=== PATIENT | female | born 1960 | race Caucasian/White ===

== ENCOUNTER 2017-08-07 11:26 | Inpatient (IN) | payer OTHER ==
[~2017-08-07] VITALS: Ht 165.1 cm; Wt 77.1 kg
[2017-08-07 11:27] VITALS: BP 133/75; PULSE 94; RESP 20; TEMP 98.7; O2SAT 96
[2017-08-07] MEDS ORDERED: MIDAZOLAM HCL 2 MG/2 ML VIAL IV ONE (11:53)
[2017-08-07] MEDS ORDERED: PROPOFOL 200 MG/20 ML AMP IV ONE (11:53)
[2017-08-07] MEDS ORDERED: PHENYLEPH/NS 1000 MCG/10 ML SYR IV ONE (11:53)
[2017-08-07] MEDS ORDERED: ONDANSETRON HCL 4 MG/2 ML VIAL IV PUSH ONE (11:53)
[2017-08-07] MEDS ORDERED: DEXAMETHASONE SOD PHOS 4 MG/ML VIAL IV ONE (11:53)
[2017-08-07] MEDS ORDERED: LIDOCAINE HCL 1% PF 5 ML AMPULE OTHER ONE (11:53)
[2017-08-07] MEDS ORDERED: SODIUM CHLOR 0.9% 1000 ML INJ 1,000 ML IV SCH (12:03)
[2017-08-07] MEDS ORDERED: MORPHINE SULFATE 4 MG/ML INJ IV PUSH ONE ×2 (12:15→13:30)
[2017-08-07] MEDS ORDERED: ONDANSETRON HCL 4 MG/2 ML VIAL IVP ONE (12:15)
[2017-08-07] MEDS ORDERED: SODIUM CHLORIDE 0.9% FLUSH 10 ML FLUSH IV FLUSH PRN ×2 (12:15→16:45)
[2017-08-07] MEDS ORDERED: LIDOCAINE 2%/EPINEPHrine 1:100,000 20ML MDV NERV BLOCK ONE (12:15)
--- NOTE | 2017-08-07 12:15 | PD ---
HPI Chief Complaint: Skin Problem Time Seen by Provider: 11:55 Travel History International Travel<30 days: No Contact w/Intl Traveler<30days: No Traveled to known affect area: No History of Present Illness HPI Patient comes in complaining of left elbow pain improves worsen past 2 days. Patient states on the ninth of this month she was in [place] she tripped and fell injuring her left elbow. Patient states she went to the ER there and had x-rays done in 3 sutures placed. Patient states approximately 9 days ago she began noticing some infection went to a different ER was started on Keflex had sutures removed. Patient states over the past 3 days began having swelling and sharp stabbing pain in her left elbow. Pain is worse with certain movement of her left elbow and radiates proximally and distally. Denies any fevers, nausea, vomiting, chest pain, shortness breath, new injury, or numbness tingling anywhere. Patient's been taking naproxen for the pain that was held initially however got progressively worse over the past 2 days. PFSH Past Medical History Arthritis: Yes Anxiety: Yes COPD: Yes Diverticulitis: Yes Fibromyalgia: Yes ?: Not Tubal Ligation: Yes Past Surgical History Appendectomy: Yes Cholecystectomy: Yes Other Surgery: Yes (left knee, colon resection ) Social History Alcohol Use: Yes (couple times a week ) Tobacco Use: Yes (light smoker) Substance Use: No Allergies-Medications (Allergen,Severity, Reaction): Coded Allergies: No Known Allergies (Unverified , 08/07/17) Reported Meds & Prescriptions Reported Meds & Active Scripts Active Reported Zofran (Ondansetron HCl) 4 Mg Tab 4 Mg PO Q12HR PRN Doxepin (Doxepin HCl) 50 Mg Cap 50 Mg PO BID Zinc Gluconate 50 Mg Tab 50 Mg PO DAILY Humira 2-Pack Inj (Adalimumab 2-Pack Inj) 40 Mg/0.8 Ml Syr 40 Mg SQ Q14D Prednisone 20 Mg Tab 20 Mg PO DIRECTED 40 MG twice a day x 3 days, then 20 MG daily x 3 days, then 10 MG daily x 3 days Proair Hfa 8.5 GM Inh (Albuterol Sulfate) 90 Mcg/Act Aer 1 Puff INH Q4H PRN 108 mcg/actuation Dulera 120 Act Inh (Mometasone-Formoterol 120 Act Inh) 200-5 Mcg/Act Inh 2 Puff INH BID Folic Acid 0.8 Mg Tab 1,000 Mcg PO DAILY Levothyroxine (Levothyroxine Sodium) 50 Mcg Tab 50 Mcg PO DAILY Vitamin D-1000 (Cholecalciferol) 1,000 Unit Tab 1,000 Units PO DAILY Methotrexate 2.5 Mg Tab 2.5 Mg PO Q7D Wellbutrin Xl 24 HR (Bupropion HCl) 150 Mg Tab 150 Mg PO DAILY Wellbutrin Xl 24 HR (Bupropion HCl) 300 Mg Tab 300 Mg PO DAILY Naproxen Sodium 220 Mg Tab 300 Mg PO BID PRN Propranolol (Propranolol HCl) 60 Mg Tab 60 Mg PO Q6HR PRN Prozac (Fluoxetine HCl) 40 Mg Cap 120 Mg PO DAILY Prevacid (Lansoprazole) 30 Mg Capdr 30 Mg PO DAILY Gabapentin 600 Mg Tab 600 Mg PO HS Gabapentin 300 Mg Cap 300 Mg PO DAILY Review of Systems Except as stated in HPI: all other systems reviewed are Neg Physical Exam Narrative GENERAL: Well-developed, overly nourished, in no acute distress, and non-ill appearing. SKIN: Focused skin assessment warm and dry. Soft tissue swelling over left elbow joint. There is no definitive fluid collection. There is no crepitus. No fluctuation or drainage. There is a well-healing scar from recent injury noted over the lateral posterior elbow. HEAD: Atraumatic. Normocephalic. EYES: Pupils equal and round. EOMI. No scleral icterus. No injection or drainage. ENT: No nasal bleeding or discharge. Mucous membranes pink and moist. NECK: Trachea midline. Supple. No nuclear rigidity. CARDIOVASCULAR: Radial pulses 2+, nontender, and equal bilaterally. Capillary refill less than 2 seconds. RESPIRATORY: No accessory muscle use. No respiratory distress. MUSCULOSKELETAL: No obvious deformities. No clubbing. No cyanosis. No edema. Decreased range of motion left elbow secondary pain. Patient is unable to extend left elbow secondary to pain. Patient reports pain with passive and active pronation left hand. Pulses equal BL distal to injury. Capillary refill less than 2 seconds distal to injury and equal BL. FROM distal to injury and equal BL. Strength distal to injury equal BL. NV intact distal to injury and equal BL. Flexion and extension of thumb equal BL. Equal strength and movement with abduction/adductions of BL fingers. Electronic Test Technician strength equal BL. NEUROLOGICAL: Awake and alert. No obvious cranial nerve deficits. Motor grossly within normal limits. Normal speech. PSYCHIATRIC: Appropriate mood and affect; insight and judgment normal. Data Data Last Documented VS Vital Signs Date Time Temp Pulse Resp B/P (MAP) Pulse Ox O2 Delivery O2 Flow Rate FiO2 08/07/17 15:59 97.7 92 16 132/80 (97) 93 Room Air Orders Orders Basic Metabolic Panel (Bmp) (08/07/17 12:03) Complete Blood Count With Diff (08/07/17 12:03) Prothrombin Time / Inr (Pt) (08/07/17 12:03) Act Partial Throm Time (Ptt) (08/07/17 12:03) Iv Access Insert/Monitor (08/07/17 12:03) Ecg Monitoring (08/07/17 12:03) Oximetry (08/07/17 12:03) Morphine Inj (Morphine Inj) (08/07/17 12:15) Ondansetron Inj (Zofran Inj) (08/07/17 12:15) Sodium Chlor 0.9% 1000 Ml Inj (Ns 1000 M (08/07/17 12:03) Sodium Chloride 0.9% Flush (Ns Flush) (08/07/17 12:15) Lidocai-Epi 2%-1:100,000 Inj (Xylocaine- (08/07/17 12:15) Lactic Acid Sepsis Protocol (08/07/17 12:03) Blood Culture (08/07/17 12:03) Elbow, Complete (4 Vws) (08/07/17 ) Us Arm Venous Doppler (08/07/17 12:13) Uric Acid (08/07/17 12:15) Morphine Inj (Morphine Inj) (08/07/17 13:30) Mri Joint Elbow W&W/O Contrast (08/07/17 ) Lorazepam Inj (Ativan Inj) (08/07/17 14:00) Gadodiamide Pf Inj (Omniscan Pf Inj) (08/07/17 14:57) C-Reactive Protein (Crp) (08/07/17 15:09) Westergren Sedimentation Rate (08/07/17 15:09) Consult Orthopedic (08/07/17 ) Electrocardiogram (08/07/17 ) Comprehensive Metabolic Panel (08/08/17 06:00) Free Thyroxine (T4) (08/08/17 06:00) Hemoglobin (Hgb) A1c (08/08/17 06:00) Magnesium (Mg) (08/08/17 06:00) Phosphorus (Po4) (08/08/17 06:00) Thyroid Stimulating Hormone (08/08/17 06:00) Complete Blood Count With Diff (08/08/17 06:00) Clonidine (Catapres) (08/07/17 16:45) Admit Order (Ed Use Only) (08/07/17 16:34) Labs Laboratory Tests Test 08/07/17 12:25 08/07/17 12:34 White Blood Count 11.5 TH/MM3 Red Blood Count 3.54 MIL/MM3 Hemoglobin 12.1 GM/DL Hematocrit 36.5 % Mean Corpuscular Volume 103.0 FL Mean Corpuscular Hemoglobin 34.1 PG Mean Corpuscular Hemoglobin Concent 33.1 % Red Cell Distribution Width 14.3 % Platelet Count 378 TH/MM3 Mean Platelet Volume 7.5 FL Neutrophils (%) (Auto) 71.3 % Lymphocytes (%) (Auto) 14.8 % Monocytes (%) (Auto) 9.0 % Eosinophils (%) (Auto) 4.6 % Basophils (%) (Auto) 0.3 % Neutrophils # (Auto) 8.2 TH/MM3 Lymphocytes # (Auto) 1.7 TH/MM3 Monocytes # (Auto) 1.0 TH/MM3 Eosinophils # (Auto) 0.5 TH/MM3 Basophils # (Auto) 0.0 TH/MM3 CBC Comment DIFF FINAL Differential Comment Erythrocyte Sedimentation Rate 57 mm/hr Prothrombin Time 11.4 SEC Prothromb Time International Ratio 1.0 RATIO Activated Partial Thromboplast Time 28.0 SEC Blood Urea Nitrogen 15 MG/DL Creatinine 0.61 MG/DL Random Glucose 74 MG/DL Calcium Level 9.0 MG/DL Sodium Level 140 MEQ/L Potassium Level 3.4 MEQ/L Chloride Level 106 MEQ/L Carbon Dioxide Level 27.7 MEQ/L Anion Gap 6 MEQ/L Estimat Glomerular Filtration Rate 101 ML/MIN Lactic Acid Level 0.7 mmol/L C-Reactive Protein 22.00 MG/DL Uric Acid 2.8 MG/DL MDM Medical Decision Making Medical Screen Exam Complete: Yes Emergency Medical Condition: Yes Interpretation(s) Ultrasound read by the radiologist shows: Negative for deep venous thrombosis. Left elbow x-ray read by the radiologist shows: Joint effusion, no fracture MRI of the left elbow read by the radiologist shows: Presumed inflammatory process mainly involving the brachialis. The joint is suspected to be infected as well. There is no osteomyelitis as yet. Differential Diagnosis Bursitis, septic arthritis, septic bursitis, DVT, retained foreign body, gout, pseudogout, other Narrative Course Patient was seen and exam. Initial laboratory and radiological studies were ordered. Patient was given morphine for pain. Zofran for nausea. Discussed patient with Dr. Galvez, who saw and evaluated the patient and recommends discussing patient with orthopedics over concerns possible septic arthritis. Discussed all findings and plan care of patient is agreeable for admission. All questions were answered. Patient remained stable throughout her ED course. Physician Communication Physician Communication [id number] Ferro, who recommends MRI for further evaluation to rule out possible septic joint and hold antibiotics for now. 1620 Dr. Ferro, active reviewing MRI with patient admitted to medicine for surgical intervention. [address] Haley, who is agreeable to admit the patient. [address] Sage, radiologist reading MRI, states pierced to be an abscess in the joint. Diagnosis Primary Impression: Joint infection Admitting Information Admitting Physician Requests: Admit Condition: Stable Rashaad Reina Aug 07, 2017 12:15
[2017-08-07 12:40] LABS: AUTOMATED NEUTROPHIL # 8.2 TH/MM3 (1.8-7.7); BASOPHIL % 0.3 % (0.0-2.0); EOSINOPHIL # 0.5 TH/MM3 (0-0.4); EOSINOPHIL % 4.6 % (0.0-4.0); HEMATOCRIT 36.5 % (35.0-46.0); HEMO FLAGS DIFF FINAL; LYMPH % 14.8 % (9.0-44.0); LYMPHOCYTE # 1.7 TH/MM3 (1.0-4.8); MEAN CORPUSCULAR HEMOGLOBIN 34.1 PG (27.0-34.0); MEAN CORPUSCULAR HGB CONC 33.1 % (32.0-36.0); NEUT % 71.3 % (16.0-70.0); PLATELET COUNT 378 TH/MM3 (150-450); RED BLOOD COUNT 3.54 MIL/MM3 (4.00-5.30); RED CELL DISTRIBUTION WIDTH 14.3 % (11.6-17.2); WHITE BLOOD COUNT 11.5 TH/MM3 (4.0-11.0)
[2017-08-07 12:51] LABS: PROTHROMBIN TIME - PATIENT 11.4 SEC (9.8-11.6)
--- NOTE | 2017-08-07 13:02 | RADRPT ---
EXAM DATE/TIME: 08/07/2017 12:30 [facility] COMPARISON: No previous studies available for comparison. INDICATIONS : Left arm swelling and pain. MEDICAL HISTORY : Chronic obstructive pulmonary disease. Diverticulitis. Arthritis. Fibromyalgia. Anixety. SURGICAL HISTORY : Appendectomy. Cholecystectomy. Tubal ligation. Left knee surgery. Colon resec tion. ENCOUNTER: Initial ACUITY: 2 day PAIN SCORE: 8/10 LOCATION: Left arm. FINDINGS: There is spontaneous flow documented in the brachial, basilic, cephalic, axillary, and subclavian vei ns. The vessels are compressible and augmentation response is documented. No filling defects are se en. The flow is phasic with respiration. Direction of flow in the jugular vein is caudal. CONCLUSION: Negative for deep venous thrombosis. Naveed Sage MD FACR on August 07, 2017 at 13:00 Board Certified Radiologist. This report was verified electronically.
[2017-08-07 13:04] LABS: BICARBONATE 27.7 MEQ/L (21.0-32.0); POTASSIUM 3.4 MEQ/L (3.5-5.1)
--- NOTE | 2017-08-07 13:59 | RADRPT ---
EXAM DATE/TIME: 08/07/2017 13:12 [facility] COMPARISON: No previous studies available for comparison. INDICATIONS : Fell 07-20-17 laceration to left elbow, sutured/sutures removed, now swollen, red, hot to touch, with d ifficult motion. MEDICAL HISTORY : None. SURGICAL HISTORY : None. ENCOUNTER: Initial ACUITY: 2 weeks PAIN SCORE: 10/10 LOCATION: Left elbow. FINDINGS: Moderate joint effusion is evident. Alignment is anatomic. No fracture CONCLUSION: Joint effusion, no fracture Naveed Sage MD FACR on August 07, 2017 at 13:56 Board Certified Radiologist. This report was verified electronically.
[2017-08-07] MEDS ORDERED: LORazepam 2 MG/ML VIAL IV PUSH ONE (14:00)
[2017-08-07] MEDS ORDERED: GADODIAMIDE PF 287 MG/ML 5 ML VIAL (for RAD MRI) IVCONTRAST ONE (14:57)
[2017-08-07 15:59] VITALS: BP 132/80; PULSE 92; RESP 16; TEMP 97.7; O2SAT 93
[2017-08-07] MEDS ORDERED: GABA300C5 PO (16:11)
[2017-08-07] MEDS ORDERED: GABA600T PO (16:11)
[2017-08-07] MEDS ORDERED: PREV30CA11 PO (16:15)
[2017-08-07] MEDS ORDERED: PROZ40CA PO (16:15)
[2017-08-07] MEDS ORDERED: VITA1000 PO (16:22)
[2017-08-07] MEDS ORDERED: ALBUAER3 INH (16:22)
[2017-08-07] MEDS ORDERED: MEDI220T PO (16:22)
[2017-08-07] MEDS ORDERED: PRED20 PO (16:22)
[2017-08-07] MEDS ORDERED: METH2.5T PO (16:22)
[2017-08-07] MEDS ORDERED: WELLTAB39 PO (16:22)
[2017-08-07] MEDS ORDERED: LEVO50TA4 PO (16:22)
[2017-08-07] MEDS ORDERED: PROP60TA PO (16:22)
[2017-08-07] MEDS ORDERED: HUMI40KI SQ (16:22)
[2017-08-07] MEDS ORDERED: FOLI800T PO (16:22)
[2017-08-07] MEDS ORDERED: DULE200A INH (16:22)
[2017-08-07] MEDS ORDERED: BUPR150XL PO (16:22)
[2017-08-07] MEDS ORDERED: ZOFR4TAB PO (16:23)
[2017-08-07] MEDS ORDERED: DOXE50CA3 PO (16:23)
[2017-08-07] MEDS ORDERED: CYAN1TAB24 (16:23)
[2017-08-07] MEDS ORDERED: ZINC50TA2 PO (16:23)
--- NOTE | 2017-08-07 16:40 | RADRPT ---
EXAM DATE/TIME: 08/07/2017 14:11 [facility] COMPARISON: No previous studies available for comparison. INDICATIONS : Left elbow pain and swelling after falling two weeks ago, which caused a cut wit h stitches. CONTRAST: 15 cc Omniscan (gadodiamide) IV MEDICAL HISTORY : None. SURGICAL HISTORY : Appendectomy. Cholecystectomy. Colon resection. Lt knee, tonsils ENCOUNTER: Subsequent ACUITY: 1 week PAIN SCORE: 5/10 LOCATION: Left elbow TECHNIQUE: Multiplanar, multisequence MRI examination was performed without contrast and after th e intravenous administration of gadolinium. FINDINGS: There is a large fluid collection in the brachialis muscle adjacent to the bone showing intense contrast enhancement around the fluid collection and in the muscle. This enhancement extend s anteriorly into the antecubital fossa in intimate association with the effusion present that shows intense enhancement as well. There is the most part spared the biceps. The bulk of this lies latera l to and displaces the neurovascular bundle. There is an early bifurcation of the brachial artery ju st above the elbow. artery above the elbow Extensive subcutaneous edema is present without defined fluid collections. I do not see any marrow edema to suggest osteomyelitis. CONCLUSION: Presumed inflammatory process mainly involving the brachialis. The joint is suspecte d to be infected as well. There is no osteomyelitis as yet. Neurovascular bundle is displaced media lly there are brachial bifurcation findings have been discussed with Latosha FRANCOIS on today's date. Naveed Sage MD FACR on August 07, 2017 at 16:29 Board Certified Radiologist. This report was verified electronically.
[2017-08-07] MEDS ORDERED: oxyCODONE/ACETAMINOPHEN 5 MG/325 MG TAB PO PRN (16:45)
[2017-08-07] MEDS ORDERED: MAGNESIUM HYDROXIDE SUSP 30 ML CUP PO PRN (16:45)
[2017-08-07] MEDS ORDERED: ALBUTEROL SULFATE 90 MCG/ACT HFA 8 GM INHALER INH PRN (16:45)
[2017-08-07] MEDS ORDERED: PROPRANOLOL HCL 20 MG TAB PO PRN (16:45)
[2017-08-07] MEDS ORDERED: NALOXONE HCL 0.4 MG/ML AMP IV PUSH PRN (16:45)
[2017-08-07] MEDS ORDERED: LACTULOSE SYRUP 20 GM/30 ML CUP PO PRN (16:45)
[2017-08-07] MEDS ORDERED: SENNOSIDES 8.6 MG TAB PO PRN (16:45)
[2017-08-07] MEDS ORDERED: ONDANSETRON ODT 4 MG TAB PO PRN (16:45)
[2017-08-07] MEDS ORDERED: ONDANSETRON HCL 4 MG/2 ML VIAL IVP PRN (16:45)
[2017-08-07] MEDS ORDERED: cloNIDine HCL 0.1 MG TAB PO PRN (16:45)
[2017-08-07] MEDS ORDERED: PROCHLORPERAZINE 25 MG SUPP RECTAL PRN (16:45)
[2017-08-07] MEDS ORDERED: MORPHINE SULFATE 4 MG/ML INJ IV PUSH PRN ×2 (16:45)
[2017-08-07] MEDS ORDERED: BISACODYL 10 MG SUPP RECTAL PRN (16:45)
[2017-08-07 16:55] VITALS: O2SAT 96
--- NOTE | 2017-08-07 17:17 | RADRPT ---
EXAM DATE/TIME: 08/07/2017 16:38 [facility] COMPARISON: No previous studies available for comparison. INDICATIONS : Cough. MEDICAL HISTORY : Appendectomy. Cholecystectomy. Colon resection. SURGICAL HISTORY : None. ENCOUNTER: Initial ACUITY: 1 day PAIN SCORE: Non-responsive. LOCATION: Bilateral chest FINDINGS: A single view of the chest demonstrates the lungs to be symmetrically aerated without evidence of mas s, infiltrate or effusion. The cardiomediastinal contours are unremarkable. Osseous structures are intact. CONCLUSION: No acute disease. Naveed Sage MD FACR on August 07, 2017 at 17:15 Board Certified Radiologist. This report was verified electronically.
--- NOTE | 2017-08-07 17:47 | PD.CONS ---
HPI Service Orthopedic Surgeons Consult Requested By Reason for Consult Concern for septic arthritis left elbow Primary Care Physician No Primary Care Physician Admission Diagnosis Left elbow septic arthritis and abscess Diagnoses: Chief Complaint: Left elbow pain and swelling History of Present Illness 57yo F with history of fall ~20 days ago with superficial left elbow laceration which was sutured in the ED in [place]. About 10 days ago, sutures were removed and there was concern for infection and patient was started on keflex. Patient reports the last 3 days increasing left elbow pain, swelling, redness and increasing pain on the anterior aspect of her distal arm. She denies any numbness or tingling. Denies fevers or chills. Denies any drainage from wound. Review of Systems Constitutional: DENIES: Fever, Night Sweats Endocrine: DENIES: Polyuria Eyes: DENIES: Blurred vision Ears, nose, mouth, throat: DENIES: Running Nose Respiratory: DENIES: Cough, Shortness of breath Cardiovascular: DENIES: Chest pain Gastrointestinal: DENIES: Abdominal pain Genitourinary: DENIES: Hematuria Musculoskeletal: COMPLAINS OF: Joint pain, Muscle aches, Stiffness, Joint Swelling Integumentary: DENIES: Rash Hematologic/lymphatic: DENIES: Lymphadenopathy Immunologic/allergic: DENIES: Eczema Neurologic: DENIES: Headache Psychiatric: DENIES: Anxiety Past Family Social History Past Medical History Rheumatoid arthritis on methrotrexate and biweekly humira injections Allergies: Coded Allergies: No Known Allergies (Unverified , 08/07/17) Active Ordered Medications Current Medications Medications (Trade) Dose Ordered Sig/Leon Route Start Time Stop Time Status Last Admin (NS Flush) 2 ml UNSCH PRN IV FLUSH 08/07/17 12:15 (Catapres) 0.1 mg Q4H PRN PO 08/07/17 16:45 Sodium Chloride 1,000 ml @ 100 mls/hr Q10H IV 08/07/17 16:34 (NS Flush) 2 ml UNSCH PRN IV FLUSH 08/07/17 16:45 (NS Flush) 2 ml BID IV FLUSH 08/07/17 21:00 (Tylenol) 650 mg Q4H PRN PO 08/07/17 16:45 (Zofran Inj) 4 mg Q6H PRN IVP 08/07/17 16:45 (Compazine Supp) 25 mg Q12H PRN RECTAL 08/07/17 16:45 (Ambien) 5 mg HS PRN PO 08/07/17 16:45 (Tylenol) 650 mg Q6H PRN PO 08/07/17 16:45 (Percocet 5-325 Mg) 1 tab Q6H PRN PO 08/07/17 16:45 (Percocet 10-325 Mg) 1 tab Q6H PRN PO 08/07/17 16:45 (Morphine Inj) 2 mg Q3H PRN IV PUSH 08/07/17 16:45 (Morphine Inj) 4 mg Q3H PRN IV PUSH 08/07/17 16:45 (Narcan Inj) 0.4 mg UNSCH PRN IV PUSH 08/07/17 16:45 (Ronit-Colace) 1 tab BID PO 08/07/17 21:00 (Milk Of Magnesia Liq) 30 ml Q12H PRN PO 08/07/17 16:45 (Senokot) 17.2 mg Q12H PRN PO 08/07/17 16:45 (Dulcolax Supp) 10 mg DAILY PRN RECTAL 08/07/17 16:45 (Lactulose Liq) 30 ml DAILY PRN PO 08/07/17 16:45 (Proair Hfa Inh) 1 puff Q4H PRN INH 08/07/17 16:45 (Wellbutrin Xl 24 Hr) 150 mg DAILY PO 08/08/17 09:00 UNV (Wellbutrin Xl 24 Hr) 300 mg DAILY PO 08/08/17 09:00 UNV (Vitamin D3) 1,000 units DAILY PO 08/08/17 09:00 (SINEquan) 50 mg BID PO 08/07/17 21:00 (Folate) 1 mg DAILY PO 08/08/17 09:00 (Neurontin) 300 mg DAILY PO 08/08/17 09:00 (Neurontin) 600 mg HS PO 08/07/17 21:00 (Synthroid) 50 mcg DAILY PO 08/08/17 09:00 (Rheumatrex) 2.5 mg Q7D PO 08/07/17 16:45 UNV Non-Formulary Medication 120 mg DAILY PO 08/08/17 09:00 UNV (Protonix) 40 mg DAILY PO 08/08/17 09:00 Non-Formulary Medication 2 puff BID INH 08/07/17 21:00 Non-Formulary Medication 4 mg Q12HR PRN PO 08/07/17 16:45 UNV (Inderal) 60 mg Q6HR PRN PO 08/07/17 16:45 Reported Meds & Active Scripts Active Reported Zofran (Ondansetron HCl) 4 Mg Tab 4 Mg PO Q12HR PRN Doxepin (Doxepin HCl) 50 Mg Cap 50 Mg PO BID Zinc Gluconate 50 Mg Tab 50 Mg PO DAILY Humira 2-Pack Inj (Adalimumab 2-Pack Inj) 40 Mg/0.8 Ml Syr 40 Mg SQ Q14D Prednisone 20 Mg Tab 20 Mg PO DIRECTED 40 MG twice a day x 3 days, then 20 MG daily x 3 days, then 10 MG daily x 3 days Proair Hfa 8.5 GM Inh (Albuterol Sulfate) 90 Mcg/Act Aer 1 Puff INH Q4H PRN 108 mcg/actuation Dulera 120 Act Inh (Mometasone-Formoterol 120 Act Inh) 200-5 Mcg/Act Inh 2 Puff INH BID Folic Acid 0.8 Mg Tab 1,000 Mcg PO DAILY Levothyroxine (Levothyroxine Sodium) 50 Mcg Tab 50 Mcg PO DAILY Vitamin D-1000 (Cholecalciferol) 1,000 Unit Tab 1,000 Units PO DAILY Methotrexate 2.5 Mg Tab 2.5 Mg PO Q7D Wellbutrin Xl 24 HR (Bupropion HCl) 150 Mg Tab 150 Mg PO DAILY Wellbutrin Xl 24 HR (Bupropion HCl) 300 Mg Tab 300 Mg PO DAILY Naproxen Sodium 220 Mg Tab 300 Mg PO BID PRN Propranolol (Propranolol HCl) 60 Mg Tab 60 Mg PO Q6HR PRN Prozac (Fluoxetine HCl) 40 Mg Cap 120 Mg PO DAILY Prevacid (Lansoprazole) 30 Mg Capdr 30 Mg PO DAILY Gabapentin 600 Mg Tab 600 Mg PO HS Gabapentin 300 Mg Cap 300 Mg PO DAILY Family History No history of septic arthritis Social History Denies smoking. Occasional alcohol. Just moved from [place] Physical Exam Vital Signs Vital Signs Date Time Temp Pulse Resp B/P (MAP) Pulse Ox O2 Delivery O2 Flow Rate FiO2 08/07/17 16:55 96 21 08/07/17 15:59 97.7 92 16 132/80 (97) 93 Room Air 08/07/17 15:35 16 08/07/17 15:35 16 08/07/17 11:45 95 18 08/07/17 11:27 98.7 94 20 133/75 (94) 96 Room Air Physical Exam Awake, alert. NAD Normocephalic Non-labored respirations Regular rate No abdominal pain or distension No appreciable axillary lymphadenopathy BUE LUE: significant edema, mild erythema and TTP about the distal arm and elbow. Allows ROM from approx 50-100 deg. Will not fully extend or flex. Palpable radial pulse. 5/5 strength with wrist flexion/extension, finger flexion and extension. RUE & BLE: without edema, erythema or TTP. Normal strength and sensation Laboratory Laboratory Tests Test 08/07/17 12:25 08/07/17 12:34 White Blood Count 11.5 Red Blood Count 3.54 Hemoglobin 12.1 Hematocrit 36.5 Mean Corpuscular Volume 103.0 Mean Corpuscular Hemoglobin 34.1 Mean Corpuscular Hemoglobin Concent 33.1 Red Cell Distribution Width 14.3 Platelet Count 378 Mean Platelet Volume 7.5 Neutrophils (%) (Auto) 71.3 Lymphocytes (%) (Auto) 14.8 Monocytes (%) (Auto) 9.0 Eosinophils (%) (Auto) 4.6 Basophils (%) (Auto) 0.3 Neutrophils # (Auto) 8.2 Lymphocytes # (Auto) 1.7 Monocytes # (Auto) 1.0 Eosinophils # (Auto) 0.5 Basophils # (Auto) 0.0 CBC Comment DIFF FINAL Differential Comment Erythrocyte Sedimentation Rate 57 Prothrombin Time 11.4 Prothromb Time International Ratio 1.0 Activated Partial Thromboplast Time 28.0 Blood Urea Nitrogen 15 Creatinine 0.61 Random Glucose 74 Calcium Level 9.0 Sodium Level 140 Potassium Level 3.4 Chloride Level 106 Carbon Dioxide Level 27.7 Anion Gap 6 Estimat Glomerular Filtration Rate 101 Lactic Acid Level 0.7 C-Reactive Protein 22.00 Uric Acid 2.8 Date/Time Source Procedure Growth Status 08/07/17 12:25 Blood Peripheral Aerobic Blood Culture Pending Received 08/07/17 12:25 Blood Peripheral Anaerobic Blood Culture Pending Received Result Diagram: 08/07/17 1225 08/07/17 1225 Imaging L elbow XR without evidence of fracture L elbow MRI with significant joint effusion and tracking abscess deep to brachialis and stranding within brachialis concerning for infection Assessment & Plan Problem List: (1) Joint infection ICD Codes: M00.9 - Pyogenic arthritis, unspecified Status: Acute Plan: Discussed with the patient the concern for left elbow septic arthritis with deep abscess. Risks, benefits and alternatives of surgical management discussed with the patient. Plan is for left elbow irrigation and debridement. I explained the risks of surgery, including but not limited to recurrent infection, need for further surgery, long-term damage to the joint, possible damage to neurovascular structures, and other unforeseen complications. Patient voiced understanding and wishes to proceed with surgery. NPO for OR today Plan for intraop cultures. Please hold antibiotics unless patient becomes unstable. Ethel Ferro MD Aug 07, 2017 17:47
--- NOTE | 2017-08-07 17:58 | HHI.HP ---
HPI Service [facility] Primary Care Physician No Primary Care Physician Admission Diagnosis left elbow joint abscess Diagnoses: (1) Joint infection Diagnosis: Principal Chief Complaint: Left elbow pain and swelling Travel History International Travel<30 Days: No Contact w/Intl Traveler <30 Da: No Traveled to Known Affected Are: No History of Present Illness Ms. Hollingsworth is a 57-year-old female patient with a known medical history of COPD , rheumatoid arthritis and fibromyalgia who presented to the ED with complaints of worsening left elbow swelling and pain. Patient states that she was in [place] earlier this month with friends and tripped, falling on her elbow. At the time patient went to the hospital for sutures and 9 days later started to develop swelling and erythema to the site, was placed on Keflex and sutures removed. Patient noticed three days ago the elbow began to swell again and develop erythema with worsening pain so she presented here. Pain is throbbing in nature, focused in the olecranon area, no radiation, 7/10 on pain scale, with activity worsening pain and pain medication relieving pain for a short time. Patient denies any recent illness including associated fevers, chills, cough, headache, lightheadedness, dizziness, shortness of breath, abdominal pain , nausea, vomiting, diarrhea or dysuria. Denies any numbness or tingling to left hand or arm. Review of Systems Constitutional: DENIES: Fever, Chills Endocrine: DENIES: Polydipsia, Polyuria, Polyphagia Eyes: DENIES: Diplopia, Vision loss Respiratory: DENIES: Cough, Sputum production, Shortness of breath Cardiovascular: DENIES: Chest pain, Palpitations Gastrointestinal: DENIES: Abdominal pain, Bloody stools, Constipation, Diarrhea , Nausea, Vomiting Musculoskeletal: COMPLAINS OF: Joint pain, Joint Swelling (left elbow) Integumentary: DENIES: Abnormal pigmentation, Pruritus Hematologic/lymphatic: DENIES: Bruising, Lymphadenopathy Immunologic/allergic: DENIES: Eczema, Urticaria Neurologic: DENIES: Abnormal gait, Headache, Localized weakness, Paresthesias Psychiatric: DENIES: Anxiety, Confusion, Mood changes, Depression Except as stated in HPI: all other systems reviewed are Neg Past Family Social History Past Medical History Rheumatoid arthritis Anxiety COPD Diverticulitis Fibromyalgia Depression Past Surgical History Left knee surgery x 2 Colon resection 8 years ago Tubal ligation Reported Medications Active Reported Zofran (Ondansetron HCl) 4 Mg Tab 4 Mg PO Q12HR PRN Doxepin (Doxepin HCl) 50 Mg Cap 50 Mg PO BID Zinc Gluconate 50 Mg Tab 50 Mg PO DAILY Humira 2-Pack Inj (Adalimumab 2-Pack Inj) 40 Mg/0.8 Ml Syr 40 Mg SQ Q14D Prednisone 20 Mg Tab 20 Mg PO DIRECTED 40 MG twice a day x 3 days, then 20 MG daily x 3 days, then 10 MG daily x 3 days Proair Hfa 8.5 GM Inh (Albuterol Sulfate) 90 Mcg/Act Aer 1 Puff INH Q4H PRN 108 mcg/actuation Dulera 120 Act Inh (Mometasone-Formoterol 120 Act Inh) 200-5 Mcg/Act Inh 2 Puff INH BID Folic Acid 0.8 Mg Tab 1,000 Mcg PO DAILY Levothyroxine (Levothyroxine Sodium) 50 Mcg Tab 50 Mcg PO DAILY Vitamin D-1000 (Cholecalciferol) 1,000 Unit Tab 1,000 Units PO DAILY Methotrexate 2.5 Mg Tab 2.5 Mg PO Q7D Wellbutrin Xl 24 HR (Bupropion HCl) 150 Mg Tab 150 Mg PO DAILY Wellbutrin Xl 24 HR (Bupropion HCl) 300 Mg Tab 300 Mg PO DAILY Naproxen Sodium 220 Mg Tab 300 Mg PO BID PRN Propranolol (Propranolol HCl) 60 Mg Tab 60 Mg PO Q6HR PRN Prozac (Fluoxetine HCl) 40 Mg Cap 120 Mg PO DAILY Prevacid (Lansoprazole) 30 Mg Capdr 30 Mg PO DAILY Gabapentin 600 Mg Tab 600 Mg PO HS Gabapentin 300 Mg Cap 300 Mg PO DAILY Allergies: Coded Allergies: No Known Allergies (Unverified , 08/07/17) Active Ordered Medications Current Medications Medications (Trade) Dose Ordered Sig/Leon Route Start Time Stop Time Status Last Admin (NS Flush) 2 ml UNSCH PRN IV FLUSH 08/07/17 12:15 (Catapres) 0.1 mg Q4H PRN PO 08/07/17 16:45 Sodium Chloride 1,000 ml @ 100 mls/hr Q10H IV 08/07/17 16:34 (NS Flush) 2 ml UNSCH PRN IV FLUSH 08/07/17 16:45 (NS Flush) 2 ml BID IV FLUSH 08/07/17 21:00 (Tylenol) 650 mg Q4H PRN PO 08/07/17 16:45 (Zofran Inj) 4 mg Q6H PRN IVP 08/07/17 16:45 (Compazine Supp) 25 mg Q12H PRN RECTAL 08/07/17 16:45 (Ambien) 5 mg HS PRN PO 08/07/17 16:45 (Tylenol) 650 mg Q6H PRN PO 08/07/17 16:45 (Percocet 5-325 Mg) 1 tab Q6H PRN PO 08/07/17 16:45 (Percocet 10-325 Mg) 1 tab Q6H PRN PO 08/07/17 16:45 (Morphine Inj) 2 mg Q3H PRN IV PUSH 08/07/17 16:45 (Morphine Inj) 4 mg Q3H PRN IV PUSH 08/07/17 16:45 (Narcan Inj) 0.4 mg UNSCH PRN IV PUSH 08/07/17 16:45 (Ronit-Colace) 1 tab BID PO 08/07/17 21:00 (Milk Of Magnesia Liq) 30 ml Q12H PRN PO 08/07/17 16:45 (Senokot) 17.2 mg Q12H PRN PO 08/07/17 16:45 (Dulcolax Supp) 10 mg DAILY PRN RECTAL 08/07/17 16:45 (Lactulose Liq) 30 ml DAILY PRN PO 08/07/17 16:45 (Proair Hfa Inh) 1 puff Q4H PRN INH 08/07/17 16:45 (Wellbutrin Xl 24 Hr) 150 mg DAILY PO 08/08/17 09:00 UNV (Wellbutrin Xl 24 Hr) 300 mg DAILY PO 08/08/17 09:00 UNV (Vitamin D3) 1,000 units DAILY PO 08/08/17 09:00 (SINEquan) 50 mg BID PO 08/07/17 21:00 (Folate) 1 mg DAILY PO 08/08/17 09:00 (Neurontin) 300 mg DAILY PO 08/08/17 09:00 (Neurontin) 600 mg HS PO 08/07/17 21:00 (Synthroid) 50 mcg DAILY PO 08/08/17 09:00 (Rheumatrex) 2.5 mg Q7D PO 08/07/17 16:45 UNV Non-Formulary Medication 120 mg DAILY PO 08/08/17 09:00 UNV (Protonix) 40 mg DAILY PO 08/08/17 09:00 Non-Formulary Medication 2 puff BID INH 08/07/17 21:00 Non-Formulary Medication 4 mg Q12HR PRN PO 08/07/17 16:45 UNV (Inderal) 60 mg Q6HR PRN PO 08/07/17 16:45 Family History Denies any significant family medical history. Social History Patient admits to smoking cigarettes socially. Admits to drinking alcohol socially. Denies any illicit drug use. Physical Exam Vital Signs Vital Signs Date Time Temp Pulse Resp B/P (MAP) Pulse Ox O2 Delivery O2 Flow Rate FiO2 08/07/17 16:55 96 21 08/07/17 15:59 97.7 92 16 132/80 (97) 93 Room Air 08/07/17 15:35 16 08/07/17 15:35 16 08/07/17 11:45 95 18 08/07/17 11:27 98.7 94 20 133/75 (94) 96 Room Air Physical Exam GENERAL: This is a well-nourished, well-developed female patient, sitting up in bed in no apparent distress. SKIN: No rashes, ecchymoses or lesions. Warm and dry. HEENT: Atraumatic. Normocephalic. Pupils equal round and reactive. Extraocular motions intact. No scleral icterus. No injection or drainage. Nose without bleeding. Airway patent. NECK: Trachea midline. No JVD. Supple. CARDIOVASCULAR: Regular rate and rhythm without murmurs, gallops, or rubs. S1 and S2 present. No S3 or S4. RESPIRATORY: Clear to auscultation. Breath sounds equal bilaterally. No wheezes , rales, or rhonchi. GASTROINTESTINAL: Abdomen soft, non-tender, nondistended. No guarding. MUSCULOSKELETAL: Extremities without clubbing, cyanosis. Left elbow edema and tenderness, erythremic NEUROLOGICAL: Awake and alert. Cranial nerves II through XII intact. Motor and sensory grossly within normal limits. Five out of 5 muscle strength in all muscle groups. Normal speech. Site and judgment is good mood and behavior is appropriate Laboratory Laboratory Tests Test 08/07/17 12:25 08/07/17 12:34 White Blood Count 11.5 Red Blood Count 3.54 Hemoglobin 12.1 Hematocrit 36.5 Mean Corpuscular Volume 103.0 Mean Corpuscular Hemoglobin 34.1 Mean Corpuscular Hemoglobin Concent 33.1 Red Cell Distribution Width 14.3 Platelet Count 378 Mean Platelet Volume 7.5 Neutrophils (%) (Auto) 71.3 Lymphocytes (%) (Auto) 14.8 Monocytes (%) (Auto) 9.0 Eosinophils (%) (Auto) 4.6 Basophils (%) (Auto) 0.3 Neutrophils # (Auto) 8.2 Lymphocytes # (Auto) 1.7 Monocytes # (Auto) 1.0 Eosinophils # (Auto) 0.5 Basophils # (Auto) 0.0 CBC Comment DIFF FINAL Differential Comment Erythrocyte Sedimentation Rate 57 Prothrombin Time 11.4 Prothromb Time International Ratio 1.0 Activated Partial Thromboplast Time 28.0 Blood Urea Nitrogen 15 Creatinine 0.61 Random Glucose 74 Calcium Level 9.0 Sodium Level 140 Potassium Level 3.4 Chloride Level 106 Carbon Dioxide Level 27.7 Anion Gap 6 Estimat Glomerular Filtration Rate 101 Lactic Acid Level 0.7 C-Reactive Protein 22.00 Uric Acid 2.8 Date/Time Source Procedure Growth Status 08/07/17 12:25 Blood Peripheral Aerobic Blood Culture Pending Received 08/07/17 12:25 Blood Peripheral Anaerobic Blood Culture Pending Received Result Diagram: 08/07/17 1225 08/07/17 1225 Imaging Last Impressions Upper Extremity Ultrasound 08/07/17 1213 Signed Impressions: Service Date/Time: Monday, August 07, 2017 12:30 - CONCLUSION: Negative for deep venous thrombosis. Naveed Sage MD FACR Elbow X-Ray 08/07/17 0000 Signed Impressions: Service Date/Time: Monday, August 07, 2017 13:12 - CONCLUSION: Joint effusion, no fracture Naveed Sage MD FACR Caprini VTE Risk Assessment Caprini VTE Risk Assessment: No/Low Risk (score <= 1) Caprini Risk Assessment Model Point Value = 1 Point Value = 2 Point Value = 3 Point Value = 5 Age 41-60 Minor surgery BMI > 25 kg/m2 Swollen legs Varicose veins or History of unexplained or recurrent spontaneous Oral contraceptives or hormone replacement Sepsis (< 1 month) Serious lung disease, including pneumonia (< 1 month) Abnormal pulmonary function Acute myocardial infarction Congestive heart failure (< 1 month) History of inflammatory bowel disease Medical patient at bed rest Age 61-74 Arthroscopic surgery Major open surgery (> 45 min) Laparoscopic surgery (> 45 min) Malignancy Confined to bed (> 72 hours) Immobilizing plaster cast Central venous access Age >= 75 History of VTE Family history of VTE Factor V Leiden Prothrombin [id number] Lupus anticoagulant Anticardiolipin antibodies Elevated serum homocysteine Heparin-induced thrombocytopenia Other congenital or acquired thrombophilia Stroke (< 1 month) Elective arthroplasty Hip, pelvis, or leg fracture Acute spinal cord injury (< 1 month) Prophylaxis Regimen Total Risk Factor Score Risk Level Prophylaxis Regimen 0-1 Low Early ambulation 2 Moderate Order ONE of the following: *Sequential Compression Device (SCD) *Heparin 5000 units SQ BID 3-4 Higher Order ONE of the following medications: *Heparin 5000 units SQ TID *Enoxaparin/Lovenox 40 mg SQ daily (WT < 150 kg, CrCl > 30 mL/min) *Enoxaparin/Lovenox 30 mg SQ daily (WT < 150 kg, CrCl > 10-29 mL/min) *Enoxaparin/Lovenox 30 mg SQ BID (WT < 150 kg, CrCl > 30 mL/min) AND/OR *Sequential Compression Device (SCD) 5 or more Highest Order ONE of the following medications: *Heparin 5000 units SQ TID (Preferred with Epidurals) *Enoxaparin/Lovenox 40 mg SQ daily (WT < 150 kg, CrCl > 30 mL/min) *Enoxaparin/Lovenox 30 mg SQ daily (WT < 150 kg, CrCl > 10-29 mL/min) *Enoxaparin/Lovenox 30 mg SQ BID (WT < 150 kg, CrCl > 30 mL/min) AND *Sequential Compression Device (SCD) Assessment and Plan Assessment and Plan Ms. Hollingsworth is a 57-year-old female patient with a known medical history of COPD , rheumatoid arthritis and fibromyalgia who presented to the ED with complaints of worsening left elbow swelling and pain. Left elbow joint effusion with joint abscess - Left elbow x-ray reviewed showing joint effusion with no evidence of fracture. Left elbow MRI reviewed showing inflammatory process, no osteomyelitis seen, some joint infection which appears to be an abscess in the joint. - ESR elevated 57. CRP 22. - Upper left extremity ultrasound reviewed negative for DVT. - Blood cultures pending, follow. UA ordered, pending. - Afebrile. Slight leukocytosis, possible joint infection, continue to monitor. - Ensure hydration, NS at 100 ml/hr. - Control pain, Oxycodone PO available PRN per pain scale; Morphine IV available PRN per pain scale. - Control nausea, Zofran PRN. - Consult placed to orthopedic surgeon, appreciate recommendations. Plan for OR tonight. Keep NPO. Plan for intraoperative cultures. Recommendations to hold antibiotics unless patient unstable. Continue to follow clinically. Chronic obstructive pulmonary disease: Continue home Albuterol inhaler PRN. Supplemental O2 PRN to keep sats >92%. CXR reviewed showing no acute disease. Rheumatoid arthritis: Continue home Methotrexate. Hypothyroidism: Continue home Synthroid. Fibromyalgia: Continue home gabapentin. Depression: Continue home Doxepin and Bupropion. Hypokalemia: K 3.4. Replace. Monitor BMP in am. Follow. GI Prophylaxis: Protonix. DVT Prophylaxis: SCDs. Hold chemical prophylaxis secondary to plan for surgery. The exam, history, and the medical decision-making described in the above note were completed with the assistance of the mid-level provider. I reviewed and agree with the findings presented. I attest that I had a [id number] encounter with the patient on the same day, and personally performed and documented my assessment and findings in the medical record. Code Status Full Code Discussed Condition With Discussed with ER and nurse practitioner and patient and her family at bedside Physician Certification 2 Midnight Certification Type: Admission for Inpatient Services Order for Inpatient Services The services are ordered in accordance with Medicare regulations or non- Medicare payer requirements, as applicable. In the case of services not specified as inpatient-only, they are appropriately provided as inpatient services in accordance with the 2-midnight benchmark. Estimated LOS (days): 4 4 days is the estimated time the patient will need to remain in the hospital, assuming treatment plan goals are met and no additional complications. Post-Hospital Plan: Home Juliette Fernandes Aug 07, 2017 17:58 Naveed Haley DO Aug 07, 2017 18:49
[2017-08-07 18:19] LABS: BLOOD, URINE NEG (NEG); COMMENT (UR) CULT NOT INDICATED; CULTURE IF INDICATED CULT NOT INDICATED; GLUCOSE,URINE NEG (NEG); KETONE, URINE 40 mg/dL (NEG); NITRITE,URINE NEG (NEG); SQUAMOUS EPITHELIAL CELL URINE 1 /hpf (0-5); URINE COLOR YELLOW (YELLW/STRAW)
[2017-08-07] MEDS ORDERED: GENTAMICIN SULFATE 80 MG/2 ML VIAL ONE (18:51)
[2017-08-07] MEDS ORDERED: RESP: ALBUTEROL 2.5 MG/IPRATROPIUM 0.5 MG NEB (PRN) NEB (19:00)
[2017-08-07] MEDS ORDERED: VANCOMYCIN HCL 1000 MG VIAL ONE (19:26)
[2017-08-07] MEDS ORDERED: PIPERACIL-TAZO 3.375 GM PREMIX 50 ML IV SCH (20:00)
[2017-08-07] MEDS ORDERED: PIPERACIL-TAZO 3.375 GM PREMIX 50 ML IV ONE (20:15)
[2017-08-07] MEDS ORDERED: DO NOT ADM ANY ANTICOAGULANT DRUGS PRN (20:36)
--- NOTE | 2017-08-07 20:37 | HHI.PR ---
cc: Ethel Ferro MD Immediate Post Op Note Procedure Date: Aug 07, 2017 Pre Op Diagnosis: Left elbow septic arthritis Post Op Diagnosis: same Surgeon: Ethel Ferro Bookkeeping Teacher(s): none Procedure: Left elbow irrigation and debridement Findings: Purulence in left elbow joint and in deep to brachialis muscle Complications: none Specimen(s) removed: Cultures taken Estimated blood loss: ~75mL Ethel Ferro MD Aug 07, 2017 20:37
[2017-08-07] MEDS ORDERED: *morphine SULFATE 8 MG/ML PERIprocedure ONLY ONE ×3 (20:38→21:01)
[2017-08-07] MEDS ORDERED: Vancomycin Consult Pharmacy 1 EA OTHER SCH (20:45)
[2017-08-07] MEDS: DOCUSATE SODIUM 50 MG/SENNA 8.6 MG TAB PO SCH (21:00)
[2017-08-07] MEDS: SODIUM CHLORIDE 0.9% FLUSH 10 ML FLUSH IV FLUSH SCH (21:00)
[2017-08-07] MEDS: NON-FORMULARY DRUG (Mometasone-Formoterol 120 Act Inh (Dulera 120 Act Inh) 2 PUFF) INH SCH (21:00)
[2017-08-07] MEDS: SODIUM CHLOR 0.9% 1000 ML INJ 1,000 ML IV SCH (21:20)
[2017-08-07 21:30] VITALS: BP 122/75; PULSE 94; RESP 16; TEMP 96.9; O2SAT 91
[2017-08-07] MEDS ORDERED: MISCELLANEOUS NURSING INFORMATION SCH (21:40)
[2017-08-07] MEDS ORDERED: VANCOMYCIN HCL 1000 MG ON-CALL/NS 250 ML IV ONE ×2 (21:45)
[2017-08-07] MEDS: guaiFENesin E.R. 600 MG TAB PO SCH (21:50)
[2017-08-07] MEDS: GABAPENTIN 300 MG CAP PO SCH (21:50)
[2017-08-07] MEDS: DOXEPIN HCL 50 MG CAP PO SCH (21:51)
[2017-08-07] MEDS: oxyCODONE/ACETAMINOPHEN 10 MG/325 MG TAB PO PRN (21:51)
[2017-08-08] VITALS (7 sets, daily range): BP systolic 107–135; BP diastolic 72–83; PULSE 80–105; RESP 16–18; TEMP 96.2–98.1; O2SAT 90–96
[2017-08-08] MEDS: SODIUM CHLOR 0.9% 1000 ML INJ 1,000 ML IV SCH (05:13)
[2017-08-08] MEDS: PIPERACIL-TAZO 2.25 GM PREMIX 50 ML IV SCH ×3 (05:14→20:05)
[2017-08-08] MEDS: oxyCODONE/ACETAMINOPHEN 10 MG/325 MG TAB PO PRN ×3 (05:33→20:04)
--- NOTE | 2017-08-08 06:22 | PD.ORT.PN ---
Subjective Post Op Day #: 1 Subjective Remarks Patient reports pain relatively well controlled today. She does feel like her motion is slightly improved in her left elbow. Denies CP, SOB or abdominal pain. Denies fevers or chills Objective Vitals Vital Signs Date Time Temp Pulse Resp B/P (MAP) Pulse Ox O2 Delivery O2 Flow Rate FiO2 08/08/17 04:00 96.5 89 16 115/78 (90) 94 08/08/17 00:42 96.2 89 16 122/83 (96) 91 08/07/17 21:30 96.9 94 16 122/75 (91) 91 08/07/17 21:00 97 20 109/67 (81) 92 Nasal Cannula 4 08/07/17 20:45 99 18 107/64 (78) 92 Nasal Cannula 4 08/07/17 20:38 101 18 110/62 (78) 92 Nasal Cannula 4 08/07/17 20:36 98.2 101 16 106/62 (77) 92 Nasal Cannula 4 08/07/17 19:12 08/07/17 16:55 96 21 08/07/17 15:59 97.7 92 16 132/80 (97) 93 Room Air 08/07/17 15:35 16 08/07/17 15:35 16 08/07/17 11:45 95 18 08/07/17 11:27 98.7 94 20 133/75 (94) 96 Room Air I/O 08/07/17 08/07/17 08/07/17 08/08/17 08/08/17 08/08/17 07:00 15:00 23:00 07:00 15:00 23:00 Intake Total 1000 ml 900 ml 1730 ml Output Total 10 ml 600 ml Balance 1000 ml 890 ml 1130 ml Intake Oral 480 ml IV Total 1000 ml 100 ml 1250 ml Other 800 ml Output Urine Total 600 ml Estimated Blood Loss 10 ml Result Diagram: 08/07/17 1225 08/07/17 1225 Other Results Laboratory Tests Test 08/07/17 12:25 Prothromb Time International Ratio 1.0 RATIO Prothrombin Time 11.4 SEC (9.8-11.6) Imaging Last 24 hours Impressions Chest X-Ray 08/07/17 1634 Signed Impressions: Service Date/Time: Monday, August 07, 2017 16:38 - CONCLUSION: No acute disease. Naveed Sage MD FACR Upper Extremity Ultrasound 08/07/17 1213 Signed Impressions: Service Date/Time: Monday, August 07, 2017 12:30 - CONCLUSION: Negative for deep venous thrombosis. Naveed Sage MD FACR Objective Remarks Awake, alert, NAD LUE - DONALD and drain in place. ROM ~20-95 degrees without significant discomfort. NVI distally. Assessment & Plan Ortho Post Op Day #: 1 Problem List: (1) Joint infection ICD Codes: M00.9 - Pyogenic arthritis, unspecified Status: Acute Assessment and Plan Left elbow septic arthritis with deep abscess, POD#1 -WBAT LUE -Will ask OT to work on gentle elbow ROM as tolerated to avoid stiffness -Await cultures and gram stain from intraop -Continue IV abx. ID consulted for further management as patient will likely require several weeks of outpatient abx -Continue REBEKA. Plan will likely be to remove drain and dressing tomorrow (POD#2) -Would ask primary team to hold methotrexate and humira while treating active infection. Naproxen can be given (per patient controls RA, when unable to take other meds). Ethel Ferro MD Aug 08, 2017 06:22
--- NOTE | 2017-08-08 07:49 | EKG ---
Date Performed: 08/07/2017 Time Performed: 18:02:47 PTAGE: 57 years EKG: Sinus rhythm POSSIBLE LEFT ATRIAL ENLARGEMENT MODERATE ST DEPRESSION ABNORMAL ECG NO PREVIOUS TRACING DOCTOR: Dione Michelle Interpretating Date/Time 08/08/2017 07:47:07
[2017-08-08 08:52] LABS: AUTOMATED NEUTROPHIL # 7.1 TH/MM3 (1.8-7.7); BASOPHIL % 0.2 % (0.0-2.0); HEMATOCRIT 32.5 % (35.0-46.0); HEMO FLAGS DIFF FINAL; LYMPH % 7.9 % (9.0-44.0); LYMPHOCYTE # 0.6 TH/MM3 (1.0-4.8); MEAN CELL VOLUME 105.4 FL (80.0-100.0); MEAN CORPUSCULAR HEMOGLOBIN 34.6 PG (27.0-34.0); MEAN CORPUSCULAR HGB CONC 32.9 % (32.0-36.0); MONO % 2.3 % (0.0-8.0); NEUT % 89.6 % (16.0-70.0); PLATELET COUNT 326 TH/MM3 (150-450); RED BLOOD COUNT 3.09 MIL/MM3 (4.00-5.30); RED CELL DISTRIBUTION WIDTH 14.5 % (11.6-17.2); WHITE BLOOD COUNT 7.9 TH/MM3 (4.0-11.0)
[2017-08-08] MEDS: DOCUSATE SODIUM 50 MG/SENNA 8.6 MG TAB PO SCH ×2 (09:00→20:04)
[2017-08-08] MEDS: DOXEPIN HCL 50 MG CAP PO SCH ×2 (09:00→20:04)
[2017-08-08] MEDS ORDERED: NON-FORMULARY DRUG (Zinc Gluconate 50 MG) PO SCH (09:00)
[2017-08-08] MEDS ORDERED: buPROPion HCL 150 MG EXTENDED RELEASE TAB PO SCH ×2 (09:00)
[2017-08-08] MEDS ORDERED: FLUoxetine HCL 20 MG CAP PO SCH (09:00)
[2017-08-08 09:17] LABS: ANION GAP 9 MEQ/L (5-15); BICARBONATE 24.7 MEQ/L (21.0-32.0); BLOOD UREA NITROGEN 14 MG/DL (7-18); CHLORIDE 107 MEQ/L (98-107); GLOMERULAR FILTRATION RATE 107 ML/MIN (>89); MAGNESIUM 1.5 MG/DL (1.5-2.5); POTASSIUM 3.3 MEQ/L (3.5-5.1); SODIUM (NA) 141 MEQ/L (136-145)
[2017-08-08 09:18] LABS: ALT (GPT) 37 U/L (10-53); AST (GOT) 32 U/L (15-37)
[2017-08-08 09:27] LABS: ALKALINE PHOSPHATASE 68 U/L (45-117); FREE T4 1.28 NG/DL (0.76-1.46); TOTAL BILIRUBIN ADULT 0.5 MG/DL (0.2-1.0)
[2017-08-08] MEDS: SODIUM CHLORIDE 0.9% FLUSH 10 ML FLUSH IV FLUSH SCH ×2 (09:34→20:05)
[2017-08-08] MEDS: NON-FORMULARY DRUG (Mometasone-Formoterol 120 Act Inh (Dulera 120 Act Inh) 2 PUFF) INH SCH ×2 (09:34→20:05)
[2017-08-08] MEDS: FOLIC ACID 1 MG TAB PO SCH (09:35)
[2017-08-08] MEDS: PANTOPRAZOLE SOD 40 MG DELAYED RELEASE TAB PO SCH (09:36)
[2017-08-08] MEDS: GABAPENTIN 300 MG CAP PO SCH ×2 (09:36→20:04)
[2017-08-08] MEDS: guaiFENesin E.R. 600 MG TAB PO SCH ×2 (09:37→20:04)
[2017-08-08] MEDS: LEVOTHYROXINE SODIUM 50 MCG TAB PO SCH (09:37)
[2017-08-08] MEDS: CHOLECALCIFEROL (VIT D3) 1000 UNIT TAB PO SCH (09:38)
[2017-08-08] MEDS: buPROPion HCL 100 MG SUSTAINED RELEASE TAB PO SCH ×2 (09:48→20:04)
[2017-08-08] MEDS: VANCOMYCIN INJ 1,300 MG in SODIUM CHLORID 0.9% 500 ML INJ 500 ML IV SCH ×2 (11:31→21:19)
[2017-08-08] MEDS: MORPHINE SULFATE 4 MG/ML INJ IV PUSH PRN ×3 (13:53→21:19)
--- NOTE | 2017-08-08 15:55 | PD.ID.CON ---
History of Present Illness Service ID Consult Requested By Dr Cardozo Reason for Consult septic arthritis Primary Care Physician No Primary Care Physician Diagnoses: History of Present Illness 57 yo female with h/o rheumatoid arthritis , on Humira weekly and methotrexate presented with swollen painful L elbow x 2-3 weeks. She apparently hit her elbow 4 weeks ago and had some stitiches placed in ER, in 10 days she noted that the elbow was betteing more and more painful and swollen. SHe sought med attention and was prescribed Keflex that initially helped her but later stopped helping SHe presented to the ER with the above complaint was diagnosed with septic L elbow arthritis and MRI with significant joint effusion and tracking abscess deep to brachialis muscle and stranding within brachialis, and a large fluid collection in brachialis muscle Pt underwent I+D of L elbow last night She denies fever, chills and nightsweats She is on Zosyn, vancomycin Pt was seem by orthopedist and taken to OR for I&D Review of Systems Respiratory: COMPLAINS OF: Shortness of breath Cardiovascular: COMPLAINS OF: Dyspnea on Exertion Except as stated in HPI: all other systems reviewed are Neg Past Family Social History Allergies: Coded Allergies: No Known Allergies (Unverified , 08/07/17) Past Medical History Rheumatoid arthritis Anxiety COPD Diverticulitis Fibromyalgia Depression Past Surgical History Left knee surgery x 2 Colon resection 8 years ago Tubal ligation Reported Medications I attest that I reviewed the medication list with the patient on the day of the clinical encounter (08/09/2017) Home medications reported by patient: Zofran (Ondansetron HCl) 4 Mg Tab 4 Mg PO Q12HR PRN Doxepin (Doxepin HCl) 50 Mg Cap 50 Mg PO BID Zinc Gluconate 50 Mg Tab 50 Mg PO DAILY Humira 2-Pack Inj (Adalimumab 2-Pack Inj) 40 Mg/0.8 Ml Syr 40 Mg SQ Q14D Prednisone 20 Mg Tab 20 Mg PO DIRECTED 40 MG twice a day x 3 days, then 20 MG daily x 3 days, then 10 MG daily x 3 days Proair Hfa 8.5 GM Inh (Albuterol Sulfate) 90 Mcg/Act Aer 1 Puff INH Q4H PRN 108 mcg/actuation Dulera 120 Act Inh (Mometasone-Formoterol 120 Act Inh) 200-5 Mcg/Act Inh 2 Puff INH BID Folic Acid 0.8 Mg Tab 1,000 Mcg PO DAILY Levothyroxine (Levothyroxine Sodium) 50 Mcg Tab 50 Mcg PO DAILY Vitamin D-1000 (Cholecalciferol) 1,000 Unit Tab 1,000 Units PO DAILY Methotrexate 2.5 Mg Tab 2.5 Mg PO Q7D Wellbutrin Xl 24 HR (Bupropion HCl) 150 Mg Tab 150 Mg PO DAILY Wellbutrin Xl 24 HR (Bupropion HCl) 300 Mg Tab 300 Mg PO DAILY Naproxen Sodium 220 Mg Tab 300 Mg PO BID PRN Propranolol (Propranolol HCl) 60 Mg Tab 60 Mg PO Q6HR PRN Prozac (Fluoxetine HCl) 40 Mg Cap 120 Mg PO DAILY Prevacid (Lansoprazole) 30 Mg Capdr 30 Mg PO DAILY Gabapentin 600 Mg Tab 600 Mg PO HS Gabapentin 300 Mg Cap 300 Mg PO DAILY Active Ordered Medications Active Medications Bupropion HCl (Wellbutrin Sr 12 Hr) 200 mg BID PO Last administered on 09:48; Start 08/08/17 at 09:00 Bupropion HCl (Wellbutrin Xl 24 Hr) 150 mg DAILY PO; Start 08/08/17 at 09:00; Stop 08/08/17 at 09:00; Status DC Bupropion HCl (Wellbutrin Xl 24 Hr) 300 mg DAILY PO; Start 08/08/17 at 09:00; Stop 08/08/17 at 09:00; Status DC Cholecalciferol (Vitamin D3) 1,000 units DAILY PO Last administered on 09:38; Start 08/08/17 at 09:00 Doxepin HCl (SINEquan) 50 mg BID PO Last administered on 08/07/17 21:51; Start 08/07/17 at 21:00 Fluoxetine HCl (PROzac) 120 mg DAILY PO; Start 08/08/17 at 09:00; Stop 08/08/17 at 17:07; Status DC Fluoxetine HCl (PROzac) 120 mg DAILY PO Last administered on 08/08/17 18:13; Start 08/08/17 at 17:15 Folic Acid (Folate) 1 mg DAILY PO Last administered on 08/08/17 09:35; Start at 09:00 Gabapentin (Neurontin) 300 mg DAILY PO Last administered on 08/08/17 09:36; Start 08/08/17 at 09:00 Gabapentin (Neurontin) 600 mg HS PO Last administered on 08/07/17 21:50; Start 08/07/17 at 21:00 Guaifenesin (Mucinex Er) 600 mg BID PO Last administered on 08/08/17 09:37; Start 08/07/17 at 21:00 Levothyroxine Sodium (Synthroid) 50 mcg DAILY PO Last administered on 08/08/17 09:37; Start 08/08/17 at 09:00 Methotrexate (Rheumatrex) 2.5 mg Q7D PO; Start 08/13/17 at 09:00; Status Future Hold Miscellaneous Information "DRAW VANCOMYCIN TRO... ONCE .XX; Start 08/07/17 at 21 :40; Stop 08/09/17 at 12:00 Miscellaneous Information ALL NURSING DEPARTME... UNSCH PRN .XX; Start at 20:36; Stop 08/08/17 at 20:35 Miscellaneous Information SPECIFIC LAB TO BE ANGELY... ONCE ONCE .XX; Start at 09:45; Stop 08/09/17 at 09:46 Morphine Sulfate (*morphine INJ PERIprocedure ONLY) 8 mg STK-MED ONCE .ROUTE Last administered on 08/07/17 20:38; Start 08/07/17 at 20:38; Stop 08/07/17 at 20:39; Status DC Morphine Sulfate (*morphine INJ PERIprocedure ONLY) 8 mg STK-MED ONCE .ROUTE Last administered on 08/07/17 20:50; Start 08/07/17 at 20:50; Stop 08/07/17 at 20:51; Status DC Morphine Sulfate (*morphine INJ PERIprocedure ONLY) 8 mg STK-MED ONCE .ROUTE Last administered on 08/07/17 21:01; Start 08/07/17 at 21:01; Stop 08/07/17 at 21:02; Status DC Morphine Sulfate (Morphine Inj) 4 mg Q3H PRN IV PUSH Last administered on 16:31; Start 08/08/17 at 13:15 Non-Formulary Medication 2 puff BID INH Last administered on 08/08/17 09:34; Start 08/07/17 at 21:00 Non-Formulary Medication 50 mg DAILY PO; Start 08/08/17 at 09:00; Stop 08/08/17 at 09:00; Status DC Pantoprazole Sodium (Protonix) 40 mg DAILY PO Last administered on 08/08/17 09: 36; Start 08/08/17 at 09:00 Pharmacy Profile Note 0 ml @ 0 mls/hr UNSCH OTHER; Start 08/07/17 at 20:45 Piperacillin Sod/ Tazobactam Sod 50 ml @ 100 mls/hr NOW ONCE IV; Start at 20:15; Stop 08/07/17 at 20:44; Status DC Piperacillin Sod/ Tazobactam Sod 50 ml @ 100 mls/hr Q6H IV Last administered on 08/07/17 19:51; Start 08/07/17 at 20:00; Stop 08/07/17 at 21:24; Status DC Piperacillin Sod/ Tazobactam Sod 50 ml @ 100 mls/hr Q8H IV Last administered on 08/08/17 12:59; Start 08/08/17 at 04:00 Potassium Chloride (KCl) 40 meq ONCE ONCE PO Last administered on 08/08/17 16: 35; Start 08/08/17 at 16:30; Stop 08/08/17 at 16:31; Status DC Senna/Docusate Sodium (Ronit-Colace) 1 tab BID PO; Start 08/07/17 at 21:00 Sodium Chloride (NS Flush) 2 ml BID IV FLUSH Last administered on 08/08/17 09: 34; Start 08/07/17 at 21:00 Vancomycin HCl 1000 mg/Sodium Chloride 250 ml @ 250 mls/hr NOW ONCE IV Last administered on 08/07/17 21:55; Start 08/07/17 at 21:45; Stop 08/07/17 at 22:44 ; Status DC Vancomycin HCl 1300 mg/Sodium Chloride 513 ml @ 250 mls/hr Q12H IV Last administered on 08/08/17 11:31; Start 08/08/17 at 10:00 Family History reviewed Denies any significant family medical history. Social History Patient admits to smoking cigarettes socially few sigarets. Admits to drinking alcohol socially occasionally. Denies any illicit drug use. Physical Exam Vital Signs Vital Signs Date Time Temp Pulse Resp B/P (MAP) Pulse Ox O2 Delivery O2 Flow Rate FiO2 08/08/17 09:12 96 08/08/17 08:00 98.1 80 18 107/73 (84) 95 08/08/17 04:00 96.5 89 16 115/78 (90) 94 08/08/17 00:42 96.2 89 16 122/83 (96) 91 08/07/17 21:30 96.9 94 16 122/75 (91) 91 08/07/17 21:00 97 20 109/67 (81) 92 Nasal Cannula 4 08/07/17 20:45 99 18 107/64 (78) 92 Nasal Cannula 4 08/07/17 20:38 101 18 110/62 (78) 92 Nasal Cannula 4 08/07/17 20:36 98.2 101 16 106/62 (77) 92 Nasal Cannula 4 08/07/17 19:12 08/07/17 16:55 96 21 08/07/17 15:59 97.7 92 16 132/80 (97) 93 Room Air Physical Exam CONSTITUTIONAL/GENERAL: This is an adequately nourished patient, in no apparent distress. TUBES/LINES/DRAINS: SKIN: No jaundice, rashes, or lesions. Skin temperature appropriate. Not diaphoretic. HEAD: Atraumatic. Normocephalic. EYES: Pupils equal and round and reactive. Extraocular motions intact. No scleral icterus. No injection or drainage. Fundi not examined. ENT: Hearing grossly normal. Nose without bleeding or purulent drainage. Oral mucosae without visible erythema, exudates, masses, or lesions. Dentition is poor NECK: Trachea midline. Supple, nontender. No palpable thyroid enlargement or nodularity. CARDIOVASCULAR: Regular rate and rhythm without murmurs, gallops, or rubs. No JVD. Peripheral pulses symmetric. RESPIRATORY/CHEST: Symmetric, unlabored respirations. Clear to auscultation. Breath sounds equal bilaterally. No wheezes, rales, or rhonchi. GASTROINTESTINAL: Abdomen soft, non-tender, nondistended. No hepato-splenomegaly , or palpable masses. No guarding. Bowel sounds present. GENITOURINARY: Without palpable bladder distension. MUSCULOSKELETAL: Extremities without clubbing, cyanosis, or edema. No joint tenderness or effusion noted. No calf tenderness. No mottling or clubbing. POst op dressing in place over LUE REBEKA drain in with serosang drainage fingers free of neurovascular deficits No ascending cellulitis, lymphangitis or ipsilateral lymphadenopathy LYMPHATICS: No palpable cervical axillar or supraclavicular adenopathy. NEUROLOGICAL: Awake and alert. Motor and sensory grossly within normal limits. Follows commands. Cognitively sharp. Moves all extremities. PSYCHIATRIC: No obvious anxiety/depression. no apparent hallucinations or other psychotic thought process. Laboratory Laboratory Tests Test 08/07/17 17:40 08/08/17 07:06 Urine Color YELLOW Urine Turbidity CLEAR Urine pH 6.0 Urine Specific [place] 1.028 Urine Protein 30 Urine Glucose (UA) NEG Urine Ketones 40 Urine Occult Blood NEG Urine Nitrite NEG Urine Bilirubin NEG Urine Urobilinogen LESS THAN 2.0 Urine Leukocyte Esterase NEG Urine RBC 1 Urine WBC 1 Urine Squamous Epithelial Cells 1 Microscopic Urinalysis Comment CULT NOT INDICATED White Blood Count 7.9 Red Blood Count 3.09 Hemoglobin 10.7 Hematocrit 32.5 Mean Corpuscular Volume 105.4 Mean Corpuscular Hemoglobin 34.6 Mean Corpuscular Hemoglobin Concent 32.9 Red Cell Distribution Width 14.5 Platelet Count 326 Mean Platelet Volume 8.2 Neutrophils (%) (Auto) 89.6 Lymphocytes (%) (Auto) 7.9 Monocytes (%) (Auto) 2.3 Eosinophils (%) (Auto) 0.0 Basophils (%) (Auto) 0.2 Neutrophils # (Auto) 7.1 Lymphocytes # (Auto) 0.6 Monocytes # (Auto) 0.2 Eosinophils # (Auto) 0.0 Basophils # (Auto) 0.0 CBC Comment DIFF FINAL Differential Comment Blood Urea Nitrogen 14 Creatinine 0.58 Random Glucose 127 Total Protein 6.2 Albumin 2.5 Calcium Level 8.1 Phosphorus Level 2.9 Magnesium Level 1.5 Alkaline Phosphatase 68 Aspartate Amino Transf (AST/SGOT) 32 Alanine Aminotransferase (ALT/SGPT) 37 Total Bilirubin 0.5 Sodium Level 141 Potassium Level 3.3 Chloride Level 107 Carbon Dioxide Level 24.7 Anion Gap 9 Estimat Glomerular Filtration Rate 107 Free Thyroxine 1.28 Thyroid Stimulating Hormone 3rd Gen 0.493 Date/Time Source Procedure Growth Status 08/07/17 12:25 Blood Peripheral Aerobic Blood Culture - Preliminary NO GROWTH IN 1 DAY Resulted 08/07/17 12:25 Blood Peripheral Anaerobic Blood Culture - Preliminary NO GROWTH IN 1 DAY Resulted 08/07/17 19:48 Wound Elbow Fungal Smear - Final NO FUNGAL ELEMENTS SEEN. Resulted 08/07/17 19:48 Wound Elbow Fungal Culture Pending Resulted Result Diagram: 08/08/17 0706 08/08/17 0706 Imaging Last Impressions Chest X-Ray 08/07/17 1634 Signed Impressions: Service Date/Time: Monday, August 07, 2017 16:38 - CONCLUSION: No acute disease. Naveed Sage MD FACR Upper Extremity Ultrasound 08/07/17 1213 Signed Impressions: Service Date/Time: Monday, August 07, 2017 12:30 - CONCLUSION: Negative for deep venous thrombosis. Naveed Sage MD FACR Elbow X-Ray 08/07/17 0000 Signed Impressions: Service Date/Time: Monday, August 07, 2017 13:12 - CONCLUSION: Joint effusion, no fracture Naveed Sage MD FACR Elbow MRI 08/07/17 0000 Signed Impressions: Service Date/Time: Monday, August 07, 2017 14:11 - CONCLUSION: Presumed inflammatory process mainly involving the brachialis. The joint is suspected to be infected as well. There is no osteomyelitis as yet. Neurovascular bundle is displaced medially there are brachial bifurcation findings have been discussed with Latosha FRANCOIS on today's date. Naveed Sage MD FACR Assessment and Plan Assessment and Plan Septic arthitis L elbow with deep abscess L brachialis muscle - growing gram positive tamiko sp I+D Rec's: cont current abx fu clx will adjust abx per clx anticipate IV abx x approximately 4 weeks Marilyn Fabian MD Aug 08, 2017 15:55
[2017-08-08 16:11] LABS: HEMOGLOBIN A1a 2.1 %; HEMOGLOBIN A1b 1.6 %; HEMOGLOBIN LA1C 2.3 %; HEMOGLOBIN P3 3.7 %
--- NOTE | 2017-08-08 16:12 | HHI.PR ---
Addendum to Inpatient Note Additional Information Pt seen today around 1600 full note to follow Marilyn Fabian MD Aug 08, 2017 16:12
--- NOTE | 2017-08-08 16:23 | HHI.PR ---
Subjective Remarks Follow-up septic arthritis. Complaining of left elbow pain discussed with PT and RN Objective Vitals Vital Signs Date Time Temp Pulse Resp B/P (MAP) Pulse Ox O2 Delivery O2 Flow Rate FiO2 08/08/17 09:12 96 08/08/17 08:00 98.1 80 18 107/73 (84) 95 08/08/17 04:00 96.5 89 16 115/78 (90) 94 08/08/17 00:42 96.2 89 16 122/83 (96) 91 08/07/17 21:30 96.9 94 16 122/75 (91) 91 08/07/17 21:00 97 20 109/67 (81) 92 Nasal Cannula 4 08/07/17 20:45 99 18 107/64 (78) 92 Nasal Cannula 4 08/07/17 20:38 101 18 110/62 (78) 92 Nasal Cannula 4 08/07/17 20:36 98.2 101 16 106/62 (77) 92 Nasal Cannula 4 08/07/17 19:12 08/07/17 16:55 96 21 I/O 08/07/17 08/07/17 08/07/17 08/08/17 08/08/17 08/08/17 07:00 15:00 23:00 07:00 15:00 23:00 Intake Total 1000 ml 900 ml 1730 ml 563 ml Output Total 10 ml 630 ml Balance 1000 ml 890 ml 1100 ml 563 ml Intake Oral 480 ml IV Total 1000 ml 100 ml 1250 ml 563 ml Other 800 ml Output Urine Total 600 ml Drainage Total 30 ml Estimated Blood Loss 10 ml Result Diagram: 08/08/17 0706 08/08/17 0706 Imaging Last Impressions Chest X-Ray 08/07/17 1634 Signed Impressions: Service Date/Time: Monday, August 07, 2017 16:38 - CONCLUSION: No acute disease. Naveed Saeg MD FACR Upper Extremity Ultrasound 08/07/17 1213 Signed Impressions: Service Date/Time: Monday, August 07, 2017 12:30 - CONCLUSION: Negative for deep venous thrombosis. Naveed Sage MD FACR Elbow X-Ray 08/07/17 0000 Signed Impressions: Service Date/Time: Monday, August 07, 2017 13:12 - CONCLUSION: Joint effusion, no fracture Naveed Sage MD FACR Elbow MRI 08/07/17 0000 Signed Impressions: Service Date/Time: Monday, August 07, 2017 14:11 - CONCLUSION: Presumed inflammatory process mainly involving the brachialis. The joint is suspected to be infected as well. There is no osteomyelitis as yet. Neurovascular bundle is displaced medially there are brachial bifurcation findings have been discussed with Latosha FRANCOIS on today's date. Naveed Sage MD FACR Objective Remarks GENERAL: Well-developed, well-nourished in no distress NECK: Trachea midline. No JVD. CARDIOVASCULAR: Regular rate and rhythm. RESPIRATORY: No accessory muscle use. Clear to auscultation. Breath sounds equal bilaterally. GASTROINTESTINAL: Abdomen soft, non-tender, nondistended. MUSCULOSKELETAL: Extremities without clubbing, cyanosis, or edema. No obvious deformities. Left upper extremity with dry dressing NEUROLOGICAL: Awake and alert. No obvious cranial nerve deficits. Motor grossly within normal limits. Five out of 5 muscle strength in the arms and legs. Normal speech. Procedures Irrigation and debridement of left elbow A/P Problem List: (1) Joint infection ICD Code: M00.9 - Pyogenic arthritis, unspecified Status: Acute Assessment and Plan Ms. Hollingsworth is a 57-year-old female patient with a known medical history of COPD , rheumatoid arthritis and fibromyalgia who presented to the ED with complaints of worsening left elbow swelling and pain. Septic arthritis left elbow status post irrigation and debridement. Continue IV vancomycin and Zosyn, pain management with oxycodone and IV morphine and wound care. Follow-up infectious disease consultation. Chronic obstructive pulmonary disease: Continue home Albuterol inhaler PRN. Supplemental O2 PRN to keep sats >92%. CXR reviewed showing no acute disease. Rheumatoid arthritis: Continue home Methotrexate. Hypothyroidism: Continue home Synthroid. Fibromyalgia: Continue home gabapentin. Depression: Continue home Doxepin and Bupropion. Hypokalemia: Persistent will replace with 40 mEq by mouth 1 Macrocytic anemia. Obtain B-12 and folate GI Prophylaxis: Protonix. DVT Prophylaxis: SCDs. Early ambulation Discharge Planning Not ready for discharge Armin Syed MD Aug 08, 2017 16:23
[2017-08-08] MEDS ORDERED: POTASSIUM CHLORIDE 20 MEQ CONTROLLED RELEASE TAB PO ONE (16:30)
[2017-08-08] MEDS: FLUoxetine HCL 20 MG CAP PO SCH (18:13)
[2017-08-09] VITALS: BP 114/70; PULSE 76; RESP 17; TEMP 97.4; O2SAT 92
[2017-08-09] MEDS: MORPHINE SULFATE 4 MG/ML INJ IV PUSH PRN ×4 (00:18→20:22)
[2017-08-09 04:00] VITALS: BP 102/55; PULSE 103; RESP 17; TEMP 96.8; O2SAT 92
[2017-08-09] MEDS: PIPERACIL-TAZO 2.25 GM PREMIX 50 ML IV SCH (04:21)
[2017-08-09] MEDS: oxyCODONE/ACETAMINOPHEN 10 MG/325 MG TAB PO PRN ×4 (04:22→23:43)
--- NOTE | 2017-08-09 07:58 | PD.ORT.PN ---
Subjective Post Op Day #: 2 Subjective Remarks Patient reports pain relatively well controlled today. She does feel like her motion is continuing to slowly improve. Denies CP, SOB or abdominal pain. Denies fevers or chills Objective Vitals Vital Signs Date Time Temp Pulse Resp B/P (MAP) Pulse Ox O2 Delivery O2 Flow Rate FiO2 08/09/17 04:00 96.8 103 17 102/55 (71) 92 08/09/17 00:00 97.4 76 17 114/70 (85) 92 08/08/17 21:30 18 08/08/17 21:00 18 08/08/17 20:00 97.0 105 17 117/72 (87) 90 08/08/17 16:00 97.2 91 16 130/80 (97) 93 08/08/17 12:00 97.9 94 16 135/81 (99) 92 08/08/17 09:12 96 08/08/17 08:00 98.1 80 18 107/73 (84) 95 I/O 08/08/17 08/08/17 08/08/17 08/09/17 08/09/17 08/09/17 07:00 15:00 23:00 07:00 15:00 23:00 Intake Total 1730 ml 563 ml 620 ml 290 ml Output Total 630 ml 820 ml 15 ml Balance 1100 ml -257 ml 620 ml 275 ml Intake Oral 480 ml 620 ml 240 ml IV Total 1250 ml 563 ml 50 ml Output Urine Total 600 ml 800 ml Drainage Total 30 ml 20 ml 15 ml # Voids 3 2 # Bowel Movements 1 0 Result Diagram: 08/08/17 0706 08/08/17 0706 Imaging Last 24 hours Impressions Chest X-Ray 08/07/17 1634 Signed Impressions: Service Date/Time: Monday, August 07, 2017 16:38 - CONCLUSION: No acute disease. Naveed Sage MD FACR Upper Extremity Ultrasound 08/07/17 1213 Signed Impressions: Service Date/Time: Monday, August 07, 2017 12:30 - CONCLUSION: Negative for deep venous thrombosis. Naveed Sage MD FACR Objective Remarks Awake, alert, NAD LUE - removed dressing and pulled REBEKA drain. ROM ~10-95 degrees without significant discomfort. NVI distally. Incision without any significant erythema. Edema appears to be improving, although slowly Assessment & Plan Problem List: (1) Joint infection ICD Codes: M00.9 - Pyogenic arthritis, unspecified Status: Acute Assessment and Plan Left elbow septic arthritis with deep abscess, POD#2 -WBAT LUE -Continue OT to work on gentle elbow ROM as tolerated to avoid stiffness -Await cultures and gram stain from intraop. Currently growing gram + tamiko -Continue IV abx. ID consult and recommendations appreciated. -Would ask primary team to hold methotrexate and humira while treating active infection. Naproxen can be given (per patient controls RA, when unable to take other meds) -Ok for leave dressing in place until follow-up. -Ok for discharge from orthopedic standpoint once home antibiotics are determined and arranged. Should follow-up 10 days after discharge. Ethel Ferro MD Aug 09, 2017 07:58
[2017-08-09 08:00] VITALS: BP 116/67; PULSE 103; RESP 16; TEMP 97.4; O2SAT 92
[2017-08-09] MEDS: FLUoxetine HCL 20 MG CAP PO SCH (08:48)
[2017-08-09] MEDS: GABAPENTIN 300 MG CAP PO SCH ×2 (08:48→20:20)
[2017-08-09] MEDS: NON-FORMULARY DRUG (Mometasone-Formoterol 120 Act Inh (Dulera 120 Act Inh) 2 PUFF) INH SCH ×2 (08:48→20:21)
[2017-08-09] MEDS: FOLIC ACID 1 MG TAB PO SCH (08:49)
[2017-08-09] MEDS: PANTOPRAZOLE SOD 40 MG DELAYED RELEASE TAB PO SCH (08:49)
[2017-08-09] MEDS: buPROPion HCL 100 MG SUSTAINED RELEASE TAB PO SCH ×2 (08:49→20:20)
[2017-08-09] MEDS: guaiFENesin E.R. 600 MG TAB PO SCH ×2 (08:50→20:21)
[2017-08-09] MEDS: LEVOTHYROXINE SODIUM 50 MCG TAB PO SCH (08:50)
[2017-08-09] MEDS: CHOLECALCIFEROL (VIT D3) 1000 UNIT TAB PO SCH (08:50)
[2017-08-09] MEDS: DOXEPIN HCL 50 MG CAP PO SCH ×2 (08:50→20:20)
[2017-08-09] MEDS: DOCUSATE SODIUM 50 MG/SENNA 8.6 MG TAB PO SCH ×2 (08:50→20:21)
[2017-08-09] MEDS: SODIUM CHLORIDE 0.9% FLUSH 10 ML FLUSH IV FLUSH SCH ×2 (08:51→20:19)
[2017-08-09] MEDS ORDERED: PHARMACY ORDERED LAB ONE (09:45)
--- NOTE | 2017-08-09 10:12 | HHI.FF ---
Face to Face Verification Diagnosis: (1) Joint infection Occupational Therapy Order: Evaluate and Treat, Improve ADL, Gross motor coordination, Fine motor coordination Home Health Nursing Order: Medical education Signs/symptoms of disease process Medication education-adverse effect Wound care and dressing changes Nursing assessment with vital signs IV medication administration I have seen patient Divya Hollingsworth on 08/09/17. My clinical findings support the need for the requested home health care services because: Ltd mobility - disease progression Deconditioned w/ increased weakness I certify that my clinical findings support that this patient is homebound because: Post-op weakness Armin Syed MD Aug 09, 2017 10:12
--- NOTE | 2017-08-09 10:12 | HHI.DCPOC ---
Discharge Care Plan Diagnosis: (1) Joint infection Your Health Problems Are: Difficulty with ADL Exercise Tolerance Goals to Promote Your Health * To prevent worsening of your condition and complications * To maintain your health at the optimal level Directions to Meet Your Goals Take your medications as prescribed Follow your dietary instruction Follow activity as directed Keep your appointments as scheduled Take your immunizations and boosters as scheduled If your symptoms worsen call your PCP, if no PCP go to Urgent Care Center or Emergency Room Smoking is Dangerous to Your Health. Avoid second hand smoke Call the 24-hour hour crisis hotline for domestic abuse at Armin Syed MD Aug 09, 2017 10:12
[2017-08-09] MEDS ORDERED: OXYC1TAB36 PO ×2 (10:18→18:13)
[2017-08-09] MEDS: VANCOMYCIN INJ 1,300 MG in SODIUM CHLORID 0.9% 500 ML INJ 500 ML IV SCH (10:42)
--- NOTE | 2017-08-09 11:59 | HHI.PR ---
Subjective Remarks Follow-up left elbow septic arthritis. Improving pain and range of motion. Discussed with RN and case management Objective Vitals Vital Signs Date Time Temp Pulse Resp B/P (MAP) Pulse Ox O2 Delivery O2 Flow Rate FiO2 08/09/17 08:00 97.4 103 16 116/67 (83) 92 08/09/17 04:00 96.8 103 17 102/55 (71) 92 08/09/17 00:00 97.4 76 17 114/70 (85) 92 08/08/17 21:30 18 08/08/17 21:00 18 08/08/17 20:00 97.0 105 17 117/72 (87) 90 08/08/17 16:00 97.2 91 16 130/80 (97) 93 08/08/17 12:00 97.9 94 16 135/81 (99) 92 I/O 08/08/17 08/08/17 08/08/17 08/09/17 08/09/17 08/09/17 07:00 15:00 23:00 07:00 15:00 23:00 Intake Total 1730 ml 563 ml 620 ml 290 ml Output Total 630 ml 820 ml 15 ml Balance 1100 ml -257 ml 620 ml 275 ml Intake Oral 480 ml 620 ml 240 ml IV Total 1250 ml 563 ml 50 ml Output Urine Total 600 ml 800 ml Drainage Total 30 ml 20 ml 15 ml # Voids 3 2 # Bowel Movements 1 0 Result Diagram: 08/08/1770508/08/17 07 Objective Remarks GENERAL: Well-developed, well-nourished in no distress NECK: Trachea midline. No JVD. CARDIOVASCULAR: Regular rate and rhythm. RESPIRATORY: No accessory muscle use. Clear to auscultation. Breath sounds equal bilaterally. GASTROINTESTINAL: Abdomen soft, non-tender, nondistended. MUSCULOSKELETAL: Extremities without clubbing, cyanosis, or edema. No obvious deformities. Left upper extremity with dry dressing NEUROLOGICAL: Awake and alert. No obvious cranial nerve deficits. Motor grossly within normal limits. Five out of 5 muscle strength in the arms and legs. Normal speech. Procedures Irrigation and debridement of left elbow A/P Problem List: (1) Joint infection ICD Code: M00.9 - Pyogenic arthritis, unspecified Status: Acute Assessment and Plan Ms. Hollingsworth is a 57-year-old female patient with a known medical history of COPD , rheumatoid arthritis and fibromyalgia who presented to the ED with complaints of worsening left elbow swelling and pain. Septic arthritis left elbow status post irrigation and debridement. Continue IV vancomycin and Zosyn, pain management with oxycodone and IV morphine and wound care. Patient has been cleared for discharge by orthopedic surgery. Awaiting recommendations from ID if patient can be discharged with Op IV antibiotics via PICC awaiting final culture results. Will consult case management for home health care versus outpatient IV antibiotic infusion Chronic obstructive pulmonary disease: Continue home Albuterol inhaler PRN. Supplemental O2 PRN to keep sats >92%. CXR reviewed showing no acute disease. Rheumatoid arthritis: Hold Methotrexate, prednisone and Humira while having active infection. Hypothyroidism: Continue home Synthroid. Fibromyalgia: Continue home gabapentin. Depression: Continue home Doxepin and Bupropion. Hypokalemia: Status post replacement Macrocytic anemia. B-12 and folate not low GI Prophylaxis: Protonix. DVT Prophylaxis: SCDs. Early ambulation Discharge Planning Discharge when cleared by ID Armin Syed MD Aug 09, 2017 11:59
[2017-08-09 12:00] VITALS: BP 125/79; PULSE 108; RESP 16; TEMP 97.4; O2SAT 93
--- NOTE | 2017-08-09 13:08 | HHI.IDPN ---
Subjective Subjective Remarks doing OK culture fromL elbow + for MRSA pt co LUE pain afebrile REBEKA drain was removed On NC O2 Current meds: Current Medications Medications (Trade) Dose Ordered Sig/Leon Route Start Time Stop Time Status Last Admin (NS Flush) 2 ml UNSCH PRN IV FLUSH 08/07/17 12:15 (Catapres) 0.1 mg Q4H PRN PO 08/07/17 16:45 (NS Flush) 2 ml UNSCH PRN IV FLUSH 08/07/17 16:45 (NS Flush) 2 ml BID IV FLUSH 08/07/17 21:00 08/09/17 08:51 (Tylenol) 650 mg Q4H PRN PO 08/07/17 16:45 (Zofran Inj) 4 mg Q6H PRN IVP 08/07/17 16:45 (Compazine Supp) 25 mg Q12H PRN RECTAL 08/07/17 16:45 (Ambien) 5 mg HS PRN PO 08/07/17 16:45 (Tylenol) 650 mg Q6H PRN PO 08/07/17 16:45 (Percocet 5-325 Mg) 1 tab Q6H PRN PO 08/07/17 16:45 (Percocet 10-325 Mg) 1 tab Q6H PRN PO 08/07/17 16:45 08/09/17 10:42 (Morphine Inj) 2 mg Q3H PRN IV PUSH 08/07/17 16:45 (Morphine Inj) 4 mg Q3H PRN IV PUSH 08/07/17 16:45 (Narcan Inj) 0.4 mg UNSCH PRN IV PUSH 08/07/17 16:45 (Ronit-Colace) 1 tab BID PO 08/07/17 21:00 08/09/17 08:50 (Milk Of Magnesia Liq) 30 ml Q12H PRN PO 08/07/17 16:45 (Senokot) 17.2 mg Q12H PRN PO 08/07/17 16:45 (Dulcolax Supp) 10 mg DAILY PRN RECTAL 08/07/17 16:45 (Lactulose Liq) 30 ml DAILY PRN PO 08/07/17 16:45 (Proair Hfa Inh) 1 puff Q4H PRN INH 08/07/17 16:45 (Vitamin D3) 1,000 units DAILY PO 08/08/17 09:00 08/09/17 08:50 (SINEquan) 50 mg BID PO 08/07/17 21:00 08/08/17 20:04 (Folate) 1 mg DAILY PO 08/08/17 09:00 08/09/17 08:49 (Neurontin) 300 mg DAILY PO 08/08/17 09:00 08/09/17 08:48 (Neurontin) 600 mg HS PO 08/07/17 21:00 08/08/17 20:04 (Synthroid) 50 mcg DAILY PO 08/08/17 09:00 08/09/17 08:50 (Rheumatrex) 2.5 mg Q7D PO 08/13/17 09:00 Future Hold (Protonix) 40 mg DAILY PO 08/08/17 09:00 08/09/17 08:49 Non-Formulary Medication 2 puff BID INH 08/07/17 21:00 08/09/17 08:48 (Zofran Odt) 4 mg Q12HR PRN PO 08/07/17 16:45 (Inderal) 60 mg Q6HR PRN PO 08/07/17 16:45 (Mucinex Er) 600 mg BID PO 08/07/17 21:00 08/09/17 08:50 (Duoneb Neb) 1 ampule Q4HR NEB PRN NEB 08/07/17 19:00 Pharmacy Profile Note 0 ml @ 0 mls/hr UNSCH OTHER 08/07/17 20:45 Piperacillin Sod/ Tazobactam Sod 50 ml @ 100 mls/hr Q8H IV 08/08/17 04:00 08/09/17 04:21 (Wellbutrin Sr 12 Hr) 200 mg BID PO 08/08/17 09:00 08/09/17 08:49 (Morphine Inj) 4 mg Q3H PRN IV PUSH 08/08/17 13:15 08/09/17 06:44 (PROzac) 120 mg DAILY PO 08/08/17 17:15 08/09/17 08:48 Vancomycin HCl 1500 mg/Sodium Chloride 515 ml @ 257.5 mls/ hr Q12H IV 08/09/17 21:00 Miscellaneous Information SPECIFIC LAB TO BE ANGELY... ONCE ONCE .XX 08/10/17 20:45 08/10/17 20:46 Antibiotics zosyn vancomycin Allergies: Coded Allergies: No Known Allergies (Unverified , 08/07/17) Objective . Vital Signs Date Time Temp Pulse Resp B/P (MAP) Pulse Ox O2 Delivery O2 Flow Rate FiO2 08/09/17 12:22 93 Nasal Cannula 3.00 08/09/17 08:00 97.4 103 16 116/67 (83) 92 08/09/17 04:00 96.8 103 17 102/55 (71) 92 08/09/17 00:00 97.4 76 17 114/70 (85) 92 08/08/17 21:30 18 08/08/17 21:00 18 08/08/17 20:00 97.0 105 17 117/72 (87) 90 08/08/17 16:00 97.2 91 16 130/80 (97) 93 . Laboratory Tests Test 08/08/17 07:06 White Blood Count 7.9 TH/MM3 Red Blood Count 3.09 MIL/MM3 Hemoglobin 10.7 GM/DL Hematocrit 32.5 % Mean Corpuscular Volume 105.4 FL Mean Corpuscular Hemoglobin 34.6 PG Mean Corpuscular Hemoglobin Concent 32.9 % Red Cell Distribution Width 14.5 % Platelet Count 326 TH/MM3 Mean Platelet Volume 8.2 FL Neutrophils (%) (Auto) 89.6 % Lymphocytes (%) (Auto) 7.9 % Monocytes (%) (Auto) 2.3 % Eosinophils (%) (Auto) 0.0 % Basophils (%) (Auto) 0.2 % Neutrophils # (Auto) 7.1 TH/MM3 Lymphocytes # (Auto) 0.6 TH/MM3 Monocytes # (Auto) 0.2 TH/MM3 Eosinophils # (Auto) 0.0 TH/MM3 Basophils # (Auto) 0.0 TH/MM3 CBC Comment DIFF FINAL Differential Comment Laboratory Tests Test 08/08/17 07:06 Blood Urea Nitrogen 14 MG/DL Creatinine 0.58 MG/DL Random Glucose 127 MG/DL Total Protein 6.2 GM/DL Albumin 2.5 GM/DL Calcium Level 8.1 MG/DL Phosphorus Level 2.9 MG/DL Magnesium Level 1.5 MG/DL Alkaline Phosphatase 68 U/L Aspartate Amino Transf (AST/SGOT) 32 U/L Alanine Aminotransferase (ALT/SGPT) 37 U/L Total Bilirubin 0.5 MG/DL Sodium Level 141 MEQ/L Potassium Level 3.3 MEQ/L Chloride Level 107 MEQ/L Carbon Dioxide Level 24.7 MEQ/L Anion Gap 9 MEQ/L Estimat Glomerular Filtration Rate 107 ML/MIN Hemoglobin A1c 5.0 % Vitamin B12 Level 1218 PG/ML Folate 5.8 NG/ML Free Thyroxine 1.28 NG/DL Thyroid Stimulating Hormone 3rd Gen 0.493 uIU/ML Microbiology Date/Time Source Procedure Growth Status 08/07/17 12:25 Blood Peripheral Aerobic Blood Culture - Preliminary NO GROWTH IN 2 DAYS Resulted 08/07/17 12:25 Blood Peripheral Anaerobic Blood Culture - Preliminary NO GROWTH IN 2 DAYS Resulted 08/07/17 12:20 Blood Peripheral Aerobic Blood Culture - Preliminary NO GROWTH IN 2 DAYS Resulted 08/07/17 12:20 Blood Peripheral Anaerobic Blood Culture - Preliminary NO GROWTH IN 2 DAYS Resulted 08/07/17 19:48 Wound Elbow Fungal Smear - Final NO FUNGAL ELEMENTS SEEN. Resulted 08/07/17 19:48 Wound Elbow Fungal Culture Pending Resulted 08/07/17 19:48 Wound Elbow Acid Fast Stain - Final NO ACID FAST BACILLI SEEN Resulted 08/07/17 19:48 Wound Elbow Mycobacterial Culture Pending Resulted 08/07/17 19:48 Wound Elbow Gram Stain - Final Resulted 08/07/17 19:48 Wound Culture - Preliminary S. Aureus Mrsa Resulted 08/07/17 19:48 Wound Elbow Fungal Smear - Final NO FUNGAL ELEMENTS SEEN. Resulted 08/07/17 19:48 Wound Elbow Fungal Culture Pending Resulted 08/07/17 19:48 Wound Elbow Acid Fast Stain - Final NO ACID FAST BACILLI SEEN Resulted 08/07/17 19:48 Wound Elbow Mycobacterial Culture Pending Resulted 08/07/17 19:48 Wound Elbow Gram Stain - Final Resulted 08/07/17 19:48 Wound Culture - Preliminary S. Aureus Mrsa Resulted Imaging Last Impressions Chest X-Ray 08/07/17 1634 Signed Impressions: Service Date/Time: Monday, August 07, 2017 16:38 - CONCLUSION: No acute disease. Naveed Sage MD FACR Upper Extremity Ultrasound 08/07/17 1213 Signed Impressions: Service Date/Time: Monday, August 07, 2017 12:30 - CONCLUSION: Negative for deep venous thrombosis. Naveed Sage MD FACR Elbow X-Ray 08/07/17 0000 Signed Impressions: Service Date/Time: Monday, August 07, 2017 13:12 - CONCLUSION: Joint effusion, no fracture Naveed Sage MD FACR Elbow MRI 08/07/17 0000 Signed Impressions: Service Date/Time: Monday, August 07, 2017 14:11 - CONCLUSION: Presumed inflammatory process mainly involving the brachialis. The joint is suspected to be infected as well. There is no osteomyelitis as yet. Neurovascular bundle is displaced medially there are brachial bifurcation findings have been discussed with Latosha FRANCOIS on today's date. Naveed Sage MD FACR Physical Exam CONSTITUTIONAL/GENERAL: This is an adequately nourished patient, in no apparent distress. TUBES/LINES/DRAINS: SKIN: No jaundice, rashes, or lesions. CARDIOVASCULAR: Regular rate and rhythm without murmurs, gallops, or rubs. RESPIRATORY/CHEST: Symmetric, unlabored respirations. Clear to auscultation. GASTROINTESTINAL: Abdomen soft, non-tender, nondistended. MUSCULOSKELETAL: Extremities without clubbing, cyanosis, or edema. No joint tenderness or effusion noted. No calf tenderness. No mottling or clubbing. POst op dressing in place fingers free of neurovascular deficits No ascending cellulitis, lymphangitis or ipsilateral lymphadenopathy NEUROLOGICAL: Awake and alert.Non focal PSYCHIATRIC: calm and cooperative Assessment & Plan Remarks Assessment and Plan Septic arthitis L elbow with deep abscess L brachialis muscle - growing MRSA sp I+D POD #1 Rec's: dc zosyn cont vancomycin x 4 weeks fu clx untill final OPAT forms filled out PICC dw Marilyn Sainz MD Aug 09, 2017 13:08
--- NOTE | 2017-08-09 13:13 | HHI.FF ---
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 [] May leave port accessed during therapy. [] May leave peripheral site accessed for duration of therapy. [x] If patient has SOB or respiratory distress, check oxygen saturation. If less than 90% or clinical signs of respiratory distress, administer oxygen at 2 L/min. via nasal cannula and notify physician. [x] Anaphylaxis/Reaction orders: * Stop infusion. * Keep IV line open with saline flush. * Notify physician. * Monitor vital signs every 15 minutes until symptoms resolve. * Check Oxygen saturation; Oxygen at 2 L/min. via nasal cannula if less than 90% or clinical signs of respiratory distress. * Administer diphenhydramine (Benadryl) 25 mg IV STAT, (unless patient has received as pre-med). May repeat once, if necessary. * Solu-Cortef 250 mg IVP over 30-60 seconds, use 100 mg vials for each dissolution. * Epinephrine (1mg/1 ml) 0.3 mg subcutaneously or IVP now with any signs of respiratory distress. * Check with physician for new additional pre-med orders if patient is re- challenged or re-treated. [x] May remove PICC line when treatment complete, after confirming with Physician. [x] If the patient is admitted to the hospital, the ED, or transferred via [facility] , complete transfer form including medication reconciliation order sheet. Laboratory Tests Weekly Labs: CBC w/diff, Creatinine, CRP, SED Rate, Vancomycin Trough Marilyn Fabian MD Aug 09, 2017 13:13
[2017-08-09] MEDS ORDERED: SOLU250I IV PUSH (13:14)
[2017-08-09] MEDS ORDERED: VANC10IN IV (13:14)
[2017-08-09] MEDS ORDERED: EPIN1INJ21 SQ (13:14)
[2017-08-09] MEDS ORDERED: EPIN1INJ21 IV PUSH (13:14)
[2017-08-09 16:00] VITALS: BP 134/81; PULSE 115; RESP 18; TEMP 98.8; O2SAT 92
[2017-08-09 20:00] VITALS: BP 143/69; PULSE 110; PULSE 113; RESP 17; TEMP 99.4; O2SAT 92
[2017-08-09] MEDS ORDERED: SODIUM CHLORIDE 0.9% FLUSH 10 ML FLUSH IV FLUSH PRN (20:00)
[2017-08-09] MEDS: VANCOMYCIN INJ 1,500 MG in SODIUM CHLORID 0.9% 500 ML INJ 500 ML IV SCH (20:19)
--- NOTE | 2017-08-09 20:58 | RADRPT ---
EXAM DATE/TIME: 08/09/2017 19:51 [facility] COMPARISON: CHEST SINGLE AP, August 07, 2017, 16:38. INDICATIONS : PICC line placement MEDICAL HISTORY : None. SURGICAL HISTORY : Cholecystectomy. Appendectomy. PICC line ENCOUNTER: Subsequent ACUITY: 3 days PAIN SCORE: 10/10 LOCATION: Bilateral chest FINDINGS: There is increasing consolidation of the right lung, fairly diffuse currently but especially laterall y in the right midlung. Left lung remains reasonably clear. No pleural effusion seen. No pneumothorax . New right arm PICC line seen. Tip is at the atriocaval junction. CONCLUSION: Worsening right pneumonia. Right arm PICC has its tip at the atriocaval junction. No evidence of an a cute complication. Cleve Dior MD on August 09, 2017 at 20:55 Board Certified Radiologist. This report was verified electronically.
[2017-08-10] VITALS (9 sets, daily range): BP systolic 133–181; BP diastolic 64–81; PULSE 112–117; RESP 18–26; TEMP 97.6–98.9; O2SAT 88–92
[2017-08-10] MEDS: oxyCODONE/ACETAMINOPHEN 10 MG/325 MG TAB PO PRN (06:35)
[2017-08-10] MEDS: DOXEPIN HCL 50 MG CAP PO SCH ×2 (09:00→21:04)
[2017-08-10] MEDS: NON-FORMULARY DRUG (Mometasone-Formoterol 120 Act Inh (Dulera 120 Act Inh) 2 PUFF) INH SCH ×2 (09:00→21:00)
[2017-08-10] MEDS: VANCOMYCIN INJ 1,500 MG in SODIUM CHLORID 0.9% 500 ML INJ 500 ML IV SCH ×2 (09:36→21:02)
[2017-08-10] MEDS: guaiFENesin E.R. 600 MG TAB PO SCH ×2 (09:37→21:05)
[2017-08-10] MEDS: GABAPENTIN 300 MG CAP PO SCH ×2 (09:37→21:04)
[2017-08-10] MEDS: FLUoxetine HCL 20 MG CAP PO SCH (09:37)
[2017-08-10] MEDS: buPROPion HCL 100 MG SUSTAINED RELEASE TAB PO SCH ×2 (09:38→21:04)
[2017-08-10] MEDS: FOLIC ACID 1 MG TAB PO SCH (09:38)
[2017-08-10] MEDS: CHOLECALCIFEROL (VIT D3) 1000 UNIT TAB PO SCH (09:38)
[2017-08-10] MEDS: PANTOPRAZOLE SOD 40 MG DELAYED RELEASE TAB PO SCH (09:38)
[2017-08-10] MEDS: DOCUSATE SODIUM 50 MG/SENNA 8.6 MG TAB PO SCH ×2 (09:38→21:04)
[2017-08-10] MEDS: LEVOTHYROXINE SODIUM 50 MCG TAB PO SCH (09:39)
[2017-08-10] MEDS: SODIUM CHLORIDE 0.9% FLUSH 10 ML FLUSH IV FLUSH SCH ×4 (09:40→21:00)
--- NOTE | 2017-08-10 09:59 | HHI.FF ---
Face to Face Verification Diagnosis: (1) Joint infection Home Health Nursing Order: Medical education Wound care and dressing changes IV medication administration (Please educate and train pt to administer IV antibiotic) I have seen patient Divya Hollingsworth on 08/10/17. My clinical findings support the need for the requested home health care services because: Deconditioned w/ increased weakness Limited ability to care for self I certify that my clinical findings support that this patient is homebound because: Need for psychosocial assistance Armin Syed MD Aug 10, 2017 09:59
--- NOTE | 2017-08-10 11:09 | HHI.PR ---
Subjective Remarks Follow-up septic arthritis. Improving elbow pain. Noted to be tachycardic. Complains of dyspnea on exertion. She is also hypoxic history of COPD on home oxygen as needed. Repeat chest x-ray showed right sided pneumonia. Discussed with ID, obtain CT considering patient has been on antibiotics Objective Vitals Vital Signs Date Time Temp Pulse Resp B/P (MAP) Pulse Ox O2 Delivery O2 Flow Rate FiO2 08/10/17 08:05 114 08/10/17 08:00 97.6 115 24 135/66 (89) 91 08/10/17 04:00 98.0 114 18 133/64 (87) 91 08/10/17 00:00 98.0 113 20 174/74 (107) 91 08/09/17 20:00 99.4 113 17 143/69 (93) 92 08/09/17 20:00 110 08/09/17 19:45 Nasal Cannula 3.00 08/09/17 16:00 98.8 115 18 134/81 (98) 92 08/09/17 12:22 93 Nasal Cannula 3.00 08/09/17 12:00 97.4 108 16 125/79 (94) 93 I/O 08/09/17 08/09/17 08/09/17 08/10/17 08/10/17 08/10/17 07:00 15:00 23:00 07:00 15:00 23:00 Intake Total 290 ml 500 ml 1195 ml Output Total 15 ml 1450 ml Balance 275 ml 500 ml 1195 ml -1450 ml Intake Oral 240 ml 620 ml IV Total 50 ml 500 ml 575 ml Output Urine Total 1450 ml Drainage Total 15 ml # Voids 2 3 # Bowel Movements 0 Result Diagram: 08/08/17 0706 08/10/17 0635 Objective Remarks GENERAL: Well-developed, well-nourished in no distress on nasal cannula NECK: Trachea midline. No JVD. CARDIOVASCULAR: Regular rate and rhythm. RESPIRATORY: No accessory muscle use. Expiratory wheezes noted. Breath sounds equal bilaterally. GASTROINTESTINAL: Abdomen soft, non-tender, nondistended. MUSCULOSKELETAL: Extremities without clubbing, cyanosis, or edema. No obvious deformities. Left upper extremity with dry dressing NEUROLOGICAL: Awake and alert. No obvious cranial nerve deficits. Motor grossly within normal limits. Five out of 5 muscle strength in the arms and legs. Normal speech. Procedures Irrigation and debridement of left elbow A/P Problem List: (1) Joint infection ICD Code: M00.9 - Pyogenic arthritis, unspecified Status: Acute Assessment and Plan Ms. Hollingsworth is a 57-year-old female patient with a known medical history of COPD , rheumatoid arthritis and fibromyalgia who presented to the ED with complaints of worsening left elbow swelling and pain. Septic arthritis left elbow status post irrigation and debridement. Culture with MRSA Continue IV vancomycin and discontinue Zosyn, pain management with oxycodone and IV morphine and wound care. Patient has been cleared for discharge by orthopedic surgery and infectious disease. Case management to assist with Op IV antibiotics via PICC Chronic obstructive pulmonary disease exacerbation with hospital-acquired pneumonia: She meets criteria for sepsis. Stat lactic acid, IV Cipro and continue IV vancomycin. Supplemental O2 PRN to keep sats >92%. Obtain chest CT Hypoxia secondary to COPD exacerbation and pneumonia. Oxygen to keep saturation at least 92%. Start nebulization and IV steroids Rheumatoid arthritis: Hold Methotrexate, prednisone and Humira while having active infection. Hypothyroidism: Continue home Synthroid. Fibromyalgia: Continue home gabapentin. Depression: Continue home Doxepin and Bupropion. Hypokalemia: Status post replacement Macrocytic anemia. B-12 and folate not low GI Prophylaxis: Protonix. DVT Prophylaxis: SCDs. Early ambulation Discharge Planning Patient not stable for discharge with worsening respiratory function Armin Syed MD Aug 10, 2017 11:09
[2017-08-10] MEDS: ACETAMINOPHEN 325 MG TAB PO PRN (11:14)
[2017-08-10] MEDS ORDERED: PIPERACIL-TAZO 4.5 GM PREMIX 100 ML IV SCH (11:15)
[2017-08-10] MEDS ORDERED: SODIUM CHLORIDE 0.9% FLUSH 10 ML FLUSH IV FLUSH PRN (11:15)
[2017-08-10] MEDS ORDERED: CIPROFLOXACIN 400 MG PREMIX 200 ML IV STA (11:28)
[2017-08-10] MEDS: RESP: ALBUTEROL 0.63 MG/3 ML NEB (SCH) NEB ×2 (12:46→15:56)
[2017-08-10] MEDS: RESP: IPRATROPIUM 0.5 MG/2.5 ML NEB NEB SCH ×2 (12:46→15:56)
[2017-08-10] MEDS: methylPREDNISolone SOD SUCC 40 MG/1 ML VIAL IV PUSH SCH ×2 (13:12→21:05)
[2017-08-10] MEDS: MORPHINE SULFATE 4 MG/ML INJ IV PUSH PRN (13:12)
--- NOTE | 2017-08-10 18:02 | RADRPT ---
EXAM DATE/TIME: 08/10/2017 17:36 [facility] COMPARISON: No previous studies available for comparison. INDICATIONS : Shortness of breath. Evaluate pneumonia. RADIATION DOSE: 5.34 CTDIvol (mGy) MEDICAL HISTORY : Chronic obstructive pulmonary disease. SURGICAL HISTORY : Tubal ligation. ENCOUNTER: Initial ACUITY: 3 days PAIN SCALE: 0/10 LOCATION: Bilateral chest TECHNIQUE: Volumetric scanning of the chest was performed. Using automated exposure control and adjustment of t he mA and/or kV according to patient size, radiation dose was kept as low as reasonably achievable to obtain optimal diagnostic quality images. DICOM format image data is available electronically for r eview and comparison. Follow-up recommendations for detected pulmonary nodules are based at a minimum on nodule size and pa tient risk factors according to Fleischner Society Guidelines. FINDINGS: LUNGS: Mild upper lobe or dominant centrilobular emphysema. Upper lobe predominant interstitial and diffuse bilateral groundglass opacities. While focal air space consolidation in the anterior left and posteri or right lung bases. PLEURAE: Trace right pleural effusion. MEDIASTINUM: The heart and great vessels demonstrate no acute abnormality. There is no mediastinal or hilar lymph adenopathy. There is a right subclavian central line in place. AXILLAE: Within normal limits. No lymphadenopathy. MUSCULOSKELETAL: Within normal limits for patient age. MISCELLANEOUS: The visualized upper abdominal organs demonstrate no acute abnormality. CONCLUSION: 1. Upper lobe predominant central emphysema with upper lobe predominant diffuse interstitial and grou ndglass opacities. Differential considerations include developing ARDS, atypical infection, pulmonary edema, sarcoidosis, and drug induced lung disease amongst other etiologies. 2. Trace right pleural effusion. Jovi Loaiza MD on August 10, 2017 at 17:53 Board Certified Radiologist. This report was verified electronically.
[2017-08-10 18:49] LABS: BLOOD GAS BASE EXCESS 4.8 mmol/L (-2-2); BLOOD GAS CARBOXYHEMOGLOBIN 1.8 % (0-4); BLOOD GAS HCO3 28 mmol/L (22-26); BLOOD GAS METHEMOGLOBIN 1.8 % (0-2); BLOOD GAS O2 HGB SATURATION 87 % (90-100); BLOOD GAS OXYGEN CONTENT 14.1 Vol % (12.0-20.0); BLOOD GAS PCO2 36 mmHg (38-42); BLOOD GAS PO2 55 mmHg (61-120); BLOOD GAS TOTAL HGB 11.6 G/DL (12.0-16.0); TEMP CORR TO 98.6
[2017-08-10 18:51] LABS: CRITICAL VALUE YES; DRAW SITE RT RADIAL; LITER FLOW 6 L/M; NUMBER OF ARTERIAL PUNCTURES 1; OXYGEN DEVICE NASAL CANNULA; STAT NO; ULNAR PULSE PRESENT
[2017-08-10] MEDS: RESP: ALBUTEROL 2.5 MG/IPRATROPIUM 0.5 MG NEB (SCH) NEB (19:59)
[2017-08-10] MEDS ORDERED: PHARMACY ORDERED LAB ONE (20:45)
[2017-08-10] MEDS ORDERED: CIPROFLOXACIN 400 MG PREMIX 200 ML IV SCH (21:00)
[2017-08-10] MEDS: BUDESONIDE-FORMOTEROL 160/4.5 MCG INHALER INH SCH (21:02)
[2017-08-11] VITALS (16 sets, daily range): BP systolic 132–153; BP diastolic 61–84; PULSE 107–121; RESP 17–32; TEMP 97.3–98.7; O2SAT 80–98
[2017-08-11] MEDS: methylPREDNISolone SOD SUCC 40 MG/1 ML VIAL IV PUSH SCH ×3 (05:11→19:56)
[2017-08-11] MEDS: RESP: ALBUTEROL 2.5 MG/IPRATROPIUM 0.5 MG NEB (SCH) NEB ×4 (08:14→20:00)
[2017-08-11] MEDS: LEVOFLOXACIN 750 MG PREMIX INJ 150 ML IV SCH (08:49)
[2017-08-11] MEDS: DOXEPIN HCL 50 MG CAP PO SCH ×2 (08:50→19:56)
[2017-08-11] MEDS: FLUoxetine HCL 20 MG CAP PO SCH (08:50)
[2017-08-11] MEDS: GABAPENTIN 300 MG CAP PO SCH ×2 (08:50→19:56)
[2017-08-11] MEDS: LEVOTHYROXINE SODIUM 50 MCG TAB PO SCH (08:50)
[2017-08-11] MEDS: CHOLECALCIFEROL (VIT D3) 1000 UNIT TAB PO SCH (08:51)
[2017-08-11] MEDS: FOLIC ACID 1 MG TAB PO SCH (08:51)
[2017-08-11] MEDS: PANTOPRAZOLE SOD 40 MG DELAYED RELEASE TAB PO SCH (08:51)
[2017-08-11] MEDS: DOCUSATE SODIUM 50 MG/SENNA 8.6 MG TAB PO SCH ×2 (08:51→19:57)
[2017-08-11] MEDS: buPROPion HCL 100 MG SUSTAINED RELEASE TAB PO SCH ×2 (08:52→19:56)
[2017-08-11] MEDS: BUDESONIDE-FORMOTEROL 160/4.5 MCG INHALER INH SCH ×2 (08:52→19:56)
[2017-08-11] MEDS: guaiFENesin E.R. 600 MG TAB PO SCH ×2 (09:00→19:56)
[2017-08-11] MEDS ORDERED: VANCOMYCIN INJ 1,750 MG in SODIUM CHLORID 0.9% 500 ML INJ 500 ML IV SCH (09:00)
[2017-08-11 09:07] LABS: BLOOD GAS BASE EXCESS 5.1 mmol/L (-2-2); BLOOD GAS CARBOXYHEMOGLOBIN 1.6 % (0-4); BLOOD GAS HCO3 28 mmol/L (22-26); BLOOD GAS METHEMOGLOBIN 1.5 % (0-2); BLOOD GAS O2 HGB SATURATION 92 % (90-100); BLOOD GAS OXYGEN CONTENT 13.3 Vol % (12.0-20.0); BLOOD GAS PCO2 35 mmHg (38-42); BLOOD GAS PO2 70 mmHG (61-120); BLOOD GAS TOTAL HGB 10.3 G/DL (12.0-16.0); TEMP CORR TO 98.6
[2017-08-11 09:08] LABS: CRITICAL VALUE YES; DRAW SITE RT RADIAL; LITER FLOW 13 L/M; NUMBER OF ARTERIAL PUNCTURES 1; OXYGEN DEVICE NRB; STAT YES; ULNAR PULSE PRESENT
--- NOTE | 2017-08-11 09:13 | MB ---
cc: Perla VERA M.D. DATE OF CONSULTATION: 08/10/2017. REASON FOR CONSULTATION COPD. HISTORY OF PRESENT ILLNESS This is a 57-year-old white female. She has a longstanding history of COPD and history of rheumatoid arthritis and fibromyalgia, was admitted with pain and swelling of the left elbow. The patient apparently was out of town and tripped and fell on her elbow injuring the elbow and requiring sutures for a laceration. Subsequently she developed swelling and redness and cellulitis and the patient was then brought to the ER where she was noted to have cellulitis with an abscessed area and now was seen by orthopedics and subsequently also placed on antibiotic coverage for soft tissue infection with a joint abscess. She has a brace on her arm. She also was hypoxic upon admission and has been placed on oxygen via nasal cannula at 3 liters and she does have a cough but her chest x-ray that was done showed no acute pulmonary infiltrates. Presently the patient states she has some wheezing and shortness of breath but denies any significant sputum production or chest pain. PAST MEDICAL HISTORY Past history has included: 1. History of rheumatoid arthritis. 2. Interstitial lung disease. 3. History of chronic obstructive pulmonary disease. 4. History of fibromyalgia. 5. She has depression and anxiety. PAST SURGICAL HISTORY 1. Colon resection several years ago. 2. Tubal ligation. 3. Surgery on her left knee. HABITS The patient smoked in the past for over 30 years, half to one-pack per day. Drinks alcohol occasionally. FAMILY HISTORY Noncontributory. MEDICATION Med list included: 1. Synthroid 50 mcg daily. 2. Methotrexate 2.5 mg five tablets weekly. 3. Wellbutrin 150 mg and 300 mg daily. 4. Naprosyn 220 mg p.r.n. 5. Pro-Air 2 puffs p.r.n. 6. Prednisone 20 mg as directed. 7. Doxepin 50 mg b.i.d. 8. Humira injection monthly. 9. Prevacid 30 mg a day. 10. Prozac 40 mg three caps daily. 11. Gabapentin 600 mg at bedtime. ALLERGIES None listed. REVIEW OF SYSTEMS The patient denies any chest pain. She has cough, wheezing, orthopnea and shortness of breath. She has mild leg swelling. She has elbow pain on the left. She has depression, anxiety and reflux symptoms. The other system review is negative except for arthritis. PHYSICAL EXAMINATION GENERAL: This is a averagely built middle-aged white female who is anxious and mildly dyspneic at rest. VITAL SIGNS: Blood pressure 138/80, pulse is 92, respirations 20, temperature 97.5. HEENT: Head normocephalic. Pupils reactive and equal. Tongue is moist. Nasal mucosa edematous. Throat is injected. Ears have no inflammation. NECK: No bruits or thyroid enlargement or lymphadenopathy. CHEST: Decreased excursions. Expiratory wheezes scattered throughout both lung cabrera. Prolonged expirations. HEART: The heart sounds are irregular, S1-S2. No definite murmur. No S3. ABDOMEN: The abdomen is protuberant and soft without masses or organomegaly or tenderness. EXTREMITIES: Mild joint deformities. The left arm is in a brace and dressing. There is no peripheral edema. Peripheral pulses are well felt. Reflexes are 1+ with no gross motor deficits. Cranial nerves are grossly intact. SKIN: No lesions observed. IMPRESSION 1. COPD with emphysema and chronic bronchitis. 2. Cellulitis and left elbow joint infection. 3. Nicotine dependency. 4. History of rheumatoid arthritis and interstitial lung disease. 5. Fibromyalgia. PLAN The patient will be maintained on O2 at 2-1/2 liters nasal cannula, nebulized DuoNeb solution added q.i.d. and p.r.n. Symbicort 160/4.5 two puffs twice a day. We will get a pulmonary function study with bronchodilators and copy of her previous records will be requested. If she is bringing up any sputum, this will be sent for culture and Gram stain. Blood gas studies to be obtained. The patient may qualify for home oxygen if she desaturates below 88%. Thank you Dr. Santillan for this consultation. MD RJ Manzanares/MARK /8:19 AM 8:49 AM
--- NOTE | 2017-08-11 11:23 | HHI.PR ---
Subjective Remarks Follow-up pneumonia. I was called earlier by RN because of hypoxia requiring partial rebreather, ordered stat ABG and transfer to ICU. Discussed with pulmonary, MEDICAL CONSULTANT and RT. Complains of dyspnea on exertion. Improving cough. She wants to be a full code but does not want to be kept alive on a ventilator Objective Vitals Vital Signs Date Time Temp Pulse Resp B/P (MAP) Pulse Ox O2 Delivery O2 Flow Rate FiO2 08/11/17 08:54 89 Partial Non-Rebreather 13.00 08/11/17 08:14 95 Partial Rebreather 13.00 08/11/17 08:00 97.8 113 17 153/68 (96) 80 08/11/17 07:45 89 Partial Non-Rebreather 13.00 08/11/17 06:10 90 Nasal Cannula 4.50 08/11/17 05:17 91 5.50 08/11/17 04:00 97.7 110 22 132/62 (85) 92 08/11/17 01:05 119 08/11/17 00:24 92 Nasal Cannula 6.00 08/11/17 00:00 97.3 113 24 135/61 (85) 93 08/10/17 22:00 91 Nasal Cannula 6.00 08/10/17 20:01 88 Venturi Mask 6.00 50 08/10/17 20:00 98.9 116 24 168/77 (107) 92 08/10/17 16:00 91 6.00 08/10/17 16:00 97.6 112 20 167/70 (102) 91 08/10/17 12:51 90 Nasal Cannula 5.00 08/10/17 12:00 91 Nasal Cannula 5.00 08/10/17 12:00 97.7 117 26 181/81 (114) 91 I/O 08/10/17 08/10/17 08/10/17 08/11/17 08/11/17 08/11/17 07:00 15:00 23:00 07:00 15:00 23:00 Intake Total 660 ml 1600 ml 480 ml Output Total 1450 ml 900 ml Balance -1450 ml 660 ml 1600 ml -420 ml Intake Oral 1600 ml 480 ml IV Total 660 ml Output Urine Total 1450 ml 900 ml # Voids 5 # Bowel Movements 1 0 Result Diagram: 08/08/17 0706 08/10/17 0635 Imaging Last Impressions Chest CT 08/10/17 0000 Signed Impressions: Service Date/Time: Thursday, August 10, 2017 17:36 - CONCLUSION: 1. Upper lobe predominant central emphysema with upper lobe predominant diffuse interstitial and groundglass opacities. Differential considerations include developing ARDS, atypical infection, pulmonary edema, sarcoidosis, and drug induced lung disease amongst other etiologies. 2. Trace right pleural effusion. Jovi Loaiza MD Chest X-Ray 08/09/17 0000 Signed Impressions: Service Date/Time: Wednesday, August 09, 2017 19:51 - CONCLUSION: Worsening right pneumonia. Right arm PICC has its tip at the atriocaval junction. No evidence of an acute complication. Cleve Dior MD Upper Extremity Ultrasound 08/07/17 1213 Signed Impressions: Service Date/Time: Monday, August 07, 2017 12:30 - CONCLUSION: Negative for deep venous thrombosis. Naveed Sage MD FACR Elbow X-Ray 08/07/17 0000 Signed Impressions: Service Date/Time: Monday, August 07, 2017 13:12 - CONCLUSION: Joint effusion, no fracture Naveed Sage MD FACR Elbow MRI 08/07/17 0000 Signed Impressions: Service Date/Time: Monday, August 07, 2017 14:11 - CONCLUSION: Presumed inflammatory process mainly involving the brachialis. The joint is suspected to be infected as well. There is no osteomyelitis as yet. Neurovascular bundle is displaced medially there are brachial bifurcation findings have been discussed with Latosha FRANCOIS on today's date. Naveed Sage MD FACR Objective Remarks GENERAL: Well-developed, well-nourished patient who is critically ill in mild respiratory distress with tachypnea on partial rebreather NECK: Trachea midline. No JVD. CARDIOVASCULAR: Tachycardic but with regular rhythm. RESPIRATORY: No accessory muscle use. Expiratory wheezes noted. Breath sounds equal bilaterally with rhonchi. GASTROINTESTINAL: Abdomen soft, non-tender, nondistended. MUSCULOSKELETAL: Extremities without clubbing, cyanosis, or edema. No obvious deformities. Left upper extremity with dry dressing NEUROLOGICAL: Awake and alert. No obvious cranial nerve deficits. Motor grossly within normal limits. Five out of 5 muscle strength in the arms and legs. Normal speech. Procedures Irrigation and debridement of left elbow A/P Problem List: (1) Joint infection ICD Code: M00.9 - Pyogenic arthritis, unspecified Status: Acute Assessment and Plan Ms. Hollingsworth is a 57-year-old female patient with a known medical history of COPD , rheumatoid arthritis and fibromyalgia who presented to the ED with complaints of worsening left elbow swelling and pain. Acute respiratory failure secondary to COPD exacerbation with hospital-acquired pneumonia. CT shows possible ARDS versus pulmonary edema. I have transferred patient to ICU because of high likelihood of intubation and mechanical ventilation. I will add cefepime and continue IV vancomycin and Levaquin. Follow-up cultures. She will also be on nebulizations, IV steroids (for 2 more doses) and oxygen to keep saturation at least 92%. BiPAP as needed. Septic arthritis left elbow status post irrigation and debridement. Culture with MRSA Continue IV vancomycin and discontinue Zosyn, pain management with oxycodone and IV morphine and wound care. Patient has been cleared for discharge by orthopedic surgery and infectious disease. Case management to assist with Op IV antibiotics via PICC Sepsis secondary to above. Rheumatoid arthritis: Hold Methotrexate, prednisone and Humira while having active infection. Hypothyroidism: Continue home Synthroid. Fibromyalgia: Continue home gabapentin. Depression: Continue home Doxepin and Bupropion. Hypokalemia: Status post replacement Macrocytic anemia. B-12 and folate not low GI Prophylaxis: Protonix. DVT Prophylaxis: SCDs. Early ambulation. We'll start subcutaneous heparin Discharge Planning Patient is critically ill and will be managed in the ICU setting. High likelihood of decompensation requiring intubation and mechanical ventilation. She is a full code. Critical care time spent 35 minutes. Armin Syed MD Aug 11, 2017 11:23
[2017-08-11] MEDS ORDERED: CEFEPIME INJ 2,000 MG in SODIUM CHLORIDE 0.9% INJ 100 ML IV ONE (12:00)
[2017-08-11] MEDS: HEPARIN SODIUM - SQ 10,000 UNITS/ML VIAL SQ SCH ×2 (12:31→21:13)
[2017-08-11] MEDS: VANCOMYCIN INJ 1,750 MG in SODIUM CHLORID 0.9% 500 ML INJ 500 ML IV SCH (14:50)
[2017-08-11] MEDS: RESP: ALBUTEROL 0.63 MG/3 ML NEB (SCH) NEB ×2 (16:00→21:58)
[2017-08-11] MEDS: RESP: IPRATROPIUM 0.5 MG/2.5 ML NEB NEB SCH ×2 (16:00→21:58)
--- NOTE | 2017-08-11 17:16 | HHI.IDPN ---
Subjective Subjective Remarks transferred to ICU / probressive resp distress On NRB Pt refuses intubation in case she needs it, only non invasive + cough, not much expectoratin afebrile On NC O2 Current meds: Current Medications Morphine Sulfate (Morphine Inj) 2 mg ONCE ONCE IV PUSH Last administered on 12:45; Start 08/07/17 at 12:15; Stop 08/07/17 at 12:16; Status DC Ondansetron HCl (Zofran Inj) 4 mg ONCE ONCE IVP Last administered on 12:46; Start 08/07/17 at 12:15; Stop 08/07/17 at 12:16; Status DC Sodium Chloride 1,000 ml @ 1,000 mls/hr Q1H IV Last administered on 08/07/17 12:44; Start 08/07/17 at 12:03; Stop 08/07/17 at 13:02; Status DC Sodium Chloride (NS Flush) 2 ml UNSCH PRN IV FLUSH FLUSH AFTER USING IV ACCESS ; Start 08/07/17 at 12:15; Stop 08/09/17 at 19:46; Status DC Lidocaine/ Epinephrine (Xylocaine-Epi 2%-1:100,000 Inj) 20 ml ONCE ONCE NERV BLOCK Last administered on 08/07/17 12:15; Start 08/07/17 at 12:15; Stop 08/07 at 12:16; Status DC Morphine Sulfate (Morphine Inj) 4 mg ONCE ONCE IV PUSH Last administered on 13:47; Start 08/07/17 at 13:30; Stop 08/07/17 at 13:31; Status DC Lorazepam (Ativan Inj) 1 mg ONCE ONCE IV PUSH Last administered on 08/07/17 14:04; Start 08/07/17 at 14:00; Stop 08/07/17 at 14:01; Status DC Gadodiamide (Omniscan Pf Inj) 15 ml STK-MED ONCE IVCONTRAST Last administered on 08/07/17 14:57; Start 08/07/17 at 14:57; Stop 08/07/17 at 14:58; Status DC Clonidine (Catapres) 0.1 mg Q4H PRN PO SBP>160, DBP>90; Start 08/07/17 at 16:45 Sodium Chloride 1,000 ml @ 100 mls/hr Q10H IV Last administered on 08/08/17 05:13; Start 08/07/17 at 16:34; Stop 08/08/17 at 09:00; Status DC Sodium Chloride (NS Flush) 2 ml UNSCH PRN IV FLUSH FLUSH AFTER USING IV ACCESS ; Start 08/07/17 at 16:45 Sodium Chloride (NS Flush) 2 ml BID IV FLUSH Last administered on 08/10/17 21: 00; Start 08/07/17 at 21:00 Acetaminophen (Tylenol) 650 mg Q4H PRN PO TEMP > 100.4; Start 08/07/17 at 16:45 Ondansetron HCl (Zofran Inj) 4 mg Q6H PRN IVP NAUSEA OR VOMITING; Start at 16:45 Prochlorperazine (Compazine Supp) 25 mg Q12H PRN RECTAL NAUSEA OR VOMITING; Start 08/07/17 at 16:45 Zolpidem Tartrate (Ambien) 5 mg HS PRN PO INSOMNIA; Start 08/07/17 at 16:45 Acetaminophen (Tylenol) 650 mg Q6H PRN PO PAIN SCALE 1 TO 2 Last administered on 08/10/17 11:14; Start 08/07/17 at 16:45 Oxycodone/ Acetaminophen (Percocet 5-325 Mg) 1 tab Q6H PRN PO PAIN SCALE 3 TO 5 Last administered on 08/10/17 18:32; Start 08/07/17 at 16:45 Oxycodone/ Acetaminophen (Percocet 10-325 Mg) 1 tab Q6H PRN PO PAIN SCALE 6 TO 10 Last administered on 08/10/17 06:35; Start 08/07/17 at 16:45 Morphine Sulfate (Morphine Inj) 2 mg Q3H PRN IV PUSH Pain 3-5; if unable to take PO; Start 08/07/17 at 16:45 Morphine Sulfate (Morphine Inj) 4 mg Q3H PRN IV PUSH Pain 6-10;if unable to take PO; Start 08/07/17 at 16:45 Naloxone HCl (Narcan Inj) 0.4 mg UNSCH PRN IV PUSH SEE LABEL COMMENTS; Start at 16:45 Senna/Docusate Sodium (Ronit-Colace) 1 tab BID PO Last administered on 08:51; Start 08/07/17 at 21:00 Magnesium Hydroxide (Milk Of Magnesia Liq) 30 ml Q12H PRN PO MILD - MODERATE CONSTIPATION; Start 08/07/17 at 16:45 Sennosides (Senokot) 17.2 mg Q12H PRN PO MODERATE - SEVERE CONSTIPATION; Start 08/07/17 at 16:45 Bisacodyl (Dulcolax Supp) 10 mg DAILY PRN RECTAL SEVERE CONSITIPATION; Start at 16:45 Lactulose (Lactulose Liq) 30 ml DAILY PRN PO SEVERE CONSITIPATION; Start at 16:45 Albuterol Sulfate (Proair Hfa Inh) 1 puff Q4H PRN INH SHORTNESS OF BREATH; Start 08/07/17 at 16:45 Bupropion HCl (Wellbutrin Xl 24 Hr) 150 mg DAILY PO ; Start 08/08/17 at 09:00; Stop 08/08/17 at 09:00; Status DC Bupropion HCl (Wellbutrin Xl 24 Hr) 300 mg DAILY PO ; Start 08/08/17 at 09:00; Stop 08/08/17 at 09:00; Status DC Cholecalciferol (Vitamin D3) 1,000 units DAILY PO Last administered on 08:51; Start 08/08/17 at 09:00 Doxepin HCl (SINEquan) 50 mg BID PO Last administered on 08/11/17 08:50; Start 08/07/17 at 21:00 Folic Acid (Folate) 1 mg DAILY PO Last administered on 08/11/17 08:51; Start 08/08/17 at 09:00 Gabapentin (Neurontin) 300 mg DAILY PO Last administered on 08/11/17 08:50; Start 08/08/17 at 09:00 Gabapentin (Neurontin) 600 mg HS PO Last administered on 08/10/17 21:04; Start 08/07/17 at 21:00 Levothyroxine Sodium (Synthroid) 50 mcg DAILY PO Last administered on 08:50; Start 08/08/17 at 09:00 Methotrexate (Rheumatrex) 2.5 mg Q7D PO ; Start 08/13/17 at 09:00; Status Future Hold Fluoxetine HCl (PROzac) 120 mg DAILY PO ; Start 08/08/17 at 09:00; Stop at 17:07; Status DC Pantoprazole Sodium (Protonix) 40 mg DAILY PO Last administered on 08/11/17 08 :51; Start 08/08/17 at 09:00 Non-Formulary Medication 2 puff BID INH Last administered on 08/10/17 21:00; Start 08/07/17 at 21:00 Ondansetron HCl (Zofran Odt) 4 mg Q12HR PRN PO NAUSEA OR VOMITING; Start 08/07 at 16:45 Propranolol HCl (Inderal) 60 mg Q6HR PRN PO SBP>160, DBP>90; Start 08/07/17 at 16:45 Non-Formulary Medication 50 mg DAILY PO ; Start 08/08/17 at 09:00; Stop at 09:00; Status DC Guaifenesin (Mucinex Er) 600 mg BID PO Last administered on 08/11/17 09:00; Start 08/07/17 at 21:00 Albuterol/ Ipratropium (Duoneb Neb) 1 ampule Q4HR NEB PRN NEB SHORTNESS OF BREATH; Start 08/07/17 at 19:00; Stop 08/10/17 at 11:13; Status DC Gentamicin Sulfate (Gentamicin Inj) 240 mg STK-MED ONCE .ROUTE Last administered on 08/07/17 19:28; Start 08/07/17 at 18:51; Stop 08/07/17 at 18:52 ; Status DC Vancomycin HCl (Vancomycin Inj) 1,000 mg STK-MED ONCE .ROUTE Last administered on 08/07/17 19:49; Start 08/07/17 at 19:26; Stop 08/07/17 at 19:27; Status DC Piperacillin Sod/ Tazobactam Sod 50 ml @ 100 mls/hr Q6H IV Last administered on 08/07/17 19:51; Start 08/07/17 at 20:00; Stop 08/07/17 at 21:24; Status DC Piperacillin Sod/ Tazobactam Sod 50 ml @ 100 mls/hr NOW ONCE IV ; Start at 20:15; Stop 08/07/17 at 20:44; Status DC Morphine Sulfate (*morphine INJ PERIprocedure ONLY) 8 mg STK-MED ONCE .ROUTE Last administered on 08/07/17 20:38; Start 08/07/17 at 20:38; Stop 08/07/17 at 20:39; Status DC Pharmacy Profile Note 0 ml @ 0 mls/hr UNSCH OTHER ; Start 08/07/17 at 20:45 Piperacillin Sod/ Tazobactam Sod 50 ml @ 100 mls/hr Q8H IV Last administered on 08/09/17 04:21; Start 08/08/17 at 04:00; Stop 08/09/17 at 13:11; Status DC Morphine Sulfate (*morphine INJ PERIprocedure ONLY) 8 mg STK-MED ONCE .ROUTE Last administered on 08/07/17 20:50; Start 08/07/17 at 20:50; Stop 08/07/17 at 20:51; Status DC Morphine Sulfate (*morphine INJ PERIprocedure ONLY) 8 mg STK-MED ONCE .ROUTE Last administered on 08/07/17 21:01; Start 08/07/17 at 21:01; Stop 08/07/17 at 21:02; Status DC Miscellaneous Information ALL NURSING DEPARTME... UNSCH PRN .XX SEE LABEL COMMENTS; Start 08/07/17 at 20:36; Stop 08/08/17 at 20:35; Status DC Vancomycin HCl 1000 mg/Sodium Chloride 250 ml @ 250 mls/hr NOW ONCE IV Last administered on 08/07/17 21:55; Start 08/07/17 at 21:45; Stop 08/07/17 at 22:44 ; Status DC Vancomycin HCl 1300 mg/Sodium Chloride 513 ml @ 250 mls/hr Q12H IV Last administered on 08/09/17 10:42; Start 08/08/17 at 10:00; Stop 08/09/17 at 11:00 ; Status DC Miscellaneous Information "DRAW VANCOMYCIN TRO... ONCE .XX ; Start 08/07/17 at 21:40; Stop 08/09/17 at 12:00; Status DC Bupropion HCl (Wellbutrin Sr 12 Hr) 200 mg BID PO Last administered on 08:52; Start 08/08/17 at 09:00 Miscellaneous Information SPECIFIC LAB TO BE ANGELY... ONCE ONCE .XX Last administered on 08/09/17 09:45; Start 08/09/17 at 09:45; Stop 08/09/17 at 09:46 ; Status DC Morphine Sulfate (Morphine Inj) 4 mg Q3H PRN IV PUSH BREAKTHROUGH PAIN Last administered on 08/10/17 13:12; Start 08/08/17 at 13:15 Potassium Chloride (KCl) 40 meq ONCE ONCE PO Last administered on 08/08/17 16 :35; Start 08/08/17 at 16:30; Stop 08/08/17 at 16:31; Status DC Fluoxetine HCl (PROzac) 120 mg DAILY PO Last administered on 08/11/17 08:50; Start 08/08/17 at 17:15 Vancomycin HCl 1500 mg/Sodium Chloride 515 ml @ 257.5 mls/ hr Q12H IV Last administered on 08/10/17 21:02; Start 08/09/17 at 21:00; Stop 08/10/17 at 22:28 ; Status DC Miscellaneous Information SPECIFIC LAB TO BE ANGELY... ONCE ONCE .XX Last administered on 08/10/17 20:45; Start 08/10/17 at 20:45; Stop 08/10/17 at 20:46 ; Status DC Sodium Chloride (NS Flush) See Protocol DAILY IV FLUSH Last administered on 09:40; Start 08/10/17 at 09:00 Sodium Chloride (NS Flush) See Protocol UNSCH PRN IV FLUSH SEE PROTOCOL TABLE; Start 08/09/17 at 20:00 Heparin Sodium (Porcine) (Heparin Central Flush) See Protocol DAILY IV FLUSH Last administered on 08/11/17 08:50; Start 08/10/17 at 09:00 Heparin Sodium (Porcine) (Heparin Central Flush) See Protocol UNSCH PRN IV FLUSH SEE PROTOCOL TABLE; Start 08/09/17 at 20:00 Sodium Chloride (NS Flush) UNSCH PRN IV FLUSH SEE PROTOCOL TABLE; Start at 20:00 Albuterol Sulfate (Albuterol Neb) 0.63 mg Q6HR NEB NEB Last administered on 15:56; Start 08/10/17 at 11:15 Ipratropium [place] (Atrovent Neb) 0.5 mg Q6HR NEB NEB Last administered on 15:56; Start 08/10/17 at 11:15 Methylprednisolone Sodium Succinate (SoluMEDROL INJ) 40 mg Q8HR IV PUSH Last administered on 08/11/17 12:30; Start 08/10/17 at 14:00; Stop 08/11/17 at 14:01 ; Status DC Albuterol Sulfate (Albuterol Neb) 0.63 mg Q4HR NEB PRN NEB sob; Start 08/10/17 at 11:15 Piperacillin Sod/ Tazobactam Sod 100 ml @ 200 mls/hr Q6H IV ; Start 08/10/17 at 11:15; Stop 08/10/17 at 11:18; Status DC Ciprofloxacin/ Dextrose 200 ml @ 200 mls/hr ONCE STAT IV Last administered on 08/10/17 11:35; Start 08/10/17 at 11:28; Stop 08/10/17 at 12:27; Status DC Ciprofloxacin/ Dextrose 200 ml @ 200 mls/hr Q12H IV ; Start 08/10/17 at 21:00; Stop 08/10/17 at 21:00; Status DC Sodium Chloride (NS Flush) 2 ml UNSCH PRN IV FLUSH FLUSH AFTER USING IV ACCESS ; Start 08/10/17 at 11:15 Sodium Chloride (NS Flush) 2 ml BID IV FLUSH Last administered on 08/10/17 21: 00; Start 08/10/17 at 21:00 Levofloxacin/ Dextrose 150 ml @ 100 mls/hr Q24H IV Last administered on 08:49; Start 08/11/17 at 08:00 Budesonide/ Formoterol Fumarate (Symbicort 160-4.5 Inh) 2 puff Q12HR INH Last administered on 08/11/17 08:52; Start 08/10/17 at 21:00 Albuterol/ Ipratropium (Duoneb Neb) 1 ampule QID NEB NEB Last administered on 08/11/17 16:31; Start 08/10/17 at 20:00 Vancomycin HCl 1750 mg/Sodium Chloride 517.5 ml @ 250 mls/hr Q12H IV ; Start 08/11/17 at 09:00; Stop 08/11/17 at 14:26; Status DC Miscellaneous Information SPECIFIC LAB TO BE DRAWN:VANCO TROUGH DATE TO BE DRStephanie.. ONCE ONCE .XX ; Start 08/13/17 at 02:45; Stop 08/13/17 at 02:46 Cefepime HCl 2000 mg/Sodium Chloride 100 ml @ 200 mls/hr Q8H IV ; Start at 18:00 Cefepime HCl 2000 mg/Sodium Chloride 100 ml @ 200 mls/hr ONCE ONCE IV Last administered on 08/11/17 12:30; Start 08/11/17 at 12:00; Stop 08/11/17 at 12:29 ; Status DC Heparin Sodium (Porcine) (Heparin Inj) 5,000 units Q8HR SQ Last administered on 08/11/17 12:31; Start 08/11/17 at 14:00 Vancomycin HCl 1750 mg/Sodium Chloride 517.5 ml @ 250 mls/hr Q12H IV Last administered on 08/11/17 14:50; Start 08/11/17 at 15:00 Antibiotics cefepime l;evaquine vancomycin Allergies: Coded Allergies: No Known Allergies (Unverified , 08/07/17) Objective . Vital Signs Date Time Temp Pulse Resp B/P (MAP) Pulse Ox O2 Delivery O2 Flow Rate FiO2 08/11/17 16:00 98.4 112 32 136/63 (87) 98 08/11/17 11:00 107 08/11/17 11:00 98.4 107 24 140/64 (89) 97 08/11/17 08:54 89 Partial Non-Rebreather 13.00 08/11/17 08:14 95 Partial Rebreather 13.00 08/11/17 08:00 97.8 113 17 153/68 (96) 80 08/11/17 07:45 89 Partial Non-Rebreather 13.00 08/11/17 06:10 90 Nasal Cannula 4.50 08/11/17 05:17 91 5.50 08/11/17 04:00 97.7 110 22 132/62 (85) 92 08/11/17 01:05 119 08/11/17 00:24 92 Nasal Cannula 6.00 08/11/17 00:00 97.3 113 24 135/61 (85) 93 08/10/17 22:00 91 Nasal Cannula 6.00 08/10/17 20:01 88 Venturi Mask 6.00 50 08/10/17 20:00 98.9 116 24 168/77 (107) 92 08/11/17 08/11/17 08/12/17 15:00 23:00 07:00 Intake Total 100 ml Balance 100 ml IV Total 100 ml # Voids 1 . Laboratory Tests Test 08/10/17 06:35 08/10/17 21:42 Creatinine 0.55 MG/DL Estimat Glomerular Filtration Rate 114 ML/MIN Lactic Acid Level 1.3 mmol/L Microbiology Date/Time Source Procedure Growth Status 08/11/17 14:05 Sputum Expectorated Sputum Gram Stain Pending Received 08/11/17 14:05 Sputum Expectorated Sputum Sputum Culture Pending Received Imaging Last Impressions Chest CT 08/10/17 0000 Signed Impressions: Service Date/Time: Thursday, August 10, 2017 17:36 - CONCLUSION: 1. Upper lobe predominant central emphysema with upper lobe predominant diffuse interstitial and groundglass opacities. Differential considerations include developing ARDS, atypical infection, pulmonary edema, sarcoidosis, and drug induced lung disease amongst other etiologies. 2. Trace right pleural effusion. Jovi Loaiza MD Chest X-Ray 08/09/17 0000 Signed Impressions: Service Date/Time: Wednesday, August 09, 2017 19:51 - CONCLUSION: Worsening right pneumonia. Right arm PICC has its tip at the atriocaval junction. No evidence of an acute complication. Cleve Dior MD Upper Extremity Ultrasound 08/07/17 1213 Signed Impressions: Service Date/Time: Monday, August 07, 2017 12:30 - CONCLUSION: Negative for deep venous thrombosis. Naveed Sage MD FACR Elbow X-Ray 08/07/17 0000 Signed Impressions: Service Date/Time: Monday, August 07, 2017 13:12 - CONCLUSION: Joint effusion, no fracture Naveed Sage MD FACR Elbow MRI 08/07/17 0000 Signed Impressions: Service Date/Time: Monday, August 07, 2017 14:11 - CONCLUSION: Presumed inflammatory process mainly involving the brachialis. The joint is suspected to be infected as well. There is no osteomyelitis as yet. Neurovascular bundle is displaced medially there are brachial bifurcation findings have been discussed with Latosha FRANCOIS on today's date. Naveed Sage MD FACR Physical Exam CONSTITUTIONAL/GENERAL: This is an adequately nourished patient, in no apparent distress. TUBES/LINES/DRAINS: SKIN: No jaundice, rashes, or lesions. CARDIOVASCULAR: Regular rate and rhythm without murmurs, gallops, or rubs. RESPIRATORY/CHEST: Symmetric, unlabored respirations. Fine crackles to auscultation. GASTROINTESTINAL: Abdomen soft, non-tender, nondistended. MUSCULOSKELETAL: Extremities without clubbing, cyanosis, or edema. No joint tenderness or effusion noted. No calf tenderness. No mottling or clubbing. Clean dry incision with stitche s in place; minimal serosang d/c on dressing no edema, no erythema fingers free of neurovascular deficits No ascending cellulitis, lymphangitis or ipsilateral lymphadenopathy NEUROLOGICAL: Awake and alert.Non focal PSYCHIATRIC: calm and cooperative Assessment & Plan Remarks Assessment and Plan Septic arthitis L elbow with deep abscess L brachialis muscle - growing MRSA sp I+D POD #1 New issue : resp infussificency CT with Upper lobe predominant central emphysema with upper lobe predominant diffuse interstitial and groundglass opacities ? atypical PNA Rec's: cont cefepime, levaquine sputum clx cont vancomycin x 4 weeks fu clx untill final OPAT forms filled out PICC dw Marilyn Arenas MD Aug 11, 2017 17:16
[2017-08-11] MEDS: CEFEPIME INJ 2,000 MG in SODIUM CHLORIDE 0.9% INJ 100 ML IV SCH (17:21)
--- NOTE | 2017-08-11 19:19 | HHI.PR ---
Subjective Remarks Cough and wheezing. She was transferred to ICU for Dyspnea and low sats. Objective Vital Signs Date Time Temp Pulse Resp B/P (MAP) Pulse Ox O2 Delivery O2 Flow Rate FiO2 08/11/17 16:00 98.4 112 32 136/63 (87) 98 08/11/17 11:00 107 08/11/17 11:00 98.4 107 24 140/64 (89) 97 08/11/17 08:54 89 Partial Non-Rebreather 13.00 08/11/17 08:14 95 Partial Rebreather 13.00 08/11/17 08:00 97.8 113 17 153/68 (96) 80 08/11/17 07:45 89 Partial Non-Rebreather 13.00 08/11/17 06:10 90 Nasal Cannula 4.50 08/11/17 05:17 91 5.50 08/11/17 04:00 97.7 110 22 132/62 (85) 92 08/11/17 01:05 119 08/11/17 00:24 92 Nasal Cannula 6.00 08/11/17 00:00 97.3 113 24 135/61 (85) 93 08/10/17 22:00 91 Nasal Cannula 6.00 08/10/17 20:01 88 Venturi Mask 6.00 50 08/10/17 20:00 98.9 116 24 168/77 (107) 92 I/O 08/10/17 08/10/17 08/10/17 08/11/17 08/11/17 08/11/17 07:00 15:00 23:00 07:00 15:00 23:00 Intake Total 660 ml 1600 ml 480 ml 100 ml 1257.5 ml Output Total 1450 ml 900 ml Balance -1450 ml 660 ml 1600 ml -420 ml 100 ml 1257.5 ml Intake Oral 1600 ml 480 ml 640 ml IV Total 660 ml 100 ml 617.5 ml Output Urine Total 1450 ml 900 ml # Voids 5 1 1 # Bowel Movements 1 0 1 Result Diagram: 08/08/17 0706 08/10/17 0635 Objective Remarks GENERAL: This is a averagely built middle-aged white female who is anxious and mildly dyspneic at rest. HEENT: Head normocephalic. Pupils reactive and equal. Tongue is moist. Nasal mucosa edematous. Throat is clear. NECK: No bruits or thyroid enlargement or lymphadenopathy. CHEST: Decreased excursions. Expiratory wheezes scattered throughout both lung cabrera. Prolonged expirations.Bi basal crackles. HEART: The heart sounds are irregular, S1-S2. No definite murmur. No S3. ABDOMEN: The abdomen is protuberant and soft without masses or organomegaly or tenderness. EXTREMITIES: Mild joint deformities. The left arm is in a brace and dressing. There is no peripheral edema. Peripheral pulses are well felt. Reflexes are 1+ with no gross motor deficits. Cranial nerves are grossly intact. SKIN: No lesions observed. Assessment and Plan Assessment and Plan IMPRESSION 1. COPD with emphysema and chronic bronchitis. 2. Cellulitis and left elbow joint infection. 3. Nicotine dependency. 4. History of rheumatoid arthritis and interstitial lung disease. 5. Fibromyalgia. Plan : 1. Cont Nebs qid , duoneb. 2. Will use BiPAP at HS 12/5 CM, 50 % FIO2 3. Cont Antibiotics. 4. CXR, CBC in am. 5. Add Symbicort 160/4.5 mcg , 2puffs bid Perla Gonzalez MD Aug 11, 2017 19:19
[2017-08-11] MEDS: SODIUM CHLORIDE 0.9% FLUSH 10 ML FLUSH IV FLUSH SCH ×3 (19:57→22:17)
[2017-08-11] MEDS: NON-FORMULARY DRUG (Mometasone-Formoterol 120 Act Inh (Dulera 120 Act Inh) 2 PUFF) INH SCH (19:57)
[2017-08-11] MEDS: ACETAMINOPHEN 325 MG TAB PO PRN (21:13)
[2017-08-11] MEDS: ZOLPIDEM TARTRATE 5 MG TAB PO PRN (22:17)
[2017-08-12] VITALS (34 sets, daily range): BP systolic 130–165; BP diastolic 81–91; PULSE 94–128; RESP 20–39; TEMP 98–98.5; O2SAT 86–95
[2017-08-12] MEDS: CEFEPIME INJ 2,000 MG in SODIUM CHLORIDE 0.9% INJ 100 ML IV SCH ×3 (02:10→17:34)
[2017-08-12] MEDS: VANCOMYCIN INJ 1,750 MG in SODIUM CHLORID 0.9% 500 ML INJ 500 ML IV SCH ×2 (03:11→14:53)
[2017-08-12] MEDS: HEPARIN SODIUM - SQ 10,000 UNITS/ML VIAL SQ SCH ×3 (05:23→21:53)
--- NOTE | 2017-08-12 05:56 | RADRPT ---
EXAM DATE/TIME: 08/12/2017 05:34 [facility] COMPARISON: CT THORAX W/O CONTRAST, August 10, 2017, 17:36. CHEST SINGLE AP, August 09, 2017, 19:51. INDICATIONS : Shortness of breath, possible pulmonary disease. MEDICAL HISTORY : Chronic obstructive pulmonary disease. SURGICAL HISTORY : Tubal ligation. ENCOUNTER: Subsequent ACUITY: 4 - 6 days PAIN SCORE: Non-responsive. LOCATION: Bilateral chest FINDINGS: Diffuse severe alveolar infiltrates of both lungs are worsening. No large effusion seen. No pneumotho rax. Heart size stable, within normal limits. CONCLUSION: Worsening diffuse bilateral airspace disease. Cleve Dior MD on August 12, 2017 at 5:53 Board Certified Radiologist. This report was verified electronically.
[2017-08-12] MEDS: RESP: ALBUTEROL 2.5 MG/IPRATROPIUM 0.5 MG NEB (SCH) NEB ×4 (07:18→19:38)
--- NOTE | 2017-08-12 07:51 | HHI.PR ---
Subjective Remarks In bed, still with sob, less wheezing, dessating, requiring partial rebreather mask No n/v/d/c. Feels anxious. Objective Vitals Vital Signs Date Time Temp Pulse Resp B/P (MAP) Pulse Ox O2 Delivery O2 Flow Rate FiO2 08/12/17 07:30 98.0 109 20 144/82 (102) 91 08/12/17 07:18 94 Partial Rebreather 15.00 08/12/17 06:00 102 08/12/17 05:03 93 Non-Rebreather 12.00 08/12/17 05:00 106 08/12/17 04:30 97 24 143/82 (102) 93 08/12/17 04:00 94 08/12/17 03:01 95 50 08/12/17 03:00 107 08/12/17 02:00 112 08/12/17 01:00 110 08/12/17 00:00 112 08/11/17 23:45 116 28 146/75 (98) 95 08/11/17 23:30 95 50 08/11/17 23:00 121 08/11/17 22:00 114 08/11/17 21:12 116 08/11/17 21:00 98.6 119 24 142/84 (103) 93 08/11/17 20:11 98 Partial Rebreather 11.00 08/11/17 20:00 Partial Non-Rebreather 11.00 08/11/17 20:00 98.7 115 28 145/67 (93) 93 08/11/17 16:00 98.4 112 32 136/63 (87) 98 08/11/17 11:00 107 08/11/17 11:00 98.4 107 24 140/64 (89) 97 08/11/17 08:54 89 Partial Non-Rebreather 13.00 08/11/17 08:14 95 Partial Rebreather 13.00 08/11/17 08:00 97.8 113 17 153/68 (96) 80 I/O 08/11/17 08/11/17 08/11/17 08/12/17 08/12/17 08/12/17 07:00 15:00 23:00 07:00 15:00 23:00 Intake Total 480 ml 100 ml 1257.5 ml 740 ml Output Total 900 ml Balance -420 ml 100 ml 1257.5 ml 740 ml Intake Oral 480 ml 640 ml 240 ml IV Total 100 ml 617.5 ml 500 ml Output Urine Total 900 ml # Voids 1 2 1 # Bowel Movements 0 1 0 Result Diagram: 08/08/17 0706 08/10/17 0635 Imaging Last Impressions Chest CT 08/10/17 0000 Signed Impressions: Service Date/Time: Thursday, August 10, 2017 17:36 - CONCLUSION: 1. Upper lobe predominant central emphysema with upper lobe predominant diffuse interstitial and groundglass opacities. Differential considerations include developing ARDS, atypical infection, pulmonary edema, sarcoidosis, and drug induced lung disease amongst other etiologies. 2. Trace right pleural effusion. Jovi Loaiza MD Chest X-Ray 08/09/17 0000 Signed Impressions: Service Date/Time: Wednesday, August 09, 2017 19:51 - CONCLUSION: Worsening right pneumonia. Right arm PICC has its tip at the atriocaval junction. No evidence of an acute complication. Cleve Dior MD Upper Extremity Ultrasound 08/07/17 1213 Signed Impressions: Service Date/Time: Monday, August 07, 2017 12:30 - CONCLUSION: Negative for deep venous thrombosis. Naveed Sage MD FACR Elbow X-Ray 08/07/17 0000 Signed Impressions: Service Date/Time: Monday, August 07, 2017 13:12 - CONCLUSION: Joint effusion, no fracture Naveed Sage MD FACR Elbow MRI 08/07/17 0000 Signed Impressions: Service Date/Time: Monday, August 07, 2017 14:11 - CONCLUSION: Presumed inflammatory process mainly involving the brachialis. The joint is suspected to be infected as well. There is no osteomyelitis as yet. Neurovascular bundle is displaced medially there are brachial bifurcation findings have been discussed with Latosha FRANCOIS on today's date. Naveed Sage MD FACR Objective Remarks GENERAL: Well-developed, well-nourished patient who is critically ill in mild respiratory distress with tachypnea on partial rebreather CARDIOVASCULAR: Tachycardic but with regular rhythm. RESPIRATORY: No accessory muscle use. Expiratory wheezes noted. Breath sounds equal bilaterally with rhonchi. GASTROINTESTINAL: Abdomen soft, non-tender, nondistended. MUSCULOSKELETAL: Extremities without clubbing, cyanosis, or edema. No obvious deformities. Left upper extremity with dry dressing NEUROLOGICAL: Awake and alert. No obvious cranial nerve deficits. Motor grossly within normal limits. Five out of 5 muscle strength in the arms and legs. Normal speech. Procedures Irrigation and debridement of left elbow A/P Problem List: (1) Joint infection ICD Code: M00.9 - Pyogenic arthritis, unspecified Status: Acute Assessment and Plan (1) Joint infection ICD Code: M00.9 - Pyogenic arthritis, unspecified Status: Acute Assessment and Plan Ms. Hollingsworth is a 57-year-old female patient with a known medical history of COPD , rheumatoid arthritis and fibromyalgia who presented to the ED with complaints of worsening left elbow swelling and pain. Acute respiratory failure secondary to COPD exacerbation with hospital-acquired pneumonia. CT shows possible ARDS versus pulmonary edema. I have transferred patient to ICU because of high likelihood of intubation and mechanical ventilation. I will add cefepime and continue IV vancomycin and Levaquin. Follow-up cultures. She will also be on nebulizations, IV steroids (for 2 more doses) and oxygen to keep saturation at least 92%. BiPAP as needed. Septic arthritis left elbow status post irrigation and debridement. Culture with MRSA Continue IV vancomycin and discontinue Zosyn, pain management with oxycodone and IV morphine and wound care. Patient has been cleared for discharge by orthopedic surgery and infectious disease. Case management to assist with OP IV antibiotics via PICC Sepsis secondary to above. Rheumatoid arthritis: Hold Methotrexate, prednisone and Humira while having active infection. Hypothyroidism: Continue home Synthroid. Fibromyalgia: Continue home gabapentin. Depression: Continue home Doxepin and Bupropion. Anxiety add small dos eof xanax Hypokalemia: Status post replacement, monitor and replace as need Macrocytic anemia. B-12 and folate not low GI Prophylaxis: Protonix. DVT Prophylaxis: SCDs. Early ambulation. On subcutaneous heparin Discharge Planning Pending improvement with reparatory distress. DC when cleared by ID, f/u to the end blood cultures. Needs PICC line at DC when cleared by ID to have PICC placed. CM ff for DC plan. Tasneem Smith MD Aug 12, 2017 07:51
[2017-08-12] MEDS: SODIUM CHLORIDE 0.9% FLUSH 10 ML FLUSH IV FLUSH SCH ×5 (09:00→21:51)
[2017-08-12] MEDS: BUDESONIDE-FORMOTEROL 160/4.5 MCG INHALER INH SCH ×2 (09:00→21:54)
[2017-08-12] MEDS: NON-FORMULARY DRUG (Mometasone-Formoterol 120 Act Inh (Dulera 120 Act Inh) 2 PUFF) INH SCH ×2 (09:00→21:00)
[2017-08-12] MEDS: LEVOFLOXACIN 750 MG PREMIX INJ 150 ML IV SCH (10:02)
[2017-08-12] MEDS: methylPREDNISolone SOD SUCC 40 MG/1 ML VIAL IV PUSH SCH ×2 (10:05→21:53)
[2017-08-12] MEDS: PANTOPRAZOLE SOD 40 MG DELAYED RELEASE TAB PO SCH (10:05)
[2017-08-12] MEDS: CHOLECALCIFEROL (VIT D3) 1000 UNIT TAB PO SCH (10:05)
[2017-08-12] MEDS: GABAPENTIN 300 MG CAP PO SCH ×2 (10:05→21:52)
[2017-08-12] MEDS: LEVOTHYROXINE SODIUM 50 MCG TAB PO SCH (10:06)
[2017-08-12] MEDS: FLUoxetine HCL 20 MG CAP PO SCH (10:06)
[2017-08-12] MEDS: DOCUSATE SODIUM 50 MG/SENNA 8.6 MG TAB PO SCH ×2 (10:06→21:51)
[2017-08-12] MEDS: FOLIC ACID 1 MG TAB PO SCH (10:06)
[2017-08-12] MEDS: guaiFENesin E.R. 600 MG TAB PO SCH ×2 (10:06→21:52)
[2017-08-12] MEDS: DOXEPIN HCL 50 MG CAP PO SCH ×2 (11:35→21:58)
[2017-08-12] MEDS: buPROPion HCL 100 MG SUSTAINED RELEASE TAB PO SCH ×2 (11:36→21:53)
[2017-08-12] MEDS: ALPRAZolam 0.25 MG TAB PO PRN (17:33)
--- NOTE | 2017-08-12 20:01 | HHI.PR ---
Subjective Remarks Cough and wheezing. On BIPAP today and Sat was 95 Coughing still Objective Vital Signs Date Time Temp Pulse Resp B/P (MAP) Pulse Ox O2 Delivery O2 Flow Rate FiO2 08/12/17 19:40 93 Partial Rebreather 15.00 08/12/17 18:00 113 08/12/17 17:00 128 08/12/17 16:00 114 08/12/17 15:40 98.5 118 23 135/81 (99) 94 08/12/17 15:00 112 08/12/17 14:00 114 08/12/17 13:00 118 08/12/17 12:00 120 08/12/17 11:47 90 60 08/12/17 11:39 98.1 113 39 165/91 (115) 86 08/12/17 11:00 117 08/12/17 10:00 114 08/12/17 09:00 110 08/12/17 08:00 114 08/12/17 08:00 Non-Rebreather 15.00 08/12/17 07:30 98.0 109 20 144/82 (102) 91 08/12/17 07:18 94 Partial Rebreather 15.00 08/12/17 07:00 104 08/12/17 06:00 102 08/12/17 05:03 93 Non-Rebreather 12.00 08/12/17 05:00 106 08/12/17 04:30 97 24 143/82 (102) 93 08/12/17 04:00 94 08/12/17 03:01 95 50 08/12/17 03:00 107 08/12/17 02:00 112 08/12/17 01:00 110 08/12/17 00:00 112 08/11/17 23:45 116 28 146/75 (98) 95 08/11/17 23:30 95 50 08/11/17 23:00 121 08/11/17 22:00 114 08/11/17 21:12 116 08/11/17 21:00 98.6 119 24 142/84 (103) 93 08/11/17 20:11 98 Partial Rebreather 11.00 08/11/17 20:00 Partial Non-Rebreather 11.00 08/11/17 20:00 98.7 115 28 145/67 (93) 93 I/O 08/11/17 08/11/17 08/11/17 08/12/17 08/12/17 08/12/17 07:00 15:00 23:00 07:00 15:00 23:00 Intake Total 480 ml 100 ml 1257.5 ml 740 ml 100 ml 1200 ml Output Total 900 ml 1500 ml Balance -420 ml 100 ml 1257.5 ml 740 ml 100 ml -300 ml Intake Oral 480 ml 640 ml 240 ml 700 ml IV Total 100 ml 617.5 ml 500 ml 100 ml 500 ml Output Urine Total 900 ml 1500 ml # Voids 1 2 1 # Bowel Movements 0 1 0 Result Diagram: 08/08/17 0706 08/12/17 0605 Objective Remarks GENERAL: This is a averagely built middle-aged white female who is anxious and mildly dyspneic at rest. HEENT: Head normocephalic. Pupils reactive and equal. Tongue is moist. Nasal mucosa edematous.clear.No thyroid enlargement or lymphadenopathy. CHEST: Decreased excursions. Expiratory wheezes scattered throughout both lung cabrera. Prolonged expirations.Bi basal crackles. HEART: The heart sounds are irregular, S1-S2. No definite murmur. No S3. ABDOMEN: The abdomen is protuberant and soft without masses or organomegaly or tenderness. EXTREMITIES: Mild joint deformities. The left arm is in a dressing. There is no peripheral edema. Peripheral pulses are well felt. Reflexes are 1+ with no gross motor deficits. Cranial nerves are grossly intact. SKIN: No lesions observed. Assessment and Plan Assessment and Plan IMPRESSION 1. COPD with emphysema and chronic bronchitis. 2. Cellulitis and left elbow joint infection. 3. Nicotine dependency. 4. History of rheumatoid arthritis and interstitial lung disease. 5. Fibromyalgia. Plan : 1. Cont Nebs qid , duoneb. 2. Will use BiPAP at HS 12/5 CM, 40 % FIO2 3. Cont Antibiotics. 4. BMPCBC in am. 5. Cont Symbicort 160/4.5 mcg , 2puffs bid 6. Wean To ventimask in am Perla Gonzalez MD Aug 12, 2017 20:01
[2017-08-12] MEDS: ZOLPIDEM TARTRATE 5 MG TAB PO PRN (21:58)
[2017-08-13] VITALS (31 sets, daily range): BP systolic 133–149; BP diastolic 79–88; PULSE 103–118; RESP 24–36; TEMP 97.5–98.9; O2SAT 87–96
[2017-08-13] MEDS: CEFEPIME INJ 2,000 MG in SODIUM CHLORIDE 0.9% INJ 100 ML IV SCH ×3 (02:09→18:49)
[2017-08-13] MEDS ORDERED: PHARMACY ORDERED LAB ONE (02:45)
[2017-08-13] MEDS: VANCOMYCIN INJ 1,750 MG in SODIUM CHLORID 0.9% 500 ML INJ 500 ML IV SCH (03:07)
[2017-08-13] MEDS: methylPREDNISolone SOD SUCC 40 MG/1 ML VIAL IV PUSH SCH ×3 (06:09→21:49)
[2017-08-13] MEDS: HEPARIN SODIUM - SQ 10,000 UNITS/ML VIAL SQ SCH ×3 (06:09→21:49)
--- NOTE | 2017-08-13 07:53 | HHI.PR ---
Subjective Remarks On BiPAP overnight, now on partial rebreather mask, she is dessating after talking. Says however that she feels imprpving today. Fels anxious and xanax helped. + productive cough of whitish/yellow/brownish sputum. No fever or chills.No n/v/d/c. Eating fairly well. Objective Vitals Vital Signs Date Time Temp Pulse Resp B/P (MAP) Pulse Ox O2 Delivery O2 Flow Rate FiO2 08/13/17 07:00 108 08/13/17 06:00 110 08/13/17 05:00 106 08/13/17 04:00 110 08/13/17 03:00 110 08/13/17 03:00 98.9 108 36 135/79 (97) 94 08/13/17 02:05 90 60 08/13/17 02:00 108 08/13/17 01:00 115 08/13/17 00:00 114 08/12/17 23:00 90 Bi-Pap 60 08/12/17 23:00 98.5 116 34 132/88 (103) 90 08/12/17 23:00 114 08/12/17 22:53 92 60 08/12/17 22:00 118 08/12/17 21:00 112 08/12/17 20:00 118 08/12/17 20:00 98.5 120 32 130/90 (103) 90 08/12/17 20:00 90 Partial Non-Rebreather 15.00 08/12/17 19:40 93 Partial Rebreather 15.00 08/12/17 19:00 112 08/12/17 18:00 113 08/12/17 17:00 128 08/12/17 16:00 114 08/12/17 15:40 98.5 118 23 135/81 (99) 94 08/12/17 15:00 112 08/12/17 14:00 114 08/12/17 13:00 118 08/12/17 12:00 120 08/12/17 11:47 90 60 08/12/17 11:39 98.1 113 39 165/91 (115) 86 08/12/17 11:00 117 08/12/17 10:00 114 08/12/17 09:00 110 08/12/17 08:00 114 08/12/17 08:00 Non-Rebreather 15.00 I/O 08/12/17 08/12/17 08/12/17 08/13/17 08/13/17 08/13/17 07:00 15:00 23:00 07:00 15:00 23:00 Intake Total 740 ml 100 ml 1200 ml 1180 ml Output Total 1500 ml 1350 ml Balance 740 ml 100 ml -300 ml -170 ml Intake Oral 240 ml 700 ml 480 ml IV Total 500 ml 100 ml 500 ml 700 ml Output Urine Total 1500 ml 1350 ml # Voids 1 # Bowel Movements 0 0 Result Diagram: 08/12/17 0605 Imaging Last Impressions Chest X-Ray 08/12/17 0600 Signed Impressions: Service Date/Time: Saturday, August 12, 2017 05:34 - CONCLUSION: Worsening diffuse bilateral airspace disease. Cleve Dior MD Chest CT 08/10/17 0000 Signed Impressions: Service Date/Time: Thursday, August 10, 2017 17:36 - CONCLUSION: 1. Upper lobe predominant central emphysema with upper lobe predominant diffuse interstitial and groundglass opacities. Differential considerations include developing ARDS, atypical infection, pulmonary edema, sarcoidosis, and drug induced lung disease amongst other etiologies. 2. Trace right pleural effusion. Jovi Loaiza MD Upper Extremity Ultrasound 08/07/17 1213 Signed Impressions: Service Date/Time: Monday, August 07, 2017 12:30 - CONCLUSION: Negative for deep venous thrombosis. Naveed Sage MD FACR Elbow X-Ray 08/07/17 0000 Signed Impressions: Service Date/Time: Monday, August 07, 2017 13:12 - CONCLUSION: Joint effusion, no fracture Naveed Sage MD FACR Elbow MRI 08/07/17 0000 Signed Impressions: Service Date/Time: Monday, August 07, 2017 14:11 - CONCLUSION: Presumed inflammatory process mainly involving the brachialis. The joint is suspected to be infected as well. There is no osteomyelitis as yet. Neurovascular bundle is displaced medially there are brachial bifurcation findings have been discussed with Latosha FRANCOIS on today's date. Naveed Sage MD FACR Objective Remarks GENERAL: Well-developed, well-nourished patient who is critically ill in mild respiratory distress with tachypnea on partial rebreather CARDIOVASCULAR: Tachycardic but with regular rhythm. RESPIRATORY: No accessory muscle use. Expiratory wheezes noted. Breath sounds equal bilaterally with rhonchi. GASTROINTESTINAL: Abdomen soft, non-tender, nondistended. MUSCULOSKELETAL: Extremities without clubbing, cyanosis, or edema. No obvious deformities. Left upper extremity with dry dressing NEUROLOGICAL: Awake and alert. No obvious cranial nerve deficits. Motor grossly within normal limits. Five out of 5 muscle strength in the arms and legs. Normal speech. Procedures Irrigation and debridement of left elbow A/P Problem List: (1) Joint infection ICD Code: M00.9 - Pyogenic arthritis, unspecified Status: Acute Assessment and Plan (1) Joint infection ICD Code: M00.9 - Pyogenic arthritis, unspecified Status: Acute Assessment and Plan Ms. Hollingsworth is a 57-year-old female patient with a known medical history of COPD , rheumatoid arthritis and fibromyalgia who presented to the ED with complaints of worsening left elbow swelling and pain. Acute respiratory failure secondary to COPD exacerbation with hospital-acquired pneumonia. CT shows possible ARDS versus pulmonary edema. I have transferred patient to ICU because of high likelihood of intubation and mechanical ventilation. I will add cefepime and continue IV vancomycin and Levaquin. Follow-up cultures. She will also be on nebulizations, IV steroids (for 2 more doses) and oxygen to keep saturation at least 92%. BiPAP as needed. Add acapella and EZPAP Septic arthritis left elbow status post irrigation and debridement. Culture with MRSA Continue IV vancomycin and discontinue Zosyn, pain management with oxycodone and IV morphine and wound care. Patient has been cleared for discharge by orthopedic surgery and infectious disease. Case management to assist with OP IV antibiotics via PICC Sepsis secondary to above. Rheumatoid arthritis: Hold Methotrexate, prednisone and Humira while having active infection. Hypothyroidism: Continue home Synthroid. Fibromyalgia: Continue home gabapentin. Depression: Continue home Doxepin and Bupropion. Anxiety add small dos eof xanax Hypokalemia: Status post replacement, monitor and replace as need Macrocytic anemia. B-12 and folate not low GI Prophylaxis: Protonix. DVT Prophylaxis: SCDs. Early ambulation. On subcutaneous heparin Discharge Planning Pending improvement with reparatory distress. DC when cleared by ID, f/u to the end blood cultures. Needs PICC line at DC when cleared by ID to have PICC placed. CM ff for DC plan. Cosma,Tasneem MD Aug 13, 2017 07:52
[2017-08-13] MEDS: RESP: ALBUTEROL 2.5 MG/IPRATROPIUM 0.5 MG NEB (SCH) NEB ×4 (08:16→19:37)
[2017-08-13] MEDS: SODIUM CHLORIDE 0.9% FLUSH 10 ML FLUSH IV FLUSH SCH ×5 (09:00→21:47)
[2017-08-13] MEDS: NON-FORMULARY DRUG (Mometasone-Formoterol 120 Act Inh (Dulera 120 Act Inh) 2 PUFF) INH SCH ×2 (09:00→21:00)
[2017-08-13] MEDS ORDERED: METHOTREXATE 2.5 MG TAB PO SCH (09:00)
[2017-08-13] MEDS: BUDESONIDE-FORMOTEROL 160/4.5 MCG INHALER INH SCH ×2 (09:00→21:49)
[2017-08-13] MEDS: LEVOFLOXACIN 750 MG PREMIX INJ 150 ML IV SCH (09:33)
[2017-08-13] MEDS: PANTOPRAZOLE SOD 40 MG DELAYED RELEASE TAB PO SCH (09:40)
[2017-08-13] MEDS: guaiFENesin E.R. 600 MG TAB PO SCH ×2 (09:40→21:48)
[2017-08-13] MEDS: buPROPion HCL 100 MG SUSTAINED RELEASE TAB PO SCH ×2 (09:40→21:48)
[2017-08-13] MEDS: GABAPENTIN 300 MG CAP PO SCH ×2 (09:40→21:48)
[2017-08-13] MEDS: FLUoxetine HCL 20 MG CAP PO SCH (09:40)
[2017-08-13] MEDS: FOLIC ACID 1 MG TAB PO SCH (09:41)
[2017-08-13] MEDS: DOCUSATE SODIUM 50 MG/SENNA 8.6 MG TAB PO SCH ×2 (09:41→21:47)
[2017-08-13] MEDS: DOXEPIN HCL 50 MG CAP PO SCH ×2 (09:41→21:48)
[2017-08-13] MEDS: CHOLECALCIFEROL (VIT D3) 1000 UNIT TAB PO SCH (09:41)
[2017-08-13] MEDS: LEVOTHYROXINE SODIUM 50 MCG TAB PO SCH (09:42)
[2017-08-13 10:46] LABS: BLOOD GAS BASE EXCESS 4.6 mmol/L (-2-2); BLOOD GAS CARBOXYHEMOGLOBIN 1.4 % (0-4); BLOOD GAS HCO3 28 mmol/L (22-26); BLOOD GAS O2 HGB SATURATION 90 % (90-100); BLOOD GAS OXYGEN CONTENT 17.4 Vol % (12.0-20.0); BLOOD GAS PCO2 38 mmHg (38-42); BLOOD GAS PO2 69 mmHg (61-120); BLOOD GAS TOTAL HGB 13.8 G/DL (12.0-16.0); TEMP CORR TO 98.6
[2017-08-13 10:47] LABS: CRITICAL VALUE NO; DRAW SITE RT RADIAL; LITER FLOW 15 L/M; NUMBER OF ARTERIAL PUNCTURES 2; OXYGEN DEVICE PARTIAL REBREATHER; STAT NO; ULNAR PULSE PRESENT
[2017-08-13] MEDS: ALPRAZolam 0.25 MG TAB PO PRN ×2 (12:45→21:50)
[2017-08-13] MEDS: VANCOMYCIN INJ 2,000 MG in SODIUM CHLORID 0.9% 500 ML INJ 500 ML IV SCH (16:30)
--- NOTE | 2017-08-13 19:49 | HHI.PR ---
Subjective Remarks Less Cough and wheezing. On a NRB mask today and Sat was 96 Coughing and wheezing. Objective Vital Signs Date Time Temp Pulse Resp B/P (MAP) Pulse Ox O2 Delivery O2 Flow Rate FiO2 08/13/17 19:40 93 Non-Rebreather 15.00 08/13/17 18:00 106 08/13/17 17:00 106 08/13/17 16:44 90 Partial Rebreather 15.00 08/13/17 16:00 103 08/13/17 15:00 98.6 111 30 148/87 (107) 88 08/13/17 15:00 111 08/13/17 14:00 118 08/13/17 13:00 116 08/13/17 12:00 115 08/13/17 11:47 98.1 108 24 141/79 (99) 87 08/13/17 11:00 108 08/13/17 10:00 109 08/13/17 09:00 108 08/13/17 08:17 95 Partial Rebreather 15.00 08/13/17 08:09 97.9 107 30 133/88 (103) 96 08/13/17 08:00 104 08/13/17 07:54 98 Partial Non-Rebreather 15.00 08/13/17 07:00 108 08/13/17 06:00 110 08/13/17 05:00 106 08/13/17 04:00 110 08/13/17 03:00 110 08/13/17 03:00 98.9 108 36 135/79 (97) 94 08/13/17 02:05 90 60 08/13/17 02:00 108 08/13/17 01:00 115 08/13/17 00:00 114 08/12/17 23:00 90 Bi-Pap 60 08/12/17 23:00 98.5 116 34 132/88 (103) 90 08/12/17 23:00 114 08/12/17 22:53 92 60 08/12/17 22:00 118 08/12/17 21:00 112 08/12/17 20:00 118 08/12/17 20:00 98.5 120 32 130/90 (103) 90 08/12/17 20:00 90 Partial Non-Rebreather 15.00 I/O 10/2/17 1008/12/17 08/13/17 08/13/17 08/13/17 07:00 15:00 23:00 07:00 15:00 23:00 Intake Total 740 ml 100 ml 1200 ml 1180 ml 250 ml Output Total 1500 ml 1350 ml 2000 ml Balance 740 ml 100 ml -300 ml -170 ml -1750 ml Intake Oral 240 ml 700 ml 480 ml IV Total 500 ml 100 ml 500 ml 700 ml 250 ml Output Urine Total 1500 ml 1350 ml 2000 ml # Voids 1 # Bowel Movements 0 0 Result Diagram: 08/12/17 0605 Objective Remarks GENERAL: This is a averagely built middle-aged white female who is mildly dyspneic at rest. HEENT: Head normocephalic. Pupils reactive and equal. Tongue is moist. Nasal mucosa edematous.clear.No thyroid enlargement or lymphadenopathy. CHEST: Decreased excursions. Expiratory wheezes scattered throughout both lung cabrera. Prolonged expirations.Bi basal crackles. HEART: The heart sounds are irregular, S1-S2. No definite murmur. No S3. ABDOMEN: The abdomen is protuberant and soft without masses or organomegaly or tenderness. EXTREMITIES: Mild joint deformities. The left arm is in a dressing. There is mild peripheral edema. Peripheral pulses are well felt. Reflexes are 1+ with no gross motor deficits. Cranial nerves are grossly intact. SKIN: No lesions observed. Assessment and Plan Assessment and Plan IMPRESSION 1. COPD with emphysema and chronic bronchitis. 2. Cellulitis and left elbow joint infection. 3. Nicotine dependency. 4. History of rheumatoid arthritis and interstitial lung disease. 5. Fibromyalgia. Plan : 1. Cont Nebs qid , duoneb. 2. Will use BiPAP at HS 12/5 CM, 40 % FIO2 3. Cont Antibiotics. 4. BMP ,CXR CBC in am. 5. Cont Symbicort 160/4.5 mcg , 2puffs bid 6. Wean To ventimask in am. 7. Solumedrol 40 mg IV q8h Perla Gonzalez MD Aug 13, 2017 19:49
[2017-08-14] VITALS (31 sets, daily range): BP systolic 124–169; BP diastolic 71–88; PULSE 91–114; RESP 22–31; TEMP 97.4–98.6; O2SAT 83–100
[2017-08-14] MEDS: CEFEPIME INJ 2,000 MG in SODIUM CHLORIDE 0.9% INJ 100 ML IV SCH ×3 (02:00→18:00)
[2017-08-14] MEDS: VANCOMYCIN INJ 2,000 MG in SODIUM CHLORID 0.9% 500 ML INJ 500 ML IV SCH ×2 (03:02→16:14)
[2017-08-14] MEDS: methylPREDNISolone SOD SUCC 40 MG/1 ML VIAL IV PUSH SCH ×3 (05:49→21:22)
[2017-08-14] MEDS: HEPARIN SODIUM - SQ 10,000 UNITS/ML VIAL SQ SCH ×3 (05:49→21:22)
--- NOTE | 2017-08-14 05:56 | RADRPT ---
EXAM DATE/TIME: 08/14/2017 05:28 [facility] COMPARISON: CHEST SINGLE AP, August 12, 2017, 5:34. INDICATIONS : Short of breath. MEDICAL HISTORY : Chronic obstructive pulmonary disease. SURGICAL HISTORY : Tubal ligation. ENCOUNTER: Subsequent ACUITY: 1 week PAIN SCORE: 0/10 LOCATION: Bilateral chest FINDINGS: Diffuse severe alveolar infiltrates of both lungs are about the same. No large effusion seen. No pneu mothorax. Heart size stable, within normal limits. CONCLUSION: No significant change bilateral diffuse airspace disease. Cleve Dior MD on August 14, 2017 at 5:54 Board Certified Radiologist. This report was verified electronically.
[2017-08-14 06:55] LABS: BLOOD GAS BASE EXCESS 4.2 mmol/L (-2-2); BLOOD GAS CARBOXYHEMOGLOBIN 1.7 % (0-4); BLOOD GAS HCO3 28 mmol/L (22-26); BLOOD GAS O2 HGB SATURATION 92 % (90-100); BLOOD GAS OXYGEN CONTENT 11.9 Vol % (12.0-20.0); BLOOD GAS PCO2 38 mmHg (38-42); BLOOD GAS PO2 77 mmHg (61-120); BLOOD GAS TOTAL HGB 9.2 G/DL (12.0-16.0); CRITICAL VALUE NO; TEMP CORR TO 98.6
[2017-08-14 06:56] LABS: DRAW SITE RT RADIAL; LITER FLOW 15 L/M; NUMBER OF ARTERIAL PUNCTURES 1; OXYGEN DEVICE NRB; STAT NO; ULNAR PULSE Y
[2017-08-14] MEDS: RESP: ALBUTEROL 2.5 MG/IPRATROPIUM 0.5 MG NEB (SCH) NEB ×4 (07:30→20:05)
[2017-08-14] MEDS ORDERED: hydrALAZINE HCL 10 MG TAB PO PRN (08:30)
[2017-08-14] MEDS ORDERED: ENALAPRILAT 2.5 MG/2 ML VIAL IV PUSH PRN (08:30)
--- NOTE | 2017-08-14 08:30 | HHI.PR ---
Subjective Remarks On BiPAP overnight. Still with sob and desatting when taling, Currently on partial rebreather mask. Feels chest is congested but not much coming out. Will renew nebs and add mucomyst. No fever chills. No n/v/d/c. Denies chest pain, sob n/v/d/c. Objective Vitals Vital Signs Date Time Temp Pulse Resp B/P (MAP) Pulse Ox O2 Delivery O2 Flow Rate FiO2 08/14/17 07:53 97.8 93 26 169/87 (114) 94 08/14/17 07:33 88 neb u mask 15.00 08/14/17 06:00 92 08/14/17 05:00 94 08/14/17 04:00 91 08/14/17 03:00 97.6 95 30 124/78 (93) 91 08/14/17 03:00 95 08/14/17 02:00 95 08/14/17 01:40 98 BiPAP 08/14/17 01:33 98 60 08/14/17 01:00 96 08/14/17 00:00 103 08/14/17 00:00 97.4 103 30 156/88 (110) 92 08/13/17 23:00 108 08/13/17 22:55 90 60 08/13/17 22:00 104 08/13/17 21:00 104 08/13/17 20:00 110 08/13/17 20:00 97.5 107 32 149/86 (107) 94 08/13/17 20:00 96 Partial Non-Rebreather 15.00 08/13/17 19:40 93 Non-Rebreather 15.00 08/13/17 19:00 112 08/13/17 18:00 106 08/13/17 17:00 106 08/13/17 16:44 90 Partial Rebreather 15.00 08/13/17 16:00 103 08/13/17 15:00 98.6 111 30 148/87 (107) 88 08/13/17 15:00 111 08/13/17 14:00 118 08/13/17 13:00 116 08/13/17 12:00 115 08/13/17 11:47 98.1 108 24 141/79 (99) 87 08/13/17 11:00 108 08/13/17 10:00 109 08/13/17 09:00 108 I/O 08/13/17 08/13/17 08/13/17 08/14/17 08/14/17 08/14/17 07:00 15:00 23:00 07:00 15:00 23:00 Intake Total 1180 ml 250 ml 840 ml Output Total 1350 ml 2000 ml Balance -170 ml -1750 ml 840 ml Intake Oral 480 ml 240 ml IV Total 700 ml 250 ml 600 ml Output Urine Total 1350 ml 2000 ml # Voids 2 # Bowel Movements 0 0 Result Diagram: 08/12/17 0605 Imaging Last Impressions Chest X-Ray 08/14/17 0600 Signed Impressions: Service Date/Time: Monday, August 14, 2017 05:28 - CONCLUSION: No significant change bilateral diffuse airspace disease. Cleve Dior MD Chest CT 08/10/17 0000 Signed Impressions: Service Date/Time: Thursday, August 10, 2017 17:36 - CONCLUSION: 1. Upper lobe predominant central emphysema with upper lobe predominant diffuse interstitial and groundglass opacities. Differential considerations include developing ARDS, atypical infection, pulmonary edema, sarcoidosis, and drug induced lung disease amongst other etiologies. 2. Trace right pleural effusion. Jovi Loaiza MD Upper Extremity Ultrasound 08/07/17 1213 Signed Impressions: Service Date/Time: Monday, August 07, 2017 12:30 - CONCLUSION: Negative for deep venous thrombosis. Naveed Sage MD FACR Elbow X-Ray 08/07/17 0000 Signed Impressions: Service Date/Time: Monday, August 07, 2017 13:12 - CONCLUSION: Joint effusion, no fracture Naveed Sage MD FACR Elbow MRI 08/07/17 0000 Signed Impressions: Service Date/Time: Monday, August 07, 2017 14:11 - CONCLUSION: Presumed inflammatory process mainly involving the brachialis. The joint is suspected to be infected as well. There is no osteomyelitis as yet. Neurovascular bundle is displaced medially there are brachial bifurcation findings have been discussed with Latosha FRANCOIS on today's date. Naveed Sage MD FACR Objective Remarks GENERAL: Well-developed, well-nourished patient who is critically ill in mild respiratory distress with tachypnea on partial rebreather CARDIOVASCULAR: Tachycardic but with regular rhythm. RESPIRATORY: No accessory muscle use. Expiratory wheezes noted. Breath sounds equal bilaterally with rhonchi. GASTROINTESTINAL: Abdomen soft, non-tender, nondistended. MUSCULOSKELETAL: Extremities without clubbing, cyanosis, or edema. No obvious deformities. Left upper extremity with dry dressing NEUROLOGICAL: Awake and alert. No obvious cranial nerve deficits. Motor grossly within normal limits. Five out of 5 muscle strength in the arms and legs. Normal speech. Procedures Irrigation and debridement of left elbow A/P Problem List: (1) Joint infection ICD Code: M00.9 - Pyogenic arthritis, unspecified Status: Acute Assessment and Plan Ms. Hollingsworth is a 57-year-old female patient with a known medical history of COPD , rheumatoid arthritis and fibromyalgia who presented to the ED with complaints of worsening left elbow swelling and pain. Acute respiratory failure secondary to COPD exacerbation with hospital-acquired pneumonia. CT shows possible ARDS versus pulmonary edema. I have transferred patient to ICU because of high likelihood of intubation and mechanical ventilation. I will add cefepime and continue IV vancomycin and Levaquin. Follow-up cultures. She will also be on nebulizations, IV steroids (for 2 more doses) and oxygen to keep saturation at least 92%. BiPAP as needed. Added acapella and EZPAP Renew nebs and add mucomyst. Septic arthritis left elbow status post irrigation and debridement. Culture with MRSA Continue IV vancomycin and discontinue Zosyn, pain management with oxycodone and IV morphine and wound care. Patient has been cleared for discharge by orthopedic surgery and infectious disease. Case management to assist with OP IV antibiotics via PICC Sepsis secondary to above. Rheumatoid arthritis: Hold Methotrexate, prednisone and Humira while having active infection. Hypothyroidism: Continue home Synthroid. Fibromyalgia: Continue home gabapentin. Depression: Continue home Doxepin and Bupropion. Anxiety add small dos eof xanax Hypokalemia: Status post replacement, monitor and replace as need Macrocytic anemia. B-12 and folate not low GI Prophylaxis: Protonix. DVT Prophylaxis: SCDs. Early ambulation. On subcutaneous heparin Discharge Planning Pending improvement with reparatory distress. DC when cleared by ID, f/u to the end blood cultures. Needs PICC line at DC when cleared by ID to have PICC placed. CM ff for DC plan. Tasneem Smith MD Aug 14, 2017 08:30
[2017-08-14] MEDS: NON-FORMULARY DRUG (Mometasone-Formoterol 120 Act Inh (Dulera 120 Act Inh) 2 PUFF) INH SCH ×2 (09:00→21:00)
[2017-08-14] MEDS: SODIUM CHLORIDE 0.9% FLUSH 10 ML FLUSH IV FLUSH SCH ×4 (09:00→21:00)
[2017-08-14] MEDS ORDERED: guaiFENesin E.R. 600 MG TAB PO SCH (09:00)
[2017-08-14] MEDS: LEVOFLOXACIN 750 MG PREMIX INJ 150 ML IV SCH (09:39)
[2017-08-14] MEDS: BUDESONIDE-FORMOTEROL 160/4.5 MCG INHALER INH SCH ×2 (09:51→21:00)
[2017-08-14] MEDS: FLUoxetine HCL 20 MG CAP PO SCH (09:54)
[2017-08-14] MEDS: PANTOPRAZOLE SOD 40 MG DELAYED RELEASE TAB PO SCH (09:56)
[2017-08-14] MEDS: DOXEPIN HCL 50 MG CAP PO SCH ×2 (09:56→21:00)
[2017-08-14] MEDS: CHOLECALCIFEROL (VIT D3) 1000 UNIT TAB PO SCH (09:56)
[2017-08-14] MEDS: FOLIC ACID 1 MG TAB PO SCH (09:56)
[2017-08-14] MEDS: GABAPENTIN 300 MG CAP PO SCH ×2 (09:56→21:21)
[2017-08-14] MEDS: guaiFENesin E.R. 600 MG TAB PO SCH ×2 (09:57→21:00)
[2017-08-14] MEDS: DOCUSATE SODIUM 50 MG/SENNA 8.6 MG TAB PO SCH ×2 (09:58→21:21)
[2017-08-14] MEDS: buPROPion HCL 100 MG SUSTAINED RELEASE TAB PO SCH ×2 (09:58→21:00)
[2017-08-14] MEDS: LEVOTHYROXINE SODIUM 50 MCG TAB PO SCH (09:58)
[2017-08-14 10:25] LABS: AUTOMATED NEUTROPHIL # 16.1 TH/MM3 (1.8-7.7); BASOPHIL % 0.1 % (0.0-2.0); EOSINOPHIL % 0.1 % (0.0-4.0); HEMATOCRIT 29.4 % (35.0-46.0); HEMO FLAGS DIFF FINAL; LYMPH % 2.6 % (9.0-44.0); LYMPHOCYTE # 0.5 TH/MM3 (1.0-4.8); MEAN CELL VOLUME 103.2 FL (80.0-100.0); MEAN CORPUSCULAR HEMOGLOBIN 34.2 PG (27.0-34.0); MEAN CORPUSCULAR HGB CONC 33.1 % (32.0-36.0); MONO % 5.4 % (0.0-8.0); NEUT % 91.8 % (16.0-70.0); PLATELET COUNT 409 TH/MM3 (150-450); RED BLOOD COUNT 2.85 MIL/MM3 (4.00-5.30); RED CELL DISTRIBUTION WIDTH 14.3 % (11.6-17.2); WHITE BLOOD COUNT 17.6 TH/MM3 (4.0-11.0)
[2017-08-14 10:59] LABS: BICARBONATE 30.4 MEQ/L (21.0-32.0); POTASSIUM 3.3 MEQ/L (3.5-5.1)
[2017-08-14] MEDS: RESP: ACETYLCYSTEINE 20% 30 ML NEB NEB SCH ×4 (11:59→23:28)
[2017-08-14] MEDS: ALPRAZolam 0.25 MG TAB PO PRN (12:02)
[2017-08-14] MEDS ORDERED: methylPREDNISolone SOD SUCC 40 MG/1 ML VIAL IV PUSH ONE (16:45)
[2017-08-14 17:07] LABS: BLOOD GAS BASE EXCESS 4.6 mmol/L (-2-2); BLOOD GAS CARBOXYHEMOGLOBIN 1.6 % (0-4); BLOOD GAS HCO3 28 mmol/L (22-26); BLOOD GAS METHEMOGLOBIN 2.1 % (0-2); BLOOD GAS O2 HGB SATURATION 82 % (90-100); BLOOD GAS OXYGEN CONTENT 11.3 Vol % (12.0-20.0); BLOOD GAS PCO2 38 mmHg (38-42); BLOOD GAS PO2 52 mmHg (61-120); BLOOD GAS TOTAL HGB 9.9 G/DL (12.0-16.0); TEMP CORR TO 98.6
[2017-08-14 17:08] LABS: CRITICAL VALUE YES; DRAW SITE RT RADIAL; LITER FLOW 15 L/M; NUMBER OF ARTERIAL PUNCTURES 1; OXYGEN DEVICE NRM; STAT YES; ULNAR PULSE PRESENT
[2017-08-14] MEDS ORDERED: ETOMIDATE 20 MG/10 ML VIAL ONE (18:17)
[2017-08-14] MEDS ORDERED: SUCCINYLCHOLINE CHLORIDE 200 MG/10 ML VIAL ONE (18:17)
[2017-08-14] MEDS ORDERED: PROPOFOL 1000 MG/100 ML INJ 100 ML ONE (18:34)
[2017-08-14] MEDS ORDERED: MIDAZOLAM HCL 5 MG/ML VIAL (1 ML) ONE (18:42)
--- NOTE | 2017-08-14 19:04 | HHI.PR ---
Subjective Remarks Was in distress and on 100 % FIO2 and was on BiPAP as well as a NRB mask today . and Sat was 85 Coughing and wheezing.Transferred to [facility]. Intubated and on vent support. Objective Vital Signs Date Time Temp Pulse Resp B/P (MAP) Pulse Ox O2 Delivery O2 Flow Rate FiO2 08/14/17 18:44 83 100 08/14/17 18:00 96 08/14/17 17:47 95 100 08/14/17 17:00 100 08/14/17 16:30 91 Partial Non-Rebreather 08/14/17 16:15 98.1 105 28 143/79 (100) 94 08/14/17 16:15 94 Bi-Pap 08/14/17 16:02 104 08/14/17 15:46 92 65 08/14/17 15:00 99 08/14/17 14:31 95 65 08/14/17 14:00 104 08/14/17 13:00 95 Bi-Pap 65 08/14/17 13:00 108 08/14/17 11:29 98.2 104 28 149/80 (103) 87 08/14/17 11:00 109 08/14/17 10:00 110 08/14/17 09:00 94 08/14/17 08:00 114 08/14/17 07:53 97.8 93 26 169/87 (114) 94 08/14/17 07:33 88 neb u mask 15.00 08/14/17 07:00 91 08/14/17 06:00 92 08/14/17 05:00 94 08/14/17 04:00 91 08/14/17 03:00 97.6 95 30 124/78 (93) 91 08/14/17 03:00 95 08/14/17 02:00 95 08/14/17 01:40 98 BiPAP 08/14/17 01:33 98 60 08/14/17 01:00 96 08/14/17 00:00 103 08/14/17 00:00 97.4 103 30 156/88 (110) 92 08/13/17 23:00 108 08/13/17 22:55 90 60 08/13/17 22:00 104 08/13/17 21:00 104 08/13/17 20:00 110 08/13/17 20:00 97.5 107 32 149/86 (107) 94 08/13/17 20:00 96 Partial Non-Rebreather 15.00 08/13/17 19:40 93 Non-Rebreather 15.00 I/O 08/13/17 08/13/17 08/13/17 08/14/17 08/14/17 08/14/17 07:00 15:00 23:00 07:00 15:00 23:00 Intake Total 1180 ml 250 ml 840 ml 150 ml 300 ml Output Total 1350 ml 2000 ml 800 ml Balance -170 ml -1750 ml 840 ml 150 ml -500 ml Intake Oral 480 ml 240 ml 300 ml IV Total 700 ml 250 ml 600 ml 150 ml Output Urine Total 1350 ml 2000 ml 800 ml Stool Total 0 ml # Voids 2 # Bowel Movements 0 0 Result Diagram: 08/14/17 1000 08/14/17 1000 Objective Remarks GENERAL: This is a averagely built middle-aged white female who is in distress Cyanosis noted HEENT: Head normocephalic. Pupils reactive and equal. Nasal mucosa edematous.clear.No thyroid enlargement or lymphadenopathy. CHEST: Decreased excursions. Expiratory wheezes scattered throughout both lung cabrera. Prolonged expirations.Bi basal crackles. HEART: The heart sounds are irregular, S1-S2. No definite murmur. No S3. ABDOMEN: The abdomen is protuberant and soft without masses or organomegaly or tenderness. EXTREMITIES: Mild joint deformities. There is mild peripheral edema. Peripheral pulses are well felt. Reflexes are 1+ and she is sedated. SKIN: No lesions observed. Assessment and Plan Assessment and Plan IMPRESSION 1. COPD with emphysema and chronic bronchitis. 2. Cellulitis and left elbow joint infection. 3. Nicotine dependency. 4. History of rheumatoid arthritis and interstitial lung disease. 5. Fibromyalgia. Plan : 1. Cont Nebs qid , duoneb. 2. Vent support and keep sedated. 3. Cont Antibiotics. 4. BMP ,CXR CBC in am. 5. Cont Symbicort 160/4.5 mcg , 2puffs bid 6. NG with feeds at 50 CC, jevity 7. Solumedrol 40 mg IV q8h Perla Gonzaelz MD Aug 14, 2017 19:04
--- NOTE | 2017-08-14 19:12 | HHI.PR ---
Addendum to Inpatient Note Additional Information pt seen around 1900 full note to follow X ferred to ICU intubated for progressive hypoxia afebrile + foamy ETT secretions On exam coarse BS LUE with very clean healing incision will repeat sputum clx dw Marilyn Sainz MD Aug 14, 2017 19:12
[2017-08-14] MEDS: MIDAZOLAM 100 MG/NS 100 ML DRIP Premix IV PRN (20:17)
--- NOTE | 2017-08-14 20:17 | RADRPT ---
EXAM DATE/TIME: 08/14/2017 18:59 [place] COMPARISON: CHEST SINGLE AP, August 09, 2017, 19:51. CHEST SINGLE AP, August 12, 2017, 5:34. CT THORAX W/O CONTRAST, August 10, 2017, 17:36. CHEST SINGLE AP, August 14, 2017, 5:28. INDICATIONS : Central line and ET tube placement. MEDICAL HISTORY : Chronic obstructive pulmonary disease. SURGICAL HISTORY : None. ENCOUNTER: Subsequent ACUITY: 1 day PAIN SCORE: Non-responsive. LOCATION: Bilateral chest FINDINGS: ET tube, NG tube, and right internal jugular central line are well placed. The heart size is normal. There is diffuse prominent interstitial consolidation. A significant effusion is not clearly seen. CONCLUSION: Diffuse consolidation likely representing diffuse processes such as edema or diffuse infection, or un derlying interstitial disease. Cleve Ingram MD on August 14, 2017 at 20:13 Board Certified Radiologist. This report was verified electronically.
[2017-08-14 21:15] LABS: BLOOD GAS BASE EXCESS 5.3 mmol/L (-2-2); BLOOD GAS CARBOXYHEMOGLOBIN 1.2 % (0-4); BLOOD GAS HCO3 30 mmol/L (22-26); BLOOD GAS METHEMOGLOBIN 1.9 % (0-2); BLOOD GAS O2 HGB SATURATION 93 % (90-100); BLOOD GAS OXYGEN CONTENT 12.2 Vol % (12.0-20.0); BLOOD GAS PCO2 45 mmHg (38-42); BLOOD GAS PO2 90 mmHg (61-120); BLOOD GAS TOTAL HGB 9.2 G/DL (12.0-16.0); CRITICAL VALUE NO; TEMP CORR TO 98.6
[2017-08-14 21:16] LABS: DRAW SITE RT RADIAL; FIO2 100 %; NUMBER OF ARTERIAL PUNCTURES 1; OXYGEN DEVICE VENTILATOR; STAT NO; ULNAR PULSE PRESENT
[2017-08-14] MEDS: PROPOFOL 1000 MG/100 ML IV PRN (21:25)
--- NOTE | 2017-08-14 23:06 | PD.PROCEDR ---
Procedure Note Procedure Endotracheal Intubation A time-out was completed verifying correct patient, procedure, site, positioning , and special equipment if applicable. The patient was placed in a flat position. Sedation was obtained using Etomidate 20mg. The patient was easily ventilated using an ambu bag. The [employer]/ MAC 4 BLADE was used and inserted into the oropharynx at which time there was a Grade 1 view of the vocal cords. A 8-setswana endotracheal tube was inserted and visualized going through the vocal cords. The stylette was removed. Colorimetric change was visualized on the CO2 meter. Breath sounds were heard in both lung cabrera equally. The endotracheal tube was placed at 23 cm, measured at the teeth. A chest x-ray was ordered to assess for pneumothorax and verify endotrachealtube placement. Estimated Blood Loss: 0 The patient tolerated the procedure well and there were no complications. Jerson Oro MD Aug 14, 2017 23:06
--- NOTE | 2017-08-14 23:06 | PD.CONS ---
HPI Service Critical Care Medicine Consult Requested By Primary Care Physician No Primary Care Physician History of Present Illness 57-year-old white female with a history of a longstanding COPD and rheumatoid arthritis and fibromyalgia, was admitted with pain and swelling of the left elbow. The patient apparently was out of town and tripped and fell on her elbow injuring the elbow and requiring sutures for a laceration. Subsequently she developed swelling and redness and cellulitis and the patient was then brought to the ER where she was noted to have cellulitis with an abscessed area and now was seen by orthopedics and placed on antibiotic coverage for soft tissue infection with a joint abscess. She also was hypoxic upon admission and has been placed on oxygen via nasal cannula at 3 liters and she does have a cough and her chest x-ray that was done showed acute pulmonary infiltrates. Today she was in severe respiratory distress on the [facility] floor and the rapid response was called. She was transferred immediately to ICU and was intubated shortly after arrival due to severe respiratory distress and hypoxemia. Review of Systems ROS Unobtainable patient is intubated Past Family Social History Allergies: Coded Allergies: No Known Allergies (Unverified , 08/07/17) Past Medical History 1. History of rheumatoid arthritis. 2. Interstitial lung disease. 3. History of chronic obstructive pulmonary disease. 4. History of fibromyalgia. 5. She has depression and anxiety. Past Surgical History 1. Colon resection several years ago. 2. Tubal ligation. 3. Surgery on her left knee. Reported Medications Reported Meds & Active Scripts Active Oxycodone-Acetaminophen 10-325 mg Tab 1 Tab PO Q6H PRN Epinephrine Inj 1 Mg/Ml (1 Ml) Inj 0.3 Mg SQ ONCE PRN Give with any signs of respiratory distress. Epinephrine Inj 1 Mg/Ml (1 Ml) Inj 0.3 Mg IV PUSH ONCE PRN Solu-Cortef Inj (Hydrocortisone Sodium Succinate) 250 Mg/2 Ml Inj 250 Mg IV PUSH ONCE PRN Give over 30-60 seconds. Vancomycin Inj (Vancomycin HCl) 10 Gram Inj 1,300 Mg IV Q12HR 28 Days Reported Zofran (Ondansetron HCl) 4 Mg Tab 4 Mg PO Q12HR PRN Doxepin (Doxepin HCl) 50 Mg Cap 50 Mg PO BID Zinc Gluconate 50 Mg Tab 50 Mg PO DAILY Proair Hfa 8.5 GM Inh (Albuterol Sulfate) 90 Mcg/Act Aer 1 Puff INH Q4H PRN 108 mcg/actuation Dulera 120 Act Inh (Mometasone-Formoterol 120 Act Inh) 200-5 Mcg/Act Inh 2 Puff INH BID Folic Acid 0.8 Mg Tab 1,000 Mcg PO DAILY Levothyroxine (Levothyroxine Sodium) 50 Mcg Tab 50 Mcg PO DAILY Vitamin D-1000 (Cholecalciferol) 1,000 Unit Tab 1,000 Units PO DAILY Wellbutrin Xl 24 HR (Bupropion HCl) 150 Mg Tab 150 Mg PO DAILY Wellbutrin Xl 24 HR (Bupropion HCl) 300 Mg Tab 300 Mg PO DAILY Naproxen Sodium 220 Mg Tab 300 Mg PO BID PRN Propranolol (Propranolol HCl) 60 Mg Tab 60 Mg PO Q6HR PRN Prozac (Fluoxetine HCl) 40 Mg Cap 120 Mg PO DAILY Prevacid (Lansoprazole) 30 Mg Capdr 30 Mg PO DAILY Gabapentin 600 Mg Tab 600 Mg PO HS Gabapentin 300 Mg Cap 300 Mg PO DAILY Active Ordered Medications Current Medications Medications (Trade) Dose Ordered Sig/Leon Route PRN Reason Start Time Stop Time Status Last Admin Dose Admin Clonidine (Catapres) 0.1 mg Q4H PRN PO SBP>160, DBP>90 08/07/17 16:45 Acetaminophen (Tylenol) 650 mg Q4H PRN PO TEMP > 100.4 08/07/17 16:45 Ondansetron HCl (Zofran Inj) 4 mg Q6H PRN IVP NAUSEA OR VOMITING 08/07/17 16:45 Prochlorperazine (Compazine Supp) 25 mg Q12H PRN RECTAL NAUSEA OR VOMITING 08/07/17 16:45 Zolpidem Tartrate (Ambien) 5 mg HS PRN PO INSOMNIA 08/07/17 16:45 08/12/17 21:58 Acetaminophen (Tylenol) 650 mg Q6H PRN PO PAIN SCALE 1 TO 2 08/07/17 16:45 08/11/17 21:13 Oxycodone/ Acetaminophen (Percocet 5-325 Mg) 1 tab Q6H PRN PO PAIN SCALE 3 TO 5 08/07/17 16:45 08/10/17 18:32 Oxycodone/ Acetaminophen (Percocet 10-325 Mg) 1 tab Q6H PRN PO PAIN SCALE 6 TO 10 08/07/17 16:45 08/10/17 06:35 Morphine Sulfate (Morphine Inj) 2 mg Q3H PRN IV PUSH Pain 3-5; if unable to take PO 08/07/17 16:45 Morphine Sulfate (Morphine Inj) 4 mg Q3H PRN IV PUSH Pain 6-10;if unable to take PO 08/07/17 16:45 Naloxone HCl (Narcan Inj) 0.4 mg UNSCH PRN IV PUSH SEE LABEL COMMENTS 08/07/17 16:45 Senna/Docusate Sodium (Ronit-Colace) 1 tab BID PO 08/07/17 21:00 08/14/17 21:21 Magnesium Hydroxide (Milk Of Magnesia Liq) 30 ml Q12H PRN PO MILD - MODERATE CONSTIPATION 08/07/17 16:45 Sennosides (Senokot) 17.2 mg Q12H PRN PO MODERATE - SEVERE CONSTIPATION 08/07/17 16:45 Bisacodyl (Dulcolax Supp) 10 mg DAILY PRN RECTAL SEVERE CONSITIPATION 08/07/17 16:45 Lactulose (Lactulose Liq) 30 ml DAILY PRN PO SEVERE CONSITIPATION 08/07/17 16:45 Albuterol Sulfate (Proair Hfa Inh) 1 puff Q4H PRN INH SHORTNESS OF BREATH 08/07/17 16:45 Cholecalciferol (Vitamin D3) 1,000 units DAILY PO 08/08/17 09:00 08/14/17 09:56 Doxepin HCl (SINEquan) 50 mg BID PO 08/07/17 21:00 08/14/17 09:56 Folic Acid (Folate) 1 mg DAILY PO 08/08/17 09:00 08/14/17 09:56 Gabapentin (Neurontin) 300 mg DAILY PO 08/08/17 09:00 08/14/17 09:56 Gabapentin (Neurontin) 600 mg HS PO 08/07/17 21:00 08/14/17 21:21 Levothyroxine Sodium (Synthroid) 50 mcg DAILY PO 08/08/17 09:00 08/14/17 09:58 Methotrexate (Rheumatrex) 2.5 mg Q7D PO 08/13/17 09:00 Future Hold Pantoprazole Sodium (Protonix) 40 mg DAILY PO 08/08/17 09:00 08/14/17 09:56 Non-Formulary Medication 2 puff BID INH 08/07/17 21:00 08/14/17 09:00 Ondansetron HCl (Zofran Odt) 4 mg Q12HR PRN PO NAUSEA OR VOMITING 08/07/17 16:45 Propranolol HCl (Inderal) 60 mg Q6HR PRN PO SBP>160, DBP>90 08/07/17 16:45 Guaifenesin (Mucinex Er) 600 mg BID PO 08/07/17 21:00 08/14/17 09:57 Pharmacy Profile Note 0 ml @ 0 mls/hr UNSCH OTHER 08/07/17 20:45 Bupropion HCl (Wellbutrin Sr 12 Hr) 200 mg BID PO 08/08/17 09:00 08/14/17 09:58 Morphine Sulfate (Morphine Inj) 4 mg Q3H PRN IV PUSH BREAKTHROUGH PAIN 08/08/17 13:15 08/10/17 13:12 Fluoxetine HCl (PROzac) 120 mg DAILY PO 08/08/17 17:15 08/14/17 09:54 Sodium Chloride (NS Flush) See Protocol DAILY IV FLUSH 08/10/17 09:00 08/10/17 09:40 Sodium Chloride (NS Flush) See Protocol UNSCH PRN IV FLUSH SEE PROTOCOL TABLE 08/09/17 20:00 Heparin Sodium (Porcine) (Heparin Central Flush) See Protocol DAILY IV FLUSH 08/10/17 09:00 08/11/17 08:50 Heparin Sodium (Porcine) (Heparin Central Flush) See Protocol UNSCH PRN IV FLUSH SEE PROTOCOL TABLE 08/09/17 20:00 Sodium Chloride (NS Flush) UNSCH PRN IV FLUSH SEE PROTOCOL TABLE 08/09/17 20:00 Albuterol Sulfate (Albuterol Neb) 0.63 mg Q4HR NEB PRN NEB sob 08/10/17 11:15 08/15/17 03:04 Sodium Chloride (NS Flush) 2 ml UNSCH PRN IV FLUSH FLUSH AFTER USING IV ACCESS 08/10/17 11:15 Sodium Chloride (NS Flush) 2 ml BID IV FLUSH 08/10/17 21:00 08/14/17 21:00 Levofloxacin/ Dextrose 150 ml @ 100 mls/hr Q24H IV 08/11/17 08:00 08/14/17 09:39 Budesonide/ Formoterol Fumarate (Symbicort 160-4.5 Inh) 2 puff Q12HR INH 08/10/17 21:00 08/14/17 09:51 Cefepime HCl 2000 mg/Sodium Chloride 100 ml @ 200 mls/hr Q8H IV 08/11/17 18:00 08/15/17 02:38 Heparin Sodium (Porcine) (Heparin Inj) 5,000 units Q8HR SQ 08/11/17 14:00 08/14/17 21:22 Alprazolam (Xanax) 0.125 mg Q8HR PRN PO severe anxiety 08/12/17 16:30 08/14/17 12:02 Methylprednisolone Sodium Succinate (SoluMEDROL INJ) 40 mg Q8HR IV PUSH 08/12/17 22:00 08/14/17 21:22 Vancomycin HCl 2000 mg/Sodium Chloride 520 ml @ 250 mls/hr Q12H IV 08/13/17 15:00 08/15/17 02:39 Enalaprilat (Vasotec Inj) 2.5 mg Q6H PRN IV PUSH SBP>160, DBP>90 08/14/17 08:30 08/14/17 22:18 Hydralazine HCl (Apresoline) 10 mg Q6HR PRN PO SBP>160, DBP>90 08/14/17 08:30 Albuterol/ Ipratropium (Duoneb Neb) 1 ampule Q4HR WHILE AWAKE NEB NEB 08/14/17 12:00 08/14/17 20:05 Acetylcysteine (Mucomyst 20% Neb) 2 ml Q4HR NEB NEB 08/14/17 12:00 08/15/17 03:03 Midazolam HCl 100 ml @ 2 mls/hr TITRATE PRN IV SEDATION 08/14/17 20:15 08/14/17 20:17 Propofol 100 ml @ 2.505 mls/ hr TITRATE PRN IV SEDATION 08/14/17 20:15 08/15/17 00:56 Family History No family history significant of cancer or coronary artery disease Social History The patient smoked in the past for over 30 years, half to one-pack per day. Drinks alcohol occasionally. Physical Exam Vital Signs Vital Signs Date Time Temp Pulse Resp B/P (MAP) Pulse Ox O2 Delivery O2 Flow Rate FiO2 08/14/17 22:00 92 08/14/17 20:10 99 100 08/14/17 20:00 98.6 98 31 156/71 (99) 100 08/14/17 20:00 98 08/14/17 19:25 100 08/14/17 19:00 100 Mechanical Ventilator 100 08/14/17 18:44 83 100 08/14/17 18:00 96 08/14/17 17:47 95 100 08/14/17 17:00 100 08/14/17 16:30 91 Partial Non-Rebreather 08/14/17 16:15 98.1 105 28 143/79 (100) 94 08/14/17 16:15 94 Bi-Pap 08/14/17 16:02 104 08/14/17 15:46 92 65 08/14/17 15:00 99 08/14/17 14:31 95 65 08/14/17 14:00 104 08/14/17 13:00 95 Bi-Pap 65 08/14/17 13:00 108 08/14/17 11:29 98.2 104 28 149/80 (103) 87 08/14/17 11:00 109 08/14/17 10:00 110 08/14/17 09:00 94 08/14/17 08:00 114 08/14/17 07:53 97.8 93 26 169/87 (114) 94 08/14/17 07:33 88 neb u mask 15.00 08/14/17 07:00 91 08/14/17 06:00 92 08/14/17 05:00 94 08/14/17 04:00 91 08/14/17 03:00 97.6 95 30 124/78 (93) 91 08/14/17 03:00 95 08/14/17 02:00 95 08/14/17 01:40 98 BiPAP 08/14/17 01:33 98 60 08/14/17 01:00 96 08/14/17 00:00 103 08/14/17 00:00 97.4 103 30 156/88 (110) 92 Physical Exam GENERAL: Well-nourished, well-developed patient. Sedated and intubated SKIN: Warm and dry. HEAD: Normocephalic. EYES: No scleral icterus. No injection or drainage. NECK: Supple, trachea midline. No JVD or lymphadenopathy. CARDIOVASCULAR: Regular rate and rhythm without murmurs, gallops, or rubs. RESPIRATORY: Breath sounds equal bilaterally. No accessory muscle use. GASTROINTESTINAL: Abdomen soft, non-tender, nondistended. MUSCULOSKELETAL: No cyanosis, or edema. Status post excision and drainage of left elbow. BACK: Nontender without obvious deformity. NEURO EXAM: GCS: M 6Vt E3 Mental Status: The patient is sedated and intubated Cranial Nerves: Pupils are round, reactive to light. Laboratory Laboratory Tests Test 08/14/17 06:36 08/14/17 10:00 08/14/17 17:00 08/14/17 20:50 Blood Gas Puncture Site RT RADIAL RT RADIAL RT RADIAL Blood Gas Patient Temperature 98.6 98.6 98.6 Blood Gas HCO3 28 28 30 Blood Gas Base Excess 4.2 4.6 5.3 Blood Gas Oxygen Saturation 92 82 93 Arterial Blood pH 7.47 7.48 7.43 Arterial Blood Partial Pressure CO2 38 38 45 Arterial Blood Partial Pressure O2 77 52 90 Arterial Blood Oxygen Content 11.9 11.3 12.2 Arterial Blood Carboxyhemoglobin 1.7 1.6 1.2 Arterial Blood Methemoglobin 2.0 2.1 1.9 Blood Gas Hemoglobin 9.2 9.9 9.2 Oxygen Delivery Device NRB NRM VENTILATOR Blood Gas Liter Flow 15 15 White Blood Count 17.6 Red Blood Count 2.85 Hemoglobin 9.7 Hematocrit 29.4 Mean Corpuscular Volume 103.2 Mean Corpuscular Hemoglobin 34.2 Mean Corpuscular Hemoglobin Concent 33.1 Red Cell Distribution Width 14.3 Platelet Count 409 Mean Platelet Volume 8.1 Neutrophils (%) (Auto) 91.8 Lymphocytes (%) (Auto) 2.6 Monocytes (%) (Auto) 5.4 Eosinophils (%) (Auto) 0.1 Basophils (%) (Auto) 0.1 Neutrophils # (Auto) 16.1 Lymphocytes # (Auto) 0.5 Monocytes # (Auto) 1.0 Eosinophils # (Auto) 0.0 Basophils # (Auto) 0.0 CBC Comment DIFF FINAL Differential Comment Blood Urea Nitrogen 17 Creatinine 0.62 Random Glucose 144 Calcium Level 9.1 Sodium Level 140 Potassium Level 3.3 Chloride Level 102 Carbon Dioxide Level 30.4 Anion Gap 8 Estimat Glomerular Filtration Rate 99 Magnesium Level 2.2 Blood Gas Ventilator Setting COMMENT Blood Gas Inspired Oxygen 100 Date/Time Source Procedure Growth Status 08/07/17 12:25 Blood Peripheral Aerobic Blood Culture - Final NO GROWTH IN 5 DAYS Complete 08/07/17 12:25 Blood Peripheral Anaerobic Blood Culture - Final NO GROWTH IN 5 DAYS Complete 08/13/17 10:20 Nasal Washing Influenza Types A,B Antigen (LISA) - Final NEGATIVE FOR FLU A AND B ANTIGEN.... Complete 08/07/17 19:48 Wound Elbow Fungal Smear - Final NO FUNGAL ELEMENTS SEEN. Resulted 08/07/17 19:48 Wound Elbow Fungal Culture - Preliminary NO GROWTH IN 1 WEEK Resulted Result Diagram: 08/14/17 1000 08/14/17 1000 Imaging Last 24 hours Impressions Chest X-Ray 08/14/17 0600 Signed Impressions: Service Date/Time: Monday, August 14, 2017 05:28 - CONCLUSION: No significant change bilateral diffuse airspace disease. Cleve Dior MD Assessment and Plan Assessment and Plan Respiratory failure - COPD exacerbation - Underlying emphysema - Empiric antibiotic - Follow-up cultures - IV steroid - Pulmonary following and appreciated - DuoNeb scheduled and when necessary Cellulitis and left elbow joint infection - Status post I&D - Continue antibiotics - Follow-up cultures from drainage Nicotine dependency. - Nicotine patch when necessary History of rheumatoid arthritis - And interstitial lung disease - IV steroids - Supportive care Fibromyalgia - Resume home meds when extubated - Currently on fentanyl drip DVT GI prophylaxis - Teds SCDs - Subcutaneous heparin - Tube feeds Critical Care: The total critical care time was 35 minutes. Time to perform other separately billable procedures was not included in the critical care time. Jerson Oro MD Aug 14, 2017 23:06
--- NOTE | 2017-08-14 23:08 | PD.PROCEDR ---
Procedure Note Procedure Centerline placement A time-out was completed verifying correct patient, procedure, site, positioning , and special equipment if applicable. The patient was placed in a dependent position appropriate for central line placement based on the vein to be cannulated. The patients right neck was prepped and draped in sterile fashion. 1% Lidocaine was used to anesthetize the surrounding skin area. A triple lumen 9 -Grenadian Cordis catheter was introduced into the the internal jugular vein using the Seldinger technique and under ultrasound guidance. The catheter was threaded smoothly over the guide wire and appropriate blood return was obtained. Each lumen of the catheter was evacuated of air and flushed with sterile saline. The catheter was then sutured in place to the skin and a sterile dressing applied. Perfusion to the extremity distal to the point of catheter insertion was checked and found to be adequate. Estimated Blood Loss: 1ml The patient tolerated the procedure well and there were no complications. Jerson Oro MD Aug 14, 2017 23:08
--- NOTE | 2017-08-14 23:26 | HHI.IDPN ---
Subjective Subjective Remarks delayed entry pt seen around 1900 Pt is again X ferred to ICU Pt just got intubated for progressive hypoxia she is afebrile CUrent medx; Current Medications Morphine Sulfate (Morphine Inj) 2 mg ONCE ONCE IV PUSH Last administered on 12:45; Start 08/07/17 at 12:15; Stop 08/07/17 at 12:16; Status DC Ondansetron HCl (Zofran Inj) 4 mg ONCE ONCE IVP Last administered on 12:46; Start 08/07/17 at 12:15; Stop 08/07/17 at 12:16; Status DC Sodium Chloride 1,000 ml @ 1,000 mls/hr Q1H IV Last administered on 08/07/17 12:44; Start 08/07/17 at 12:03; Stop 08/07/17 at 13:02; Status DC Sodium Chloride (NS Flush) 2 ml UNSCH PRN IV FLUSH FLUSH AFTER USING IV ACCESS ; Start 08/07/17 at 12:15; Stop 08/09/17 at 19:46; Status DC Lidocaine/ Epinephrine (Xylocaine-Epi 2%-1:100,000 Inj) 20 ml ONCE ONCE NERV BLOCK Last administered on 08/07/17 12:15; Start 08/07/17 at 12:15; Stop 08/07 at 12:16; Status DC Morphine Sulfate (Morphine Inj) 4 mg ONCE ONCE IV PUSH Last administered on 13:47; Start 08/07/17 at 13:30; Stop 08/07/17 at 13:31; Status DC Lorazepam (Ativan Inj) 1 mg ONCE ONCE IV PUSH Last administered on 08/07/17 14:04; Start 08/07/17 at 14:00; Stop 08/07/17 at 14:01; Status DC Gadodiamide (Omniscan Pf Inj) 15 ml STK-MED ONCE IVCONTRAST Last administered on 08/07/17 14:57; Start 08/07/17 at 14:57; Stop 08/07/17 at 14:58; Status DC Clonidine (Catapres) 0.1 mg Q4H PRN PO SBP>160, DBP>90; Start 08/07/17 at 16:45 Sodium Chloride 1,000 ml @ 100 mls/hr Q10H IV Last administered on 08/08/17 05:13; Start 08/07/17 at 16:34; Stop 08/08/17 at 09:00; Status DC Sodium Chloride (NS Flush) 2 ml UNSCH PRN IV FLUSH FLUSH AFTER USING IV ACCESS ; Start 08/07/17 at 16:45; Stop 08/14/17 at 16:36; Status DC Sodium Chloride (NS Flush) 2 ml BID IV FLUSH Last administered on 08/14/17 09: 39; Start 08/07/17 at 21:00; Stop 08/14/17 at 16:36; Status DC Acetaminophen (Tylenol) 650 mg Q4H PRN PO TEMP > 100.4; Start 08/07/17 at 16:45 Ondansetron HCl (Zofran Inj) 4 mg Q6H PRN IVP NAUSEA OR VOMITING; Start at 16:45 Prochlorperazine (Compazine Supp) 25 mg Q12H PRN RECTAL NAUSEA OR VOMITING; Start 08/07/17 at 16:45 Zolpidem Tartrate (Ambien) 5 mg HS PRN PO INSOMNIA Last administered on 21:58; Start 08/07/17 at 16:45 Acetaminophen (Tylenol) 650 mg Q6H PRN PO PAIN SCALE 1 TO 2 Last administered on 08/11/17 21:13; Start 08/07/17 at 16:45 Oxycodone/ Acetaminophen (Percocet 5-325 Mg) 1 tab Q6H PRN PO PAIN SCALE 3 TO 5 Last administered on 08/10/17 18:32; Start 08/07/17 at 16:45 Oxycodone/ Acetaminophen (Percocet 10-325 Mg) 1 tab Q6H PRN PO PAIN SCALE 6 TO 10 Last administered on 08/10/17 06:35; Start 08/07/17 at 16:45 Morphine Sulfate (Morphine Inj) 2 mg Q3H PRN IV PUSH Pain 3-5; if unable to take PO; Start 08/07/17 at 16:45 Morphine Sulfate (Morphine Inj) 4 mg Q3H PRN IV PUSH Pain 6-10;if unable to take PO; Start 08/07/17 at 16:45 Naloxone HCl (Narcan Inj) 0.4 mg UNSCH PRN IV PUSH SEE LABEL COMMENTS; Start at 16:45 Senna/Docusate Sodium (Ronit-Colace) 1 tab BID PO Last administered on 21:21; Start 08/07/17 at 21:00 Magnesium Hydroxide (Milk Of Magnesia Liq) 30 ml Q12H PRN PO MILD - MODERATE CONSTIPATION; Start 08/07/17 at 16:45 Sennosides (Senokot) 17.2 mg Q12H PRN PO MODERATE - SEVERE CONSTIPATION; Start 08/07/17 at 16:45 Bisacodyl (Dulcolax Supp) 10 mg DAILY PRN RECTAL SEVERE CONSITIPATION; Start at 16:45 Lactulose (Lactulose Liq) 30 ml DAILY PRN PO SEVERE CONSITIPATION; Start at 16:45 Albuterol Sulfate (Proair Hfa Inh) 1 puff Q4H PRN INH SHORTNESS OF BREATH; Start 08/07/17 at 16:45 Bupropion HCl (Wellbutrin Xl 24 Hr) 150 mg DAILY PO ; Start 08/08/17 at 09:00; Stop 08/08/17 at 09:00; Status DC Bupropion HCl (Wellbutrin Xl 24 Hr) 300 mg DAILY PO ; Start 08/08/17 at 09:00; Stop 08/08/17 at 09:00; Status DC Cholecalciferol (Vitamin D3) 1,000 units DAILY PO Last administered on 09:56; Start 08/08/17 at 09:00 Doxepin HCl (SINEquan) 50 mg BID PO Last administered on 08/14/17 09:56; Start 08/07/17 at 21:00 Folic Acid (Folate) 1 mg DAILY PO Last administered on 08/14/17 09:56; Start 08/08/17 at 09:00 Gabapentin (Neurontin) 300 mg DAILY PO Last administered on 08/14/17 09:56; Start 08/08/17 at 09:00 Gabapentin (Neurontin) 600 mg HS PO Last administered on 08/14/17 21:21; Start 08/07/17 at 21:00 Levothyroxine Sodium (Synthroid) 50 mcg DAILY PO Last administered on 09:58; Start 08/08/17 at 09:00 Methotrexate (Rheumatrex) 2.5 mg Q7D PO ; Start 08/13/17 at 09:00; Status Future Hold Fluoxetine HCl (PROzac) 120 mg DAILY PO ; Start 08/08/17 at 09:00; Stop at 17:07; Status DC Pantoprazole Sodium (Protonix) 40 mg DAILY PO Last administered on 08/14/17 09 :56; Start 08/08/17 at 09:00 Non-Formulary Medication 2 puff BID INH Last administered on 08/14/17 09:00; Start 08/07/17 at 21:00 Ondansetron HCl (Zofran Odt) 4 mg Q12HR PRN PO NAUSEA OR VOMITING; Start 08/07 at 16:45 Propranolol HCl (Inderal) 60 mg Q6HR PRN PO SBP>160, DBP>90; Start 08/07/17 at 16:45 Non-Formulary Medication 50 mg DAILY PO ; Start 08/08/17 at 09:00; Stop at 09:00; Status DC Guaifenesin (Mucinex Er) 600 mg BID PO Last administered on 08/14/17 09:57; Start 08/07/17 at 21:00 Albuterol/ Ipratropium (Duoneb Neb) 1 ampule Q4HR NEB PRN NEB SHORTNESS OF BREATH; Start 08/07/17 at 19:00; Stop 08/10/17 at 11:13; Status DC Gentamicin Sulfate (Gentamicin Inj) 240 mg STK-MED ONCE .ROUTE Last administered on 08/07/17 19:28; Start 08/07/17 at 18:51; Stop 08/07/17 at 18:52 ; Status DC Vancomycin HCl (Vancomycin Inj) 1,000 mg STK-MED ONCE .ROUTE Last administered on 08/07/17 19:49; Start 08/07/17 at 19:26; Stop 08/07/17 at 19:27; Status DC Piperacillin Sod/ Tazobactam Sod 50 ml @ 100 mls/hr Q6H IV Last administered on 08/07/17 19:51; Start 08/07/17 at 20:00; Stop 08/07/17 at 21:24; Status DC Piperacillin Sod/ Tazobactam Sod 50 ml @ 100 mls/hr NOW ONCE IV ; Start at 20:15; Stop 08/07/17 at 20:44; Status DC Morphine Sulfate (*morphine INJ PERIprocedure ONLY) 8 mg STK-MED ONCE .ROUTE Last administered on 08/07/17 20:38; Start 08/07/17 at 20:38; Stop 08/07/17 at 20:39; Status DC Pharmacy Profile Note 0 ml @ 0 mls/hr UNSCH OTHER ; Start 08/07/17 at 20:45 Piperacillin Sod/ Tazobactam Sod 50 ml @ 100 mls/hr Q8H IV Last administered on 08/09/17 04:21; Start 08/08/17 at 04:00; Stop 08/09/17 at 13:11; Status DC Morphine Sulfate (*morphine INJ PERIprocedure ONLY) 8 mg STK-MED ONCE .ROUTE Last administered on 08/07/17 20:50; Start 08/07/17 at 20:50; Stop 08/07/17 at 20:51; Status DC Morphine Sulfate (*morphine INJ PERIprocedure ONLY) 8 mg STK-MED ONCE .ROUTE Last administered on 08/07/17 21:01; Start 08/07/17 at 21:01; Stop 08/07/17 at 21:02; Status DC Miscellaneous Information ALL NURSING DEPARTME... UNSCH PRN .XX SEE LABEL COMMENTS; Start 08/07/17 at 20:36; Stop 08/08/17 at 20:35; Status DC Vancomycin HCl 1000 mg/Sodium Chloride 250 ml @ 250 mls/hr NOW ONCE IV Last administered on 08/07/17 21:55; Start 08/07/17 at 21:45; Stop 08/07/17 at 22:44 ; Status DC Vancomycin HCl 1300 mg/Sodium Chloride 513 ml @ 250 mls/hr Q12H IV Last administered on 08/09/17 10:42; Start 08/08/17 at 10:00; Stop 08/09/17 at 11:00 ; Status DC Miscellaneous Information "DRAW VANCOMYCIN TRO... ONCE .XX ; Start 08/07/17 at 21:40; Stop 08/09/17 at 12:00; Status DC Bupropion HCl (Wellbutrin Sr 12 Hr) 200 mg BID PO Last administered on 09:58; Start 08/08/17 at 09:00 Miscellaneous Information SPECIFIC LAB TO BE ANGELY... ONCE ONCE .XX Last administered on 08/09/17 09:45; Start 08/09/17 at 09:45; Stop 08/09/17 at 09:46 ; Status DC Morphine Sulfate (Morphine Inj) 4 mg Q3H PRN IV PUSH BREAKTHROUGH PAIN Last administered on 08/10/17 13:12; Start 08/08/17 at 13:15 Potassium Chloride (KCl) 40 meq ONCE ONCE PO Last administered on 08/08/17 16 :35; Start 08/08/17 at 16:30; Stop 08/08/17 at 16:31; Status DC Fluoxetine HCl (PROzac) 120 mg DAILY PO Last administered on 08/14/17 09:54; Start 08/08/17 at 17:15 Vancomycin HCl 1500 mg/Sodium Chloride 515 ml @ 257.5 mls/ hr Q12H IV Last administered on 08/10/17 21:02; Start 08/09/17 at 21:00; Stop 08/10/17 at 22:28 ; Status DC Miscellaneous Information SPECIFIC LAB TO BE ANGELY... ONCE ONCE .XX Last administered on 08/10/17 20:45; Start 08/10/17 at 20:45; Stop 08/10/17 at 20:46 ; Status DC Sodium Chloride (NS Flush) See Protocol DAILY IV FLUSH Last administered on 09:40; Start 08/10/17 at 09:00 Sodium Chloride (NS Flush) See Protocol UNSCH PRN IV FLUSH SEE PROTOCOL TABLE; Start 08/09/17 at 20:00 Heparin Sodium (Porcine) (Heparin Central Flush) See Protocol DAILY IV FLUSH Last administered on 08/11/17 08:50; Start 08/10/17 at 09:00 Heparin Sodium (Porcine) (Heparin Central Flush) See Protocol UNSCH PRN IV FLUSH SEE PROTOCOL TABLE; Start 08/09/17 at 20:00 Sodium Chloride (NS Flush) UNSCH PRN IV FLUSH SEE PROTOCOL TABLE; Start at 20:00 Albuterol Sulfate (Albuterol Neb) 0.63 mg Q6HR NEB NEB Last administered on 15:56; Start 08/10/17 at 11:15; Stop 08/11/17 at 22:31; Status DC Ipratropium Mershon (Atrovent Neb) 0.5 mg Q6HR NEB NEB Last administered on 15:56; Start 08/10/17 at 11:15; Stop 08/11/17 at 22:31; Status DC Methylprednisolone Sodium Succinate (SoluMEDROL INJ) 40 mg Q8HR IV PUSH Last administered on 08/11/17 12:30; Start 08/10/17 at 14:00; Stop 08/11/17 at 14:01 ; Status DC Albuterol Sulfate (Albuterol Neb) 0.63 mg Q4HR NEB PRN NEB sob; Start 08/10/17 at 11:15 Piperacillin Sod/ Tazobactam Sod 100 ml @ 200 mls/hr Q6H IV ; Start 08/10/17 at 11:15; Stop 08/10/17 at 11:18; Status DC Ciprofloxacin/ Dextrose 200 ml @ 200 mls/hr ONCE STAT IV Last administered on 08/10/17 11:35; Start 08/10/17 at 11:28; Stop 08/10/17 at 12:27; Status DC Ciprofloxacin/ Dextrose 200 ml @ 200 mls/hr Q12H IV ; Start 08/10/17 at 21:00; Stop 08/10/17 at 21:00; Status DC Sodium Chloride (NS Flush) 2 ml UNSCH PRN IV FLUSH FLUSH AFTER USING IV ACCESS ; Start 08/10/17 at 11:15 Sodium Chloride (NS Flush) 2 ml BID IV FLUSH Last administered on 08/14/17 21: 00; Start 08/10/17 at 21:00 Levofloxacin/ Dextrose 150 ml @ 100 mls/hr Q24H IV Last administered on 09:39; Start 08/11/17 at 08:00 Budesonide/ Formoterol Fumarate (Symbicort 160-4.5 Inh) 2 puff Q12HR INH Last administered on 08/14/17 09:51; Start 08/10/17 at 21:00 Albuterol/ Ipratropium (Duoneb Neb) 1 ampule QID NEB NEB Last administered on 08/14/17 07:30; Start 08/10/17 at 20:00; Stop 08/14/17 at 08:27; Status DC Vancomycin HCl 1750 mg/Sodium Chloride 517.5 ml @ 250 mls/hr Q12H IV ; Start 08/11/17 at 09:00; Stop 08/11/17 at 14:26; Status DC Miscellaneous Information SPECIFIC LAB TO BE DRAWN:VANCO TROUGH DATE TO BE DR... ONCE ONCE .XX Last administered on 08/13/17 02:45; Start 08/13/17 at 02 :45; Stop 08/13/17 at 02:46; Status DC Cefepime HCl 2000 mg/Sodium Chloride 100 ml @ 200 mls/hr Q8H IV Last administered on 08/14/17 11:17; Start 08/11/17 at 18:00 Cefepime HCl 2000 mg/Sodium Chloride 100 ml @ 200 mls/hr ONCE ONCE IV Last administered on 08/11/17 12:30; Start 08/11/17 at 12:00; Stop 08/11/17 at 12:29 ; Status DC Heparin Sodium (Porcine) (Heparin Inj) 5,000 units Q8HR SQ Last administered on 08/14/17 21:22; Start 08/11/17 at 14:00 Vancomycin HCl 1750 mg/Sodium Chloride 517.5 ml @ 250 mls/hr Q12H IV Last administered on 08/13/17 03:07; Start 08/11/17 at 15:00; Stop 08/13/17 at 09:00 ; Status DC Methylprednisolone Sodium Succinate (SoluMEDROL INJ) 40 mg Q12HR IV PUSH Last administered on 08/12/17 10:05; Start 08/11/17 at 21:00; Stop 08/12/17 at 19:58 ; Status DC Alprazolam (Xanax) 0.125 mg Q8HR PRN PO severe anxiety Last administered on 12:02; Start 08/12/17 at 16:30 Methylprednisolone Sodium Succinate (SoluMEDROL INJ) 40 mg Q8HR IV PUSH Last administered on 08/14/17 21:22; Start 08/12/17 at 22:00 Vancomycin HCl 2000 mg/Sodium Chloride 520 ml @ 250 mls/hr Q12H IV Last administered on 08/14/17 16:14; Start 08/13/17 at 15:00 Miscellaneous Information SPECIFIC LAB TO BE DRAWN:VANCOMYCIN TROUGH DATE TO... ONCE ONCE .XX ; Start 08/15/17 at 02:45; Stop 08/15/17 at 02:46 Enalaprilat (Vasotec Inj) 2.5 mg Q6H PRN IV PUSH SBP>160, DBP>90 Last administered on 08/14/17 22:18; Start 08/14/17 at 08:30 Hydralazine HCl (Apresoline) 10 mg Q6HR PRN PO SBP>160, DBP>90; Start 08/14/17 at 08:30 Albuterol/ Ipratropium (Duoneb Neb) 1 ampule Q4HR WHILE AWAKE NEB NEB Last administered on 08/14/17 20:05; Start 08/14/17 at 12:00 Acetylcysteine (Mucomyst 20% Neb) 2 ml Q4HR NEB NEB Last administered on 20:05; Start 08/14/17 at 12:00 Guaifenesin (Mucinex Er) 600 mg BID PO ; Start 08/14/17 at 09:00; Status Cancel Methylprednisolone Sodium Succinate (SoluMEDROL INJ) 40 mg ONCE ONCE IV PUSH Last administered on 08/14/17 17:24; Start 08/14/17 at 16:45; Stop 08/14/17 at 16:46; Status DC Etomidate (Amidate Inj) 20 mg STK-MED ONCE .ROUTE Last administered on 18:17; Start 08/14/17 at 18:17; Stop 08/14/17 at 18:18; Status DC Succinylcholine Chloride (Quelicin Inj) 200 mg STK-MED ONCE .ROUTE Last administered on 08/14/17 18:17; Start 08/14/17 at 18:17; Stop 08/14/17 at 18:18 ; Status DC Propofol 100 ml @ As Directed STK-MED ONCE .ROUTE Last administered on 18:34; Start 08/14/17 at 18:34; Stop 08/14/17 at 18:35; Status DC Fentanyl Citrate (fentaNYL INJ) 100 mcg STK-MED ONCE .ROUTE Last administered on 08/14/17 18:42; Start 08/14/17 at 18:42; Stop 08/14/17 at 18:43; Status DC Midazolam HCl (Versed Inj) 5 mg STK-MED ONCE .ROUTE Last administered on 18:42; Start 08/14/17 at 18:42; Stop 08/14/17 at 18:43; Status DC Midazolam HCl 100 ml @ 2 mls/hr TITRATE PRN IV SEDATION Last administered on 20:17; Start 08/14/17 at 20:15 Propofol 100 ml @ 2.505 mls/ hr TITRATE PRN IV SEDATION Last administered on 08/14/17 21:25; Start 08/14/17 at 20:15 Antibiotics cefepime l;evaquine vancomycin Allergies: Coded Allergies: No Known Allergies (Unverified , 08/07/17) Objective . Vital Signs Date Time Temp Pulse Resp B/P (MAP) Pulse Ox O2 Delivery O2 Flow Rate FiO2 08/14/17 22:00 92 08/14/17 20:10 99 100 08/14/17 20:00 98.6 98 31 156/71 (99) 100 08/14/17 20:00 100 08/14/17 20:00 98 08/14/17 19:25 100 08/14/17 19:00 100 Mechanical Ventilator 100 08/14/17 18:44 83 100 08/14/17 18:00 96 08/14/17 17:47 95 100 08/14/17 17:00 100 08/14/17 16:30 91 Partial Non-Rebreather 08/14/17 16:15 98.1 105 28 143/79 (100) 94 08/14/17 16:15 94 Bi-Pap 08/14/17 16:02 104 08/14/17 15:46 92 65 08/14/17 15:00 99 08/14/17 14:31 95 65 08/14/17 14:00 104 08/14/17 13:00 95 Bi-Pap 65 08/14/17 13:00 108 08/14/17 11:29 98.2 104 28 149/80 (103) 87 08/14/17 11:00 109 08/14/17 10:00 110 08/14/17 09:00 94 08/14/17 08:00 114 08/14/17 07:53 97.8 93 26 169/87 (114) 94 08/14/17 07:33 88 neb u mask 15.00 08/14/17 07:00 91 08/14/17 06:00 92 08/14/17 05:00 94 08/14/17 04:00 91 08/14/17 03:00 97.6 95 30 124/78 (93) 91 08/14/17 03:00 95 08/14/17 02:00 95 08/14/17 01:40 98 BiPAP 08/14/17 01:33 98 60 08/14/17 01:00 96 08/14/17 00:00 103 08/14/17 00:00 97.4 103 30 156/88 (110) 92 08/14/17 08/14/17 08/15/17 15:00 23:00 07:00 Intake Total 150 ml 300 ml Output Total 800 ml Balance 150 ml -500 ml Intake Oral 300 ml IV Total 150 ml Output Urine Total 800 ml Stool Total 0 ml . Laboratory Tests Test 08/14/17 10:00 White Blood Count 17.6 TH/MM3 Red Blood Count 2.85 MIL/MM3 Hemoglobin 9.7 GM/DL Hematocrit 29.4 % Mean Corpuscular Volume 103.2 FL Mean Corpuscular Hemoglobin 34.2 PG Mean Corpuscular Hemoglobin Concent 33.1 % Red Cell Distribution Width 14.3 % Platelet Count 409 TH/MM3 Mean Platelet Volume 8.1 FL Neutrophils (%) (Auto) 91.8 % Lymphocytes (%) (Auto) 2.6 % Monocytes (%) (Auto) 5.4 % Eosinophils (%) (Auto) 0.1 % Basophils (%) (Auto) 0.1 % Neutrophils # (Auto) 16.1 TH/MM3 Lymphocytes # (Auto) 0.5 TH/MM3 Monocytes # (Auto) 1.0 TH/MM3 Eosinophils # (Auto) 0.0 TH/MM3 Basophils # (Auto) 0.0 TH/MM3 CBC Comment DIFF FINAL Differential Comment Laboratory Tests Test 08/14/17 10:00 Blood Urea Nitrogen 17 MG/DL Creatinine 0.62 MG/DL Random Glucose 144 MG/DL Calcium Level 9.1 MG/DL Sodium Level 140 MEQ/L Potassium Level 3.3 MEQ/L Chloride Level 102 MEQ/L Carbon Dioxide Level 30.4 MEQ/L Anion Gap 8 MEQ/L Estimat Glomerular Filtration Rate 99 ML/MIN Magnesium Level 2.2 MG/DL Microbiology Date/Time Source Procedure Growth Status 08/13/17 10:20 Nasal Washing Influenza Types A,B Antigen (LISA) - Final NEGATIVE FOR FLU A AND B ANTIGEN.... Complete Imaging Last Impressions Chest X-Ray 08/14/17 0600 Signed Impressions: Service Date/Time: Monday, August 14, 2017 05:28 - CONCLUSION: No significant change bilateral diffuse airspace disease. Cleve Dior MD Chest CT 08/10/17 0000 Signed Impressions: Service Date/Time: Thursday, August 10, 2017 17:36 - CONCLUSION: 1. Upper lobe predominant central emphysema with upper lobe predominant diffuse interstitial and groundglass opacities. Differential considerations include developing ARDS, atypical infection, pulmonary edema, sarcoidosis, and drug induced lung disease amongst other etiologies. 2. Trace right pleural effusion. Jovi Loaiza MD Upper Extremity Ultrasound 08/07/17 1213 Signed Impressions: Service Date/Time: Monday, August 07, 2017 12:30 - CONCLUSION: Negative for deep venous thrombosis. Naveed Sage MD FACR Elbow X-Ray 08/07/17 0000 Signed Impressions: Service Date/Time: Monday, August 07, 2017 13:12 - CONCLUSION: Joint effusion, no fracture Naveed Sage MD FACR Elbow MRI 08/07/17 0000 Signed Impressions: Service Date/Time: Monday, August 07, 2017 14:11 - CONCLUSION: Presumed inflammatory process mainly involving the brachialis. The joint is suspected to be infected as well. There is no osteomyelitis as yet. Neurovascular bundle is displaced medially there are brachial bifurcation findings have been discussed with Latosha FRANCOIS on today's date. Naveed Sage MD FACR Physical Exam CONSTITUTIONAL/GENERAL: This is an adequately nourished patient, in no apparent distress. TUBES/LINES/DRAINS: SKIN: No jaundice, rashes, or lesions. CARDIOVASCULAR: Regular rate and rhythm without murmurs, gallops, or rubs. RESPIRATORY/CHEST: Symmetric, unlabored respirations. Fine crackles to auscultation. On exam coarse BS + foamy ETT secretions GASTROINTESTINAL: Abdomen soft, non-tender, nondistended. MUSCULOSKELETAL: Extremities without clubbing, cyanosis, or edema. No joint tenderness or effusion noted. No calf tenderness. No mottling or clubbing. LUE with very clean healing incision w/o erythema or edema no edema, no erythema fingers free of neurovascular deficits No ascending cellulitis, lymphangitis or ipsilateral lymphadenopathy NEUROLOGICAL: sedated, unresponsive PSYCHIATRIC: unable to assess Assessment & Plan Remarks Assessment and Plan Septic arthitis L elbow with deep abscess L brachialis muscle - growing MRSA sp I+D POD #1 New issue : resp infussificency CT with Upper lobe predominant central emphysema with upper lobe predominant diffuse interstitial and groundglass opacities ? atypical PNA Severe leukocytosis Rec's: cont cefepime, levaquine obtain ETT sputum clx cont vancomycin x 4 weeks Marilyn Day RN, MD Aug 14, 2017 23:26
[2017-08-14] MEDS: RESP: ALBUTEROL 0.63 MG/3 ML NEB (PRN) NEB (23:28)
[2017-08-15] VITALS (17 sets, daily range): BP systolic 124–141; BP diastolic 57–71; PULSE 84–101; RESP 24–32; TEMP 98.5–99.7; O2SAT 93–100
[2017-08-15] MEDS: PROPOFOL 1000 MG/100 ML IV PRN ×6 (00:56→23:56)
[2017-08-15] MEDS: CEFEPIME INJ 2,000 MG in SODIUM CHLORIDE 0.9% INJ 100 ML IV SCH ×3 (02:38→18:00)
[2017-08-15] MEDS: VANCOMYCIN INJ 2,000 MG in SODIUM CHLORID 0.9% 500 ML INJ 500 ML IV SCH ×2 (02:39→16:05)
[2017-08-15] MEDS ORDERED: PHARMACY ORDERED LAB ONE (02:45)
[2017-08-15] MEDS: RESP: ACETYLCYSTEINE 20% 30 ML NEB NEB SCH ×5 (03:03→19:43)
[2017-08-15] MEDS: RESP: ALBUTEROL 0.63 MG/3 ML NEB (PRN) NEB (03:04)
[2017-08-15 05:05] LABS: AUTOMATED NEUTROPHIL # 16.3 TH/MM3 (1.8-7.7); BASOPHIL % 0.2 % (0.0-2.0); HEMATOCRIT 27.9 % (35.0-46.0); LYMPH % 2.4 % (9.0-44.0); LYMPHOCYTE # 0.4 TH/MM3 (1.0-4.8); MEAN CELL VOLUME 103.5 FL (80.0-100.0); MEAN CORPUSCULAR HEMOGLOBIN 33.4 PG (27.0-34.0); MEAN CORPUSCULAR HGB CONC 32.2 % (32.0-36.0); MONO % 5.9 % (0.0-8.0); NEUT % 91.5 % (16.0-70.0); PLATELET COUNT 259 TH/MM3 (150-450); RED CELL DISTRIBUTION WIDTH 14.8 % (11.6-17.2); WHITE BLOOD COUNT 17.8 TH/MM3 (4.0-11.0)
[2017-08-15] MEDS: methylPREDNISolone SOD SUCC 40 MG/1 ML VIAL IV PUSH SCH ×3 (05:28→22:05)
[2017-08-15] MEDS: HEPARIN SODIUM - SQ 10,000 UNITS/ML VIAL SQ SCH ×3 (05:28→22:05)
[2017-08-15 05:30] LABS: HEMO FLAGS AUTO DIFF
[2017-08-15 05:33] LABS: BICARBONATE 31.8 MEQ/L (21.0-32.0); MAGNESIUM 2.1 MG/DL (1.5-2.5); POTASSIUM 3.4 MEQ/L (3.5-5.1)
--- NOTE | 2017-08-15 08:02 | HHI.CCPN ---
Subjective Remarks/Hospital Course 57-year-old white female with a history of a longstanding COPD and rheumatoid arthritis and fibromyalgia, was admitted with pain and swelling of the left elbow. The patient apparently was out of town and tripped and fell on her elbow injuring the elbow and requiring sutures for a laceration. Subsequently she developed swelling and redness and cellulitis and the patient was then brought to the ER where she was noted to have cellulitis with an abscessed area and now was seen by orthopedics and placed on antibiotic coverage for soft tissue infection with a joint abscess. She also was hypoxic upon admission and has been placed on oxygen via nasal cannula at 3 liters and she does have a cough and her chest x-ray that was done showed acute pulmonary infiltrates. Today she was in severe respiratory distress on the [facility] floor and the rapid response was called. She was transferred immediately to ICU and was intubated shortly after arrival due to severe respiratory distress and hypoxemia. 10: Gas exchange impaired, diffuse infiltrates persist. Objective Vital Signs Date Time Temp Pulse Resp B/P (MAP) Pulse Ox O2 Delivery O2 Flow Rate FiO2 08/15/17 07:29 93 80 08/15/17 06:00 84 08/15/17 04:00 98.5 24 138/71 (93) 08/14/17 19:00 Mechanical Ventilator 08/14/17 07:33 15.00 Intake and Output 08/15/17 08/15/17 08/16/17 08:00 16:00 00:00 Intake Total 1045 ml Output Total 625 ml Balance 420 ml Result Diagram: 08/15/17 0450 08/15/17 0450 Other Results Microbiology Date/Time Source Procedure Growth Status 08/13/17 10:20 Nasal Washing Influenza Types A,B Antigen (LISA) - Final NEGATIVE FOR FLU A AND B ANTIGEN.... Complete Laboratory Tests Test 08/14/17 17:00 08/14/17 20:50 Blood Gas Puncture Site RT RADIAL RT RADIAL Blood Gas Patient Temperature 98.6 98.6 Blood Gas HCO3 28 mmol/L (22-26) 30 mmol/L (22-26) Blood Gas Base Excess 4.6 mmol/L (-2-2) 5.3 mmol/L (-2-2) Blood Gas Oxygen Saturation 82 % (90-100) 93 % (90-100) Arterial Blood pH 7.48 (7.380-7.420) 7.43 (7.380-7.420) Arterial Blood Partial Pressure CO2 38 mmHg (38-42) 45 mmHg (38-42) Arterial Blood Partial Pressure O2 52 mmHg (61-120) 90 mmHg (61-120) Arterial Blood Oxygen Content 11.3 Vol % (12.0-20.0) 12.2 Vol % (12.0-20.0) Arterial Blood Carboxyhemoglobin 1.6 % (0-4) 1.2 % (0-4) Arterial Blood Methemoglobin 2.1 % (0-2) 1.9 % (0-2) Blood Gas Hemoglobin 9.9 G/DL (12.0-16.0) 9.2 G/DL (12.0-16.0) Oxygen Delivery Device NRM VENTILATOR Blood Gas Liter Flow 15 L/M Blood Gas Ventilator Setting COMMENT Blood Gas Inspired Oxygen 100 % Imaging Last 24 hours Impressions Chest X-Ray 08/14/17 0600 Signed Impressions: Service Date/Time: Monday, August 14, 2017 05:28 - CONCLUSION: No significant change bilateral diffuse airspace disease. Cleve Dior MD Objective Remarks GENERAL: Ill-appearing woman. Sedated and intubated SKIN: Warm and dry. HEAD: Normocephalic. EYES: No scleral icterus. No injection or drainage. NECK: Supple, trachea midline. Orally intubated. CARDIOVASCULAR: Regular rate and rhythm without murmurs, gallops, or rubs. No JVD. RESPIRATORY: Breath sounds equal bilaterally. No accessory muscle use. Diffuse crackles. GASTROINTESTINAL: Abdomen soft, non-tender, nondistended. BS active. MUSCULOSKELETAL: No cyanosis, or edema. Status post excision and drainage of left elbow. Incision clean, dry. NEURO EXAM: Moves 4 limbs. WENDY. Procedures Irrigation and debridement of left elbow A/P Assessment and Plan Respiratory failure - COPD exacerbation - Underlying emphysema - Empiric antibiotic - Follow-up cultures - IV steroid - Pulmonary following and appreciated - DuoNeb scheduled and when necessary Cellulitis and left elbow joint infection - Status post I&D -> MRSA - Continue antibiotics - Follow-up cultures from drainage Nicotine dependency. - Nicotine patch when necessary History of rheumatoid arthritis - And interstitial lung disease - IV steroids - Supportive care Fibromyalgia - Resume home meds when extubated - Currently on fentanyl drip DVT GI prophylaxis - Teds SCDs - Subcutaneous heparin - Tube feeds Overall impression: Critically ill with hypoxemic respiratory failure and severe O2 gradient. Diffuse interstitial lung process with superimposed infiltrates. Unable to wean from ventilator. Critical care 38 mins Jai Ludwig MD Aug 15, 2017 08:02
[2017-08-15 08:12] LABS: BANDS 8 % (0-6); METAMYELOCYTES 1 % (0-1); NEUTROPHIL # MANUAL DIFF 16.2 TH/MM3 (1.8-7.7); PLATELET ESTIMATE SMEAR NORMAL (NORMAL); POLYS (SEG NEUTROPHILS) 82 % (16-70); WBC DIFF SAMPLE 100
[2017-08-15 08:13] LABS: PLATELET MORPHOLOGY NORMAL (NORMAL); SCAN/DIFF FINAL DIFF MANUAL
[2017-08-15] MEDS: RESP: ALBUTEROL 2.5 MG/IPRATROPIUM 0.5 MG NEB (SCH) NEB ×4 (08:21→19:42)
[2017-08-15] MEDS: PANTOPRAZOLE SOD 40 MG DELAYED RELEASE TAB PO SCH (09:00)
[2017-08-15] MEDS: NON-FORMULARY DRUG (Mometasone-Formoterol 120 Act Inh (Dulera 120 Act Inh) 2 PUFF) INH SCH ×2 (09:00→20:12)
[2017-08-15] MEDS: BUDESONIDE-FORMOTEROL 160/4.5 MCG INHALER INH SCH ×2 (09:00→20:12)
[2017-08-15] MEDS: SODIUM CHLORIDE 0.9% FLUSH 10 ML FLUSH IV FLUSH SCH ×3 (09:00→20:12)
[2017-08-15] MEDS: FOLIC ACID 1 MG TAB PO SCH (09:30)
[2017-08-15] MEDS: guaiFENesin E.R. 600 MG TAB PO SCH ×2 (09:30→20:12)
[2017-08-15] MEDS: GABAPENTIN 300 MG CAP PO SCH ×2 (09:30→20:12)
[2017-08-15] MEDS: CHOLECALCIFEROL (VIT D3) 1000 UNIT TAB PO SCH (09:30)
[2017-08-15] MEDS: LEVOTHYROXINE SODIUM 50 MCG TAB PO SCH (09:30)
[2017-08-15] MEDS: FLUoxetine HCL 20 MG CAP PO SCH (09:30)
[2017-08-15] MEDS: DOCUSATE SODIUM 50 MG/SENNA 8.6 MG TAB PO SCH ×2 (09:30→20:12)
[2017-08-15] MEDS: LEVOFLOXACIN 750 MG PREMIX INJ 150 ML IV SCH (09:33)
[2017-08-15] MEDS: buPROPion HCL 100 MG SUSTAINED RELEASE TAB PO SCH ×2 (10:19→20:12)
[2017-08-15] MEDS: DOXEPIN HCL 50 MG CAP PO SCH ×2 (10:19→20:12)
[2017-08-15] MEDS: MIDAZOLAM 100 MG/NS 100 ML DRIP Premix IV PRN (10:19)
--- NOTE | 2017-08-15 11:26 | PD.OP ---
cc: Ethel Ferro MD Operative Report left septic elbow and deep abscess Postoperative Diagnosis: same Procedure: 1. irrigation and debridement left septic elbow 2. drainage of deep abscess left arm Anesthesia: General Surgeon: Ethel Ferro Teleservices Representative(s): none Operation and Findings: Anesthesia: General EBL: Minimal Complications: None Specimens: Cultures 2 Indications: Patient is a 57-year-old female who sustained a fall approximately 3 weeks prior to presentation. At that time patient did seek medical treatment in [place] at an ED, and had sutures placed over an abrasion at her left elbow. Patient states that about 10 days after injury, she noticed increased swelling and pain and redness and again it went to an ER to be evaluated. Patient was placed on Keflex at that time but over the last couple of days has noticed increased swelling and significant amount of discomfort in her left elbow and arm. An MRI was performed while the patient was in [place] ED, which showed significant joint effusion and deep fluid collections in her left arm deep to brachialis. Risks benefits and alternatives of nonoperative versus operative intervention were discussed with the patient. Given her exam findings there is significant concern for septic arthritis any deep abscess. Therefore patient was consented for irrigation and debridement of left elbow and drainage of deep abscess. Operation: Patient was taken back to the operating room and placed supine on operating room table. General anesthesia then ensued. Patient was prepped and draped in standard sterile fashion. Preoperative antibiotics were held to obtain intraoperative cultures. A timeout was performed to identify the correct patient, procedure, side and site. a posterior lateral incision was made about the left elbow, with sharp dissection through subcutaneous tissue. The extensor muscles were split to allow approach to the lateral aspect of the elbow and the LUCL. a longitudinal incision was made just anterior to the LUCL in the joint capsule. Immediately purulence was encountered. Cultures were then taken. At this time antibiotics in the form of vancomycin and Zosyn were administered to the patient by anesthesia. The elbow was ranged and irrigation with gentamicin was used to thoroughly wash the joint. after several liters of saline was used to irrigate the elbow joint, I then turned my attention proximally to the elbow to the brachialis muscle. Deep to this muscle just anterior to the humerus a pocket of fluid was encountered which again appeared to be purulent. This was thoroughly irrigated and a REBEKA drain was placed.at this point they do not appear to be any other fluid collections and the elbow was closed with antibiotic coated Vicryl and nylon sutures. Sterile dressings were placed. Patient was awoken from general anesthesia without complication. Findings: significant fluid from the left joint and a deep fluid collection anterior to distal humerus, which appears to be purulent Plan: Patient will likely require several weeks of IV antibiotics pending cultures. Patient will need to work with occupational therapy on aggressive range of motion to avoid stiffness. Ethel Ferro MD Aug 15, 2017 10:29
--- NOTE | 2017-08-15 13:21 | HHI.IDPN ---
Subjective Subjective Remarks pt remains on vent was on 100%, now down to 70% No ETT secretions afebrile, occ low grade Antibiotics cefepime l;evaquine vancomycin Allergies: Coded Allergies: No Known Allergies (Unverified , 08/07/17) Objective . Vital Signs Date Time Temp Pulse Resp B/P (MAP) Pulse Ox O2 Delivery O2 Flow Rate FiO2 08/15/17 12:12 98 70 08/15/17 12:10 97 Mechanical Ventilator 70 08/15/17 12:00 99.7 93 28 124/58 (80) 99 08/15/17 12:00 93 08/15/17 12:00 70 08/15/17 10:00 101 08/15/17 08:00 95 08/15/17 08:00 99.0 95 24 139/70 (93) 95 08/15/17 08:00 80 08/15/17 07:30 94 Mechanical Ventilator 80 08/15/17 07:29 93 80 08/15/17 07:00 100 Mechanical Ventilator 100 08/15/17 06:00 84 08/15/17 04:00 88 08/15/17 04:00 100 100 08/15/17 04:00 100 08/15/17 04:00 98.5 88 24 138/71 (93) 100 08/15/17 02:00 90 08/15/17 00:00 92 08/15/17 00:00 100 08/15/17 00:00 100 100 08/15/17 00:00 98.5 92 24 141/57 (85) 100 08/14/17 22:00 92 08/14/17 20:10 99 100 08/14/17 20:00 98.6 98 31 156/71 (99) 100 08/14/17 20:00 100 08/14/17 20:00 98 08/14/17 19:25 100 08/14/17 19:00 100 Mechanical Ventilator 100 08/14/17 18:44 83 100 08/14/17 18:00 96 08/14/17 17:47 95 100 08/14/17 17:00 100 08/14/17 16:30 91 Partial Non-Rebreather 08/14/17 16:15 98.1 105 28 143/79 (100) 94 08/14/17 16:15 94 Bi-Pap 08/14/17 16:02 104 08/14/17 15:46 92 65 08/14/17 15:00 99 08/14/17 14:31 95 65 08/14/17 14:00 104 . Laboratory Tests Test 08/14/17 10:00 08/15/17 04:50 White Blood Count 17.6 TH/MM3 17.8 TH/MM3 Red Blood Count 2.85 MIL/MM3 2.70 MIL/MM3 Hemoglobin 9.7 GM/DL 9.0 GM/DL Hematocrit 29.4 % 27.9 % Mean Corpuscular Volume 103.2 FL 103.5 FL Mean Corpuscular Hemoglobin 34.2 PG 33.4 PG Mean Corpuscular Hemoglobin Concent 33.1 % 32.2 % Red Cell Distribution Width 14.3 % 14.8 % Platelet Count 409 TH/MM3 259 TH/MM3 Mean Platelet Volume 8.1 FL 7.8 FL Neutrophils (%) (Auto) 91.8 % 91.5 % Lymphocytes (%) (Auto) 2.6 % 2.4 % Monocytes (%) (Auto) 5.4 % 5.9 % Eosinophils (%) (Auto) 0.1 % 0.0 % Basophils (%) (Auto) 0.1 % 0.2 % Neutrophils # (Auto) 16.1 TH/MM3 16.3 TH/MM3 Lymphocytes # (Auto) 0.5 TH/MM3 0.4 TH/MM3 Monocytes # (Auto) 1.0 TH/MM3 1.1 TH/MM3 Eosinophils # (Auto) 0.0 TH/MM3 0.0 TH/MM3 Basophils # (Auto) 0.0 TH/MM3 0.0 TH/MM3 CBC Comment DIFF FINAL AUTO DIFF Differential Comment FINAL DIFF MANUAL Differential Total Cells Counted 100 Neutrophils % (Manual) 82 % Band Neutrophils % 8 % Lymphocytes % 4 % Monocytes % 5 % Neutrophils # (Manual) 16.2 TH/MM3 Metamyelocytes 1 % Atypical Lymphocytes % Platelet Estimate NORMAL Platelet Morphology Comment NORMAL Laboratory Tests Test 08/14/17 10:00 08/15/17 04:50 Blood Urea Nitrogen 17 MG/DL 17 MG/DL Creatinine 0.62 MG/DL 0.57 MG/DL Random Glucose 144 MG/DL 146 MG/DL Calcium Level 9.1 MG/DL 8.5 MG/DL Sodium Level 140 MEQ/L 141 MEQ/L Potassium Level 3.3 MEQ/L 3.4 MEQ/L Chloride Level 102 MEQ/L 103 MEQ/L Carbon Dioxide Level 30.4 MEQ/L 31.8 MEQ/L Anion Gap 8 MEQ/L 6 MEQ/L Estimat Glomerular Filtration Rate 99 ML/MIN 109 ML/MIN Magnesium Level 2.2 MG/DL 2.1 MG/DL B-Type Natriuretic Peptide 90 PG/ML Microbiology Date/Time Source Procedure Growth Status 08/13/17 10:20 Nasal Washing Influenza Types A,B Antigen (LISA) - Final NEGATIVE FOR FLU A AND B ANTIGEN.... Complete Imaging Last Impressions Chest X-Ray 08/14/17 0600 Signed Impressions: Service Date/Time: Monday, August 14, 2017 05:28 - CONCLUSION: No significant change bilateral diffuse airspace disease. Cleve Dior MD Chest CT 08/10/17 0000 Signed Impressions: Service Date/Time: Thursday, August 10, 2017 17:36 - CONCLUSION: 1. Upper lobe predominant central emphysema with upper lobe predominant diffuse interstitial and groundglass opacities. Differential considerations include developing ARDS, atypical infection, pulmonary edema, sarcoidosis, and drug induced lung disease amongst other etiologies. 2. Trace right pleural effusion. Jovi Loaiza MD Upper Extremity Ultrasound 08/07/17 1213 Signed Impressions: Service Date/Time: Monday, August 07, 2017 12:30 - CONCLUSION: Negative for deep venous thrombosis. Naveed Sage MD FACR Elbow X-Ray 08/07/17 0000 Signed Impressions: Service Date/Time: Monday, August 07, 2017 13:12 - CONCLUSION: Joint effusion, no fracture Naveed Sage MD FACR Elbow MRI 08/07/17 0000 Signed Impressions: Service Date/Time: Monday, August 07, 2017 14:11 - CONCLUSION: Presumed inflammatory process mainly involving the brachialis. The joint is suspected to be infected as well. There is no osteomyelitis as yet. Neurovascular bundle is displaced medially there are brachial bifurcation findings have been discussed with Latosha FRANCOIS on today's date. Naveed Sage MD FACR Physical Exam CONSTITUTIONAL/GENERAL: This is an adequately nourished patient, + increased resp effort TUBES/LINES/DRAINS: SKIN: No jaundice, rashes, or lesions. CARDIOVASCULAR: Regular rate and rhythm without murmurs, gallops, or rubs. RESPIRATORY/CHEST: Symmetric, labored respirations. Fine crackles to auscultation. On exam coarse BS no ETT secretions GASTROINTESTINAL: Abdomen soft, non-tender, nondistended. MUSCULOSKELETAL: Extremities without clubbing, cyanosis, or edema. No joint tenderness or effusion noted. No calf tenderness. No mottling or clubbing. LUE with very clean healing incision w/o erythema or edema no edema, no erythema fingers free of neurovascular deficits No ascending cellulitis, lymphangitis or ipsilateral lymphadenopathy NEUROLOGICAL: sedated, PSYCHIATRIC: unable to assess Assessment & Plan Remarks Assessment and Plan Septic arthitis L elbow with deep abscess L brachialis muscle - growing MRSA sp I+D - healed, no e/o ongoing infx Acute VDR - PNA vs non ifectious pneumonitis -CT with Upper lobe predominant central emphysema with upper lobe predominant diffuse interstitial and groundglass opacities ? atypical PNA Severe leukocytosis RA, on Humira Rec's: cont cefepime, levaquine cont vancomycin x 4 weeks donna RN donna Navarrete, Marilyn Ho MD Aug 15, 2017 13:21
--- NOTE | 2017-08-15 19:32 | HHI.PR ---
Subjective Remarks Intubated last PM and on Vent support , FIO2 at 60 %. .Transferred to [facility]. Intubated and on vent support.Sedated. CXR shows basal Infiltrate Objective Vital Signs Date Time Temp Pulse Resp B/P (MAP) Pulse Ox O2 Delivery O2 Flow Rate FiO2 08/15/17 18:00 94 08/15/17 16:03 93 70 08/15/17 16:00 70 08/15/17 16:00 99.0 98 32 136/64 (88) 93 08/15/17 16:00 98 08/15/17 14:00 96 08/15/17 12:12 98 70 08/15/17 12:10 97 Mechanical Ventilator 70 08/15/17 12:00 99.7 93 28 124/58 (80) 99 08/15/17 12:00 93 08/15/17 12:00 70 08/15/17 10:00 101 08/15/17 08:00 95 08/15/17 08:00 99.0 95 24 139/70 (93) 95 08/15/17 08:00 80 08/15/17 07:30 94 Mechanical Ventilator 80 08/15/17 07:29 93 80 08/15/17 07:00 100 Mechanical Ventilator 100 08/15/17 06:00 84 08/15/17 04:00 88 08/15/17 04:00 100 100 08/15/17 04:00 100 08/15/17 04:00 98.5 88 24 138/71 (93) 100 08/15/17 02:00 90 08/15/17 00:00 92 08/15/17 00:00 100 08/15/17 00:00 100 100 08/15/17 00:00 98.5 92 24 141/57 (85) 100 08/14/17 22:00 92 08/14/17 20:10 99 100 08/14/17 20:00 98.6 98 31 156/71 (99) 100 08/14/17 20:00 100 08/14/17 20:00 98 I/O 08/14/17 08/14/17 08/14/17 08/15/17 08/15/17 08/15/17 07:00 15:00 23:00 07:00 15:00 23:00 Intake Total 840 ml 150 ml 300 ml 1045 ml 379 ml 700 ml Output Total 800 ml 625 ml 720 ml Balance 840 ml 150 ml -500 ml 420 ml 379 ml -20 ml Intake Oral 240 ml 300 ml IV Total 600 ml 150 ml 1045 ml 379 ml 600 ml Other 100 ml Output Urine Total 800 ml 425 ml 600 ml Stool Total 0 ml Gastric Drainage Total 200 ml 120 ml # Voids 2 # Bowel Movements 0 0 0 Result Diagram: 08/15/1744908/15/17449 Objective Remarks GENERAL: This is a averagely built middle-aged white female who is intubated Cyanosis noted HEENT: Head normocephalic. Pupils reactive and equal. Nasal mucosa edematous.clear.No thyroid enlargement or lymphadenopathy. CHEST: Decreased excursions. Expiratory wheezes scattered throughout both lung cabrera. Prolonged expirations.Bi basal crackles. HEART: The heart sounds are irregular, S1-S2. No definite murmur. No S3. ABDOMEN: The abdomen is protuberant and soft without masses or organomegaly or tenderness. EXTREMITIES: Mild joint deformities. There is no peripheral edema. Peripheral pulses are well felt. Reflexes are 1+ and she is sedated. SKIN: No lesions observed. Assessment and Plan Assessment and Plan IMPRESSION 1. COPD with emphysema and chronic bronchitis. 2. Cellulitis and left elbow joint infection. 3. Nicotine dependency. 4. History of rheumatoid arthritis and interstitial lung disease. 5. Fibromyalgia. Plan : 1. Cont Nebs qid , duoneb. 2. Vent support and keep sedated. 3. Cont Antibiotics. 4. BMP ,CXR CBC in am. 5. Cont Symbicort 160/4.5 mcg , 2puffs bid 6. NG with feeds at 50 CC, jevity 7. Cont Solumedrol 40 mg IV q8h Perla Gonzalez MD Aug 15, 2017 19:32
[2017-08-16] VITALS (19 sets, daily range): BP systolic 116–144; BP diastolic 58–70; PULSE 84–104; RESP 18–28; TEMP 98.3–99.4; O2SAT 92–100
[2017-08-16] MEDS: RESP: ACETYLCYSTEINE 20% 30 ML NEB NEB SCH ×7 (00:17→23:58)
[2017-08-16] MEDS: RESP: ALBUTEROL 0.63 MG/3 ML NEB (PRN) NEB ×2 (00:18→23:58)
[2017-08-16] MEDS: CEFEPIME INJ 2,000 MG in SODIUM CHLORIDE 0.9% INJ 100 ML IV SCH ×3 (02:55→17:38)
[2017-08-16] MEDS: VANCOMYCIN INJ 2,000 MG in SODIUM CHLORID 0.9% 500 ML INJ 500 ML IV SCH ×2 (02:55→13:10)
[2017-08-16] MEDS: PROPOFOL 1000 MG/100 ML IV PRN ×5 (03:16→18:40)
[2017-08-16 05:24] LABS: BICARBONATE 32.6 MEQ/L (21.0-32.0); POTASSIUM 3.7 MEQ/L (3.5-5.1)
[2017-08-16] MEDS: HEPARIN SODIUM - SQ 10,000 UNITS/ML VIAL SQ SCH ×3 (05:59→20:40)
[2017-08-16] MEDS: methylPREDNISolone SOD SUCC 40 MG/1 ML VIAL IV PUSH SCH ×3 (05:59→20:39)
--- NOTE | 2017-08-16 06:14 | RADRPT ---
EXAM DATE/TIME: 08/16/2017 04:45 [facility] COMPARISON: CHEST SINGLE AP, August 14, 2017, 18:59. INDICATIONS : Infiltrate. MEDICAL HISTORY : Chronic obstructive pulmonary disease. SURGICAL HISTORY : None. ENCOUNTER: Subsequent ACUITY: 1 week PAIN SCORE: Non-responsive. LOCATION: Bilateral chest FINDINGS: Single portable frontal view of the chest shows no interval change. Diffuse pulmonary infiltrates rem ain. No effusions. Heart normal size. Tip of the endotracheal tube 3 cm from the gregory. Right-sided central line. Nasogastric tube tip courses off the inferior margin of the film. CONCLUSION: Unchanged diffuse bilateral pulmonary infiltrates. Michelet Moore Jr., MD on August 16, 2017 at 6:12 Board Certified Radiologist. This report was verified electronically.
[2017-08-16] MEDS: LEVOFLOXACIN 750 MG PREMIX INJ 150 ML IV SCH (08:12)
[2017-08-16] MEDS: SODIUM CHLORIDE 0.9% FLUSH 10 ML FLUSH IV FLUSH SCH ×3 (08:12→21:00)
[2017-08-16] MEDS: PANTOPRAZOLE SODIUM 40 MG VIAL IV PUSH SCH (08:13)
[2017-08-16] MEDS: BUDESONIDE-FORMOTEROL 160/4.5 MCG INHALER INH SCH ×2 (08:13→21:00)
[2017-08-16] MEDS: DOCUSATE SODIUM 50 MG/SENNA 8.6 MG TAB PO SCH ×2 (08:14→20:38)
[2017-08-16] MEDS: GABAPENTIN 300 MG CAP PO SCH ×2 (08:14→20:38)
[2017-08-16] MEDS: FOLIC ACID 1 MG TAB PO SCH (08:14)
[2017-08-16] MEDS: buPROPion HCL 100 MG SUSTAINED RELEASE TAB PO SCH ×2 (08:14→20:39)
[2017-08-16] MEDS: DOXEPIN HCL 50 MG CAP PO SCH ×2 (08:14→20:37)
[2017-08-16] MEDS: guaiFENesin E.R. 600 MG TAB PO SCH ×2 (08:14→20:37)
[2017-08-16] MEDS: CHOLECALCIFEROL (VIT D3) 1000 UNIT TAB PO SCH (08:14)
[2017-08-16] MEDS: LEVOTHYROXINE SODIUM 50 MCG TAB PO SCH (08:14)
[2017-08-16] MEDS: FLUoxetine HCL 20 MG CAP PO SCH (08:14)
[2017-08-16] MEDS: NON-FORMULARY DRUG (Mometasone-Formoterol 120 Act Inh (Dulera 120 Act Inh) 2 PUFF) INH SCH ×2 (08:15→21:00)
--- NOTE | 2017-08-16 08:27 | HHI.CCPN ---
Subjective Remarks/Hospital Course 57-year-old white female with a history of a longstanding COPD and rheumatoid arthritis and fibromyalgia, was admitted with pain and swelling of the left elbow. The patient apparently was out of town and tripped and fell on her elbow injuring the elbow and requiring sutures for a laceration. Subsequently she developed swelling and redness and cellulitis and the patient was then brought to the ER where she was noted to have cellulitis with an abscessed area and now was seen by orthopedics and placed on antibiotic coverage for soft tissue infection with a joint abscess. She also was hypoxic upon admission and has been placed on oxygen via nasal cannula at 3 liters and she does have a cough and her chest x-ray that was done showed acute pulmonary infiltrates. Today she was in severe respiratory distress on the [facility] floor and the rapid response was called. She was transferred immediately to ICU and was intubated shortly after arrival due to severe respiratory distress and hypoxemia. 08/15: Gas exchange impaired, diffuse infiltrates persist. 08/16: Gas exchange remains markedly impaired. We are in for a long haul on the ventilator. 08/17: Gas exchange remains markedly impaired, PEEP 10 elevated FiO2. Diffuse interstitial infiltrates persist (On home oxygen). Extensive right arm and shoulder region DVT. Objective Vital Signs Date Time Temp Pulse Resp B/P (MAP) Pulse Ox O2 Delivery O2 Flow Rate FiO2 08/16/17 06:00 90 08/16/17 04:00 98.9 25 126/60 (82) 92 08/16/17 04:00 65 08/15/17 19:00 Mechanical Ventilator 08/14/17 07:33 15.00 Intake and Output 08/16/17 08/16/17 08/17/17 08:00 16:00 00:00 Intake Total 970 ml Output Total 1000 ml Balance -30 ml Result Diagram: 08/15/17 0450 08/16/17 0450 Other Results Microbiology Date/Time Source Procedure Growth Status 08/13/17 10:20 Nasal Washing Influenza Types A,B Antigen (LISA) - Final NEGATIVE FOR FLU A AND B ANTIGEN.... Complete Imaging Last 24 hours Impressions Chest X-Ray 08/14/17 0600 Signed Impressions: Service Date/Time: Monday, August 14, 2017 05:28 - CONCLUSION: No significant change bilateral diffuse airspace disease. Cleve Dior MD Objective Remarks GENERAL: Ill-appearing woman. Sedated and intubated SKIN: Warm and dry. HEAD: Normocephalic. EYES: No scleral icterus. No injection or drainage. NECK: Supple, trachea midline. Orally intubated. CARDIOVASCULAR: Regular rate and rhythm without murmurs, gallops, or rubs. No JVD. RESPIRATORY: Breath sounds equal bilaterally. Diffuse crackles. Good elissa air movement. GASTROINTESTINAL: Abdomen soft, non-tender, nondistended. BS active. MUSCULOSKELETAL: No cyanosis, or edema. Status post excision and drainage of left elbow. Incision clean, dry. Right arm swelling 2+. NEURO EXAM: Moves 4 limbs. WENDY. Opens eyes. Procedures Irrigation and debridement of left elbow A/P Assessment and Plan Respiratory failure - COPD exacerbation - Underlying emphysema - Empiric antibiotic - Follow-up cultures - IV steroid - Pulmonary following and appreciated - DuoNeb scheduled and when necessary Cellulitis and left elbow joint infection - Status post I&D -> MRSA - Continue antibiotics - Follow-up cultures from drainage Nicotine dependency. - Nicotine patch when necessary History of rheumatoid arthritis - And interstitial lung disease - IV steroids - Supportive care Fibromyalgia - Resume home meds when extubated - Currently on fentanyl drip Right arm, subclavian/axillary DVT. - Lovenox started bid, 80 mg DVT GI prophylaxis - Teds SCDs - Subcutaneous heparin - Tube feeds Overall impression: Critically ill with hypoxemic respiratory failure and large O2 gradient. Diffuse interstitial lung process with superimposed infiltrates. Unable to wean from ventilator. Appreciate input of Pulmonary Service. Prognosis poor. Critical care 34 mins Jai Ludwig MD Aug 16, 2017 08:27
[2017-08-16] MEDS: RESP: ALBUTEROL 2.5 MG/IPRATROPIUM 0.5 MG NEB (SCH) NEB ×4 (08:39→19:57)
[2017-08-16] MEDS: MIDAZOLAM 100 MG/NS 100 ML DRIP Premix IV PRN (13:09)
--- NOTE | 2017-08-16 15:09 | RADRPT ---
EXAM DATE/TIME: 08/16/2017 13:39 [facility] COMPARISON: No previous studies available for comparison. INDICATIONS : Right arm swelling. MEDICAL HISTORY : Chronic obstructive pulmonary disease. Gastroesophageal reflux disease. Diverticulitis. Thyroid disea se. Migraines. Fibromyalgia. Arthritis. PTSD. Depression. Anxiety. IBS. MRSA. SURGICAL HISTORY : Tubal ligation. Appendectomy. Cholecystectomy. Left knee surgery. Colon resection. Left elbow incisi on and drainage. ENCOUNTER: Initial ACUITY: 1 day PAIN SCORE: Non-responsive LOCATION: Right arm. FINDINGS: There is extensive right arm DVT with nonocclusive thrombus present in the subclavian axillary and br achial veins. Occlusive thrombus is present in the cephalic vein and basilic vein. CONCLUSION: Extensive right upper extremity DVT Cleve Barnett MD on August 16, 2017 at 15:06 Board Certified Radiologist. This report was verified electronically.
--- NOTE | 2017-08-16 19:50 | HHI.PR ---
Subjective Remarks Intubated and on Vent support , FIO2 at 70 %. Remains .Sedated. ABG poor Objective Vital Signs Date Time Temp Pulse Resp B/P (MAP) Pulse Ox O2 Delivery O2 Flow Rate FiO2 08/16/17 18:00 104 08/16/17 16:55 92 50 08/16/17 16:00 50 08/16/17 16:00 99.4 98 26 122/64 (83) 92 08/16/17 16:00 98 08/16/17 14:00 94 08/16/17 13:30 50 08/16/17 13:30 95 Mechanical Ventilator 50 08/16/17 13:18 92 50 08/16/17 12:00 60 08/16/17 12:00 98.3 95 18 130/60 (83) 96 08/16/17 12:00 95 08/16/17 10:00 97 08/16/17 08:42 100 60 08/16/17 08:00 84 08/16/17 08:00 60 08/16/17 08:00 99.3 84 24 144/70 (94) 92 08/16/17 07:00 95 Mechanical Ventilator 60 08/16/17 06:00 90 08/16/17 04:00 94 08/16/17 04:00 98.9 94 25 126/60 (82) 92 08/16/17 04:00 65 08/16/17 03:33 94 60 08/16/17 02:00 90 08/16/17 00:50 95 65 08/16/17 00:00 70 08/16/17 00:00 96 08/16/17 00:00 99.4 96 28 135/65 (88) 94 08/15/17 22:00 91 08/15/17 21:30 94 70 08/15/17 20:00 98 08/15/17 20:00 98.7 98 32 132/60 (84) 95 08/15/17 20:00 70 I/O 08/15/17 08/15/17 08/15/17 08/16/17 08/16/17 08/16/17 07:00 15:00 23:00 07:00 15:00 23:00 Intake Total 1045 ml 379 ml 723 ml 1042 ml 435 ml 1029 ml Output Total 625 ml 720 ml 1000 ml 0 ml 1300 ml Balance 420 ml 379 ml 3 ml 42 ml 435 ml -271 ml IV Total 1045 ml 379 ml 623 ml 982 ml 435 ml 750 ml Tube Feeding 159 ml Tube Irrigant 60 ml Other 100 ml 120 ml Output Urine Total 425 ml 600 ml 550 ml 1300 ml Gastric Drainage Total 200 ml 120 ml 450 ml Tube Feeding Residual Discard 0 ml # Bowel Movements 0 0 0 0 Result Diagram: 08/15/1744908/16/17449 Objective Remarks GENERAL: This is a averagely built middle-aged white female who is intubated HEENT: Head normocephalic. Pupils reactive and equal. Nasal mucosa edematous.clear.No thyroid enlargement or lymphadenopathy. CHEST: Decreased excursions. Expiratory wheezes scattered throughout both lung cabrera. Prolonged expirations.Bi basal crackles. HEART: The heart sounds are irregular, S1-S2. No definite murmur. No S3. ABDOMEN: The abdomen is protuberant and soft without masses or organomegaly or tenderness. EXTREMITIES: Mild joint deformities. There is mild peripheral edema. Peripheral pulses are felt. Reflexes are 1+ and she is sedated. SKIN: No lesions observed. Assessment and Plan Assessment and Plan IMPRESSION 1. COPD with emphysema and chronic bronchitis. 2. Cellulitis and left elbow joint infection. 3. Nicotine dependency. 4. History of rheumatoid arthritis and interstitial lung disease. 5. Fibromyalgia. Plan : 1. Cont Nebs qid , duoneb. 2. Vent support and keep sedated. 3. Cont Antibiotics. 4. BMP ,CXR CBC in am. 5. Cont Heparin S/Q 6. NG with feeds at 50 CC, jevity 7. Solumedrol 40 mg IV q8h Perla Gonzalez MD Aug 16, 2017 19:50
[2017-08-17] VITALS (17 sets, daily range): BP systolic 97–134; BP diastolic 54–60; PULSE 90–115; RESP 21–26; TEMP 98.7–100; O2SAT 92–100
[2017-08-17] MEDS: PROPOFOL 1000 MG/100 ML IV PRN ×7 (00:26→21:51)
[2017-08-17] MEDS: VANCOMYCIN INJ 2,000 MG in SODIUM CHLORID 0.9% 500 ML INJ 500 ML IV SCH ×2 (02:51→14:26)
[2017-08-17] MEDS: CEFEPIME INJ 2,000 MG in SODIUM CHLORIDE 0.9% INJ 100 ML IV SCH ×3 (02:51→16:42)
[2017-08-17] MEDS: RESP: ACETYLCYSTEINE 20% 30 ML NEB NEB SCH ×5 (04:00→20:00)
[2017-08-17] MEDS: RESP: ALBUTEROL 0.63 MG/3 ML NEB (PRN) NEB (04:10)
[2017-08-17] MEDS: HEPARIN SODIUM - SQ 10,000 UNITS/ML VIAL SQ SCH (05:39)
[2017-08-17] MEDS: MIDAZOLAM 100 MG/NS 100 ML DRIP Premix IV PRN (05:39)
[2017-08-17] MEDS: methylPREDNISolone SOD SUCC 40 MG/1 ML VIAL IV PUSH SCH ×3 (05:39→20:22)
[2017-08-17 05:48] LABS: AUTOMATED NEUTROPHIL # 21.8 TH/MM3 (1.8-7.7); BASOPHIL # 0.1 TH/MM3 (0-0.2); BASOPHIL % 0.2 % (0.0-2.0); EOSINOPHIL # 0.1 TH/MM3 (0-0.4); EOSINOPHIL % 0.5 % (0.0-4.0); HEMATOCRIT 29.2 % (35.0-46.0); LYMPH % 3.4 % (9.0-44.0); LYMPHOCYTE # 0.8 TH/MM3 (1.0-4.8); MEAN CELL VOLUME 103.9 FL (80.0-100.0); MEAN CORPUSCULAR HEMOGLOBIN 33.5 PG (27.0-34.0); MEAN CORPUSCULAR HGB CONC 32.2 % (32.0-36.0); MONO % 5.1 % (0.0-8.0); NEUT % 90.8 % (16.0-70.0); PLATELET COUNT 222 TH/MM3 (150-450); RED BLOOD COUNT 2.81 MIL/MM3 (4.00-5.30); RED CELL DISTRIBUTION WIDTH 14.6 % (11.6-17.2)
[2017-08-17 05:58] LABS: BICARBONATE 29.7 MEQ/L (21.0-32.0); POTASSIUM 3.8 MEQ/L (3.5-5.1)
[2017-08-17 06:38] LABS: HEMO FLAGS AUTO DIFF
[2017-08-17] MEDS: RESP: ALBUTEROL 2.5 MG/IPRATROPIUM 0.5 MG NEB (SCH) NEB ×4 (07:45→20:05)
[2017-08-17 07:51] LABS: BANDS 12 % (0-6); METAMYELOCYTES 1 % (0-1); POLYS (SEG NEUTROPHILS) 83 % (16-70); WBC DIFF SAMPLE 100
[2017-08-17 07:52] LABS: PLATELET ESTIMATE SMEAR NORMAL (NORMAL); PLATELET MORPHOLOGY NORMAL (NORMAL); SCAN/DIFF FINAL DIFF MANUAL; TOXIC VACUOLATION PRESENT (NONE SEEN)
[2017-08-17] MEDS: NON-FORMULARY DRUG (Mometasone-Formoterol 120 Act Inh (Dulera 120 Act Inh) 2 PUFF) INH SCH ×2 (08:09→21:00)
[2017-08-17] MEDS: BUDESONIDE-FORMOTEROL 160/4.5 MCG INHALER INH SCH ×2 (08:09→20:25)
[2017-08-17] MEDS: LEVOFLOXACIN 750 MG PREMIX INJ 150 ML IV SCH (08:09)
[2017-08-17] MEDS: DOXEPIN HCL 50 MG CAP PO SCH ×2 (08:10→20:21)
[2017-08-17] MEDS: FOLIC ACID 1 MG TAB PO SCH (08:10)
[2017-08-17] MEDS: GABAPENTIN 300 MG CAP PO SCH ×2 (08:10→20:21)
[2017-08-17] MEDS: SODIUM CHLORIDE 0.9% FLUSH 10 ML FLUSH IV FLUSH SCH ×3 (08:10→20:23)
[2017-08-17] MEDS: CHOLECALCIFEROL (VIT D3) 1000 UNIT TAB PO SCH (08:10)
[2017-08-17] MEDS: guaiFENesin E.R. 600 MG TAB PO SCH ×2 (08:10→20:20)
[2017-08-17] MEDS: PANTOPRAZOLE SODIUM 40 MG VIAL IV PUSH SCH (08:10)
[2017-08-17] MEDS: buPROPion HCL 100 MG SUSTAINED RELEASE TAB PO SCH ×2 (08:10→20:21)
[2017-08-17] MEDS: LEVOTHYROXINE SODIUM 50 MCG TAB PO SCH (08:10)
[2017-08-17] MEDS: ENOXAPARIN SODIUM 80 MG/0.8 ML SYRINGE SQ SCH ×2 (08:11→20:21)
[2017-08-17] MEDS: DOCUSATE SODIUM 50 MG/SENNA 8.6 MG TAB PO SCH ×2 (08:11→20:22)
[2017-08-17] MEDS: FLUoxetine HCL 20 MG CAP PO SCH (08:11)
--- NOTE | 2017-08-17 09:14 | HHI.IDPN ---
Subjective Subjective Remarks pt remains on vent now down to 50% No ETT secretions afebrile Antibiotics cefepime l;evaquine vancomycin Allergies: Coded Allergies: No Known Allergies (Unverified , 08/07/17) Objective . Vital Signs Date Time Temp Pulse Resp B/P (MAP) Pulse Ox O2 Delivery O2 Flow Rate FiO2 08/17/17 08:00 98.7 97 25 111/56 (74) 97 08/17/17 08:00 50 08/17/17 07:46 95 50 08/17/17 07:00 94 Mechanical Ventilator 50 08/17/17 06:00 90 08/17/17 04:11 94 50 08/17/17 04:00 95 08/17/17 04:00 50 08/17/17 04:00 98.8 95 21 134/60 (84) 94 08/17/17 02:00 110 08/17/17 00:00 98.7 104 25 113/55 (74) 92 08/17/17 00:00 50 08/17/17 00:00 95 08/16/17 23:58 93 50 08/16/17 22:00 96 08/16/17 20:00 99.0 100 21 116/58 (77) 94 08/16/17 20:00 95 Mechanical Ventilator 50 08/16/17 20:00 50 08/16/17 20:00 100 08/16/17 19:57 93 50 08/16/17 18:00 104 08/16/17 16:55 92 50 08/16/17 16:00 50 08/16/17 16:00 99.4 98 26 122/64 (83) 92 08/16/17 16:00 98 08/16/17 14:00 94 08/16/17 13:30 50 08/16/17 13:30 95 Mechanical Ventilator 50 08/16/17 13:18 92 50 08/16/17 12:00 60 08/16/17 12:00 98.3 95 18 130/60 (83) 96 08/16/17 12:00 95 08/16/17 10:00 97 . Laboratory Tests Test 08/17/17 05:30 White Blood Count 24.0 TH/MM3 Red Blood Count 2.81 MIL/MM3 Hemoglobin 9.4 GM/DL Hematocrit 29.2 % Mean Corpuscular Volume 103.9 FL Mean Corpuscular Hemoglobin 33.5 PG Mean Corpuscular Hemoglobin Concent 32.2 % Red Cell Distribution Width 14.6 % Platelet Count 222 TH/MM3 Mean Platelet Volume 8.7 FL Neutrophils (%) (Auto) 90.8 % Lymphocytes (%) (Auto) 3.4 % Monocytes (%) (Auto) 5.1 % Eosinophils (%) (Auto) 0.5 % Basophils (%) (Auto) 0.2 % Neutrophils # (Auto) 21.8 TH/MM3 Lymphocytes # (Auto) 0.8 TH/MM3 Monocytes # (Auto) 1.2 TH/MM3 Eosinophils # (Auto) 0.1 TH/MM3 Basophils # (Auto) 0.1 TH/MM3 CBC Comment AUTO DIFF Differential Total Cells Counted 100 Neutrophils % (Manual) 83 % Band Neutrophils % 12 % Lymphocytes % 3 % Monocytes % 1 % Neutrophils # (Manual) 23.0 TH/MM3 Metamyelocytes 1 % Differential Comment FINAL DIFF MANUAL Toxic Vacuolation PRESENT Platelet Estimate NORMAL Platelet Morphology Comment NORMAL Laboratory Tests Test 08/16/17 04:50 08/17/17 05:30 Blood Urea Nitrogen 23 MG/DL 20 MG/DL Creatinine 0.54 MG/DL 0.49 MG/DL Random Glucose 98 MG/DL 99 MG/DL Calcium Level 8.3 MG/DL 8.1 MG/DL Sodium Level 144 MEQ/L 141 MEQ/L Potassium Level 3.7 MEQ/L 3.8 MEQ/L Chloride Level 105 MEQ/L 106 MEQ/L Carbon Dioxide Level 32.6 MEQ/L 29.7 MEQ/L Anion Gap 6 MEQ/L 5 MEQ/L Estimat Glomerular Filtration Rate 116 ML/MIN 130 ML/MIN Imaging Last Impressions Chest X-Ray 08/16/17 0600 Signed Impressions: Service Date/Time: Wednesday, August 16, 2017 04:45 - CONCLUSION: Unchanged diffuse bilateral pulmonary infiltrates. Michelet Moore Jr., MD Upper Extremity Ultrasound 08/16/17 0000 Signed Impressions: Service Date/Time: Wednesday, August 16, 2017 13:39 - CONCLUSION: Extensive right upper extremity DVT Cleve Barnett MD Chest CT 08/10/17 0000 Signed Impressions: Service Date/Time: Thursday, August 10, 2017 17:36 - CONCLUSION: 1. Upper lobe predominant central emphysema with upper lobe predominant diffuse interstitial and groundglass opacities. Differential considerations include developing ARDS, atypical infection, pulmonary edema, sarcoidosis, and drug induced lung disease amongst other etiologies. 2. Trace right pleural effusion. Jovi Loaiza MD Elbow X-Ray 08/07/17 0000 Signed Impressions: Service Date/Time: Monday, August 07, 2017 13:12 - CONCLUSION: Joint effusion, no fracture Naveed Sage MD FACR Elbow MRI 08/07/17 0000 Signed Impressions: Service Date/Time: Monday, August 07, 2017 14:11 - CONCLUSION: Presumed inflammatory process mainly involving the brachialis. The joint is suspected to be infected as well. There is no osteomyelitis as yet. Neurovascular bundle is displaced medially there are brachial bifurcation findings have been discussed with Latosha FRANCOIS on today's date. Naveed Sage MD FACR Physical Exam CONSTITUTIONAL/GENERAL: This is an adequately nourished patient, + increased resp effort TUBES/LINES/DRAINS: SKIN: No jaundice, rashes, or lesions. CARDIOVASCULAR: Regular rate and rhythm without murmurs, gallops, or rubs. RESPIRATORY/CHEST: Symmetric, labored respirations. On exam coarse BS no ETT secretions GASTROINTESTINAL: Abdomen soft, non-tender, mildly distended. MUSCULOSKELETAL: Extremities without clubbing, cyanosis, Trace generalysed edema. LUE with very clean healing incision w/o erythema or edema no edema, no erythema fingers free of neurovascular deficits No ascending cellulitis, lymphangitis or ipsilateral lymphadenopathy NEUROLOGICAL: sedated, PSYCHIATRIC: unable to assess Assessment & Plan Remarks Assessment and Plan Septic arthitis L elbow with deep abscess L brachialis muscle - growing MRSA sp I+D - healed, no e/o ongoing infx Acute VDR - PNA vs non ifectious pneumonitis -CT with Upper lobe predominant central emphysema with upper lobe predominant diffuse interstitial and groundglass opacities ? atypical PNA Severe leukocytosis RA, on Humira Rec's: dc cefepime, - cont levaquine for now - sputum clx cont vancomycin x 4 weeks dw Marilyn Arenas MD Aug 17, 2017 09:14
[2017-08-17] MEDS: ACETAMINOPHEN 325 MG TAB PO PRN (13:01)
[2017-08-17] MEDS: ALPRAZolam 0.25 MG TAB PO PRN (15:23)
--- NOTE | 2017-08-17 18:51 | HHI.PR ---
Subjective Remarks on the ventilator sedated Objective Vital Signs Date Time Temp Pulse Resp B/P (MAP) Pulse Ox O2 Delivery O2 Flow Rate FiO2 08/17/17 18:00 115 08/17/17 16:00 50 08/17/17 16:00 106 08/17/17 16:00 100.0 106 22 112/60 (77) 100 08/17/17 15:31 98 50 08/17/17 14:00 114 08/17/17 12:00 50 08/17/17 12:00 99.9 108 26 97/54 (68) 100 08/17/17 12:00 108 08/17/17 11:12 98 50 08/17/17 10:00 106 08/17/17 08:00 101 08/17/17 08:00 98.7 97 25 111/56 (74) 97 08/17/17 08:00 50 08/17/17 07:46 95 50 08/17/17 07:00 94 Mechanical Ventilator 50 08/17/17 06:00 90 08/17/17 04:11 94 50 08/17/17 04:00 95 08/17/17 04:00 50 08/17/17 04:00 98.8 95 21 134/60 (84) 94 08/17/17 02:00 110 08/17/17 00:00 98.7 104 25 113/55 (74) 92 08/17/17 00:00 50 08/17/17 00:00 95 08/16/17 23:58 93 50 08/16/17 22:00 96 08/16/17 20:00 99.0 100 21 116/58 (77) 94 08/16/17 20:00 95 Mechanical Ventilator 50 08/16/17 20:00 50 08/16/17 20:00 100 08/16/17 19:57 93 50 I/O 08/16/17 08/16/17 08/16/17 08/17/17 08/17/17 08/17/17 07:00 15:00 23:00 07:00 15:00 23:00 Intake Total 1042 ml 435 ml 1029 ml 976 ml 650 ml 1320 ml Output Total 1000 ml 0 ml 1300 ml 1000 ml 1125 ml Balance 42 ml 435 ml -271 ml -24 ml 650 ml 195 ml IV Total 982 ml 435 ml 750 ml 300 ml 650 ml 620 ml Tube Feeding 159 ml 556 ml 100 ml Tube Irrigant 60 ml Other 120 ml 120 ml 600 ml Output Urine Total 550 ml 1300 ml 1000 ml 1125 ml Gastric Drainage Total 450 ml Tube Feeding Residual Discard 0 ml # Bowel Movements 0 0 2 1 Result Diagram: 08/17/1752908/17/17529 Objective Remarks GENERAL: SKIN: Warm and dry. HEAD: Atraumatic. Normocephalic. EYES: Pupils equal and round. No scleral icterus. No injection or drainage. ENT: No nasal bleeding or discharge. Mucous membranes pink and moist. NECK: Trachea midline. No JVD. CARDIOVASCULAR: Regular rate and rhythm. RESPIRATORY: No accessory muscle use. Clear to auscultation. Breath sounds equal bilaterally. GASTROINTESTINAL: Abdomen soft, non-tender, nondistended. Hepatic and splenic margins not palpable. MUSCULOSKELETAL: Extremities without clubbing, cyanosis, or edema. No obvious deformities. NEUROLOGICAL: Awake and alert. No obvious cranial nerve deficits. Motor grossly within normal limits. Five out of 5 muscle strength in the arms and legs. Normal speech. PSYCHIATRIC: Appropriate mood and affect; insight and judgment normal. Medications and IVs Laboratory Tests Test 08/14/17 20:50 08/15/17 02:50 08/15/17 04:50 08/16/17 04:50 Blood Gas HCO3 30 mmol/L (22-26) Blood Gas Base Excess 5.3 mmol/L (-2-2) Arterial Blood pH 7.43 (7.380-7.420) Arterial Blood Partial Pressure CO2 45 mmHg (38-42) Blood Gas Hemoglobin 9.2 G/DL (12.0-16.0) Vancomycin Level Trough 17.1 MCG/ML (5.0-10.0) White Blood Count 17.8 TH/MM3 (4.0-11.0) Red Blood Count 2.70 MIL/MM3 (4.00-5.30) Hemoglobin 9.0 GM/DL (11.6-15.3) Hematocrit 27.9 % (35.0-46.0) Mean Corpuscular Volume 103.5 FL (80.0-100.0) Neutrophils (%) (Auto) 91.5 % (16.0-70.0) Lymphocytes (%) (Auto) 2.4 % (9.0-44.0) Neutrophils # (Auto) 16.3 TH/MM3 (1.8-7.7) Lymphocytes # (Auto) 0.4 TH/MM3 (1.0-4.8) Monocytes # (Auto) 1.1 TH/MM3 (0-0.9) Neutrophils % (Manual) 82 % (16-70) Band Neutrophils % 8 % (0-6) Lymphocytes % 4 % (9-44) Neutrophils # (Manual) 16.2 TH/MM3 (1.8-7.7) Random Glucose 146 MG/DL (74-106) Potassium Level 3.4 MEQ/L (3.5-5.1) Blood Urea Nitrogen 23 MG/DL (7-18) Calcium Level 8.3 MG/DL (8.5-10.1) Carbon Dioxide Level 32.6 MEQ/L (21.0-32.0) Test 08/17/17 05:30 08/17/17 10:35 White Blood Count 24.0 TH/MM3 (4.0-11.0) Red Blood Count 2.81 MIL/MM3 (4.00-5.30) Hemoglobin 9.4 GM/DL (11.6-15.3) Hematocrit 29.2 % (35.0-46.0) Mean Corpuscular Volume 103.9 FL (80.0-100.0) Neutrophils (%) (Auto) 90.8 % (16.0-70.0) Lymphocytes (%) (Auto) 3.4 % (9.0-44.0) Neutrophils # (Auto) 21.8 TH/MM3 (1.8-7.7) Lymphocytes # (Auto) 0.8 TH/MM3 (1.0-4.8) Monocytes # (Auto) 1.2 TH/MM3 (0-0.9) Neutrophils % (Manual) 83 % (16-70) Band Neutrophils % 12 % (0-6) Lymphocytes % 3 % (9-44) Neutrophils # (Manual) 23.0 TH/MM3 (1.8-7.7) Toxic Vacuolation PRESENT (NONE SEEN) Blood Urea Nitrogen 20 MG/DL (7-18) Creatinine 0.49 MG/DL (0.50-1.00) Calcium Level 8.1 MG/DL (8.5-10.1) Assessment and Plan Assessment and Plan respiratory failure sepsis vent. dependent plan vent. support antibiotics per ID WEAN TOLERATED Stacey Ibarra MD Aug 17, 2017 18:51
[2017-08-18] VITALS (18 sets, daily range): BP systolic 98–122; BP diastolic 52–61; PULSE 100–116; RESP 13–26; TEMP 99.1–100.6; O2SAT 91–99
[2017-08-18] MEDS: RESP: ACETYLCYSTEINE 20% 30 ML NEB NEB SCH ×4 (00:21→11:03)
[2017-08-18] MEDS: RESP: ALBUTEROL 0.63 MG/3 ML NEB (PRN) NEB ×2 (00:21→03:48)
[2017-08-18] MEDS: VANCOMYCIN INJ 2,000 MG in SODIUM CHLORID 0.9% 500 ML INJ 500 ML IV SCH ×2 (03:34→14:22)
[2017-08-18] MEDS: CEFEPIME INJ 2,000 MG in SODIUM CHLORIDE 0.9% INJ 100 ML IV SCH ×3 (03:34→16:38)
[2017-08-18] MEDS: PROPOFOL 1000 MG/100 ML IV PRN ×5 (03:35→20:22)
[2017-08-18] MEDS: oxyCODONE/ACETAMINOPHEN 10 MG/325 MG TAB PO PRN (03:43)
[2017-08-18] MEDS: MIDAZOLAM 100 MG/NS 100 ML DRIP Premix IV PRN (03:55)
[2017-08-18] MEDS: methylPREDNISolone SOD SUCC 40 MG/1 ML VIAL IV PUSH SCH ×3 (04:57→20:23)
[2017-08-18 05:34] LABS: AUTOMATED NEUTROPHIL # 23.2 TH/MM3 (1.8-7.7); BASOPHIL # 0.1 TH/MM3 (0-0.2); BASOPHIL % 0.2 % (0.0-2.0); EOSINOPHIL # 0.9 TH/MM3 (0-0.4); EOSINOPHIL % 3.4 % (0.0-4.0); HEMATOCRIT 27.9 % (35.0-46.0); LYMPHOCYTE # 1.3 TH/MM3 (1.0-4.8); MEAN CELL VOLUME 103.3 FL (80.0-100.0); MEAN CORPUSCULAR HEMOGLOBIN 33.8 PG (27.0-34.0); MEAN CORPUSCULAR HGB CONC 32.7 % (32.0-36.0); MONO % 3.6 % (0.0-8.0); NEUT % 87.8 % (16.0-70.0); PLATELET COUNT 233 TH/MM3 (150-450); RED CELL DISTRIBUTION WIDTH 14.4 % (11.6-17.2); WHITE BLOOD COUNT 26.4 TH/MM3 (4.0-11.0)
[2017-08-18 06:08] LABS: HEMO FLAGS AUTO DIFF
[2017-08-18 07:23] LABS: BANDS 5 % (0-6); EOSINOPHILS 3 % (0-4); METAMYELOCYTES 1 % (0-1); MYELOCYTES 1 % (0-0); NEUTROPHIL # MANUAL DIFF 24.3 TH/MM3 (1.8-7.7); POLYS (SEG NEUTROPHILS) 85 % (16-70); WBC DIFF SAMPLE 100
[2017-08-18 07:24] LABS: SCAN/DIFF FINAL DIFF MANUAL
[2017-08-18] MEDS: LEVOFLOXACIN 750 MG PREMIX INJ 150 ML IV SCH (07:32)
[2017-08-18] MEDS: NON-FORMULARY DRUG (Mometasone-Formoterol 120 Act Inh (Dulera 120 Act Inh) 2 PUFF) INH SCH ×2 (07:32→21:00)
[2017-08-18] MEDS: BUDESONIDE-FORMOTEROL 160/4.5 MCG INHALER INH SCH ×2 (07:33→21:00)
[2017-08-18] MEDS: FLUoxetine HCL 20 MG CAP PO SCH (07:33)
[2017-08-18] MEDS: buPROPion HCL 100 MG SUSTAINED RELEASE TAB PO SCH ×2 (07:33→20:22)
[2017-08-18] MEDS: guaiFENesin E.R. 600 MG TAB PO SCH ×2 (07:34→20:22)
[2017-08-18] MEDS: ENOXAPARIN SODIUM 80 MG/0.8 ML SYRINGE SQ SCH ×2 (07:34→20:23)
[2017-08-18] MEDS: PANTOPRAZOLE SODIUM 40 MG VIAL IV PUSH SCH (07:35)
[2017-08-18] MEDS: SODIUM CHLORIDE 0.9% FLUSH 10 ML FLUSH IV FLUSH SCH ×3 (07:35→21:00)
[2017-08-18] MEDS: GABAPENTIN 300 MG CAP PO SCH ×2 (07:36→20:22)
[2017-08-18] MEDS: DOXEPIN HCL 50 MG CAP PO SCH ×2 (07:36→20:23)
[2017-08-18] MEDS: CHOLECALCIFEROL (VIT D3) 1000 UNIT TAB PO SCH (07:37)
[2017-08-18] MEDS: DOCUSATE SODIUM 50 MG/SENNA 8.6 MG TAB PO SCH ×2 (07:37→20:23)
[2017-08-18] MEDS: LEVOTHYROXINE SODIUM 50 MCG TAB PO SCH (07:37)
[2017-08-18] MEDS: FOLIC ACID 1 MG TAB PO SCH (07:37)
[2017-08-18] MEDS: RESP: ALBUTEROL 2.5 MG/IPRATROPIUM 0.5 MG NEB (SCH) NEB ×2 (07:48→11:03)
[2017-08-18] MEDS: ACETAMINOPHEN 325 MG TAB PO PRN ×3 (07:49→20:21)
--- NOTE | 2017-08-18 09:16 | HHI.CCPN ---
Subjective Remarks/Hospital Course 57-year-old white female with a history of a longstanding COPD and rheumatoid arthritis and fibromyalgia, was admitted with pain and swelling of the left elbow. The patient apparently was out of town and tripped and fell on her elbow injuring the elbow and requiring sutures for a laceration. Subsequently she developed swelling and redness and cellulitis and the patient was then brought to the ER where she was noted to have cellulitis with an abscessed area and now was seen by orthopedics and placed on antibiotic coverage for soft tissue infection with a joint abscess. She also was hypoxic upon admission and has been placed on oxygen via nasal cannula at 3 liters and she does have a cough and her chest x-ray that was done showed acute pulmonary infiltrates. Today she was in severe respiratory distress on the [facility] floor and the rapid response was called. She was transferred immediately to ICU and was intubated shortly after arrival due to severe respiratory distress and hypoxemia. 08/15: Gas exchange impaired, diffuse infiltrates persist. 08/16: Gas exchange remains markedly impaired. We are in for a long haul on the ventilator. 08/17: Gas exchange remains markedly impaired, PEEP 10 elevated FiO2. Diffuse interstitial infiltrates persist (On home oxygen). Extensive right arm and shoulder region DVT. 08/18: Converted to APRV for persistent hypoxemia. Leukocytosis persists. Objective Vital Signs Date Time Temp Pulse Resp B/P (MAP) Pulse Ox O2 Delivery O2 Flow Rate FiO2 08/18/17 08:00 100.4 106 22 114/61 (78) 94 08/18/17 08:00 50 08/18/17 07:00 Mechanical Ventilator 08/14/17 07:33 15.00 Intake and Output 08/18/17 08/18/17 08/19/17 08:00 16:00 00:00 Intake Total 1170 ml 150 ml Output Total 900 ml Balance 270 ml 150 ml Result Diagram: 08/18/17 0504 08/18/17 0504 Imaging Last 24 hours Impressions Chest X-Ray 08/14/17 06 Signed Impressions: Service Date/Time: Monday, August 14, 2017 05:28 - CONCLUSION: No significant change bilateral diffuse airspace disease. Cleve Dior MD Objective Remarks GENERAL: Ill-appearing woman. Sedated and intubated SKIN: Warm and dry. HEAD: Normocephalic. EYES: No scleral icterus. No injection or drainage. NECK: Supple, trachea midline. Orally intubated. CARDIOVASCULAR: Regular rate and rhythm without murmurs, gallops, or rubs. No JVD. RESPIRATORY: Breath sounds equal bilaterally. Diffuse rhonchi. Good elissa air movement. GASTROINTESTINAL: Abdomen soft, non-tender, nondistended. BS active. MUSCULOSKELETAL: No cyanosis, or edema. Status post excision and drainage of left elbow. Incision clean, dry. Right arm swelling 2+. NEURO EXAM: Moves 4 limbs. WENDY. Opens eyes. Procedures Irrigation and debridement of left elbow A/P Assessment and Plan Respiratory failure - COPD exacerbation - Underlying emphysema - Empiric antibiotic - Follow-up cultures - IV steroid - Pulmonary following and appreciated - DuoNeb scheduled and when necessary Cellulitis and left elbow joint infection - Status post I&D -> MRSA - Continue antibiotics - Follow-up cultures from drainage Nicotine dependency. - Nicotine patch when necessary History of rheumatoid arthritis - And interstitial lung disease - IV steroids - Supportive care Fibromyalgia - Resume home meds when extubated - Currently on fentanyl drip Right arm, subclavian/axillary DVT. - Lovenox started bid, 80 mg DVT GI prophylaxis - Teds SCDs - Subcutaneous heparin - Tube feeds Overall impression: Critically ill with hypoxemic respiratory failure and persistent large O2 gradient. Diffuse interstitial lung process with superimposed infiltrates. Unable to wean from ventilator. Converted to APRV. Appreciate input of Pulmonary Service. Prognosis poor. Critical care 36 mins Jai Ludwig MD Aug 18, 2017 09:16
[2017-08-18 09:40] LABS: BACTERIA, URINE FEW /hpf; BLOOD, URINE MOD (NEG); GLUCOSE,URINE NEG (NEG); KETONE, URINE NEG (NEG); NITRITE,URINE NEG (NEG); URINE COLOR YELLOW (YELLW/STRAW)
[2017-08-18 09:50] LABS: COMMENT (UR) CATH-CULTURE IND; CULTURE IF INDICATED CATH CULTURE IND
--- NOTE | 2017-08-18 10:12 | RADRPT ---
EXAM DATE/TIME: 08/18/2017 09:27 [place] COMPARISON: CT THORAX W/O CONTRAST, August 10, 2017, 17:36. CHEST SINGLE AP, August 16, 2017, 4:45. INDICATIONS : Shortness of breath. MEDICAL HISTORY : Chronic obstructive pulmonary disease. Gastroesophageal reflux disease. SURGICAL HISTORY : None. ENCOUNTER: Initial ACUITY: 1 day PAIN SCORE: Non-responsive. LOCATION: Bilateral chest FINDINGS: The endotracheal tube and NG tube are in satisfactory position. There is diffuse interstitial infiltr ate. There are fibrotic changes within the pulmonary parenchyma. There minimal bilateral effusions. The visualized bony structures are grossly intact. CONCLUSION: 1. The endotracheal tube NG tube and central lateral in satisfactory position. 2. There is diffuse interstitial prominence suggesting pulmonary fibrosis versus diffuse interstitial infiltrate. This is similar compared to previous dated 08/16/17. Rafael Sage MD on August 18, 2017 at 10:07 Board Certified Radiologist. This report was verified electronically.
--- NOTE | 2017-08-18 16:13 | HHI.PR ---
Subjective Remarks on the ventilator sedated Objective Vital Signs Date Time Temp Pulse Resp B/P (MAP) Pulse Ox O2 Delivery O2 Flow Rate FiO2 08/18/17 16:00 100 08/18/17 16:00 100.6 100 26 102/52 (69) 99 08/18/17 16:00 50 08/18/17 14:00 113 08/18/17 12:00 108 08/18/17 12:00 100.4 108 20 98/53 (68) 99 08/18/17 12:00 50 08/18/17 11:03 98 50 08/18/17 10:00 103 08/18/17 08:00 100.4 106 22 114/61 (78) 94 08/18/17 08:00 106 08/18/17 08:00 50 08/18/17 07:48 91 50 08/18/17 07:00 95 Mechanical Ventilator 50 08/18/17 06:00 106 08/18/17 04:00 106 08/18/17 04:00 50 08/18/17 04:00 99.1 106 22 122/57 (78) 96 08/18/17 03:48 94 50 08/18/17 02:00 111 08/18/17 00:21 97 50 08/18/17 00:00 50 08/18/17 00:00 100.0 106 22 122/57 (78) 96 08/18/17 00:00 104 08/17/17 22:00 106 08/17/17 20:06 97 50 08/17/17 20:00 102 08/17/17 20:00 99.3 102 26 116/58 (77) 97 08/17/17 20:00 50 08/17/17 19:00 95 Mechanical Ventilator 50 08/17/17 18:00 115 I/O 08/17/17 08/17/17 08/17/17 08/18/17 08/18/17 08/18/17 07:00 15:00 23:00 07:00 15:00 23:00 Intake Total 976 ml 650 ml 1320 ml 1070 ml 450 ml Output Total 1000 ml 1125 ml 900 ml Balance -24 ml 650 ml 195 ml 170 ml 450 ml IV Total 300 ml 650 ml 620 ml 830 ml 450 ml Tube Feeding 556 ml 100 ml 180 ml Other 120 ml 600 ml 60 ml Output Urine Total 1000 ml 1125 ml 900 ml # Bowel Movements 2 1 1 Result Diagram: 08/18/17 0504 08/18/17 0504 Objective Remarks GENERAL: SKIN: Warm and dry. HEAD: Atraumatic. Normocephalic. EYES: Pupils equal and round. No scleral icterus. No injection or drainage. ENT: No nasal bleeding or discharge. Mucous membranes pink and moist. NECK: Trachea midline. No JVD. CARDIOVASCULAR: Regular rate and rhythm. RESPIRATORY: No accessory muscle use. Clear to auscultation. Breath sounds equal bilaterally. GASTROINTESTINAL: Abdomen soft, non-tender, nondistended. Hepatic and splenic margins not palpable. MUSCULOSKELETAL: Extremities without clubbing, cyanosis, or edema. No obvious deformities. NEUROLOGICAL: Awake and alert. No obvious cranial nerve deficits. Motor grossly within normal limits. Five out of 5 muscle strength in the arms and legs. Normal speech. PSYCHIATRIC: Appropriate mood and affect; insight and judgment normal. Medications and IVs Laboratory Tests Test 08/16/17 04:50 08/17/17 05:30 08/17/17 10:35 08/18/17 05:04 Blood Urea Nitrogen 23 MG/DL (7-18) 20 MG/DL (7-18) Calcium Level 8.3 MG/DL (8.5-10.1) 8.1 MG/DL (8.5-10.1) Carbon Dioxide Level 32.6 MEQ/L (21.0-32.0) White Blood Count 24.0 TH/MM3 (4.0-11.0) 26.4 TH/MM3 (4.0-11.0) Red Blood Count 2.81 MIL/MM3 (4.00-5.30) 2.70 MIL/MM3 (4.00-5.30) Hemoglobin 9.4 GM/DL (11.6-15.3) 9.1 GM/DL (11.6-15.3) Hematocrit 29.2 % (35.0-46.0) 27.9 % (35.0-46.0) Mean Corpuscular Volume 103.9 FL (80.0-100.0) 103.3 FL (80.0-100.0) Neutrophils (%) (Auto) 90.8 % (16.0-70.0) 87.8 % (16.0-70.0) Lymphocytes (%) (Auto) 3.4 % (9.0-44.0) 5.0 % (9.0-44.0) Neutrophils # (Auto) 21.8 TH/MM3 (1.8-7.7) 23.2 TH/MM3 (1.8-7.7) Lymphocytes # (Auto) 0.8 TH/MM3 (1.0-4.8) Monocytes # (Auto) 1.2 TH/MM3 (0-0.9) Neutrophils % (Manual) 83 % (16-70) 85 % (16-70) Band Neutrophils % 12 % (0-6) Lymphocytes % 3 % (9-44) 3 % (9-44) Neutrophils # (Manual) 23.0 TH/MM3 (1.8-7.7) 24.3 TH/MM3 (1.8-7.7) Toxic Vacuolation PRESENT (NONE SEEN) Creatinine 0.49 MG/DL (0.50-1.00) Eosinophils # (Auto) 0.9 TH/MM3 (0-0.4) Myelocytes 1 % (0-0) Test 08/18/17 08:10 Urine Turbidity CLOUDY (CLEAR) Urine Protein 30 mg/dL (NEG-TRACE) Urine Occult Blood MOD (NEG) Urine RBC 106 /hpf (0-3) Urine WBC 10 /hpf (0-5) Urine WBC Clumps MOD (NONE) Urine Bacteria FEW /hpf (NONE) Assessment and Plan Assessment and Plan respiratory failure sepsis vent. dependent plan vent. support antibiotics per ID WEAN TOLERATED Stacey Ibarra MD Aug 18, 2017 16:13
[2017-08-19] VITALS (19 sets, daily range): BP systolic 92–131; BP diastolic 54–61; PULSE 70–130; RESP 14–22; TEMP 98.6–100.2; O2SAT 88–100
[2017-08-19] MEDS: MIDAZOLAM 100 MG/NS 100 ML DRIP Premix IV PRN (00:34)
[2017-08-19] MEDS: PROPOFOL 1000 MG/100 ML IV PRN ×3 (00:34→18:18)
[2017-08-19] MEDS: VANCOMYCIN INJ 2,000 MG in SODIUM CHLORID 0.9% 500 ML INJ 500 ML IV SCH (02:25)
[2017-08-19] MEDS: CEFEPIME INJ 2,000 MG in SODIUM CHLORIDE 0.9% INJ 100 ML IV SCH ×3 (02:25→18:17)
[2017-08-19] MEDS: methylPREDNISolone SOD SUCC 40 MG/1 ML VIAL IV PUSH SCH ×3 (05:49→20:37)
[2017-08-19 06:50] LABS: AUTOMATED NEUTROPHIL # 20.7 TH/MM3 (1.8-7.7); BASOPHIL % 0.1 % (0.0-2.0); EOSINOPHIL # 0.4 TH/MM3 (0-0.4); EOSINOPHIL % 1.9 % (0.0-4.0); HEMATOCRIT 31.4 % (35.0-46.0); LYMPH % 4.4 % (9.0-44.0); MEAN CELL VOLUME 104.7 FL (80.0-100.0); MEAN CORPUSCULAR HEMOGLOBIN 32.9 PG (27.0-34.0); MEAN CORPUSCULAR HGB CONC 31.4 % (32.0-36.0); MONO % 4.1 % (0.0-8.0); NEUT % 89.5 % (16.0-70.0); PLATELET COUNT 280 TH/MM3 (150-450); RED BLOOD COUNT 2.99 MIL/MM3 (4.00-5.30); WHITE BLOOD COUNT 23.1 TH/MM3 (4.0-11.0)
[2017-08-19 07:03] LABS: HEMO FLAGS AUTO DIFF
[2017-08-19 07:47] LABS: POTASSIUM 4.9 MEQ/L (3.5-5.1)
[2017-08-19 08:14] LABS: BANDS 3 % (0-6); EOSINOPHILS 3 % (0-4); METAMYELOCYTES 2 % (0-1); MYELOCYTES 1 % (0-0); NEUTROPHIL # MANUAL DIFF 19.6 TH/MM3 (1.8-7.7); PLATELET ESTIMATE SMEAR NORMAL (NORMAL); PLATELET MORPHOLOGY NORMAL (NORMAL); POLYS (SEG NEUTROPHILS) 79 % (16-70); SCAN/DIFF FINAL DIFF MANUAL; WBC DIFF SAMPLE 100
[2017-08-19] MEDS: LEVOFLOXACIN 750 MG PREMIX INJ 150 ML IV SCH (08:53)
[2017-08-19] MEDS: PANTOPRAZOLE SODIUM 40 MG VIAL IV PUSH SCH (08:53)
[2017-08-19] MEDS: LEVOTHYROXINE SODIUM 50 MCG TAB PO SCH (08:54)
[2017-08-19] MEDS: ENOXAPARIN SODIUM 80 MG/0.8 ML SYRINGE SQ SCH (08:54)
[2017-08-19] MEDS: GABAPENTIN 300 MG CAP PO SCH ×2 (08:54→20:37)
[2017-08-19] MEDS: DOCUSATE SODIUM 50 MG/SENNA 8.6 MG TAB PO SCH (08:54)
[2017-08-19] MEDS: FOLIC ACID 1 MG TAB PO SCH (08:54)
[2017-08-19] MEDS: buPROPion HCL 100 MG SUSTAINED RELEASE TAB PO SCH ×2 (08:54→20:37)
[2017-08-19] MEDS: CHOLECALCIFEROL (VIT D3) 1000 UNIT TAB PO SCH (08:54)
[2017-08-19] MEDS: SODIUM CHLORIDE 0.9% FLUSH 10 ML FLUSH IV FLUSH SCH ×3 (08:55→20:38)
[2017-08-19] MEDS: DOXEPIN HCL 50 MG CAP PO SCH ×2 (08:55→20:37)
[2017-08-19] MEDS: BUDESONIDE-FORMOTEROL 160/4.5 MCG INHALER INH SCH (08:55)
[2017-08-19] MEDS: NON-FORMULARY DRUG (Mometasone-Formoterol 120 Act Inh (Dulera 120 Act Inh) 2 PUFF) INH SCH (09:00)
[2017-08-19] MEDS: FLUoxetine HCL 20 MG CAP PO SCH (09:03)
[2017-08-19] MEDS: guaiFENesin E.R. 600 MG TAB PO SCH ×2 (09:03→20:37)
[2017-08-19] MEDS ORDERED: CLINDAMYCIN 150 MG CAP PO SCH (10:00)
[2017-08-19] MEDS: ACETAMINOPHEN 325 MG TAB PO PRN (10:43)
--- NOTE | 2017-08-19 11:23 | HHI.IDPN ---
Subjective Subjective Remarks pt is on Bilevel vent mode FiO2 45 % +low grade fever up to 100.6 UOP adequate, but creatinine went up to 1.69 Antibiotics cefepime l;evaquine vancomycin Allergies: Coded Allergies: No Known Allergies (Unverified , 08/07/17) Objective . Vital Signs Date Time Temp Pulse Resp B/P (MAP) Pulse Ox O2 Delivery O2 Flow Rate FiO2 08/19/17 10:15 26 08/19/17 07:00 98 Mechanical Ventilator 50 08/19/17 06:00 116 08/19/17 04:48 99 45 08/19/17 04:00 114 08/19/17 04:00 50 08/19/17 04:00 99.3 105 19 92/54 (67) 99 08/19/17 02:00 107 08/19/17 00:28 98 45 08/19/17 00:00 116 08/19/17 00:00 99.7 109 18 94/59 (71) 100 08/19/17 00:00 50 08/18/17 22:00 110 08/18/17 20:39 98 50 08/18/17 20:00 100.0 116 13 105/60 (75) 97 08/18/17 20:00 116 08/18/17 20:00 50 08/18/17 19:00 99 Mechanical Ventilator 50 08/18/17 18:00 112 08/18/17 16:00 100 08/18/17 16:00 100.6 100 26 102/52 (69) 99 08/18/17 16:00 50 08/18/17 15:13 99 50 08/18/17 14:00 113 08/18/17 12:00 108 08/18/17 12:00 100.4 108 20 98/53 (68) 99 08/18/17 12:00 50 08/19/17 08/19/17 08/20/17 15:00 23:00 07:00 Intake Total 250 ml Balance 250 ml IV Total 250 ml . Laboratory Tests Test 08/18/17 05:04 08/19/17 06:10 White Blood Count 26.4 TH/MM3 23.1 TH/MM3 Red Blood Count 2.70 MIL/MM3 2.99 MIL/MM3 Hemoglobin 9.1 GM/DL 9.8 GM/DL Hematocrit 27.9 % 31.4 % Mean Corpuscular Volume 103.3 FL 104.7 FL Mean Corpuscular Hemoglobin 33.8 PG 32.9 PG Mean Corpuscular Hemoglobin Concent 32.7 % 31.4 % Red Cell Distribution Width 14.4 % 15.0 % Platelet Count 233 TH/MM3 280 TH/MM3 Mean Platelet Volume 8.9 FL 8.9 FL Neutrophils (%) (Auto) 87.8 % 89.5 % Lymphocytes (%) (Auto) 5.0 % 4.4 % Monocytes (%) (Auto) 3.6 % 4.1 % Eosinophils (%) (Auto) 3.4 % 1.9 % Basophils (%) (Auto) 0.2 % 0.1 % Neutrophils # (Auto) 23.2 TH/MM3 20.7 TH/MM3 Lymphocytes # (Auto) 1.3 TH/MM3 1.0 TH/MM3 Monocytes # (Auto) 0.9 TH/MM3 0.9 TH/MM3 Eosinophils # (Auto) 0.9 TH/MM3 0.4 TH/MM3 Basophils # (Auto) 0.1 TH/MM3 0.0 TH/MM3 CBC Comment AUTO DIFF AUTO DIFF Differential Total Cells Counted 100 100 Neutrophils % (Manual) 85 % 79 % Band Neutrophils % 5 % 3 % Lymphocytes % 3 % 6 % Monocytes % 2 % 6 % Eosinophils % 3 % 3 % Neutrophils # (Manual) 24.3 TH/MM3 19.6 TH/MM3 Metamyelocytes 1 % 2 % Myelocytes 1 % 1 % Differential Comment FINAL DIFF MANUAL FINAL DIFF MANUAL Platelet Estimate NORMAL Platelet Morphology Comment NORMAL Laboratory Tests Test 08/18/17 05:04 08/19/17 06:10 Creatinine 0.51 MG/DL 1.69 MG/DL Estimat Glomerular Filtration Rate 124 ML/MIN 31 ML/MIN Blood Urea Nitrogen 41 MG/DL Random Glucose 63 MG/DL Calcium Level 8.2 MG/DL Sodium Level 139 MEQ/L Potassium Level 4.9 MEQ/L Chloride Level 104 MEQ/L Carbon Dioxide Level 27.0 MEQ/L Anion Gap 8 MEQ/L Microbiology Date/Time Source Procedure Growth Status 08/18/17 10:23 Blood Peripheral Aerobic Blood Culture - Preliminary NO GROWTH IN 1 DAY Resulted 08/18/17 10:23 Blood Peripheral Anaerobic Blood Culture - Preliminary NO GROWTH IN 1 DAY Resulted 08/18/17 10:15 Blood Peripheral Aerobic Blood Culture - Preliminary NO GROWTH IN 1 DAY Resulted 08/18/17 10:15 Blood Peripheral Anaerobic Blood Culture - Preliminary NO GROWTH IN 1 DAY Resulted 08/17/17 10:50 Sputum Endotracheal Gram Stain - Final Complete 08/17/17 10:50 Sputum Endotracheal Sputum Culture - Final HEAVY GROWTH NORMAL RESPIRATORY OLMAN Complete 08/18/17 08:10 Urine Catheterized Urine Urine Culture Pending Received Imaging Last Impressions Chest X-Ray 08/18/17 1400 Signed Impressions: Service Date/Time: Friday, August 18, 2017 09:27 - CONCLUSION: 1. The endotracheal tube NG tube and central lateral in satisfactory position. 2. There is diffuse interstitial prominence suggesting pulmonary fibrosis versus diffuse interstitial infiltrate. This is similar compared to previous dated 08/16/17. Rafael Sage MD Upper Extremity Ultrasound 08/16/17 0000 Signed Impressions: Service Date/Time: Wednesday, August 16, 2017 13:39 - CONCLUSION: Extensive right upper extremity DVT Cleve Barnett MD Chest CT 08/10/17 0000 Signed Impressions: Service Date/Time: Thursday, August 10, 2017 17:36 - CONCLUSION: 1. Upper lobe predominant central emphysema with upper lobe predominant diffuse interstitial and groundglass opacities. Differential considerations include developing ARDS, atypical infection, pulmonary edema, sarcoidosis, and drug induced lung disease amongst other etiologies. 2. Trace right pleural effusion. Jovi Loaiza MD Elbow X-Ray 08/07/17 0000 Signed Impressions: Service Date/Time: Monday, August 07, 2017 13:12 - CONCLUSION: Joint effusion, no fracture Naveed Sage MD FACR Elbow MRI 08/07/17 0000 Signed Impressions: Service Date/Time: Monday, August 07, 2017 14:11 - CONCLUSION: Presumed inflammatory process mainly involving the brachialis. The joint is suspected to be infected as well. There is no osteomyelitis as yet. Neurovascular bundle is displaced medially there are brachial bifurcation findings have been discussed with Latosha FRANCOIS on today's date. Naveed Sage MD FACR Physical Exam CONSTITUTIONAL/GENERAL: This is an adequately nourished patient, + increased resp effort TUBES/LINES/DRAINS: SKIN: No jaundice, rashes, or lesions. CARDIOVASCULAR: Regular rate and rhythm without murmurs, gallops, or rubs. RESPIRATORY/CHEST: Symmetric, tachypneic Very decreased BS on the R diminished on the L GASTROINTESTINAL: Abdomen soft, non-tender, mildly distended. MUSCULOSKELETAL: Extremities without clubbing, cyanosis, RUE + non pitting edema. LUE with very clean healing incision w/o erythema or edema no edema, no erythema fingers free of neurovascular deficits No ascending cellulitis, lymphangitis or ipsilateral lymphadenopathy : [place] with somewhat cloudy urine NEUROLOGICAL: sedated, PSYCHIATRIC: unable to assess Assessment & Plan Remarks Assessment and Plan Septic arthitis L elbow with deep abscess L brachialis muscle, MRSA sp I+D - healed, no e/o ongoing infx Acute VDRF - PNA vs non ifectious pneumonitis -not favoring PNA, more likely chronic intersitial lung disaes with advanced chronic resp failure interstitial and groundglass opacities ? atypical PNA Severe leukocytosis RA, on Humira RUE DVT Low grade fever ? from DVT New issue:AFR ? vancomycin contributing ? UTI - UA abn, clx P Pt is criically ill Rec's: cont cefepime, - cont levaquine for now - sputum clx dc vancomycin will start clindamycin to completed the planned 4 weeks STAT CXR was done 2/2 decreased BS, no acute findings chkl urine eos dw family at b/s Dw Marilyn Prince RN, MD Aug 19, 2017 11:23
--- NOTE | 2017-08-19 11:49 | RADRPT ---
EXAM DATE/TIME: 08/19/2017 10:54 [facility] COMPARISON: CHEST SINGLE AP, August 18, 2017, 9:27. INDICATIONS : Atelectasis. MEDICAL HISTORY : None. SURGICAL HISTORY : None. ENCOUNTER: Initial ACUITY: 2 weeks PAIN SCORE: Non-responsive. LOCATION: chest FINDINGS: Support apparatus is in good position. There is improvement with less peripheral changes left lung. There is no pneumothorax. CONCLUSION: Interval improvement particularly on the left. Naveed Sage MD FACR on August 19, 2017 at 11:47 Board Certified Radiologist. This report was verified electronically.
--- NOTE | 2017-08-19 12:08 | HHI.CCPN ---
Subjective Remarks/Hospital Course 57-year-old white female with a history of a longstanding COPD and rheumatoid arthritis and fibromyalgia, was admitted with pain and swelling of the left elbow. The patient apparently was out of town and tripped and fell on her elbow injuring the elbow and requiring sutures for a laceration. Subsequently she developed swelling and redness and cellulitis and the patient was then brought to the ER where she was noted to have cellulitis with an abscessed area and now was seen by orthopedics and placed on antibiotic coverage for soft tissue infection with a joint abscess. She also was hypoxic upon admission and has been placed on oxygen via nasal cannula at 3 liters and she does have a cough and her chest x-ray that was done showed acute pulmonary infiltrates. Today she was in severe respiratory distress on the [facility] floor and the rapid response was called. She was transferred immediately to ICU and was intubated shortly after arrival due to severe respiratory distress and hypoxemia. 08/15: Gas exchange impaired, diffuse infiltrates persist. 08/16: Gas exchange remains markedly impaired. We are in for a long haul on the ventilator. 08/17: Gas exchange remains markedly impaired, PEEP 10 elevated FiO2. Diffuse interstitial infiltrates persist (On home oxygen). Extensive right arm and shoulder region DVT. 08/18: Converted to APRV for persistent hypoxemia. Leukocytosis persists. 08/19: A-aO2 gradient gradually improving. Family has reasonable concerns about the length of time she will require mechanical ventilation. They are at odds with each other about the terms defined in her advanced directive. I have asked them to bring the document to us. At this point the patient is gradually improving and will undergo spontaneous breathing trials within a day or two. Objective Vital Signs Date Time Temp Pulse Resp B/P (MAP) Pulse Ox O2 Delivery O2 Flow Rate FiO2 08/19/17 10:15 26 08/19/17 10:00 130 08/19/17 08:00 50 08/19/17 08:00 100.2 114/61 (78) 97 08/19/17 07:00 Mechanical Ventilator Intake and Output 08/19/17 08/19/17 08/20/17 08:00 16:00 00:00 Intake Total 1090 ml 250 ml Output Total 400 ml Balance 690 ml 250 ml Result Diagram: 08/19/17 0610 08/19/1710 Other Results Microbiology Date/Time Source Procedure Growth Status 08/17/17 10:50 Sputum Endotracheal Gram Stain - Final Complete 08/17/17 10:50 Sputum Endotracheal Sputum Culture - Final HEAVY GROWTH NORMAL RESPIRATORY OLMAN Complete Imaging Last 24 hours Impressions Chest X-Ray 08/14/17 0600 Signed Impressions: Service Date/Time: Monday, August 14, 2017 05:28 - CONCLUSION: No significant change bilateral diffuse airspace disease. Cleve Dior MD Objective Remarks GENERAL: Ill-appearing woman. Sedated and intubated SKIN: Warm and dry. HEAD: Normocephalic. EYES: No scleral icterus. No injection or drainage. NECK: Supple, trachea midline. Orally intubated. CARDIOVASCULAR: Regular rate and rhythm without murmurs, gallops, or rubs. No JVD. RESPIRATORY: Breath sounds equal bilaterally. Diffuse rhonchi. Good elissa air movement. GASTROINTESTINAL: Abdomen soft, non-tender, nondistended. BS active. MUSCULOSKELETAL: No cyanosis, or edema. Status post excision and drainage of left elbow. Incision clean, dry. Right arm swelling 2+. NEURO EXAM: Moves 4 limbs. WENDY. Opens eyes. Procedures Irrigation and debridement of left elbow A/P Assessment and Plan Respiratory failure - COPD exacerbation - Underlying emphysema - Empiric antibiotic - Follow-up cultures - IV steroid - Pulmonary following and appreciated - DuoNeb scheduled and when necessary Cellulitis and left elbow joint infection - Status post I&D -> MRSA - Continue antibiotics - Follow-up cultures from drainage Nicotine dependency. - Nicotine patch when necessary History of rheumatoid arthritis - And interstitial lung disease - IV steroids - Supportive care Fibromyalgia - Resume home meds when extubated - Currently on fentanyl drip Right arm, subclavian/axillary DVT. - Lovenox started bid, 80 mg DVT GI prophylaxis - Teds SCDs - Subcutaneous heparin - Tube feeds Overall impression: Critically ill with hypoxemic respiratory failure and persistent large O2 gradient. Diffuse interstitial lung process with superimposed infiltrates. Unable to wean from ventilator. Converted to APRV. Appreciate input of Pulmonary Service. Prognosis poor. Critical care 36 mins Jai Ludwig MD Aug 19, 2017 12:08
[2017-08-19] MEDS ORDERED: RESP: ALBUTEROL 2.5 MG/3 ML NEB (PRN) NEB (12:15)
[2017-08-19] MEDS ORDERED: SODIUM CHLORID 0.9% 500 ML INJ 500 ML IV ONE ×2 (12:30→19:45)
[2017-08-19] MEDS ORDERED: DEXTROSE 50% IN WATER 50 ML VIAL(D50) IV PUSH PRN (12:30)
[2017-08-19] MEDS ORDERED: fentaNYL DRIP 250 ML IV PRN (12:30)
[2017-08-19] MEDS ORDERED: GLUCAGON 1 MG/ML VIAL OTHER PRN (12:30)
--- NOTE | 2017-08-19 12:44 | HHI.CCPN ---
Subjective Remarks/Hospital Course 57-year-old white female with a history of a longstanding COPD and rheumatoid arthritis and fibromyalgia, was admitted with pain and swelling of the left elbow. The patient apparently was out of town and tripped and fell on her elbow injuring the elbow and requiring sutures for a laceration. Subsequently she developed swelling and redness and cellulitis and the patient was then brought to the ER where she was noted to have cellulitis with an abscessed area and now was seen by orthopedics and placed on antibiotic coverage for soft tissue infection with a joint abscess. She also was hypoxic upon admission and has been placed on oxygen via nasal cannula at 3 liters and she does have a cough and her chest x-ray that was done showed acute pulmonary infiltrates. Today she was in severe respiratory distress on the [facility] floor and the rapid response was called. She was transferred immediately to ICU and was intubated shortly after arrival due to severe respiratory distress and hypoxemia. 08/15: Gas exchange impaired, diffuse infiltrates persist. 08/16: Gas exchange remains markedly impaired. We are in for a long haul on the ventilator. 08/17: Gas exchange remains markedly impaired, PEEP 10 elevated FiO2. Diffuse interstitial infiltrates persist (On home oxygen). Extensive right arm and shoulder region DVT. 08/18: Converted to APRV for persistent hypoxemia. Leukocytosis persists. 08/19: A-aO2 gradient gradually improving. Family has reasonable concerns about the length of time she will require mechanical ventilation. They are at odds with each other about the terms defined in her advanced directive. I have asked them to bring the document to us. At this point the patient is gradually improving and will undergo spontaneous breathing trials within a day or two. Subjective 08/20: Tmax 100.2. Switched over to PRVC ventilation today. Will check ABG this afternoon. Not tolerating tube feeds currently at 20 cc an hour. 2 BMs yesterday documented. Arousable and follows commands on sedation vacation. Objective Vital Signs Date Time Temp Pulse Resp B/P (MAP) Pulse Ox O2 Delivery O2 Flow Rate FiO2 08/19/17 10:15 26 08/19/17 10:00 130 08/19/17 08:00 50 08/19/17 08:00 100.2 114/61 (78) 97 08/19/17 07:00 Mechanical Ventilator Intake and Output 08/19/17 08/19/17 08/19/17 07:59 15:59 23:59 Intake Total 1090 ml 250 ml Output Total 400 ml Balance 690 ml 250 ml Result Diagram: 08/19/17 0610 08/19/17 0610 Other Results Microbiology Date/Time Source Procedure Growth Status 08/18/17 10:23 Blood Peripheral Aerobic Blood Culture - Preliminary NO GROWTH IN 1 DAY Resulted 08/18/17 10:23 Blood Peripheral Anaerobic Blood Culture - Preliminary NO GROWTH IN 1 DAY Resulted 08/17/17 10:50 Sputum Endotracheal Gram Stain - Final Complete 08/17/17 10:50 Sputum Endotracheal Sputum Culture - Final HEAVY GROWTH NORMAL RESPIRATORY OLMAN Complete 08/18/17 08:10 Urine Catheterized Urine Urine Culture - Preliminary NO GROWTH IN 24 HOURS. Resulted 08/07/17 19:48 Wound Elbow Fungal Smear - Final NO FUNGAL ELEMENTS SEEN. Resulted 08/07/17 19:48 Wound Elbow Fungal Culture - Preliminary NO GROWTH IN 1 WEEK Resulted Imaging Last Impressions Chest X-Ray 08/19/17 0000 Signed Impressions: Service Date/Time: Saturday, August 19, 2017 10:54 - CONCLUSION: Interval improvement particularly on the left. Naveed Sage MD FACR Upper Extremity Ultrasound 08/16/17 0000 Signed Impressions: Service Date/Time: Wednesday, August 16, 2017 13:39 - CONCLUSION: Extensive right upper extremity DVT Cleve Barnett MD Chest CT 08/10/17 0000 Signed Impressions: Service Date/Time: Thursday, August 10, 2017 17:36 - CONCLUSION: 1. Upper lobe predominant central emphysema with upper lobe predominant diffuse interstitial and groundglass opacities. Differential considerations include developing ARDS, atypical infection, pulmonary edema, sarcoidosis, and drug induced lung disease amongst other etiologies. 2. Trace right pleural effusion. Jovi Loaiza MD Elbow X-Ray 08/07/17 0000 Signed Impressions: Service Date/Time: Monday, August 07, 2017 13:12 - CONCLUSION: Joint effusion, no fracture Naveed Sage MD FACR Elbow MRI 08/07/17 0000 Signed Impressions: Service Date/Time: Monday, August 07, 2017 14:11 - CONCLUSION: Presumed inflammatory process mainly involving the brachialis. The joint is suspected to be infected as well. There is no osteomyelitis as yet. Neurovascular bundle is displaced medially there are brachial bifurcation findings have been discussed with Latosha FRANCOIS on today's date. Naveed Sage MD FACR Objective Remarks GENERAL: 57-year-old female, critically ill currently orotracheally intubated SKIN: Warm and dry. No rash HEAD: Normocephalic. EYES: No scleral icterus. No injection or drainage. NECK: Supple, trachea midline. Orally intubated. CARDIOVASCULAR: RRR. S1, S2. No S4. Without murmur RESPIRATORY: Coarse crackles appreciated throughout lung cabrera. No wheezing. GASTROINTESTINAL: Abdomen soft, non-tender, nondistended. BS active. MUSCULOSKELETAL: Status post excision and drainage of left elbow. Incision clean, dry. Right upper extremity edema 2+ NEURO EXAM: Moves 4 limbs. WENDY. Opens eyes. Follows simple commands Procedures Irrigation and debridement of left elbow Vascular Central Line Catheter: Yes Assessment to: Continue A/P Assessment and Plan Neuro/Psych: Fibromyalgia Depression/anxiety Patient is currently on propofol at 10 mg/kg per minute for sedation while intubated Added fentanyl drip as needed Goal of RA SS -2 Daily sedation vacation Continue doxepin 50 mill grams twice a day, fluoxetine 120 mg daily and bupropion 200 mg by mouth twice a day Continue gabapentin 300 mg morning and 600 mg at night CV: Patient is currently hemodynamic stable and not requiring vasopressors and/or antihypertensives Will bolus 500 cc normal saline 50 g albumin 1 for decreased urine output Resp: Acute hypoxemic respiratory failure secondary due to ILD/COPD PRVC 15/500/1.5/ Ventilator bundle Albuterol/ipratropium aerosols every 6 hours with albuterol aerosols every 2 hours when necessary dyspnea Add budesonide aerosols 0.5 mg/2 mL one inhalation twice a day Methylprednisolone 40 mg IV [address] Gonzalez - pulmonology is following Chest x-ray today revealed pulmonary fibrosis as interstitial lung disease without focal stricture pneumothorax Switch from bilevel today to PRVC/AC ventilation GI: Goals Glucerna 1.5 goal 50 cc an hour Pantoprazole GI prophylaxis Docusate sodium 200 mg twice a day/senna liquid 8.6 mg twice a day for bowel regimen Intolerance of tube feeding : Dee catheter has been placed for accurate I's and O's in a critically ill patient Endo: Hypothyroidism Continue levothyroxine 50 mcg daily Sliding-scale insulin with Accu-Cheks to maintain euglycemia/medium regimen of Novulin R while on steroids Rheum: RA Currently holding methotrexate 2.5 mg weekly. Continue folic acid 1 mg by mouth daily Renal: Acute kidney injury Creatinine currently 1.6 Bolus 500 cc normal saline 50 g albumin Vancomycin discontinued per infectious disease Check urine eosinophil/creatinine and sodium and renal ultrasound. Recheck BMP in a.m. Heme: Leukocytosis Macrocytic anemia Right upper extremity DVT Monitor CBC daily. Follow trends Ultrasound reveals nonocclusive thrombus right subclavian/axillary and occlusive thrombus radial/cephalic Currently on enoxaparin 80 mg subcutaneous twice a day ID: MRSA left elbow Currently on levofloxacin, cefepime and clindamycin per infectious disease FEN: Replace electrolytes as clinically indicated MSK: Status post ORIF left septic elbow 08/15 - MRSA Long-term antibiotics per infectious disease Access - Right IJ CVL Prophylaxis - GI - pantoprazole - DVT - SCD/enoxaparin 80 mg subcutaneous twice a day Critical Care: The total critical care time was 35 minutes. Time to perform other separately billable procedures was not included in the critical care time. Time in room for approximately 15 minutes discussing with , siblings and her brother. Discussed care plan from head to toe and patient's family expressed understanding. Her main question delta with questionable anesthesia causing her under sliding respiratory failure. I responded I couldn't get a definitive answer but likely not. She has significant underlying interstitial lung disease that likely contributing to her difficulty to liberate from the ventilator. Justin Srivastava MD Aug 19, 2017 12:44
[2017-08-19] MEDS ORDERED: ALBUMIN HUMAN 25% 25 GM/100 ML BAGP IV ONE (13:00)
[2017-08-19] MEDS: METOCLOPRAMIDE HCL 10 MG/2 ML VIAL IV PUSH SCH ×2 (13:23→20:37)
[2017-08-19] MEDS: CLINDAMYCIN 600 MG/NS 100 ML IV SCH ×4 (13:23→20:36)
[2017-08-19] MEDS: ARTIFICIAL TEARS OPTH SOLN 15 ML BTL EACH EYE SCH ×2 (13:24→20:37)
[2017-08-19] MEDS: RESP: ALBUTEROL 2.5 MG/IPRATROPIUM 0.5 MG NEB (SCH) NEB ×3 (15:52→22:52)
--- NOTE | 2017-08-19 15:54 | RADRPT ---
EXAM DATE/TIME: 08/19/2017 13:50 [facility] COMPARISON: No previous studies available for comparison. INDICATIONS : Increased BUN/creatinine. MEDICAL HISTORY : Diverticulitis. Arthritis. Thyroid disease. Migraines. COPD. Dyspnea. IBS. GERD. Fibromyalgia. PTSD . Anxiety. MRSA. SURGICAL HISTORY : Appendectomy. Cholecystectomy. Tubal ligation. Knee surgery. ENCOUNTER: Initial ACUITY: 1 day PAIN SCORE: Nonresponsive. LOCATION: Bilateral flank MEASUREMENTS: RIGHT KIDNEY: 12.7 x 7.7 x 5.0 cm LEFT KIDNEY: 11.1 x 5.0 x 7.0 cm FINDINGS: RIGHT KIDNEY: Minimally increased cortical echogenicity. Otherwise, normal in appearance without hydronephrosis, ma ss, or stone. LEFT KIDNEY: Minimally increased cortical echogenicity. Small anechoic cyst in the superior pole measuring 1.5 x 1 .4 x 1.4 cm. Questionable slightly hyperechoic solid mass in the mid left kidney measuring 1.2 x 1.4 x 1.0 cm. BLADDER: Decompressed secondary to Dee catheter. CONCLUSION: 1. Mildly increased renal cortical echogenicity consistent with medical renal disease. 2. Questionable minimally hyperechoic solid mass in the mid left kidney measuring 1.2 x 1.4 1.0 cm. F urther evaluation may be performed with CT or MRI renal mass protocol on an outpatient basis. Jovi Loaiza MD on August 19, 2017 at 15:48 Board Certified Radiologist. This report was verified electronically.
[2017-08-19] MEDS ORDERED: ROCURONIUM INJ 100 MG/10 ML VIAL IV ONE (17:15)
[2017-08-19] MEDS ORDERED: MIDAZOLAM HCL 5 MG/ML VIAL (1 ML) ONE (17:15)
[2017-08-19] MEDS ORDERED: ROCURONIUM INJ 50 MG/5 ML VIAL ONE (17:15)
[2017-08-19] MEDS ORDERED: EPINEPHrine HCL (1:10,000) 1 MG/10 ML SYRINGE IV ONE (17:15)
[2017-08-19] MEDS ORDERED: SODIUM BICARBONATE 8.4% INJ 50 MEQ/50 ML SYR IV PUSH ONE (17:15)
--- NOTE | 2017-08-19 17:52 | HHI.PR ---
Subjective Remarks Intubated and on Vent support , FIO2 at 40 %. Remains .Sedated. But more awake. Objective Vital Signs Date Time Temp Pulse Resp B/P (MAP) Pulse Ox O2 Delivery O2 Flow Rate FiO2 08/19/17 15:52 92 45 08/19/17 14:00 99 08/19/17 12:50 96 45 08/19/17 12:00 45 08/19/17 12:00 110 08/19/17 12:00 99.5 110 17 98/54 (69) 95 08/19/17 11:43 20 08/19/17 10:15 26 08/19/17 10:00 130 08/19/17 08:00 50 08/19/17 08:00 100.2 117 22 114/61 (78) 97 08/19/17 08:00 117 08/19/17 07:00 98 Mechanical Ventilator 50 08/19/17 06:00 116 08/19/17 04:48 99 45 08/19/17 04:00 114 08/19/17 04:00 50 08/19/17 04:00 99.3 105 19 92/54 (67) 99 08/19/17 02:00 107 08/19/17 00:28 98 45 08/19/17 00:00 116 08/19/17 00:00 99.7 109 18 94/59 (71) 100 08/19/17 00:00 50 08/18/17 22:00 110 08/18/17 20:39 98 50 08/18/17 20:00 100.0 116 13 105/60 (75) 97 08/18/17 20:00 116 08/18/17 20:00 50 08/18/17 19:00 99 Mechanical Ventilator 50 08/18/17 18:00 112 I/O 08/18/17 08/18/17 08/18/17 08/19/17 08/19/17 08/19/17 07:00 15:00 23:00 07:00 15:00 23:00 Intake Total 1070 ml 450 ml 1830 ml 1090 ml 854 ml Output Total 900 ml 475 ml 400 ml Balance 170 ml 450 ml 1355 ml 690 ml 854 ml IV Total 830 ml 450 ml 907 ml 920 ml 854 ml Tube Feeding 180 ml 143 ml 110 ml Other 60 ml 780 ml 60 ml Output Urine Total 900 ml 475 ml 400 ml # Bowel Movements 1 0 0 Result Diagram: 08/19/1760908/19/17609 Objective Remarks GENERAL: This is a averagely built middle-aged white female who is intubated HEENT: Head normocephalic. Pupils reactive and equal. Nasal mucosa edematous.clear.No thyroid enlargement or lymphadenopathy. CHEST: Decreased excursions. Expiratory wheezes scattered throughout both lung cabrera. Prolonged expirations.Bi basal crackles. HEART: The heart sounds are irregular, S1-S2. No definite murmur. No S3. ABDOMEN: The abdomen is protuberant and soft without masses or organomegaly or tenderness. EXTREMITIES: Mild joint deformities. There is mild peripheral edema. Peripheral pulses are felt. Reflexes are 1+ and she is sedated. SKIN: No lesions observed. Assessment and Plan Assessment and Plan IMPRESSION 1. COPD with emphysema and chronic bronchitis. 2. Cellulitis and left elbow joint infection. 3. Nicotine dependency. 4. History of rheumatoid arthritis and interstitial lung disease. 5. Fibromyalgia. 6. ARDS Plan : 1. Cont Nebs qid , duoneb. 2. Vent support and keep sedated. 3. Cont Antibiotics. 4. BMP CBC in am. 5. Cont Heparin S/Q 6. NG with feeds at 50 CC, jevity 7. Solumedrol 40 mg IV q12h 8. CPAP trial In am. Perla Gonzalez MD Aug 19, 2017 17:52
[2017-08-19] MEDS: INSULIN NovoLIN REGULAR SUPPLEMENTAL SCALE SQ SCH (18:00)
--- NOTE | 2017-08-19 19:15 | RADRPT ---
EXAM DATE/TIME: 08/19/2017 18:30 [place] COMPARISON: CHEST SINGLE AP, August 19, 2017, 10:54. INDICATIONS : Post bronchitis, hemoptysis MEDICAL HISTORY : Diverticulitis. Arthritis. Thyroid disease. Migraines. COPD. Dyspnea. IBS. GERD. Fibromyalgia. PTSD. Anxiety. MRSA. SURGICAL HISTORY : Appendectomy. Cholecystectomy. Tubal ligation. Knee surgery. ENCOUNTER: Subsequent ACUITY: 2 weeks PAIN SCORE: Non-responsive. LOCATION: chest FINDINGS: The cardiac silhouette is enlarged in transverse diameter. Support lines and tubes are in satisfactor y position. There are findings of acute pulmonary edema new when compared with earlier the same day. There is no evidence of pneumothorax. CONCLUSION: 1. Findings of acute pulmonary edema. This is new when compared with the prior exam. Ranjit Espinal MD on August 19, 2017 at 19:12 Board Certified Radiologist. This report was verified electronically.
[2017-08-19] MEDS: RESP: BUDESONIDE 0.5 MG/2 ML NEB NEB SCH (19:33)
[2017-08-19] MEDS: SENNOSIDES SYRUP 8.8 MG/5 ML CUP NG SCH (20:36)
[2017-08-19] MEDS: CHLORHEXIDINE 0.12% (ORAL KIT) 15 ML CUP MT SCH (20:36)
[2017-08-19] MEDS: DOCUSATE SODIUM 100 MG/10 ML UDC PO SCH (20:37)
[2017-08-19 21:10] LABS: BRONCHOALVEOLAR LAVAGE RBC 4355 /MM3; BRONCHOALVEOLAR LAVAGE WBC 165 /MM3; BRONCHOAVEOLAR HISTIOCYTES 18 %; BRONCHOAVEOLAR LYMPHOCYTES 8 %; BRONCHOAVEOLAR NEUTROPHILS 67 %; BRONCHOAVEOLAR PLASMA CELLS 4 %
[2017-08-19 21:11] LABS: LAVAGE TOTAL WBC COUNT 3.135 MILLION (4.700-7.100)
[2017-08-20] VITALS (21 sets, daily range): BP systolic 108–135; BP diastolic 51–94; PULSE 90–108; RESP 14; TEMP 97.5–98.8; O2SAT 93–100
--- NOTE | 2017-08-20 00:16 | PD.PROCEDR ---
Procedure Note Procedure DATE: 08/19/2017 Bronchoscopy diagnostic and therapeutic INDICATION: Bright red blood per ET tube CONSENT Informed consent for procedure was obtained. DESCRIPTION OF THE PROCEDURE The patient was placed in supine position. FiO2 on before meals the ventilator settings 100%. Patient was sedated with Versed drip after a 5 mg bolus and paralyzed with rocuronium 50 mg. I entered the 7.5 ET tube with bronchoscopy. The gregory was sharp. Left lower lobe revealed extremely friable mucosa. Left lower lobe had bloody secretions are easily suctioned. Signs of suction were appreciated in the left mainstem. Received aliquots of sodium bicarbonate and cold saline until bleeding stopped. Left upper lobe is appreciated with no bleeding. No masses are appreciated. Scope was withdrawn to the gregory. I entered the right upper, middle and lower lobes. Coated with hemorrhagic secretions. These were suctioned with sterile saline until clear. No obvious source of bleeding. Samples were obtained from the left lingula mucous plugs for sampling. No signs of mass or obstruction process. Scope was withdrawn without complication. Saturations remained between 90 and 100 % all times ESTIMATED BLOOD LOSS: Minimal COMPLICATIONS: No apparent complications. STAT chest x-ray pending at time of dictation Justin Srivastava MD Aug 20, 2017 00:16
[2017-08-20] MEDS: PROPOFOL 1000 MG/100 ML IV PRN ×4 (02:02→23:56)
[2017-08-20] MEDS: CEFEPIME INJ 2,000 MG in SODIUM CHLORIDE 0.9% INJ 100 ML IV SCH (02:02)
[2017-08-20] MEDS: RESP: ALBUTEROL 2.5 MG/IPRATROPIUM 0.5 MG NEB (SCH) NEB ×6 (03:05→23:33)
[2017-08-20 05:57] LABS: AUTOMATED NEUTROPHIL # 15.8 TH/MM3 (1.8-7.7); BASOPHIL % 0.2 % (0.0-2.0); EOSINOPHIL # 0.1 TH/MM3 (0-0.4); EOSINOPHIL % 0.3 % (0.0-4.0); HEMATOCRIT 21.9 % (35.0-46.0); LYMPH % 2.3 % (9.0-44.0); LYMPHOCYTE # 0.4 TH/MM3 (1.0-4.8); MEAN CELL VOLUME 101.9 FL (80.0-100.0); MEAN CORPUSCULAR HEMOGLOBIN 33.1 PG (27.0-34.0); MEAN CORPUSCULAR HGB CONC 32.5 % (32.0-36.0); MONO % 5.8 % (0.0-8.0); NEUT % 91.4 % (16.0-70.0); PLATELET COUNT 232 TH/MM3 (150-450); RED BLOOD COUNT 2.15 MIL/MM3 (4.00-5.30); RED CELL DISTRIBUTION WIDTH 15.1 % (11.6-17.2); WHITE BLOOD COUNT 17.2 TH/MM3 (4.0-11.0)
[2017-08-20] MEDS: INSULIN NovoLIN REGULAR SUPPLEMENTAL SCALE SQ SCH ×4 (06:00→18:00)
[2017-08-20] MEDS: METOCLOPRAMIDE HCL 10 MG/2 ML VIAL IV PUSH SCH ×3 (06:00→21:13)
[2017-08-20 06:04] LABS: HEMO FLAGS AUTO DIFF
[2017-08-20] MEDS: ARTIFICIAL TEARS OPTH SOLN 15 ML BTL EACH EYE SCH ×3 (06:10→21:15)
[2017-08-20] MEDS: CLINDAMYCIN 600 MG/NS 100 ML IV SCH ×6 (06:26→21:16)
[2017-08-20 06:31] LABS: MAGNESIUM 2.5 MG/DL (1.5-2.5); POTASSIUM 4.7 MEQ/L (3.5-5.1)
[2017-08-20 07:16] LABS: BANDS 12 % (0-6); METAMYELOCYTES 2 % (0-1); MYELOCYTES 1 % (0-0); NEUTROPHIL # MANUAL DIFF 16.9 TH/MM3 (1.8-7.7); PLATELET ESTIMATE SMEAR NORMAL (NORMAL); PLATELET MORPHOLOGY NORMAL (NORMAL); POLYS (SEG NEUTROPHILS) 83 % (16-70); SCAN/DIFF FINAL DIFF MANUAL; WBC DIFF SAMPLE 100
[2017-08-20] MEDS: CHLORHEXIDINE 0.12% (ORAL KIT) 15 ML CUP MT SCH ×2 (08:00→21:15)
[2017-08-20] MEDS: RESP: BUDESONIDE 0.5 MG/2 ML NEB NEB SCH ×2 (08:34→20:37)
[2017-08-20] MEDS: LEVOFLOXACIN 750 MG PREMIX INJ 150 ML IV SCH (08:35)
[2017-08-20] MEDS: PANTOPRAZOLE SODIUM 40 MG VIAL IV PUSH SCH (08:35)
[2017-08-20] MEDS: buPROPion HCL 100 MG SUSTAINED RELEASE TAB PO SCH ×2 (08:36→21:00)
[2017-08-20] MEDS: methylPREDNISolone SOD SUCC 40 MG/1 ML VIAL IV PUSH SCH ×2 (08:36→21:12)
[2017-08-20] MEDS: SENNOSIDES SYRUP 8.8 MG/5 ML CUP NG SCH ×2 (08:37→21:00)
[2017-08-20] MEDS: DOCUSATE SODIUM 100 MG/10 ML UDC PO SCH ×2 (08:37→21:00)
[2017-08-20] MEDS: FLUoxetine HCL 20 MG CAP PO SCH (08:37)
[2017-08-20] MEDS: GABAPENTIN 300 MG CAP PO SCH ×2 (08:37→21:12)
[2017-08-20] MEDS: CHOLECALCIFEROL (VIT D3) 1000 UNIT TAB PO SCH (08:37)
[2017-08-20] MEDS: DOXEPIN HCL 50 MG CAP PO SCH ×2 (08:37→21:12)
[2017-08-20] MEDS: POLYETHYLENE GLYCOL 17 GM PKG NG SCH (08:37)
[2017-08-20] MEDS: LEVOTHYROXINE SODIUM 50 MCG TAB PO SCH (08:37)
[2017-08-20] MEDS: FOLIC ACID 1 MG TAB PO SCH (08:37)
[2017-08-20] MEDS: guaiFENesin E.R. 600 MG TAB PO SCH ×2 (08:38→21:00)
[2017-08-20] MEDS: SODIUM CHLORIDE 0.9% FLUSH 10 ML FLUSH IV FLUSH SCH ×3 (08:39→21:14)
--- NOTE | 2017-08-20 09:59 | HHI.CCPN ---
Subjective Remarks/Hospital Course 57-year-old white female with a history of a longstanding COPD and rheumatoid arthritis and fibromyalgia, was admitted with pain and swelling of the left elbow. The patient apparently was out of town and tripped and fell on her elbow injuring the elbow and requiring sutures for a laceration. Subsequently she developed swelling and redness and cellulitis and the patient was then brought to the ER where she was noted to have cellulitis with an abscessed area and now was seen by orthopedics and placed on antibiotic coverage for soft tissue infection with a joint abscess. She also was hypoxic upon admission and has been placed on oxygen via nasal cannula at 3 liters and she does have a cough and her chest x-ray that was done showed acute pulmonary infiltrates. Today she was in severe respiratory distress on the [facility] floor and the rapid response was called. She was transferred immediately to ICU and was intubated shortly after arrival due to severe respiratory distress and hypoxemia. 08/15: Gas exchange impaired, diffuse infiltrates persist. 08/16: Gas exchange remains markedly impaired. We are in for a long haul on the ventilator. 08/17: Gas exchange remains markedly impaired, PEEP 10 elevated FiO2. Diffuse interstitial infiltrates persist (On home oxygen). Extensive right arm and shoulder region DVT. 08/18: Converted to APRV for persistent hypoxemia. Leukocytosis persists. 08/19: A-aO2 gradient gradually improving. Family has reasonable concerns about the length of time she will require mechanical ventilation. They are at odds with each other about the terms defined in her advanced directive. I have asked them to bring the document to us. At this point the patient is gradually improving and will undergo spontaneous breathing trials within a day or two. 08/19: Tmax 100.2. Switched over to PRVC ventilation today. Will check ABG this afternoon. Not tolerating tube feeds currently at 20 cc an hour. 2 BMs yesterday documented. Arousable and follows commands on sedation vacation. Subjective 08/20: Yesterday, brought for hemoptysis. Suction trauma noted in the left main bronchus. Status post cold saline/sodium bicarbonate. Hemoglobin dropped from 9.8-7.1. No obvious source of bleeding. Denies abdominal pain. CT abdomen/pelvis pending. Rule out retroperitoneal bleed. Tolerating tube feeding. Hemolysis workup in process. Also noted, creatinine currently elevated at 3.3. Urine eosinophils were yesterday not performed. RN notified. Will do stat. Renal ultrasound revealed medical renal disease, left renal mass. Objective Vital Signs Date Time Temp Pulse Resp B/P (MAP) Pulse Ox O2 Delivery O2 Flow Rate FiO2 08/20/17 08:27 95 50 08/20/17 06:00 94 08/20/17 04:00 98.1 14 116/56 (76) 08/19/17 20:00 Mechanical Ventilator Intake and Output 08/20/17 08/20/17 08/21/17 08:00 16:00 00:00 Intake Total 125 ml Output Total 400 ml Balance -275 ml Result Diagram: 08/20/17 0548 08/20/17 0548 Other Results Microbiology Date/Time Source Procedure Growth Status 08/18/17 10:23 Blood Peripheral Aerobic Blood Culture - Preliminary NO GROWTH IN 1 DAY Resulted 08/18/17 10:23 Blood Peripheral Anaerobic Blood Culture - Preliminary NO GROWTH IN 1 DAY Resulted 08/19/17 17:50 Bronchial Washings Left Lower Lobe Fungal Smear Pending Received 08/19/17 17:50 Bronchial Washings Left Lower Lobe Fungal Culture Pending Received 08/18/17 08:10 Urine Catheterized Urine Urine Culture - Preliminary NO GROWTH IN 24 HOURS. Resulted 08/07/17 19:48 Wound Elbow Fungal Smear - Final NO FUNGAL ELEMENTS SEEN. Resulted 08/07/17 19:48 Wound Elbow Fungal Culture - Preliminary NO GROWTH IN 1 WEEK Resulted Imaging Last Impressions Renal Ultrasound 08/19/17 0000 Signed Impressions: Service Date/Time: Saturday, August 19, 2017 13:50 - CONCLUSION: 1. Mildly increased renal cortical echogenicity consistent with medical renal disease. 2. Questionable minimally hyperechoic solid mass in the mid left kidney measuring 1.2 x 1.4 1.0 cm. Further evaluation may be performed with CT or MRI renal mass protocol on an outpatient basis. Jovi Loaiza MD Chest X-Ray 08/19/17 0000 Signed Impressions: Service Date/Time: Saturday, August 19, 2017 18:30 - CONCLUSION: 1. Findings of acute pulmonary edema. This is new when compared with the prior exam. Ranjit Espinal MD Upper Extremity Ultrasound 08/16/17 0000 Signed Impressions: Service Date/Time: Wednesday, August 16, 2017 13:39 - CONCLUSION: Extensive right upper extremity DVT Cleve Barnett MD Chest CT 08/10/17 0000 Signed Impressions: Service Date/Time: Thursday, August 10, 2017 17:36 - CONCLUSION: 1. Upper lobe predominant central emphysema with upper lobe predominant diffuse interstitial and groundglass opacities. Differential considerations include developing ARDS, atypical infection, pulmonary edema, sarcoidosis, and drug induced lung disease amongst other etiologies. 2. Trace right pleural effusion. Jovi Loaiza MD Elbow X-Ray 08/07/17 0000 Signed Impressions: Service Date/Time: Monday, August 07, 2017 13:12 - CONCLUSION: Joint effusion, no fracture Naveed Sage MD FACR Elbow MRI 08/07/17 0000 Signed Impressions: Service Date/Time: Monday, August 07, 2017 14:11 - CONCLUSION: Presumed inflammatory process mainly involving the brachialis. The joint is suspected to be infected as well. There is no osteomyelitis as yet. Neurovascular bundle is displaced medially there are brachial bifurcation findings have been discussed with Latosha FRANCOIS on today's date. Naveed Sage MD FACR Objective Remarks GENERAL: 57-year-old female, critically ill currently orotracheally intubated SKIN: Warm and dry. No rash HEAD: Normocephalic. EYES: No scleral icterus. No injection or drainage. NECK: Supple, trachea midline. Orally intubated. CARDIOVASCULAR: RRR. S1, S2. No S4. Without murmur RESPIRATORY: Coarse crackles appreciated throughout lung cabrera. No wheezing. GASTROINTESTINAL: Abdomen soft, non-tender, nondistended. BS active. MUSCULOSKELETAL: Status post excision and drainage of left elbow. Incision clean, dry. Right upper extremity edema 2+ NEURO EXAM: Moves 4 limbs. WENDY. Opens eyes. Follows simple commands Procedures Irrigation and debridement of left elbow A/P Assessment and Plan Neuro/Psych: Fibromyalgia Depression/anxiety Patient is currently on propofol at 25 mcg/kg per minute for sedation while intubated Added fentanyl drip as needed Goal of RA SS -2 Daily sedation vacation Continue doxepin 50 mill grams twice a day, fluoxetine 120 mg daily and bupropion 200 mg by mouth twice a day for depression/anxiety Continue gabapentin 300 mg morning and decreased from 600 mg to 300mg at night CV: Patient is currently hemodynamic stable and not requiring vasopressors and/or antihypertensives Will bolus 1000 cc normal saline for decreased urine output Resp: Acute hypoxemic respiratory failure secondary due to ILD/COPD Hemoptysis PC/AC rate 14. Inspiratory pressure 16. PEEP 8. Inspiratory time 2.1. FiO2 50% Ventilator bundle Albuterol/ipratropium aerosols every 6 hours with albuterol aerosols every 2 hours when necessary dyspnea Add budesonide aerosols 0.5 mg/2 mL one inhalation twice a day Methylprednisolone 40 mg IV 3 times a day will be continued Dr. Gonzalez - pulmonology is following Chest x-ray yesterday revealed pulmonary fibrosis as interstitial lung disease without focal pneumothorax. Repeat after bronchoscopy revealed pulmonary edema? Status post bronchoscopy yesterday for hemoptysis. There was some suction trauma with cessation of bleeding with cold saline/sodium bicarbonate GI: Goals Glucerna 1.5 goal 50 cc an hour currently at 10 cc an hour due to residuals have 150? Pantoprazole GI prophylaxis Docusate sodium 200 mg twice a day/senna liquid 8.6 mg twice a day for bowel regimen Intolerance of tube feeding : Dee catheter has been placed for accurate I's and O's in a critically ill patient Endo: Hypothyroidism Continue levothyroxine 50 mcg daily Sliding-scale insulin with Accu-Cheks to maintain euglycemia/medium regimen of Novulin R while on steroids Rheum: RA Currently holding methotrexate 2.5 mg weekly. Likely resume when clinically indicated Continue folic acid 1 mg by mouth daily Renal: Acute kidney injury Left renal mass Urine output 600 cc past 24 hours. 400 cc past 12 hours. Creatinine currently 1.6 - 3.3 Bolus 500 cc normal saline 50 g albumin Vancomycin discontinued per infectious disease Check urine eosinophil/creatinine and sodium Renal ultrasound revealed medical renal disease with cortical thickening. Left renal mass 1.2 x 1.4 x 1 70. Recommend a follow-up MRI/CT outpatient Recheck BMP in a.m. Check complements and ANCA. Nephrology consultation. Possible hemodialysis for the next 48 hours patient is Heme: Leukocytosis Macrocytic anemia Right upper extremity DVT Monitor CBC daily. Follow trends Ultrasound reveals nonocclusive thrombus right subclavian/axillary and occlusive thrombus radial/cephalic Yesterday held enoxaparin 80 mg subcutaneous twice a day in light of hemoptysis Recheck hemoglobin at 1400 hrs. Check LDH/haptoglobin and peripheral smear. Check CT abdomen/pelvis rule out retroperitoneal hematoma ID: MRSA left elbow Currently on levofloxacin, cefepime and clindamycin per infectious disease Vancomycin discontinued 08/19 FEN: Replace electrolytes as clinically indicated MSK: Status post ORIF left septic elbow 07/28 - MRSA Long-term antibiotics per infectious disease Access - Right IJ CVL Prophylaxis - GI - pantoprazole - DVT - SCD/enoxaparin 80 mg subcutaneous twice a day held in light of hemoptysis and anemia Critical Care: The total critical care time was 35 minutes. Time to perform other separately billable procedures was not included in the critical care time. Discussed with son and daughter at bedside. Discussed acute kidney injury and possibly hemodialysis with consultation nephrology. Discussed CT abdomen/ pelvis rule out retroperitoneal hematoma. They expressed understanding. Care plan discussed all questions answered. Justin Srivastava MD Aug 20, 2017 09:59
[2017-08-20] MEDS ORDERED: SODIUM CHLOR 0.9% 1000 ML INJ 1,000 ML IV SCH (10:00)
[2017-08-20] MEDS ORDERED: SODIUM CHLOR 0.9% 1000 ML INJ 1,000 ML IV ONE (10:00)
[2017-08-20 11:00] LABS: APTT (PATIENT) 29.9 SEC (24.3-30.1); INTERNATIONAL NORMALIZED RATIO 1.1 RATIO; PROTHROMBIN TIME - PATIENT 12.5 SEC (9.8-11.6)
--- NOTE | 2017-08-20 12:20 | PD.CONS ---
HPI Service Nephrology Consult Requested By Reason for Consult Acute renal failure Primary Care Physician No Primary Care Physician History of Present Illness This is a 57 y/o female patient admitted on 08/07 for left elbow infection following a fall several weeks prior. She is currently intubated and unable to provide any details but her daughter is present. Her renal function had been normal until the 19 of August, at which time her creatinine glenroy to 1.69 from 0.51, and today it is 3.58. She is not making much urine. Her BP has been borderline low, she is not on pressors. She is requiring 50% FiO2. Her wieght is up 5 kg since admission and she appears fluid overloaded. She had cultures positive for MRSA, and was on vancomycin until 08/19. Her vancomycin levels have been elevated. She also has worsening anemia with some hemoptysis and had a recent bronchoscopy. Of note her imaging showed left sided renal mass that is new. We were consulted for renal management. (Yanely Lipscomb) Review of Systems ROS Limitations: Altered Mental Status, Unresponsive (Yanely Lipscomb) Past Family Social History Allergies: Coded Allergies: No Known Allergies (Unverified , 08/07/17) Past Medical History RA Hypothyroidism GERD Depression Fibromyalgia Neuropathy Past Surgical History Unable to obtain Reported Medications Zofran (Ondansetron HCl) 4 Mg Tab 4 Mg PO Q12HR PRN Doxepin (Doxepin HCl) 50 Mg Cap 50 Mg PO BID Zinc Gluconate 50 Mg Tab 50 Mg PO DAILY Humira 2-Pack Inj (Adalimumab 2-Pack Inj) 40 Mg/0.8 Ml Syr 40 Mg SQ Q14D Prednisone 20 Mg Tab 20 Mg PO DIRECTED 40 MG twice a day x 3 days, then 20 MG daily x 3 days, then 10 MG daily x 3 days Proair Hfa 8.5 GM Inh (Albuterol Sulfate) 90 Mcg/Act Aer 1 Puff INH Q4H PRN 108 mcg/actuation Dulera 120 Act Inh (Mometasone-Formoterol 120 Act Inh) 200-5 Mcg/Act Inh 2 Puff INH BID Folic Acid 0.8 Mg Tab 1,000 Mcg PO DAILY Levothyroxine (Levothyroxine Sodium) 50 Mcg Tab 50 Mcg PO DAILY Vitamin D-1000 (Cholecalciferol) 1,000 Unit Tab 1,000 Units PO DAILY Methotrexate 2.5 Mg Tab 2.5 Mg PO Q7D Wellbutrin Xl 24 HR (Bupropion HCl) 150 Mg Tab 150 Mg PO DAILY Wellbutrin Xl 24 HR (Bupropion HCl) 300 Mg Tab 300 Mg PO DAILY Naproxen Sodium 220 Mg Tab 300 Mg PO BID PRN Propranolol (Propranolol HCl) 60 Mg Tab 60 Mg PO Q6HR PRN Prozac (Fluoxetine HCl) 40 Mg Cap 120 Mg PO DAILY Prevacid (Lansoprazole) 30 Mg Capdr 30 Mg PO DAILY Gabapentin 600 Mg Tab 600 Mg PO HS Gabapentin 300 Mg Cap 300 Mg PO DAILY Active Ordered Medications Current Medications Medications (Trade) Dose Ordered Sig/Leon Route Start Time Stop Time Status Last Admin (Catapres) 0.1 mg Q4H PRN PO 08/07/17 16:45 (Tylenol) 650 mg Q4H PRN PO 08/07/17 16:45 08/19/17 10:43 (Zofran Inj) 4 mg Q6H PRN IVP 08/07/17 16:45 (Compazine Supp) 25 mg Q12H PRN RECTAL 08/07/17 16:45 (Ambien) 5 mg HS PRN PO 08/07/17 16:45 08/12/17 21:58 (Tylenol) 650 mg Q6H PRN PO 08/07/17 16:45 08/11/17 21:13 (Percocet 5-325 Mg) 1 tab Q6H PRN PO 08/07/17 16:45 Future Hold 08/10/17 18:32 (Percocet 10-325 Mg) 1 tab Q6H PRN PO 08/07/17 16:45 Future Hold 08/18/17 03:43 (Narcan Inj) 0.4 mg UNSCH PRN IV PUSH 08/07/17 16:45 (Milk Of Magnesia Liq) 30 ml Q12H PRN PO 08/07/17 16:45 (Senokot) 17.2 mg Q12H PRN PO 08/07/17 16:45 (Dulcolax Supp) 10 mg DAILY PRN RECTAL 08/07/17 16:45 (Lactulose Liq) 30 ml DAILY PRN PO 08/07/17 16:45 (Vitamin D3) 1,000 units DAILY PO 08/08/17 09:00 08/20/17 08:37 (SINEquan) 50 mg BID PO 08/07/17 21:00 08/20/17 08:37 (Folate) 1 mg DAILY PO 08/08/17 09:00 08/20/17 08:37 (Neurontin) 300 mg DAILY PO 08/08/17 09:00 08/20/17 08:37 (Synthroid) 50 mcg DAILY PO 08/08/17 09:00 08/20/17 08:37 (Rheumatrex) 2.5 mg Q7D PO 08/13/17 09:00 Future Hold Non-Formulary Medication 2 puff BID INH 08/07/17 21:00 Future Hold 08/14/17 09:00 (Zofran Odt) 4 mg Q12HR PRN PO 08/07/17 16:45 (Inderal) 60 mg Q6HR PRN PO 08/07/17 16:45 Future Hold (Mucinex Er) 600 mg BID PO 08/07/17 21:00 08/19/17 20:37 (Wellbutrin Sr 12 Hr) 200 mg BID PO 08/08/17 09:00 08/20/17 08:36 (PROzac) 120 mg DAILY PO 08/08/17 17:15 08/20/17 08:37 (NS Flush) See Protocol DAILY IV FLUSH 08/10/17 09:00 08/18/17 07:35 (NS Flush) See Protocol UNSCH PRN IV FLUSH 08/09/17 20:00 (Heparin Central Flush) See Protocol DAILY IV FLUSH 08/10/17 09:00 08/20/17 08:36 (Heparin Central Flush) See Protocol UNSCH PRN IV FLUSH 08/09/17 20:00 (NS Flush) UNSCH PRN IV FLUSH 08/09/17 20:00 (NS Flush) 2 ml UNSCH PRN IV FLUSH 08/10/17 11:15 (NS Flush) 2 ml BID IV FLUSH 08/10/17 21:00 08/19/17 20:38 Levofloxacin/ Dextrose 150 ml @ 100 mls/hr Q24H IV 08/11/17 08:00 08/20/17 08:35 (Xanax) 0.125 mg Q8HR PRN PO 08/12/17 16:30 Future Hold 08/17/17 15:23 (Apresoline) 10 mg Q6HR PRN PO 08/14/17 08:30 Propofol 100 ml @ 2.505 mls/ hr TITRATE PRN IV 08/14/17 20:15 08/20/17 10:30 (Protonix Inj) 40 mg DAILY IV PUSH 08/16/17 09:00 08/20/17 08:35 (Lovenox Inj) 80 mg Q12HR SQ 08/17/17 09:00 Future Hold 08/19/17 08:54 (Duoneb Neb) 1 ampule Q4HR NEB NEB 08/19/17 16:00 08/20/17 12:04 (Albuterol Neb) 2.5 mg Q2HR NEB PRN NEB 08/19/17 12:15 (Colace Liq) 100 mg Q12HR PO 08/19/17 21:00 08/19/17 20:37 (Senna Liq) 8.8 mg BID NG 08/19/17 21:00 08/19/17 20:36 (Miralax) 17 gm DAILY NG 08/20/17 09:00 (Reglan Inj) 5 mg Q8HR IV PUSH 08/19/17 14:00 08/19/17 20:37 (Tears Naturale Opth Soln) 1 drop Q8HR EACH EYE 08/19/17 14:00 08/20/17 06:10 (Pulmicort Respule Neb) 0.5 mg Q12HR NEB NEB 08/19/17 20:00 08/20/17 08:34 Fentanyl Citrate 250 ml @ 5 mls/hr TITRATE PRN IV 08/19/17 12:30 (Peridex 0.12% Liq) 15 ml BID@08,20 MT 08/19/17 20:00 08/20/17 08:00 (D50w (Vial) Inj) 50 ml UNSCH PRN IV PUSH 08/19/17 12:30 (Glucagon Inj) 1 mg UNSCH PRN OTHER 08/19/17 12:30 (NovoLIN R SUPPLEMENTAL SCALE) 1 Q6HR SQ 08/19/17 18:00 Clindamycin Phosphate 600 mg/ Sodium Chloride 104 ml @ 208 mls/hr Q8H IV 08/19/17 13:00 08/20/17 06:26 (SoluMEDROL INJ) 40 mg BID IV PUSH 08/19/17 21:00 08/20/17 08:36 Cefepime HCl 2000 mg/Sodium Chloride 100 ml @ 200 mls/hr Q24H IV 08/21/17 02:00 (Phoslo) 667 mg TID PO 08/20/17 13:00 (Neurontin) 300 mg HS PO 08/20/17 21:00 Sodium Chloride 1,000 ml @ 100 mls/hr Q10H IV 08/20/17 10:00 08/20/17 10:00 Family History No hx of renal disorders Social History Per the daughter, the patient smoked heavily From [place], moved her recently Lives with friends currently Former heavy ETOH (Yanely Lipscomb) Physical Exam Vital Signs Vital Signs Date Time Temp Pulse Resp B/P (MAP) Pulse Ox O2 Delivery O2 Flow Rate FiO2 08/20/17 12:04 95 40 08/20/17 10:00 100 08/20/17 08:27 95 50 08/20/17 08:00 92 08/20/17 08:00 60 08/20/17 08:00 98.2 92 14 108/51 (70) 97 08/20/17 07:00 98 Mechanical Ventilator 50 08/20/17 06:00 94 08/20/17 04:37 98 40 08/20/17 04:15 98 50 08/20/17 04:00 91 08/20/17 04:00 98.1 93 14 116/56 (76) 97 08/20/17 04:00 60 08/20/17 02:00 92 08/20/17 01:05 96 50 08/20/17 00:00 95 08/20/17 00:00 98.8 95 14 112/53 (72) 96 08/20/17 00:00 60 08/19/17 22:00 96 08/19/17 20:00 95 08/19/17 20:00 100 Mechanical Ventilator 50 08/19/17 20:00 98.6 94 14 111/55 (73) 99 08/19/17 20:00 60 08/19/17 19:30 97 40 08/19/17 18:04 98 60 08/19/17 18:00 70 08/19/17 17:15 100 100 08/19/17 16:00 100 08/19/17 16:00 98.6 100 15 131/60 (83) 88 08/19/17 16:00 45 08/19/17 15:52 92 45 08/19/17 14:00 99 08/19/17 12:50 96 45 Physical Exam GENERAL: Middle aged female, intubated, unresponsive SKIN: Warm and dry. No rash HEAD: Normocephalic. EYES: No scleral icterus. No injection or drainage. NECK: Supple, trachea midline. Orally intubated. RIJ TLC CARDIOVASCULAR: RRR. S1, S2. No S4 or murmur heard. RESPIRATORY:scattered rales throughout lung cabrera. No wheezing. Decreased in bases. GASTROINTESTINAL: Abdomen soft, non-tender, nondistended. BS active. MUSCULOSKELETAL: s/p excision and drainage of left elbow. Incision clean, dry. bilateral upper extremity edema 2+ NEURO EXAM: eyes closed, moves to stimuli Laboratory Laboratory Tests Test 08/19/17 17:50 08/20/17 05:48 08/20/17 09:25 08/20/17 10:25 Bronchoalveolar Lavage WBC 165 Bronchoalveolar Lavage RBC 4355 Bronchoalveolar Lavage Neutrophils 67 Bronchoalveolar Lavage Lymphocytes 8 Bronchoalveolar Lavage Plasma Cells 4 Bronchoalveolar Lavage Histiocytes 18 Lavage Fluid Total Volume 19.0 Lavage Fluid Total WBC Count 3.135 White Blood Count 17.2 Red Blood Count 2.15 Hemoglobin 7.1 7.0 Hematocrit 21.9 Mean Corpuscular Volume 101.9 Mean Corpuscular Hemoglobin 33.1 Mean Corpuscular Hemoglobin Concent 32.5 Red Cell Distribution Width 15.1 Platelet Count 232 Mean Platelet Volume 8.8 Neutrophils (%) (Auto) 91.4 Lymphocytes (%) (Auto) 2.3 Monocytes (%) (Auto) 5.8 Eosinophils (%) (Auto) 0.3 Basophils (%) (Auto) 0.2 Neutrophils # (Auto) 15.8 Lymphocytes # (Auto) 0.4 Monocytes # (Auto) 1.0 Eosinophils # (Auto) 0.1 Basophils # (Auto) 0.0 CBC Comment AUTO DIFF Differential Total Cells Counted 100 Neutrophils % (Manual) 83 Band Neutrophils % 12 Monocytes % 2 Neutrophils # (Manual) 16.9 Metamyelocytes 2 Myelocytes 1 Differential Comment FINAL DIFF MANUAL Platelet Estimate NORMAL Platelet Morphology Comment NORMAL Blood Urea Nitrogen 75 Creatinine 3.38 Random Glucose 93 Calcium Level 7.9 Phosphorus Level 8.4 Magnesium Level 2.5 Sodium Level 140 Potassium Level 4.7 Chloride Level 104 Carbon Dioxide Level 23.0 Anion Gap 13 Estimat Glomerular Filtration Rate 14 Urine Eosinophils NONE SEEN Blood Smear Pathologist Review Haptoglobin 335 Prothrombin Time 12.5 Prothromb Time International Ratio 1.1 Activated Partial Thromboplast Time 29.9 Fibrinogen 460 Urine Random Creatinine 41.7 Urine Random Sodium 66 Lactate Dehydrogenase 421 Complement C3 84 Complement C4 7 Date/Time Source Procedure Growth Status 08/18/17 10:23 Blood Peripheral Aerobic Blood Culture - Preliminary NO GROWTH IN 2 DAYS Resulted 08/18/17 10:23 Blood Peripheral Anaerobic Blood Culture - Preliminary NO GROWTH IN 2 DAYS Resulted 08/19/17 17:50 Bronchial Washings Left Lower Lobe Fungal Smear Pending Received 08/19/17 17:50 Bronchial Washings Left Lower Lobe Fungal Culture Pending Received 08/18/17 08:10 Urine Catheterized Urine Urine Culture - Preliminary NO GROWTH IN 24 HOURS. Resulted 08/07/17 19:48 Wound Elbow Fungal Smear - Final NO FUNGAL ELEMENTS SEEN. Resulted 08/07/17 19:48 Wound Elbow Fungal Culture - Preliminary NO GROWTH IN 1 WEEK Resulted (Yanely Lipscomb) Result Diagram: 08/20/17 1025 08/20/17 0548 Imaging Last Impressions Renal Ultrasound 08/19/17 0000 Signed Impressions: Service Date/Time: Saturday, August 19, 2017 13:50 - CONCLUSION: 1. Mildly increased renal cortical echogenicity consistent with medical renal disease. 2. Questionable minimally hyperechoic solid mass in the mid left kidney measuring 1.2 x 1.4 1.0 cm. Further evaluation may be performed with CT or MRI renal mass protocol on an outpatient basis. Jovi Loaiza MD Chest X-Ray 08/19/17 0000 Signed Impressions: Service Date/Time: Saturday, August 19, 2017 18:30 - CONCLUSION: 1. Findings of acute pulmonary edema. This is new when compared with the prior exam. Ranjit Espinal MD Upper Extremity Ultrasound 08/16/17 0000 Signed Impressions: Service Date/Time: Wednesday, August 16, 2017 13:39 - CONCLUSION: Extensive right upper extremity DVT Cleve Barnett MD Chest CT 08/10/17 0000 Signed Impressions: Service Date/Time: Thursday, August 10, 2017 17:36 - CONCLUSION: 1. Upper lobe predominant central emphysema with upper lobe predominant diffuse interstitial and groundglass opacities. Differential considerations include developing ARDS, atypical infection, pulmonary edema, sarcoidosis, and drug induced lung disease amongst other etiologies. 2. Trace right pleural effusion. Jovi Loaiza MD Elbow X-Ray 08/07/17 0000 Signed Impressions: Service Date/Time: Monday, August 07, 2017 13:12 - CONCLUSION: Joint effusion, no fracture Naveed Sage MD FACR Elbow MRI 08/07/17 0000 Signed Impressions: Service Date/Time: Monday, August 07, 2017 14:11 - CONCLUSION: Presumed inflammatory process mainly involving the brachialis. The joint is suspected to be infected as well. There is no osteomyelitis as yet. Neurovascular bundle is displaced medially there are brachial bifurcation findings have been discussed with Latosha FRANCOIS on today's date. Naveed Sage MD FACR (Yanely Lipscomb) Assessment and Plan Problem List: (1) Acute renal failure ICD Codes: N17.9 - Acute kidney failure, unspecified Plan: She has normal renal function at baseline Differentials for renal failure may be sepsis syndrome with hypotension; vancomycin induced nephrotoxicity is also a consideration At this time her urine output has slowed Stop IVF, start Bumex 2 mg BID and monitor response If no improvement in next 24 hrs she will likely need dialysis, D/W daughter Avoid nephrotoxins, antibiotics have been changed Follow fluid status, has evidence of fluid overload currently Repeat labs in AM (2) Joint infection ICD Codes: M00.9 - Pyogenic arthritis, unspecified Status: Acute Plan: ID is following s/p I&D on 08/07 On cefepime, clindamycin, and levaquin currently (Yanely Lipscomb) Assessment and Plan patient was seen and examined. ROLAND could be due to Vancomycin induced nephrotoxicity, AIN, ATN from infection/sepsis. She demonstrates fluid overload. Stop IVF, start diuresis. May need dialysis in the next 24 hours. Discussed with patient's daughter. Patient has history of Alcohol abuse. Had used cocaine in the past. (Jaime Moya MD) Yanely Lipscomb Aug 20, 2017 12:20 Jaime Moya MD Aug 20, 2017 17:07
--- NOTE | 2017-08-20 12:23 | HHI.IDPN ---
Subjective Subjective Remarks sp BAL yday for a hemoptysis UOP slightly better creatinine 3.3 urine eos neg renal US showed minimally hyperechoic solid mass in the mid left kidney measuring 1.2 x 1.4 1.0 cm. Further evaluation may be performed with CT or MRI renal mass Antibiotics cefepime l;evaquine clindamycin Allergies: Coded Allergies: No Known Allergies (Unverified , 08/07/17) Objective . Vital Signs Date Time Temp Pulse Resp B/P (MAP) Pulse Ox O2 Delivery O2 Flow Rate FiO2 08/20/17 12:04 95 40 08/20/17 10:00 100 08/20/17 08:27 95 50 08/20/17 08:00 92 08/20/17 08:00 60 08/20/17 08:00 98.2 92 14 108/51 (70) 97 08/20/17 07:00 98 Mechanical Ventilator 50 08/20/17 06:00 94 08/20/17 04:37 98 40 08/20/17 04:15 98 50 08/20/17 04:00 91 08/20/17 04:00 98.1 93 14 116/56 (76) 97 08/20/17 04:00 60 08/20/17 02:00 92 08/20/17 01:05 96 50 08/20/17 00:00 95 08/20/17 00:00 98.8 95 14 112/53 (72) 96 08/20/17 00:00 60 08/19/17 22:00 96 08/19/17 20:00 95 08/19/17 20:00 100 Mechanical Ventilator 50 08/19/17 20:00 98.6 94 14 111/55 (73) 99 08/19/17 20:00 60 08/19/17 19:30 97 40 08/19/17 18:04 98 60 08/19/17 18:00 70 08/19/17 17:15 100 100 08/19/17 16:00 100 08/19/17 16:00 98.6 100 15 131/60 (83) 88 08/19/17 16:00 45 08/19/17 15:52 92 45 08/19/17 14:00 99 08/19/17 12:50 96 45 08/20/17 08/20/17 08/21/17 15:00 23:00 07:00 Intake Total 1150 ml Balance 1150 ml IV Total 1150 ml . Laboratory Tests Test 08/19/17 06:10 08/20/17 05:48 08/20/17 10:25 White Blood Count 23.1 TH/MM3 17.2 TH/MM3 Red Blood Count 2.99 MIL/MM3 2.15 MIL/MM3 Hemoglobin 9.8 GM/DL 7.1 GM/DL 7.0 GM/DL Hematocrit 31.4 % 21.9 % Mean Corpuscular Volume 104.7 FL 101.9 FL Mean Corpuscular Hemoglobin 32.9 PG 33.1 PG Mean Corpuscular Hemoglobin Concent 31.4 % 32.5 % Red Cell Distribution Width 15.0 % 15.1 % Platelet Count 280 TH/MM3 232 TH/MM3 Mean Platelet Volume 8.9 FL 8.8 FL Neutrophils (%) (Auto) 89.5 % 91.4 % Lymphocytes (%) (Auto) 4.4 % 2.3 % Monocytes (%) (Auto) 4.1 % 5.8 % Eosinophils (%) (Auto) 1.9 % 0.3 % Basophils (%) (Auto) 0.1 % 0.2 % Neutrophils # (Auto) 20.7 TH/MM3 15.8 TH/MM3 Lymphocytes # (Auto) 1.0 TH/MM3 0.4 TH/MM3 Monocytes # (Auto) 0.9 TH/MM3 1.0 TH/MM3 Eosinophils # (Auto) 0.4 TH/MM3 0.1 TH/MM3 Basophils # (Auto) 0.0 TH/MM3 0.0 TH/MM3 CBC Comment AUTO DIFF AUTO DIFF Differential Total Cells Counted 100 100 Neutrophils % (Manual) 79 % 83 % Band Neutrophils % 3 % 12 % Lymphocytes % 6 % Monocytes % 6 % 2 % Eosinophils % 3 % Neutrophils # (Manual) 19.6 TH/MM3 16.9 TH/MM3 Metamyelocytes 2 % 2 % Myelocytes 1 % 1 % Differential Comment FINAL DIFF MANUAL FINAL DIFF MANUAL Platelet Estimate NORMAL NORMAL Platelet Morphology Comment NORMAL NORMAL Blood Smear Pathologist Review Haptoglobin 335 MG/DL Laboratory Tests Test 08/19/17 06:10 08/20/17 05:48 08/20/17 10:25 Blood Urea Nitrogen 41 MG/DL 75 MG/DL Creatinine 1.69 MG/DL 3.38 MG/DL Random Glucose 63 MG/DL 93 MG/DL Calcium Level 8.2 MG/DL 7.9 MG/DL Sodium Level 139 MEQ/L 140 MEQ/L Potassium Level 4.9 MEQ/L 4.7 MEQ/L Chloride Level 104 MEQ/L 104 MEQ/L Carbon Dioxide Level 27.0 MEQ/L 23.0 MEQ/L Anion Gap 8 MEQ/L 13 MEQ/L Estimat Glomerular Filtration Rate 31 ML/MIN 14 ML/MIN Phosphorus Level 8.4 MG/DL Magnesium Level 2.5 MG/DL Lactate Dehydrogenase 421 U/L Microbiology Date/Time Source Procedure Growth Status 08/18/17 10:23 Blood Peripheral Aerobic Blood Culture - Preliminary NO GROWTH IN 2 DAYS Resulted 08/18/17 10:23 Blood Peripheral Anaerobic Blood Culture - Preliminary NO GROWTH IN 2 DAYS Resulted 08/18/17 10:15 Blood Peripheral Aerobic Blood Culture - Preliminary NO GROWTH IN 2 DAYS Resulted 08/18/17 10:15 Blood Peripheral Anaerobic Blood Culture - Preliminary NO GROWTH IN 2 DAYS Resulted 08/19/17 17:50 Bronchial Washings Left Lower Lobe Fungal Smear Pending Received 08/19/17 17:50 Bronchial Washings Left Lower Lobe Fungal Culture Pending Received 08/19/17 17:50 Bronchial Washings Left Lower Lobe Acid Fast Stain Pending Received 08/19/17 17:50 Bronchial Washings Left Lower Lobe Mycobacterial Culture Pending Received 08/19/17 17:50 Bronchial Washings Left Lower Lobe Gram Stain - Final Resulted 08/19/17 17:50 Bronchial Washings Left Lower Lobe Bronchial Culture Pending Resulted 08/18/17 08:10 Urine Catheterized Urine Urine Culture - Preliminary NO GROWTH IN 24 HOURS. Resulted Imaging Last Impressions Renal Ultrasound 08/19/17 0000 Signed Impressions: Service Date/Time: Saturday, August 19, 2017 13:50 - CONCLUSION: 1. Mildly increased renal cortical echogenicity consistent with medical renal disease. 2. Questionable minimally hyperechoic solid mass in the mid left kidney measuring 1.2 x 1.4 1.0 cm. Further evaluation may be performed with CT or MRI renal mass protocol on an outpatient basis. Jovi Loaiza MD Chest X-Ray 08/19/17 0000 Signed Impressions: Service Date/Time: Saturday, August 19, 2017 18:30 - CONCLUSION: 1. Findings of acute pulmonary edema. This is new when compared with the prior exam. Ranjit Espinal MD Upper Extremity Ultrasound 08/16/17 0000 Signed Impressions: Service Date/Time: Wednesday, August 16, 2017 13:39 - CONCLUSION: Extensive right upper extremity DVT Cleve Barnett MD Chest CT 08/10/17 0000 Signed Impressions: Service Date/Time: Thursday, August 10, 2017 17:36 - CONCLUSION: 1. Upper lobe predominant central emphysema with upper lobe predominant diffuse interstitial and groundglass opacities. Differential considerations include developing ARDS, atypical infection, pulmonary edema, sarcoidosis, and drug induced lung disease amongst other etiologies. 2. Trace right pleural effusion. Jovi Loaiza MD Elbow X-Ray 08/07/17 0000 Signed Impressions: Service Date/Time: Monday, August 07, 2017 13:12 - CONCLUSION: Joint effusion, no fracture Naveed Sage MD FACR Elbow MRI 08/07/17 0000 Signed Impressions: Service Date/Time: Monday, August 07, 2017 14:11 - CONCLUSION: Presumed inflammatory process mainly involving the brachialis. The joint is suspected to be infected as well. There is no osteomyelitis as yet. Neurovascular bundle is displaced medially there are brachial bifurcation findings have been discussed with Latosha FRANCOIS on today's date. Naveed Sage MD FACR Physical Exam CONSTITUTIONAL/GENERAL: This is an adequately nourished patient, + increased resp effort TUBES/LINES/DRAINS: SKIN: No jaundice, rashes, or lesions. CARDIOVASCULAR: Regular rate and rhythm without murmurs, gallops, or rubs. RESPIRATORY/CHEST: Symmetric, tachypneic decreased BS b/l GASTROINTESTINAL: Abdomen soft, non-tender, mildly distended. MUSCULOSKELETAL: Extremities without clubbing, cyanosis, Prominent RUE + non pitting edema. ALmost 2 x bigger LUE with very clean healing incision w/o erythema or edema + increasing edema, no erythema : sewell iplace with somewhat cloudy urine NEUROLOGICAL: sedated, PSYCHIATRIC: unable to assess Assessment & Plan Remarks Assessment and Plan Septic arthitis L elbow with deep abscess L brachialis muscle, MRSA sp I+D - healed, no e/o ongoing infx Acute VDRF - PNA vs non ifectious pneumonitis -not favoring PNA, more likely chronic intersitial lung disaes with advanced chronic resp failure interstitial and groundglass opacities ? atypical PNA Severe leukocytosis RA, on Humira RUE DVT Low grade fever ? from DVT Worsening AFR vancomycin stopped - no eosinophils ? UTI - UA abn, clx P Pt is criically ill Hemoptysis, sp BAL Rec's: dc cefepime, - cont levaquine - fu BAL clx avoid nephotoxic meds cont clindamycin to completed the planned 4 weeks dw family at b/s Dw Marilyn Prince RN, MD Aug 20, 2017 12:23
[2017-08-20] MEDS: CALCIUM ACETATE 667 MG CAP PO SCH ×2 (12:45→18:27)
[2017-08-20 12:57] LABS: RHEUMATOID FACTOR TRIGGER LESS THAN 10.0 IU/ML (0.0-14.9)
--- NOTE | 2017-08-20 13:02 | HHI.PR ---
Subjective Remarks Intubated and on Vent support , FIO2 at 40 %.On A/C rate 16 Remains .Sedated. but wakes up to commands. Had bronch done. bloody secretions. Objective Vital Signs Date Time Temp Pulse Resp B/P (MAP) Pulse Ox O2 Delivery O2 Flow Rate FiO2 08/20/17 12:04 95 40 08/20/17 12:00 90 08/20/17 12:00 97.7 90 14 135/63 (87) 99 08/20/17 12:00 60 08/20/17 10:00 100 08/20/17 08:27 95 50 08/20/17 08:00 92 08/20/17 08:00 60 08/20/17 08:00 98.2 92 14 108/51 (70) 97 08/20/17 07:00 98 Mechanical Ventilator 50 08/20/17 06:00 94 08/20/17 04:37 98 40 08/20/17 04:15 98 50 08/20/17 04:00 91 08/20/17 04:00 98.1 93 14 116/56 (76) 97 08/20/17 04:00 60 08/20/17 02:00 92 08/20/17 01:05 96 50 08/20/17 00:00 95 08/20/17 00:00 98.8 95 14 112/53 (72) 96 08/20/17 00:00 60 08/19/17 22:00 96 08/19/17 20:00 95 08/19/17 20:00 100 Mechanical Ventilator 50 08/19/17 20:00 98.6 94 14 111/55 (73) 99 08/19/17 20:00 60 08/19/17 19:30 97 40 08/19/17 18:04 98 60 08/19/17 18:00 70 08/19/17 17:15 100 100 08/19/17 16:00 100 08/19/17 16:00 98.6 100 15 131/60 (83) 88 08/19/17 16:00 45 08/19/17 15:52 92 45 08/19/17 14:00 99 I/O 08/19/17 08/19/17 08/19/17 08/20/17 08/20/17 08/20/17 07:00 15:00 23:00 07:00 15:00 23:00 Intake Total 1090 ml 854 ml 1000 ml 125 ml 1350 ml Output Total 400 ml 200 ml 400 ml Balance 690 ml 854 ml 800 ml -275 ml 1350 ml IV Total 920 ml 854 ml 700 ml 1350 ml Tube Feeding 110 ml 200 ml 65 ml Other 60 ml 100 ml 60 ml Output Urine Total 400 ml 200 ml 400 ml # Bowel Movements 0 2 2 Result Diagram: 08/20/17 1025 08/20/17 0548 Objective Remarks GENERAL: This is a averagely built middle-aged white female who is intubated HEENT: Head normocephalic. Pupils reactive and equal. Nasal mucosa clear.No thyroid enlargement or lymphadenopathy. CHEST: Decreased excursions. Expiratory wheezes scattered throughout both lung cabrera. HEART: The heart sounds are irregular, S1-S2. No definite murmur. No S3. ABDOMEN: The abdomen is protuberant and soft without masses or organomegaly or tenderness. EXTREMITIES: Mild joint deformities. There is mild peripheral edema. Peripheral pulses are felt. Reflexes are 1+ . SKIN: No lesions observed. Assessment and Plan Assessment and Plan IMPRESSION 1. COPD with emphysema and chronic bronchitis. 2. Cellulitis and left elbow joint infection. 3. Nicotine dependency. 4. History of rheumatoid arthritis and interstitial lung disease. 5. Fibromyalgia. 6. ARDS Plan : 1. Cont Nebs qid , duoneb. 2. Vent support and try CPAP 3. Cont Antibiotics. 4. BMP CBC in am. 5. Cont Heparin S/Q 6. NG with feeds at 50 CC, jevity 7. Solumedrol 40 mg IV q12h 8. Continue diuretics Perla Gonzalez MD Aug 20, 2017 13:02
[2017-08-20] MEDS ORDERED: BUMETANIDE INJ 1 MG/4 ML VIAL IV PUSH ONE (13:30)
[2017-08-20] MEDS ORDERED: DIATRIZOATE MEGLUM/DIATRIZOATE SOD 9 ML CUP PO ONE (14:00)
[2017-08-20 14:11] LABS: C. DIFF EPI 027 PRESUMPTIVE NEGATIVE (NEGATIVE)
--- NOTE | 2017-08-20 18:01 | RADRPT ---
EXAM DATE/TIME: 08/20/2017 17:12 [place] COMPARISON: US KIDNEY/RENAL/BLADDER, August 19, 2017, 13:50. INDICATIONS : Evaluate for retroperitoneal hematoma and possible renal mass. ORAL CONTRAST: No oral contrast ingested. RADIATION DOSE: 19.34 CTDIvol (mGy) MEDICAL HISTORY : Chronic obstructive pulmonary disease. Diverticulitis. SURGICAL HISTORY : Appendectomy. Cholecystectomy. ENCOUNTER: Initial ACUITY: 1 day PAIN SCALE: Non-responsive LOCATION: abdomen TECHNIQUE: Volumetric scanning of the abdomen and pelvis was performed. Using automated exposure control and ad justment of the mA and/or kV according to patient size, radiation dose was kept as low as reasonably achievable to obtain optimal diagnostic quality images. DICOM format image data is available electro nically for review and comparison. FINDINGS: LOWER LUNGS: Extensive bilateral consolidating infiltrate is identified in the lung bases. LIVER: Homogeneous density without lesion. There is no dilation of the biliary tree. Post cholecystectomy c lips are noted. SPLEEN: Normal size without lesion. PANCREAS: Within normal limits. KIDNEYS: No discrete evidence of renal mass however there is decreased sensitivity without the use of contrast . Minimal left-sided perinephric fluid collection is identified. There is no evidence of hydronephros is. ADRENAL GLANDS: Within normal limits. VASCULAR: There is no aortic aneurysm. BOWEL/MESENTERY: The stomach, small bowel, and colon demonstrate no acute abnormality. There is no free intraperitone al air or fluid. ABDOMINAL WALL: Within normal limits. RETROPERITONEUM: There is no lymphadenopathy or evidence of retroperitoneal hematoma.. BLADDER: No wall thickening or mass. REPRODUCTIVE: Within normal limits. INGUINAL: There is no lymphadenopathy or hernia. MUSCULOSKELETAL: Within normal limits for patient age. CONCLUSION: 1. No evidence of discrete renal mass however there is decreased sensitivity without the use of contr ast. 2. Minimal left perinephric stranding or fluid. 3. No evidence of hydronephrosis, nephrolithiasis or retroperitoneal hematoma. 4. Status post cholecystectomy. 5. Extensive lung infiltration. Mitesh Rojas MD on August 20, 2017 at 17:55 Board Certified Radiologist. This report was verified electronically.
[2017-08-20] MEDS: BUMETANIDE INJ 1 MG/4 ML VIAL IV PUSH SCH (18:26)
[2017-08-21] VITALS (18 sets, daily range): BP systolic 124–166; BP diastolic 60–75; PULSE 94–114; RESP 14–21; TEMP 98.2–99; O2SAT 92–98
[2017-08-21] MEDS ORDERED: CEFEPIME INJ 2,000 MG in SODIUM CHLORIDE 0.9% INJ 100 ML IV SCH (02:00)
[2017-08-21] MEDS: RESP: ALBUTEROL 2.5 MG/IPRATROPIUM 0.5 MG NEB (SCH) NEB ×5 (03:23→21:05)
[2017-08-21] MEDS: CLINDAMYCIN 600 MG/NS 100 ML IV SCH ×6 (05:17→20:07)
[2017-08-21] MEDS: METOCLOPRAMIDE HCL 10 MG/2 ML VIAL IV PUSH SCH ×3 (05:17→22:00)
[2017-08-21] MEDS: ARTIFICIAL TEARS OPTH SOLN 15 ML BTL EACH EYE SCH ×2 (05:18→14:00)
[2017-08-21] MEDS: INSULIN NovoLIN REGULAR SUPPLEMENTAL SCALE SQ SCH ×4 (06:00→18:00)
[2017-08-21 06:04] LABS: AUTOMATED NEUTROPHIL # 14.1 TH/MM3 (1.8-7.7); BASOPHIL % 0.2 % (0.0-2.0); EOSINOPHIL # 0.1 TH/MM3 (0-0.4); LYMPH % 1.5 % (9.0-44.0); LYMPHOCYTE # 0.2 TH/MM3 (1.0-4.8); MEAN CELL VOLUME 100.9 FL (80.0-100.0); MEAN CORPUSCULAR HEMOGLOBIN 33.2 PG (27.0-34.0); MEAN CORPUSCULAR HGB CONC 32.9 % (32.0-36.0); MONO % 7.5 % (0.0-8.0); NEUT % 89.8 % (16.0-70.0); PLATELET COUNT 271 TH/MM3 (150-450); RED BLOOD COUNT 2.07 MIL/MM3 (4.00-5.30); RED CELL DISTRIBUTION WIDTH 14.7 % (11.6-17.2); WHITE BLOOD COUNT 15.7 TH/MM3 (4.0-11.0)
[2017-08-21 06:14] LABS: HEMO FLAGS AUTO DIFF
[2017-08-21 06:16] LABS: HEMATOCRIT 20.9 % (35.0-46.0)
[2017-08-21 06:45] LABS: ALKALINE PHOSPHATASE 55 U/L (45-117); ALT (GPT) 88 U/L (10-53); ANION GAP 11 MEQ/L (5-15); AST (GOT) 52 U/L (15-37); BICARBONATE 21.6 MEQ/L (21.0-32.0); BLOOD UREA NITROGEN 97 MG/DL (7-18); CHLORIDE 105 MEQ/L (98-107); GLOMERULAR FILTRATION RATE 10 ML/MIN (>89); MAGNESIUM 2.4 MG/DL (1.5-2.5); POTASSIUM 4.6 MEQ/L (3.5-5.1); SODIUM (NA) 138 MEQ/L (136-145); TOTAL BILIRUBIN ADULT 0.6 MG/DL (0.2-1.0)
[2017-08-21 07:24] LABS: BANDS 17 % (0-6); BASOPHILS 1 % (0-2); EOSINOPHILS 3 % (0-4); METAMYELOCYTES 3 % (0-1); MYELOCYTES 4 % (0-0); NEUTROPHIL # MANUAL DIFF 14.1 TH/MM3 (1.8-7.7); PLATELET ESTIMATE SMEAR NORMAL (NORMAL); PLATELET MORPHOLOGY NORMAL (NORMAL); POLYS (SEG NEUTROPHILS) 66 % (16-70); SCAN/DIFF FINAL DIFF MANUAL; WBC DIFF SAMPLE 100
[2017-08-21] MEDS: RESP: BUDESONIDE 0.5 MG/2 ML NEB NEB SCH ×2 (07:53→21:05)
[2017-08-21] MEDS: CHLORHEXIDINE 0.12% (ORAL KIT) 15 ML CUP MT SCH ×2 (08:00→20:09)
[2017-08-21] MEDS: DOCUSATE SODIUM 100 MG/10 ML UDC PO SCH ×2 (08:17→20:08)
[2017-08-21] MEDS: SENNOSIDES SYRUP 8.8 MG/5 ML CUP NG SCH ×2 (08:17→20:08)
[2017-08-21] MEDS: LEVOFLOXACIN 750 MG PREMIX INJ 150 ML IV SCH (08:17)
[2017-08-21] MEDS: POLYETHYLENE GLYCOL 17 GM PKG NG SCH ×2 (08:17→20:08)
[2017-08-21] MEDS: buPROPion HCL 100 MG SUSTAINED RELEASE TAB PO SCH ×2 (08:18→20:08)
[2017-08-21] MEDS: GABAPENTIN 300 MG CAP PO SCH ×2 (08:18→20:06)
[2017-08-21] MEDS: BUMETANIDE INJ 1 MG/4 ML VIAL IV PUSH SCH (08:18)
[2017-08-21] MEDS: methylPREDNISolone SOD SUCC 40 MG/1 ML VIAL IV PUSH SCH ×2 (08:18→20:06)
[2017-08-21] MEDS: CHOLECALCIFEROL (VIT D3) 1000 UNIT TAB PO SCH (08:18)
[2017-08-21] MEDS: FOLIC ACID 1 MG TAB PO SCH (08:18)
[2017-08-21] MEDS: CALCIUM ACETATE 667 MG CAP PO SCH ×3 (08:18→18:00)
[2017-08-21] MEDS: LEVOTHYROXINE SODIUM 50 MCG TAB PO SCH (08:18)
[2017-08-21] MEDS: DOXEPIN HCL 50 MG CAP PO SCH ×2 (08:18→20:06)
[2017-08-21] MEDS: PANTOPRAZOLE SODIUM 40 MG VIAL IV PUSH SCH (08:18)
--- NOTE | 2017-08-21 08:46 | HHI.CCPN ---
Subjective Remarks/Hospital Course 57-year-old white female with a history of a longstanding COPD and rheumatoid arthritis and fibromyalgia, was admitted with pain and swelling of the left elbow. The patient apparently was out of town and tripped and fell on her elbow injuring the elbow and requiring sutures for a laceration. Subsequently she developed swelling and redness and cellulitis and the patient was then brought to the ER where she was noted to have cellulitis with an abscessed area and now was seen by orthopedics and placed on antibiotic coverage for soft tissue infection with a joint abscess. She also was hypoxic upon admission and has been placed on oxygen via nasal cannula at 3 liters and she does have a cough and her chest x-ray that was done showed acute pulmonary infiltrates. Today she was in severe respiratory distress on the [facility] floor and the rapid response was called. She was transferred immediately to ICU and was intubated shortly after arrival due to severe respiratory distress and hypoxemia. 08/15: Gas exchange impaired, diffuse infiltrates persist. 08/16: Gas exchange remains markedly impaired. We are in for a long haul on the ventilator. 08/17: Gas exchange remains markedly impaired, PEEP 10 elevated FiO2. Diffuse interstitial infiltrates persist (On home oxygen). Extensive right arm and shoulder region DVT. 08/18: Converted to APRV for persistent hypoxemia. Leukocytosis persists. 08/19: A-aO2 gradient gradually improving. Family has reasonable concerns about the length of time she will require mechanical ventilation. They are at odds with each other about the terms defined in her advanced directive. I have asked them to bring the document to us. At this point the patient is gradually improving and will undergo spontaneous breathing trials within a day or two. 08/19: Tmax 100.2. Switched over to PRVC ventilation today. Will check ABG this afternoon. Not tolerating tube feeds currently at 20 cc an hour. 2 BMs yesterday documented. Arousable and follows commands on sedation vacation. 08/20: Yesterday, brought for hemoptysis. Suction trauma noted in the left main bronchus. Status post cold saline/sodium bicarbonate. Hemoglobin dropped from 9.8-7.1. No obvious source of bleeding. Denies abdominal pain. CT abdomen/pelvis pending. Rule out retroperitoneal bleed. Tolerating tube feeding. Hemolysis workup in process. Also noted, creatinine currently elevated at 3.3. Urine eosinophils were yesterday not performed. RN notified. Will do stat. Renal ultrasound revealed medical renal disease, left renal mass. Subjective 08/21: Afebrile. Creatinine is increased to 4.5. Urine output has increased however. Currently on PSV trial per pulmonology. CT abdomen/post revealed no retroperitoneal hematoma. Being transfused 2 units PRBCs today. Objective Vital Signs Date Time Temp Pulse Resp B/P (MAP) Pulse Ox O2 Delivery O2 Flow Rate FiO2 08/21/17 08:28 40 08/21/17 07:54 94 08/21/17 06:00 94 08/21/17 04:00 98.2 14 129/60 (83) 08/20/17 19:00 Mechanical Ventilator Intake and Output 08/21/17 08/21/17 08/21/17 07:59 15:59 23:59 Intake Total 289 ml Output Total 900 ml Balance -611 ml Result Diagram: 08/21/17 0530 08/21/17 0530 Other Results Microbiology Date/Time Source Procedure Growth Status 08/18/17 10:23 Blood Peripheral Aerobic Blood Culture - Preliminary NO GROWTH IN 2 DAYS Resulted 08/18/17 10:23 Blood Peripheral Anaerobic Blood Culture - Preliminary NO GROWTH IN 2 DAYS Resulted 08/19/17 17:50 Bronchial Washings Left Lower Lobe Fungal Smear - Final NO FUNGAL ELEMENTS SEEN. Resulted 08/19/17 17:50 Bronchial Washings Left Lower Lobe Fungal Culture Pending Resulted 08/18/17 08:10 Urine Catheterized Urine Urine Culture - Final NO GROWTH IN 48 HOURS. Complete 08/07/17 19:48 Wound Elbow Fungal Smear - Final NO FUNGAL ELEMENTS SEEN. Resulted 08/07/17 19:48 Wound Elbow Fungal Culture - Preliminary NO GROWTH IN 1 WEEK Resulted Imaging Last Impressions Abdomen/Pelvis CT 08/20/17 0000 Signed Impressions: Service Date/Time: Sunday, August 20, 2017 17:12 - CONCLUSION: 1. No evidence of discrete renal mass however there is decreased sensitivity without the use of contrast. 2. Minimal left perinephric stranding or fluid. 3. No evidence of hydronephrosis, nephrolithiasis or retroperitoneal hematoma. 4. Status post cholecystectomy. 5. Extensive lung infiltration. Mitesh Rojas MD Renal Ultrasound 08/19/17 0000 Signed Impressions: Service Date/Time: Saturday, August 19, 2017 13:50 - CONCLUSION: 1. Mildly increased renal cortical echogenicity consistent with medical renal disease. 2. Questionable minimally hyperechoic solid mass in the mid left kidney measuring 1.2 x 1.4 1.0 cm. Further evaluation may be performed with CT or MRI renal mass protocol on an outpatient basis. Jovi Loaiza MD Chest X-Ray 08/19/17 0000 Signed Impressions: Service Date/Time: Saturday, August 19, 2017 18:30 - CONCLUSION: 1. Findings of acute pulmonary edema. This is new when compared with the prior exam. Ranjit Espinal MD Upper Extremity Ultrasound 08/16/17 0000 Signed Impressions: Service Date/Time: Wednesday, August 16, 2017 13:39 - CONCLUSION: Extensive right upper extremity DVT Cleve Barnett MD Chest CT 08/10/17 0000 Signed Impressions: Service Date/Time: Thursday, August 10, 2017 17:36 - CONCLUSION: 1. Upper lobe predominant central emphysema with upper lobe predominant diffuse interstitial and groundglass opacities. Differential considerations include developing ARDS, atypical infection, pulmonary edema, sarcoidosis, and drug induced lung disease amongst other etiologies. 2. Trace right pleural effusion. Jovi Loaiza MD Elbow X-Ray 08/07/17 0000 Signed Impressions: Service Date/Time: Monday, August 07, 2017 13:12 - CONCLUSION: Joint effusion, no fracture Naveed Sage MD FACR Elbow MRI 08/07/17 0000 Signed Impressions: Service Date/Time: Monday, August 07, 2017 14:11 - CONCLUSION: Presumed inflammatory process mainly involving the brachialis. The joint is suspected to be infected as well. There is no osteomyelitis as yet. Neurovascular bundle is displaced medially there are brachial bifurcation findings have been discussed with Latosha FRANCOIS on today's date. Naveed Sage MD FACR Objective Remarks GENERAL: 57-year-old female, critically ill currently orotracheally intubated SKIN: Warm and dry. No rash HEAD: Normocephalic. EYES: No scleral icterus. No injection or drainage. NECK: Supple, trachea midline. Orally intubated. CARDIOVASCULAR: RRR. S1, S2. No S4. Without murmur RESPIRATORY: Coarse crackles appreciated throughout lung cabrera. No wheezing. GASTROINTESTINAL: Abdomen soft, non-tender, nondistended. BS active. MUSCULOSKELETAL: Status post excision and drainage of left elbow. Incision clean, dry. Right upper extremity edema 2+ NEURO EXAM: Moves 4 limbs. WENDY. Opens eyes. Follows simple commands Procedures Irrigation and debridement of left elbow A/P Assessment and Plan Neuro/Psych: Fibromyalgia Depression/anxiety Patient is currently on propofol at 30 mcg/kg per minute for sedation while intubated Added fentanyl drip as needed Goal of RA SS -2 Daily sedation vacation Continue doxepin 50 mill grams twice a day, fluoxetine 120 mg daily and bupropion 200 mg by mouth twice a day for depression/anxiety Continue gabapentin 300 mg morning and decreased from 600 mg to 300mg at night CV: Patient is currently hemodynamic stable and not requiring vasopressors and/or antihypertensives Resp: Acute hypoxemic respiratory failure secondary due to ILD/COPD Hemoptysis PC/AC rate 14. Inspiratory pressure 16. PEEP 8. Inspiratory time 2.1. FiO2 40 Currently on PSV trial 10/18 @ 40% Ventilator bundle Albuterol/ipratropium aerosols every 4 hours with albuterol aerosols every 2 hours when necessary dyspnea budesonide aerosols 0.5 mg/2 mL one inhalation twice a day Methylprednisolone 40 mg IV 2 times a day will be continued Dr. Gonzalez - pulmonology is following Chest x-ray yesterday revealed pulmonary fibrosis as interstitial lung disease without focal pneumothorax. Repeat after bronchoscopy revealed pulmonary edema? Status post bronchoscopy yesterday for hemoptysis. There was some suction trauma with cessation of bleeding with cold saline/sodium bicarbonate GI: Goals Nepro goal 50 cc an hour. Currently 20 cc an hour Pantoprazole GI prophylaxis Docusate sodium 200 mg twice a day/senna liquid 8.6 mg twice a day for bowel regimen with propylene glycol twice a day Intolerance of tube feeding. On metoclopramide 5 mg IV every 8 hours : Dee catheter has been placed for accurate I's and O's in a critically ill patient Endo: Hypothyroidism Continue levothyroxine 50 mcg daily Sliding-scale insulin with Accu-Cheks to maintain euglycemia/medium regimen of Novulin R while on steroids Rheum: RA Currently holding methotrexate 2.5 mg weekly. Likely resume when clinically indicated Continue folic acid 1 mg by mouth daily Rheumatoid factor negative. Complements low Renal: Acute kidney injury Left renal mass -negative see. Urine output 1300 cc past 24 hours. Creatinine currently 1.6 - 3.3 - 4.5 Vancomycin discontinued per infectious disease Check urine eosinophil/creatinine and sodium Renal ultrasound revealed medical renal disease with cortical thickening. Left renal mass 1.2 x 1.4 x 1 70. Recommend a follow-up MRI/CT outpatient Recheck BMP in a.m. Check complements - low C3 and C4 and ANCA - pending. Nephrology consultation. Currently on Bumex 2 mg IV twice a day Heme: Leukocytosis Macrocytic anemia Right upper extremity DVT Monitor CBC daily. Follow trends Ultrasound reveals nonocclusive thrombus right subclavian/axillary and occlusive thrombus radial/cephalic Yesterday held enoxaparin 80 mg subcutaneous twice a day in light of hemoptysis. Resume when clinically indicated Transfuse 2 units PRBCs. Signs of hemolysis on haptoglobin/peripheral smear 08/20 CT abdomen/pelvis ruled out retroperitoneal hematoma ID: MRSA left elbow Currently on levofloxacin, and clindamycin per infectious disease Vancomycin discontinued 08/19 and cefepime discontinued 08/20 FEN: Replace electrolytes as clinically indicated MSK: Status post ORIF left septic elbow 07/28 - MRSA Long-term antibiotics per infectious disease Access - Right IJ CVL Prophylaxis - GI - pantoprazole - DVT - SCD/enoxaparin 80 mg subcutaneous twice a day held in light of hemoptysis and anemia Critical Care: The total critical care time was 35 minutes. Time to perform other separately billable procedures was not included in the critical care time. Justin Srivastava MD Aug 21, 2017 08:46
[2017-08-21] MEDS: FLUoxetine HCL 20 MG CAP PO SCH (09:00)
[2017-08-21] MEDS: guaiFENesin E.R. 600 MG TAB PO SCH ×2 (09:00→20:08)
[2017-08-21] MEDS: SODIUM CHLORIDE 0.9% FLUSH 10 ML FLUSH IV FLUSH SCH ×3 (09:00→20:08)
--- NOTE | 2017-08-21 12:02 | HHI.NPPN ---
Subjective Renal Failure: Acute Interval History She has responded to Bumex but her creatinine is worse. Family at bedside. The pt is on CPAP trial. (Yanely Lipscomb) Review of Systems General General Remarks unable to evaluate (Yanely Lipscomb) Objective Data Data Vital Signs Date Time Temp Pulse Resp B/P (MAP) Pulse Ox O2 Delivery O2 Flow Rate FiO2 08/21/17 11:28 92 40 08/21/17 08:28 40 08/21/17 07:54 94 40 08/21/17 07:00 94 Mechanical Ventilator 40 08/21/17 06:00 94 08/21/17 04:12 94 40 08/21/17 04:00 98.2 109 14 129/60 (83) 94 08/21/17 04:00 109 08/21/17 04:00 40 08/21/17 02:00 102 08/21/17 01:05 95 40 08/21/17 00:00 108 08/21/17 00:00 98.6 108 15 124/63 (83) 95 08/21/17 00:00 40 08/20/17 22:15 100 40 08/20/17 22:00 108 08/20/17 20:36 96 40 08/20/17 20:00 98.5 100 14 125/94 (104) 97 08/20/17 20:00 40 08/20/17 20:00 100 08/20/17 19:00 100 Mechanical Ventilator 40 08/20/17 18:00 102 08/20/17 17:15 100 60 08/20/17 16:36 93 40 08/20/17 16:00 97.5 94 14 128/60 (82) 95 08/20/17 16:00 94 08/20/17 16:00 40 08/20/17 14:00 92 08/20/17 12:04 95 40 08/20/17 12:00 90 08/20/17 12:00 97.7 90 14 135/63 (87) 99 08/20/17 12:00 60 (Yanely Lipscomb) -: 08/21/17 0530 08/21/17 0530 Imaging Last Impressions Abdomen/Pelvis CT 08/20/17 0000 Signed Impressions: Service Date/Time: Sunday, August 20, 2017 17:12 - CONCLUSION: 1. No evidence of discrete renal mass however there is decreased sensitivity without the use of contrast. 2. Minimal left perinephric stranding or fluid. 3. No evidence of hydronephrosis, nephrolithiasis or retroperitoneal hematoma. 4. Status post cholecystectomy. 5. Extensive lung infiltration. Mitesh Rojas MD Renal Ultrasound 08/19/17 0000 Signed Impressions: Service Date/Time: Saturday, August 19, 2017 13:50 - CONCLUSION: 1. Mildly increased renal cortical echogenicity consistent with medical renal disease. 2. Questionable minimally hyperechoic solid mass in the mid left kidney measuring 1.2 x 1.4 1.0 cm. Further evaluation may be performed with CT or MRI renal mass protocol on an outpatient basis. Jovi Loaiza MD Chest X-Ray 08/19/17 0000 Signed Impressions: Service Date/Time: Saturday, August 19, 2017 18:30 - CONCLUSION: 1. Findings of acute pulmonary edema. This is new when compared with the prior exam. Ranjit Espinal MD Upper Extremity Ultrasound 08/16/17 0000 Signed Impressions: Service Date/Time: Wednesday, August 16, 2017 13:39 - CONCLUSION: Extensive right upper extremity DVT Cleve Barnett MD Chest CT 08/10/17 0000 Signed Impressions: Service Date/Time: Thursday, August 10, 2017 17:36 - CONCLUSION: 1. Upper lobe predominant central emphysema with upper lobe predominant diffuse interstitial and groundglass opacities. Differential considerations include developing ARDS, atypical infection, pulmonary edema, sarcoidosis, and drug induced lung disease amongst other etiologies. 2. Trace right pleural effusion. Jovi Loaiza MD Elbow X-Ray 08/07/17 0000 Signed Impressions: Service Date/Time: Monday, August 07, 2017 13:12 - CONCLUSION: Joint effusion, no fracture Naveed Sage MD FACR Elbow MRI 08/07/17 0000 Signed Impressions: Service Date/Time: Monday, August 07, 2017 14:11 - CONCLUSION: Presumed inflammatory process mainly involving the brachialis. The joint is suspected to be infected as well. There is no osteomyelitis as yet. Neurovascular bundle is displaced medially there are brachial bifurcation findings have been discussed with Latosha FRANCOIS on today's date. Naveed Sage MD FACR Tubes & Lines: Dee (Yanely Lipscomb) Physical Exam General Appearance: Well Developed, Comfortable Appearance Remarks intubated, eyes open (Yanely Lipscomb) Throat Throat Exam: Oral Mucosa [place] & Moist (Yanely Lipscomb VARNISH BLENDER) Pulmonary Resp Exam: Clear Bilaterally, Breath Sounds Equal, Decreased Bases (Yanely Lipscomb VARNISH BLENDER) Cardiology CV Exam: Regular, Normal Sinus Rhythm (Yanely Lipscomb VARNISH BLENDER) Gastrointestinal/Abdomen GI Exam: Soft, Non-Tender, Bowel Sounds Present (Yanely Lipscomb) Musculoskeletal MS Exam: Joints Intact, Unable to Ambulate (Yanely Lipscomb) Integumentary Skin Exam: Warm, Dry (Yanely Lipscomb) Extremeties Extremities Exam: Pedal Pulses Palpable, Moderate Edema, Pitting Edema (Yanely Lipscomb) Neurologic Neuro Exam: Awake, Moving All Extremities, Sedated (Yanely Lipscomb) VTE Prophylaxis Device: SCDs (Yanely Lipscomb) Assessment/Plan Problem List: (1) Acute renal failure ICD Codes: N17.9 - Acute kidney failure, unspecified Plan: She has normal renal function at baseline Differentials for renal failure may be sepsis syndrome with hypotension; vancomycin induced nephrotoxicity is also a consideration She is fluid overloaded, responding to Bumex Stop intermittent doses and start Bumex gtt at 1mg/hr If no improvement in next 24-48 hrs she may need dialysis, D/W daughter Avoid nephrotoxins, antibiotics reviewed Follow fluid status, currently non oliguric Increase calcium acetate for hyperphosphatemia Repeat labs in AM (2) Joint infection ICD Codes: M00.9 - Pyogenic arthritis, unspecified Status: Acute Plan: ID is following s/p I&D on 08/07 On cefepime, clindamycin, and levaquin currently (3) Anemia ICD Codes: D64.9 - Anemia, unspecified Plan: Off anticoagulation Ordered 2 units for transfusion today (Yanely Lipscomb) Plan patient was seen and examined. Agree with above assessment and plan. Start Bumex drip. May need dialysis. Minimize IVF. (Jaime Moya MD) Yanely Lipscomb [facility] Aug 21, 2017 12:01 Jaime Moya MD Aug 21, 2017 17:51
[2017-08-21] MEDS: BUMETANIDE INJ 100 ML IV SCH (13:49)
--- NOTE | 2017-08-21 18:39 | HHI.IDPN ---
Subjective Subjective Remarks Low grade fever Pt is creatinine again up today, but UOP is good remains on vent Antibiotics l;evaquine clindamycin Allergies: Coded Allergies: No Known Allergies (Unverified , 08/07/17) Objective . Vital Signs Date Time Temp Pulse Resp B/P (MAP) Pulse Ox O2 Delivery O2 Flow Rate FiO2 08/21/17 16:00 40 08/21/17 16:00 110 08/21/17 16:00 99.0 110 18 166/75 (105) 95 08/21/17 15:16 92 50 08/21/17 14:00 108 08/21/17 12:00 98.8 108 20 140/63 (88) 93 08/21/17 12:00 108 08/21/17 12:00 40 08/21/17 11:28 92 40 08/21/17 10:00 108 08/21/17 08:28 40 08/21/17 08:00 106 08/21/17 08:00 40 08/21/17 08:00 98.2 106 14 135/63 (87) 98 08/21/17 07:54 94 40 08/21/17 07:00 94 Mechanical Ventilator 40 08/21/17 06:00 94 08/21/17 04:12 94 40 08/21/17 04:00 98.2 109 14 129/60 (83) 94 08/21/17 04:00 109 08/21/17 04:00 40 08/21/17 02:00 102 08/21/17 01:05 95 40 08/21/17 00:00 108 08/21/17 00:00 98.6 108 15 124/63 (83) 95 08/21/17 00:00 40 08/20/17 22:15 100 40 08/20/17 22:00 108 08/20/17 20:36 96 40 08/20/17 20:00 98.5 100 14 125/94 (104) 97 08/20/17 20:00 40 08/20/17 20:00 100 08/20/17 19:00 100 Mechanical Ventilator 40 08/21/17 08/21/17 08/22/17 14:59 22:59 06:59 Intake Total 1154 ml 400 ml Balance 1154 ml 400 ml IV Total 254 ml Packed Cells 400 ml 400 ml Blood Product IV Normal Saline Flush 500 ml . Laboratory Tests Test 08/20/17 05:48 08/20/17 10:25 08/21/17 05:30 White Blood Count 17.2 TH/MM3 15.7 TH/MM3 Red Blood Count 2.15 MIL/MM3 2.07 MIL/MM3 Hemoglobin 7.1 GM/DL 7.0 GM/DL 6.9 GM/DL Hematocrit 21.9 % 20.9 % Mean Corpuscular Volume 101.9 FL 100.9 FL Mean Corpuscular Hemoglobin 33.1 PG 33.2 PG Mean Corpuscular Hemoglobin Concent 32.5 % 32.9 % Red Cell Distribution Width 15.1 % 14.7 % Platelet Count 232 TH/MM3 271 TH/MM3 Mean Platelet Volume 8.8 FL 8.7 FL Neutrophils (%) (Auto) 91.4 % 89.8 % Lymphocytes (%) (Auto) 2.3 % 1.5 % Monocytes (%) (Auto) 5.8 % 7.5 % Eosinophils (%) (Auto) 0.3 % 1.0 % Basophils (%) (Auto) 0.2 % 0.2 % Neutrophils # (Auto) 15.8 TH/MM3 14.1 TH/MM3 Lymphocytes # (Auto) 0.4 TH/MM3 0.2 TH/MM3 Monocytes # (Auto) 1.0 TH/MM3 1.2 TH/MM3 Eosinophils # (Auto) 0.1 TH/MM3 0.1 TH/MM3 Basophils # (Auto) 0.0 TH/MM3 0.0 TH/MM3 CBC Comment AUTO DIFF AUTO DIFF Differential Total Cells Counted 100 100 Neutrophils % (Manual) 83 % 66 % Band Neutrophils % 12 % 17 % Monocytes % 2 % 4 % Neutrophils # (Manual) 16.9 TH/MM3 14.1 TH/MM3 Metamyelocytes 2 % 3 % Myelocytes 1 % 4 % Differential Comment FINAL DIFF MANUAL FINAL DIFF MANUAL Platelet Estimate NORMAL NORMAL Platelet Morphology Comment NORMAL NORMAL Blood Smear Pathologist Review Haptoglobin 335 MG/DL Lymphocytes % 2 % Eosinophils % 3 % Basophils % 1 % Laboratory Tests Test 08/20/17 05:48 08/20/17 10:25 08/21/17 05:30 Blood Urea Nitrogen 75 MG/DL 97 MG/DL Creatinine 3.38 MG/DL 4.45 MG/DL Random Glucose 93 MG/DL 107 MG/DL Calcium Level 7.9 MG/DL 7.9 MG/DL Phosphorus Level 8.4 MG/DL 8.8 MG/DL Magnesium Level 2.5 MG/DL 2.4 MG/DL Sodium Level 140 MEQ/L 138 MEQ/L Potassium Level 4.7 MEQ/L 4.6 MEQ/L Chloride Level 104 MEQ/L 105 MEQ/L Carbon Dioxide Level 23.0 MEQ/L 21.6 MEQ/L Anion Gap 13 MEQ/L 11 MEQ/L Estimat Glomerular Filtration Rate 14 ML/MIN 10 ML/MIN Lactate Dehydrogenase 421 U/L Total Protein 5.5 GM/DL Albumin 2.0 GM/DL Alkaline Phosphatase 55 U/L Aspartate Amino Transf (AST/SGOT) 52 U/L Alanine Aminotransferase (ALT/SGPT) 88 U/L Total Bilirubin 0.6 MG/DL Microbiology Date/Time Source Procedure Growth Status 08/19/17 17:50 Bronchial Washings Left Lower Lobe Fungal Smear - Final NO FUNGAL ELEMENTS SEEN. Resulted 08/19/17 17:50 Bronchial Washings Left Lower Lobe Fungal Culture Pending Resulted 08/19/17 17:50 Bronchial Washings Left Lower Lobe Acid Fast Stain - Final NO ACID FAST BACILLI SEEN Resulted 08/19/17 17:50 Bronchial Washings Left Lower Lobe Mycobacterial Culture Pending Resulted 08/19/17 17:50 Bronchial Washings Left Lower Lobe Gram Stain - Final Resulted 08/19/17 17:50 Bronchial Washings Left Lower Lobe Bronchial Culture - Preliminary NO GROWTH IN 24 HOURS. Resulted Imaging Last Impressions Abdomen/Pelvis CT 08/20/17 0000 Signed Impressions: Service Date/Time: Sunday, August 20, 2017 17:12 - CONCLUSION: 1. No evidence of discrete renal mass however there is decreased sensitivity without the use of contrast. 2. Minimal left perinephric stranding or fluid. 3. No evidence of hydronephrosis, nephrolithiasis or retroperitoneal hematoma. 4. Status post cholecystectomy. 5. Extensive lung infiltration. Mitesh Rojas MD Renal Ultrasound 08/19/17 0000 Signed Impressions: Service Date/Time: Saturday, August 19, 2017 13:50 - CONCLUSION: 1. Mildly increased renal cortical echogenicity consistent with medical renal disease. 2. Questionable minimally hyperechoic solid mass in the mid left kidney measuring 1.2 x 1.4 1.0 cm. Further evaluation may be performed with CT or MRI renal mass protocol on an outpatient basis. Jovi Loaiza MD Chest X-Ray 08/19/17 0000 Signed Impressions: Service Date/Time: Saturday, August 19, 2017 18:30 - CONCLUSION: 1. Findings of acute pulmonary edema. This is new when compared with the prior exam. Ranjit Espinal MD Upper Extremity Ultrasound 08/16/17 0000 Signed Impressions: Service Date/Time: Wednesday, August 16, 2017 13:39 - CONCLUSION: Extensive right upper extremity DVT Cleve Barnett MD Chest CT 08/10/17 0000 Signed Impressions: Service Date/Time: Thursday, August 10, 2017 17:36 - CONCLUSION: 1. Upper lobe predominant central emphysema with upper lobe predominant diffuse interstitial and groundglass opacities. Differential considerations include developing ARDS, atypical infection, pulmonary edema, sarcoidosis, and drug induced lung disease amongst other etiologies. 2. Trace right pleural effusion. Jovi Loaiza MD Elbow X-Ray 08/07/17 0000 Signed Impressions: Service Date/Time: Monday, August 07, 2017 13:12 - CONCLUSION: Joint effusion, no fracture Naveed Sage MD FACR Elbow MRI 08/07/17 0000 Signed Impressions: Service Date/Time: Monday, August 07, 2017 14:11 - CONCLUSION: Presumed inflammatory process mainly involving the brachialis. The joint is suspected to be infected as well. There is no osteomyelitis as yet. Neurovascular bundle is displaced medially there are brachial bifurcation findings have been discussed with Latosha FRANCOIS on today's date. Naveed Sage MD FACR Physical Exam CONSTITUTIONAL/GENERAL: This is an adequately nourished patient, + increased resp effort TUBES/LINES/DRAINS: SKIN: No jaundice, rashes, or lesions. CARDIOVASCULAR: Regular rate and rhythm without murmurs, gallops, or rubs. RESPIRATORY/CHEST: Symmetric, tachypneic decreased BS b/l GASTROINTESTINAL: Abdomen soft, non-tender, mildly distended. MUSCULOSKELETAL: Extremities without clubbing, cyanosis, Prominent RUE with persistant prominent non pitting edema. ALmost 2 x bigger LUE with very clean healing incision w/o erythema or edema + increasing edema, no erythema : se[place] iplace with somewhat cloudy urine NEUROLOGICAL: sedated, PSYCHIATRIC: unable to assess Assessment & Plan Remarks Assessment and Plan Septic arthitis L elbow with deep abscess L brachialis muscle, MRSA sp I+D - healed, no e/o ongoing infx Acute VDRF - PNA vs non ifectious pneumonitis -not favoring PNA, more likely chronic intersitial lung disaes with advanced chronic resp failure interstitial and groundglass opacities ? atypical PNA Severe leukocytosis RA, on Humira RUE DVT Low grade fever ? from DVT Worsening AFR vancomycin stopped - no eosinophils ? UTI - UA abn, clx negative, but CT with stranding Pt is criically ill Hemoptysis, sp BAL, clx negative Worsening creatinine Rec's: - cont levaquine - fu BAl clx untill final avoid nephotoxic meds cont clindamycin to completed the planned 4 weeks dw dgtr at b/s Dw Marilyn Prince RN, MD Aug 21, 2017 18:39
[2017-08-21] MEDS: PROPOFOL 1000 MG/100 ML IV PRN (18:43)
--- NOTE | 2017-08-21 19:13 | HHI.PR ---
Subjective Remarks on the ventilator sedated Objective Vital Signs Date Time Temp Pulse Resp B/P (MAP) Pulse Ox O2 Delivery O2 Flow Rate FiO2 08/21/17 18:00 108 08/21/17 16:15 60 08/21/17 16:00 40 08/21/17 16:00 110 08/21/17 16:00 99.0 110 18 166/75 (105) 95 08/21/17 15:16 92 50 08/21/17 14:00 108 08/21/17 12:00 98.8 108 20 140/63 (88) 93 08/21/17 12:00 108 08/21/17 12:00 40 08/21/17 11:28 92 40 08/21/17 10:00 108 08/21/17 08:28 40 08/21/17 08:00 106 08/21/17 08:00 40 08/21/17 08:00 98.2 106 14 135/63 (87) 98 08/21/17 07:54 94 40 08/21/17 07:00 94 Mechanical Ventilator 40 08/21/17 06:00 94 08/21/17 04:12 94 40 08/21/17 04:00 98.2 109 14 129/60 (83) 94 08/21/17 04:00 109 08/21/17 04:00 40 08/21/17 02:00 102 08/21/17 01:05 95 40 08/21/17 00:00 108 08/21/17 00:00 98.6 108 15 124/63 (83) 95 08/21/17 00:00 40 08/20/17 22:15 100 40 08/20/17 22:00 108 08/20/17 20:36 96 40 08/20/17 20:00 98.5 100 14 125/94 (104) 97 08/20/17 20:00 40 08/20/17 20:00 100 I/O 08/20/17 08/20/17 08/20/17 08/21/17 08/21/17 08/21/17 06:59 14:59 22:59 06:59 14:59 22:59 Intake Total 125 ml 1350 ml 280 ml 289 ml 1154 ml 993 ml Output Total 400 ml 475 ml 900 ml 1350 ml Balance -275 ml 1350 ml -195 ml -611 ml 1154 ml -357 ml IV Total 1350 ml 100 ml 155 ml 254 ml Tube Feeding 65 ml 30 ml 134 ml 413 ml Packed Cells 400 ml 400 ml Blood Product IV Normal Saline Flush 500 ml Other 60 ml 150 ml 180 ml Output Urine Total 400 ml 475 ml 900 ml 1350 ml # Bowel Movements 2 3 2 4 Result Diagram: 08/21/1752908/21/17529 Objective Remarks GENERAL: SKIN: Warm and dry. HEAD: Atraumatic. Normocephalic. EYES: Pupils equal and round. No scleral icterus. No injection or drainage. ENT: No nasal bleeding or discharge. Mucous membranes pink and moist. NECK: Trachea midline. No JVD. CARDIOVASCULAR: Regular rate and rhythm. RESPIRATORY: No accessory muscle use. Clear to auscultation. Breath sounds equal bilaterally. GASTROINTESTINAL: Abdomen soft, non-tender, nondistended. Hepatic and splenic margins not palpable. MUSCULOSKELETAL: Extremities without clubbing, cyanosis, or edema. No obvious deformities. NEUROLOGICAL: Awake and alert. No obvious cranial nerve deficits. Motor grossly within normal limits. Five out of 5 muscle strength in the arms and legs. Normal speech. PSYCHIATRIC: Appropriate mood and affect; insight and judgment normal. Assessment and Plan Assessment and Plan respiratory failure sepsis vent. dependent plan vent. support antibiotics per ID [employer] Stacey Ibarra MD Aug 21, 2017 19:13
[2017-08-21 20:59] LABS: HEMATOCRIT 28.3 % (35.0-46.0)
[2017-08-21 21:04] LABS: REVIEW FLAG FINAL
[2017-08-22] VITALS (19 sets, daily range): BP systolic 109–151; BP diastolic 57–76; PULSE 96–122; RESP 14–20; TEMP 97.9–101; O2SAT 95–100
[2017-08-22] MEDS: RESP: ALBUTEROL 2.5 MG/IPRATROPIUM 0.5 MG NEB (SCH) NEB ×6 (00:57→19:32)
[2017-08-22] MEDS: PROPOFOL 1000 MG/100 ML IV PRN ×4 (01:24→22:28)
[2017-08-22] MEDS: ARTIFICIAL TEARS OPTH SOLN 15 ML BTL EACH EYE SCH ×4 (01:26→21:24)
[2017-08-22 05:47] LABS: MEAN CELL VOLUME 95.5 FL (80.0-100.0); MEAN CORPUSCULAR HEMOGLOBIN 32.4 PG (27.0-34.0); MEAN CORPUSCULAR HGB CONC 33.9 % (32.0-36.0); PLATELET COUNT 301 TH/MM3 (150-450); RED BLOOD COUNT 2.93 MIL/MM3 (4.00-5.30); RED CELL DISTRIBUTION WIDTH 17.3 % (11.6-17.2); REVIEW FLAG FINAL; WHITE BLOOD COUNT 15.8 TH/MM3 (4.0-11.0)
[2017-08-22] MEDS: ACETAMINOPHEN 325 MG TAB PO PRN ×2 (05:53→21:54)
[2017-08-22] MEDS: CLINDAMYCIN 600 MG/NS 100 ML IV SCH ×6 (05:54→21:22)
[2017-08-22] MEDS: METOCLOPRAMIDE HCL 10 MG/2 ML VIAL IV PUSH SCH ×3 (06:00→21:24)
[2017-08-22] MEDS: INSULIN NovoLIN REGULAR SUPPLEMENTAL SCALE SQ SCH ×4 (06:00→18:00)
[2017-08-22 06:22] LABS: BICARBONATE 21.3 MEQ/L (21.0-32.0); MAGNESIUM 2.3 MG/DL (1.5-2.5); POTASSIUM 4.3 MEQ/L (3.5-5.1)
--- NOTE | 2017-08-22 07:42 | HHI.CCPN ---
Subjective Remarks/Hospital Course 57-year-old white female with a history of a longstanding COPD and rheumatoid arthritis and fibromyalgia, was admitted with pain and swelling of the left elbow. The patient apparently was out of town and tripped and fell on her elbow injuring the elbow and requiring sutures for a laceration. Subsequently she developed swelling and redness and cellulitis and the patient was then brought to the ER where she was noted to have cellulitis with an abscessed area and now was seen by orthopedics and placed on antibiotic coverage for soft tissue infection with a joint abscess. She also was hypoxic upon admission and has been placed on oxygen via nasal cannula at 3 liters and she does have a cough and her chest x-ray that was done showed acute pulmonary infiltrates. Today she was in severe respiratory distress on the [facility] floor and the rapid response was called. She was transferred immediately to ICU and was intubated shortly after arrival due to severe respiratory distress and hypoxemia. 08/15: Gas exchange impaired, diffuse infiltrates persist. 08/16: Gas exchange remains markedly impaired. We are in for a long haul on the ventilator. 08/17: Gas exchange remains markedly impaired, PEEP 10 elevated FiO2. Diffuse interstitial infiltrates persist (On home oxygen). Extensive right arm and shoulder region DVT. 08/18: Converted to APRV for persistent hypoxemia. Leukocytosis persists. 08/19: A-aO2 gradient gradually improving. Family has reasonable concerns about the length of time she will require mechanical ventilation. They are at odds with each other about the terms defined in her advanced directive. I have asked them to bring the document to us. At this point the patient is gradually improving and will undergo spontaneous breathing trials within a day or two. 08/19: Tmax 100.2. Switched over to PRVC ventilation today. Will check ABG this afternoon. Not tolerating tube feeds currently at 20 cc an hour. 2 BMs yesterday documented. Arousable and follows commands on sedation vacation. 08/20: Yesterday, brought for hemoptysis. Suction trauma noted in the left main bronchus. Status post cold saline/sodium bicarbonate. Hemoglobin dropped from 9.8-7.1. No obvious source of bleeding. Denies abdominal pain. CT abdomen/pelvis pending. Rule out retroperitoneal bleed. Tolerating tube feeding. Hemolysis workup in process. Also noted, creatinine currently elevated at 3.3. Urine eosinophils were yesterday not performed. RN notified. Will do stat. Renal ultrasound revealed medical renal disease, left renal mass. 08/21: Afebrile. Creatinine is increased to 4.5. Urine output has increased however. Currently on PSV trial per pulmonology. CT abdomen/post revealed no retroperitoneal hematoma. Being transfused 2 units PRBCs today. Subjective 08/22: Resting comfortably in bed in no acute distress. Arousable falls commands. FiO2 at 50%. PEEP 10- 8. Will not attempt PSV trials today. Will need hemodialysis. Objective Vital Signs Date Time Temp Pulse Resp B/P (MAP) Pulse Ox O2 Delivery O2 Flow Rate FiO2 08/22/17 07:24 100 60 08/22/17 06:00 108 08/22/17 04:00 97.9 14 122/59 (80) 08/21/17 19:00 Mechanical Ventilator Intake and Output 08/22/17 08/22/17 08/23/17 08:00 16:00 00:00 Intake Total 953 ml Output Total 1425 ml Balance -472 ml Result Diagram: 08/22/17 0530 08/22/17 0530 Other Results Microbiology Date/Time Source Procedure Growth Status 08/18/17 10:23 Blood Peripheral Aerobic Blood Culture - Preliminary NO GROWTH IN 3 DAYS Resulted 08/18/17 10:23 Blood Peripheral Anaerobic Blood Culture - Preliminary NO GROWTH IN 3 DAYS Resulted 08/19/17 17:50 Bronchial Washings Left Lower Lobe Fungal Smear - Final NO FUNGAL ELEMENTS SEEN. Resulted 08/19/17 17:50 Bronchial Washings Left Lower Lobe Fungal Culture Pending Resulted 08/18/17 08:10 Urine Catheterized Urine Urine Culture - Final NO GROWTH IN 48 HOURS. Complete 08/07/17 19:48 Wound Elbow Fungal Smear - Final NO FUNGAL ELEMENTS SEEN. Resulted 08/07/17 19:48 Wound Elbow Fungal Culture - Preliminary NO GROWTH IN 2 WEEKS Resulted Imaging Last Impressions Abdomen/Pelvis CT 08/20/17 0000 Signed Impressions: Service Date/Time: Sunday, August 20, 2017 17:12 - CONCLUSION: 1. No evidence of discrete renal mass however there is decreased sensitivity without the use of contrast. 2. Minimal left perinephric stranding or fluid. 3. No evidence of hydronephrosis, nephrolithiasis or retroperitoneal hematoma. 4. Status post cholecystectomy. 5. Extensive lung infiltration. Mitesh Rojas MD Renal Ultrasound 08/19/17 0000 Signed Impressions: Service Date/Time: Saturday, August 19, 2017 13:50 - CONCLUSION: 1. Mildly increased renal cortical echogenicity consistent with medical renal disease. 2. Questionable minimally hyperechoic solid mass in the mid left kidney measuring 1.2 x 1.4 1.0 cm. Further evaluation may be performed with CT or MRI renal mass protocol on an outpatient basis. Jovi Loaiza MD Chest X-Ray 08/19/17 0000 Signed Impressions: Service Date/Time: Saturday, August 19, 2017 18:30 - CONCLUSION: 1. Findings of acute pulmonary edema. This is new when compared with the prior exam. Ranjit Espinal MD Upper Extremity Ultrasound 08/16/17 0000 Signed Impressions: Service Date/Time: Wednesday, August 16, 2017 13:39 - CONCLUSION: Extensive right upper extremity DVT Cleve Barnett MD Chest CT 08/10/17 0000 Signed Impressions: Service Date/Time: Thursday, August 10, 2017 17:36 - CONCLUSION: 1. Upper lobe predominant central emphysema with upper lobe predominant diffuse interstitial and groundglass opacities. Differential considerations include developing ARDS, atypical infection, pulmonary edema, sarcoidosis, and drug induced lung disease amongst other etiologies. 2. Trace right pleural effusion. Jovi Loaiza MD Elbow X-Ray 08/07/17 0000 Signed Impressions: Service Date/Time: Monday, August 07, 2017 13:12 - CONCLUSION: Joint effusion, no fracture Naveed Sage MD FACR Elbow MRI 08/07/17 0000 Signed Impressions: Service Date/Time: Monday, August 07, 2017 14:11 - CONCLUSION: Presumed inflammatory process mainly involving the brachialis. The joint is suspected to be infected as well. There is no osteomyelitis as yet. Neurovascular bundle is displaced medially there are brachial bifurcation findings have been discussed with Latosha FRANCOIS on today's date. Naveed Sage MD FACR Objective Remarks GENERAL: 57-year-old female, critically ill currently orotracheally intubated SKIN: Warm and dry. No rash HEAD: Normocephalic. EYES: No scleral icterus. No injection or drainage. NECK: Supple, trachea midline. Orally intubated. CARDIOVASCULAR: RRR. S1, S2. No S4. Without murmur RESPIRATORY: Coarse crackles appreciated throughout lung cabrera. No wheezing. GASTROINTESTINAL: Abdomen soft, non-tender, nondistended. BS active. MUSCULOSKELETAL: Status post excision and drainage of left elbow. Incision clean, dry. Right upper extremity edema 2+ NEURO EXAM: Moves 4 limbs. WENDY. Opens eyes. Follows simple commands Procedures Irrigation and debridement of left elbow A/P Assessment and Plan Neuro/Psych: Fibromyalgia Depression/anxiety Patient is currently on propofol at 30 mcg/kg per minute for sedation while intubated Added fentanyl drip as needed Goal of RA SS -2 Daily sedation vacation Continue doxepin 50 mill grams twice a day, fluoxetine 120 mg daily and bupropion 200 mg by mouth twice a day for depression/anxiety Continue gabapentin 300 mg morning and decreased from 600 mg to 300mg at night CV: Patient is currently hemodynamic stable and not requiring vasopressors and/or antihypertensives Resp: Acute hypoxemic respiratory failure secondary due to ILD/COPD Hemoptysis PC/AC rate 14. Inspiratory pressure 16. PEEP 8. Inspiratory time 2.1. FiO2 50% Ventilator bundle Albuterol/ipratropium aerosols every 6 hours with albuterol aerosols every 2 hours when necessary dyspnea Add budesonide aerosols 0.5 mg/2 mL one inhalation twice a day Methylprednisolone 40 mg IV 2 times a day will be continued Dr. Gonzalez - pulmonology is following Chest x-ray 08/20 revealed pulmonary fibrosis as interstitial lung disease without focal pneumothorax. Repeat after bronchoscopy revealed pulmonary edema? Status post bronchoscopy 08/20 for hemoptysis. There was some suction trauma with cessation of bleeding with cold saline/sodium bicarbonate GI: Goals Glucerna 1.5 goal 60 cc an hour Pantoprazole GI prophylaxis Docusate sodium 200 mg twice a day/senna liquid 8.6 mg twice a day for bowel regimen Currently on metoclopramide 5 mg IV every 8 hours for prokinetic bowel activity : Dee catheter has been placed for accurate I's and O's in a critically ill patient Endo: Hypothyroidism Continue levothyroxine 50 mcg daily Sliding-scale insulin with Accu-Cheks to maintain euglycemia/medium regimen of Novulin R while on steroids Rheum: RA Currently holding methotrexate 2.5 mg weekly. Likely resume when clinically indicated Continue folic acid 1 mg by mouth daily Renal: Acute kidney injury Left renal mass Vancomycin discontinued per infectious disease Negative urine eosinophil/creatinine and sodium reveal intrinsic renal disease Currently on bumetanide drip at 1 mg an hour. Renal ultrasound revealed medical renal disease with cortical thickening. Left renal mass 1.2 x 1.[address] did not reveal any evidence of mass.. This is a chronic issue with this patient according to family. Recheck BMP in a.m. BUN currently 117. Creatinine 5.5. Low complements and ANCA. Nephrology consultation. Possible hemodialysis today 08/22 Heme: Leukocytosis Macrocytic anemia Right upper extremity DVT Monitor CBC daily. Follow trends Ultrasound reveals nonocclusive thrombus right subclavian/axillary and occlusive thrombus radial/cephalic /10 held enoxaparin 80 mg subcutaneous twice a day in light of hemoptysis. Might attempt heparin drip 08/23. Recheck hemoglobin at 1400 hrs. 08/20 CT abdomen/pelvis ruled out retroperitoneal hematoma ID: MRSA left elbow Currently on levofloxacin and clindamycin per infectious disease Vancomycin discontinued 08/19 FEN: Hyperphosphatemia Replace electrolytes as clinically indicated Continue calcium acetate 1334 mg by mouth 3 times a day MSK: Status post ORIF left septic elbow 07/28 - MRSA Long-term antibiotics per infectious disease Access - Right IJ CVL Prophylaxis - GI - pantoprazole - DVT - SCD/enoxaparin 80 mg subcutaneous twice a day held in light of hemoptysis and anemia Critical Care: The total critical care time was 35 minutes. Time to perform other separately billable procedures was not included in the critical care time. Discussed with son and daughter at bedside. Will need hemodialysis today. Justin Srivastava MD Aug 22, 2017 07:42
[2017-08-22] MEDS: CHLORHEXIDINE 0.12% (ORAL KIT) 15 ML CUP MT SCH ×2 (08:00→21:21)
[2017-08-22] MEDS: FLUoxetine HCL 20 MG CAP PO SCH (08:05)
[2017-08-22] MEDS: LEVOTHYROXINE SODIUM 50 MCG TAB PO SCH (08:06)
[2017-08-22] MEDS: FOLIC ACID 1 MG TAB PO SCH (08:06)
[2017-08-22] MEDS: CALCIUM ACETATE 667 MG CAP PO SCH ×3 (08:06→17:25)
[2017-08-22] MEDS: CHOLECALCIFEROL (VIT D3) 1000 UNIT TAB PO SCH (08:06)
[2017-08-22] MEDS: methylPREDNISolone SOD SUCC 40 MG/1 ML VIAL IV PUSH SCH ×2 (08:06→21:21)
[2017-08-22] MEDS: GABAPENTIN 300 MG CAP PO SCH ×2 (08:06→21:20)
[2017-08-22] MEDS: DOXEPIN HCL 50 MG CAP PO SCH ×2 (08:06→21:23)
[2017-08-22] MEDS: buPROPion HCL 100 MG SUSTAINED RELEASE TAB PO SCH ×2 (08:06→21:23)
[2017-08-22] MEDS: PANTOPRAZOLE SODIUM 40 MG VIAL IV PUSH SCH (08:07)
[2017-08-22] MEDS: RESP: BUDESONIDE 0.5 MG/2 ML NEB NEB SCH ×2 (08:18→19:32)
[2017-08-22] MEDS: DOCUSATE SODIUM 100 MG/10 ML UDC PO SCH ×2 (09:00→21:19)
[2017-08-22] MEDS: guaiFENesin E.R. 600 MG TAB PO SCH ×2 (09:00→21:20)
[2017-08-22] MEDS: POLYETHYLENE GLYCOL 17 GM PKG NG SCH ×2 (09:00→21:18)
[2017-08-22] MEDS: SODIUM CHLORIDE 0.9% FLUSH 10 ML FLUSH IV FLUSH SCH ×3 (09:00→21:21)
[2017-08-22] MEDS: SENNOSIDES SYRUP 8.8 MG/5 ML CUP NG SCH ×2 (09:00→21:18)
[2017-08-22] MEDS: BUMETANIDE INJ 100 ML IV SCH (09:49)
[2017-08-22] MEDS ORDERED: MIDAZOLAM HCL 5 MG/ML VIAL (1 ML) ONE (11:30)
[2017-08-22] MEDS ORDERED: SODIUM CHLOR 0.9% 1000 ML INJ 1,000 ML IV PRN (11:51)
[2017-08-22] MEDS ORDERED: SODIUM CHLOR 0.9% 1000 ML INJ 1,000 ML OTHER PRN (11:51)
--- NOTE | 2017-08-22 11:51 | HHI.NPPN ---
Subjective Renal Failure: Acute Interval History Remains on vent, unresponsive. Renal function is worse although she is making urine. Edema persists. (Yanely Lipscomb) Review of Systems General General Remarks unable to evaluate (Yanely Lipscomb) Objective Data Data Vital Signs Date Time Temp Pulse Resp B/P (MAP) Pulse Ox O2 Delivery O2 Flow Rate FiO2 08/22/17 10:43 96 50 08/22/17 10:00 109 08/22/17 08:00 111 08/22/17 08:00 50 08/22/17 08:00 98.4 111 20 124/58 (80) 97 08/22/17 07:24 100 60 08/22/17 07:00 97 Mechanical Ventilator 40 08/22/17 06:00 108 08/22/17 04:35 95 60 08/22/17 04:00 60 08/22/17 04:00 102 08/22/17 04:00 97.9 102 14 122/59 (80) 95 08/22/17 02:00 102 08/22/17 00:57 97 60 08/22/17 00:00 98.6 112 20 151/76 (101) 95 08/22/17 00:00 60 08/22/17 00:00 112 08/21/17 22:00 110 08/21/17 21:07 93 60 08/21/17 20:00 98.6 114 21 154/70 (98) 92 08/21/17 20:00 114 08/21/17 20:00 60 08/21/17 19:00 94 Mechanical Ventilator 40 08/21/17 18:00 108 08/21/17 16:15 60 08/21/17 16:00 40 08/21/17 16:00 110 08/21/17 16:00 99.0 110 18 166/75 (105) 95 08/21/17 15:16 92 50 08/21/17 14:00 108 08/21/17 12:00 98.8 108 20 140/63 (88) 93 08/21/17 12:00 108 08/21/17 12:00 40 (Yanely Lipscomb) -: 08/22/17 0530 08/22/17 0530 Imaging Last 72 hours Impressions Abdomen/Pelvis CT 08/20/17 0000 Signed Impressions: Service Date/Time: Sunday, August 20, 2017 17:12 - CONCLUSION: 1. No evidence of discrete renal mass however there is decreased sensitivity without the use of contrast. 2. Minimal left perinephric stranding or fluid. 3. No evidence of hydronephrosis, nephrolithiasis or retroperitoneal hematoma. 4. Status post cholecystectomy. 5. Extensive lung infiltration. Mitesh Rojas MD Tubes & Lines: Dee Drip Comment propofol, fentanyl, bumex (Yanely Lipscomb B. TIER AND DETONATOR) Physical Exam General Appearance: Well Developed, Well Nourished, Comfortable Appearance Remarks intubated, unresponsive (RuelYanely B. TIER AND DETONATOR) Throat Throat Exam: Oral Mucosa [place] & Moist (RuelYanely B. TIER AND DETONATOR) Pulmonary Resp Exam: Clear Bilaterally, Breath Sounds Equal, Decreased Bases (George Lipscombon B. TIER AND DETONATOR) Cardiology CV Exam: Regular, Normal Sinus Rhythm, Good Perfusion (George Lipscombon B. TIER AND DETONATOR) Gastrointestinal/Abdomen GI Exam: Soft, Non-Tender, Bowel Sounds Present (George Lipscombon B. TIER AND DETONATOR) Musculoskeletal MS Exam: Joints Intact, Normal Tone, Unable to Ambulate (RuelYanely B. TIER AND DETONATOR) Integumentary Skin Exam: Warm, Dry, Intact Skin Remarks left elbow with sutures (George Lipscombon B. TIER AND DETONATOR) Extremeties Extremities Exam: Pedal Pulses Palpable, Moderate Edema, Pitting Edema (RuelYanely B. TIER AND DETONATOR) Neurologic Neuro Exam: Unresponsive, Sedated (RuelYanely B. TIER AND DETONATOR) VTE Prophylaxis Device: SCDs (RuelYanely B. TIER AND DETONATOR) Assessment/Plan Discussed Condition With: Patient, Daughter Assessment Summary: ROLAND/Acute Renal Failure, Acute Tubular Necrosis Problem List: (1) Acute renal failure ICD Codes: N17.9 - Acute kidney failure, unspecified Plan: She has normal renal function at baseline Suspected ATN from sepsis and renal hypoperfusion due to hypotension Low complement levels noted, HENRIQUE and hepatitis panel have been ordered vancomycin induced nephrotoxicity is also a consideration Persistent fluid overload persists Renal function is worse. Vascath to be placed, and HD to be initiated today and tomorrow, orders have been placed D/W daughter Stop Bumex gtt Follow fluid status, currently non oliguric Follow renal function, await renal recovery On calcium acetate for hyperphosphatemia Obtain daily labs (2) Joint infection ICD Codes: M00.9 - Pyogenic arthritis, unspecified Status: Acute Plan: ID is following s/p I&D on 08/07 On cefepime, clindamycin, and levaquin currently (3) Anemia ICD Codes: D64.9 - Anemia, unspecified Plan: Off anticoagulation given 2 units 08/21 (Yanely Lipscomb) Problem List: (1) Acute renal failure ICD Codes: N17.9 - Acute kidney failure, unspecified Plan: She has normal renal function at baseline Suspected ATN from sepsis and renal hypoperfusion due to hypotension Low complement levels noted, HENRIQUE and hepatitis panel have been ordered vancomycin induced nephrotoxicity is also a consideration Persistent fluid overload persists Renal function is worse. Vascath to be placed, and HD to be initiated today and tomorrow, orders have been placed D/W daughter Stop Bumex gtt Follow fluid status, currently non oliguric Follow renal function, await renal recovery On calcium acetate for hyperphosphatemia Obtain daily labs (2) Joint infection ICD Codes: M00.9 - Pyogenic arthritis, unspecified Status: Acute Plan: ID is following s/p I&D on 08/07 On cefepime, clindamycin, and levaquin currently (3) Anemia ICD Codes: D64.9 - Anemia, unspecified Plan: Off anticoagulation given 2 units 08/21 Plan patient was seen and examined. Non oliguric, but renal function is worse. Will initiate dialysis. Discussed with Dr. Srivastava. Discussed with family at the bedside. All questions answered. Agree with above assessment and plan. (Jaime Moya MD) Yanely Lipscomb Aug 22, 2017 11:51 Jaime Moya MD Aug 22, 2017 16:51
--- NOTE | 2017-08-22 11:53 | PD.PROCEDR ---
Procedure Note Procedure DATE: 08/22/2017 Hemodialysis LINE PLACEMENT: Left internal jugular vein. Ultrasound-guided INDICATION: hemo dialysis access CONSENT Informed consent for procedure was obtained. DESCRIPTION OF THE PROCEDURE The patient was placed in supine position. The skin was cleansed with Chloraprep. Additional barrier precautions included large sterile drape, sterile gloves, sterile gown, face mask, and hat. 1 % lidocaine was used for local anesthesia. Under direct ultrasound guidance and on initial attempt, the vein was accessed with an introducer needle. The guide wire was advanced and the tract was dilated. Using Seldinger technique a 14 D[place] 20 cm Schlon hemodialysis catheter was advanced to a depth of 20 centimeters. The guide wire was removed. All ports had good return of dark venous blood and flushed easily with saline. The dialysis catheter was secured with 2.0 silk. A sterile dressing with antibiotic disc was applied. ESTIMATED BLOOD LOSS: Minimal COMPLICATIONS: No apparent complications. STAT chest x-ray pending at time of dictation Justin Srivastava MD Aug 22, 2017 11:53
[2017-08-22] MEDS ORDERED: NITROGLYCERIN 0.4 MG SL 25 TABS/BTL SL PRN (12:00)
[2017-08-22] MEDS ORDERED: diphenhydrAMINE HCL 25 MG CAP PO PRN (12:00)
[2017-08-22] MEDS ORDERED: ALBUMIN 25% INJ 100 ML IV PRN (12:00)
[2017-08-22] MEDS ORDERED: HEPARIN SODIUM - IV 10,000 UNITS/10 ML VIAL IV FLUSH PRN (12:00)
[2017-08-22] MEDS ORDERED: ACETAMINOPHEN 325 MG TAB PO PRN (12:00)
[2017-08-22] MEDS ORDERED: SODIUM CHLORIDE 0.9% FLUSH 10 ML FLUSH IV FLUSH PRN ×2 (12:00)
[2017-08-22] MEDS ORDERED: cloNIDine HCL 0.1 MG TAB PO PRN (12:00)
[2017-08-22] MEDS ORDERED: ONDANSETRON HCL 4 MG/2 ML VIAL IV PUSH PRN (12:00)
[2017-08-22] MEDS ORDERED: MANNITOL 12.5 GM/50 ML VIAL IV PRN (12:00)
[2017-08-22] MEDS ORDERED: GELATIN 12 MM/7 MM FOAM TOP PRN (12:00)
[2017-08-22] MEDS ORDERED: HEPARIN SODIUM - IV 2,000 UNITS/2 ML VIAL IV FLUSH PRN (12:00)
[2017-08-22 13:07] LABS: HEPATITIS B SURFACE ANTIBODY 0 mIU/mL
--- NOTE | 2017-08-22 13:09 | RADRPT ---
EXAM DATE/TIME: 08/22/2017 12:09 [facility] COMPARISON: CHEST SINGLE AP, August 19, 2017, 18:30. INDICATIONS : Post central line placemen MEDICAL HISTORY : Diverticulitis. Chronic obstructive pulmonary disease. Gastroesophageal reflux disease. IBS, Fibr omyalgia, PTSD, Arthritis, Dialysis SURGICAL HISTORY : Appendectomy. Cholecystectomy. Tubal ligation. knee surgerry ENCOUNTER: Subsequent ACUITY: 2 weeks PAIN SCORE: Non-responsive. LOCATION: Bilateral chest FINDINGS: A single portable frontal view of the chest shows diffuse bilateral pulmonary infiltrates more pronou nced within the bases. These have shown slight improvement from the prior exam. Endotracheal tube tip 3 cm from the gregory. Nasogastric tube courses off the inferior margin of the film. Left internal ju gular vein dialysis catheter has been placed. Tip is in the vena cava. No pneumothorax. Right-sided c entral line remains. CONCLUSION: 1. Slight improvement in the bilateral pulmonary infiltrates. 2. Interval placement of a temporary dialysis catheter on the left. No pneumothorax. Michelet Moore Jr., MD on August 22, 2017 at 13:06 Board Certified Radiologist. This report was verified electronically.
--- NOTE | 2017-08-22 15:43 | HHI.IDPN ---
Subjective Subjective Remarks no fever Pt is creatinine again up today, for HD today remains on vent diarrhea, c.diff negative Antibiotics l;evaquine clindamycin Allergies: Coded Allergies: No Known Allergies (Unverified , 08/07/17) Objective . Vital Signs Date Time Temp Pulse Resp B/P (MAP) Pulse Ox O2 Delivery O2 Flow Rate FiO2 08/22/17 14:00 104 08/22/17 12:00 100 08/22/17 12:00 60 08/22/17 12:00 98.8 100 15 127/57 (80) 99 08/22/17 10:43 96 50 08/22/17 10:00 109 08/22/17 08:00 111 08/22/17 08:00 50 08/22/17 08:00 98.4 111 20 124/58 (80) 97 08/22/17 07:24 100 60 08/22/17 07:00 97 Mechanical Ventilator 40 08/22/17 06:00 108 08/22/17 04:35 95 60 08/22/17 04:00 60 08/22/17 04:00 102 08/22/17 04:00 97.9 102 14 122/59 (80) 95 08/22/17 02:00 102 08/22/17 00:57 97 60 08/22/17 00:00 98.6 112 20 151/76 (101) 95 08/22/17 00:00 60 08/22/17 00:00 112 08/21/17 22:00 110 08/21/17 21:07 93 60 08/21/17 20:00 98.6 114 21 154/70 (98) 92 08/21/17 20:00 114 08/21/17 20:00 60 08/21/17 19:00 94 Mechanical Ventilator 40 08/21/17 18:00 108 08/21/17 16:15 60 08/21/17 16:00 40 08/21/17 16:00 110 08/21/17 16:00 99.0 110 18 166/75 (105) 95 08/22/17 08/22/17 08/23/17 15:00 23:00 07:00 Intake Total 104 ml Balance 104 ml IV Total 104 ml . Laboratory Tests Test 08/21/17 05:30 08/21/17 20:45 08/22/17 05:30 White Blood Count 15.7 TH/MM3 15.8 TH/MM3 Red Blood Count 2.07 MIL/MM3 2.93 MIL/MM3 Hemoglobin 6.9 GM/DL 9.4 GM/DL 9.5 GM/DL Hematocrit 20.9 % 28.3 % 28.0 % Mean Corpuscular Volume 100.9 FL 95.5 FL Mean Corpuscular Hemoglobin 33.2 PG 32.4 PG Mean Corpuscular Hemoglobin Concent 32.9 % 33.9 % Red Cell Distribution Width 14.7 % 17.3 % Platelet Count 271 TH/MM3 301 TH/MM3 Mean Platelet Volume 8.7 FL 8.5 FL Neutrophils (%) (Auto) 89.8 % Lymphocytes (%) (Auto) 1.5 % Monocytes (%) (Auto) 7.5 % Eosinophils (%) (Auto) 1.0 % Basophils (%) (Auto) 0.2 % Neutrophils # (Auto) 14.1 TH/MM3 Lymphocytes # (Auto) 0.2 TH/MM3 Monocytes # (Auto) 1.2 TH/MM3 Eosinophils # (Auto) 0.1 TH/MM3 Basophils # (Auto) 0.0 TH/MM3 CBC Comment AUTO DIFF Differential Total Cells Counted 100 Neutrophils % (Manual) 66 % Band Neutrophils % 17 % Lymphocytes % 2 % Monocytes % 4 % Eosinophils % 3 % Basophils % 1 % Neutrophils # (Manual) 14.1 TH/MM3 Metamyelocytes 3 % Myelocytes 4 % Differential Comment FINAL DIFF MANUAL Platelet Estimate NORMAL Platelet Morphology Comment NORMAL Laboratory Tests Test 08/21/17 05:30 08/22/17 05:30 Blood Urea Nitrogen 97 MG/DL 117 MG/DL Creatinine 4.45 MG/DL 5.49 MG/DL Random Glucose 107 MG/DL 137 MG/DL Total Protein 5.5 GM/DL Albumin 2.0 GM/DL Calcium Level 7.9 MG/DL 8.3 MG/DL Phosphorus Level 8.8 MG/DL 7.8 MG/DL Magnesium Level 2.4 MG/DL 2.3 MG/DL Alkaline Phosphatase 55 U/L Aspartate Amino Transf (AST/SGOT) 52 U/L Alanine Aminotransferase (ALT/SGPT) 88 U/L Total Bilirubin 0.6 MG/DL Sodium Level 138 MEQ/L 139 MEQ/L Potassium Level 4.6 MEQ/L 4.3 MEQ/L Chloride Level 105 MEQ/L 104 MEQ/L Carbon Dioxide Level 21.6 MEQ/L 21.3 MEQ/L Anion Gap 11 MEQ/L 14 MEQ/L Estimat Glomerular Filtration Rate 10 ML/MIN 8 ML/MIN Microbiology Date/Time Source Procedure Growth Status 08/19/17 17:50 Bronchial Washings Left Lower Lobe Fungal Smear - Final NO FUNGAL ELEMENTS SEEN. Resulted 08/19/17 17:50 Bronchial Washings Left Lower Lobe Fungal Culture Pending Resulted 08/19/17 17:50 Bronchial Washings Left Lower Lobe Acid Fast Stain - Final NO ACID FAST BACILLI SEEN Resulted 08/19/17 17:50 Bronchial Washings Left Lower Lobe Mycobacterial Culture Pending Resulted 08/19/17 17:50 Bronchial Washings Left Lower Lobe Gram Stain - Final Complete 08/19/17 17:50 Bronchial Washings Left Lower Lobe Bronchial Culture - Final NO GROWTH IN 48 HOURS. Complete Imaging Last Impressions Chest X-Ray 08/22/17 1153 Signed Impressions: Service Date/Time: August 12:09 - CONCLUSION: 1. Slight improvement in the bilateral pulmonary infiltrates. 2. Interval placement of a temporary dialysis catheter on the left. No pneumothorax. Michelet Moore Jr., MD Abdomen/Pelvis CT 08/20/17 0000 Signed Impressions: Service Date/Time: Sunday, August 20, 2017 17:12 - CONCLUSION: 1. No evidence of discrete renal mass however there is decreased sensitivity without the use of contrast. 2. Minimal left perinephric stranding or fluid. 3. No evidence of hydronephrosis, nephrolithiasis or retroperitoneal hematoma. 4. Status post cholecystectomy. 5. Extensive lung infiltration. Mitesh Rojas MD Renal Ultrasound 08/19/17 0000 Signed Impressions: Service Date/Time: Saturday, August 19, 2017 13:50 - CONCLUSION: 1. Mildly increased renal cortical echogenicity consistent with medical renal disease. 2. Questionable minimally hyperechoic solid mass in the mid left kidney measuring 1.2 x 1.4 1.0 cm. Further evaluation may be performed with CT or MRI renal mass protocol on an outpatient basis. Jovi Loaiza MD Upper Extremity Ultrasound 08/16/17 0000 Signed Impressions: Service Date/Time: Wednesday, August 16, 2017 13:39 - CONCLUSION: Extensive right upper extremity DVT Cleve Barnett MD Chest CT 08/10/17 0000 Signed Impressions: Service Date/Time: Thursday, August 10, 2017 17:36 - CONCLUSION: 1. Upper lobe predominant central emphysema with upper lobe predominant diffuse interstitial and groundglass opacities. Differential considerations include developing ARDS, atypical infection, pulmonary edema, sarcoidosis, and drug induced lung disease amongst other etiologies. 2. Trace right pleural effusion. Jovi Loaiza MD Elbow X-Ray 08/07/17 0000 Signed Impressions: Service Date/Time: Monday, August 07, 2017 13:12 - CONCLUSION: Joint effusion, no fracture Naveed Sage MD FACR Elbow MRI 08/07/17 0000 Signed Impressions: Service Date/Time: Monday, August 07, 2017 14:11 - CONCLUSION: Presumed inflammatory process mainly involving the brachialis. The joint is suspected to be infected as well. There is no osteomyelitis as yet. Neurovascular bundle is displaced medially there are brachial bifurcation findings have been discussed with Latosha FRANCOIS on today's date. Naveed Sage MD FACR Physical Exam CONSTITUTIONAL/GENERAL: This is an adequately nourished patient, + increased resp effort TUBES/LINES/DRAINS: SKIN: No jaundice, rashes, or lesions. CARDIOVASCULAR: Regular rate and rhythm without murmurs, gallops, or rubs. RESPIRATORY/CHEST: Symmetric, tachypneic decreased BS b/l GASTROINTESTINAL: Abdomen soft, non-tender, mildly distended. MUSCULOSKELETAL: Extremities without clubbing, cyanosis, Prominent RUE with persistant prominent non pitting edema. No change LUE with very clean healing incision w/o erythema or edema + increasing edema, no erythema : sewell iplace with somewhat cloudy urine NEUROLOGICAL: sedated, PSYCHIATRIC: unable to assess Assessment & Plan Remarks Assessment and Plan Septic arthitis L elbow with deep abscess L brachialis muscle, MRSA sp I+D - healed, no e/o ongoing infx Acute VDRF - PNA vs non ifectious pneumonitis -not favoring PNA, more likely chronic intersitial lung disaes with advanced chronic resp failure interstitial and groundglass opacities ? atypical PNA Severe leukocytosis RA, on Humira RUE DVT Low grade fever ? from DVT - improved Low compliment levels - pt with underlying CTD Worsening AFR vancomycin stopped - no eosinophils ? UTI - UA abn, clx negative, but CT with stranding Pt is critically ill Hemoptysis, sp BAL, clx negative Worsening creatinine, going on HD Rec's: - dc levaquine - fu BAl clx untill final avoid nephotoxic meds cont clindamycin to completed the planned 4 weeks Dw Marilyn Prince RN, MD Aug 22, 2017 15:43
--- NOTE | 2017-08-22 16:34 | HHI.PR ---
Subjective Remarks on the ventilator sedated Objective Vital Signs Date Time Temp Pulse Resp B/P (MAP) Pulse Ox O2 Delivery O2 Flow Rate FiO2 08/22/17 15:47 95 50 08/22/17 14:00 104 08/22/17 12:00 100 08/22/17 12:00 60 08/22/17 12:00 98.8 100 15 127/57 (80) 99 08/22/17 10:43 96 50 08/22/17 10:00 109 08/22/17 08:00 111 08/22/17 08:00 50 08/22/17 08:00 98.4 111 20 124/58 (80) 97 08/22/17 07:24 100 60 08/22/17 07:00 97 Mechanical Ventilator 40 08/22/17 06:00 108 08/22/17 04:35 95 60 08/22/17 04:00 60 08/22/17 04:00 102 08/22/17 04:00 97.9 102 14 122/59 (80) 95 08/22/17 02:00 102 08/22/17 00:57 97 60 08/22/17 00:00 98.6 112 20 151/76 (101) 95 08/22/17 00:00 60 08/22/17 00:00 112 08/21/17 22:00 110 08/21/17 21:07 93 60 08/21/17 20:00 98.6 114 21 154/70 (98) 92 08/21/17 20:00 114 08/21/17 20:00 60 08/21/17 19:00 94 Mechanical Ventilator 40 08/21/17 18:00 108 I/O 08/21/17 08/21/17 08/21/17 08/22/17 08/22/17 08/22/17 07:00 15:00 23:00 07:00 15:00 23:00 Intake Total 289 ml 1154 ml 993 ml 953 ml 104 ml Output Total 900 ml 1350 ml 1425 ml Balance -611 ml 1154 ml -357 ml -472 ml 104 ml IV Total 155 ml 254 ml 410 ml 104 ml Tube Feeding 134 ml 413 ml 543 ml Packed Cells 400 ml 400 ml Blood Product IV Normal Saline Flush 500 ml Other 180 ml Output Urine Total 900 ml 1350 ml 1425 ml # Bowel Movements 2 4 2 Result Diagram: 08/22/1752908/22/17529 Objective Remarks GENERAL: SKIN: Warm and dry. HEAD: Atraumatic. Normocephalic. EYES: Pupils equal and round. No scleral icterus. No injection or drainage. ENT: No nasal bleeding or discharge. Mucous membranes pink and moist. NECK: Trachea midline. No JVD. CARDIOVASCULAR: Regular rate and rhythm. RESPIRATORY: No accessory muscle use. Clear to auscultation. Breath sounds equal bilaterally. GASTROINTESTINAL: Abdomen soft, non-tender, nondistended. Hepatic and splenic margins not palpable. MUSCULOSKELETAL: Extremities without clubbing, cyanosis, or edema. No obvious deformities. NEUROLOGICAL: Awake and alert. No obvious cranial nerve deficits. Motor grossly within normal limits. Five out of 5 muscle strength in the arms and legs. Normal speech. PSYCHIATRIC: Appropriate mood and affect; insight and judgment normal. Assessment and Plan Assessment and Plan respiratory failure sepsis vent. dependent plan vent. support antibiotics per ID WEAN TOLERATED Stacey Ibarra MD Aug 22, 2017 16:34
[2017-08-22] MEDS: GENTAMICIN SULFATE (DIALYSIS USE ONLY) 20 MG/2 ML VIAL OTHER PRN (20:11)
[2017-08-23] VITALS (18 sets, daily range): BP systolic 101–141; BP diastolic 57–69; PULSE 102–126; RESP 15–21; TEMP 99.3–101.5; O2SAT 89–98
[2017-08-23] MEDS: RESP: ALBUTEROL 2.5 MG/IPRATROPIUM 0.5 MG NEB (SCH) NEB ×6 (00:22→19:30)
[2017-08-23] MEDS: INSULIN NovoLIN REGULAR SUPPLEMENTAL SCALE SQ SCH ×5 (00:41→23:34)
[2017-08-23] MEDS: PROPOFOL 1000 MG/100 ML IV PRN ×5 (02:14→23:17)
--- NOTE | 2017-08-23 03:22 | RADRPT ---
EXAM DATE/TIME: 08/23/2017 01:34 [facility] COMPARISON: CHEST SINGLE AP, August 22, 2017, 12:09. INDICATIONS : Evaluate for respiratory failure. MEDICAL HISTORY : Diverticulitis. Chronic obstructive pulmonary disease. Gastroesophageal reflux disease. IBS, Fibromya lgia, PTSD, Arthritis, Dialysis. SURGICAL HISTORY : Appendectomy. Cholecystectomy. Tubal ligation. ENCOUNTER: Subsequent ACUITY: 2 weeks PAIN SCORE: Non-responsive. LOCATION: chest FINDINGS: A single view of the chest demonstrates endotracheal tube in good position. Nasogastric tube enters s tomach. Bilateral central lines in superior vena cava. Bilateral patchy air space consolidation. No e ffusion. No pneumothorax. CONCLUSION: 1. Support apparatus in satisfactory position. Bilateral patchy airspace disease. No significant effu royce. Jarrett Keenan MD on August 23, 2017 at 3:19 Board Certified Radiologist. This report was verified electronically.
[2017-08-23] MEDS: CLINDAMYCIN 600 MG/NS 100 ML IV SCH ×4 (05:21→12:15)
[2017-08-23] MEDS: ARTIFICIAL TEARS OPTH SOLN 15 ML BTL EACH EYE SCH ×3 (05:22→21:29)
[2017-08-23] MEDS: METOCLOPRAMIDE HCL 10 MG/2 ML VIAL IV PUSH SCH ×3 (05:23→21:53)
[2017-08-23 05:29] LABS: AUTOMATED NEUTROPHIL # 14.6 TH/MM3 (1.8-7.7); BASOPHIL # 0.1 TH/MM3 (0-0.2); BASOPHIL % 0.3 % (0.0-2.0); EOSINOPHIL # 0.5 TH/MM3 (0-0.4); EOSINOPHIL % 3.1 % (0.0-4.0); HEMATOCRIT 29.2 % (35.0-46.0); LYMPH % 2.4 % (9.0-44.0); LYMPHOCYTE # 0.4 TH/MM3 (1.0-4.8); MEAN CELL VOLUME 95.3 FL (80.0-100.0); MEAN CORPUSCULAR HEMOGLOBIN 32.3 PG (27.0-34.0); MEAN CORPUSCULAR HGB CONC 33.8 % (32.0-36.0); MONO % 6.6 % (0.0-8.0); NEUT % 87.6 % (16.0-70.0); PLATELET COUNT 273 TH/MM3 (150-450); RED BLOOD COUNT 3.07 MIL/MM3 (4.00-5.30); RED CELL DISTRIBUTION WIDTH 17.8 % (11.6-17.2); WHITE BLOOD COUNT 16.7 TH/MM3 (4.0-11.0)
[2017-08-23 05:31] LABS: HEMO FLAGS AUTO DIFF
--- NOTE | 2017-08-23 07:35 | HHI.CCPN ---
Subjective Remarks/Hospital Course 57-year-old white female with a history of a longstanding COPD and rheumatoid arthritis and fibromyalgia, was admitted with pain and swelling of the left elbow. The patient apparently was out of town and tripped and fell on her elbow injuring the elbow and requiring sutures for a laceration. Subsequently she developed swelling and redness and cellulitis and the patient was then brought to the ER where she was noted to have cellulitis with an abscessed area and now was seen by orthopedics and placed on antibiotic coverage for soft tissue infection with a joint abscess. She also was hypoxic upon admission and has been placed on oxygen via nasal cannula at 3 liters and she does have a cough and her chest x-ray that was done showed acute pulmonary infiltrates. Today she was in severe respiratory distress on the [facility] floor and the rapid response was called. She was transferred immediately to ICU and was intubated shortly after arrival due to severe respiratory distress and hypoxemia. 08/15: Gas exchange impaired, diffuse infiltrates persist. 08/16: Gas exchange remains markedly impaired. We are in for a long haul on the ventilator. 08/17: Gas exchange remains markedly impaired, PEEP 10 elevated FiO2. Diffuse interstitial infiltrates persist (On home oxygen). Extensive right arm and shoulder region DVT. 08/18: Converted to APRV for persistent hypoxemia. Leukocytosis persists. 08/19: A-aO2 gradient gradually improving. Family has reasonable concerns about the length of time she will require mechanical ventilation. They are at odds with each other about the terms defined in her advanced directive. I have asked them to bring the document to us. At this point the patient is gradually improving and will undergo spontaneous breathing trials within a day or two. 08/19: Tmax 100.2. Switched over to PRVC ventilation today. Will check ABG this afternoon. Not tolerating tube feeds currently at 20 cc an hour. 2 BMs yesterday documented. Arousable and follows commands on sedation vacation. 08/20: Yesterday, brought for hemoptysis. Suction trauma noted in the left main bronchus. Status post cold saline/sodium bicarbonate. Hemoglobin dropped from 9.8-7.1. No obvious source of bleeding. Denies abdominal pain. CT abdomen/pelvis pending. Rule out retroperitoneal bleed. Tolerating tube feeding. Hemolysis workup in process. Also noted, creatinine currently elevated at 3.3. Urine eosinophils were yesterday not performed. RN notified. Will do stat. Renal ultrasound revealed medical renal disease, left renal mass. 08/21: Afebrile. Creatinine is increased to 4.5. Urine output has increased however. Currently on PSV trial per pulmonology. CT abdomen/post revealed no retroperitoneal hematoma. Being transfused 2 units PRBCs today. 08/22: Resting comfortably in bed in no acute distress. Arousable falls commands. FiO2 at 50%. PEEP 10- 8. Will not attempt PSV trials today. Will need hemodialysis. Subjective 08/23: Increased secretions noted. Patient will be pancultured. Status post hemodialysis yesterday. Tolerating tube feeding. Positive bowel movement. Objective Vital Signs Date Time Temp Pulse Resp B/P (MAP) Pulse Ox O2 Delivery O2 Flow Rate FiO2 08/23/17 06:00 105 08/23/17 04:03 95 60 08/23/17 04:00 99.3 17 141/67 (91) 08/22/17 19:00 Mechanical Ventilator Intake and Output 08/23/17 08/23/17 08/24/17 08:00 16:00 00:00 Intake Total 723 ml Output Total 600 ml Balance 123 ml Result Diagram: 08/23/17 0450 08/22/17 0530 Other Results Microbiology Date/Time Source Procedure Growth Status 08/18/17 10:23 Blood Peripheral Aerobic Blood Culture - Preliminary NO GROWTH IN 4 DAYS Resulted 08/18/17 10:23 Blood Peripheral Anaerobic Blood Culture - Preliminary NO GROWTH IN 4 DAYS Resulted 08/19/17 17:50 Bronchial Washings Left Lower Lobe Fungal Smear - Final NO FUNGAL ELEMENTS SEEN. Resulted 08/19/17 17:50 Bronchial Washings Left Lower Lobe Fungal Culture Pending Resulted 08/18/17 08:10 Urine Catheterized Urine Urine Culture - Final NO GROWTH IN 48 HOURS. Complete 08/07/17 19:48 Wound Elbow Fungal Smear - Final NO FUNGAL ELEMENTS SEEN. Resulted 08/07/17 19:48 Wound Elbow Fungal Culture - Preliminary NO GROWTH IN 2 WEEKS Resulted Imaging Last Impressions Chest X-Ray 08/22/17 1153 Signed Impressions: Service Date/Time: , August 22, 2017 12:09 - CONCLUSION: 1. Slight improvement in the bilateral pulmonary infiltrates. 2. Interval placement of a temporary dialysis catheter on the left. No pneumothorax. Michelet Moore Jr., MD Abdomen/Pelvis CT 08/20/17 0000 Signed Impressions: Service Date/Time: Sunday, August 20, 2017 17:12 - CONCLUSION: 1. No evidence of discrete renal mass however there is decreased sensitivity without the use of contrast. 2. Minimal left perinephric stranding or fluid. 3. No evidence of hydronephrosis, nephrolithiasis or retroperitoneal hematoma. 4. Status post cholecystectomy. 5. Extensive lung infiltration. Mitesh Rojas MD Renal Ultrasound 08/19/17 0000 Signed Impressions: Service Date/Time: Saturday, August 19, 2017 13:50 - CONCLUSION: 1. Mildly increased renal cortical echogenicity consistent with medical renal disease. 2. Questionable minimally hyperechoic solid mass in the mid left kidney measuring 1.2 x 1.4 1.0 cm. Further evaluation may be performed with CT or MRI renal mass protocol on an outpatient basis. Jovi Loaiza MD Upper Extremity Ultrasound 08/16/17 0000 Signed Impressions: Service Date/Time: Wednesday, August 16, 2017 13:39 - CONCLUSION: Extensive right upper extremity DVT Cleve Barnett MD Chest CT 08/10/17 0000 Signed Impressions: Service Date/Time: Thursday, August 10, 2017 17:36 - CONCLUSION: 1. Upper lobe predominant central emphysema with upper lobe predominant diffuse interstitial and groundglass opacities. Differential considerations include developing ARDS, atypical infection, pulmonary edema, sarcoidosis, and drug induced lung disease amongst other etiologies. 2. Trace right pleural effusion. Jovi Loaiza MD Elbow X-Ray 08/07/17 0000 Signed Impressions: Service Date/Time: Monday, August 07, 2017 13:12 - CONCLUSION: Joint effusion, no fracture Naveed Sage MD FACR Elbow MRI 08/07/17 0000 Signed Impressions: Service Date/Time: Monday, August 07, 2017 14:11 - CONCLUSION: Presumed inflammatory process mainly involving the brachialis. The joint is suspected to be infected as well. There is no osteomyelitis as yet. Neurovascular bundle is displaced medially there are brachial bifurcation findings have been discussed with Latosha FRANCOIS on today's date. Naveed Sage MD FACR Objective Remarks GENERAL: 57-year-old female, critically ill currently orotracheally intubated SKIN: Warm and dry. No rash HEAD: Normocephalic. EYES: No scleral icterus. No injection or drainage. NECK: Supple, trachea midline. Orally intubated. CARDIOVASCULAR: RRR. S1, S2. No S4. Without murmur RESPIRATORY: Coarse crackles appreciated throughout lung cabrera. No wheezing. GASTROINTESTINAL: Abdomen soft, non-tender, nondistended. BS active. MUSCULOSKELETAL: Status post excision and drainage of left elbow. Incision clean, dry. Right upper extremity edema 2+ NEURO EXAM: Moves 4 limbs. WENDY. Opens eyes. Follows simple commands Procedures Irrigation and debridement of left elbow A/P Assessment and Plan Neuro/Psych: Fibromyalgia Depression/anxiety Patient is currently on propofol at 50 mcg/kg per minute for sedation while intubated Added fentanyl drip as needed Goal of RA SS -2 Daily sedation vacation Continue doxepin 50 mill grams twice a day, fluoxetine 120 mg daily and bupropion 200 mg by mouth twice a day for depression/anxiety Continue gabapentin 300 mg morning and decreased from 600 mg to 300mg at night CV: Patient is currently hemodynamic stable and not requiring vasopressors and/or antihypertensives Resp: Acute hypoxemic respiratory failure secondary due to ILD/COPD Hemoptysis PC/AC rate 14. Inspiratory pressure 16. PEEP 10. Inspiratory time 2.1. FiO2 50% Ventilator bundle Albuterol/ipratropium aerosols every 4 hours with albuterol aerosols every 2 hours when necessary dyspnea Add budesonide aerosols 0.5 mg/2 mL one inhalation twice a day And 3% hypertonic saline aerosols every 4 hours for thinning secretions Already guaifenesin 400 every 8 hours Methylprednisolone 40 mg IV 2 times a day will be continued Dr. Lisa Ibarra - pulmonology is following Chest x-ray 08/20 revealed pulmonary fibrosis as interstitial lung disease without focal pneumothorax. Repeat after bronchoscopy revealed pulmonary edema? Status post bronchoscopy 08/20 for hemoptysis. There was some suction trauma with cessation of bleeding with cold saline/sodium bicarbonate GI: Goals Nepro 50 cc an hour Lansoprazole 30 cc daily GI prophylaxis Docusate sodium 200 mg twice a day/senna liquid 8.6 mg twice a day for bowel regimen and propylene glycol 17 g twice a day Currently on metoclopramide 5 mg IV every 8 hours for prokinetic bowel activity : Dee catheter has been placed for accurate I's and O's in a critically ill patient Endo: Hypothyroidism Continue levothyroxine 50 mcg daily Sliding-scale insulin with Accu-Cheks to maintain euglycemia/medium regimen of Novulin R while on steroids Rheum: RA Currently holding methotrexate 2.5 mg weekly. Likely resume when clinically indicated Continue folic acid 1 mg by mouth daily Renal: Acute kidney injury Left renal mass Vancomycin discontinued per infectious disease Negative urine eosinophil/creatinine and sodium reveal intrinsic renal disease Currently on bumetanide drip at 1 mg an hour. Gated C3 and C4 both are low. Rheumatoid factor negative. Renal ultrasound revealed medical renal disease with cortical thickening. Left renal mass 1.2 x 1.[address] did not reveal any evidence of mass.. This is a chronic issue with this patient according to family. Recheck BMP in a.m. yesterday, BUN 117. Creatinine 5.5. Nephrology consultation. Dr. Moya Heme: Leukocytosis Macrocytic anemia Right upper extremity DVT Monitor CBC daily. Follow trends Ultrasound reveals nonocclusive thrombus right subclavian/axillary and occlusive thrombus radial/cephalic 08/20 held enoxaparin 80 mg subcutaneous twice a day in light of hemoptysis. Initiate heparin drip 08/23. Recheck hemoglobin at 1400 hrs. 08/20 CT abdomen/pelvis ruled out retroperitoneal hematoma ID: MRSA left elbow Currently on clindamycin per infectious disease complete 4 weeks therapy Vancomycin discontinued 08/19. Cefepime discontinued 08/20. The ofloxacin discontinued 08/22 Bronchoscopy cultures 08/19 no growth today. Blood cultures 2, urine and sputum today 08/23 FEN: Hyperphosphatemia Replace electrolytes as clinically indicated Continue calcium acetate 1334 mg by mouth 3 times a day MSK: Status post ORIF left septic elbow 07/28 - MRSA Long-term antibiotics per infectious disease Access - Right IJ CVL - Left IJ hemodialysis catheter placed 08/22. Prophylaxis - GI - lansoprazole - DVT - SCD/heparin drip Critical Care: The total critical care time was 35 minutes. Time to perform other separately billable procedures was not included in the critical care time. Justin Srivastava MD Aug 23, 2017 07:35
[2017-08-23] MEDS: RESP: BUDESONIDE 0.5 MG/2 ML NEB NEB SCH ×2 (07:52→19:30)
[2017-08-23] MEDS: CHOLECALCIFEROL (VIT D3) 1000 UNIT TAB PO SCH (07:53)
[2017-08-23] MEDS: FOLIC ACID 1 MG TAB PO SCH (07:53)
[2017-08-23] MEDS: LEVOTHYROXINE SODIUM 50 MCG TAB PO SCH (07:53)
[2017-08-23] MEDS: buPROPion HCL 100 MG SUSTAINED RELEASE TAB PO SCH ×2 (07:53→20:04)
[2017-08-23] MEDS: FLUoxetine HCL 20 MG CAP PO SCH (07:53)
[2017-08-23] MEDS: DOXEPIN HCL 50 MG CAP PO SCH ×2 (07:54→20:04)
[2017-08-23] MEDS: CALCIUM ACETATE 667 MG CAP PO SCH ×3 (07:54→17:39)
[2017-08-23] MEDS: methylPREDNISolone SOD SUCC 40 MG/1 ML VIAL IV PUSH SCH ×2 (07:54→20:04)
[2017-08-23 07:58] LABS: BANDS 17 % (0-6); EOSINOPHILS 2 % (0-4); METAMYELOCYTES 3 % (0-1); MYELOCYTES 7 % (0-0); NEUTROPHIL # MANUAL DIFF 15.2 TH/MM3 (1.8-7.7); PLATELET ESTIMATE SMEAR NORMAL (NORMAL); PLATELET MORPHOLOGY ENLARGED (NORMAL); POLYS (SEG NEUTROPHILS) 64 % (16-70); SCAN/DIFF FINAL DIFF MANUAL; WBC DIFF SAMPLE 100
[2017-08-23] MEDS ORDERED: RESP: ALBUTEROL 2.5 MG/IPRATROPIUM 0.5 MG NEB (SCH) NEB (08:00)
[2017-08-23] MEDS: CHLORHEXIDINE 0.12% (ORAL KIT) 15 ML CUP MT SCH ×2 (08:00→20:00)
[2017-08-23] MEDS: RESP: SODIUM CHLORIDE 3% 4 ML NEB NEB SCH ×4 (08:00→19:30)
[2017-08-23 08:04] LABS: BLOOD UREA NITROGEN 87 MG/DL (7-18); GLOMERULAR FILTRATION RATE 10 ML/MIN (>89)
[2017-08-23 08:05] LABS: ALKALINE PHOSPHATASE 104 U/L (45-117); ALT (GPT) 55 U/L (10-53); ANION GAP 13 MEQ/L (5-15); AST (GOT) 36 U/L (15-37); BICARBONATE 23.8 MEQ/L (21.0-32.0); CHLORIDE 99 MEQ/L (98-107); MAGNESIUM 2.2 MG/DL (1.5-2.5); SODIUM (NA) 136 MEQ/L (136-145); TOTAL BILIRUBIN ADULT 0.5 MG/DL (0.2-1.0)
[2017-08-23 08:44] LABS: HEMATOCRIT 29.6 % (35.0-46.0); MEAN CELL VOLUME 95.2 FL (80.0-100.0); MEAN CORPUSCULAR HEMOGLOBIN 32.1 PG (27.0-34.0); MEAN CORPUSCULAR HGB CONC 33.8 % (32.0-36.0); PLATELET COUNT 282 TH/MM3 (150-450); RED BLOOD COUNT 3.11 MIL/MM3 (4.00-5.30); RED CELL DISTRIBUTION WIDTH 17.3 % (11.6-17.2); REVIEW FLAG FINAL; WHITE BLOOD COUNT 17.3 TH/MM3 (4.0-11.0)
[2017-08-23 08:54] LABS: APTT (PATIENT) 26.2 SEC (24.3-30.1); INTERNATIONAL NORMALIZED RATIO 1.1 RATIO
[2017-08-23] MEDS: SODIUM CHLORIDE 0.9% FLUSH 10 ML FLUSH IV FLUSH SCH ×3 (09:00→20:05)
[2017-08-23] MEDS: GABAPENTIN 300 MG CAP PO SCH ×2 (09:00→20:04)
[2017-08-23] MEDS: POLYETHYLENE GLYCOL 17 GM PKG NG SCH ×2 (09:00→21:00)
[2017-08-23] MEDS: LANSOPRAZOLE SOLUTAB 30 MG TAB NG SCH (09:00)
[2017-08-23] MEDS: SENNOSIDES SYRUP 8.8 MG/5 ML CUP NG SCH ×2 (09:00→21:00)
[2017-08-23] MEDS: DOCUSATE SODIUM 100 MG/10 ML UDC PO SCH ×2 (09:00→21:00)
[2017-08-23 09:09] LABS: BACTERIA, URINE RARE /hpf; BLOOD, URINE MOD (NEG); COMMENT (UR) CATH-CULTURE IND; CULTURE IF INDICATED CATH CULTURE IND; GLUCOSE,URINE NEG (NEG); KETONE, URINE NEG (NEG); MUCUS URINE FEW /lpf (OCC); NITRITE,URINE NEG (NEG); PH, URINE 5.5 (5.0-8.5); SQUAMOUS EPITHELIAL CELL URINE <1 /hpf (0-5); URINE COLOR LIGHT-YELLOW (YELLW/STRAW)
[2017-08-23] MEDS: HEPARIN-D5W 25,000 U/250 ML 250 ML IV PRN ×2 (09:16→21:58)
[2017-08-23] MEDS: GENTAMICIN SULFATE (DIALYSIS USE ONLY) 20 MG/2 ML VIAL OTHER PRN (11:15)
[2017-08-23] MEDS: SODIUM CHLOR 0.9% 1000 ML INJ 1,000 ML OTHER PRN (11:15)
[2017-08-23] MEDS: HEPARIN SODIUM - IV 10,000 UNITS/10 ML VIAL PRN (11:15)
--- NOTE | 2017-08-23 11:23 | HHI.NPPN ---
Subjective Renal Failure: Acute Interval History Vascath placed yesterday. Dialyzed yesterday with 2 liters fluid removal. Seen during bedside dialysis today. She remains on vent, 50% FiO2. Non oliguric. (Yanely Lipscomb) Review of Systems General General Remarks unable to evaluate (Yanely Lipscomb) Objective Data Data Vital Signs Date Time Temp Pulse Resp B/P (MAP) Pulse Ox O2 Delivery O2 Flow Rate FiO2 08/23/17 10:00 114 08/23/17 08:00 60 08/23/17 08:00 112 08/23/17 08:00 99.9 112 17 113/59 (77) 95 08/23/17 07:53 97 50 08/23/17 07:00 95 Mechanical Ventilator 60 08/23/17 06:00 105 08/23/17 04:03 95 60 08/23/17 04:00 99.3 102 17 141/67 (91) 96 08/23/17 04:00 50 08/23/17 04:00 102 08/23/17 02:00 105 08/23/17 01:04 96 60 08/23/17 00:00 101.0 119 20 109/69 (82) 98 08/23/17 00:00 112 08/23/17 00:00 50 08/22/17 22:13 96 60 08/22/17 22:00 122 08/22/17 20:00 120 08/22/17 20:00 50 08/22/17 20:00 101.0 119 20 109/69 (82) 98 08/22/17 19:25 95 60 08/22/17 19:00 98 Mechanical Ventilator 40 08/22/17 18:00 121 08/22/17 16:00 98.8 96 15 135/63 (87) 96 08/22/17 16:00 50 08/22/17 16:00 108 08/22/17 15:47 95 50 08/22/17 14:00 104 08/22/17 12:00 100 08/22/17 12:00 60 08/22/17 12:00 98.8 100 15 127/57 (80) 99 (Yanely Lipscomb) -: 08/23/17 0825 08/23/17 0450 Microbiology 08/23/17 Aerobic Blood Culture, Received Pending 08/23/17 Anaerobic Blood Culture, Received Pending 08/23/17 Aerobic Blood Culture, Received Pending 08/23/17 Anaerobic Blood Culture, Received Pending 08/23/17 Gram Stain, Received Pending 08/23/17 Sputum Culture, Received Pending 08/23/17 Urine Culture, Received Pending Imaging Last 72 hours Impressions Chest X-Ray 08/23/17 0000 Signed Impressions: Service Date/Time: Wednesday, August 23, 2017 01:34 - CONCLUSION: 1. Support apparatus in satisfactory position. Bilateral patchy airspace disease. No significant effusion. Jarrett Keenan MD Chest X-Ray 08/22/17 1153 Signed Impressions: Service Date/Time: August 12:09 - CONCLUSION: 1. Slight improvement in the bilateral pulmonary infiltrates. 2. Interval placement of a temporary dialysis catheter on the left. No pneumothorax. Michelet Moore Jr., MD Tubes & Lines: Vas-Cath, Dee Tubes & Lines Comment fentanyl, versed, heparin Drip Comment propofol, fentanyl, bumex (Yanely Lipscomb) Physical Exam General Appearance: Well Developed, Well Nourished, Comfortable Appearance Remarks intubated, unresponsive (Yanely Lipscomb) Throat Throat Exam: Oral Mucosa [place] & Moist (Yanely Lipscomb) Pulmonary Resp Exam: Clear Bilaterally, Breath Sounds Equal, Decreased Bases (Yanely Lipscomb) Cardiology CV Exam: Regular, Normal Sinus Rhythm, Good Perfusion (Yanely Lipscomb) Gastrointestinal/Abdomen GI Exam: Soft, Non-Tender, Bowel Sounds Present (Yanely Lipscomb) Musculoskeletal MS Exam: Joints Intact, Normal Tone, Unable to Ambulate (Yanely Lipscomb) Integumentary Skin Exam: Warm, Dry, Intact Skin Remarks left elbow with sutures (Yanely Lipscomb) Extremeties Extremities Exam: Pedal Pulses Palpable, Moderate Edema, Pitting Edema Extremeties Remarks right arm edematous (Yanely LipscombP) Neurologic Neuro Exam: Unresponsive, Sedated (Yanely Lipscomb) VTE Prophylaxis Device: SCDs Meds: Heparin (Yanely Lipscomb) Assessment/Plan Assessment Summary: ROLAND/Acute Renal Failure, Acute Tubular Necrosis Problem List: (1) Acute renal failure ICD Codes: N17.9 - Acute kidney failure, unspecified Plan: She has normal renal function at baseline Suspected ATN from sepsis and renal hypoperfusion due to hypotension vancomycin induced nephrotoxicity is also a consideration Low complement levels noted, HENRIQUE in process, hepatitis panel was negative S/p vascath placement, HD inititated 08/22 (2L UF) Seen during dialysis today on a 3K, 310 BFR, goal 3L Continue HD MWF and prn Fluid volume status has improvedk, adjust UF as needed She is making urine Follow renal function, await renal recovery On calcium acetate with tube feeding for hyperphosphatemia Obtain daily labs (2) Joint infection ICD Codes: M00.9 - Pyogenic arthritis, unspecified Status: Acute Plan: ID is following s/p I&D on 08/07 On cefepime only; clindamycin and levaquin were stopped She is febrile and tachycardic today (3) Anemia ICD Codes: D64.9 - Anemia, unspecified Plan: hb improved s/p transfusion of 2 units 08/21 anticoagulation has been started (4) DVT (deep venous thrombosis) ICD Codes: I82.409 - Acute embolism and thrombosis of unspecified deep veins of unspecified lower extremity Plan: extensive right arm DVT on Heparin gtt (Yanely Lipscomb) Plan patient was seen and examined. Her BP dropped after dialysis, 3 liters removed in dialysis. She is now on Zosyn and Zyvox. Monitor urine output. Dialysis prn. May need dialysis on Saturday. (Jaime Moya MD) Yanely Lipscomb Aug 23, 2017 11:23 Jaime Moya MD Aug 23, 2017 16:38
[2017-08-23 11:53] LABS: ANA SCREEN NEG (NEG)
[2017-08-23] MEDS: ACETAMINOPHEN 650 MG/20.3 ML UDC OG-TUBE PRN ×2 (12:15→22:17)
[2017-08-23] MEDS ORDERED: LEVOFLOXACIN 500 MG PREMIX INJ 100 ML IV SCH (13:00)
[2017-08-23] MEDS: guaiFENesin SOLUTION 200 MG/10 ML CUP OG-TUBE SCH ×2 (14:00→21:53)
--- NOTE | 2017-08-23 14:06 | HHI.IDPN ---
Subjective Subjective Remarks pt developped fever up to 101 On HD Large amount of secretions remains on vent, PEEP 10, FiO2 55% diarrhea, c.diff negative adequate UOP Antibiotics clindamycin Allergies: Coded Allergies: No Known Allergies (Unverified , 08/07/17) Objective . Vital Signs Date Time Temp Pulse Resp B/P (MAP) Pulse Ox O2 Delivery O2 Flow Rate FiO2 08/23/17 13:43 93 50 08/23/17 12:00 60 08/23/17 12:00 118 08/23/17 12:00 101.5 118 15 119/57 (77) 94 08/23/17 10:00 114 08/23/17 08:00 60 08/23/17 08:00 112 08/23/17 08:00 99.9 112 17 113/59 (77) 95 08/23/17 07:53 97 50 08/23/17 07:00 95 Mechanical Ventilator 60 08/23/17 06:00 105 08/23/17 04:03 95 60 08/23/17 04:00 99.3 102 17 141/67 (91) 96 08/23/17 04:00 50 08/23/17 04:00 102 08/23/17 02:00 105 08/23/17 01:04 96 60 08/23/17 00:00 101.0 119 20 109/69 (82) 98 08/23/17 00:00 112 08/23/17 00:00 50 08/22/17 22:13 96 60 08/22/17 22:00 122 08/22/17 20:00 120 08/22/17 20:00 50 08/22/17 20:00 101.0 119 20 109/69 (82) 98 08/22/17 19:25 95 60 08/22/17 19:00 98 Mechanical Ventilator 40 08/22/17 18:00 121 08/22/17 16:00 98.8 96 15 135/63 (87) 96 08/22/17 16:00 50 08/22/17 16:00 108 08/22/17 15:47 95 50 08/23/17 08/23/17 08/24/17 15:00 23:00 07:00 Output Total 3000 ml Balance -3000 ml Hemodialysis 3000 ml . Laboratory Tests Test 08/21/17 20:45 08/22/17 05:30 08/23/17 04:50 08/23/17 08:25 Hemoglobin 9.4 GM/DL 9.5 GM/DL 9.9 GM/DL 10.0 GM/DL Hematocrit 28.3 % 28.0 % 29.2 % 29.6 % White Blood Count 15.8 TH/MM3 16.7 TH/MM3 17.3 TH/MM3 Red Blood Count 2.93 MIL/MM3 3.07 MIL/MM3 3.11 MIL/MM3 Mean Corpuscular Volume 95.5 FL 95.3 FL 95.2 FL Mean Corpuscular Hemoglobin 32.4 PG 32.3 PG 32.1 PG Mean Corpuscular Hemoglobin Concent 33.9 % 33.8 % 33.8 % Red Cell Distribution Width 17.3 % 17.8 % 17.3 % Platelet Count 301 TH/MM3 273 TH/MM3 282 TH/MM3 Mean Platelet Volume 8.5 FL 8.9 FL 8.6 FL Neutrophils (%) (Auto) 87.6 % Lymphocytes (%) (Auto) 2.4 % Monocytes (%) (Auto) 6.6 % Eosinophils (%) (Auto) 3.1 % Basophils (%) (Auto) 0.3 % Neutrophils # (Auto) 14.6 TH/MM3 Lymphocytes # (Auto) 0.4 TH/MM3 Monocytes # (Auto) 1.1 TH/MM3 Eosinophils # (Auto) 0.5 TH/MM3 Basophils # (Auto) 0.1 TH/MM3 CBC Comment AUTO DIFF Differential Total Cells Counted 100 Neutrophils % (Manual) 64 % Band Neutrophils % 17 % Lymphocytes % 2 % Monocytes % 5 % Eosinophils % 2 % Neutrophils # (Manual) 15.2 TH/MM3 Metamyelocytes 3 % Myelocytes 7 % Differential Comment FINAL DIFF MANUAL Platelet Estimate NORMAL Platelet Morphology Comment ENLARGED Laboratory Tests Test 08/22/17 05:30 08/23/17 04:50 Blood Urea Nitrogen 117 MG/DL 87 MG/DL Creatinine 5.49 MG/DL 4.67 MG/DL Random Glucose 137 MG/DL 113 MG/DL Calcium Level 8.3 MG/DL 8.8 MG/DL Phosphorus Level 7.8 MG/DL 6.1 MG/DL Magnesium Level 2.3 MG/DL 2.2 MG/DL Sodium Level 139 MEQ/L 136 MEQ/L Potassium Level 4.3 MEQ/L 4.0 MEQ/L Chloride Level 104 MEQ/L 99 MEQ/L Carbon Dioxide Level 21.3 MEQ/L 23.8 MEQ/L Anion Gap 14 MEQ/L 13 MEQ/L Estimat Glomerular Filtration Rate 8 ML/MIN 10 ML/MIN Total Protein 5.9 GM/DL Albumin 2.0 GM/DL Alkaline Phosphatase 104 U/L Aspartate Amino Transf (AST/SGOT) 36 U/L Alanine Aminotransferase (ALT/SGPT) 55 U/L Total Bilirubin 0.5 MG/DL Microbiology Date/Time Source Procedure Growth Status 08/23/17 09:11 Blood Peripheral Aerobic Blood Culture Pending Received 08/23/17 09:11 Blood Peripheral Anaerobic Blood Culture Pending Received 08/23/17 09:05 Blood Peripheral Aerobic Blood Culture Pending Received 08/23/17 09:05 Blood Peripheral Anaerobic Blood Culture Pending Received 08/23/17 08:25 Sputum Endotracheal Gram Stain Pending Received 08/23/17 08:25 Sputum Endotracheal Sputum Culture Pending Received 08/23/17 08:25 Urine Catheterized Urine Urine Culture Pending Received Imaging Last Impressions Chest X-Ray 08/23/17 0000 Signed Impressions: Service Date/Time: Wednesday, August 23, 2017 01:34 - CONCLUSION: 1. Support apparatus in satisfactory position. Bilateral patchy airspace disease. No significant effusion. Jarrett Keenan MD Abdomen/Pelvis CT 08/20/17 0000 Signed Impressions: Service Date/Time: Sunday, August 20, 2017 17:12 - CONCLUSION: 1. No evidence of discrete renal mass however there is decreased sensitivity without the use of contrast. 2. Minimal left perinephric stranding or fluid. 3. No evidence of hydronephrosis, nephrolithiasis or retroperitoneal hematoma. 4. Status post cholecystectomy. 5. Extensive lung infiltration. Mitesh Rojas MD Renal Ultrasound 08/19/17 0000 Signed Impressions: Service Date/Time: Saturday, August 19, 2017 13:50 - CONCLUSION: 1. Mildly increased renal cortical echogenicity consistent with medical renal disease. 2. Questionable minimally hyperechoic solid mass in the mid left kidney measuring 1.2 x 1.4 1.0 cm. Further evaluation may be performed with CT or MRI renal mass protocol on an outpatient basis. Jovi Loaiza MD Upper Extremity Ultrasound 08/16/17 0000 Signed Impressions: Service Date/Time: Wednesday, August 16, 2017 13:39 - CONCLUSION: Extensive right upper extremity DVT Cleve Barnett MD Chest CT 08/10/17 0000 Signed Impressions: Service Date/Time: Thursday, August 10, 2017 17:36 - CONCLUSION: 1. Upper lobe predominant central emphysema with upper lobe predominant diffuse interstitial and groundglass opacities. Differential considerations include developing ARDS, atypical infection, pulmonary edema, sarcoidosis, and drug induced lung disease amongst other etiologies. 2. Trace right pleural effusion. Jovi Loaiza MD Elbow X-Ray 08/07/17 0000 Signed Impressions: Service Date/Time: Monday, August 07, 2017 13:12 - CONCLUSION: Joint effusion, no fracture Naveed Sage MD FACR Elbow MRI 08/07/17 0000 Signed Impressions: Service Date/Time: Monday, August 07, 2017 14:11 - CONCLUSION: Presumed inflammatory process mainly involving the brachialis. The joint is suspected to be infected as well. There is no osteomyelitis as yet. Neurovascular bundle is displaced medially there are brachial bifurcation findings have been discussed with Latosha FRANCOIS on today's date. Naveed Sage MD FACR Physical Exam CONSTITUTIONAL/GENERAL: This is an adequately nourished patient, + increased resp effort TUBES/LINES/DRAINS: SKIN: No jaundice, rashes, or lesions. CARDIOVASCULAR: Regular rate and rhythm without murmurs, gallops, or rubs. RESPIRATORY/CHEST: Symmetric, tachypneic decreased BS b/l, + rhonchi GASTROINTESTINAL: Abdomen soft, non-tender, mildly distended. MUSCULOSKELETAL: Extremities without clubbing, cyanosis, Prominent RUE with persistant prominent non pitting edema. No change LUE with very clean healing incision w/o erythema or edema + increasing edema, no erythema : [place] with somewhat cloudy urine NEUROLOGICAL: sedated, PSYCHIATRIC: unable to assess Assessment & Plan Remarks Assessment and Plan Septic arthitis L elbow with deep abscess L brachialis muscle, MRSA sp I+D - healed, no e/o ongoing infx Acute VDRF - PNA vs non ifectious pneumonitis -not favoring PNA, more likely chronic intersitial lung disaes with advanced chronic resp failure interstitial and groundglass opacities ? atypical PNA Severe leukocytosis RA, on Humira RUE DVT Low grade fever ? from DVT - improved Low compliment levels - pt with underlying CTD Worsening AFR vancomycin stopped - no eosinophils ? UTI - UA abn, clx negative, but CT with stranding Pt is critically ill Hemoptysis, sp BAL, clx negative Worsening creatinine, going on HD New fever and worsening leukocytos PNA, new ? - icreasing secretions Rec's: - fu blood, sputum and urine clx - start zosyn, zyvox - avoid nephotoxic meds dc clindamycin Dw Dr Atif Fabian,Marilyn Clarke MD Aug 23, 2017 14:06
[2017-08-23] MEDS: LINEZOLID 600 MG PREMIX 300 ML IV SCH (15:08)
[2017-08-23] MEDS ORDERED: ALBUMIN 5% INJ 500 ML IV ONE (15:15)
[2017-08-23] MEDS ORDERED: ALBUMIN 5% INJ 250 ML IV ONE (15:27)
[2017-08-23] MEDS ORDERED: ALBUMIN 25% INJ 100 ML IV ONE (15:30)
[2017-08-23] MEDS ORDERED: TERBUTALINE INJ 1 MG/ML AMP SQ PRN (15:30)
[2017-08-23 16:22] LABS: APTT (PATIENT) 66.1 SEC (24.3-30.1)
[2017-08-23] MEDS ORDERED: PHENYLEPHRINE INJ 160 MG in DEXTROSE 5% IN WATE 500 ML INJ 484 ML IV PRN ×2 (17:00)
[2017-08-23] MEDS ORDERED: SODIUM CHLORID 0.9% 500 ML INJ 500 ML IV ONE (17:15)
[2017-08-23] MEDS ORDERED: SODIUM CHLOR 0.9% 250 ML INJ 250 ML IV ONE (17:15)
--- NOTE | 2017-08-23 17:25 | HHI.PR ---
Subjective Remarks Remains Intubated and on Vent support , FIO2 at 40 %.On A/C rate 16 Remains .Sedated. but wakes up to commands. On Dialysis now. CXR shows no change. Objective Vital Signs Date Time Temp Pulse Resp B/P (MAP) Pulse Ox O2 Delivery O2 Flow Rate FiO2 08/23/17 16:00 60 08/23/17 16:00 100.9 112 15 101/57 (72) 98 08/23/17 16:00 112 08/23/17 15:55 98 45 08/23/17 14:00 115 08/23/17 13:43 93 50 08/23/17 12:00 60 08/23/17 12:00 118 08/23/17 12:00 101.5 118 15 119/57 (77) 94 08/23/17 10:00 114 08/23/17 08:00 60 08/23/17 08:00 112 08/23/17 08:00 99.9 112 17 113/59 (77) 95 08/23/17 07:53 97 50 08/23/17 07:00 95 Mechanical Ventilator 60 08/23/17 06:00 105 08/23/17 04:03 95 60 08/23/17 04:00 99.3 102 17 141/67 (91) 96 08/23/17 04:00 50 08/23/17 04:00 102 08/23/17 02:00 105 08/23/17 01:04 96 60 08/23/17 00:00 101.0 119 20 109/69 (82) 98 08/23/17 00:00 112 08/23/17 00:00 50 08/22/17 22:13 96 60 08/22/17 22:00 122 08/22/17 20:00 120 08/22/17 20:00 50 08/22/17 20:00 101.0 119 20 109/69 (82) 98 08/22/17 19:25 95 60 08/22/17 19:00 98 Mechanical Ventilator 40 08/22/17 18:00 121 I/O 08/22/17 08/22/17 08/22/17 08/23/17 08/23/17 08/23/17 07:00 15:00 23:00 07:00 15:00 23:00 Intake Total 953 ml 104 ml 973 ml 723 ml Output Total 1425 ml 3300 ml 600 ml 3000 ml Balance -472 ml 104 ml -2327 ml 123 ml -3000 ml IV Total 410 ml 104 ml 144 ml 100 ml Tube Feeding 543 ml 649 ml 503 ml Other 180 ml 120 ml Output Urine Total 1425 ml 1200 ml 300 ml Stool Total 100 ml 300 ml Hemodialysis 2000 ml 3000 ml # Bowel Movements 2 Result Diagram: 08/23/17 0825 08/23/17 0450 Objective Remarks GENERAL: This is a averagely built middle-aged white female who is intubated HEENT: Head normocephalic. Pupils reactive . Nasal mucosa clear.No thyroid enlargement or lymphadenopathy. CHEST: Decreased excursions. Expiratory wheezes scattered throughout both lung cabrera.Crackles at Bases HEART: The heart sounds are irregular, S1-S2. No definite murmur. No S3. ABDOMEN: The abdomen is protuberant and soft without masses or organomegaly or tenderness. EXTREMITIES: Mild joint deformities. There is mild peripheral edema. Peripheral pulses are felt. Sedated. . SKIN: No lesions observed. Assessment and Plan Assessment and Plan IMPRESSION 1. COPD with emphysema and chronic bronchitis. 2. Cellulitis and left elbow joint infection. 3. Nicotine dependency. 4. History of rheumatoid arthritis and interstitial lung disease. 5. Fibromyalgia. 6. ARDS Plan : 1. Cont Nebs qid , duoneb. 2. Vent support and Wean FIO 2 to 40 % 3. Cont Antibiotics.Per ID 4. BMP , CXR CBC in am. 5. Cont Heparin S/Q 6. NG with feeds at 50 CC, jevity 7. Solumedrol 40 mg IV q12h 8. Continue diuretics Perla Gonzalez MD Aug 23, 2017 17:25
[2017-08-23] MEDS: PIPERACIL-TAZO 2.25 GM PREMIX 50 ML IV SCH ×2 (17:35→21:53)
[2017-08-23 17:54] LABS: MYELOPEROXIDASE LESS THAN 1.0 AI (<1.0); PROTEINASE-3 LESS THAN 1.0 AI (<1.0)
[2017-08-23 22:50] LABS: APTT (PATIENT) 40.2 SEC (24.3-30.1)
[2017-08-24] VITALS (18 sets, daily range): BP systolic 91–115; BP diastolic 50–61; PULSE 91–120; RESP 14–18; TEMP 98.6–102.2; O2SAT 93–100
[2017-08-24] MEDS: RESP: ALBUTEROL 2.5 MG/IPRATROPIUM 0.5 MG NEB (SCH) NEB ×6 (00:16→20:10)
[2017-08-24] MEDS: RESP: SODIUM CHLORIDE 3% 4 ML NEB NEB SCH ×6 (00:17→20:10)
[2017-08-24] MEDS: PIPERACIL-TAZO 2.25 GM PREMIX 50 ML IV SCH ×4 (02:01→20:09)
[2017-08-24] MEDS: LINEZOLID 600 MG PREMIX 300 ML IV SCH ×2 (03:16→15:15)
[2017-08-24] MEDS: PROPOFOL 1000 MG/100 ML IV PRN (03:16)
[2017-08-24] MEDS ORDERED: ALBUMIN 25% INJ 50 ML IV ONE (03:30)
[2017-08-24 04:03] LABS: AUTOMATED NEUTROPHIL # 16.2 TH/MM3 (1.8-7.7); BASOPHIL # 0.1 TH/MM3 (0-0.2); BASOPHIL % 0.5 % (0.0-2.0); EOSINOPHIL # 0.4 TH/MM3 (0-0.4); EOSINOPHIL % 2.1 % (0.0-4.0); HEMATOCRIT 27.4 % (35.0-46.0); LYMPHOCYTE # 0.5 TH/MM3 (1.0-4.8); MEAN CELL VOLUME 96.5 FL (80.0-100.0); MEAN CORPUSCULAR HEMOGLOBIN 31.6 PG (27.0-34.0); MEAN CORPUSCULAR HGB CONC 32.8 % (32.0-36.0); MONO % 4.1 % (0.0-8.0); NEUT % 90.3 % (16.0-70.0); PLATELET COUNT 246 TH/MM3 (150-450); RED BLOOD COUNT 2.84 MIL/MM3 (4.00-5.30); RED CELL DISTRIBUTION WIDTH 17.3 % (11.6-17.2); WHITE BLOOD COUNT 17.9 TH/MM3 (4.0-11.0)
[2017-08-24 04:09] LABS: HEMO FLAGS AUTO DIFF
[2017-08-24 04:35] LABS: APTT (PATIENT) 61.8 SEC (24.3-30.1)
[2017-08-24 04:43] LABS: POTASSIUM 4.6 MEQ/L (3.5-5.1)
[2017-08-24] MEDS: guaiFENesin SOLUTION 200 MG/10 ML CUP OG-TUBE SCH ×3 (05:15→21:46)
[2017-08-24] MEDS: ARTIFICIAL TEARS OPTH SOLN 15 ML BTL EACH EYE SCH ×3 (05:15→21:45)
[2017-08-24] MEDS: METOCLOPRAMIDE HCL 10 MG/2 ML VIAL IV PUSH SCH ×3 (05:15→21:45)
[2017-08-24] MEDS: INSULIN NovoLIN REGULAR SUPPLEMENTAL SCALE SQ SCH ×4 (05:45→23:59)
[2017-08-24 06:27] LABS: BANDS 8 % (0-6); BASOPHILS 1 % (0-2); DOHLE BODIES PRESENT (NONE SEEN); EOSINOPHILS 3 % (0-4); METAMYELOCYTES 3 % (0-1); MYELOCYTES 3 % (0-0); NEUTROPHIL # MANUAL DIFF 15.9 TH/MM3 (1.8-7.7); PLATELET ESTIMATE SMEAR NORMAL (NORMAL); PLATELET MORPHOLOGY NORMAL (NORMAL); POLYS (SEG NEUTROPHILS) 74 % (16-70); PROMYELOCYTES 1 % (0-0); SCAN/DIFF FINAL DIFF MANUAL; WBC DIFF SAMPLE 100
[2017-08-24] MEDS: CHLORHEXIDINE 0.12% (ORAL KIT) 15 ML CUP MT SCH ×2 (07:48→20:09)
[2017-08-24] MEDS: fentaNYL DRIP 250 ML IV PRN ×2 (07:49→19:51)
[2017-08-24] MEDS: methylPREDNISolone SOD SUCC 40 MG/1 ML VIAL IV PUSH SCH ×2 (08:23→20:10)
[2017-08-24] MEDS: DOCUSATE SODIUM 100 MG/10 ML UDC PO SCH ×2 (08:24→20:08)
[2017-08-24] MEDS: SENNOSIDES SYRUP 8.8 MG/5 ML CUP NG SCH ×2 (08:24→20:07)
[2017-08-24] MEDS: SODIUM CHLORIDE 0.9% FLUSH 10 ML FLUSH IV FLUSH SCH ×3 (08:24→20:09)
[2017-08-24] MEDS: POLYETHYLENE GLYCOL 17 GM PKG NG SCH ×2 (08:24→20:07)
[2017-08-24] MEDS: buPROPion HCL 100 MG SUSTAINED RELEASE TAB PO SCH ×2 (08:25→20:07)
[2017-08-24] MEDS: LANSOPRAZOLE SOLUTAB 30 MG TAB NG SCH (09:09)
[2017-08-24] MEDS: FOLIC ACID 1 MG TAB PO SCH (09:09)
[2017-08-24] MEDS: CALCIUM ACETATE 667 MG CAP PO SCH ×3 (09:09→17:14)
[2017-08-24] MEDS: CHOLECALCIFEROL (VIT D3) 1000 UNIT TAB PO SCH (09:09)
[2017-08-24] MEDS: LEVOTHYROXINE SODIUM 50 MCG TAB PO SCH (09:09)
[2017-08-24] MEDS: FLUoxetine HCL 20 MG CAP PO SCH (09:09)
[2017-08-24] MEDS: GABAPENTIN 300 MG CAP PO SCH ×2 (09:09→20:10)
[2017-08-24] MEDS: DOXEPIN HCL 50 MG CAP PO SCH ×2 (09:09→20:10)
[2017-08-24] MEDS: RESP: BUDESONIDE 0.5 MG/2 ML NEB NEB SCH ×2 (09:17→20:10)
--- NOTE | 2017-08-24 12:19 | HHI.CCPN ---
Subjective Remarks/Hospital Course 57-year-old white female with a history of a longstanding COPD and rheumatoid arthritis and fibromyalgia, was admitted with pain and swelling of the left elbow. The patient apparently was out of town and tripped and fell on her elbow injuring the elbow and requiring sutures for a laceration. Subsequently she developed swelling and redness and cellulitis and the patient was then brought to the ER where she was noted to have cellulitis with an abscessed area and now was seen by orthopedics and placed on antibiotic coverage for soft tissue infection with a joint abscess. She also was hypoxic upon admission and has been placed on oxygen via nasal cannula at 3 liters and she does have a cough and her chest x-ray that was done showed acute pulmonary infiltrates. Today she was in severe respiratory distress on the [facility] floor and the rapid response was called. She was transferred immediately to ICU and was intubated shortly after arrival due to severe respiratory distress and hypoxemia. 08/15: Gas exchange impaired, diffuse infiltrates persist. 08/16: Gas exchange remains markedly impaired. We are in for a long haul on the ventilator. 08/17: Gas exchange remains markedly impaired, PEEP 10 elevated FiO2. Diffuse interstitial infiltrates persist (On home oxygen). Extensive right arm and shoulder region DVT. 08/18: Converted to APRV for persistent hypoxemia. Leukocytosis persists. 08/19: A-aO2 gradient gradually improving. Family has reasonable concerns about the length of time she will require mechanical ventilation. They are at odds with each other about the terms defined in her advanced directive. I have asked them to bring the document to us. At this point the patient is gradually improving and will undergo spontaneous breathing trials within a day or two. 08/19: Tmax 100.2. Switched over to PRVC ventilation today. Will check ABG this afternoon. Not tolerating tube feeds currently at 20 cc an hour. 2 BMs yesterday documented. Arousable and follows commands on sedation vacation. 08/20: Yesterday, brought for hemoptysis. Suction trauma noted in the left main bronchus. Status post cold saline/sodium bicarbonate. Hemoglobin dropped from 9.8-7.1. No obvious source of bleeding. Denies abdominal pain. CT abdomen/pelvis pending. Rule out retroperitoneal bleed. Tolerating tube feeding. Hemolysis workup in process. Also noted, creatinine currently elevated at 3.3. Urine eosinophils were yesterday not performed. RN notified. Will do stat. Renal ultrasound revealed medical renal disease, left renal mass. 08/21: Afebrile. Creatinine is increased to 4.5. Urine output has increased however. Currently on PSV trial per pulmonology. CT abdomen/post revealed no retroperitoneal hematoma. Being transfused 2 units PRBCs today. 08/22: Resting comfortably in bed in no acute distress. Arousable falls commands. FiO2 at 50%. PEEP 10- 8. Will not attempt PSV trials today. Will need hemodialysis. 08/23: Increased secretions noted. Patient will be pancultured. Status post hemodialysis yesterday. Tolerating tube feeding. Positive bowel movement. Subjective 08/24: PEEP down to 8. Currently just on a fentanyl drip and appears comfortable. Hypotension overnight resolved. High residuals on tube feedings. Positive BM. Objective Vital Signs Date Time Temp Pulse Resp B/P (MAP) Pulse Ox O2 Delivery O2 Flow Rate FiO2 08/24/17 12:00 115 08/24/17 12:00 45 08/24/17 11:52 95 08/24/17 08:00 98.6 18 110/57 (74) 08/24/17 07:00 Mechanical Ventilator Intake and Output 08/24/17 08/24/17 08/25/17 08:00 16:00 00:00 Intake Total 1310 ml Output Total 550.0 ml Balance 760.0 ml Result Diagram: 08/24/17 0345 08/24/17 0345 Other Results Microbiology Date/Time Source Procedure Growth Status 08/23/17 09:11 Blood Peripheral Aerobic Blood Culture - Preliminary NO GROWTH IN 1 DAY Resulted 08/23/17 09:11 Blood Peripheral Anaerobic Blood Culture - Preliminary NO GROWTH IN 1 DAY Resulted 08/23/17 08:25 Sputum Endotracheal Gram Stain - Final Resulted 08/23/17 08:25 Sputum Endotracheal Sputum Culture Pending Resulted 08/23/17 08:25 Urine Catheterized Urine Urine Culture Pending Received 08/07/17 19:48 Wound Elbow Fungal Smear - Final NO FUNGAL ELEMENTS SEEN. Resulted 08/07/17 19:48 Wound Elbow Fungal Culture - Preliminary NO GROWTH IN 2 WEEKS Resulted Imaging Last Impressions Chest X-Ray 08/23/17 0000 Signed Impressions: Service Date/Time: Wednesday, August 23, 2017 01:34 - CONCLUSION: 1. Support apparatus in satisfactory position. Bilateral patchy airspace disease. No significant effusion. Jarrett Keenan MD Abdomen/Pelvis CT 08/20/17 0000 Signed Impressions: Service Date/Time: Sunday, August 20, 2017 17:12 - CONCLUSION: 1. No evidence of discrete renal mass however there is decreased sensitivity without the use of contrast. 2. Minimal left perinephric stranding or fluid. 3. No evidence of hydronephrosis, nephrolithiasis or retroperitoneal hematoma. 4. Status post cholecystectomy. 5. Extensive lung infiltration. Mitesh Rojas MD Renal Ultrasound 08/19/17 0000 Signed Impressions: Service Date/Time: Saturday, August 19, 2017 13:50 - CONCLUSION: 1. Mildly increased renal cortical echogenicity consistent with medical renal disease. 2. Questionable minimally hyperechoic solid mass in the mid left kidney measuring 1.2 x 1.4 1.0 cm. Further evaluation may be performed with CT or MRI renal mass protocol on an outpatient basis. Jovi Loaiza MD Upper Extremity Ultrasound 08/16/17 0000 Signed Impressions: Service Date/Time: Wednesday, August 16, 2017 13:39 - CONCLUSION: Extensive right upper extremity DVT Cleve Barnett MD Chest CT 08/10/17 0000 Signed Impressions: Service Date/Time: Thursday, August 10, 2017 17:36 - CONCLUSION: 1. Upper lobe predominant central emphysema with upper lobe predominant diffuse interstitial and groundglass opacities. Differential considerations include developing ARDS, atypical infection, pulmonary edema, sarcoidosis, and drug induced lung disease amongst other etiologies. 2. Trace right pleural effusion. Jovi Loaiza MD Elbow X-Ray 08/07/17 0000 Signed Impressions: Service Date/Time: Monday, August 07, 2017 13:12 - CONCLUSION: Joint effusion, no fracture Naveed Sage MD FACR Elbow MRI 08/07/17 0000 Signed Impressions: Service Date/Time: Monday, August 07, 2017 14:11 - CONCLUSION: Presumed inflammatory process mainly involving the brachialis. The joint is suspected to be infected as well. There is no osteomyelitis as yet. Neurovascular bundle is displaced medially there are brachial bifurcation findings have been discussed with Latosha FRANCOIS on today's date. Naveed Sage MD FACR Objective Remarks GENERAL: 57-year-old female, critically ill currently orotracheally intubated SKIN: Warm and dry. No rash HEAD: Normocephalic. EYES: No scleral icterus. No injection or drainage. NECK: Supple, trachea midline. Orally intubated. CARDIOVASCULAR: RRR. S1, S2. No S4. Without murmur RESPIRATORY: Coarse crackles appreciated throughout lung cabrera. No wheezing. GASTROINTESTINAL: Abdomen soft, non-tender, nondistended. BS active. MUSCULOSKELETAL: Status post excision and drainage of left elbow. Incision clean, dry. Right upper extremity edema 2+ NEURO EXAM: Moves 4 limbs. WENDY. Opens eyes. Follows simple commands Procedures Irrigation and debridement of left elbow A/P Assessment and Plan Neuro/Psych: Fibromyalgia Depression/anxiety Patient is currently on fentanyl drip at 100 g for from an for analgesia while intubated Goal of RA SS -2 - 0 Daily sedation vacation Continue doxepin 50 mill grams twice a day, fluoxetine 120 mg daily and bupropion 200 mg by mouth twice a day for depression/anxiety Continue gabapentin 300 mg morning and decreased from 600 mg to 300mg at night CV: Patient is currently hemodynamic stable and not requiring vasopressors and/or antihypertensives Resp: Acute hypoxemic respiratory failure secondary due to ILD/COPD Hemoptysis PC/AC rate 14. Inspiratory pressure 16. PEEP 8. Inspiratory time 2.0. FiO2 45% Ventilator bundle Albuterol/ipratropium aerosols every 4 hours with albuterol aerosols every 2 hours when necessary dyspnea Add budesonide aerosols 0.5 mg/2 mL one inhalation twice a day And 3% hypertonic saline aerosols every 4 hours for thinning secretions Already guaifenesin 400 every 8 hours Methylprednisolone 40 mg IV 2 times a day will be continued Dr. Lisa Ibarra - pulmonology is following Chest x-ray 08/20 revealed pulmonary fibrosis as interstitial lung disease without focal pneumothorax. Repeat after bronchoscopy revealed pulmonary edema? Status post bronchoscopy 08/20 for hemoptysis. There was some suction trauma with cessation of bleeding with cold saline/sodium bicarbonate GI: Goals Nepro 50 cc an hour Lansoprazole 30 cc daily GI prophylaxis Docusate sodium 200 mg twice a day/senna liquid 8.6 mg twice a day for bowel regimen and propylene glycol 17 g twice a day Currently on metoclopramide 5 mg IV every 8 hours for prokinetic bowel activity : Dee catheter has been placed for accurate I's and O's in a critically ill patient Endo: Hypothyroidism Continue levothyroxine 50 mcg daily Sliding-scale insulin with Accu-Cheks to maintain euglycemia/medium regimen of Novulin R while on steroids Rheum: RA Currently holding methotrexate 2.5 mg weekly. Likely resume when clinically indicated I discussed w/ Dr. Moya. . Would not resume at the present time. Awaiting records from [facility] regarding underlying rheumatological disease. Rheumatoid factor negative here. Complements both low. Possible post infectious disease Continue folic acid 1 mg by mouth daily Renal: Acute kidney injury Left renal mass Vancomycin discontinued per infectious disease Negative urine eosinophil/creatinine and sodium reveal intrinsic renal disease Hemodialysis yesterday per nephrology Gated C3 and C4 both are low. Rheumatoid factor negative. Renal ultrasound revealed medical renal disease with cortical thickening. Left renal mass 1.2 x 1.[address] did not reveal any evidence of mass.. This is a chronic issue with this patient according to family. Nephrology consultation. Dr. Moya Heme: Leukocytosis Macrocytic anemia Right upper extremity DVT Monitor CBC daily. Follow trends Ultrasound reveals nonocclusive thrombus right subclavian/axillary and occlusive thrombus radial/cephalic 08/20 held enoxaparin 80 mg subcutaneous twice a day in light of hemoptysis. Initiate heparin drip 08/23. 08/20 CT abdomen/pelvis ruled out retroperitoneal hematoma ID: MRSA left elbow Piperacillin/tazobactam and linezolid day #2 Vancomycin discontinued 08/19. Cefepime discontinued 08/20. Levofloxacin and clindamycin discontinued 08/23 Bronchoscopy cultures 08/19 no growth today. Blood cultures 2, urine and sputum today 08/23 FEN: Hyperphosphatemia Replace electrolytes as clinically indicated Continue calcium acetate 1334 mg by mouth 3 times a day MSK: Status post ORIF left septic elbow 07/28 - MRSA Long-term antibiotics per infectious disease Access - Right IJ CVL - Left IJ hemodialysis catheter placed 08/22. Prophylaxis - GI - lansoprazole - DVT - SCD/heparin drip Critical Care: The total critical care time was 35 minutes. Time to perform other separately billable procedures was not included in the critical care time. Justin Srivastava MD Aug 24, 2017 12:19
--- NOTE | 2017-08-24 12:40 | HHI.NPPN ---
Subjective Renal Failure: Acute Additional Remarks Intubated, awake Review of Systems General General Remarks unable to evaluate Objective Data Data 08/24/17 08/25/17 18:59 06:59 Output Total 350.0 ml Balance -350.0 ml Tube Feeding Residual Discard 350.0 ml Vital Signs Date Time Temp Pulse Resp B/P (MAP) Pulse Ox O2 Delivery O2 Flow Rate FiO2 08/24/17 12:00 115 08/24/17 12:00 45 08/24/17 11:52 95 45 08/24/17 10:00 105 08/24/17 09:18 95 45 08/24/17 08:00 98.6 102 18 110/57 (74) 95 08/24/17 08:00 102 08/24/17 08:00 45 08/24/17 07:00 92 Mechanical Ventilator 45 08/24/17 06:00 91 08/24/17 04:19 97 45 08/24/17 04:00 99.0 98 14 101/50 (67) 97 08/24/17 04:00 45 08/24/17 04:00 98 08/24/17 02:00 102 08/24/17 00:19 94 45 08/24/17 00:00 102.2 118 18 91/51 (64) 94 08/24/17 00:00 45 08/24/17 00:00 118 08/23/17 22:00 126 08/23/17 20:00 120 08/23/17 20:00 101.5 120 21 130/60 (83) 89 08/23/17 20:00 45 08/23/17 19:35 96 45 08/23/17 19:00 96 Mechanical Ventilator 45 08/23/17 18:00 110 08/23/17 16:00 60 08/23/17 16:00 100.9 112 15 101/57 (72) 98 08/23/17 16:00 112 08/23/17 15:55 98 45 08/23/17 14:00 115 08/23/17 13:43 93 50 -: 08/24/17 0345 08/24/17 0345 Tubes & Lines: Vas-Cath, Dee Tubes & Lines Comment fentanyl, versed, heparin Drip Comment propofol, fentanyl, bumex Physical Exam General Appearance: Well Developed, Well Nourished, Comfortable Throat Throat Exam: Oral Mucosa Mason Neck & Moist Pulmonary Resp Exam: Clear Bilaterally, Breath Sounds Equal, Decreased Bases Cardiology CV Exam: Regular, Normal Sinus Rhythm, Good Perfusion Gastrointestinal/Abdomen GI Exam: Soft, Non-Tender, Bowel Sounds Present Musculoskeletal MS Exam: Joints Intact, Normal Tone, Unable to Ambulate Integumentary Skin Exam: Warm, Dry, Intact Extremeties Extremities Exam: Pedal Pulses Palpable, Moderate Edema, Pitting Edema Neurologic Neuro Exam: Unresponsive, Sedated VTE Prophylaxis Device: SCDs Assessment/Plan Assessment Summary: ROLAND/Acute Renal Failure, Acute Tubular Necrosis Problem List: (1) Acute renal failure ICD Codes: N17.9 - Acute kidney failure, unspecified Plan: She has normal renal function at baseline Suspected ATN from sepsis and renal hypoperfusion due to hypotension vancomycin induced nephrotoxicity is also a consideration Low complement levels noted, HENRIQUE negative, hepatitis panel was negative S/p vascath placement, HD inititated 08/22 (2L UF) HD done yesterday with 3L UF. UOP decreased today. Hold HD for now and monitor UOP Plan next HD Saturday. Continue HD MWF and prn Fluid volume status has improved, adjust UF as needed Follow renal function, await renal recovery On calcium acetate with tube feeding for hyperphosphatemia Obtain daily labs (2) Joint infection ICD Codes: M00.9 - Pyogenic arthritis, unspecified Status: Acute Plan: ID is following s/p I&D on 08/07 On Zosyn, Zyvox; clindamycin and levaquin were stopped Fever last night (3) Anemia ICD Codes: D64.9 - Anemia, unspecified Plan: hb improved s/p transfusion of 2 units 08/21 anticoagulation has been started (4) DVT (deep venous thrombosis) ICD Codes: I82.409 - Acute embolism and thrombosis of unspecified deep veins of unspecified lower extremity Plan: extensive right arm DVT on Heparin gtt Rafael Mcdowell MD Aug 24, 2017 12:40
[2017-08-24] MEDS: HEPARIN-D5W 25,000 U/250 ML 250 ML IV PRN (14:25)
[2017-08-25] VITALS (19 sets, daily range): BP systolic 115–147; BP diastolic 57–75; PULSE 96–120; RESP 14–20; TEMP 98.2–100.4; O2SAT 92–95
[2017-08-25] MEDS: RESP: ALBUTEROL 2.5 MG/IPRATROPIUM 0.5 MG NEB (SCH) NEB ×7 (00:15→23:28)
[2017-08-25] MEDS: RESP: SODIUM CHLORIDE 3% 4 ML NEB NEB SCH ×7 (00:15→23:28)
[2017-08-25] MEDS: PIPERACIL-TAZO 2.25 GM PREMIX 50 ML IV SCH ×2 (03:34→08:36)
[2017-08-25] MEDS: LINEZOLID 600 MG PREMIX 300 ML IV SCH (04:21)
[2017-08-25] MEDS: HEPARIN-D5W 25,000 U/250 ML 250 ML IV PRN ×2 (04:23→21:00)
[2017-08-25 05:23] LABS: AUTOMATED NEUTROPHIL # 13.7 TH/MM3 (1.8-7.7); BASOPHIL # 0.1 TH/MM3 (0-0.2); BASOPHIL % 0.5 % (0.0-2.0); EOSINOPHIL # 0.1 TH/MM3 (0-0.4); EOSINOPHIL % 0.6 % (0.0-4.0); HEMATOCRIT 26.5 % (35.0-46.0); LYMPH % 4.1 % (9.0-44.0); LYMPHOCYTE # 0.6 TH/MM3 (1.0-4.8); MEAN CELL VOLUME 95.4 FL (80.0-100.0); MEAN CORPUSCULAR HEMOGLOBIN 31.9 PG (27.0-34.0); MEAN CORPUSCULAR HGB CONC 33.5 % (32.0-36.0); MONO % 3.4 % (0.0-8.0); NEUT % 91.4 % (16.0-70.0); PLATELET COUNT 253 TH/MM3 (150-450); RED BLOOD COUNT 2.77 MIL/MM3 (4.00-5.30); RED CELL DISTRIBUTION WIDTH 16.8 % (11.6-17.2)
[2017-08-25 05:30] LABS: HEMO FLAGS AUTO DIFF
[2017-08-25 05:59] LABS: BICARBONATE 26.9 MEQ/L (21.0-32.0); POTASSIUM 4.3 MEQ/L (3.5-5.1)
[2017-08-25] MEDS: ARTIFICIAL TEARS OPTH SOLN 15 ML BTL EACH EYE SCH ×3 (06:00→21:53)
[2017-08-25] MEDS: INSULIN NovoLIN REGULAR SUPPLEMENTAL SCALE SQ SCH ×3 (06:00→18:00)
--- NOTE | 2017-08-25 06:26 | RADRPT ---
EXAM DATE/TIME: 08/25/2017 04:23 [place] COMPARISON: CHEST SINGLE AP, August 23, 2017, 1:34. INDICATIONS : Respiratory failure MEDICAL HISTORY : Chronic obstructive pulmonary disease. Gastroesophageal reflux disease. Diverticulitis. IBS, Fibr omyalgia SURGICAL HISTORY : Appendectomy. Cholecystectomy. Tubal ligation. ENCOUNTER: Subsequent ACUITY: 2 weeks PAIN SCORE: Non-responsive. LOCATION: Bilateral chest FINDINGS: ET tube come NG tube, and bilateral internal jugular central lines are well placed. The heart size is normal. There is diffuse mixed interstitial and alveolar consolidation being worse in the bases. CONCLUSION: Diffuse mixed consolidation likely representing edema, diffuse infection, or ARDS. Cleve Ingram MD on August 25, 2017 at 6:24 Board Certified Radiologist. This report was verified electronically.
[2017-08-25 06:34] LABS: BANDS 2 % (0-6); CORRECTED NUCLEATED RBC 1 /100 WBC (0-0); EOSINOPHILS 1 % (0-4); METAMYELOCYTES 2 % (0-1); MYELOCYTES 3 % (0-0); NEUTROPHIL # MANUAL DIFF 13.5 TH/MM3 (1.8-7.7); POLYS (SEG NEUTROPHILS) 83 % (16-70); WBC DIFF SAMPLE 100
[2017-08-25 06:35] LABS: PLATELET ESTIMATE SMEAR NORMAL (NORMAL); PLATELET MORPHOLOGY NORMAL (NORMAL); SCAN/DIFF FINAL DIFF MANUAL
[2017-08-25] MEDS: METOCLOPRAMIDE HCL 10 MG/2 ML VIAL IV PUSH SCH ×3 (06:42→21:51)
[2017-08-25] MEDS: guaiFENesin SOLUTION 200 MG/10 ML CUP OG-TUBE SCH ×3 (06:43→21:50)
[2017-08-25 07:19] LABS: APTT (PATIENT) 88.2 SEC (24.3-30.1)
[2017-08-25] MEDS: CHLORHEXIDINE 0.12% (ORAL KIT) 15 ML CUP MT SCH ×2 (08:00→21:53)
[2017-08-25] MEDS: RESP: BUDESONIDE 0.5 MG/2 ML NEB NEB SCH ×2 (08:03→21:28)
[2017-08-25] MEDS: LEVOTHYROXINE SODIUM 50 MCG TAB PO SCH (08:35)
[2017-08-25] MEDS: FOLIC ACID 1 MG TAB PO SCH (08:35)
[2017-08-25] MEDS: DOCUSATE SODIUM 100 MG/10 ML UDC PO SCH ×2 (08:35→21:50)
[2017-08-25] MEDS: LANSOPRAZOLE SOLUTAB 30 MG TAB NG SCH (08:35)
[2017-08-25] MEDS: buPROPion HCL 100 MG SUSTAINED RELEASE TAB PO SCH ×2 (08:35→21:53)
[2017-08-25] MEDS: CHOLECALCIFEROL (VIT D3) 1000 UNIT TAB PO SCH (08:35)
[2017-08-25] MEDS: SODIUM CHLORIDE 0.9% FLUSH 10 ML FLUSH IV FLUSH SCH ×3 (08:36→21:53)
[2017-08-25] MEDS: methylPREDNISolone SOD SUCC 40 MG/1 ML VIAL IV PUSH SCH ×2 (08:36→21:50)
[2017-08-25] MEDS: POLYETHYLENE GLYCOL 17 GM PKG NG SCH ×2 (08:37→21:50)
[2017-08-25] MEDS: CALCIUM ACETATE 667 MG CAP PO SCH ×3 (08:37→18:00)
[2017-08-25] MEDS: DOXEPIN HCL 50 MG CAP PO SCH ×2 (08:37→21:53)
[2017-08-25] MEDS: SENNOSIDES SYRUP 8.8 MG/5 ML CUP NG SCH ×2 (08:37→21:53)
[2017-08-25] MEDS: FLUoxetine HCL 20 MG CAP PO SCH (08:44)
[2017-08-25] MEDS: GABAPENTIN 300 MG CAP PO SCH ×2 (08:44→21:51)
--- NOTE | 2017-08-25 09:59 | HHI.NPPN ---
Subjective Renal Failure: Acute Additional Remarks Intubated, awake Review of Systems General General Remarks unable to evaluate Objective Data Data 08/25/17 08/26/17 19:00 07:00 Intake Total 350 ml Balance 350 ml IV Total 350 ml Vital Signs Date Time Temp Pulse Resp B/P (MAP) Pulse Ox O2 Delivery O2 Flow Rate FiO2 08/25/17 08:05 92 45 08/25/17 06:00 97 08/25/17 04:27 94 40 08/25/17 04:00 98.2 99 19 115/57 (76) 93 08/25/17 04:00 45 08/25/17 04:00 99 08/25/17 02:00 98 08/25/17 01:17 95 40 08/25/17 00:00 100.0 100 14 131/66 (87) 93 08/25/17 00:00 45 08/25/17 00:00 100 08/24/17 22:12 100 40 08/24/17 22:00 103 08/24/17 20:10 100 40 08/24/17 20:00 100.4 100 14 113/61 (78) 93 08/24/17 20:00 102 08/24/17 20:00 45 08/24/17 19:00 93 Mechanical Ventilator 45 08/24/17 18:00 104 08/24/17 16:00 99.3 104 14 105/54 (71) 93 08/24/17 16:00 45 08/24/17 16:00 104 08/24/17 14:00 120 08/24/17 12:00 115 08/24/17 12:00 45 08/24/17 12:00 100.8 114 16 115/59 (77) 95 08/24/17 11:52 95 45 08/24/17 10:00 105 -: 08/25/17 0501 08/25/17 0501 Tubes & Lines: Vas-Cath, Dee Tubes & Lines Comment fentanyl, versed, heparin Drip Comment propofol, fentanyl, bumex Physical Exam General Appearance: Well Developed, Well Nourished, Comfortable Throat Throat Exam: Oral Mucosa Sesser & Moist Pulmonary Resp Exam: Clear Bilaterally, Breath Sounds Equal, Decreased Bases Cardiology CV Exam: Regular, Normal Sinus Rhythm, Good Perfusion Gastrointestinal/Abdomen GI Exam: Soft, Non-Tender, Bowel Sounds Present Musculoskeletal MS Exam: Joints Intact, Normal Tone, Unable to Ambulate Integumentary Skin Exam: Warm, Dry, Intact Extremeties Extremities Exam: Pedal Pulses Palpable, Moderate Edema, Pitting Edema Neurologic Neuro Exam: Unresponsive, Sedated VTE Prophylaxis Device: SCDs Assessment/Plan Assessment Summary: ROLAND/Acute Renal Failure, Acute Tubular Necrosis Problem List: (1) Acute renal failure ICD Codes: N17.9 - Acute kidney failure, unspecified Plan: She has normal renal function at baseline Suspected ATN from sepsis and renal hypoperfusion due to hypotension vancomycin induced nephrotoxicity is also a consideration Low complement levels noted, HENRIQUE negative, hepatitis panel was negative S/p vascath placement, HD inititated 08/22 (2L UF) HD done Saturday with 3L UF. UOP only 150cc/24 hours. Plan next HD Saturday with UF as tolerated to assist with weaning off ventilator. Continue HD MWF and prn Follow renal function, await renal recovery On calcium acetate with tube feeding for hyperphosphatemia Obtain daily labs (2) Joint infection ICD Codes: M00.9 - Pyogenic arthritis, unspecified Status: Acute Plan: ID is following s/p I&D on 08/07 On Zosyn, Zyvox; clindamycin and levaquin were stopped Fever last night (3) Anemia ICD Codes: D64.9 - Anemia, unspecified Plan: hb improved s/p transfusion of 2 units 08/21 anticoagulation has been started (4) DVT (deep venous thrombosis) ICD Codes: I82.409 - Acute embolism and thrombosis of unspecified deep veins of unspecified lower extremity Plan: extensive right arm DVT on Heparin gtt Rafael Mcdowell MD Aug 25, 2017 09:59
--- NOTE | 2017-08-25 11:55 | HHI.CCPN ---
Subjective Remarks/Hospital Course 57-year-old white female with a history of a longstanding COPD and rheumatoid arthritis and fibromyalgia, was admitted with pain and swelling of the left elbow. The patient apparently was out of town and tripped and fell on her elbow injuring the elbow and requiring sutures for a laceration. Subsequently she developed swelling and redness and cellulitis and the patient was then brought to the ER where she was noted to have cellulitis with an abscessed area and now was seen by orthopedics and placed on antibiotic coverage for soft tissue infection with a joint abscess. She also was hypoxic upon admission and has been placed on oxygen via nasal cannula at 3 liters and she does have a cough and her chest x-ray that was done showed acute pulmonary infiltrates. Today she was in severe respiratory distress on the [facility] floor and the rapid response was called. She was transferred immediately to ICU and was intubated shortly after arrival due to severe respiratory distress and hypoxemia. 08/15: Gas exchange impaired, diffuse infiltrates persist. 08/16: Gas exchange remains markedly impaired. We are in for a long haul on the ventilator. 08/17: Gas exchange remains markedly impaired, PEEP 10 elevated FiO2. Diffuse interstitial infiltrates persist (On home oxygen). Extensive right arm and shoulder region DVT. 08/18: Converted to APRV for persistent hypoxemia. Leukocytosis persists. 08/19: A-aO2 gradient gradually improving. Family has reasonable concerns about the length of time she will require mechanical ventilation. They are at odds with each other about the terms defined in her advanced directive. I have asked them to bring the document to us. At this point the patient is gradually improving and will undergo spontaneous breathing trials within a day or two. 08/19: Tmax 100.2. Switched over to PRVC ventilation today. Will check ABG this afternoon. Not tolerating tube feeds currently at 20 cc an hour. 2 BMs yesterday documented. Arousable and follows commands on sedation vacation. 08/20: Yesterday, brought for hemoptysis. Suction trauma noted in the left main bronchus. Status post cold saline/sodium bicarbonate. Hemoglobin dropped from 9.8-7.1. No obvious source of bleeding. Denies abdominal pain. CT abdomen/pelvis pending. Rule out retroperitoneal bleed. Tolerating tube feeding. Hemolysis workup in process. Also noted, creatinine currently elevated at 3.3. Urine eosinophils were yesterday not performed. RN notified. Will do stat. Renal ultrasound revealed medical renal disease, left renal mass. 08/21: Afebrile. Creatinine is increased to 4.5. Urine output has increased however. Currently on PSV trial per pulmonology. CT abdomen/post revealed no retroperitoneal hematoma. Being transfused 2 units PRBCs today. 08/22: Resting comfortably in bed in no acute distress. Arousable falls commands. FiO2 at 50%. PEEP 10- 8. Will not attempt PSV trials today. Will need hemodialysis. 08/23: Increased secretions noted. Patient will be pancultured. Status post hemodialysis yesterday. Tolerating tube feeding. Positive bowel movement. Subjective 08/24: PEEP down to 8. Currently just on a fentanyl drip and appears comfortable. Hypotension overnight resolved. High residuals on tube feedings. Positive BM. 08/25: TMax 100.2 Patient RASS -1, nodding yes and no to questions and mouthing words, currently requesting to be extubated. Patient noted to be tachycardic heart rate in the low 100s. Continued TF residuals of 500 cc. Objective Vital Signs Date Time Temp Pulse Resp B/P (MAP) Pulse Ox O2 Delivery O2 Flow Rate FiO2 08/25/17 11:22 92 50 08/25/17 10:00 106 08/25/17 08:00 99.0 18 132/68 (89) 08/25/17 07:00 Mechanical Ventilator Intake and Output 08/25/17 08/25/17 08/26/17 08:00 16:00 00:00 Intake Total 659 ml Output Total 330.0 ml Balance 329.0 ml Result Diagram: 08/25/17 0501 08/25/17 0501 Other Results Microbiology Date/Time Source Procedure Growth Status 08/23/17 08:25 Sputum Endotracheal Gram Stain - Final Complete 08/23/17 08:25 Sputum Endotracheal Sputum Culture - Final HEAVY GROWTH NORMAL RESPIRATORY OLMAN Complete Imaging Last Impressions Chest X-Ray 08/23/17 0000 Signed Impressions: Service Date/Time: Wednesday, August 23, 2017 01:34 - CONCLUSION: 1. Support apparatus in satisfactory position. Bilateral patchy airspace disease. No significant effusion. Jarrett Keenan MD Abdomen/Pelvis CT 08/20/17 0000 Signed Impressions: Service Date/Time: Sunday, August 20, 2017 17:12 - CONCLUSION: 1. No evidence of discrete renal mass however there is decreased sensitivity without the use of contrast. 2. Minimal left perinephric stranding or fluid. 3. No evidence of hydronephrosis, nephrolithiasis or retroperitoneal hematoma. 4. Status post cholecystectomy. 5. Extensive lung infiltration. Mitesh Rojas MD Renal Ultrasound 08/19/17 0000 Signed Impressions: Service Date/Time: Saturday, August 19, 2017 13:50 - CONCLUSION: 1. Mildly increased renal cortical echogenicity consistent with medical renal disease. 2. Questionable minimally hyperechoic solid mass in the mid left kidney measuring 1.2 x 1.4 1.0 cm. Further evaluation may be performed with CT or MRI renal mass protocol on an outpatient basis. Jovi Loaiza MD Upper Extremity Ultrasound 08/16/17 0000 Signed Impressions: Service Date/Time: Wednesday, August 16, 2017 13:39 - CONCLUSION: Extensive right upper extremity DVT Cleve Barnett MD Chest CT 08/10/17 0000 Signed Impressions: Service Date/Time: Thursday, August 10, 2017 17:36 - CONCLUSION: 1. Upper lobe predominant central emphysema with upper lobe predominant diffuse interstitial and groundglass opacities. Differential considerations include developing ARDS, atypical infection, pulmonary edema, sarcoidosis, and drug induced lung disease amongst other etiologies. 2. Trace right pleural effusion. Jovi Loaiza MD Elbow X-Ray 08/07/17 0000 Signed Impressions: Service Date/Time: Monday, August 07, 2017 13:12 - CONCLUSION: Joint effusion, no fracture Naveed Sage MD FACR Elbow MRI 08/07/17 0000 Signed Impressions: Service Date/Time: Monday, August 07, 2017 14:11 - CONCLUSION: Presumed inflammatory process mainly involving the brachialis. The joint is suspected to be infected as well. There is no osteomyelitis as yet. Neurovascular bundle is displaced medially there are brachial bifurcation findings have been discussed with Latosha FRANCOIS on today's date. Naveed Sage MD FACR Objective Remarks GENERAL: 57-year-old female, critically ill currently orotracheally intubated, awake nodding to questions SKIN: Warm and dry. No rash HEAD: Normocephalic. EYES: No scleral icterus. No injection or drainage. NECK: Supple, trachea midline. Orally intubated. CARDIOVASCULAR: RRR. S1, S2. No S4. Without murmur RESPIRATORY: Coarse crackles appreciated throughout lung cabrera. No wheezing. GASTROINTESTINAL: Abdomen soft, non-tender, nondistended. BS active. MUSCULOSKELETAL: Status post excision and drainage of left elbow. Incision clean, dry. Right upper extremity edema 2+ NEURO EXAM: Moves 4 limbs. WENDY. Opens eyes. Follows simple commands. A/P Assessment and Plan Neuro/Psych: Fibromyalgia Depression/anxiety Chronic pain syndrome Patient is currently on fentanyl drip at 100 g for from an for analgesia while intubated Goal of RASS -2 to 0 Daily sedation vacation Continue doxepin 50 mill grams twice a day, fluoxetine 120 mg daily and bupropion 200 mg by mouth twice a day for depression/anxiety Continue gabapentin 300 mg morning and decreased from 600 mg to 300mg at night CV: Sinus tachycardia Patient is currently hemodynamic stable and not requiring vasopressors and/or antihypertensives PRN metoprolol to medication regimen Resp: Acute hypoxemic respiratory failure secondary due to ILD/COPD Hemoptysis PC/AC rate 14. Inspiratory pressure 16. PEEP 8. Inspiratory time 2.0. FiO2 45% Ventilator bundle Albuterol/ipratropium aerosols every 4 hours with albuterol aerosols every 2 hours when necessary dyspnea Add budesonide aerosols 0.5 mg/2 mL one inhalation twice a day And 3% hypertonic saline aerosols every 4 hours for thinning secretions Already guaifenesin 400 every 8 hours Methylprednisolone 40 mg IV 2 times a day will be continued Dr. Lisa Ibarra - pulmonology is following Chest x-ray 08/20 revealed pulmonary fibrosis as interstitial lung disease without focal pneumothorax. Repeat after bronchoscopy revealed pulmonary edema? Status post bronchoscopy 08/20 for hemoptysis. There was some suction trauma with cessation of bleeding with cold saline/sodium bicarbonate GI: Goals Nepro 50 cc an hour, currently at 10 cc an hour Lansoprazole 30 cc daily GI prophylaxis Docusate sodium 200 mg twice a day/senna liquid 8.6 mg twice a day for bowel regimen and propylene glycol 17 g twice a day Currently on metoclopramide 5 mg IV every 8 hours for prokinetic bowel activity : Dee catheter has been placed for accurate I's and O's in a critically ill patient Endo: Hypothyroidism Continue levothyroxine 50 mcg daily Sliding-scale insulin with Accu-Cheks to maintain euglycemia/medium regimen of Novulin R while on steroids Rheum: RA Currently holding methotrexate 2.5 mg weekly. Likely resume when clinically indicated I discussed w/ Dr. Moya. . Would not resume at the present time. Awaiting records from [facility] regarding underlying rheumatological disease. Rheumatoid factor negative here. Complements both low. Possible post infectious disease Continue folic acid 1 mg by mouth daily Renal: Acute kidney injury Left renal mass Vancomycin discontinued per infectious disease Negative urine eosinophil/creatinine and sodium reveal intrinsic renal disease Hemodialysis yesterday per nephrology Gated C3 and C4 both are low. Rheumatoid factor negative. Renal ultrasound revealed medical renal disease with cortical thickening. Left renal mass 1.2 x 1.[address] did not reveal any evidence of mass.. This is a chronic issue with this patient according to family. Nephrology consultation. Dr. Moya Heme: Leukocytosis Macrocytic anemia Right upper extremity DVT Monitor CBC daily. Follow trends Ultrasound reveals nonocclusive thrombus right subclavian/axillary and occlusive thrombus radial/cephalic 08/20 held enoxaparin 80 mg subcutaneous twice a day in light of hemoptysis. Initiate heparin drip 08/23. 08/20 CT abdomen/pelvis ruled out retroperitoneal hematoma ID: MRSA left elbow Piperacillin/tazobactam and linezolid day #2 Vancomycin discontinued 08/19. Cefepime discontinued 08/20. Levofloxacin and clindamycin discontinued 08/23 Bronchoscopy cultures 08/19 no growth today. Blood cultures 2, urine and sputum today 08/23 FEN: Hyperphosphatemia Replace electrolytes as clinically indicated Continue calcium acetate 1334 mg by mouth 3 times a day MSK: Status post ORIF left septic elbow 07/28 - MRSA Long-term antibiotics per infectious disease Access - Right IJ CVL - Left IJ hemodialysis catheter placed 08/22. Prophylaxis - GI - lansoprazole - DVT - SCD/heparin drip Critical Care: This patient remains critically ill with one or more organ systems which are or may become a threat to life. I have spent in excess of 40 minutes discontinuously in the care and management of this patient. This time is exclusive of procedures, and includes, but is not limited to, evaluation of the patient, review of the medical record, discussions with family, consultants, nursing staff, or respiratory therapy, and documentation in the medical record. Physician Divya Contreras MD Aug 25, 2017 11:55
--- NOTE | 2017-08-25 11:59 | HHI.PR ---
Subjective Remarks on the ventilator sedated Objective Vital Signs Date Time Temp Pulse Resp B/P (MAP) Pulse Ox O2 Delivery O2 Flow Rate FiO2 08/25/17 11:22 92 50 08/25/17 10:00 106 08/25/17 08:05 92 45 08/25/17 08:00 108 08/25/17 08:00 99.0 108 18 132/68 (89) 92 08/25/17 08:00 45 08/25/17 07:00 91 Mechanical Ventilator 45 08/25/17 06:00 97 08/25/17 04:27 94 40 08/25/17 04:00 98.2 99 19 115/57 (76) 93 08/25/17 04:00 45 08/25/17 04:00 99 08/25/17 02:00 98 08/25/17 01:17 95 40 08/25/17 00:00 100.0 100 14 131/66 (87) 93 08/25/17 00:00 45 08/25/17 00:00 100 08/24/17 22:12 100 40 08/24/17 22:00 103 08/24/17 20:10 100 40 08/24/17 20:00 100.4 100 14 113/61 (78) 93 08/24/17 20:00 102 08/24/17 20:00 45 08/24/17 19:00 93 Mechanical Ventilator 45 08/24/17 18:00 104 08/24/17 16:00 99.3 104 14 105/54 (71) 93 08/24/17 16:00 45 08/24/17 16:00 104 08/24/17 14:00 120 08/24/17 12:00 115 08/24/17 12:00 45 08/24/17 12:00 100.8 114 16 115/59 (77) 95 I/O 08/24/17 08/24/17 08/24/17 08/25/17 08/25/17 08/25/17 07:00 15:00 23:00 07:00 15:00 23:00 Intake Total 1310 ml 350 ml 1191 ml 309 ml 350 ml Output Total 200 ml 350.0 ml 350.0 ml 80 ml 250.0 ml Balance 1110 ml 0 ml 841.0 ml 229 ml 100.0 ml IV Total 543 ml 350 ml 663 ml 350 ml Tube Feeding 537 ml 453 ml 309 ml Albumin 50 ml Tube Irrigant 75 ml Other 180 ml Output Urine Total 50 ml 50 ml 80 ml Stool Total 150 ml 0 ml Tube Feeding Residual Discard 350.0 ml 300.0 ml 0 ml 250.0 ml Result Diagram: 08/25/17 0501 08/25/17 050 Objective Remarks GENERAL: SKIN: Warm and dry. HEAD: Atraumatic. Normocephalic. EYES: Pupils equal and round. No scleral icterus. No injection or drainage. ENT: No nasal bleeding or discharge. Mucous membranes pink and moist. NECK: Trachea midline. No JVD. CARDIOVASCULAR: Regular rate and rhythm. RESPIRATORY: No accessory muscle use. Clear to auscultation. Breath sounds equal bilaterally. GASTROINTESTINAL: Abdomen soft, non-tender, nondistended. Hepatic and splenic margins not palpable. MUSCULOSKELETAL: Extremities without clubbing, cyanosis, or edema. No obvious deformities. NEUROLOGICAL: Awake and alert. No obvious cranial nerve deficits. Motor grossly within normal limits. Five out of 5 muscle strength in the arms and legs. Normal speech. PSYCHIATRIC: Appropriate mood and affect; insight and judgment normal. Assessment and Plan Assessment and Plan respiratory failure sepsis vent. dependent plan vent. support antibiotics per ID WEAN TOLERATED Stacey Ibarra MD Aug 25, 2017 11:59
[2017-08-25] MEDS: METOPROLOL TARTRATE 5 MG/5 ML VIAL IV PUSH PRN ×2 (12:18→22:00)
[2017-08-25] MEDS: fentaNYL DRIP 250 ML IV PRN ×2 (13:30→23:00)
--- NOTE | 2017-08-25 14:34 | HHI.IDPN ---
Subjective Subjective Remarks cont to have fever up to 101 sputum with nl resp tamiko blood clx neagativ so far @ 2 days On HD oliguric, nealry anuric Large amount of secretions remains on vent, diarrhea, c.diff negative Antibiotics zyvox zosyn Allergies: Coded Allergies: No Known Allergies (Unverified , 08/07/17) Objective . Vital Signs Date Time Temp Pulse Resp B/P (MAP) Pulse Ox O2 Delivery O2 Flow Rate FiO2 08/25/17 11:22 92 50 08/25/17 10:00 106 08/25/17 08:05 92 45 08/25/17 08:00 108 08/25/17 08:00 99.0 108 18 132/68 (89) 92 08/25/17 08:00 45 08/25/17 07:00 91 Mechanical Ventilator 45 08/25/17 06:00 97 08/25/17 04:27 94 40 08/25/17 04:00 98.2 99 19 115/57 (76) 93 08/25/17 04:00 45 08/25/17 04:00 99 08/25/17 02:00 98 08/25/17 01:17 95 40 08/25/17 00:00 100.0 100 14 131/66 (87) 93 08/25/17 00:00 45 08/25/17 00:00 100 08/24/17 22:12 100 40 08/24/17 22:00 103 08/24/17 20:10 100 40 08/24/17 20:00 100.4 100 14 113/61 (78) 93 08/24/17 20:00 102 08/24/17 20:00 45 08/24/17 19:00 93 Mechanical Ventilator 45 08/24/17 18:00 104 08/24/17 16:00 99.3 104 14 105/54 (71) 93 08/24/17 16:00 45 08/24/17 16:00 104 08/25/17 08/25/17 08/26/17 15:00 23:00 07:00 Intake Total 400 ml Output Total 250.0 ml Balance 150.0 ml IV Total 400 ml Tube Feeding Residual Discard 250.0 ml . Laboratory Tests Test 08/24/17 03:45 08/25/17 05:01 White Blood Count 17.9 TH/MM3 15.0 TH/MM3 Red Blood Count 2.84 MIL/MM3 2.77 MIL/MM3 Hemoglobin 9.0 GM/DL 8.9 GM/DL Hematocrit 27.4 % 26.5 % Mean Corpuscular Volume 96.5 FL 95.4 FL Mean Corpuscular Hemoglobin 31.6 PG 31.9 PG Mean Corpuscular Hemoglobin Concent 32.8 % 33.5 % Red Cell Distribution Width 17.3 % 16.8 % Platelet Count 246 TH/MM3 253 TH/MM3 Mean Platelet Volume 8.6 FL 8.5 FL Neutrophils (%) (Auto) 90.3 % 91.4 % Lymphocytes (%) (Auto) 3.0 % 4.1 % Monocytes (%) (Auto) 4.1 % 3.4 % Eosinophils (%) (Auto) 2.1 % 0.6 % Basophils (%) (Auto) 0.5 % 0.5 % Neutrophils # (Auto) 16.2 TH/MM3 13.7 TH/MM3 Lymphocytes # (Auto) 0.5 TH/MM3 0.6 TH/MM3 Monocytes # (Auto) 0.7 TH/MM3 0.5 TH/MM3 Eosinophils # (Auto) 0.4 TH/MM3 0.1 TH/MM3 Basophils # (Auto) 0.1 TH/MM3 0.1 TH/MM3 CBC Comment AUTO DIFF AUTO DIFF Differential Total Cells Counted 100 100 Neutrophils % (Manual) 74 % 83 % Band Neutrophils % 8 % 2 % Lymphocytes % 3 % 6 % Monocytes % 4 % 3 % Eosinophils % 3 % 1 % Basophils % 1 % Neutrophils # (Manual) 15.9 TH/MM3 13.5 TH/MM3 Metamyelocytes 3 % 2 % Myelocytes 3 % 3 % Promyelocytes 1 % Differential Comment FINAL DIFF MANUAL FINAL DIFF MANUAL Dohle Bodies PRESENT Platelet Estimate NORMAL NORMAL Platelet Morphology Comment NORMAL NORMAL Nucleated Red Blood Cells 1 /100 WBC Red Cell Morphology Comment NORMAL Laboratory Tests Test 08/24/17 03:45 08/25/17 05:01 Blood Urea Nitrogen 84 MG/DL 112 MG/DL Creatinine 4.75 MG/DL 6.55 MG/DL Random Glucose 153 MG/DL 165 MG/DL Albumin 2.2 GM/DL 2.1 GM/DL Calcium Level 8.4 MG/DL 8.5 MG/DL Phosphorus Level 6.4 MG/DL 8.8 MG/DL Sodium Level 136 MEQ/L 133 MEQ/L Potassium Level 4.6 MEQ/L 4.3 MEQ/L Chloride Level 98 MEQ/L 90 MEQ/L Carbon Dioxide Level 25.0 MEQ/L 26.9 MEQ/L Anion Gap 13 MEQ/L 16 MEQ/L Estimat Glomerular Filtration Rate 9 ML/MIN 7 ML/MIN Microbiology Date/Time Source Procedure Growth Status 08/23/17 09:11 Blood Peripheral Aerobic Blood Culture - Preliminary NO GROWTH IN 2 DAYS Resulted 08/23/17 09:11 Blood Peripheral Anaerobic Blood Culture - Preliminary NO GROWTH IN 2 DAYS Resulted 08/23/17 09:05 Blood Peripheral Aerobic Blood Culture - Preliminary NO GROWTH IN 2 DAYS Resulted 08/23/17 09:05 Blood Peripheral Anaerobic Blood Culture - Preliminary NO GROWTH IN 2 DAYS Resulted 08/23/17 08:25 Sputum Endotracheal Gram Stain - Final Complete 08/23/17 08:25 Sputum Endotracheal Sputum Culture - Final HEAVY GROWTH NORMAL RESPIRATORY TAMIKO Complete 08/23/17 08:25 Urine Catheterized Urine Urine Culture - Final Estela Albicans Complete Imaging Last Impressions Chest X-Ray 08/23/17 0000 Signed Impressions: Service Date/Time: Wednesday, August 23, 2017 01:34 - CONCLUSION: 1. Support apparatus in satisfactory position. Bilateral patchy airspace disease. No significant effusion. Jarrett Keenan MD Abdomen/Pelvis CT 08/20/17 0000 Signed Impressions: Service Date/Time: Sunday, August 20, 2017 17:12 - CONCLUSION: 1. No evidence of discrete renal mass however there is decreased sensitivity without the use of contrast. 2. Minimal left perinephric stranding or fluid. 3. No evidence of hydronephrosis, nephrolithiasis or retroperitoneal hematoma. 4. Status post cholecystectomy. 5. Extensive lung infiltration. Mitesh Rojas MD Renal Ultrasound 08/19/17 0000 Signed Impressions: Service Date/Time: Saturday, August 19, 2017 13:50 - CONCLUSION: 1. Mildly increased renal cortical echogenicity consistent with medical renal disease. 2. Questionable minimally hyperechoic solid mass in the mid left kidney measuring 1.2 x 1.4 1.0 cm. Further evaluation may be performed with CT or MRI renal mass protocol on an outpatient basis. Jovi Loaiza MD Upper Extremity Ultrasound 08/16/17 0000 Signed Impressions: Service Date/Time: Wednesday, August 16, 2017 13:39 - CONCLUSION: Extensive right upper extremity DVT Cleve Barnett MD Chest CT 08/10/17 0000 Signed Impressions: Service Date/Time: Thursday, August 10, 2017 17:36 - CONCLUSION: 1. Upper lobe predominant central emphysema with upper lobe predominant diffuse interstitial and groundglass opacities. Differential considerations include developing ARDS, atypical infection, pulmonary edema, sarcoidosis, and drug induced lung disease amongst other etiologies. 2. Trace right pleural effusion. Jovi Loaiza MD Elbow X-Ray 08/07/17 0000 Signed Impressions: Service Date/Time: Monday, August 07, 2017 13:12 - CONCLUSION: Joint effusion, no fracture Naveed Sage MD FACR Elbow MRI 08/07/17 0000 Signed Impressions: Service Date/Time: Monday, August 07, 2017 14:11 - CONCLUSION: Presumed inflammatory process mainly involving the brachialis. The joint is suspected to be infected as well. There is no osteomyelitis as yet. Neurovascular bundle is displaced medially there are brachial bifurcation findings have been discussed with Latosha FRANCOIS on today's date. Naveed Sage MD FACR Physical Exam CONSTITUTIONAL/GENERAL: This is an adequately nourished patient, + increased resp effort TUBES/LINES/DRAINS: SKIN: No jaundice, rashes, or lesions. CARDIOVASCULAR: Regular rate and rhythm without murmurs, gallops, or rubs. RESPIRATORY/CHEST: Symmetric, tachypneic decreased BS b/l, + rhonchi GASTROINTESTINAL: Abdomen soft, non-tender, mildly distended. MUSCULOSKELETAL: Extremities without clubbing, cyanosis, Prominent RUE with persistant prominent non pitting edema. No change LUE with very clean healing incision w/o erythema or edema BLE with some edema today , no erythema : sewell iplace with somewhat cloudy urine NEUROLOGICAL: sedated, arousable, reacts to voice, but not opening eyes PSYCHIATRIC: unable to assess Assessment & Plan Remarks Assessment and Plan Septic arthitis L elbow with deep abscess L brachialis muscle, MRSA sp I+D - healed, no e/o ongoing infx Acute VDRF - PNA vs non ifectious pneumonitis -not favoring PNA, more likely chronic intersitial lung disaes with advanced chronic resp failure interstitial and groundglass opacities Severe leukocytosis RA, on Humira RUE DVT Low grade fever ? from DVT - improved Low compliment levels - pt with underlying CTD Worsening AFR vancomycin stopped - no eosinophils ? UTI - UA abn, clx negative, but CT with stranding Pt is critically ill Hemoptysis, sp BAL, clx negative Worsening creatinine, going on HD New fever and worsening leukocytos PNA, new ? - icreasing secretions Funguria - doubt clin significance Rec's: - fu blood, sputum and urine clx - dc zosyn, - dc zyvox - start cefepime restart clindamycin for her septic L elbow artthritis - avoid nephotoxic meds Marilyn Fabian MD Aug 25, 2017 14:34
[2017-08-25] MEDS: CEFEPIME INJ 1,000 MG in SODIUM CHLORIDE 0.9% INJ 100 ML IV SCH (16:28)
[2017-08-25] MEDS: CLINDAMYCIN INJ 600 MG in SODIUM CHLORIDE 0.9% INJ 100 ML IV SCH ×2 (17:27→21:53)
[2017-08-25 18:01] LABS: APTT (PATIENT) 65.8 SEC (24.3-30.1)
[2017-08-25] MEDS: ACETAMINOPHEN 650 MG/20.3 ML UDC OG-TUBE PRN (22:00)
[2017-08-26] VITALS (17 sets, daily range): BP systolic 110–153; BP diastolic 59–83; PULSE 93–112; RESP 15–25; TEMP 98–101.1; O2SAT 90–98
[2017-08-26 01:17] LABS: APTT (PATIENT) 68.9 SEC (24.3-30.1)
[2017-08-26] MEDS: RESP: ALBUTEROL 2.5 MG/IPRATROPIUM 0.5 MG NEB (SCH) NEB ×5 (03:47→20:04)
[2017-08-26] MEDS: RESP: SODIUM CHLORIDE 3% 4 ML NEB NEB SCH ×5 (03:48→20:04)
[2017-08-26] MEDS: CLINDAMYCIN INJ 600 MG in SODIUM CHLORIDE 0.9% INJ 100 ML IV SCH ×4 (03:51→20:30)
[2017-08-26] MEDS: METOCLOPRAMIDE HCL 10 MG/2 ML VIAL IV PUSH SCH ×3 (05:33→20:32)
[2017-08-26] MEDS: ARTIFICIAL TEARS OPTH SOLN 15 ML BTL EACH EYE SCH ×3 (05:33→20:32)
[2017-08-26] MEDS: guaiFENesin SOLUTION 200 MG/10 ML CUP OG-TUBE SCH ×3 (05:34→20:30)
--- NOTE | 2017-08-26 05:46 | RADRPT ---
EXAM DATE/TIME: 08/26/2017 04:53 [facility] COMPARISON: CHEST SINGLE AP, August 25, 2017, 4:23. INDICATIONS : Short of breath. MEDICAL HISTORY : Chronic obstructive pulmonary disease. Gastroesophageal reflux disease. Diverticulitis. IBS, Fibromya lgia SURGICAL HISTORY : Appendectomy. Cholecystectomy. Tubal ligation. ENCOUNTER: Subsequent ACUITY: 2 weeks PAIN SCORE: 0/10 LOCATION: Bilateral chest FINDINGS: The cardiac silhouette is enlarged in transverse diameter. There is patchy alveolar disease bilateral ly compatible with edema or pneumonia. There has been no significant change when compared to the prio r exam. Support lines and tubes are in satisfactory position. CONCLUSION: 1. Patchy alveolar disease characteristic of edema or pneumonia. There has been no significant perea e when compared to the prior exam. Ranjit Espinal MD on August 26, 2017 at 5:45 Board Certified Radiologist. This report was verified electronically.
[2017-08-26 05:53] LABS: AUTOMATED NEUTROPHIL # 12.6 TH/MM3 (1.8-7.7); BASOPHIL # 0.1 TH/MM3 (0-0.2); BASOPHIL % 0.5 % (0.0-2.0); EOSINOPHIL # 0.1 TH/MM3 (0-0.4); EOSINOPHIL % 0.4 % (0.0-4.0); HEMATOCRIT 26.6 % (35.0-46.0); LYMPH % 3.5 % (9.0-44.0); LYMPHOCYTE # 0.5 TH/MM3 (1.0-4.8); MEAN CELL VOLUME 95.1 FL (80.0-100.0); MEAN CORPUSCULAR HEMOGLOBIN 31.7 PG (27.0-34.0); MEAN CORPUSCULAR HGB CONC 33.3 % (32.0-36.0); MONO % 4.9 % (0.0-8.0); NEUT % 90.7 % (16.0-70.0); PLATELET COUNT 243 TH/MM3 (150-450); RED BLOOD COUNT 2.79 MIL/MM3 (4.00-5.30); RED CELL DISTRIBUTION WIDTH 16.5 % (11.6-17.2); WHITE BLOOD COUNT 13.9 TH/MM3 (4.0-11.0)
[2017-08-26 05:58] LABS: HEMO FLAGS AUTO DIFF
[2017-08-26] MEDS: INSULIN NovoLIN REGULAR SUPPLEMENTAL SCALE SQ SCH ×5 (06:00→23:25)
[2017-08-26 06:26] LABS: APTT (PATIENT) 111.8 SEC (24.3-30.1)
[2017-08-26 06:38] LABS: BICARBONATE 23.9 MEQ/L (21.0-32.0); MAGNESIUM 2.2 MG/DL (1.5-2.5); POTASSIUM 5.1 MEQ/L (3.5-5.1)
[2017-08-26 06:51] LABS: BANDS 5 % (0-6); BASOPHILS 2 % (0-2); MYELOCYTES 1 % (0-0); NEUTROPHIL # MANUAL DIFF 12.2 TH/MM3 (1.8-7.7); PLATELET ESTIMATE SMEAR NORMAL (NORMAL); PLATELET MORPHOLOGY NORMAL (NORMAL); POLYS (SEG NEUTROPHILS) 82 % (16-70); SCAN/DIFF FINAL DIFF MANUAL; WBC DIFF SAMPLE 100
[2017-08-26 07:28] LABS: APTT (PATIENT) 76.5 SEC (24.3-30.1)
[2017-08-26] MEDS: RESP: BUDESONIDE 0.5 MG/2 ML NEB NEB SCH ×2 (07:33→20:04)
[2017-08-26] MEDS: SODIUM CHLORIDE 0.9% FLUSH 10 ML FLUSH IV FLUSH SCH ×4 (09:00→20:33)
[2017-08-26] MEDS: POLYETHYLENE GLYCOL 17 GM PKG NG SCH ×2 (09:00→20:29)
[2017-08-26] MEDS: SENNOSIDES SYRUP 8.8 MG/5 ML CUP NG SCH ×2 (09:00→20:34)
[2017-08-26] MEDS: DOXEPIN HCL 50 MG CAP PO SCH ×2 (09:00→20:30)
[2017-08-26] MEDS: FOLIC ACID 1 MG TAB PO SCH (09:00)
[2017-08-26] MEDS: DOCUSATE SODIUM 100 MG/10 ML UDC PO SCH ×2 (09:00→20:30)
[2017-08-26] MEDS: buPROPion HCL 100 MG SUSTAINED RELEASE TAB PO SCH ×2 (09:00→20:32)
[2017-08-26] MEDS: GABAPENTIN 300 MG CAP PO SCH ×2 (09:00→20:30)
[2017-08-26] MEDS: CALCIUM ACETATE 667 MG CAP PO SCH ×3 (09:00→17:58)
[2017-08-26] MEDS: LANSOPRAZOLE SOLUTAB 30 MG TAB NG SCH (09:00)
[2017-08-26] MEDS: CHLORHEXIDINE 0.12% (ORAL KIT) 15 ML CUP MT SCH ×2 (09:29→20:33)
[2017-08-26] MEDS: methylPREDNISolone SOD SUCC 40 MG/1 ML VIAL IV PUSH SCH ×2 (09:55→20:33)
[2017-08-26] MEDS: METOPROLOL TARTRATE 5 MG/5 ML VIAL IV PUSH PRN (09:55)
[2017-08-26] MEDS: fentaNYL DRIP 250 ML IV PRN (11:22)
[2017-08-26] MEDS: HEPARIN-D5W 25,000 U/250 ML 250 ML IV PRN (11:25)
--- NOTE | 2017-08-26 11:27 | HHI.NPPN ---
Subjective Renal Failure: Acute Interval History Renal function is worse. Urine output has slowed. Seen during bedside dialysis. (Yanely Lipscomb) Review of Systems General General Remarks unable to evaluate (Yanely Lipscomb) Objective Data Data Vital Signs Date Time Temp Pulse Resp B/P (MAP) Pulse Ox O2 Delivery O2 Flow Rate FiO2 08/26/17 11:00 95 100 08/26/17 07:33 94 65 08/26/17 06:00 95 08/26/17 04:23 92 65 08/26/17 04:00 99 08/26/17 04:00 65 08/26/17 04:00 98.6 104 16 110/83 (92) 90 08/26/17 02:00 101 08/26/17 00:00 110 08/26/17 00:00 101.1 110 15 142/69 (93) 92 08/26/17 00:00 65 08/25/17 23:29 92 65 08/25/17 22:00 110 08/25/17 21:28 93 50 08/25/17 20:00 100.3 96 14 128/75 (92) 93 08/25/17 20:00 103 08/25/17 20:00 50 08/25/17 19:00 90 Mechanical Ventilator 45 08/25/17 18:00 99 08/25/17 16:34 94 50 08/25/17 16:00 50 08/25/17 16:00 98.8 102 16 139/66 (90) 92 08/25/17 16:00 102 08/25/17 14:00 107 08/25/17 12:00 100.4 120 20 147/69 (95) 92 08/25/17 12:00 120 08/25/17 12:00 50 08/25/17 11:22 92 50 (Yanely Lipscomb) -: 08/26/17 0531 08/26/17 0531 Imaging Last Impressions Chest X-Ray 08/26/17 0600 Signed Impressions: Service Date/Time: Saturday, August 26, 2017 04:53 - CONCLUSION: 1. Patchy alveolar disease characteristic of edema or pneumonia. There has been no significant change when compared to the prior exam. Ranjit Espinal MD Abdomen/Pelvis CT 08/20/17 0000 Signed Impressions: Service Date/Time: Sunday, August 20, 2017 17:12 - CONCLUSION: 1. No evidence of discrete renal mass however there is decreased sensitivity without the use of contrast. 2. Minimal left perinephric stranding or fluid. 3. No evidence of hydronephrosis, nephrolithiasis or retroperitoneal hematoma. 4. Status post cholecystectomy. 5. Extensive lung infiltration. Mitesh Rojas MD Renal Ultrasound 08/19/17 0000 Signed Impressions: Service Date/Time: Saturday, August 19, 2017 13:50 - CONCLUSION: 1. Mildly increased renal cortical echogenicity consistent with medical renal disease. 2. Questionable minimally hyperechoic solid mass in the mid left kidney measuring 1.2 x 1.4 1.0 cm. Further evaluation may be performed with CT or MRI renal mass protocol on an outpatient basis. Jovi Loaiza MD Upper Extremity Ultrasound 08/16/17 0000 Signed Impressions: Service Date/Time: Wednesday, August 16, 2017 13:39 - CONCLUSION: Extensive right upper extremity DVT Cleve Barnett MD Chest CT 08/10/17 0000 Signed Impressions: Service Date/Time: Thursday, August 10, 2017 17:36 - CONCLUSION: 1. Upper lobe predominant central emphysema with upper lobe predominant diffuse interstitial and groundglass opacities. Differential considerations include developing ARDS, atypical infection, pulmonary edema, sarcoidosis, and drug induced lung disease amongst other etiologies. 2. Trace right pleural effusion. Jovi Loaiza MD Elbow X-Ray 08/07/17 0000 Signed Impressions: Service Date/Time: Monday, August 07, 2017 13:12 - CONCLUSION: Joint effusion, no fracture Naveed Sage MD FACR Elbow MRI 08/07/17 0000 Signed Impressions: Service Date/Time: Monday, August 07, 2017 14:11 - CONCLUSION: Presumed inflammatory process mainly involving the brachialis. The joint is suspected to be infected as well. There is no osteomyelitis as yet. Neurovascular bundle is displaced medially there are brachial bifurcation findings have been discussed with Latosha FRANCOIS on today's date. Naveed Sage MD FACR Tubes & Lines: Vas-Cath, Dee Drip Comment propofol, fentanyl, heparin (Yanely Lipscomb) Physical Exam General Appearance: Well Developed, Well Nourished, Comfortable Appearance Remarks intubated, awakens to voice (Yanely Lipscomb) Throat Throat Exam: Oral Mucosa [place] & Moist (Yanely Lipscomb) Pulmonary Resp Exam: Clear Bilaterally, Breath Sounds Equal, Decreased Bases (Yanely Lipscomb) Cardiology CV Exam: Regular, Normal Sinus Rhythm, Good Perfusion (Yanely Lipscomb) Gastrointestinal/Abdomen GI Exam: Soft, Non-Tender, Bowel Sounds Present (Yanely Lipscomb) Musculoskeletal MS Exam: Joints Intact, Normal Tone, Unable to Ambulate (Yanely Lipscomb) Integumentary Skin Exam: Warm, Dry, Intact Skin Remarks left elbow with sutures (Yanely Lipscomb) Extremeties Extremities Exam: Pedal Pulses Palpable, Moderate Edema, Pitting Edema Extremeties Remarks right arm edematous (Yanely Lipscomb) Neurologic Neuro Exam: Awake, Sedated (Yanely Lipscomb) VTE Prophylaxis Device: SCDs (Yanely Lipscomb) Assessment/Plan Assessment Summary: ROLAND/Acute Renal Failure, Acute Tubular Necrosis Problem List: (1) Acute renal failure ICD Codes: N17.9 - Acute kidney failure, unspecified Plan: She has normal renal function at baseline Suspected ATN from sepsis and renal hypoperfusion due to hypotension Low complement levels noted, HENRIQUE negative, hepatitis panel was negative S/p vascath placement, HD inititated 08/22 (2L UF) Seen during dialysis today on a 2K, 300 BFR, goal 3L Continue HD support MWF ans as needed Adjust UF with dialysis Her urine output has dropped Follow renal function, await renal recovery On calcium acetate with tube feeding for hyperphosphatemia, increase dose today ; on Nepro tube feedings Obtain daily labs (2) Joint infection ICD Codes: M00.9 - Pyogenic arthritis, unspecified Status: Acute Plan: ID is following s/p I&D on 08/07 On cefepime and clindamycin (3) Anemia ICD Codes: D64.9 - Anemia, unspecified Plan: hb improved s/p transfusion of 2 units 08/21 anticoagulation has been started (4) DVT (deep venous thrombosis) ICD Codes: I82.409 - Acute embolism and thrombosis of unspecified deep veins of unspecified lower extremity Plan: extensive right arm DVT on Heparin gtt (Yanely Lipscomb) Plan patient was seen and examined. Agree with above assessment and plan. Seen during dialysis today. (Jaime Moya MD) Yanely Lipscomb Aug 26, 2017 11:27 Jaime Moya MD Aug 26, 2017 19:23
[2017-08-26] MEDS: GENTAMICIN SULFATE (DIALYSIS USE ONLY) 20 MG/2 ML VIAL OTHER PRN (11:41)
[2017-08-26] MEDS: HEPARIN SODIUM - IV 10,000 UNITS/10 ML VIAL PRN (11:41)
[2017-08-26] MEDS: SODIUM CHLOR 0.9% 1000 ML INJ 1,000 ML OTHER PRN (11:42)
[2017-08-26] MEDS: CHOLECALCIFEROL (VIT D3) 1000 UNIT TAB PO SCH (12:29)
[2017-08-26] MEDS: LEVOTHYROXINE SODIUM 50 MCG TAB PO SCH (12:29)
--- NOTE | 2017-08-26 14:54 | PD.CONS ---
Consult Service Palliative Care Consult Requested By Dr. Ny . Primary Care Physician No Primary Care Physician Reason for Consultation a. To assist with evaluation and management of symptoms including: dyspnea, malnutrition b. To assist medical decision maker(s) with: better understanding of current medical conditions; weighing benefits/burdens of medical treatment options; making medical treatment decisions. HPI History of Present Illness This patient presented to the ED on 08/07/17 with complaints of worsening elbow pain. On July 20 she reported a trip and fall which resulted in injuring her left elbow, she was seen in [place] and had x-rays and 3 sutures. This ED visit reports 9 days prior she began noticing infection and went to a different ER and was started on Keflex and sutures were removed. Patient reported in the 3 days leading up to presentation she had swelling, sharp stabbing pain in the same elbow worsening with movement. Denied fever, nausea, vomiting, chest pain, shortness of breath, any new injury, numbness or tingling. Naproxen initially helped for pain but had gotten worse. * Ultrasound negative for DVT, x-ray negative for fracture positive joint effusion. MRI=Presumed inflammatory process mainly involving the brachialis. The joint is suspected to be infected as well. There is no osteomyelitis as yet. Upon further discussion with radiologist it was noted there appears to be abscess in the joint. Patient was admitted for further evaluation, possible surgical intervention. * Orthopedic surgery evaluated and planned for elbow irrigation and debridement ; 08/07/17 to OR for incision and drainage left elbow for septic arthritis. * ID was consulted--patient on Zosyn, vancomycin. Culture with gram-positive olman, continue current antibiotic course with adjustments as indicated by culture results--anticipates will probably require antibiotics for about 4 weeks * 08/09 slow improvement, PT, OT working with patient on ROM. Orthopedics request methotrexate and Humira be held while treating active infection. Okay for DC per orthopedics. Prepared for possible discharge when okay with ID. Culture positive MRSA. ID recommends continue vancomycin 4 weeks continue to follow cultures until final, patient will need PICC line. Zosyn discontinued. Case management assisting with discharge planning for IV antibiotics and PICC. * 08/10 patient with some tachycardia and dyspnea on exertion, also noted to be hypoxic O2 sats 91%. CXR indicated of right-sided pneumonia; findings discussed with ID CT chest was recommended patient with known history COPD. Discharge held. Pulmonology consulted . Pulmonology notes patient with COPD and emphysema, chronic bronchitis. Recommends continue O2, DuoNeb's, Symbicort and obtain PFTs. Sputum for culture. May require home O2. Chest CT= 1. Upper lobe predominant central emphysema with upper lobe predominant diffuse interstitial and groundglass opacities. Differential considerations include developing ARDS, atypical infection, pulmonary edema, sarcoidosis, and drug induced lung disease amongst other etiologies. 2. Trace right pleural effusion. ID: Continue cefepime, Levaquin, Vanco, sputum culture pending. ?Atypical pneumonia. * 08/12 requiring BiPAP. Some cough and wheezing O2 sats 95%. * 08/13 requiring nonrebreather alternating with Venturi mask , again required BiPAP overnight. Still with significant shortness of breath and O2 desaturation with talking. * 08/14 with worsening hypoxia, developed respiratory distress requiring rapid response: Transfer to ICU. She was intubated shortly after arrival * 08/15 remains intubated patient noted with diffuse interstitial lung process with superimposed infiltrate. Not tolerating ventilator weaning. * 08/17 still on mechanical vent. ID discontinues cefepime, continue Levaquin, Vanco. ?= Acute VDR - PNA vs non ifectious pneumonitis * 08/20 patient underwent bronchoscopy for bright red hemoptysis per ET tube. Noted with hemorrhagic secretions, suction trauma left main bronchus. Hemoglobin trending down 9.87.1. Hemolysis workup in progress. Creatinine rising 3.3. Renal ultrasound= medical renal disease, left renal mass. Conditions were discussed with son and daughter at bedside. Nephrology consult pending, CT abdomen pelvis to be obtained to rule out retroperitoneal hematoma.( CT abdomen pelvis negative for retroperitoneal hematoma) * 08/21 creatinine continues to increase 4.5, urine output adequate. Responding to Bumex. If no improvement may require hemodialysis per nephrology. S1 daughter. CPAP trials per pulmonology. * 08/22 hemodialysis left IJ placed; dialyzed with 2 L removed. Remains on mechanical vent. Nephro: Suspected ATN from sepsis and renal hypoperfusion due to hypotension vancomycin induced nephrotoxicity is also a consideration Low complement levels noted, HENRIQUE in process, hepatitis panel was negative. On Zosyn, Zyvox. Receiving tube feeding. * 08/24- PEEP weaned slightly. Requiring fentanyl for sedation. Some hypotension overnight. Having bowel movements. High tube feed residuals. Records request has been sent to [facility] regarding underlying rheumatological disease. Rheumatoid factor negative here. Complements low. Possible post infectious disease. Methotrexate continues to be held. * 08/25 fever 101, blood culture negative 2 days. Continues on hemodialysis, minimal urine output. Copious ET tube secretions. Having diarrhea negative for C. difficile. ID continues Zyvox, Zosyn. Per ID:-not favoring PNA, more likely chronic interstitial lung disease with advanced chronic resp failure interstitial and groundglass opacities. ID restarting cefepime// discontinues Zosyn, Zyvox. Per critical care assessment patient not into some questions involving weren't in requesting to be extubated. She remains critically ill. Palliative care was consulted to assist with clarification of goals of treatment. Patient seen in room daughter Dimas at bedside. Patient sedated, on mechanical vent. Minimally responsive to exam. Nursing reports she does follow commands when sedation lightened. Some abdominal muscle use observed during ventilator respirations. Spoke with daughter briefly at bedside, family meeting with multiple others on conference call in conference room after exam. Discussed case with RN at length, as well as critical care Dr. Jerez . Function/Cognitive Trajectory Lived alone and independently prior to this admission though reported may have had home O2 prn . Review of Systems ROS Limitations: Clinical Condition, Intubated Past Family Social History Coded Allergies: No Known Allergies (Unverified , 08/07/17) Past Medical History Rheumatoid arthritis Anxiety COPD Diverticulitis Fibromyalgia Depression . Past Surgical History Left knee surgery x 2 Colon resection 8 years ago Tubal ligation . Reported Medications Zofran (Ondansetron HCl) 4 Mg Tab 4 Mg PO Q12HR PRN Doxepin (Doxepin HCl) 50 Mg Cap 50 Mg PO BID Zinc Gluconate 50 Mg Tab 50 Mg PO DAILY Humira 2-Pack Inj (Adalimumab 2-Pack Inj) 40 Mg/0.8 Ml Syr 40 Mg SQ Q14D Prednisone 20 Mg Tab 20 Mg PO DIRECTED 40 MG twice a day x 3 days, then 20 MG daily x 3 days, then 10 MG daily x 3 days Proair Hfa 8.5 GM Inh (Albuterol Sulfate) 90 Mcg/Act Aer 1 Puff INH Q4H PRN 108 mcg/actuation Dulera 120 Act Inh (Mometasone-Formoterol 120 Act Inh) 200-5 Mcg/Act Inh 2 Puff INH BID Folic Acid 0.8 Mg Tab 1,000 Mcg PO DAILY Levothyroxine (Levothyroxine Sodium) 50 Mcg Tab 50 Mcg PO DAILY Vitamin D-1000 (Cholecalciferol) 1,000 Unit Tab 1,000 Units PO DAILY Methotrexate 2.5 Mg Tab 2.5 Mg PO Q7D Wellbutrin Xl 24 HR (Bupropion HCl) 150 Mg Tab 150 Mg PO DAILY Wellbutrin Xl 24 HR (Bupropion HCl) 300 Mg Tab 300 Mg PO DAILY Naproxen Sodium 220 Mg Tab 300 Mg PO BID PRN Propranolol (Propranolol HCl) 60 Mg Tab 60 Mg PO Q6HR PRN Prozac (Fluoxetine HCl) 40 Mg Cap 120 Mg PO DAILY Prevacid (Lansoprazole) 30 Mg Capdr 30 Mg PO DAILY Gabapentin 600 Mg Tab 600 Mg PO HS Gabapentin 300 Mg Cap 300 Mg PO DAILY . Current Medications Medications (Trade) Dose Ordered Sig/Leon Route Start Time Stop Time Status Last Admin (Catapres) 0.1 mg Q4H PRN PO 08/07/17 16:45 (Zofran Inj) 4 mg Q6H PRN IVP 08/07/17 16:45 (Compazine Supp) 25 mg Q12H PRN RECTAL 08/07/17 16:45 (Ambien) 5 mg HS PRN PO 08/07/17 16:45 08/12/17 21:58 (Percocet 5-325 Mg) 1 tab Q6H PRN PO 08/07/17 16:45 Future Hold 08/10/17 18:32 (Percocet 10-325 Mg) 1 tab Q6H PRN PO 08/07/17 16:45 Future Hold 08/18/17 03:43 (Narcan Inj) 0.4 mg UNSCH PRN IV PUSH 08/07/17 16:45 (Dulcolax Supp) 10 mg DAILY PRN RECTAL 08/07/17 16:45 (Lactulose Liq) 30 ml DAILY PRN PO 08/07/17 16:45 (Vitamin D3) 1,000 units DAILY PO 08/08/17 09:00 08/26/17 12:29 (SINEquan) 50 mg BID PO 08/07/17 21:00 08/25/17 21:53 (Folate) 1 mg DAILY PO 08/08/17 09:00 08/25/17 08:35 (Neurontin) 300 mg DAILY PO 08/08/17 09:00 08/25/17 08:44 (Synthroid) 50 mcg DAILY PO 08/08/17 09:00 08/26/17 12:29 (Rheumatrex) 2.5 mg Q7D PO 08/13/17 09:00 Future Hold Non-Formulary Medication 2 puff BID INH 08/07/17 21:00 Future Hold 08/14/17 09:00 (Zofran Odt) 4 mg Q12HR PRN PO 08/07/17 16:45 (Inderal) 60 mg Q6HR PRN PO 08/07/17 16:45 Future Hold (Wellbutrin Sr 12 Hr) 200 mg BID PO 08/08/17 09:00 08/25/17 21:53 (PROzac) 120 mg DAILY PO 08/08/17 17:15 Future Hold 08/25/17 08:44 (NS Flush) See Protocol DAILY IV FLUSH 08/10/17 09:00 08/26/17 09:29 (NS Flush) See Protocol UNSCH PRN IV FLUSH 08/09/17 20:00 (Heparin Central Flush) See Protocol DAILY IV FLUSH 08/10/17 09:00 08/25/17 08:36 (Heparin Central Flush) See Protocol UNSCH PRN IV FLUSH 08/09/17 20:00 (NS Flush) UNSCH PRN IV FLUSH 08/09/17 20:00 (NS Flush) 2 ml UNSCH PRN IV FLUSH 08/10/17 11:15 (NS Flush) 2 ml BID IV FLUSH 08/10/17 21:00 08/26/17 09:55 (Xanax) 0.125 mg Q8HR PRN PO 08/12/17 16:30 Future Hold 08/17/17 15:23 (Apresoline) 10 mg Q6HR PRN PO 08/14/17 08:30 08/26/17 10:09 (Lovenox Inj) 80 mg Q12HR SQ 08/17/17 09:00 Future Hold 08/19/17 08:54 (Albuterol Neb) 2.5 mg Q2HR NEB PRN NEB 08/19/17 12:15 (Colace Liq) 100 mg Q12HR PO 08/19/17 21:00 08/25/17 21:50 (Senna Liq) 8.8 mg BID NG 08/19/17 21:00 08/25/17 21:53 (Reglan Inj) 5 mg Q8HR IV PUSH 08/19/17 14:00 08/26/17 12:30 (Tears Naturale Opth Soln) 1 drop Q8HR EACH EYE 08/19/17 14:00 08/26/17 12:30 (Pulmicort Respule Neb) 0.5 mg Q12HR NEB NEB 08/19/17 20:00 08/26/17 07:33 (Peridex 0.12% Liq) 15 ml BID@08,20 MT 08/19/17 20:00 08/26/17 09:29 (D50w (Vial) Inj) 50 ml UNSCH PRN IV PUSH 08/19/17 12:30 (Glucagon Inj) 1 mg UNSCH PRN OTHER 08/19/17 12:30 (NovoLIN R SUPPLEMENTAL SCALE) 1 Q6HR SQ 08/19/17 18:00 08/24/17 05:45 (SoluMEDROL INJ) 40 mg BID IV PUSH 08/19/17 21:00 08/26/17 09:55 (Neurontin) 300 mg HS PO 08/20/17 21:00 08/25/17 21:51 (Miralax) 17 gm Q12HR NG 08/21/17 21:00 08/25/17 21:50 Sodium Chloride 1,000 ml @ 0 mls/hr Q0M PRN OTHER 08/22/17 11:51 08/26/17 11:42 (Heparin Inj) 8,000 units UNSCH PRN IV FLUSH 08/22/17 12:00 Sodium Chloride 1,000 ml @ 200 mls/hr Q5H PRN IV 08/22/17 11:51 Sodium Chloride 1,000 ml @ 0 mls/hr Q0M PRN OTHER 08/22/17 11:51 (Mannitol Inj) 12.5 gm UNSCH PRN IV 08/22/17 12:00 Albumin Human 100 ml @ 60 mls/hr UNSCH PRN IV 08/22/17 12:00 08/23/17 16:26 (NS Flush) 5 ml UNSCH PRN IV FLUSH 08/22/17 12:00 (Heparin Inj) UNSCH PRN .XX 08/22/17 12:00 08/26/17 11:41 (Gentamicin (Dialysis) Inj) 20 mg UNSCH PRN OTHER 08/22/17 12:00 08/26/17 11:41 (Zofran Inj) 4 mg UNSCH PRN IV PUSH 08/22/17 12:00 (Benadryl) 25 mg UNSCH PRN PO 08/22/17 12:00 (Nitrostat Sl) 0.4 mg UNSCH PRN SL 08/22/17 12:00 (Catapres) 0.1 mg UNSCH PRN PO 08/22/17 12:00 (Gelfoam 12 Mm/7 Mm Top) 1 foam UNSCH PRN TOP 08/22/17 12:00 (NS Flush) UNSCH PRN IV FLUSH 08/22/17 12:00 (Heparin Inj) UNSCH PRN IV FLUSH 08/22/17 12:00 (Duoneb Neb) 1 ampule Q4HR NEB NEB 08/23/17 08:00 08/26/17 11:00 (Tylenol 650 Mg/ 20 ml Liq) 650 mg Q6H PRN OG-TUBE 08/23/17 07:30 08/25/17 22:00 Fentanyl Citrate 250 ml @ 5 mls/hr TITRATE PRN IV 08/23/17 07:30 08/26/17 11:22 Heparin Sodium/ Dextrose 250 ml @ 14 mls/hr TITRATE PRN IV 08/23/17 07:30 08/26/17 11:25 (Prevacid Odt) 30 mg DAILY NG 08/23/17 09:00 08/25/17 08:35 (Sodium Chloride 3% Neb) 2 ml Q4HR NEB NEB 08/23/17 08:00 08/26/17 11:00 (Robitussin Liq) 400 mg Q8HR OG-TUBE 08/23/17 14:00 08/26/17 12:30 Phenylephrine HCl 160 mg/Dextrose 500 ml @ 7.5 mls/hr TITRATE PRN IV 08/23/17 17:00 (Brethine Inj) 1 mg UNSCH PRN SQ 08/23/17 15:30 (Lopressor Inj) 5 mg Q6H PRN IV PUSH 08/25/17 12:00 10/16/17 09:55 Clindamycin Phosphate 600 mg/ Sodium Chloride 104 ml @ 208 mls/hr Q6H IV 08/25/17 16:00 08/26/17 12:25 Cefepime HCl 1000 mg/Sodium Chloride 100 ml @ 200 mls/hr Q24H IV 08/25/17 15:00 08/25/17 16:28 (Phoslo) 2,001 mg TID PO 08/26/17 13:00 08/26/17 12:29 Family History No family history of cancer or CAD Substance Use Tobacco: Smokes a few cigarettes socially, has smoked 1/2-1 PPD at times Alcohol: Drinks alcohol socially Prescription med abuse: None Illicits: None Psychosocial History Originally from [place] worked in [employer] position for the past 18 years, though recently quit her job and moved to [place] one month ago. Has 4 adult children , he children's biological father secondary to suicide 3 years ago. Patient still legally to [place] however they have been though still on speaking terms. Patient's children all live out of the area. Spiritual/Cultural Factors Believes in God but no particular zenobia family does not think she would want can cleaner visits at this time. . Durable Power of Tape Recorder Repairer: Completed, but not made available (patient may have had a POA completed in [place] that we do not have copies of this document at this time no reported living well) Ethical and Legal Issues Patient is not capacitated participate in decision-making. Not clear if or when she will regain capacity. She is still legally , per [place] statutes her would be appropriate legal proxy. Apparently earlier during this admission course this proxy wished to "sign over his rights" to one of pt's 4 adult children; however only a patient can designate a healthcare surrogate therefore the proxy cannot actually designate whom would be the legal decision maker. In This case the would in fact be the legal decision maker; unless he wishes to relinquish his rights, then legal decision making would fall to the majority of 4 adult children. . Physical Exam Vital Signs Date Time Temp Pulse Resp B/P (MAP) Pulse Ox O2 Delivery O2 Flow Rate FiO2 08/26/17 11:00 95 100 08/26/17 07:33 94 65 08/26/17 06:00 95 08/26/17 04:23 92 65 08/26/17 04:00 99 08/26/17 04:00 65 08/26/17 04:00 98.6 104 16 110/83 (92) 90 08/26/17 02:00 101 08/26/17 00:00 110 08/26/17 00:00 101.1 110 15 142/69 (93) 92 08/26/17 00:00 65 08/25/17 23:29 92 65 08/25/17 22:00 110 08/25/17 21:28 93 50 08/25/17 20:00 100.3 96 14 128/75 (92) 93 08/25/17 20:00 103 08/25/17 20:00 50 08/25/17 19:00 90 Mechanical Ventilator 45 08/25/17 18:00 99 08/25/17 16:34 94 50 08/25/17 16:00 50 08/25/17 16:00 98.8 102 16 139/66 (90) 92 08/25/17 16:00 102 08/26/17 08/27/17 19:00 07:00 Output Total 4000 ml Balance -4000 ml Hemodialysis 4000 ml Exam CONSTITUTIONAL/GENERAL: This is an adequately nourished patient, in no apparent distress, sedated on mechanical vent TUBES/LINES/DRAINS: Right IJ central line, ET tube, OG tube, rectal bag, Dee catheter, soft wrist restraints SKIN: No jaundice, rashes, or lesions. Healing incision left elbow eduar intact asymptomatic. Skin temperature appropriate. Not diaphoretic. HEAD: Atraumatic. Normocephalic. EYES: Pupils equal and round and reactive. Extraocular motions intact. No scleral icterus. No injection or drainage. Fundi not examined. ENT: Nose without bleeding or purulent drainage. Able to visualize oropharynx due to ET tube, OG tube. NECK: Trachea midline. Supple, nontender. No palpable thyroid enlargement or nodularity. CARDIOVASCULAR: Regular rate and rhythm , tachycardic at times, 100. No JVD. Peripheral pulses symmetric. RESPIRATORY/CHEST: Symmetric, mildly labored respirations. Coarse air movement throughout. Breath tones equal bilaterally. GASTROINTESTINAL: Abdomen soft, unable to assess tenderness, nondistended. No hepato-splenomegaly, or palpable masses. 2. Infusing via OG tube. Bowel sounds intermittent. GENITOURINARY: Without palpable bladder distension. Dee catheter in place scant urine output. MUSCULOSKELETAL: Extremities without clubbing, cyanosis, or edema. No joint effusion noted. No mottling or clubbing. NEUROLOGICAL: Sedated on mechanical vent. Very slight withdraw feet to pain otherwise nonresponsive. No eye opening. Pupils equal and reactive positive corneal reflex. PSYCHIATRIC: No obvious anxiety/depression--limited assessment due to sedation, clinical condition. Diagnostic Tests Laboratory Laboratory Tests Test 08/23/17 15:25 08/23/17 22:00 08/24/17 03:45 08/25/17 05:01 Activated Partial Thromboplast Time 66.1 SEC (24.3-30.1) 40.2 SEC (24.3-30.1) 61.8 SEC (24.3-30.1) White Blood Count 17.9 TH/MM3 (4.0-11.0) 15.0 TH/MM3 (4.0-11.0) Red Blood Count 2.84 MIL/MM3 (4.00-5.30) 2.77 MIL/MM3 (4.00-5.30) Hemoglobin 9.0 GM/DL (11.6-15.3) 8.9 GM/DL (11.6-15.3) Hematocrit 27.4 % (35.0-46.0) 26.5 % (35.0-46.0) Mean Corpuscular Volume 96.5 FL (80.0-100.0) 95.4 FL (80.0-100.0) Mean Corpuscular Hemoglobin 31.6 PG (27.0-34.0) 31.9 PG (27.0-34.0) Mean Corpuscular Hemoglobin Concent 32.8 % (32.0-36.0) 33.5 % (32.0-36.0) Red Cell Distribution Width 17.3 % (11.6-17.2) 16.8 % (11.6-17.2) Platelet Count 246 TH/MM3 (150-450) 253 TH/MM3 (150-450) Mean Platelet Volume 8.6 FL (7.0-11.0) 8.5 FL (7.0-11.0) Neutrophils (%) (Auto) 90.3 % (16.0-70.0) 91.4 % (16.0-70.0) Lymphocytes (%) (Auto) 3.0 % (9.0-44.0) 4.1 % (9.0-44.0) Monocytes (%) (Auto) 4.1 % (0.0-8.0) 3.4 % (0.0-8.0) Eosinophils (%) (Auto) 2.1 % (0.0-4.0) 0.6 % (0.0-4.0) Basophils (%) (Auto) 0.5 % (0.0-2.0) 0.5 % (0.0-2.0) Neutrophils # (Auto) 16.2 TH/MM3 (1.8-7.7) 13.7 TH/MM3 (1.8-7.7) Lymphocytes # (Auto) 0.5 TH/MM3 (1.0-4.8) 0.6 TH/MM3 (1.0-4.8) Monocytes # (Auto) 0.7 TH/MM3 (0-0.9) 0.5 TH/MM3 (0-0.9) Eosinophils # (Auto) 0.4 TH/MM3 (0-0.4) 0.1 TH/MM3 (0-0.4) Basophils # (Auto) 0.1 TH/MM3 (0-0.2) 0.1 TH/MM3 (0-0.2) CBC Comment AUTO DIFF AUTO DIFF Differential Total Cells Counted 100 100 Neutrophils % (Manual) 74 % (16-70) 83 % (16-70) Band Neutrophils % 8 % (0-6) 2 % (0-6) Lymphocytes % 3 % (9-44) 6 % (9-44) Monocytes % 4 % (0-8) 3 % (0-8) Eosinophils % 3 % (0-4) 1 % (0-4) Basophils % 1 % (0-2) Neutrophils # (Manual) 15.9 TH/MM3 (1.8-7.7) 13.5 TH/MM3 (1.8-7.7) Metamyelocytes 3 % (0-1) 2 % (0-1) Myelocytes 3 % (0-0) 3 % (0-0) Promyelocytes 1 % (0-0) Differential Comment FINAL DIFF MANUAL FINAL DIFF MANUAL Dohle Bodies PRESENT (NONE SEEN) Platelet Estimate NORMAL (NORMAL) NORMAL (NORMAL) Platelet Morphology Comment NORMAL (NORMAL) NORMAL (NORMAL) Blood Urea Nitrogen 84 MG/DL (7-18) 112 MG/DL (7-18) Creatinine 4.75 MG/DL (0.50-1.00) 6.55 MG/DL (0.50-1.00) Random Glucose 153 MG/DL (74-106) 165 MG/DL (74-106) Albumin 2.2 GM/DL (3.4-5.0) 2.1 GM/DL (3.4-5.0) Calcium Level 8.4 MG/DL (8.5-10.1) 8.5 MG/DL (8.5-10.1) Phosphorus Level 6.4 MG/DL (2.5-4.9) 8.8 MG/DL (2.5-4.9) Sodium Level 136 MEQ/L (136-145) 133 MEQ/L (136-145) Potassium Level 4.6 MEQ/L (3.5-5.1) 4.3 MEQ/L (3.5-5.1) Chloride Level 98 MEQ/L (98-107) 90 MEQ/L (98-107) Carbon Dioxide Level 25.0 MEQ/L (21.0-32.0) 26.9 MEQ/L (21.0-32.0) Anion Gap 13 MEQ/L (5-15) 16 MEQ/L (5-15) Estimat Glomerular Filtration Rate 9 ML/MIN (>89) 7 ML/MIN (>89) Nucleated Red Blood Cells 1 /100 WBC (0-0) Red Cell Morphology Comment NORMAL (NORMAL) Test 08/25/17 06:30 08/25/17 16:45 08/26/17 00:52 08/26/17 05:31 Activated Partial Thromboplast Time 88.2 SEC (24.3-30.1) 65.8 SEC (24.3-30.1) 68.9 SEC (24.3-30.1) 111.8 SEC (24.3-30.1) White Blood Count 13.9 TH/MM3 (4.0-11.0) Red Blood Count 2.79 MIL/MM3 (4.00-5.30) Hemoglobin 8.9 GM/DL (11.6-15.3) Hematocrit 26.6 % (35.0-46.0) Mean Corpuscular Volume 95.1 FL (80.0-100.0) Mean Corpuscular Hemoglobin 31.7 PG (27.0-34.0) Mean Corpuscular Hemoglobin Concent 33.3 % (32.0-36.0) Red Cell Distribution Width 16.5 % (11.6-17.2) Platelet Count 243 TH/MM3 (150-450) Mean Platelet Volume 8.4 FL (7.0-11.0) Neutrophils (%) (Auto) 90.7 % (16.0-70.0) Lymphocytes (%) (Auto) 3.5 % (9.0-44.0) Monocytes (%) (Auto) 4.9 % (0.0-8.0) Eosinophils (%) (Auto) 0.4 % (0.0-4.0) Basophils (%) (Auto) 0.5 % (0.0-2.0) Neutrophils # (Auto) 12.6 TH/MM3 (1.8-7.7) Lymphocytes # (Auto) 0.5 TH/MM3 (1.0-4.8) Monocytes # (Auto) 0.7 TH/MM3 (0-0.9) Eosinophils # (Auto) 0.1 TH/MM3 (0-0.4) Basophils # (Auto) 0.1 TH/MM3 (0-0.2) CBC Comment AUTO DIFF Differential Total Cells Counted 100 Neutrophils % (Manual) 82 % (16-70) Band Neutrophils % 5 % (0-6) Lymphocytes % 4 % (9-44) Monocytes % 6 % (0-8) Basophils % 2 % (0-2) Neutrophils # (Manual) 12.2 TH/MM3 (1.8-7.7) Myelocytes 1 % (0-0) Differential Comment FINAL DIFF MANUAL Platelet Estimate NORMAL (NORMAL) Platelet Morphology Comment NORMAL (NORMAL) Red Cell Morphology Comment NORMAL (NORMAL) Blood Urea Nitrogen 132 MG/DL (7-18) Creatinine 8.11 MG/DL (0.50-1.00) Random Glucose 109 MG/DL (74-106) Albumin 2.1 GM/DL (3.4-5.0) Calcium Level 8.2 MG/DL (8.5-10.1) Phosphorus Level 12.7 MG/DL (2.5-4.9) Magnesium Level 2.2 MG/DL (1.5-2.5) Sodium Level 133 MEQ/L (136-145) Potassium Level 5.1 MEQ/L (3.5-5.1) Chloride Level 89 MEQ/L (98-107) Carbon Dioxide Level 23.9 MEQ/L (21.0-32.0) Anion Gap 20 MEQ/L (5-15) Estimat Glomerular Filtration Rate 5 ML/MIN (>89) Test 08/26/17 06:30 Activated Partial Thromboplast Time 76.5 SEC (24.3-30.1) Result Diagram: 08/26/17 0531 08/26/17 0531 Microbiology Microbiology Date/Time Source Procedure Growth Status 08/23/17 09:11 Blood Peripheral Aerobic Blood Culture - Preliminary NO GROWTH IN 3 DAYS Resulted 08/23/17 09:11 Blood Peripheral Anaerobic Blood Culture - Preliminary NO GROWTH IN 3 DAYS Resulted 08/23/17 08:25 Sputum Endotracheal Gram Stain - Final Complete 08/23/17 08:25 Sputum Endotracheal Sputum Culture - Final HEAVY GROWTH NORMAL RESPIRATORY OLMAN Complete 08/23/17 08:25 Urine Catheterized Urine Urine Culture - Final Estela Albicans Complete 08/07/17 19:48 Wound Elbow Fungal Smear - Final NO FUNGAL ELEMENTS SEEN. Resulted 08/07/17 19:48 Wound Elbow Fungal Culture - Preliminary NO GROWTH IN 2 WEEKS Resulted Imaging Last Impressions Chest X-Ray 08/26/17 0600 Signed Impressions: Service Date/Time: Saturday, August 26, 2017 04:53 - CONCLUSION: 1. Patchy alveolar disease characteristic of edema or pneumonia. There has been no significant change when compared to the prior exam. Ranjit Espinal MD Abdomen/Pelvis CT 08/20/17 0000 Signed Impressions: Service Date/Time: Sunday, August 20, 2017 17:12 - CONCLUSION: 1. No evidence of discrete renal mass however there is decreased sensitivity without the use of contrast. 2. Minimal left perinephric stranding or fluid. 3. No evidence of hydronephrosis, nephrolithiasis or retroperitoneal hematoma. 4. Status post cholecystectomy. 5. Extensive lung infiltration. Mitesh Rojas MD Renal Ultrasound 08/19/17 0000 Signed Impressions: Service Date/Time: Saturday, August 19, 2017 13:50 - CONCLUSION: 1. Mildly increased renal cortical echogenicity consistent with medical renal disease. 2. Questionable minimally hyperechoic solid mass in the mid left kidney measuring 1.2 x 1.4 1.0 cm. Further evaluation may be performed with CT or MRI renal mass protocol on an outpatient basis. Jovi Loaiza MD Upper Extremity Ultrasound 08/16/17 0000 Signed Impressions: Service Date/Time: Wednesday, August 16, 2017 13:39 - CONCLUSION: Extensive right upper extremity DVT Cleve Barnett MD Chest CT 08/10/17 0000 Signed Impressions: Service Date/Time: Thursday, August 10, 2017 17:36 - CONCLUSION: 1. Upper lobe predominant central emphysema with upper lobe predominant diffuse interstitial and groundglass opacities. Differential considerations include developing ARDS, atypical infection, pulmonary edema, sarcoidosis, and drug induced lung disease amongst other etiologies. 2. Trace right pleural effusion. Jovi Loaiza MD Elbow X-Ray 08/07/17 0000 Signed Impressions: Service Date/Time: Monday, August 07, 2017 13:12 - CONCLUSION: Joint effusion, no fracture Naveed Sage MD FACR Elbow MRI 08/07/17 0000 Signed Impressions: Service Date/Time: Monday, August 07, 2017 14:11 - CONCLUSION: Presumed inflammatory process mainly involving the brachialis. The joint is suspected to be infected as well. There is no osteomyelitis as yet. Neurovascular bundle is displaced medially there are brachial bifurcation findings have been discussed with Latosha FRANCOIS on today's date. Naveed Sage MD FACR Patient/Family Conference Present at Family Conference: Son Ward Arauz, Naif, daughter Blessing, brother Nahun, spouse Haider . Family Conference Time (mins): 55 (minutes) Family Conference Location: Consult Room Issues Discussed: Met with family at length, discussion included the following: * Palliative care role, purpose, approach * Additional medical, psychosocial, and spiritual history * Patients general health, functional status, and cognitive changes in the months leading up to the current hospitalization * Patient/family understanding of the current medical problems--review of treatments in place likely trajectory going forward, likely prolonged hospitalization requiring tracheostomy, PEG tube, and if survives won't likely require rehabilitation placement not clear if she would be able to return home to independent living depending on location/setbacks encountered along * Patient/family understanding of prognosis * Extensive review of [place] statutes and hierarchy of legal decision makers * Patients goals of care as best understood from advance directives and/or conversations and/or values * Current medical treatment options and benefits/burdens of those options * Likely scenarios comparing ongoing aggressive care with a transition to comfort measures only--brief exploration of alternatives continued aggressive measures would be de-escalation in transition to comfort focus * Review of CODE STATUS and what CPR and resuscitation entails, limits, benefits -- HI to make further decisions once they have clarified legal decision maker * Questions answered to the best of my ability * Palliative care contact information provided At this time family is still deciding who would serve as legal decision maker. Patient's spouse would by law be appropriate legal decision maker he cannot relinquish this role to one specific adult child. If he relinquishes that role then ALL children may serve as decision makers if they wish, with decisions following to the majority. Haider (spouse) is talking with family, as though he and pt were , they were still in communication and on fairly good terms. They will decide who will be appropriate legal decision maker. Right now they are all voicing the patient probably would not want a tracheostomy and would not want to have any type of prolonged hospitalization, and they verbalize considering transition to comfort. One son Naif indicates that he does not know the patient well as he had not seen her in many years and might relinquish his decision making to his siblings though again they have not established anything for certain yet. Further decisions pending decision-maker status. . All questions answered, palliative contact information provided. Assessment and Plan Disease Oriented Problem List: (1) Acute respiratory failure with hypoxia (2) Acute renal failure (3) Joint infection (4) Anemia (5) Depression (6) MRSA (methicillin resistant staph aureus) culture positive (7) ROLAND (acute kidney injury) (8) Septic arthritis of elbow, left Symptom Scale: (1) Dyspnea (2) Malnutrition (3) Pain Pertinent Non-Medical Issues Psychosocial:Originally from [place] worked in [employer] position for the past 18 years, though recently quit her job and moved to [place] one month ago. Has 4 adult children, he children's biological father secondary to suicide 3 years ago. Patient still legally to [employer] however they have been though still on speaking terms. Patient's children all live out of the area. Spiritual:Believes in God but no particular zenobia family does not think she would want can cleaner visits at this time. Legal:Patient is not capacitated participate in decision-making. Not clear if or when she will regain capacity. She is still legally , per [place] statutes her would be appropriate legal proxy. Apparently earlier during this admission course this proxy wished to "sign over his rights" to one of pt's 4 adult children; however only a patient can designate a healthcare surrogate therefore the proxy cannot actually designate whom would be the legal decision maker. In This case the would in fact be the legal decision maker; unless he wishes to relinquish his rights, then legal decision making would fall to the majority of 4 adult children Ethical issues impacting care: Important Contacts spouse Haider Hollingsworth [phone] Adult daughter Dimas Hollingsworth -- Adult son Davonte Hollingsworth [phone] Adult son Nahun Hollingsworth [phone] Adult son Naif Hollingsworth [phone] Patient brother Nahun [phone] . Prognosis This patient was admitted with sepsis to the elbow joint-she required I&D. She subsequently has developed acute respiratory failure, acute kidney failure, and is currently experiencing GI motility issues. We'll. She likely had severe/ advanced underlying lung disease. Prognosis for full recovery is poor, possible she may survive current hospitalization with ongoing hospitalization requiring tracheostomy and PEG Code Status: Full Code Plan * Legal decision maker: Patient is not capacitated participate in decision- making. Not clear if or when she will regain capacity. She is still legally , per [place] statutes her Haider would be appropriate legal proxy. Apparently earlier during this admission course this proxy wished to "sign over his rights" to one of pt's 4 adult children; however only a patient can designate a healthcare surrogate therefore the proxy cannot actually designate whom would be the legal decision maker. In This case the would in fact be the legal decision maker; unless he wishes to relinquish his rights, then legal decision making would fall to the majority of ALL 4 adult children who wish to participate * Goals: TBD-- family discussing amongst themselves/spouse to determine WHO will be decision maker, and then decisions. At this time they are all leaning towards not proceeding with tracheostomy and PEG tube. * CODE STATUS:FULL CODE * SYMPTOMS: --Dyspnea- emergently intubated 08/14, CT chest indicative of severe interstitial lung process, fibrosis. Patient not tolerating ventilator weaning thus far will likely require tracheostomy for ongoing ventilator support if goals are aggressive; early breathing comfortable with fentanyl drip for sedation --Malnutrition-albumin on admission was low at 2.5 remains low during this course. Currently with some high residuals and receiving low rate tube feed 10 mL's an hour. Some diarrhea stool negative for C. difficile. Will likely require PEG tube for long-term artificial nutrition. --Pain-chronic, patient with RA utilize naproxen outpatient for, with usually good control, in addition to her recently with arm injury with severe pain though currently appears comfortable on fentanyl drip. * Palliative care will continue to follow during hospital course as condition evolves, to assist patient/decision-maker with understanding of medical conditions, weighing benefits/burdens of treatment options, for clarification of goals of treatment. Additionally will assist with any symptoms of palliative concern . Time Spent Total Floor Time (mins): 95 (spoke at length with critical care, primary nurse , family, thorough review of chart and PE) Thank you for the opportunity to participate in the care of Ms. Hollingsworth. Attestation To help prompt me to consider important information that might be impacting today's encounter and assessment, information from prior notes written by myself or my colleagues may have been "brought forward" into today's note. My signature on this note, however, is an attestation that I personally performed the exam, history, and/or decision-making noted today, and, unless otherwise indicated, the interactions with patient, family, and staff as well as the review of records all occurred today. I also attest that the listed assessment and stated plan reflect my best clinical judgment today based on the combination of historical information, prior notes, and today's exam/ interactions. When time spent is documented, it refers only to time spent today by the signer, or if indicated, combined time spent today by collaborating physician/nurse practitioner. Ciera Morales Aug 26, 2017 14:54
--- NOTE | 2017-08-26 15:22 | HHI.IDPN ---
Subjective Subjective Remarks doing poorly fever up to 101 Remains on vent 100 % this am, now down to 80% Remains in opliguric ARF Antibiotics cefepime clindamycin Allergies: Coded Allergies: No Known Allergies (Unverified , 08/07/17) Objective . Vital Signs Date Time Temp Pulse Resp B/P (MAP) Pulse Ox O2 Delivery O2 Flow Rate FiO2 08/26/17 14:43 92 75 08/26/17 14:40 95 Mechanical Ventilator 75 08/26/17 12:00 94 Mechanical Ventilator 80 08/26/17 11:00 95 100 08/26/17 09:30 89 Mechanical Ventilator 100 08/26/17 07:33 94 65 08/26/17 07:00 93 Mechanical Ventilator 65 08/26/17 06:00 95 08/26/17 04:23 92 65 08/26/17 04:00 99 08/26/17 04:00 65 08/26/17 04:00 98.6 104 16 110/83 (92) 90 08/26/17 02:00 101 08/26/17 00:00 110 08/26/17 00:00 101.1 110 15 142/69 (93) 92 08/26/17 00:00 65 08/25/17 23:29 92 65 08/25/17 22:00 110 08/25/17 21:28 93 50 08/25/17 20:00 100.3 96 14 128/75 (92) 93 08/25/17 20:00 103 08/25/17 20:00 50 08/25/17 19:00 90 Mechanical Ventilator 45 08/25/17 18:00 99 08/25/17 16:34 94 50 08/25/17 16:00 50 08/25/17 16:00 98.8 102 16 139/66 (90) 92 08/25/17 16:00 102 08/26/17 08/26/17 08/27/17 14:59 22:59 06:59 Intake Total 170 ml Output Total 5150.0 ml Balance -4980.0 ml Other 170 ml Gastric Drainage Total 575 ml Tube Feeding Residual Discard 575.0 ml Hemodialysis 4000 ml . Laboratory Tests Test 08/25/17 05:01 08/26/17 05:31 White Blood Count 15.0 TH/MM3 13.9 TH/MM3 Red Blood Count 2.77 MIL/MM3 2.79 MIL/MM3 Hemoglobin 8.9 GM/DL 8.9 GM/DL Hematocrit 26.5 % 26.6 % Mean Corpuscular Volume 95.4 FL 95.1 FL Mean Corpuscular Hemoglobin 31.9 PG 31.7 PG Mean Corpuscular Hemoglobin Concent 33.5 % 33.3 % Red Cell Distribution Width 16.8 % 16.5 % Platelet Count 253 TH/MM3 243 TH/MM3 Mean Platelet Volume 8.5 FL 8.4 FL Neutrophils (%) (Auto) 91.4 % 90.7 % Lymphocytes (%) (Auto) 4.1 % 3.5 % Monocytes (%) (Auto) 3.4 % 4.9 % Eosinophils (%) (Auto) 0.6 % 0.4 % Basophils (%) (Auto) 0.5 % 0.5 % Neutrophils # (Auto) 13.7 TH/MM3 12.6 TH/MM3 Lymphocytes # (Auto) 0.6 TH/MM3 0.5 TH/MM3 Monocytes # (Auto) 0.5 TH/MM3 0.7 TH/MM3 Eosinophils # (Auto) 0.1 TH/MM3 0.1 TH/MM3 Basophils # (Auto) 0.1 TH/MM3 0.1 TH/MM3 CBC Comment AUTO DIFF AUTO DIFF Differential Total Cells Counted 100 100 Neutrophils % (Manual) 83 % 82 % Band Neutrophils % 2 % 5 % Lymphocytes % 6 % 4 % Monocytes % 3 % 6 % Eosinophils % 1 % Neutrophils # (Manual) 13.5 TH/MM3 12.2 TH/MM3 Metamyelocytes 2 % Myelocytes 3 % 1 % Nucleated Red Blood Cells 1 /100 WBC Differential Comment FINAL DIFF MANUAL FINAL DIFF MANUAL Platelet Estimate NORMAL NORMAL Platelet Morphology Comment NORMAL NORMAL Red Cell Morphology Comment NORMAL NORMAL Basophils % 2 % Laboratory Tests Test 08/25/17 05:01 08/26/17 05:31 Blood Urea Nitrogen 112 MG/DL 132 MG/DL Creatinine 6.55 MG/DL 8.11 MG/DL Random Glucose 165 MG/DL 109 MG/DL Albumin 2.1 GM/DL 2.1 GM/DL Calcium Level 8.5 MG/DL 8.2 MG/DL Phosphorus Level 8.8 MG/DL 12.7 MG/DL Sodium Level 133 MEQ/L 133 MEQ/L Potassium Level 4.3 MEQ/L 5.1 MEQ/L Chloride Level 90 MEQ/L 89 MEQ/L Carbon Dioxide Level 26.9 MEQ/L 23.9 MEQ/L Anion Gap 16 MEQ/L 20 MEQ/L Estimat Glomerular Filtration Rate 7 ML/MIN 5 ML/MIN Magnesium Level 2.2 MG/DL Imaging Last Impressions Chest X-Ray 08/26/17 0600 Signed Impressions: Service Date/Time: Saturday, August 26, 2017 04:53 - CONCLUSION: 1. Patchy alveolar disease characteristic of edema or pneumonia. There has been no significant change when compared to the prior exam. Ranjit Espinal MD Abdomen/Pelvis CT 08/20/17 0000 Signed Impressions: Service Date/Time: Sunday, August 20, 2017 17:12 - CONCLUSION: 1. No evidence of discrete renal mass however there is decreased sensitivity without the use of contrast. 2. Minimal left perinephric stranding or fluid. 3. No evidence of hydronephrosis, nephrolithiasis or retroperitoneal hematoma. 4. Status post cholecystectomy. 5. Extensive lung infiltration. Mitesh Rojas MD Renal Ultrasound 08/19/17 0000 Signed Impressions: Service Date/Time: Saturday, August 19, 2017 13:50 - CONCLUSION: 1. Mildly increased renal cortical echogenicity consistent with medical renal disease. 2. Questionable minimally hyperechoic solid mass in the mid left kidney measuring 1.2 x 1.4 1.0 cm. Further evaluation may be performed with CT or MRI renal mass protocol on an outpatient basis. Jovi Loaiza MD Upper Extremity Ultrasound 08/16/17 0000 Signed Impressions: Service Date/Time: Wednesday, August 16, 2017 13:39 - CONCLUSION: Extensive right upper extremity DVT Cleve Barnett MD Chest CT 08/10/17 0000 Signed Impressions: Service Date/Time: Thursday, August 10, 2017 17:36 - CONCLUSION: 1. Upper lobe predominant central emphysema with upper lobe predominant diffuse interstitial and groundglass opacities. Differential considerations include developing ARDS, atypical infection, pulmonary edema, sarcoidosis, and drug induced lung disease amongst other etiologies. 2. Trace right pleural effusion. Jovi Loaiza MD Elbow X-Ray 08/07/17 0000 Signed Impressions: Service Date/Time: Monday, August 07, 2017 13:12 - CONCLUSION: Joint effusion, no fracture Naveed Sage MD FACR Elbow MRI 08/07/17 0000 Signed Impressions: Service Date/Time: Monday, August 07, 2017 14:11 - CONCLUSION: Presumed inflammatory process mainly involving the brachialis. The joint is suspected to be infected as well. There is no osteomyelitis as yet. Neurovascular bundle is displaced medially there are brachial bifurcation findings have been discussed with Latosha FRANCOIS on today's date. Naveed Sage MD FACR Physical Exam CONSTITUTIONAL/GENERAL: This is an adequately nourished patient, + increased resp effort TUBES/LINES/DRAINS: SKIN: No jaundice, rashes, or lesions. CARDIOVASCULAR: Regular rate and rhythm without murmurs, gallops, or rubs. RESPIRATORY/CHEST: Symmetric, tachypneic decreased BS b/l, + diffuse rhonchi GASTROINTESTINAL: Abdomen soft, non-tender, mildly distended. MUSCULOSKELETAL: Extremities without clubbing, cyanosis, RUE with persistant prominent non pitting edema. No change LUE with very clean healing incision w/o erythema or edema BLE with some edema today , no erythema : se[place] iplace with somewhat cloudy urine NEUROLOGICAL: sedated, unresponsive PSYCHIATRIC: unable to assess Assessment & Plan Remarks Assessment and Plan Septic arthitis L elbow with deep abscess L brachialis muscle, MRSA sp I+D - healed, no e/o ongoing infx Acute VDRF - PNA vs non ifectious pneumonitis -not favoring PNA, more likely chronic intersitial lung disaes with advanced chronic resp failure interstitial and groundglass opacities Severe leukocytosis RA, on Humira RUE DVT Low grade fever ? from DVT - improved Low compliment levels - pt with underlying CTD Worsening AFR vancomycin stopped - no eosinophils ? UTI - UA abn, clx negative, but CT with stranding Pt is critically ill , very unstable from resp standpoint Hemoptysis, sp BAL, clx negative Worsening creatinine, going on HD New fever and worsening leukocytos PNA, new ? - icreasing secretions Funguria - doubt clin significance Poor prognosis, palliative care is involved Rec's: -cont cefepime - cont clindamycin for her septic L elbow artthritis - Marilyn Fabian MD Aug 26, 2017 15:21
--- NOTE | 2017-08-26 17:01 | HHI.CCPN ---
Subjective Remarks/Hospital Course 57-year-old white female with a history of a longstanding COPD and rheumatoid arthritis and fibromyalgia, was admitted with pain and swelling of the left elbow. The patient apparently was out of town and tripped and fell on her elbow injuring the elbow and requiring sutures for a laceration. Subsequently she developed swelling and redness and cellulitis and the patient was then brought to the ER where she was noted to have cellulitis with an abscessed area and now was seen by orthopedics and placed on antibiotic coverage for soft tissue infection with a joint abscess. She also was hypoxic upon admission and has been placed on oxygen via nasal cannula at 3 liters and she does have a cough and her chest x-ray that was done showed acute pulmonary infiltrates. Today she was in severe respiratory distress on the [facility] floor and the rapid response was called. She was transferred immediately to ICU and was intubated shortly after arrival due to severe respiratory distress and hypoxemia. 08/15: Gas exchange impaired, diffuse infiltrates persist. 08/16: Gas exchange remains markedly impaired. We are in for a long haul on the ventilator. 08/17: Gas exchange remains markedly impaired, PEEP 10 elevated FiO2. Diffuse interstitial infiltrates persist (On home oxygen). Extensive right arm and shoulder region DVT. 08/18: Converted to APRV for persistent hypoxemia. Leukocytosis persists. 08/19: A-aO2 gradient gradually improving. Family has reasonable concerns about the length of time she will require mechanical ventilation. They are at odds with each other about the terms defined in her advanced directive. I have asked them to bring the document to us. At this point the patient is gradually improving and will undergo spontaneous breathing trials within a day or two. 08/19: Tmax 100.2. Switched over to PRVC ventilation today. Will check ABG this afternoon. Not tolerating tube feeds currently at 20 cc an hour. 2 BMs yesterday documented. Arousable and follows commands on sedation vacation. 08/20: Yesterday, brought for hemoptysis. Suction trauma noted in the left main bronchus. Status post cold saline/sodium bicarbonate. Hemoglobin dropped from 9.8-7.1. No obvious source of bleeding. Denies abdominal pain. CT abdomen/pelvis pending. Rule out retroperitoneal bleed. Tolerating tube feeding. Hemolysis workup in process. Also noted, creatinine currently elevated at 3.3. Urine eosinophils were yesterday not performed. RN notified. Will do stat. Renal ultrasound revealed medical renal disease, left renal mass. 08/21: Afebrile. Creatinine is increased to 4.5. Urine output has increased however. Currently on PSV trial per pulmonology. CT abdomen/post revealed no retroperitoneal hematoma. Being transfused 2 units PRBCs today. 08/22: Resting comfortably in bed in no acute distress. Arousable falls commands. FiO2 at 50%. PEEP 10- 8. Will not attempt PSV trials today. Will need hemodialysis. 08/23: Increased secretions noted. Patient will be pancultured. Status post hemodialysis yesterday. Tolerating tube feeding. Positive bowel movement. 08/24: PEEP down to 8. Currently just on a fentanyl drip and appears comfortable. Hypotension overnight resolved. High residuals on tube feedings. Positive BM. 08/25: TMax 100.2 Patient RASS -1, nodding yes and no to questions and mouthing words, currently requesting to be extubated. Patient noted to be tachycardic heart rate in the low 100s. Continued TF residuals of 500 cc. Subjective 08/26: no improvements. remains on high fio2 without significant vent improvements. Cr significantly worse. multiple organs are failing. palliative care involved. Objective Vital Signs Date Time Temp Pulse Resp B/P (MAP) Pulse Ox O2 Delivery O2 Flow Rate FiO2 08/26/17 16:00 100.8 105 22 124/59 (80) 98 08/26/17 16:00 70 08/26/17 14:40 Mechanical Ventilator Intake and Output 08/26/17 08/26/17 08/27/17 08:00 16:00 00:00 Intake Total 750 ml 170 ml Output Total 1050.0 ml 4350.0 ml Balance -300.0 ml -4180.0 ml Result Diagram: 08/26/17 0531 08/26/17 0531 Imaging Last Impressions Chest X-Ray 08/23/17 0000 Signed Impressions: Service Date/Time: Wednesday, August 23, 2017 01:34 - CONCLUSION: 1. Support apparatus in satisfactory position. Bilateral patchy airspace disease. No significant effusion. Jarrett Keenan MD Abdomen/Pelvis CT 08/20/17 0000 Signed Impressions: Service Date/Time: Sunday, August 20, 2017 17:12 - CONCLUSION: 1. No evidence of discrete renal mass however there is decreased sensitivity without the use of contrast. 2. Minimal left perinephric stranding or fluid. 3. No evidence of hydronephrosis, nephrolithiasis or retroperitoneal hematoma. 4. Status post cholecystectomy. 5. Extensive lung infiltration. Mitesh Rojas MD Renal Ultrasound 08/19/17 0000 Signed Impressions: Service Date/Time: Saturday, August 19, 2017 13:50 - CONCLUSION: 1. Mildly increased renal cortical echogenicity consistent with medical renal disease. 2. Questionable minimally hyperechoic solid mass in the mid left kidney measuring 1.2 x 1.4 1.0 cm. Further evaluation may be performed with CT or MRI renal mass protocol on an outpatient basis. Jovi Loaiza MD Upper Extremity Ultrasound 08/16/17 0000 Signed Impressions: Service Date/Time: Wednesday, August 16, 2017 13:39 - CONCLUSION: Extensive right upper extremity DVT Cleve Barnett MD Chest CT 08/10/17 0000 Signed Impressions: Service Date/Time: Thursday, August 10, 2017 17:36 - CONCLUSION: 1. Upper lobe predominant central emphysema with upper lobe predominant diffuse interstitial and groundglass opacities. Differential considerations include developing ARDS, atypical infection, pulmonary edema, sarcoidosis, and drug induced lung disease amongst other etiologies. 2. Trace right pleural effusion. Jovi Loaiza MD Elbow X-Ray 08/07/17 0000 Signed Impressions: Service Date/Time: Monday, August 07, 2017 13:12 - CONCLUSION: Joint effusion, no fracture Naveed Sage MD FACR Elbow MRI 08/07/17 0000 Signed Impressions: Service Date/Time: Monday, August 07, 2017 14:11 - CONCLUSION: Presumed inflammatory process mainly involving the brachialis. The joint is suspected to be infected as well. There is no osteomyelitis as yet. Neurovascular bundle is displaced medially there are brachial bifurcation findings have been discussed with Latosha FRANCOIS on today's date. Naveed Sage MD FACR Objective Remarks GENERAL: 57-year-old female, critically ill currently orotracheally intubated, awake nodding to questions SKIN: Warm and dry. No rash HEAD: Normocephalic. EYES: No scleral icterus. No injection or drainage. NECK: Supple, trachea midline. Orally intubated. CARDIOVASCULAR: RRR. RESPIRATORY: Coarse crackles appreciated throughout lung cabrera. No wheezing. GASTROINTESTINAL: Abdomen soft, non-tender, nondistended. BS active. MUSCULOSKELETAL: Status post excision and drainage of left elbow. Incision clean, dry. Right upper extremity edema 2+ NEURO EXAM: Moves 4 limbs. WENDY. Opens eyes. Follows simple commands. A/P Assessment and Plan Neuro/Psych: Fibromyalgia Depression/anxiety Chronic pain syndrome Patient is currently on fentanyl drip at 100 g for from an for analgesia while intubated Goal of RASS -2 to 0 Daily sedation vacation Continue doxepin 50 milligrams twice a day, fluoxetine 120 mg daily and bupropion 200 mg by mouth twice a day for depression/anxiety Continue gabapentin 300 mg morning and decreased from 600 mg to 300mg at night CV: Sinus tachycardia Patient is currently hemodynamic stable and not requiring vasopressors and/or antihypertensives PRN metoprolol to medication regimen Resp: Acute hypoxemic respiratory failure secondary due to ILD/COPD Hemoptysis PC/AC rate 14. Inspiratory pressure 16. PEEP 8. Inspiratory time 2.0. FiO2 45% Ventilator bundle Albuterol/ipratropium aerosols every 4 hours with albuterol aerosols every 2 hours when necessary dyspnea Add budesonide aerosols 0.5 mg/2 mL one inhalation twice a day And 3% hypertonic saline aerosols every 4 hours for thinning secretions Already guaifenesin 400 every 8 hours Methylprednisolone 40 mg IV 2 times a day will be continued Dr. Lisa Ibarra - pulmonology is following Chest x-ray 08/20 revealed pulmonary fibrosis as interstitial lung disease without focal pneumothorax. Repeat after bronchoscopy revealed pulmonary edema? Status post bronchoscopy 08/20 for hemoptysis. There was some suction trauma with cessation of bleeding with cold saline/sodium bicarbonate GI: Goals Nepro 50 cc an hour, currently at 10 cc an hour Lansoprazole 30 cc daily GI prophylaxis Docusate sodium 200 mg twice a day/senna liquid 8.6 mg twice a day for bowel regimen and propylene glycol 17 g twice a day Currently on metoclopramide 5 mg IV every 8 hours for prokinetic bowel activity : Dee catheter has been placed for accurate I's and O's in a critically ill patient Endo: Hypothyroidism Continue levothyroxine 50 mcg daily Sliding-scale insulin with Accu-Cheks to maintain euglycemia/medium regimen of Novulin R while on steroids Rheum: RA Currently holding methotrexate 2.5 mg weekly. Likely resume when clinically indicated I discussed w/ Dr. Moya. . Would not resume at the present time. Awaiting records from [facility] regarding underlying rheumatological disease. Rheumatoid factor negative here. Complements both low. Possible post infectious disease Continue folic acid 1 mg by mouth daily Renal: Acute kidney injury Left renal mass Vancomycin discontinued per infectious disease Negative urine eosinophil/creatinine and sodium reveal intrinsic renal disease Hemodialysis yesterday per nephrology Gated C3 and C4 both are low. Rheumatoid factor negative. Renal ultrasound revealed medical renal disease with cortical thickening. Left renal mass 1.2 x 1.[address] did not reveal any evidence of mass.. This is a chronic issue with this patient according to family. Nephrology consultation. Dr. Moya Heme: Leukocytosis Macrocytic anemia Right upper extremity DVT Monitor CBC daily. Follow trends Ultrasound reveals nonocclusive thrombus right subclavian/axillary and occlusive thrombus radial/cephalic 08/20 held enoxaparin 80 mg subcutaneous twice a day in light of hemoptysis. Initiate heparin drip 08/23. 08/20 CT abdomen/pelvis ruled out retroperitoneal hematoma ID: MRSA left elbow Piperacillin/tazobactam and linezolid day #2 Vancomycin discontinued 08/19. Cefepime discontinued 08/20. Levofloxacin and clindamycin discontinued 08/23 Bronchoscopy cultures 08/19 no growth today. Blood cultures 2, urine and sputum today 08/23 FEN: Hyperphosphatemia Replace electrolytes as clinically indicated Continue calcium acetate 1334 mg by mouth 3 times a day MSK: Status post ORIF left septic elbow 07/28 - MRSA Long-term antibiotics per infectious disease Access - Right IJ CVL - Left IJ hemodialysis catheter placed 08/22. Prophylaxis - GI - lansoprazole - DVT - SCD/heparin drip Palliative care involved and family meeting today. prognosis poor with no improvement for days. Neftali Canela MD Aug 26, 2017 17:01
[2017-08-26] MEDS: CEFEPIME INJ 1,000 MG in SODIUM CHLORIDE 0.9% INJ 100 ML IV SCH (17:11)
--- NOTE | 2017-08-26 19:36 | HHI.PR ---
Subjective Remarks Remains Intubated and on Vent support , critical and on FIO2 at 80 %.On A/ C rate 16 Remains .Sedated. opens eyes . On Dialysis now. CXR shows Bilateral infiltrates. Objective Vital Signs Date Time Temp Pulse Resp B/P (MAP) Pulse Ox O2 Delivery O2 Flow Rate FiO2 08/26/17 18:00 102 08/26/17 16:00 100.8 105 22 124/59 (80) 98 08/26/17 16:00 105 08/26/17 16:00 70 08/26/17 14:43 92 75 08/26/17 14:40 95 Mechanical Ventilator 75 08/26/17 14:00 105 08/26/17 13:00 75 08/26/17 12:00 94 Mechanical Ventilator 80 08/26/17 12:00 80 08/26/17 12:00 99.2 111 25 153/73 (99) 94 08/26/17 12:00 111 08/26/17 11:00 95 100 08/26/17 10:00 93 08/26/17 09:30 89 Mechanical Ventilator 100 08/26/17 09:30 100 08/26/17 08:00 65 08/26/17 08:00 98.0 99 15 150/59 (89) 93 08/26/17 08:00 99 08/26/17 07:33 94 65 08/26/17 07:00 93 Mechanical Ventilator 65 08/26/17 06:00 95 08/26/17 04:23 92 65 08/26/17 04:00 99 08/26/17 04:00 65 08/26/17 04:00 98.6 104 16 110/83 (92) 90 08/26/17 02:00 101 08/26/17 00:00 110 08/26/17 00:00 101.1 110 15 142/69 (93) 92 08/26/17 00:00 65 08/25/17 23:29 92 65 08/25/17 22:00 110 08/25/17 21:28 93 50 08/25/17 20:00 100.3 96 14 128/75 (92) 93 08/25/17 20:00 103 08/25/17 20:00 50 I/O 08/25/17 08/25/17 08/25/17 08/26/17 08/26/17 08/26/17 07:00 15:00 23:00 07:00 15:00 23:00 Intake Total 309 ml 650 ml 967 ml 750 ml 170 ml 956 ml Output Total 80 ml 250.0 ml 300 ml 250 ml 5150.0 ml 530.0 ml Balance 229 ml 400.0 ml 667 ml 500 ml -4980.0 ml 426.0 ml Intake Oral 0 ml IV Total 650 ml 498 ml 610 ml 844 ml Tube Feeding 309 ml 289 ml 130 ml 52 ml Other 180 ml 10 ml 170 ml 60 ml Output Urine Total 80 ml 125 ml 50 ml 20 ml Stool Total 0 ml 175 ml 200 ml 60 ml Gastric Drainage Total 575 ml 225 ml Tube Feeding Residual Discard 0 ml 250.0 ml 575.0 ml 225.0 ml Hemodialysis 4000 ml Result Diagram: 08/26/1753008/26/17530 Objective Remarks GENERAL: This is a averagely built middle-aged white female who is intubated HEENT: Head normocephalic. Pupils reactive . Nasal mucosa clear.No thyroid enlargement or lymphadenopathy. CHEST: Decreased excursions. Expiratory wheezes scattered throughout both lung cabrera.Crackles at both Bases HEART: The heart sounds are irregular, S1-S2. No definite murmur. No S3. ABDOMEN: The abdomen is protuberant and soft without masses or organomegaly or tenderness. EXTREMITIES: Mild joint deformities. There is mild peripheral edema. Peripheral pulses are felt. Sedated. SKIN: No lesions observed. Assessment and Plan Assessment and Plan IMPRESSION 1. COPD with emphysema and chronic bronchitis. 2. Cellulitis and left elbow joint infection. 3. Nicotine dependency. 4. History of rheumatoid arthritis and interstitial lung disease. 5. Fibromyalgia. 6. ARDS Plan : 1. Cont Nebs qid , duoneb. 2. Cont Vent support and Wean FIO 2 to 60 % 3. Cont Antibiotics.Per ID 4. BMP , CXR CBC in am. 5. Cont Heparin S/Q 6. NG with feeds at 60 CC, jevity 7. Solumedrol 40 mg IV q12h 8. Dialysis per Renal. 9. palliative care to see. Perla Gonzalez MD Aug 26, 2017 19:36
[2017-08-26 21:42] LABS: APTT (PATIENT) 73.7 SEC (24.3-30.1)
[2017-08-26] MEDS: ACETAMINOPHEN 650 MG/20.3 ML UDC OG-TUBE PRN (23:07)
[2017-08-27] VITALS (20 sets, daily range): BP systolic 111–141; BP diastolic 56–72; PULSE 77–112; RESP 14–22; TEMP 97.4–100; O2SAT 96–100
[2017-08-27] MEDS: RESP: SODIUM CHLORIDE 3% 4 ML NEB NEB SCH ×6 (00:08→20:39)
[2017-08-27] MEDS: RESP: ALBUTEROL 2.5 MG/IPRATROPIUM 0.5 MG NEB (SCH) NEB ×2 (00:08→05:03)
[2017-08-27] MEDS: fentaNYL DRIP 250 ML IV PRN (00:33)
[2017-08-27] MEDS: PROPOFOL 1000 MG/100 ML IV PRN (01:41)
[2017-08-27] MEDS: guaiFENesin SOLUTION 200 MG/10 ML CUP OG-TUBE SCH ×3 (04:26→21:49)
[2017-08-27] MEDS: METOCLOPRAMIDE HCL 10 MG/2 ML VIAL IV PUSH SCH ×3 (04:26→21:49)
[2017-08-27] MEDS: ARTIFICIAL TEARS OPTH SOLN 15 ML BTL EACH EYE SCH ×3 (04:26→21:49)
[2017-08-27] MEDS: CLINDAMYCIN INJ 600 MG in SODIUM CHLORIDE 0.9% INJ 100 ML IV SCH ×4 (04:29→21:48)
[2017-08-27] MEDS: HEPARIN-D5W 25,000 U/250 ML 250 ML IV PRN ×2 (05:11→21:51)
[2017-08-27] MEDS: INSULIN NovoLIN REGULAR SUPPLEMENTAL SCALE SQ SCH ×3 (05:32→18:00)
[2017-08-27 05:37] LABS: APTT (PATIENT) 61.3 SEC (24.3-30.1)
[2017-08-27] MEDS: buPROPion HCL 100 MG SUSTAINED RELEASE TAB PO SCH ×2 (07:30→21:00)
[2017-08-27] MEDS: CHLORHEXIDINE 0.12% (ORAL KIT) 15 ML CUP MT SCH ×2 (08:09→21:50)
[2017-08-27] MEDS: SODIUM CHLORIDE 0.9% FLUSH 10 ML FLUSH IV FLUSH SCH ×3 (08:10→21:50)
[2017-08-27] MEDS: methylPREDNISolone SOD SUCC 40 MG/1 ML VIAL IV PUSH SCH ×2 (08:22→21:49)
[2017-08-27] MEDS: CHOLECALCIFEROL (VIT D3) 1000 UNIT TAB PO SCH (08:22)
[2017-08-27] MEDS: LEVOTHYROXINE SODIUM 50 MCG TAB PO SCH (08:22)
[2017-08-27] MEDS: SENNOSIDES SYRUP 8.8 MG/5 ML CUP NG SCH ×2 (08:22→21:47)
[2017-08-27] MEDS: FOLIC ACID 1 MG TAB PO SCH (08:22)
[2017-08-27] MEDS: CALCIUM ACETATE 667 MG CAP PO SCH ×3 (08:22→18:05)
[2017-08-27] MEDS: POLYETHYLENE GLYCOL 17 GM PKG NG SCH ×2 (08:23→21:48)
[2017-08-27] MEDS: DOXEPIN HCL 50 MG CAP PO SCH ×2 (08:23→21:49)
[2017-08-27] MEDS: GABAPENTIN 300 MG CAP PO SCH ×2 (08:23→21:50)
[2017-08-27] MEDS: LANSOPRAZOLE SOLUTAB 30 MG TAB NG SCH (08:23)
[2017-08-27] MEDS: DOCUSATE SODIUM 100 MG/10 ML UDC PO SCH ×2 (08:23→21:49)
[2017-08-27] MEDS: RESP: BUDESONIDE 0.5 MG/2 ML NEB NEB SCH ×2 (08:52→20:39)
--- NOTE | 2017-08-27 11:32 | HHI.NPPN ---
Subjective Renal Failure: Acute Interval History Her son is at the bedside. She became hypoxic, is on 100% FiO2. She is oligoanuric. (Yanely Lipscomb) Review of Systems General General Remarks unable to evaluate (Yanely Lipscomb) Objective Data Data Vital Signs Date Time Temp Pulse Resp B/P (MAP) Pulse Ox O2 Delivery O2 Flow Rate FiO2 08/27/17 11:11 100 90 08/27/17 10:00 100 08/27/17 10:00 100 144/69 08/27/17 08:54 100 70 08/27/17 08:00 90 08/27/17 08:00 98.0 87 14 132/72 (92) 100 08/27/17 08:00 87 08/27/17 07:00 Mechanical Ventilator 15.00 90 08/27/17 06:00 85 08/27/17 05:35 89 125/64 08/27/17 05:03 100 90 08/27/17 04:00 86 08/27/17 04:00 100 08/27/17 04:00 97.4 90 19 111/64 (80) 97 08/27/17 03:04 91 81/51 08/27/17 02:52 92 80/44 08/27/17 02:00 100 08/27/17 01:25 96 100 08/27/17 00:15 96 100 08/27/17 00:00 109 08/27/17 00:00 100.0 112 22 141/70 (93) 97 08/27/17 00:00 100 08/26/17 22:00 109 08/26/17 20:04 93 100 08/26/17 20:00 112 08/26/17 20:00 98.4 106 22 118/66 (83) 97 08/26/17 20:00 100 08/26/17 19:00 97 Mechanical Ventilator 100 08/26/17 18:00 102 08/26/17 16:00 100.8 105 22 124/59 (80) 98 08/26/17 16:00 105 08/26/17 16:00 70 08/26/17 14:43 92 75 08/26/17 14:40 95 Mechanical Ventilator 75 08/26/17 14:00 105 08/26/17 13:00 75 08/26/17 12:00 94 Mechanical Ventilator 80 08/26/17 12:00 80 08/26/17 12:00 99.2 111 25 153/73 (99) 94 08/26/17 12:00 111 (Yanely Lipscomb) -: 08/26/17 0531 08/26/17 0531 Imaging Last 72 hours Impressions Chest X-Ray 08/26/17 0600 Signed Impressions: Service Date/Time: Saturday, August 26, 2017 04:53 - CONCLUSION: 1. Patchy alveolar disease characteristic of edema or pneumonia. There has been no significant change when compared to the prior exam. Ranjit Espinal MD Chest X-Ray 08/25/17 06 Signed Impressions: Service Date/Time: Friday, August 25, 2017 04:23 - CONCLUSION: Diffuse mixed consolidation likely representing edema, diffuse infection, or ARDS. Cleve Ingram MD Tubes & Lines: Vas-Cath, Dee Drip Comment propofol, fentanyl, heparin, phenylepherine (Yanely Lipscomb) Physical Exam General Appearance: Well Developed, Well Nourished, Comfortable Appearance Remarks intubated,unresponsive (Yanely Lipscomb) Throat Throat Exam: Oral Mucosa [place] & Moist (Yanely Lipscomb) Pulmonary Resp Exam: Clear Bilaterally, Breath Sounds Equal, Decreased Bases (Yanely Lipscomb) Cardiology CV Exam: Regular, Normal Sinus Rhythm, Good Perfusion (Yanely Lipscomb) Gastrointestinal/Abdomen GI Exam: Soft, Non-Tender, Bowel Sounds Present (Yanely Lipscomb) Musculoskeletal MS Exam: Joints Intact, Normal Tone, Unable to Ambulate (Yanely Lipscomb) Integumentary Skin Exam: Warm, Dry, Intact Skin Remarks left elbow with sutures (Yanely Lipscomb) Extremeties Extremities Exam: Pedal Pulses Palpable, Moderate Edema, Pitting Edema Extremeties Remarks right arm edematous (Yanely Lipscomb) Neurologic Neuro Exam: Awake, Sedated (Yanely Lipscomb) VTE Prophylaxis Device: SCDs (Yanely Lipscomb) Assessment/Plan Assessment Summary: ROLAND/Acute Renal Failure, Acute Tubular Necrosis Problem List: (1) Acute renal failure ICD Codes: N17.9 - Acute kidney failure, unspecified Plan: She has normal renal function at baseline Suspected ATN from sepsis and renal hypoperfusion due to hypotension Low complement levels noted, HENRIQUE negative, hepatitis panel was negative Post infectious GN is also a possibility, check ANCA panel and anti-GBM S/p vascath placement, HD initiated 08/22 (2L UF) Continue HD support MWF and as needed; 4L UF yesterday, due tomorrow Adjust UF with dialysis Her urine output has slowed Follow renal function, await renal recovery On high dose calcium acetate with tube feeding for hyperphosphatemia on Nepro tube feedings Obtain daily labs There is some discussion about medical withdrawal , palliative to follow (2) Joint infection ICD Codes: M00.9 - Pyogenic arthritis, unspecified Status: Acute Plan: ID is following s/p I&D on 08/07 On cefepime and clindamycin (3) Anemia ICD Codes: D64.9 - Anemia, unspecified Plan: hb improved s/p transfusion of 2 units 08/21 on heparin for anticoagulation (4) DVT (deep venous thrombosis) ICD Codes: I82.409 - Acute embolism and thrombosis of unspecified deep veins of unspecified lower extremity Plan: extensive right arm DVT on Heparin gtt (Yanely Lipscomb) Problem List: (1) Acute renal failure ICD Codes: N17.9 - Acute kidney failure, unspecified Plan: She has normal renal function at baseline Suspected ATN from sepsis and renal hypoperfusion due to hypotension Low complement levels noted, HENRIQUE negative, hepatitis panel was negative Post infectious GN is also a possibility, check ANCA panel and anti-GBM S/p vascath placement, HD initiated 08/22 (2L UF) Continue HD support MWF and as needed; 4L UF yesterday, due tomorrow Adjust UF with dialysis Her urine output has slowed Follow renal function, await renal recovery On high dose calcium acetate with tube feeding for hyperphosphatemia on Nepro tube feedings Obtain daily labs There is some discussion about medical withdrawal , palliative to follow (2) Joint infection ICD Codes: M00.9 - Pyogenic arthritis, unspecified Status: Acute Plan: ID is following s/p I&D on 08/07 On cefepime and clindamycin (3) Anemia ICD Codes: D64.9 - Anemia, unspecified Plan: hb improved s/p transfusion of 2 units 08/21 on heparin for anticoagulation (4) DVT (deep venous thrombosis) ICD Codes: I82.409 - Acute embolism and thrombosis of unspecified deep veins of unspecified lower extremity Plan: extensive right arm DVT on Heparin gtt Plan patient was seen and examined. Agree with above assessment and plan. Very poor prognosis. (Jaime Moya MD) Yanely Lipscomb Aug 27, 2017 11:31 Jaime Moya MD Aug 28, 2017 10:09
--- NOTE | 2017-08-27 13:52 | HHI.IDPN ---
Subjective Subjective Remarks doing poorly afebrile On vent 85% FiO2 PEEP 8 no secretions On pressors, small amount Anuric Antibiotics cefepime clindamycin Allergies: Coded Allergies: No Known Allergies (Unverified , 08/07/17) Objective . Vital Signs Date Time Temp Pulse Resp B/P (MAP) Pulse Ox O2 Delivery O2 Flow Rate FiO2 08/27/17 12:00 102 08/27/17 12:00 90 08/27/17 11:11 100 90 08/27/17 10:00 100 08/27/17 10:00 100 144/69 08/27/17 08:54 100 70 08/27/17 08:00 90 08/27/17 08:00 98.0 87 14 132/72 (92) 100 08/27/17 08:00 87 08/27/17 07:00 Mechanical Ventilator 15.00 90 08/27/17 06:00 85 08/27/17 05:35 89 125/64 08/27/17 05:03 100 90 08/27/17 04:00 86 08/27/17 04:00 100 08/27/17 04:00 97.4 90 19 111/64 (80) 97 08/27/17 03:04 91 81/51 08/27/17 02:52 92 80/44 08/27/17 02:00 100 08/27/17 01:25 96 100 08/27/17 00:15 96 100 08/27/17 00:00 109 08/27/17 00:00 100.0 112 22 141/70 (93) 97 08/27/17 00:00 100 08/26/17 22:00 109 08/26/17 20:04 93 100 08/26/17 20:00 112 08/26/17 20:00 98.4 106 22 118/66 (83) 97 08/26/17 20:00 100 08/26/17 19:00 97 Mechanical Ventilator 100 08/26/17 18:00 102 08/26/17 16:00 100.8 105 22 124/59 (80) 98 08/26/17 16:00 105 08/26/17 16:00 70 08/26/17 14:43 92 75 08/26/17 14:40 95 Mechanical Ventilator 75 08/26/17 14:00 105 . Laboratory Tests Test 08/26/17 05:31 White Blood Count 13.9 TH/MM3 Red Blood Count 2.79 MIL/MM3 Hemoglobin 8.9 GM/DL Hematocrit 26.6 % Mean Corpuscular Volume 95.1 FL Mean Corpuscular Hemoglobin 31.7 PG Mean Corpuscular Hemoglobin Concent 33.3 % Red Cell Distribution Width 16.5 % Platelet Count 243 TH/MM3 Mean Platelet Volume 8.4 FL Neutrophils (%) (Auto) 90.7 % Lymphocytes (%) (Auto) 3.5 % Monocytes (%) (Auto) 4.9 % Eosinophils (%) (Auto) 0.4 % Basophils (%) (Auto) 0.5 % Neutrophils # (Auto) 12.6 TH/MM3 Lymphocytes # (Auto) 0.5 TH/MM3 Monocytes # (Auto) 0.7 TH/MM3 Eosinophils # (Auto) 0.1 TH/MM3 Basophils # (Auto) 0.1 TH/MM3 CBC Comment AUTO DIFF Differential Total Cells Counted 100 Neutrophils % (Manual) 82 % Band Neutrophils % 5 % Lymphocytes % 4 % Monocytes % 6 % Basophils % 2 % Neutrophils # (Manual) 12.2 TH/MM3 Myelocytes 1 % Differential Comment FINAL DIFF MANUAL Platelet Estimate NORMAL Platelet Morphology Comment NORMAL Red Cell Morphology Comment NORMAL Laboratory Tests Test 08/26/17 05:31 Blood Urea Nitrogen 132 MG/DL Creatinine 8.11 MG/DL Random Glucose 109 MG/DL Albumin 2.1 GM/DL Calcium Level 8.2 MG/DL Phosphorus Level 12.7 MG/DL Magnesium Level 2.2 MG/DL Sodium Level 133 MEQ/L Potassium Level 5.1 MEQ/L Chloride Level 89 MEQ/L Carbon Dioxide Level 23.9 MEQ/L Anion Gap 20 MEQ/L Estimat Glomerular Filtration Rate 5 ML/MIN Imaging Last Impressions Chest X-Ray 08/26/17 0600 Signed Impressions: Service Date/Time: Saturday, August 26, 2017 04:53 - CONCLUSION: 1. Patchy alveolar disease characteristic of edema or pneumonia. There has been no significant change when compared to the prior exam. Ranjit Espinal MD Abdomen/Pelvis CT 08/20/17 0000 Signed Impressions: Service Date/Time: Sunday, August 20, 2017 17:12 - CONCLUSION: 1. No evidence of discrete renal mass however there is decreased sensitivity without the use of contrast. 2. Minimal left perinephric stranding or fluid. 3. No evidence of hydronephrosis, nephrolithiasis or retroperitoneal hematoma. 4. Status post cholecystectomy. 5. Extensive lung infiltration. Mitesh Rojas MD Renal Ultrasound 08/19/17 0000 Signed Impressions: Service Date/Time: Saturday, August 19, 2017 13:50 - CONCLUSION: 1. Mildly increased renal cortical echogenicity consistent with medical renal disease. 2. Questionable minimally hyperechoic solid mass in the mid left kidney measuring 1.2 x 1.4 1.0 cm. Further evaluation may be performed with CT or MRI renal mass protocol on an outpatient basis. Jovi Loaiza MD Upper Extremity Ultrasound 08/16/17 0000 Signed Impressions: Service Date/Time: Wednesday, August 16, 2017 13:39 - CONCLUSION: Extensive right upper extremity DVT Cleve Barnett MD Chest CT 08/10/17 0000 Signed Impressions: Service Date/Time: Thursday, August 10, 2017 17:36 - CONCLUSION: 1. Upper lobe predominant central emphysema with upper lobe predominant diffuse interstitial and groundglass opacities. Differential considerations include developing ARDS, atypical infection, pulmonary edema, sarcoidosis, and drug induced lung disease amongst other etiologies. 2. Trace right pleural effusion. Jovi Loaiza MD Elbow X-Ray 08/07/17 0000 Signed Impressions: Service Date/Time: Monday, August 07, 2017 13:12 - CONCLUSION: Joint effusion, no fracture Naveed Sage MD FACR Elbow MRI 08/07/17 0000 Signed Impressions: Service Date/Time: Monday, August 07, 2017 14:11 - CONCLUSION: Presumed inflammatory process mainly involving the brachialis. The joint is suspected to be infected as well. There is no osteomyelitis as yet. Neurovascular bundle is displaced medially there are brachial bifurcation findings have been discussed with Latosha FRANCOIS on today's date. Naveed Sage MD FACR Physical Exam CONSTITUTIONAL/GENERAL: This is an adequately nourished patient, + increased resp effort TUBES/LINES/DRAINS: SKIN: No jaundice, rashes, or lesions. CARDIOVASCULAR: Regular rate and rhythm without murmurs, gallops, or rubs. RESPIRATORY/CHEST: Symmetric, tachypneic decreased BS b/l, dcattered rhonchi GASTROINTESTINAL: Abdomen soft, non-tender, mildly distended. OGT to suction with dark blood MUSCULOSKELETAL: Extremities without clubbing, cyanosis, RUE with markedly improved non pitting edema. No change LUE with very clean healing incision w/o erythema or edema BLE no edema : [place] with minimal amount cloudy urine NEUROLOGICAL: sedated, unresponsive PSYCHIATRIC: unable to assess Assessment & Plan Remarks Assessment and Plan Septic arthitis L elbow with deep abscess L brachialis muscle, MRSA sp I+D - healed, no e/o ongoing infx Acute VDRF - PNA vs non ifectious pneumonitis -not favoring PNA, more likely chronic intersitial lung disaes with advanced chronic resp failure interstitial and groundglass opacities Severe leukocytosis RA, on Humira RUE DVT Low grade fever ? from DVT - improved Low compliment levels - pt with underlying CTD Worsening AFR vancomycin stopped - no eosinophils ? UTI - UA abn, clx negative, but CT with stranding Pt is critically ill , very unstable from resp standpoint Hemoptysis, sp BAL, clx negative Worsening creatinine, going on HD New fever and worsening leukocytos PNA, new ? - - no secretions Funguria - doubt clin significance Poor prognosis, palliative care is involved Now with ileus - not tolerating TF Rec's: -cont cefepime for now - fu sputum clx if able to obtain - cont clindamycin for her septic L elbow artthritis - Marilyn Fabian MD Aug 27, 2017 13:52
--- NOTE | 2017-08-27 15:23 | HHI.CCPN ---
Subjective Remarks/Hospital Course 57-year-old white female with a history of a longstanding COPD and rheumatoid arthritis and fibromyalgia, was admitted with pain and swelling of the left elbow. The patient apparently was out of town and tripped and fell on her elbow injuring the elbow and requiring sutures for a laceration. Subsequently she developed swelling and redness and cellulitis and the patient was then brought to the ER where she was noted to have cellulitis with an abscessed area and now was seen by orthopedics and placed on antibiotic coverage for soft tissue infection with a joint abscess. She also was hypoxic upon admission and has been placed on oxygen via nasal cannula at 3 liters and she does have a cough and her chest x-ray that was done showed acute pulmonary infiltrates. Today she was in severe respiratory distress on the [facility] floor and the rapid response was called. She was transferred immediately to ICU and was intubated shortly after arrival due to severe respiratory distress and hypoxemia. 08/15: Gas exchange impaired, diffuse infiltrates persist. 08/16: Gas exchange remains markedly impaired. We are in for a long haul on the ventilator. 08/17: Gas exchange remains markedly impaired, PEEP 10 elevated FiO2. Diffuse interstitial infiltrates persist (On home oxygen). Extensive right arm and shoulder region DVT. 08/18: Converted to APRV for persistent hypoxemia. Leukocytosis persists. 08/19: A-aO2 gradient gradually improving. Family has reasonable concerns about the length of time she will require mechanical ventilation. They are at odds with each other about the terms defined in her advanced directive. I have asked them to bring the document to us. At this point the patient is gradually improving and will undergo spontaneous breathing trials within a day or two. 08/19: Tmax 100.2. Switched over to PRVC ventilation today. Will check ABG this afternoon. Not tolerating tube feeds currently at 20 cc an hour. 2 BMs yesterday documented. Arousable and follows commands on sedation vacation. 08/20: Yesterday, brought for hemoptysis. Suction trauma noted in the left main bronchus. Status post cold saline/sodium bicarbonate. Hemoglobin dropped from 9.8-7.1. No obvious source of bleeding. Denies abdominal pain. CT abdomen/pelvis pending. Rule out retroperitoneal bleed. Tolerating tube feeding. Hemolysis workup in process. Also noted, creatinine currently elevated at 3.3. Urine eosinophils were yesterday not performed. RN notified. Will do stat. Renal ultrasound revealed medical renal disease, left renal mass. 08/21: Afebrile. Creatinine is increased to 4.5. Urine output has increased however. Currently on PSV trial per pulmonology. CT abdomen/post revealed no retroperitoneal hematoma. Being transfused 2 units PRBCs today. 08/22: Resting comfortably in bed in no acute distress. Arousable falls commands. FiO2 at 50%. PEEP 10- 8. Will not attempt PSV trials today. Will need hemodialysis. 08/23: Increased secretions noted. Patient will be pancultured. Status post hemodialysis yesterday. Tolerating tube feeding. Positive bowel movement. 08/24: PEEP down to 8. Currently just on a fentanyl drip and appears comfortable. Hypotension overnight resolved. High residuals on tube feedings. Positive BM. 08/25: TMax 100.2 Patient RASS -1, nodding yes and no to questions and mouthing words, currently requesting to be extubated. Patient noted to be tachycardic heart rate in the low 100s. Continued TF residuals of 500 cc. 08/26: no improvements. remains on high fio2 without significant vent improvements. Cr significantly worse. multiple organs are failing. palliative care involved. Subjective 08/27: no meaningful improvements. renal function worse. persistently hypoxic. palliative meeting with family again today. Objective Vital Signs Date Time Temp Pulse Resp B/P (MAP) Pulse Ox O2 Delivery O2 Flow Rate FiO2 08/27/17 15:06 99 80 08/27/17 12:00 102 08/27/17 12:00 97.9 14 133/66 (88) 08/27/17 07:00 Mechanical Ventilator 15.00 Intake and Output 08/27/17 08/27/17 08/27/17 07:59 15:59 23:59 Intake Total 1134 ml Output Total 80 ml Balance 1054 ml Result Diagram: 08/26/17 0531 08/26/17 0531 Imaging Last Impressions Chest X-Ray 08/23/17 0000 Signed Impressions: Service Date/Time: Wednesday, August 23, 2017 01:34 - CONCLUSION: 1. Support apparatus in satisfactory position. Bilateral patchy airspace disease. No significant effusion. Jarrett Keenan MD Abdomen/Pelvis CT 08/20/17 0000 Signed Impressions: Service Date/Time: Sunday, August 20, 2017 17:12 - CONCLUSION: 1. No evidence of discrete renal mass however there is decreased sensitivity without the use of contrast. 2. Minimal left perinephric stranding or fluid. 3. No evidence of hydronephrosis, nephrolithiasis or retroperitoneal hematoma. 4. Status post cholecystectomy. 5. Extensive lung infiltration. Mitesh Rojas MD Renal Ultrasound 08/19/17 0000 Signed Impressions: Service Date/Time: Saturday, August 19, 2017 13:50 - CONCLUSION: 1. Mildly increased renal cortical echogenicity consistent with medical renal disease. 2. Questionable minimally hyperechoic solid mass in the mid left kidney measuring 1.2 x 1.4 1.0 cm. Further evaluation may be performed with CT or MRI renal mass protocol on an outpatient basis. Jovi Loaiza MD Upper Extremity Ultrasound 08/16/17 0000 Signed Impressions: Service Date/Time: Wednesday, August 16, 2017 13:39 - CONCLUSION: Extensive right upper extremity DVT Cleve Barnett MD Chest CT 08/10/17 0000 Signed Impressions: Service Date/Time: Thursday, August 10, 2017 17:36 - CONCLUSION: 1. Upper lobe predominant central emphysema with upper lobe predominant diffuse interstitial and groundglass opacities. Differential considerations include developing ARDS, atypical infection, pulmonary edema, sarcoidosis, and drug induced lung disease amongst other etiologies. 2. Trace right pleural effusion. Jovi Loaiza MD Elbow X-Ray 08/07/17 0000 Signed Impressions: Service Date/Time: Monday, August 07, 2017 13:12 - CONCLUSION: Joint effusion, no fracture Naveed Sage MD FACR Elbow MRI 08/07/17 0000 Signed Impressions: Service Date/Time: Monday, August 07, 2017 14:11 - CONCLUSION: Presumed inflammatory process mainly involving the brachialis. The joint is suspected to be infected as well. There is no osteomyelitis as yet. Neurovascular bundle is displaced medially there are brachial bifurcation findings have been discussed with Latosha FRANCOIS on today's date. Naveed Sage MD FACR Objective Remarks GENERAL: 57-year-old female, critically ill currently orotracheally intubated, awake nodding to questions SKIN: Warm and dry. No rash HEAD: Normocephalic. EYES: No scleral icterus. No injection or drainage. NECK: Supple, trachea midline. Orally intubated. CARDIOVASCULAR: RRR. RESPIRATORY: Coarse crackles appreciated throughout lung cabrera. No wheezing. GASTROINTESTINAL: Abdomen soft, non-tender, nondistended. BS active. MUSCULOSKELETAL: Status post excision and drainage of left elbow. Incision clean, dry. Right upper extremity edema 2+ NEURO EXAM: Moves 4 limbs. WENDY. Opens eyes. Follows simple commands. A/P Assessment and Plan Neuro/Psych: Fibromyalgia Depression/anxiety Chronic pain syndrome Patient is currently on fentanyl drip at 100 g for from an for analgesia while intubated Goal of RASS -2 to 0 Daily sedation vacation Continue doxepin 50 milligrams twice a day, fluoxetine 120 mg daily and bupropion 200 mg by mouth twice a day for depression/anxiety Continue gabapentin 300 mg morning and decreased from 600 mg to 300mg at night CV: Sinus tachycardia Patient is currently hemodynamic stable and not requiring vasopressors and/or antihypertensives PRN metoprolol to medication regimen Resp: Acute hypoxemic respiratory failure secondary due to ILD/COPD Hemoptysis PC/AC rate 14. Inspiratory pressure 16. PEEP 8. Inspiratory time 2.0. FiO2 45% Ventilator bundle Albuterol/ipratropium aerosols every 4 hours with albuterol aerosols every 2 hours when necessary dyspnea Add budesonide aerosols 0.5 mg/2 mL one inhalation twice a day And 3% hypertonic saline aerosols every 4 hours for thinning secretions Already guaifenesin 400 every 8 hours Methylprednisolone 40 mg IV 2 times a day will be continued Dr. Lisa Ibarra - pulmonology is following Chest x-ray 08/20 revealed pulmonary fibrosis as interstitial lung disease without focal pneumothorax. Repeat after bronchoscopy revealed pulmonary edema? Status post bronchoscopy 08/20 for hemoptysis. There was some suction trauma with cessation of bleeding with cold saline/sodium bicarbonate continues to fail attempts at even weaning fio2. not ready for SBT yet. GI: Goals Nepro 50 cc an hour, currently at 10 cc an hour Lansoprazole 30 cc daily GI prophylaxis Docusate sodium 200 mg twice a day/senna liquid 8.6 mg twice a day for bowel regimen and propylene glycol 17 g twice a day Currently on metoclopramide 5 mg IV every 8 hours for prokinetic bowel activity : Dee catheter has been placed for accurate I's and O's in a critically ill patient Endo: Hypothyroidism Continue levothyroxine 50 mcg daily Sliding-scale insulin with Accu-Cheks to maintain euglycemia/medium regimen of Novulin R while on steroids Rheum: RA Currently holding methotrexate 2.5 mg weekly. Likely resume when clinically indicated I discussed w/ Dr. Myoa. . Would not resume at the present time. Awaiting records from [facility] regarding underlying rheumatological disease. Rheumatoid factor negative here. Complements both low. Possible post infectious disease Continue folic acid 1 mg by mouth daily Renal: Acute kidney injury Left renal mass Vancomycin discontinued per infectious disease Negative urine eosinophil/creatinine and sodium reveal intrinsic renal disease Hemodialysis yesterday per nephrology Gated C3 and C4 both are low. Rheumatoid factor negative. Renal ultrasound revealed medical renal disease with cortical thickening. Left renal mass 1.2 x 1.[address] did not reveal any evidence of mass.. This is a chronic issue with this patient according to family. Nephrology consultation. Dr. Moya. renal function continues to be poor. Heme: Leukocytosis Macrocytic anemia Right upper extremity DVT Monitor CBC daily. Follow trends Ultrasound reveals nonocclusive thrombus right subclavian/axillary and occlusive thrombus radial/cephalic 08/20 held enoxaparin 80 mg subcutaneous twice a day in light of hemoptysis. Initiate heparin drip 08/23. 08/20 CT abdomen/pelvis ruled out retroperitoneal hematoma ID: MRSA left elbow Piperacillin/tazobactam and linezolid Vancomycin discontinued 08/19. Cefepime discontinued 08/20. Levofloxacin and clindamycin discontinued 08/23 Bronchoscopy cultures 08/19 no growth today. Blood cultures 2, urine and sputum today 08/23 ID on board. FEN: Hyperphosphatemia Replace electrolytes as clinically indicated Continue calcium acetate 1334 mg by mouth 3 times a day MSK: Status post ORIF left septic elbow 07/28 - MRSA Long-term antibiotics per infectious disease Access - Right IJ CVL - Left IJ hemodialysis catheter placed 08/22. Prophylaxis - GI - lansoprazole - DVT - SCD/heparin drip Palliative care involved and family meeting daily. prognosis poor with no improvement for days. Neftali Canela MD Aug 27, 2017 15:23
[2017-08-27] MEDS: CEFEPIME INJ 1,000 MG in SODIUM CHLORIDE 0.9% INJ 100 ML IV SCH (15:52)
--- NOTE | 2017-08-27 16:53 | HHI.HCPN ---
Reason for visit a. To assist with evaluation and management of symptoms including: dyspnea, malnutrition b. To assist medical decision maker(s) with: better understanding of current medical conditions; weighing benefits/burdens of medical treatment options; making medical treatment decisions. Subjective/Interval History Seen today to follow-up with family regarding decision-maker and goals of treatment. Patient has remained hemodynamically stable. Still with high FiO2 requirements via the ventilator. No new labs or imaging. High residuals again overnight on OG tube, now requiring OG is suction with significant gastric output, brownish liquid. Diprivan held for much of the day today, on fentanyl 150 mics an hour patient comfortable in this. Nursing indicates earlier patient following commands nodding some and mouthing words to family. To my exam patient is nonresponsive Diprivan remains off. She does not follow any commands does not localize to touch. Slight withdrawal to pain stimuli. On 150 mics fentanyl hour during my exam. Met with patient daughter Blessing, son Magno at bedside. Discussion of current condition, treatments in place, limited options going forward of continued aggressive interventions putting tracheostomy and PEG versus de-escalation and comfort measures. Family has determined that all adult children will be the decision makers, [place]over[place] does not wish to be the decision-maker. They have not been able to come to consensus or make decision yet regarding CODE STATUS and CPR or withdrawal of life support versus tracheostomy and PEG. They remain hopeful that the patient may be able to participate and indicate what her wishes would be. I again gently explore with them that I am not certain the patient will become wakeful or communicative enough to indicate her own wishes., And that most likely scenario they will need to guide us. Advise they should decide regarding proceeding with tracheostomy and PEG tube in the timeframe of by the end of this week. All questions answered. Discussed case with RN at length, as well as critical care . -- 1700 later notified by nursing patient more alert and interactive requested to reassess her mentation. No family present at time of my exam. Eyes are open tracks examiner. Nods to some yes and no questions though not consistently. Does not seem aware she is in the hospital-she looks surprisingly explained she is in the ICU. When I ask questions such is is the benja usually blue, or is the grass green etc. she inconsistently answers yes/no correctly. She does follow simple commands. When asked how many children she has she does hold up 4 fingers to my request to show on her fingers. When asked how many daughters she has she is unable to show me waves her hands. When asked about how many sons she has she waves her hands but does not show me specific fingers, then eventually shows me 3 or 4 fingers. When asked what month it is she is unable to mouth however when I start naming off she is not able to correctly nod , when I ask about it being February she nods yes. I do not feel at this point the patient has a good understanding or insight to hospitalization or any situational information to make fully informed decisions. Family/friend interactions *See above. Advance Directives Durable Power of Youth Specialist: Completed, but not made available (patient may have had a POA completed in [place] that we do not have copies of this document at this time no reported living well) Objective Vital Signs Date Time Temp Pulse Resp B/P (MAP) Pulse Ox O2 Delivery O2 Flow Rate FiO2 08/27/17 15:06 99 80 08/27/17 14:15 95 131/65 08/27/17 14:00 95 08/27/17 12:00 102 08/27/17 12:00 90 08/27/17 12:00 97.9 102 14 133/66 (88) 100 08/27/17 11:11 100 90 08/27/17 10:00 100 08/27/17 10:00 100 144/69 08/27/17 08:54 100 70 08/27/17 08:00 90 08/27/17 08:00 98.0 87 14 132/72 (92) 100 08/27/17 08:00 87 08/27/17 07:00 Mechanical Ventilator 15.00 90 08/27/17 06:00 85 08/27/17 05:35 89 125/64 08/27/17 05:03 100 90 08/27/17 04:00 86 08/27/17 04:00 100 08/27/17 04:00 97.4 90 19 111/64 (80) 97 08/27/17 03:04 91 81/51 08/27/17 02:52 92 80/44 08/27/17 02:00 100 08/27/17 01:25 96 100 08/27/17 00:15 96 100 08/27/17 00:00 109 08/27/17 00:00 100.0 112 22 141/70 (93) 97 08/27/17 00:00 100 08/26/17 22:00 109 08/26/17 20:04 93 100 08/26/17 20:00 112 08/26/17 20:00 98.4 106 22 118/66 (83) 97 08/26/17 20:00 100 08/26/17 19:00 97 Mechanical Ventilator 100 08/26/17 18:00 102 Intake & Output 08/27/17 08/27/17 07:00 19:00 Intake Total 1134 ml Output Total 380.0 ml Balance 754.0 ml IV Total 1043 ml Tube Feeding 91 ml Output Urine Total 30 ml Stool Total 50 ml Tube Feeding Residual Discard 300.0 ml Physical Exam CONSTITUTIONAL/GENERAL: This is an adequately nourished patient, in no apparent distress, sedated on mechanical vent TUBES/LINES/DRAINS: Right IJ central line, ET tube, OG tube, rectal bag, Dee catheter, soft wrist restraints SKIN: No jaundice, rashes, or lesions. Healing incision left elbow eduar intact asymptomatic. Skin temperature appropriate. Not diaphoretic. HEAD: Atraumatic. Normocephalic. CARDIOVASCULAR: Regular rate and rhythm, 90s. No JVD. Peripheral pulses symmetric. 1-2+ peripheral edema bilateral hands. RESPIRATORY/CHEST: Symmetric, mildly labored respirations. Coarse air movement throughout, faint scattered rhonchi. Decreased air movement. GASTROINTESTINAL: Abdomen soft, unable to assess tenderness, nondistended. No hepato-splenomegaly, or palpable masses. Tube feed held, OG tube to suction. Bowel sounds infrequent. GENITOURINARY: Without palpable bladder distension. Dee catheter in place scant urine output. MUSCULOSKELETAL: Extremities without clubbing, cyanosis. 1-2+ edema bilateral hands. No joint effusion noted. No mottling or clubbing. NEUROLOGICAL: Sedated on mechanical vent. Very slight withdraw of extremities to pain otherwise nonresponsive. No eye opening. Pupils equal and reactive positive corneal reflex. PSYCHIATRIC: No obvious anxiety/depression--limited assessment due to sedation, clinical condition. Diagnostic Tests Laboratory Laboratory Tests Test 08/25/17 05:01 08/25/17 06:30 08/25/17 16:45 08/26/17 00:52 White Blood Count 15.0 TH/MM3 (4.0-11.0) Red Blood Count 2.77 MIL/MM3 (4.00-5.30) Hemoglobin 8.9 GM/DL (11.6-15.3) Hematocrit 26.5 % (35.0-46.0) Mean Corpuscular Volume 95.4 FL (80.0-100.0) Mean Corpuscular Hemoglobin 31.9 PG (27.0-34.0) Mean Corpuscular Hemoglobin Concent 33.5 % (32.0-36.0) Red Cell Distribution Width 16.8 % (11.6-17.2) Platelet Count 253 TH/MM3 (150-450) Mean Platelet Volume 8.5 FL (7.0-11.0) Neutrophils (%) (Auto) 91.4 % (16.0-70.0) Lymphocytes (%) (Auto) 4.1 % (9.0-44.0) Monocytes (%) (Auto) 3.4 % (0.0-8.0) Eosinophils (%) (Auto) 0.6 % (0.0-4.0) Basophils (%) (Auto) 0.5 % (0.0-2.0) Neutrophils # (Auto) 13.7 TH/MM3 (1.8-7.7) Lymphocytes # (Auto) 0.6 TH/MM3 (1.0-4.8) Monocytes # (Auto) 0.5 TH/MM3 (0-0.9) Eosinophils # (Auto) 0.1 TH/MM3 (0-0.4) Basophils # (Auto) 0.1 TH/MM3 (0-0.2) CBC Comment AUTO DIFF Differential Total Cells Counted 100 Neutrophils % (Manual) 83 % (16-70) Band Neutrophils % 2 % (0-6) Lymphocytes % 6 % (9-44) Monocytes % 3 % (0-8) Eosinophils % 1 % (0-4) Neutrophils # (Manual) 13.5 TH/MM3 (1.8-7.7) Metamyelocytes 2 % (0-1) Myelocytes 3 % (0-0) Nucleated Red Blood Cells 1 /100 WBC (0-0) Differential Comment FINAL DIFF MANUAL Platelet Estimate NORMAL (NORMAL) Platelet Morphology Comment NORMAL (NORMAL) Red Cell Morphology Comment NORMAL (NORMAL) Blood Urea Nitrogen 112 MG/DL (7-18) Creatinine 6.55 MG/DL (0.50-1.00) Random Glucose 165 MG/DL (74-106) Albumin 2.1 GM/DL (3.4-5.0) Calcium Level 8.5 MG/DL (8.5-10.1) Phosphorus Level 8.8 MG/DL (2.5-4.9) Sodium Level 133 MEQ/L (136-145) Potassium Level 4.3 MEQ/L (3.5-5.1) Chloride Level 90 MEQ/L (98-107) Carbon Dioxide Level 26.9 MEQ/L (21.0-32.0) Anion Gap 16 MEQ/L (5-15) Estimat Glomerular Filtration Rate 7 ML/MIN (>89) Activated Partial Thromboplast Time 88.2 SEC (24.3-30.1) 65.8 SEC (24.3-30.1) 68.9 SEC (24.3-30.1) Test 08/26/17 05:31 08/26/17 06:30 08/26/17 15:10 08/26/17 20:28 White Blood Count 13.9 TH/MM3 (4.0-11.0) Red Blood Count 2.79 MIL/MM3 (4.00-5.30) Hemoglobin 8.9 GM/DL (11.6-15.3) Hematocrit 26.6 % (35.0-46.0) Mean Corpuscular Volume 95.1 FL (80.0-100.0) Mean Corpuscular Hemoglobin 31.7 PG (27.0-34.0) Mean Corpuscular Hemoglobin Concent 33.3 % (32.0-36.0) Red Cell Distribution Width 16.5 % (11.6-17.2) Platelet Count 243 TH/MM3 (150-450) Mean Platelet Volume 8.4 FL (7.0-11.0) Neutrophils (%) (Auto) 90.7 % (16.0-70.0) Lymphocytes (%) (Auto) 3.5 % (9.0-44.0) Monocytes (%) (Auto) 4.9 % (0.0-8.0) Eosinophils (%) (Auto) 0.4 % (0.0-4.0) Basophils (%) (Auto) 0.5 % (0.0-2.0) Neutrophils # (Auto) 12.6 TH/MM3 (1.8-7.7) Lymphocytes # (Auto) 0.5 TH/MM3 (1.0-4.8) Monocytes # (Auto) 0.7 TH/MM3 (0-0.9) Eosinophils # (Auto) 0.1 TH/MM3 (0-0.4) Basophils # (Auto) 0.1 TH/MM3 (0-0.2) CBC Comment AUTO DIFF Differential Total Cells Counted 100 Neutrophils % (Manual) 82 % (16-70) Band Neutrophils % 5 % (0-6) Lymphocytes % 4 % (9-44) Monocytes % 6 % (0-8) Basophils % 2 % (0-2) Neutrophils # (Manual) 12.2 TH/MM3 (1.8-7.7) Myelocytes 1 % (0-0) Differential Comment FINAL DIFF MANUAL Platelet Estimate NORMAL (NORMAL) Platelet Morphology Comment NORMAL (NORMAL) Red Cell Morphology Comment NORMAL (NORMAL) Activated Partial Thromboplast Time 111.8 SEC (24.3-30.1) 76.5 SEC (24.3-30.1) 66.0 SEC (24.3-30.1) 73.7 SEC (24.3-30.1) Blood Urea Nitrogen 132 MG/DL (7-18) Creatinine 8.11 MG/DL (0.50-1.00) Random Glucose 109 MG/DL (74-106) Albumin 2.1 GM/DL (3.4-5.0) Calcium Level 8.2 MG/DL (8.5-10.1) Phosphorus Level 12.7 MG/DL (2.5-4.9) Magnesium Level 2.2 MG/DL (1.5-2.5) Sodium Level 133 MEQ/L (136-145) Potassium Level 5.1 MEQ/L (3.5-5.1) Chloride Level 89 MEQ/L (98-107) Carbon Dioxide Level 23.9 MEQ/L (21.0-32.0) Anion Gap 20 MEQ/L (5-15) Estimat Glomerular Filtration Rate 5 ML/MIN (>89) Test 08/27/17 05:08 08/27/17 12:30 Activated Partial Thromboplast Time 61.3 SEC (24.3-30.1) Result Diagram: 08/26/17 0531 08/26/17 0531 Imaging Last Impressions Chest X-Ray 08/26/17 0600 Signed Impressions: Service Date/Time: Saturday, August 26, 2017 04:53 - CONCLUSION: 1. Patchy alveolar disease characteristic of edema or pneumonia. There has been no significant change when compared to the prior exam. Ranjit Espinal MD Abdomen/Pelvis CT 08/20/17 0000 Signed Impressions: Service Date/Time: Sunday, August 20, 2017 17:12 - CONCLUSION: 1. No evidence of discrete renal mass however there is decreased sensitivity without the use of contrast. 2. Minimal left perinephric stranding or fluid. 3. No evidence of hydronephrosis, nephrolithiasis or retroperitoneal hematoma. 4. Status post cholecystectomy. 5. Extensive lung infiltration. Mitesh Rojas MD Renal Ultrasound 08/19/17 0000 Signed Impressions: Service Date/Time: Saturday, August 19, 2017 13:50 - CONCLUSION: 1. Mildly increased renal cortical echogenicity consistent with medical renal disease. 2. Questionable minimally hyperechoic solid mass in the mid left kidney measuring 1.2 x 1.4 1.0 cm. Further evaluation may be performed with CT or MRI renal mass protocol on an outpatient basis. Jovi Loaiza MD Upper Extremity Ultrasound 08/16/17 0000 Signed Impressions: Service Date/Time: Wednesday, August 16, 2017 13:39 - CONCLUSION: Extensive right upper extremity DVT Cleve Barnett MD Chest CT 08/10/17 0000 Signed Impressions: Service Date/Time: Thursday, August 10, 2017 17:36 - CONCLUSION: 1. Upper lobe predominant central emphysema with upper lobe predominant diffuse interstitial and groundglass opacities. Differential considerations include developing ARDS, atypical infection, pulmonary edema, sarcoidosis, and drug induced lung disease amongst other etiologies. 2. Trace right pleural effusion. Jovi Loaiza MD Elbow X-Ray 08/07/17 0000 Signed Impressions: Service Date/Time: Monday, August 07, 2017 13:12 - CONCLUSION: Joint effusion, no fracture Naveed Sage MD FACR Elbow MRI 08/07/17 0000 Signed Impressions: Service Date/Time: Monday, August 07, 2017 14:11 - CONCLUSION: Presumed inflammatory process mainly involving the brachialis. The joint is suspected to be infected as well. There is no osteomyelitis as yet. Neurovascular bundle is displaced medially there are brachial bifurcation findings have been discussed with Latosha FRANCOIS on today's date. Naveed Sage MD FACR Assessment and Plan Disease Oriented Problem List: (1) Acute respiratory failure with hypoxia (2) Acute renal failure (3) Joint infection (4) Anemia (5) Depression (6) MRSA (methicillin resistant staph aureus) culture positive (7) ROLAND (acute kidney injury) (8) Septic arthritis of elbow, left Symptom Scale: (1) Dyspnea (2) Malnutrition (3) Pain Pertinent Non-Medical Issues Psychosocial:Originally from [place] worked in [employer] position for the past 18 years, though recently quit her job and moved to [place] one month ago. Has 4 adult children, he children's biological father secondary to suicide 3 years ago. Patient still legally to Roverto however they have been though still on speaking terms. Patient's children all live out of the area. Spiritual:Believes in God but no particular zenobia family does not think she would want art consultant visits at this time. Legal:Patient is not capacitated participate in decision-making. Not clear if or when she will regain capacity. She is still legally , per [place] statutes her would be appropriate legal proxy. Apparently earlier during this admission course this proxy wished to "sign over his rights" to one of pt's 4 adult children; however only a patient can designate a healthcare surrogate therefore the proxy cannot actually designate whom would be the legal decision maker. In This case the would in fact be the legal decision maker; unless he wishes to relinquish his rights, then legal decision making would fall to the majority of 4 adult children Ethical issues impacting care: Important Contacts spouse Haider Hollingsworth [phone] Adult daughter Dimas Hollingsworth -- Adult son Davonte Hollingsworth [phone] Adult son Nahun Hollingsworth [phone] Adult son Naif Hollingsworth [phone] Patient brother Nahun [phone] . Prognosis This patient was admitted with sepsis to the elbow joint-she required I&D. She subsequently has developed acute respiratory failure, acute kidney failure, and is currently experiencing GI motility issues. We'll. She likely had severe/ advanced underlying lung disease. Prognosis for full recovery is poor, possible she may survive current hospitalization with ongoing hospitalization requiring tracheostomy and PEG Code Status: Full Code Plan * Legal decision maker: Patient is not capacitated participate in decision- making. Not clear if or when she will regain capacity. She is still legally , per [place] statutes her Haider would be appropriate legal proxy. Apparently earlier during this admission course this proxy wished to "sign over his rights" to one of pt's 4 adult children; however only a patient can designate a healthcare surrogate therefore the proxy cannot actually designate whom would be the legal decision maker. In This case the would in fact be the legal decision maker; unless he wishes to relinquish his rights, then legal decision making would fall to the majority of ALL 4 adult children who wish to participate 08/27/17-- Roverto does not wish to be the decision-maker, all the adult children will serve as decision makers. * Goals: TBD-- family still discussing options.Family has determined that all adult children will be the decision makers, Roverto does not wish to be the decision-maker. They have not been able to come to consensus or make decision yet regarding CODE STATUS and CPR or withdrawal of life support versus tracheostomy and PEG. They remain hopeful that the patient may be able to participate and indicate what her wishes would be. I again gently explore with him that I am not certain the patient will become wakeful or communicative enough to indicate her own wishes. All questions answered. * CODE STATUS:FULL CODE * SYMPTOMS: --Dyspnea- emergently intubated 08/14, CT chest indicative of severe interstitial lung process, fibrosis. Patient not tolerating ventilator weaning thus far, still requiring 70-90% FiO2. Will likely require tracheostomy for ongoing ventilator support if goals are aggressive; early breathing comfortable with fentanyl drip for sedation --Malnutrition-albumin on admission was low at 2.5 remains low during this course. Currently with some high residuals and receiving low rate tube feed 10 mL's an hour. Some diarrhea stool negative for C. difficile. Will likely require PEG tube for long-term artificial nutrition. --Pain-chronic, patient with RA utilize naproxen outpatient for, with usually good control, in addition to her recently with arm injury with severe pain though currently appears comfortable on fentanyl drip. * Palliative care will continue to follow during hospital course as condition evolves, to assist patient/decision-maker with understanding of medical conditions, weighing benefits/burdens of treatment options, for clarification of goals of treatment. Additionally will assist with any symptoms of palliative concern . Time Spent Total Floor Time (mins): 45 (PE, review of chart, discussion with family, discussion with nurse, discussion with critical care) Attestation To help prompt me to consider important information that might be impacting today's encounter and assessment, information from prior notes written by myself or my colleagues may have been "brought forward" into today's note. My signature on this note, however, is an attestation that I personally performed the exam, history, and/or decision-making noted today, and, unless otherwise indicated, the interactions with patient, family, and staff as well as the review of records all occurred today. I also attest that the listed assessment and stated plan reflect my best clinical judgment today based on the combination of historical information, prior notes, and today's exam/ interactions. When time spent is documented, it refers only to time spent today by the signer, or if indicated, combined time spent today by collaborating physician/nurse practitioner. Ciera Morales Aug 27, 2017 16:53
--- NOTE | 2017-08-27 19:35 | HHI.PR ---
Subjective Remarks Remains Intubated and on Vent support , critical and on FIO2 at 90 %.On A/ C rate 16 Remains .Sedated. and assisting the vent.Was dialyzed CXR shows Bilateral infiltrates. Objective Vital Signs Date Time Temp Pulse Resp B/P (MAP) Pulse Ox O2 Delivery O2 Flow Rate FiO2 08/27/17 18:00 109 08/27/17 16:00 90 08/27/17 16:00 98.4 100 14 128/65 (86) 100 08/27/17 16:00 77 08/27/17 15:06 99 80 08/27/17 14:15 95 131/65 08/27/17 14:00 95 08/27/17 12:00 102 08/27/17 12:00 90 08/27/17 12:00 97.9 102 14 133/66 (88) 100 08/27/17 11:11 100 90 08/27/17 10:00 100 08/27/17 10:00 100 144/69 08/27/17 08:54 100 70 08/27/17 08:00 90 08/27/17 08:00 98.0 87 14 132/72 (92) 100 08/27/17 08:00 87 08/27/17 07:00 Mechanical Ventilator 15.00 90 08/27/17 06:00 85 08/27/17 05:35 89 125/64 08/27/17 05:03 100 90 08/27/17 04:00 86 08/27/17 04:00 100 08/27/17 04:00 97.4 90 19 111/64 (80) 97 08/27/17 03:04 91 81/51 08/27/17 02:52 92 80/44 08/27/17 02:00 100 08/27/17 01:25 96 100 08/27/17 00:15 96 100 08/27/17 00:00 109 08/27/17 00:00 100.0 112 22 141/70 (93) 97 08/27/17 00:00 100 08/26/17 22:00 109 08/26/17 20:04 93 100 08/26/17 20:00 112 08/26/17 20:00 98.4 106 22 118/66 (83) 97 08/26/17 20:00 100 I/O 10/16/08/26/17 08/26/17 08/27/17 08/27/17 08/27/17 06:59 14:59 22:59 06:59 14:59 22:59 Intake Total 850 ml 170 ml 956 ml 1134 ml 777 ml Output Total 250 ml 5150.0 ml 830.0 ml 80 ml 710 ml Balance 600 ml -4980.0 ml 126.0 ml 1054 ml 67 ml Intake Oral 0 ml IV Total 710 ml 844 ml 1043 ml 763 ml Tube Feeding 130 ml 52 ml 91 ml 14 ml Other 10 ml 170 ml 60 ml Output Urine Total 50 ml 20 ml 30 ml 60 ml Stool Total 200 ml 60 ml 50 ml Gastric Drainage Total 575 ml 225 ml 650 ml Tube Feeding Residual Discard 575.0 ml 525.0 ml 0 ml Hemodialysis 4000 ml Result Diagram: 08/26/1753008/26/17530 Objective Remarks GENERAL: This is a averagely built middle-aged white female who is intubated HEENT: Head normocephalic. Pupils reactive . Nasal mucosa clear.No thyroid enlargement or lymphadenopathy. CHEST: Decreased excursions. Expiratory wheezes scattered throughout both lung cabrera.Crackles bilaterally. HEART: The heart sounds are irregular, S1-S2. No definite murmur. No S3. ABDOMEN: The abdomen is protuberant and soft without masses or organomegaly or tenderness. EXTREMITIES: Mild joint deformities. There is mild peripheral edema. Peripheral pulses are felt. Sedated. SKIN: No lesions observed. Assessment and Plan Assessment and Plan IMPRESSION 1. COPD with emphysema and chronic bronchitis. 2. Cellulitis and left elbow joint infection. 3. Nicotine dependency. 4. History of rheumatoid arthritis and interstitial lung disease. 5. Fibromyalgia. 6. ARDS Plan : 1. Cont Nebs qid , duoneb. 2. Cont Vent support and Wean FIO 2 to keep sat >92 3. Cont Antibiotics.Per ID 4. BMP , CBC in am. 5. Cont Heparin S/Q 6. NG with feeds at 60 CC, jevity 7. Solumedrol 40 mg IV q12h 8. Dialysis per Renal. 9. palliative care to see. Perla Gonzalez MD Aug 27, 2017 19:35
[2017-08-28] VITALS (18 sets, daily range): BP systolic 91–153; BP diastolic 53–78; PULSE 90–120; RESP 16–23; TEMP 98.2–99.7; O2SAT 92–100
[2017-08-28] MEDS: RESP: SODIUM CHLORIDE 3% 4 ML NEB NEB SCH ×7 (03:34→23:41)
--- NOTE | 2017-08-28 03:49 | RADRPT ---
EXAM DATE/TIME: 08/28/2017 03:29 [facility] COMPARISON: CHEST SINGLE AP, August 26, 2017, 4:53. INDICATIONS : Short of breath. MEDICAL HISTORY : Chronic obstructive pulmonary disease. Gastroesophageal reflux disease. Diverticulitis. IBS, Fibromya lgia SURGICAL HISTORY : Appendectomy. Cholecystectomy. Tubal ligation. ENCOUNTER: Subsequent ACUITY: 2 weeks PAIN SCORE: 0/10 LOCATION: Bilateral chest FINDINGS: The cardiac silhouette is enlarged in transverse diameter. Support lines and tubes are in satisfactor y position. There is patchy alveolar disease bilaterally compatible with edema or pneumonia. No pleur al effusions are identified. CONCLUSION: 1. Patchy alveolar disease characteristic of edema or pneumonia. There has been no significant perea e when compared to the prior exam. Ranjit Espinal MD on August 28, 2017 at 3:47 Board Certified Radiologist. This report was verified electronically.
[2017-08-28] MEDS: ARTIFICIAL TEARS OPTH SOLN 15 ML BTL EACH EYE SCH ×3 (04:24→20:19)
[2017-08-28] MEDS: CLINDAMYCIN INJ 600 MG in SODIUM CHLORIDE 0.9% INJ 100 ML IV SCH ×4 (04:25→20:22)
[2017-08-28] MEDS: guaiFENesin SOLUTION 200 MG/10 ML CUP OG-TUBE SCH ×3 (04:58→20:21)
[2017-08-28] MEDS: METOCLOPRAMIDE HCL 10 MG/2 ML VIAL IV PUSH SCH ×3 (04:58→20:21)
[2017-08-28 06:00] LABS: BICARBONATE 26.2 MEQ/L (21.0-32.0); POTASSIUM 5.6 MEQ/L (3.5-5.1)
[2017-08-28] MEDS: INSULIN NovoLIN REGULAR SUPPLEMENTAL SCALE SQ SCH ×4 (06:00→18:00)
[2017-08-28] MEDS: fentaNYL DRIP 250 ML IV PRN (06:01)
[2017-08-28 06:36] LABS: CALCIUM-PROTEIN CORRECTED 7.4 MG/DL (8.5-10.1)
[2017-08-28] MEDS ORDERED: CALCIUM GLUCONATE 10% 1 GM/10 ML VIAL SLOW IVP ONE (07:00)
[2017-08-28] MEDS ORDERED: SODIUM BICARBONATE 8.4% SOLN 50 MEQ/50 ML VIAL SLOW IVP ONE (07:00)
[2017-08-28] MEDS ORDERED: INSULIN HUMAN REGULAR 1,000 UNITS/10 ML VIAL IV PUSH ONE (07:00)
[2017-08-28] MEDS ORDERED: DEXTROSE 50% IN WATER 50 ML VIAL(D50) IV PUSH ONE (07:00)
[2017-08-28] MEDS ORDERED: SODIUM POLYSTYRENE SULFONATE SUSP 15 GM/60 ML CUP PO ONE (07:00)
--- NOTE | 2017-08-28 07:09 | HHI.CCPN ---
Subjective Remarks/Hospital Course 57-year-old white female with a history of a longstanding COPD and rheumatoid arthritis and fibromyalgia, was admitted with pain and swelling of the left elbow. The patient apparently was out of town and tripped and fell on her elbow injuring the elbow and requiring sutures for a laceration. Subsequently she developed swelling and redness and cellulitis and the patient was then brought to the ER where she was noted to have cellulitis with an abscessed area and now was seen by orthopedics and placed on antibiotic coverage for soft tissue infection with a joint abscess. She also was hypoxic upon admission and has been placed on oxygen via nasal cannula at 3 liters and she does have a cough and her chest x-ray that was done showed acute pulmonary infiltrates. Today she was in severe respiratory distress on the [facility] floor and the rapid response was called. She was transferred immediately to ICU and was intubated shortly after arrival due to severe respiratory distress and hypoxemia. 08/15: Gas exchange impaired, diffuse infiltrates persist. 08/16: Gas exchange remains markedly impaired. We are in for a long haul on the ventilator. 08/17: Gas exchange remains markedly impaired, PEEP 10 elevated FiO2. Diffuse interstitial infiltrates persist (On home oxygen). Extensive right arm and shoulder region DVT. 08/18: Converted to APRV for persistent hypoxemia. Leukocytosis persists. 08/19: A-aO2 gradient gradually improving. Family has reasonable concerns about the length of time she will require mechanical ventilation. They are at odds with each other about the terms defined in her advanced directive. I have asked them to bring the document to us. At this point the patient is gradually improving and will undergo spontaneous breathing trials within a day or two. 08/19: Tmax 100.2. Switched over to PRVC ventilation today. Will check ABG this afternoon. Not tolerating tube feeds currently at 20 cc an hour. 2 BMs yesterday documented. Arousable and follows commands on sedation vacation. 08/20: Yesterday, brought for hemoptysis. Suction trauma noted in the left main bronchus. Status post cold saline/sodium bicarbonate. Hemoglobin dropped from 9.8-7.1. No obvious source of bleeding. Denies abdominal pain. CT abdomen/pelvis pending. Rule out retroperitoneal bleed. Tolerating tube feeding. Hemolysis workup in process. Also noted, creatinine currently elevated at 3.3. Urine eosinophils were yesterday not performed. RN notified. Will do stat. Renal ultrasound revealed medical renal disease, left renal mass. 08/21: Afebrile. Creatinine is increased to 4.5. Urine output has increased however. Currently on PSV trial per pulmonology. CT abdomen/post revealed no retroperitoneal hematoma. Being transfused 2 units PRBCs today. 08/22: Resting comfortably in bed in no acute distress. Arousable falls commands. FiO2 at 50%. PEEP 10- 8. Will not attempt PSV trials today. Will need hemodialysis. 08/23: Increased secretions noted. Patient will be pancultured. Status post hemodialysis yesterday. Tolerating tube feeding. Positive bowel movement. 08/24: PEEP down to 8. Currently just on a fentanyl drip and appears comfortable. Hypotension overnight resolved. High residuals on tube feedings. Positive BM. 08/25: TMax 100.2 Patient RASS -1, nodding yes and no to questions and mouthing words, currently requesting to be extubated. Patient noted to be tachycardic heart rate in the low 100s. Continued TF residuals of 500 cc. 08/26: no improvements. remains on high fio2 without significant vent improvements. Cr significantly worse. multiple organs are failing. palliative care involved. 08/27: no meaningful improvements. renal function worse. persistently hypoxic. palliative meeting with family again today. Subjective 08/28: Afebrile. FiO2 @ 90% but saturations are 99. NG tube currently to low intermittent wall suction. Minimal diarrhea per fecal containment device. Noted high potassium and phosphorus today Objective Vital Signs Date Time Temp Pulse Resp B/P (MAP) Pulse Ox O2 Delivery O2 Flow Rate FiO2 08/28/17 06:00 101 08/28/17 04:00 90 08/28/17 04:00 98.3 20 120/61 (80) 99 08/27/17 20:34 Ventilator 08/27/17 07:00 15.00 Intake and Output 08/28/17 08/28/17 08/29/17 08:00 16:00 00:00 Intake Total 361 ml Output Total 715 ml Balance -354 ml Result Diagram: 08/26/17 0531 08/28/17 0425 Other Results Microbiology Date/Time Source Procedure Growth Status 08/23/17 09:11 Blood Peripheral Aerobic Blood Culture - Preliminary NO GROWTH IN 4 DAYS Resulted 08/23/17 09:11 Blood Peripheral Anaerobic Blood Culture - Preliminary NO GROWTH IN 4 DAYS Resulted 08/23/17 08:25 Sputum Endotracheal Gram Stain - Final Complete 08/23/17 08:25 Sputum Endotracheal Sputum Culture - Final HEAVY GROWTH NORMAL RESPIRATORY OLMAN Complete 08/23/17 08:25 Urine Catheterized Urine Urine Culture - Final Estela Albicans Complete 08/07/17 19:48 Wound Elbow Fungal Smear - Final NO FUNGAL ELEMENTS SEEN. Resulted 08/07/17 19:48 Wound Elbow Fungal Culture - Preliminary NO GROWTH IN 2 WEEKS Resulted Imaging Last Impressions Chest X-Ray 08/28/17 0600 Signed Impressions: Service Date/Time: Monday, August 28, 2017 03:29 - CONCLUSION: 1. Patchy alveolar disease characteristic of edema or pneumonia. There has been no significant change when compared to the prior exam. Ranjit Espinal MD Abdomen/Pelvis CT 08/20/17 0000 Signed Impressions: Service Date/Time: Sunday, August 20, 2017 17:12 - CONCLUSION: 1. No evidence of discrete renal mass however there is decreased sensitivity without the use of contrast. 2. Minimal left perinephric stranding or fluid. 3. No evidence of hydronephrosis, nephrolithiasis or retroperitoneal hematoma. 4. Status post cholecystectomy. 5. Extensive lung infiltration. Mitesh Rojas MD Renal Ultrasound 08/19/17 0000 Signed Impressions: Service Date/Time: Saturday, August 19, 2017 13:50 - CONCLUSION: 1. Mildly increased renal cortical echogenicity consistent with medical renal disease. 2. Questionable minimally hyperechoic solid mass in the mid left kidney measuring 1.2 x 1.4 1.0 cm. Further evaluation may be performed with CT or MRI renal mass protocol on an outpatient basis. Jovi Loaiza MD Upper Extremity Ultrasound 08/16/17 0000 Signed Impressions: Service Date/Time: Wednesday, August 16, 2017 13:39 - CONCLUSION: Extensive right upper extremity DVT Cleve Barnett MD Chest CT 08/10/17 0000 Signed Impressions: Service Date/Time: Thursday, August 10, 2017 17:36 - CONCLUSION: 1. Upper lobe predominant central emphysema with upper lobe predominant diffuse interstitial and groundglass opacities. Differential considerations include developing ARDS, atypical infection, pulmonary edema, sarcoidosis, and drug induced lung disease amongst other etiologies. 2. Trace right pleural effusion. Jovi Loaiza MD Elbow X-Ray 08/07/17 0000 Signed Impressions: Service Date/Time: Monday, August 07, 2017 13:12 - CONCLUSION: Joint effusion, no fracture Naveed Sage MD FACR Elbow MRI 08/07/17 0000 Signed Impressions: Service Date/Time: Monday, August 07, 2017 14:11 - CONCLUSION: Presumed inflammatory process mainly involving the brachialis. The joint is suspected to be infected as well. There is no osteomyelitis as yet. Neurovascular bundle is displaced medially there are brachial bifurcation findings have been discussed with Latosha FRANCOIS on today's date. Naveed Sage MD FACR Objective Remarks GENERAL: 57-year-old female, critically ill currently orotracheally intubated, awake nodding to questions SKIN: Warm and dry. No rash HEAD: Normocephalic. EYES: No scleral icterus. No injection or drainage. NECK: Supple, trachea midline. Orally intubated. CARDIOVASCULAR: RRR. S1, S2. No S4 without murmur RESPIRATORY: Coarse crackles appreciated throughout lung cabrera. No wheezing. GASTROINTESTINAL: Abdomen soft, non-tender, nondistended. BS active. MUSCULOSKELETAL: Status post excision and drainage of left elbow. Incision clean, dry. Right upper extremity edema 2+ NEURO EXAM: Moves 4 limbs. WENDY. Opens eyes. Follows simple commands. A/P Assessment and Plan Neuro/Psych: Fibromyalgia Depression/anxiety Chronic pain syndrome Patient is currently on fentanyl drip at 125 g an hour for analgesia while intubated Goal of RASS -2 to 0 Daily sedation vacation Continue doxepin 50 milligrams twice a day, fluoxetine 120 mg daily and bupropion 200 mg by mouth twice a day for depression/anxiety Continue gabapentin 300 mg morning and decreased from 600 mg to 300mg at night CV: Patient is currently hemodynamic stable and not requiring vasopressors and/or antihypertensives Phenylephrine was stopped yesterday 10 a.m. PRN metoprolol to medication regimen Resp: Acute hypoxemic respiratory failure secondary due to ILD/COPD Hemoptysis PC/AC rate 14. Inspiratory pressure 16. Tidal volume around 500. PEEP 8. Inspiratory time 2.0. FiO2 80% Ventilator bundle Albuterol/ipratropium aerosols every 4 hours with albuterol aerosols every 2 hours when necessary dyspnea Continue budesonide aerosols 0.5 mg/2 mL one inhalation twice a day Continue 3% hypertonic saline aerosols every 4 hours for thinning secretions Continue guaifenesin 400 every 8 hours Methylprednisolone 40 mg IV 2 times a day will be continued Dr. Lisa Ibarra - pulmonology is following Status post bronchoscopy 08/20 for hemoptysis. There was some suction trauma with cessation of bleeding with cold saline/sodium bicarbonate Wean FiO2 to keep saturations greater than 92% GI: Goals Nepro 50 cc an hour, currently 2 mL ID of US Lansoprazole 30 cc daily GI prophylaxis Docusate sodium 200 mg twice a day/senna liquid 8.6 mg twice a day for bowel regimen and propylene glycol 17 g twice a day Currently on metoclopramide 5 mg IV every 8 hours for prokinetic bowel activity. Add E-Mycin 250 mg by tube 3 times daily : Dee catheter has been placed for accurate I's and O's in a critically ill patient Endo: Hypothyroidism Continue levothyroxine 50 mcg daily Sliding-scale insulin with Accu-Cheks to maintain euglycemia/medium regimen of Novulin R while on steroids Rheum: RA Currently holding methotrexate 2.5 mg weekly. Likely resume when clinically indicated I discussed w/ Dr. Moya. . Would not resume at the present time. Will review when arrive [facility] regarding underlying rheumatological disease. Rheumatoid factor negative here. Complements both low. Possible post infectious disease Continue folic acid 1 mg by mouth daily Renal: Acute kidney injury Left renal mass Vancomycin discontinued per infectious disease Negative urine eosinophil/creatinine and sodium reveal intrinsic renal disease Hemodialysis yesterday per nephrology Gated C3 and C4 both are low. Rheumatoid factor negative. Renal ultrasound revealed medical renal disease with cortical thickening. Left renal mass 1.2 x 1.[address] did not reveal any evidence of mass.. This is a chronic issue with this patient according to family. Nephrology consultation. Dr. Moya. renal function continues to be poor. Heme: Leukocytosis Macrocytic anemia Right upper extremity DVT Monitor CBC daily. Follow trends Ultrasound reveals nonocclusive thrombus right subclavian/axillary and occlusive thrombus radial/cephalic 08/20 held enoxaparin 80 mg subcutaneous twice a day in light of hemoptysis. Initiate heparin drip 08/23. Continue until decision on trach/PEG 08/20 CT abdomen/pelvis ruled out retroperitoneal hematoma ID: MRSA left elbow Cefepime/clindamycin per infectious disease Vancomycin discontinued 08/19. Cefepime discontinued 08/20. Levofloxacin and clindamycin discontinued 08/23. Piperacillin/tazobactam and linezolid discontinued Bronchoscopy cultures 08/19 no growth today. Blood cultures 2, urine and sputum today 08/23 ID on board. FEN: Hyperphosphatemia Hyperkalemia Replace electrolytes as clinically indicated Continue calcium acetate 2001 mg by mouth 3 times a day D50/insulin/Kayexalate/calcium gluconate/bicarbonate 1 now. Recheck potassium in 3 hours MSK: Status post ORIF left septic elbow 07/28 - MRSA - brachialis Long-term antibiotics per infectious disease Access - Right IJ CVL - Left IJ hemodialysis catheter placed 08/22. Prophylaxis - GI - lansoprazole - DVT - SCD/heparin drip Level II follow-up Justin Srivastava MD Aug 28, 2017 07:09
[2017-08-28] MEDS: RESP: BUDESONIDE 0.5 MG/2 ML NEB NEB SCH ×2 (07:40→20:29)
[2017-08-28] MEDS: RESP: ALBUTEROL 2.5 MG/IPRATROPIUM 0.5 MG NEB (SCH) NEB ×5 (07:40→23:41)
[2017-08-28] MEDS: CHLORHEXIDINE 0.12% (ORAL KIT) 15 ML CUP MT SCH ×2 (07:53→20:00)
[2017-08-28] MEDS: MIDAZOLAM 100 MG/100 ML INJ 100 ML IV PRN (08:20)
[2017-08-28] MEDS: buPROPion HCL 100 MG SUSTAINED RELEASE TAB PO SCH ×2 (09:00→20:19)
[2017-08-28] MEDS: DOXEPIN HCL 50 MG CAP PO SCH ×2 (09:00→21:00)
[2017-08-28] MEDS: SODIUM CHLORIDE 0.9% FLUSH 10 ML FLUSH IV FLUSH SCH ×3 (09:24→21:00)
[2017-08-28] MEDS: methylPREDNISolone SOD SUCC 40 MG/1 ML VIAL IV PUSH SCH ×2 (09:56→20:21)
[2017-08-28] MEDS: LANSOPRAZOLE SOLUTAB 30 MG TAB NG SCH (09:56)
[2017-08-28] MEDS: DOCUSATE SODIUM 100 MG/10 ML UDC PO SCH ×2 (09:56→20:21)
[2017-08-28] MEDS: CHOLECALCIFEROL (VIT D3) 1000 UNIT TAB PO SCH (09:56)
[2017-08-28] MEDS: POLYETHYLENE GLYCOL 17 GM PKG NG SCH ×2 (09:56→20:21)
[2017-08-28] MEDS: SENNOSIDES SYRUP 8.8 MG/5 ML CUP NG SCH ×2 (09:56→20:21)
[2017-08-28] MEDS: FOLIC ACID 1 MG TAB PO SCH (09:56)
[2017-08-28] MEDS: LEVOTHYROXINE SODIUM 50 MCG TAB PO SCH (09:57)
[2017-08-28] MEDS: GABAPENTIN 300 MG CAP PO SCH ×2 (09:57→20:19)
[2017-08-28] MEDS: CALCIUM ACETATE 667 MG CAP PO SCH ×3 (09:57→18:26)
--- NOTE | 2017-08-28 11:21 | HHI.NPPN ---
Subjective Renal Failure: Acute Interval History Seen during dialysis. She is unresponsive. Tube feeding on hold for suspected ileus. She is edematous. Treated for hyperkalemia earlier. (Yanely Lipscomb) Review of Systems General General Remarks unable to evaluate (Yanely Lipscomb) Objective Data Data Vital Signs Date Time Temp Pulse Resp B/P (MAP) Pulse Ox O2 Delivery O2 Flow Rate FiO2 08/28/17 11:08 96 70 08/28/17 10:00 112 08/28/17 08:00 98.2 114 23 153/78 (103) 92 08/28/17 08:00 100 08/28/17 08:00 114 08/28/17 07:17 96 75 08/28/17 07:00 Mechanical Ventilator 15.00 90 08/28/17 06:00 101 08/28/17 04:00 90 08/28/17 04:00 105 08/28/17 04:00 98.3 102 20 120/61 (80) 99 08/28/17 03:30 99 90 08/28/17 02:00 105 08/28/17 00:00 90 08/28/17 00:00 108 08/28/17 00:00 98.6 107 18 117/58 (77) 99 08/27/17 23:30 97 90 08/27/17 22:00 103 08/27/17 20:34 100 Ventilator 90 08/27/17 20:34 100 90 08/27/17 20:00 90 08/27/17 20:00 105 08/27/17 20:00 98.4 105 16 117/56 (76) 97 08/27/17 19:00 97 Mechanical Ventilator 90 08/27/17 18:00 109 08/27/17 16:00 90 08/27/17 16:00 98.4 100 14 128/65 (86) 100 08/27/17 16:00 77 08/27/17 15:06 99 80 08/27/17 14:15 95 131/65 08/27/17 14:00 95 08/27/17 12:00 102 08/27/17 12:00 90 08/27/17 12:00 97.9 102 14 133/66 (88) 100 (Yanely Lipscomb) -: 08/26/17 0531 08/28/17 1015 Imaging Last 72 hours Impressions Chest X-Ray 08/28/17 0600 Signed Impressions: Service Date/Time: Monday, August 28, 2017 03:29 - CONCLUSION: 1. Patchy alveolar disease characteristic of edema or pneumonia. There has been no significant change when compared to the prior exam. Ranjit Espinal MD Chest X-Ray 08/26/17 0600 Signed Impressions: Service Date/Time: Saturday, August 26, 2017 04:53 - CONCLUSION: 1. Patchy alveolar disease characteristic of edema or pneumonia. There has been no significant change when compared to the prior exam. Ranjit Espinal MD Tubes & Lines: Vas-Cath, Dee Drip Comment propofol, fentanyl, heparin; phenylepherine on hold (Yanely Lipscomb) Physical Exam General Appearance: Well Developed, Well Nourished, Comfortable Appearance Remarks intubated,unresponsive (Yanely Lipscobm) Throat Throat Exam: Oral Mucosa Yonah & Moist (Yanely Lipscomb) Pulmonary Resp Exam: Clear Bilaterally, Breath Sounds Equal, Decreased Bases (Yanely Lipscomb) Cardiology CV Exam: Regular, Normal Sinus Rhythm, Good Perfusion (Yanely Lipscomb) Gastrointestinal/Abdomen GI Exam: Soft, Non-Tender, Bowel Sounds Present (Yanely Lipscomb) Musculoskeletal MS Exam: Joints Intact, Normal Tone, Unable to Ambulate (Yanely Lipscomb) Integumentary Skin Exam: Warm, Dry, Intact Skin Remarks left elbow with sutures (Yanely Lipscomb) Extremeties Extremities Exam: Pedal Pulses Palpable, Moderate Edema, Pitting Edema Extremeties Remarks right arm edematous (Yanely Lipscomb) Neurologic Neuro Exam: Unresponsive, Sedated (Yanely Lipscomb) VTE Prophylaxis Device: SCDs (Yanely Lipscomb) Assessment/Plan Assessment Summary: ROLAND/Acute Renal Failure, Acute Tubular Necrosis Problem List: (1) Acute renal failure ICD Codes: N17.9 - Acute kidney failure, unspecified Plan: She has normal renal function at baseline Oliguric renal failure; Suspected ATN from sepsis with hypotension Low complement levels noted, HENRIQUE negative, hepatitis panel was negative Post infectious GN is less likely given negative ANCA; anti-GBM in process S/p vascath placement, HD initiated 08/22, now on MWF HD schedule Seen during dialysis today on a 2K, 250 BFR, goal 3L catheter has sluggish flow, may need replacement Adjust UF with dialysis Follow renal function, await renal recovery On high dose calcium acetate with for hyperphosphatemia; however her feeding is currently on hold; on Nepro tube feedings when diet progresses Obtain daily labs There is some discussion about medical withdrawal , palliative to follow (2) Joint infection ICD Codes: M00.9 - Pyogenic arthritis, unspecified Status: Acute Plan: ID is following s/p I&D on 08/07 On cefepime and clindamycin (3) Anemia ICD Codes: D64.9 - Anemia, unspecified Plan: hb improved s/p transfusion of 2 units 08/21 on heparin for anticoagulation (4) DVT (deep venous thrombosis) ICD Codes: I82.409 - Acute embolism and thrombosis of unspecified deep veins of unspecified lower extremity Plan: extensive right arm DVT on Heparin gtt Plan poor prognosis, family to decide on goals of treatment. (Yanely Lipscomb) Plan patient was seen and examined during dialysis. Oliguric. She has become dependent on dialysis. Prognosis is poor with multisystem failure. Requiring 80 % FiO2. She will likely need a new vascath for dialysis. Recommend to avoid Kayexalate. (Jaime Moya MD) Yanely Lipscomb Aug 28, 2017 11:21 Jaime Moya MD Aug 28, 2017 21:57
[2017-08-28] MEDS: PROPOFOL 1000 MG/100 ML IV PRN (11:27)
--- NOTE | 2017-08-28 12:01 | HHI.HCPN ---
Attempted to visit for ongoing supportive visit for family. No family at bedside at time of visit. Mrs. Hollingsworth currently undergoing dialysis. Nurse reports 2 sons missed their flights and will be coming in at a later time. Brother also on his way to visit. Family to return after dialysis complete. Palliative care number provided. Palliative care will continue to follow throughout hospitalization. Mickie Moore, [employer]IL MA[employer]ACHINE [employer]TER Aug 28, 2017 12:00
[2017-08-28] MEDS: GENTAMICIN SULFATE (DIALYSIS USE ONLY) 20 MG/2 ML VIAL OTHER PRN (12:14)
--- NOTE | 2017-08-28 13:29 | HHI.IDPN ---
Subjective Subjective Remarks doing poorly afebrile On vent with 70-100% FiO2 PEEP no secretions On pressors, small amount Anuric Antibiotics cefepime clindamycin Allergies: Coded Allergies: No Known Allergies (Unverified , 08/07/17) Objective . Vital Signs Date Time Temp Pulse Resp B/P (MAP) Pulse Ox O2 Delivery O2 Flow Rate FiO2 08/28/17 11:08 96 70 08/28/17 10:00 112 08/28/17 08:00 98.2 114 23 153/78 (103) 92 08/28/17 08:00 100 08/28/17 08:00 114 08/28/17 07:17 96 75 08/28/17 07:00 Mechanical Ventilator 15.00 90 08/28/17 06:00 101 08/28/17 04:00 90 08/28/17 04:00 105 08/28/17 04:00 98.3 102 20 120/61 (80) 99 08/28/17 03:30 99 90 08/28/17 02:00 105 08/28/17 00:00 90 08/28/17 00:00 108 08/28/17 00:00 98.6 107 18 117/58 (77) 99 08/27/17 23:30 97 90 08/27/17 22:00 103 08/27/17 20:34 100 Ventilator 90 08/27/17 20:34 100 90 08/27/17 20:00 90 08/27/17 20:00 105 08/27/17 20:00 98.4 105 16 117/56 (76) 97 08/27/17 19:00 97 Mechanical Ventilator 90 08/27/17 18:00 109 08/27/17 16:00 90 08/27/17 16:00 98.4 100 14 128/65 (86) 100 08/27/17 16:00 77 08/27/17 15:06 99 80 08/27/17 14:15 95 131/65 08/27/17 14:00 95 08/28/17 08/28/17 08/29/17 14:59 22:59 06:59 Output Total 3000 ml Balance -3000 ml Hemodialysis 3000 ml . Laboratory Tests Test 08/28/17 04:25 08/28/17 10:15 Blood Urea Nitrogen 131 MG/DL Creatinine 8.39 MG/DL Random Glucose 97 MG/DL Total Protein 6.2 GM/DL Albumin 1.9 GM/DL Calcium Level 6.9 MG/DL Phosphorus Level 16.7 MG/DL Sodium Level 134 MEQ/L Potassium Level 5.6 MEQ/L 3.9 MEQ/L Chloride Level 85 MEQ/L Carbon Dioxide Level 26.2 MEQ/L Anion Gap 23 MEQ/L Estimat Glomerular Filtration Rate 5 ML/MIN Protein Corrected Calcium 7.4 MG/DL Imaging Last Impre Last Impressions Chest X-Ray 08/28/17 0600 Signed Impressions: Service Date/Time: Monday, August 28, 2017 03:29 - CONCLUSION: 1. Patchy alveolar disease characteristic of edema or pneumonia. There has been no significant change when compared to the prior exam. Ranjit Espinal MD Abdomen/Pelvis CT 08/20/17 0000 Signed Impressions: Service Date/Time: Sunday, August 20, 2017 17:12 - CONCLUSION: 1. No evidence of discrete renal mass however there is decreased sensitivity without the use of contrast. 2. Minimal left perinephric stranding or fluid. 3. No evidence of hydronephrosis, nephrolithiasis or retroperitoneal hematoma. 4. Status post cholecystectomy. 5. Extensive lung infiltration. Mitesh Rojas MD Renal Ultrasound 08/19/17 0000 Signed Impressions: Service Date/Time: Saturday, August 19, 2017 13:50 - CONCLUSION: 1. Mildly increased renal cortical echogenicity consistent with medical renal disease. 2. Questionable minimally hyperechoic solid mass in the mid left kidney measuring 1.2 x 1.4 1.0 cm. Further evaluation may be performed with CT or MRI renal mass protocol on an outpatient basis. Jovi Loaiza MD Upper Extremity Ultrasound 08/16/17 0000 Signed Impressions: Service Date/Time: Wednesday, August 16, 2017 13:39 - CONCLUSION: Extensive right upper extremity DVT Cleve Barnett MD Chest CT 08/10/17 0000 Signed Impressions: Service Date/Time: Thursday, August 10, 2017 17:36 - CONCLUSION: 1. Upper lobe predominant central emphysema with upper lobe predominant diffuse interstitial and groundglass opacities. Differential considerations include developing ARDS, atypical infection, pulmonary edema, sarcoidosis, and drug induced lung disease amongst other etiologies. 2. Trace right pleural effusion. Jovi Loaiza MD Elbow X-Ray 08/07/17 0000 Signed Impressions: Service Date/Time: Monday, August 07, 2017 13:12 - CONCLUSION: Joint effusion, no fracture Naveed Sage MD FACR Elbow MRI 08/07/17 0000 Signed Impressions: Service Date/Time: Monday, August 07, 2017 14:11 - CONCLUSION: Presumed inflammatory process mainly involving the brachialis. The joint is suspected to be infected as well. There is no osteomyelitis as yet. Neurovascular bundle is displaced medially there are brachial bifurcation findings have been discussed with Latosha FRANCOIS on today's date. Naveed Sage MD FACR Physical Exam CONSTITUTIONAL/GENERAL: This is an adequately nourished patient, dissynchrony with vent TUBES/LINES/DRAINS: SKIN: No jaundice, rashes, or lesions. CARDIOVASCULAR: Regular rate and rhythm without murmurs, gallops, or rubs. RESPIRATORY/CHEST: Symmetric, tachypneic, laboured + dyssynchrony decreased BS b/l, dcattered rhonchi GASTROINTESTINAL: Abdomen soft, non-tender, mildly distended. OGT to suction with dark blood MUSCULOSKELETAL: Extremities without clubbing, cyanosis, RUE with markedly improved non pitting edema. No change LUE with very clean healing incision w/o erythema or edema BLE no edema : [place] i[place] with small amount of clear light yellow urine NEUROLOGICAL: sedated, unresponsive PSYCHIATRIC: unable to assess Assessment & Plan Remarks Assessment and Plan Septic arthitis L elbow with deep abscess L brachialis muscle, MRSA sp I+D - healed, no e/o ongoing infx Acute VDRF - PNA vs non ifectious pneumonitis -not favoring PNA, more likely chronic intersitial lung disaes with advanced chronic resp failure interstitial and groundglass opacities Severe leukocytosis RA, on Humira RUE DVT Low grade fever ? from DVT - improved Low compliment levels - pt with underlying CTD Worsening AFR vancomycin stopped - no eosinophils ? UTI - UA abn, clx negative, but CT with stranding Pt is critically ill , very unstable from resp standpoint Hemoptysis, sp BAL, clx negative Worsening creatinine, going on HD New fever and worsening leukocytos PNA, new ? - - no secretions Funguria - doubt clin significance Poor prognosis, palliative care is involved Now with ileus - not tolerating TF Rec's: -cont cefepime for now - fu sputum clx if able to obtain - cont clindamycin for her septic L elbow artthritis dw Marilyn Gross MD Aug 28, 2017 13:29
[2017-08-28 14:27] LABS: BLOOD GAS BASE EXCESS 2.9 mmol/L (-2-2); BLOOD GAS CARBOXYHEMOGLOBIN 1.4 % (0-4); BLOOD GAS HCO3 28 mmol/L (22-26); BLOOD GAS METHEMOGLOBIN 1.8 % (0-2); BLOOD GAS O2 HGB SATURATION 91 % (90-100); BLOOD GAS OXYGEN CONTENT 12.2 Vol % (12.0-20.0); BLOOD GAS PCO2 52 mmHg (38-42); BLOOD GAS PO2 76 mmHg (61-120); BLOOD GAS TOTAL HGB 9.5 G/DL (12.0-16.0); CRITICAL VALUE YES; DRAW SITE LT RADIAL; FIO2 60 %; NUMBER OF ARTERIAL PUNCTURES 1; OXYGEN DEVICE VENTILATOR; STAT NO; TEMP CORR TO 98.6; ULNAR PULSE PRESENT; VENT SETTINGS PRVC/20/550/1.2/+10
[2017-08-28] MEDS: CEFEPIME INJ 1,000 MG in SODIUM CHLORIDE 0.9% INJ 100 ML IV SCH (14:32)
[2017-08-28] MEDS: HEPARIN-D5W 25,000 U/250 ML 250 ML IV PRN (16:21)
--- NOTE | 2017-08-28 18:36 | HHI.PR ---
Subjective Remarks Remains Intubated and on Vent support , critical and on FIO2 at 60 %.On A/ C rate 20 Remains .Sedated. and assisting the vent. Was dialyzed and removed 3 L. CXR shows Bilateral infiltrates. Objective Vital Signs Date Time Temp Pulse Resp B/P (MAP) Pulse Ox O2 Delivery O2 Flow Rate FiO2 08/28/17 18:00 90 08/28/17 16:00 99.5 101 20 91/53 (66) 96 08/28/17 16:00 101 08/28/17 16:00 60 08/28/17 15:48 95 60 08/28/17 14:30 110 83/53 08/28/17 14:00 120 08/28/17 12:00 112 08/28/17 12:00 98.6 112 16 100/58 (72) 94 08/28/17 12:00 60 08/28/17 11:08 96 70 08/28/17 10:00 112 08/28/17 08:00 98.2 114 23 153/78 (103) 92 08/28/17 08:00 100 08/28/17 08:00 114 08/28/17 07:17 96 75 08/28/17 07:00 Mechanical Ventilator 15.00 90 08/28/17 06:00 101 08/28/17 04:00 90 08/28/17 04:00 105 08/28/17 04:00 98.3 102 20 120/61 (80) 99 08/28/17 03:30 99 90 08/28/17 02:00 105 08/28/17 00:00 90 08/28/17 00:00 108 08/28/17 00:00 98.6 107 18 117/58 (77) 99 08/27/17 23:30 97 90 08/27/17 22:00 103 08/27/17 20:34 100 Ventilator 90 08/27/17 20:34 100 90 08/27/17 20:00 90 08/27/17 20:00 105 08/27/17 20:00 98.4 105 16 117/56 (76) 97 08/27/17 19:00 97 Mechanical Ventilator 90 I/O 08/27/17 08/27/17 08/27/17 08/28/17 08/28/17 08/28/17 07:00 15:00 23:00 07:00 15:00 23:00 Intake Total 1134 ml 777 ml 361 ml 597 ml Output Total 80 ml 710 ml 715 ml 3000 ml 685 ml Balance 1054 ml 67 ml -354 ml -3000 ml -88 ml IV Total 1043 ml 763 ml 361 ml 597 ml Tube Feeding 91 ml 14 ml 0 ml Output Urine Total 30 ml 60 ml 15 ml 60 ml Stool Total 50 ml 50 ml 25 ml Gastric Drainage Total 650 ml 650 ml 600 ml Tube Feeding Residual Discard 0 ml Hemodialysis 3000 ml Result Diagram: 08/26/17 0531 08/28/17 1015 Objective Remarks GENERAL: This is a averagely built middle-aged white female who is intubated HEENT: Head normocephalic. Pupils reactive . Nasal mucosa clear.No thyroid enlargement or lymphadenopathy. CHEST: Decreased excursions. Expiratory wheezes scattered throughout both lung cabrera. Fine Crackles bilaterally. HEART: The heart sounds are irregular, S1-S2. No definite murmur. No S3. ABDOMEN: The abdomen is protuberant and soft without masses or organomegaly or tenderness. EXTREMITIES: Mild joint deformities. There is mild peripheral edema. Peripheral pulses are felt. Sedated. SKIN: No lesions observed. Assessment and Plan Assessment and Plan IMPRESSION 1. COPD with emphysema and chronic bronchitis. 2. Cellulitis and left elbow joint infection. 3. Nicotine dependency. 4. History of rheumatoid arthritis and interstitial lung disease. 5. Fibromyalgia. 6. ARDS Plan : 1. Cont Nebs qid , duoneb. 2. Cont Vent support and Wean FIO 2 to keep sat >92 3. Cont Antibiotics.Per ID 4. BMP ,CXR CBC in am. 5. Cont Heparin S/Q 6. NG with feeds at 60 CC, jevity 7. Solumedrol 40 mg IV q12h 8. Dialysis per Renal. 9. palliative care to see again . Family to decide on further Vent support. Perla Gonzalez MD Aug 28, 2017 18:36
[2017-08-29] VITALS (16 sets, daily range): BP systolic 96–126; BP diastolic 54–66; PULSE 98–116; RESP 20–23; TEMP 98.1–99.8; O2SAT 93–100
[2017-08-29] MEDS: fentaNYL DRIP 250 ML IV PRN (00:13)
[2017-08-29] MEDS: RESP: ALBUTEROL 2.5 MG/IPRATROPIUM 0.5 MG NEB (SCH) NEB ×5 (03:10→19:59)
[2017-08-29] MEDS: RESP: SODIUM CHLORIDE 3% 4 ML NEB NEB SCH ×5 (03:11→19:59)
[2017-08-29] MEDS: CLINDAMYCIN INJ 600 MG in SODIUM CHLORIDE 0.9% INJ 100 ML IV SCH ×3 (04:23→16:49)
[2017-08-29] MEDS: METOCLOPRAMIDE HCL 10 MG/2 ML VIAL IV PUSH SCH ×2 (05:26→13:34)
[2017-08-29] MEDS: guaiFENesin SOLUTION 200 MG/10 ML CUP OG-TUBE SCH ×2 (05:26→12:53)
[2017-08-29] MEDS: ARTIFICIAL TEARS OPTH SOLN 15 ML BTL EACH EYE SCH ×2 (05:26→13:33)
[2017-08-29] MEDS: INSULIN NovoLIN REGULAR SUPPLEMENTAL SCALE SQ SCH ×4 (06:00→17:00)
[2017-08-29 07:01] LABS: APTT (PATIENT) 61.1 SEC (24.3-30.1)
[2017-08-29 07:12] LABS: AUTOMATED NEUTROPHIL # 13.3 TH/MM3 (1.8-7.7); BASOPHIL % 0.3 % (0.0-2.0); EOSINOPHIL % 0.1 % (0.0-4.0); HEMATOCRIT 25.7 % (35.0-46.0); HEMO FLAGS DIFF FINAL; LYMPH % 1.8 % (9.0-44.0); LYMPHOCYTE # 0.3 TH/MM3 (1.0-4.8); MEAN CELL VOLUME 95.5 FL (80.0-100.0); MEAN CORPUSCULAR HEMOGLOBIN 31.2 PG (27.0-34.0); MEAN CORPUSCULAR HGB CONC 32.6 % (32.0-36.0); MONO % 2.9 % (0.0-8.0); NEUT % 94.9 % (16.0-70.0); PLATELET COUNT 198 TH/MM3 (150-450); RED BLOOD COUNT 2.69 MIL/MM3 (4.00-5.30); RED CELL DISTRIBUTION WIDTH 16.7 % (11.6-17.2)
[2017-08-29 07:32] LABS: BICARBONATE 26.8 MEQ/L (21.0-32.0); POTASSIUM 4.7 MEQ/L (3.5-5.1)
[2017-08-29] MEDS: RESP: BUDESONIDE 0.5 MG/2 ML NEB NEB SCH ×2 (07:37→19:59)
[2017-08-29] MEDS: CHLORHEXIDINE 0.12% (ORAL KIT) 15 ML CUP MT SCH ×2 (08:00→20:42)
[2017-08-29] MEDS: SODIUM CHLORIDE 0.9% FLUSH 10 ML FLUSH IV FLUSH SCH ×2 (08:51)
[2017-08-29] MEDS: POLYETHYLENE GLYCOL 17 GM PKG NG SCH ×2 (08:52→09:00)
[2017-08-29] MEDS: CHOLECALCIFEROL (VIT D3) 1000 UNIT TAB PO SCH ×2 (08:52→09:00)
[2017-08-29] MEDS: LANSOPRAZOLE SOLUTAB 30 MG TAB NG SCH ×2 (08:52→09:00)
[2017-08-29] MEDS: SENNOSIDES SYRUP 8.8 MG/5 ML CUP NG SCH ×2 (08:52→09:00)
[2017-08-29] MEDS: methylPREDNISolone SOD SUCC 40 MG/1 ML VIAL IV PUSH SCH (08:52)
[2017-08-29] MEDS: LEVOTHYROXINE SODIUM 50 MCG TAB PO SCH ×2 (08:52→09:00)
[2017-08-29] MEDS: DOCUSATE SODIUM 100 MG/10 ML UDC PO SCH ×2 (08:52→09:00)
[2017-08-29] MEDS: FOLIC ACID 1 MG TAB PO SCH ×2 (08:52→09:00)
[2017-08-29] MEDS: DOXEPIN HCL 50 MG CAP PO SCH ×2 (08:52→09:00)
[2017-08-29] MEDS: GABAPENTIN 300 MG CAP PO SCH ×2 (08:52→09:00)
[2017-08-29] MEDS: buPROPion HCL 100 MG SUSTAINED RELEASE TAB PO SCH ×2 (08:53→09:00)
[2017-08-29] MEDS: CALCIUM ACETATE 667 MG CAP PO SCH ×4 (08:53→16:09)
--- NOTE | 2017-08-29 10:01 | HHI.CCPN ---
Subjective Remarks/Hospital Course 57-year-old white female with a history of a longstanding COPD and rheumatoid arthritis and fibromyalgia, was admitted with pain and swelling of the left elbow. The patient apparently was out of town and tripped and fell on her elbow injuring the elbow and requiring sutures for a laceration. Subsequently she developed swelling and redness and cellulitis and the patient was then brought to the ER where she was noted to have cellulitis with an abscessed area and now was seen by orthopedics and placed on antibiotic coverage for soft tissue infection with a joint abscess. She also was hypoxic upon admission and has been placed on oxygen via nasal cannula at 3 liters and she does have a cough and her chest x-ray that was done showed acute pulmonary infiltrates. Today she was in severe respiratory distress on the [facility] floor and the rapid response was called. She was transferred immediately to ICU and was intubated shortly after arrival due to severe respiratory distress and hypoxemia. 08/15: Gas exchange impaired, diffuse infiltrates persist. 08/16: Gas exchange remains markedly impaired. We are in for a long haul on the ventilator. 08/17: Gas exchange remains markedly impaired, PEEP 10 elevated FiO2. Diffuse interstitial infiltrates persist (On home oxygen). Extensive right arm and shoulder region DVT. 08/18: Converted to APRV for persistent hypoxemia. Leukocytosis persists. 08/19: A-aO2 gradient gradually improving. Family has reasonable concerns about the length of time she will require mechanical ventilation. They are at odds with each other about the terms defined in her advanced directive. I have asked them to bring the document to us. At this point the patient is gradually improving and will undergo spontaneous breathing trials within a day or two. 08/19: Tmax 100.2. Switched over to PRVC ventilation today. Will check ABG this afternoon. Not tolerating tube feeds currently at 20 cc an hour. 2 BMs yesterday documented. Arousable and follows commands on sedation vacation. 08/20: Yesterday, brought for hemoptysis. Suction trauma noted in the left main bronchus. Status post cold saline/sodium bicarbonate. Hemoglobin dropped from 9.8-7.1. No obvious source of bleeding. Denies abdominal pain. CT abdomen/pelvis pending. Rule out retroperitoneal bleed. Tolerating tube feeding. Hemolysis workup in process. Also noted, creatinine currently elevated at 3.3. Urine eosinophils were yesterday not performed. RN notified. Will do stat. Renal ultrasound revealed medical renal disease, left renal mass. 08/21: Afebrile. Creatinine is increased to 4.5. Urine output has increased however. Currently on PSV trial per pulmonology. CT abdomen/post revealed no retroperitoneal hematoma. Being transfused 2 units PRBCs today. 08/22: Resting comfortably in bed in no acute distress. Arousable falls commands. FiO2 at 50%. PEEP 10- 8. Will not attempt PSV trials today. Will need hemodialysis. 08/23: Increased secretions noted. Patient will be pancultured. Status post hemodialysis yesterday. Tolerating tube feeding. Positive bowel movement. 08/24: PEEP down to 8. Currently just on a fentanyl drip and appears comfortable. Hypotension overnight resolved. High residuals on tube feedings. Positive BM. 08/25: TMax 100.2 Patient RASS -1, nodding yes and no to questions and mouthing words, currently requesting to be extubated. Patient noted to be tachycardic heart rate in the low 100s. Continued TF residuals of 500 cc. 08/26: no improvements. remains on high fio2 without significant vent improvements. Cr significantly worse. multiple organs are failing. palliative care involved. 08/27: no meaningful improvements. renal function worse. persistently hypoxic. palliative meeting with family again today. 08/28: Afebrile. FiO2 @ 90% but saturations are 99. NG tube currently to low intermittent wall suction. Minimal diarrhea per fecal containment device. Noted high potassium and phosphorus today Subjective 08/29: Afebrile. FiO2 down to 55%. NG tube with bright red blood. Heparin drip held. Placed on pantoprazole drip. Serial hemoglobins. Sedation off since 4 AM. More arousable and following commands. Plan for family meeting today Objective Vital Signs Date Time Temp Pulse Resp B/P (MAP) Pulse Ox O2 Delivery O2 Flow Rate FiO2 08/29/17 07:30 96 55 08/29/17 06:00 104 08/29/17 04:00 98.2 20 96/66 (76) 08/28/17 19:00 Mechanical Ventilator 08/28/17 07:00 15.00 Intake and Output 08/29/17 08/29/17 08/30/17 08:00 16:00 00:00 Intake Total 583 ml Output Total 325 ml Balance 258 ml Result Diagram: 08/29/17 0540 08/29/17 0540 Other Results Microbiology Date/Time Source Procedure Growth Status 08/23/17 09:11 Blood Peripheral Aerobic Blood Culture - Final NO GROWTH IN 5 DAYS Complete 08/23/17 09:11 Blood Peripheral Anaerobic Blood Culture - Final NO GROWTH IN 5 DAYS Complete 08/23/17 08:25 Sputum Endotracheal Gram Stain - Final Complete 08/23/17 08:25 Sputum Endotracheal Sputum Culture - Final HEAVY GROWTH NORMAL RESPIRATORY OLMAN Complete 08/23/17 08:25 Urine Catheterized Urine Urine Culture - Final Estela Albicans Complete 08/07/17 19:48 Wound Elbow Fungal Smear - Final NO FUNGAL ELEMENTS SEEN. Resulted 08/07/17 19:48 Wound Elbow Fungal Culture - Preliminary NO GROWTH IN 3 WEEKS Resulted Imaging Last Impressions Chest X-Ray 08/28/17 0600 Signed Impressions: Service Date/Time: Monday, August 28, 2017 03:29 - CONCLUSION: 1. Patchy alveolar disease characteristic of edema or pneumonia. There has been no significant change when compared to the prior exam. Ranjit Espinal MD Abdomen/Pelvis CT 08/20/17 0000 Signed Impressions: Service Date/Time: Sunday, August 20, 2017 17:12 - CONCLUSION: 1. No evidence of discrete renal mass however there is decreased sensitivity without the use of contrast. 2. Minimal left perinephric stranding or fluid. 3. No evidence of hydronephrosis, nephrolithiasis or retroperitoneal hematoma. 4. Status post cholecystectomy. 5. Extensive lung infiltration. Mitesh Rojas MD Renal Ultrasound 08/19/17 0000 Signed Impressions: Service Date/Time: Saturday, August 19, 2017 13:50 - CONCLUSION: 1. Mildly increased renal cortical echogenicity consistent with medical renal disease. 2. Questionable minimally hyperechoic solid mass in the mid left kidney measuring 1.2 x 1.4 1.0 cm. Further evaluation may be performed with CT or MRI renal mass protocol on an outpatient basis. Jovi Loaiza MD Upper Extremity Ultrasound 08/16/17 0000 Signed Impressions: Service Date/Time: Wednesday, August 16, 2017 13:39 - CONCLUSION: Extensive right upper extremity DVT Cleve Barnett MD Chest CT 08/10/17 0000 Signed Impressions: Service Date/Time: Thursday, August 10, 2017 17:36 - CONCLUSION: 1. Upper lobe predominant central emphysema with upper lobe predominant diffuse interstitial and groundglass opacities. Differential considerations include developing ARDS, atypical infection, pulmonary edema, sarcoidosis, and drug induced lung disease amongst other etiologies. 2. Trace right pleural effusion. Jovi Loaiza MD Elbow X-Ray 08/07/17 0000 Signed Impressions: Service Date/Time: Monday, August 07, 2017 13:12 - CONCLUSION: Joint effusion, no fracture Naveed Sage MD FACR Elbow MRI 08/07/17 0000 Signed Impressions: Service Date/Time: Monday, August 07, 2017 14:11 - CONCLUSION: Presumed inflammatory process mainly involving the brachialis. The joint is suspected to be infected as well. There is no osteomyelitis as yet. Neurovascular bundle is displaced medially there are brachial bifurcation findings have been discussed with Latosha FRANCOIS on today's date. Naveed Sage MD FACR Objective Remarks GENERAL: 57-year-old female, critically ill currently orotracheally intubated, awake nodding to questions SKIN: Warm and dry. No rash HEAD: Normocephalic. EYES: No scleral icterus. No injection or drainage. NECK: Supple, trachea midline. Orally intubated. CARDIOVASCULAR: RRR. S1, S2. No S4 without murmur RESPIRATORY: Coarse crackles appreciated throughout lung cabrera. No wheezing. GASTROINTESTINAL: Abdomen soft, non-tender, nondistended. BS active. MUSCULOSKELETAL: Status post excision and drainage of left elbow. Incision clean, dry. Right upper extremity edema 2+ NEURO EXAM: Moves 4 limbs. WENDY. Opens eyes. Follows simple commands. A/P Assessment and Plan Neuro/Psych: Fibromyalgia Depression/anxiety Chronic pain syndrome Patient is overnight was on midazolam drip at 2 mg an hour and fentanyl drip at 125 g an hour for analgesia while intubated Both these are currently on hold since 4 AM for sedation vacation Goal of RASS -2 to 0 Daily sedation vacation Continue doxepin 50 milligrams twice a day, fluoxetine 120 mg daily and bupropion 200 mg by mouth twice a day for depression/anxiety Continue gabapentin 300 mg morning and decreased from 600 mg to 300mg at night CV: Patient is currently hemodynamic stable and not requiring vasopressors and/or antihypertensives Phenylephrine was started overnight is currently off PRN metoprolol to medication regimen Resp: Acute hypoxemic respiratory failure secondary due to ILD/COPD Hemoptysis PC/AC rate 14. Inspiratory pressure 16. Tidal volume around 500. PEEP 8. Inspiratory time 2.0. FiO2 55% Ventilator bundle Albuterol/ipratropium aerosols every 4 hours with albuterol aerosols every 2 hours when necessary dyspnea Continue budesonide aerosols 0.5 mg/2 mL one inhalation twice a day Continue 3% hypertonic saline aerosols every 4 hours for thinning secretions Continue guaifenesin 400 every 8 hours Methylprednisolone 40 mg IV 2 times a day will be continued Dr. Lisa Ibarra - pulmonology is following Status post bronchoscopy 08/20 for hemoptysis. There was some suction trauma with cessation of bleeding with cold saline/sodium bicarbonate Wean FiO2 to keep saturations greater than 92% GI: Goals Nepro 50 cc an hour, currently on hold due to ileus Currently on pantoprazole drip at 8 mg an hour Docusate sodium 200 mg twice a day/senna liquid 8.6 mg twice a day for bowel regimen and propylene glycol 17 g twice a day Currently on metoclopramide 5 mg IV every 8 hours for prokinetic bowel activity. Continue E-Mycin 250 mg by tube 3 times daily Check KUB now. Start methylnaltrexone if needed : Dee catheter has been placed for accurate I's and O's in a critically ill patient Endo: Hypothyroidism Continue levothyroxine 50 mcg daily Sliding-scale insulin with Accu-Cheks to maintain euglycemia/medium regimen of Novulin R while on steroids Rheum: RA Currently holding methotrexate 2.5 mg weekly. Likely resume when clinically indicated I discussed w/ Dr. Moya. . Would not resume at the present time. Will review when arrive [facility] regarding underlying rheumatological disease. Rheumatoid factor negative here. Complements both low. Possible post infectious disease Continue folic acid 1 mg by mouth daily Renal: Acute kidney injury Left renal mass Vancomycin discontinued per infectious disease Negative urine eosinophil/creatinine and sodium reveal intrinsic renal disease Hemodialysis yesterday per nephrology Gated C3 and C4 both are low. Rheumatoid factor negative. Renal ultrasound revealed medical renal disease with cortical thickening. Left renal mass 1.2 x 1.[address] did not reveal any evidence of mass.. This is a chronic issue with this patient according to family. Nephrology consultation. Dr. Moya. renal function continues to be poor. Heme: Leukocytosis Macrocytic anemia Right upper extremity DVT Monitor CBC daily. Follow trends Ultrasound reveals nonocclusive thrombus right subclavian/axillary and occlusive thrombus radial/cephalic 08/20 held enoxaparin 80 mg subcutaneous twice a day in light of hemoptysis. Initiate heparin drip 08/23. Continue until final decision on trach/PEG. 08/20 CT abdomen/pelvis ruled out retroperitoneal hematoma ID: MRSA left elbow Cefepime/clindamycin per infectious disease Vancomycin discontinued 08/19. Cefepime discontinued 08/20. Levofloxacin and clindamycin discontinued 08/23. Piperacillin/tazobactam and linezolid discontinued Bronchoscopy cultures 08/19 no growth today. Blood cultures 2, urine and sputum today 08/23 ID on board. FEN: Hyperphosphatemia Hyperkalemia Replace electrolytes as clinically indicated Continue calcium acetate 2001 mg by mouth 3 times a day D50/insulin/Kayexalate/calcium gluconate/bicarbonate 1 now. Recheck potassium in 3 hours MSK: Status post ORIF left septic elbow 07/28 - MRSA - brachialis Long-term antibiotics per infectious disease Access - Right IJ CVL - Left IJ hemodialysis catheter placed 08/22. Prophylaxis - GI -pantoprazole - DVT - SCD/heparin drip currently on hold due to bleeding Level III follow-up Justin Srivastava MD Aug 29, 2017 10:01
[2017-08-29] MEDS ORDERED: FLUMAZENIL 0.5 MG/5 ML VIAL IV PUSH ONE (10:40)
[2017-08-29] MEDS ORDERED: PANTOPRAZOLE INJ 80 MG in SODIUM CHLORIDE 0.9% INJ 100 ML IV SCH (11:00)
[2017-08-29] MEDS ORDERED: PANTOPRAZOLE INJ 80 MG in SODIUM CHLORIDE 0.9% INJ 35 ML IV ONE (11:00)
--- NOTE | 2017-08-29 11:27 | HHI.IDPN ---
Subjective Subjective Remarks bright blood per NG tube doing poorly afebrile On vent with 50% FiO2 PEEP 10 minimal secretions Anuric Antibiotics cefepime clindamycin Allergies: Coded Allergies: No Known Allergies (Unverified , 08/07/17) Objective . Vital Signs Date Time Temp Pulse Resp B/P (MAP) Pulse Ox O2 Delivery O2 Flow Rate FiO2 08/29/17 07:30 96 55 08/29/17 06:00 104 08/29/17 04:00 98.2 105 20 96/66 (76) 95 08/29/17 04:00 55 08/29/17 04:00 105 08/29/17 03:12 100 55 08/29/17 02:00 110 08/29/17 01:32 94 55 08/29/17 00:13 116 116/59 08/29/17 00:00 99.2 116 20 116/59 (78) 96 08/29/17 00:00 55 08/29/17 00:00 106 08/28/17 22:00 106 08/28/17 21:57 100 55 08/28/17 20:29 93 55 08/28/17 20:00 112 08/28/17 20:00 99.7 112 20 108/56 (73) 95 08/28/17 20:00 55 08/28/17 19:00 95 Mechanical Ventilator 55 08/28/17 18:00 90 08/28/17 16:00 99.5 101 20 91/53 (66) 96 08/28/17 16:00 101 08/28/17 16:00 60 08/28/17 15:48 95 60 08/28/17 14:30 110 83/53 08/28/17 14:00 120 08/28/17 12:00 112 08/28/17 12:00 98.6 112 16 100/58 (72) 94 08/28/17 12:00 60 . Laboratory Tests Test 08/29/17 05:40 White Blood Count 14.0 TH/MM3 Red Blood Count 2.69 MIL/MM3 Hemoglobin 8.4 GM/DL Hematocrit 25.7 % Mean Corpuscular Volume 95.5 FL Mean Corpuscular Hemoglobin 31.2 PG Mean Corpuscular Hemoglobin Concent 32.6 % Red Cell Distribution Width 16.7 % Platelet Count 198 TH/MM3 Mean Platelet Volume 8.6 FL Neutrophils (%) (Auto) 94.9 % Lymphocytes (%) (Auto) 1.8 % Monocytes (%) (Auto) 2.9 % Eosinophils (%) (Auto) 0.1 % Basophils (%) (Auto) 0.3 % Neutrophils # (Auto) 13.3 TH/MM3 Lymphocytes # (Auto) 0.3 TH/MM3 Monocytes # (Auto) 0.4 TH/MM3 Eosinophils # (Auto) 0.0 TH/MM3 Basophils # (Auto) 0.0 TH/MM3 CBC Comment DIFF FINAL Differential Comment Laboratory Tests Test 08/28/17 04:25 08/28/17 10:15 08/29/17 05:40 Blood Urea Nitrogen 131 MG/DL 97 MG/DL Creatinine 8.39 MG/DL 6.42 MG/DL Random Glucose 97 MG/DL 119 MG/DL Total Protein 6.2 GM/DL Albumin 1.9 GM/DL 1.9 GM/DL Calcium Level 6.9 MG/DL 6.9 MG/DL Phosphorus Level 16.7 MG/DL 10.8 MG/DL Sodium Level 134 MEQ/L 136 MEQ/L Potassium Level 5.6 MEQ/L 3.9 MEQ/L 4.7 MEQ/L Chloride Level 85 MEQ/L 93 MEQ/L Carbon Dioxide Level 26.2 MEQ/L 26.8 MEQ/L Anion Gap 23 MEQ/L 16 MEQ/L Estimat Glomerular Filtration Rate 5 ML/MIN 7 ML/MIN Protein Corrected Calcium 7.4 MG/DL Imaging Last Impressions Chest X-Ray 08/28/17 0600 Signed Impressions: Service Date/Time: Monday, August 28, 2017 03:29 - CONCLUSION: 1. Patchy alveolar disease characteristic of edema or pneumonia. There has been no significant change when compared to the prior exam. Ranjit Espinal MD Abdomen/Pelvis CT 08/20/17 0000 Signed Impressions: Service Date/Time: Sunday, August 20, 2017 17:12 - CONCLUSION: 1. No evidence of discrete renal mass however there is decreased sensitivity without the use of contrast. 2. Minimal left perinephric stranding or fluid. 3. No evidence of hydronephrosis, nephrolithiasis or retroperitoneal hematoma. 4. Status post cholecystectomy. 5. Extensive lung infiltration. Mitesh Rojas MD Renal Ultrasound 08/19/17 0000 Signed Impressions: Service Date/Time: Saturday, August 19, 2017 13:50 - CONCLUSION: 1. Mildly increased renal cortical echogenicity consistent with medical renal disease. 2. Questionable minimally hyperechoic solid mass in the mid left kidney measuring 1.2 x 1.4 1.0 cm. Further evaluation may be performed with CT or MRI renal mass protocol on an outpatient basis. Jovi Loaiza MD Upper Extremity Ultrasound 08/16/17 0000 Signed Impressions: Service Date/Time: Wednesday, August 16, 2017 13:39 - CONCLUSION: Extensive right upper extremity DVT Cleve Barnett MD Chest CT 08/10/17 0000 Signed Impressions: Service Date/Time: Thursday, August 10, 2017 17:36 - CONCLUSION: 1. Upper lobe predominant central emphysema with upper lobe predominant diffuse interstitial and groundglass opacities. Differential considerations include developing ARDS, atypical infection, pulmonary edema, sarcoidosis, and drug induced lung disease amongst other etiologies. 2. Trace right pleural effusion. Jovi Loaiza MD Elbow X-Ray 08/07/17 0000 Signed Impressions: Service Date/Time: Monday, August 07, 2017 13:12 - CONCLUSION: Joint effusion, no fracture Naveed Sage MD FACR Elbow MRI 08/07/17 0000 Signed Impressions: Service Date/Time: Monday, August 07, 2017 14:11 - CONCLUSION: Presumed inflammatory process mainly involving the brachialis. The joint is suspected to be infected as well. There is no osteomyelitis as yet. Neurovascular bundle is displaced medially there are brachial bifurcation findings have been discussed with Latosha FRANCOIS on today's date. Naveed Sage MD FACR Physical Exam CONSTITUTIONAL/GENERAL: This is an adequately nourished patient, dissynchrony with vent TUBES/LINES/DRAINS: SKIN: No jaundice, or lesions. Rasch, morbiliform on R flank CARDIOVASCULAR: Regular rate and rhythm without murmurs, gallops, or rubs. RESPIRATORY/CHEST: Symmetric, tachypneic, laboured + dyssynchrony decreased BS b/l, dcattered rhonchi GASTROINTESTINAL: Abdomen soft, non-tender, mildly distended. OGT to suction with dark blood MUSCULOSKELETAL: Extremities without clubbing, cyanosis, RUE with markedly improved non pitting edema. No change LUE with very clean healing incision w/o erythema or edema BLE no edema : se[place] iplace with small amount of clear light yellow urine NEUROLOGICAL: sedated, unresponsive PSYCHIATRIC: unable to assess Assessment & Plan Remarks Assessment and Plan Septic arthitis L elbow with deep abscess L brachialis muscle, MRSA sp I+D - healed, no e/o ongoing infx Acute VDRF - PNA vs non ifectious pneumonitis -not favoring PNA, more likely chronic intersitial lung disaes with advanced chronic resp failure interstitial and groundglass opacities Severe leukocytosis RA, on Humira RUE DVT Low grade fever ? from DVT - improved Low compliment levels - pt with underlying CTD Worsening AFR vancomycin stopped - no eosinophils ? UTI - UA abn, clx negative, but CT with stranding Pt is critically ill , very unstable from resp standpoint Hemoptysis, sp BAL, clx negative Worsening creatinine, going on HD New fever and worsening leukocytos PNA, new ? - - no secretions Funguria - doubt clin significance Poor prognosis, palliative care is involved Now with ileus - not tolerating TF Upper GIB - new RAsh - new ? abx Rec's: -dc cefepime -will try azctam - fu sputum clx if able to obtain - cont clindamycin for her septic L elbow artthritis dw Dr Atif thompson RN dw family @ b/s Marilyn Fabian MD Aug 29, 2017 11:27
--- NOTE | 2017-08-29 11:47 | HHI.HCPN ---
Reason for visit a. To assist with evaluation and management of symptoms including: dyspnea, malnutrition b. To assist medical decision maker(s) with: better understanding of current medical conditions; weighing benefits/burdens of medical treatment options; making medical treatment decisions. Subjective/Interval History Seen today to follow-up with family regarding goals of treatment- received VM from family stating that they request 10am mtg with palliative. Patient has remained hemodynamically stable. Still with fluctuating FiO2 requirements via the ventilator 60-95%, though has tolerated 55% for a few hours. High residuals again from OG tube, red return, concern for GI bleed. Probable ileus. GI consulted. OG tube to suction with varying brown to red output. Output 600+ mL. H&H slowly down trending 8.4/25.7. No improvement in renal functions continues to require hemodialysis. Arrived at unit nursing at bedside, discussed with critical care. Patient sedation has been held this morning to assist with assessment of neurological status and for the possibility that family may assess what patient wishes are. Patient still lethargic at time of my arrival, reversal agent given IV per critical care. 3 sons, 1 daughter present at bedside. Patient awakens following commands. Nods appropriately to situational questions such as year, president, month, circumstances of hospitalization number of sons, number of daughters. She is able to mouth some words others she is able to gesture via number communication with her fingers. *Dual visit with Geri MEYER palliative care. RN also present for pt assessment, critical care Dr Srivastava present for parts of interaction. Patient answering appropriately appears to have reasonable insight and understanding. Exploration of her underlying medical condition which she again nods and gestures in agreement with. Exploration of current hospitalization related to elbow infection which she is in agreement with. She does not recall beyond the point of requiring an oxygen mask which was when she had clinical deterioration and eventually was intubated. Exploration of current treatments in place including intubation, dialysis, OG tube for possible ileus, potential for GI bleed. She nods her head no when discussing dialysis. Exploration that prognosis is guarded and in order to try to help her recover she would need ongoing ventilator support with a tracheostomy, feeding tube and could potentially require several more weeks in the hospital and would likely require placement in a rehabilitation facility after that. At each point discuss she nods her head in fact we know. Alternatively review with her that if she did not want a tracheostomy and wish for all the tubes and lines to be removed, which she nods emphatically yes , that she would be expected to within hours to days at most. She nods her head yes to this. Further explore that dialysis would also discontinue she nods emphatically yes to this. Explore that if she did not want to stay on the ventilator longer and tubes and lines were removed and she would be made to be comfortable and follow a natural progression of her illness until her , likely in a period of hours to days. She smiles and nods yes to this. Family is tearful. Patient again indicates no more tubes when asked. Patient holds family's hands and attempts to comfort them. She is also now living further communications with them. Family acknowledges understanding the patient does not want to continue artificial measures, and that she wants to be allowed to be comfortable until her . They are supportive of this. Discussed case with RN at length, as well as critical care Dr. Srivastava. Discussed with family will need to have additional follow-up discussion today regarding plan of care from here, providing anticipatory guidance etc. of compassionate ventilator removal etc. Family still having time to visit with patient before sedation resumed. Patient tachypneic, mildly tachycardic heart rate 115. Lungs are essentially clear. Bowel sounds not present. OG tube observed with brownish red liquid to suction. Abdomen soft, mildly distended. Not painful. Denies shortness of breath except when she is talking against the ventilator. ROS still limited as patient does answer yes and no questions but then tries to talk to further qualify. Family/friend interactions SEE ABOVE . Advance Directives Durable Power of Hydropress Operator: Completed, but not made available (patient may have had a POA completed in [place] that we do not have copies of this document at this time no reported living well) Advance Directive Specifics Significant change in goals: Met with family and patient at length at bedside patient able to participate patient expressing comfort oriented goals, family supportive of this. Will NOT want to proceed with tracheostomy, PEG does not want to continue dialysis, wants compassionate removal of artificial measures. Family later agreed to proceed with withdrawal around 9/10pm tonight 08/29/17. Objective Vital Signs Date Time Temp Pulse Resp B/P (MAP) Pulse Ox O2 Delivery O2 Flow Rate FiO2 08/29/17 07:30 96 55 08/29/17 06:00 104 08/29/17 04:00 98.2 105 20 96/66 (76) 95 08/29/17 04:00 55 08/29/17 04:00 105 08/29/17 03:12 100 55 08/29/17 02:00 110 08/29/17 01:32 94 55 08/29/17 00:13 116 116/59 08/29/17 00:00 99.2 116 20 116/59 (78) 96 08/29/17 00:00 55 08/29/17 00:00 106 08/28/17 22:00 106 08/28/17 21:57 100 55 08/28/17 20:29 93 55 08/28/17 20:00 112 08/28/17 20:00 99.7 112 20 108/56 (73) 95 08/28/17 20:00 55 08/28/17 19:00 95 Mechanical Ventilator 55 08/28/17 18:00 90 08/28/17 16:00 99.5 101 20 91/53 (66) 96 08/28/17 16:00 101 08/28/17 16:00 60 08/28/17 15:48 95 60 08/28/17 14:30 110 83/53 08/28/17 14:00 120 08/28/17 12:00 112 08/28/17 12:00 98.6 112 16 100/58 (72) 94 08/28/17 12:00 60 Intake & Output 08/29/17 08/29/17 07:00 19:00 Intake Total 583 ml Output Total 325 ml Balance 258 ml IV Total 583 ml Stool Total 200 ml Gastric Drainage Total 125 ml Physical Exam CONSTITUTIONAL/GENERAL: This is an adequately nourished patient, in no apparent distress, alert on mechanical vent TUBES/LINES/DRAINS: Right IJ central line, ET tube, OG tube, rectal bag, Dee catheter, soft wrist restraints SKIN: No jaundice, rashes, or lesions. Healing incision left elbow eduar intact asymptomatic. Skin temperature appropriate. Not diaphoretic. HEAD: Atraumatic. Normocephalic. CARDIOVASCULAR: Regular rate and rhythm, 110s. No JVD. Peripheral pulses symmetric. 1-2+ peripheral edema bilateral hands. RESPIRATORY/CHEST: Symmetric, mildly labored respirations. Clear. Decreased air movement. GASTROINTESTINAL: Abdomen soft, nontender, mildly distended, nondistended. No hepato-splenomegaly, or palpable masses. Tube feed held, OG tube to suction. Brownish red output. No bowel sounds. GENITOURINARY: Without palpable bladder distension. Dee catheter in place scant urine output. MUSCULOSKELETAL: Extremities without clubbing, cyanosis. 1-2+ edema bilateral hands. No joint effusion noted. No mottling or clubbing. NEUROLOGICAL: Sedation held on mechanical vent. Alert nods appropriately, mouth some words. Answers situational assessment questions appropriately. Also gestures with hands appropriately. Appears to have reasonable insight and understanding. Follows commands. Moving all 4 extremities. PSYCHIATRIC: No obvious anxiety/depression--limited assessment due to ventilation/clinical condition. Diagnostic Tests Laboratory Laboratory Tests Test 08/26/17 15:10 08/26/17 20:28 08/27/17 05:08 08/27/17 12:30 Activated Partial Thromboplast Time 66.0 SEC (24.3-30.1) 73.7 SEC (24.3-30.1) 61.3 SEC (24.3-30.1) Test 08/28/17 04:25 08/28/17 10:15 08/28/17 14:12 08/29/17 05:40 Activated Partial Thromboplast Time 53.0 SEC (24.3-30.1) 61.1 SEC (24.3-30.1) Blood Urea Nitrogen 131 MG/DL (7-18) 97 MG/DL (7-18) Creatinine 8.39 MG/DL (0.50-1.00) 6.42 MG/DL (0.50-1.00) Random Glucose 97 MG/DL (74-106) 119 MG/DL (74-106) Total Protein 6.2 GM/DL (6.4-8.2) Albumin 1.9 GM/DL (3.4-5.0) 1.9 GM/DL (3.4-5.0) Calcium Level 6.9 MG/DL (8.5-10.1) 6.9 MG/DL (8.5-10.1) Phosphorus Level 16.7 MG/DL (2.5-4.9) 10.8 MG/DL (2.5-4.9) Sodium Level 134 MEQ/L (136-145) 136 MEQ/L (136-145) Potassium Level 5.6 MEQ/L (3.5-5.1) 3.9 MEQ/L (3.5-5.1) 4.7 MEQ/L (3.5-5.1) Chloride Level 85 MEQ/L (98-107) 93 MEQ/L (98-107) Carbon Dioxide Level 26.2 MEQ/L (21.0-32.0) 26.8 MEQ/L (21.0-32.0) Anion Gap 23 MEQ/L (5-15) 16 MEQ/L (5-15) Estimat Glomerular Filtration Rate 5 ML/MIN (>89) 7 ML/MIN (>89) Protein Corrected Calcium 7.4 MG/DL (8.5-10.1) Blood Gas Puncture Site LT RADIAL Blood Gas Patient Temperature 98.6 Blood Gas HCO3 28 mmol/L (22-26) Blood Gas Base Excess 2.9 mmol/L (-2-2) Blood Gas Oxygen Saturation 91 % (90-100) Arterial Blood pH 7.35 (7.380-7.420) Arterial Blood Partial Pressure CO2 52 mmHg (38-42) Arterial Blood Partial Pressure O2 76 mmHg (61-120) Arterial Blood Oxygen Content 12.2 Vol % (12.0-20.0) Arterial Blood Carboxyhemoglobin 1.4 % (0-4) Arterial Blood Methemoglobin 1.8 % (0-2) Blood Gas Hemoglobin 9.5 G/DL (12.0-16.0) Oxygen Delivery Device VENTILATOR Blood Gas Ventilator Setting [facility]/20/550/1.2/+10 Blood Gas Inspired Oxygen 60 % White Blood Count 14.0 TH/MM3 (4.0-11.0) Red Blood Count 2.69 MIL/MM3 (4.00-5.30) Hemoglobin 8.4 GM/DL (11.6-15.3) Hematocrit 25.7 % (35.0-46.0) Mean Corpuscular Volume 95.5 FL (80.0-100.0) Mean Corpuscular Hemoglobin 31.2 PG (27.0-34.0) Mean Corpuscular Hemoglobin Concent 32.6 % (32.0-36.0) Red Cell Distribution Width 16.7 % (11.6-17.2) Platelet Count 198 TH/MM3 (150-450) Mean Platelet Volume 8.6 FL (7.0-11.0) Neutrophils (%) (Auto) 94.9 % (16.0-70.0) Lymphocytes (%) (Auto) 1.8 % (9.0-44.0) Monocytes (%) (Auto) 2.9 % (0.0-8.0) Eosinophils (%) (Auto) 0.1 % (0.0-4.0) Basophils (%) (Auto) 0.3 % (0.0-2.0) Neutrophils # (Auto) 13.3 TH/MM3 (1.8-7.7) Lymphocytes # (Auto) 0.3 TH/MM3 (1.0-4.8) Monocytes # (Auto) 0.4 TH/MM3 (0-0.9) Eosinophils # (Auto) 0.0 TH/MM3 (0-0.4) Basophils # (Auto) 0.0 TH/MM3 (0-0.2) CBC Comment DIFF FINAL Differential Comment Result Diagram: 08/29/17 0540 08/29/17 0540 Microbiology Last Impressions Chest X-Ray 08/28/17 0600 Signed Impressions: Service Date/Time: Monday, August 28, 2017 03:29 - CONCLUSION: 1. Patchy alveolar disease characteristic of edema or pneumonia. There has been no significant change when compared to the prior exam. Ranjit Espinal MD Abdomen/Pelvis CT 08/20/17 0000 Signed Impressions: Service Date/Time: Sunday, August 20, 2017 17:12 - CONCLUSION: 1. No evidence of discrete renal mass however there is decreased sensitivity without the use of contrast. 2. Minimal left perinephric stranding or fluid. 3. No evidence of hydronephrosis, nephrolithiasis or retroperitoneal hematoma. 4. Status post cholecystectomy. 5. Extensive lung infiltration. Mitesh Rojas MD Renal Ultrasound 08/19/17 0000 Signed Impressions: Service Date/Time: Saturday, August 19, 2017 13:50 - CONCLUSION: 1. Mildly increased renal cortical echogenicity consistent with medical renal disease. 2. Questionable minimally hyperechoic solid mass in the mid left kidney measuring 1.2 x 1.4 1.0 cm. Further evaluation may be performed with CT or MRI renal mass protocol on an outpatient basis. Jovi Loaiza MD Upper Extremity Ultrasound 08/16/17 0000 Signed Impressions: Service Date/Time: Wednesday, August 16, 2017 13:39 - CONCLUSION: Extensive right upper extremity DVT Cleve Barnett MD Chest CT 08/10/17 0000 Signed Impressions: Service Date/Time: Thursday, August 10, 2017 17:36 - CONCLUSION: 1. Upper lobe predominant central emphysema with upper lobe predominant diffuse interstitial and groundglass opacities. Differential considerations include developing ARDS, atypical infection, pulmonary edema, sarcoidosis, and drug induced lung disease amongst other etiologies. 2. Trace right pleural effusion. Jovi Loaiza MD Elbow X-Ray 08/07/17 0000 Signed Impressions: Service Date/Time: Monday, August 07, 2017 13:12 - CONCLUSION: Joint effusion, no fracture Naveed Sage MD FACR Elbow MRI 08/07/17 0000 Signed Impressions: Service Date/Time: Monday, August 07, 2017 14:11 - CONCLUSION: Presumed inflammatory process mainly involving the brachialis. The joint is suspected to be infected as well. There is no osteomyelitis as yet. Neurovascular bundle is displaced medially there are brachial bifurcation findings have been discussed with Latosha FRANCOIS on today's date. Naveed Sage MD FACR Imaging Last Impressions Chest X-Ray 08/28/17 0600 Signed Impressions: Service Date/Time: Monday, August 28, 2017 03:29 - CONCLUSION: 1. Patchy alveolar disease characteristic of edema or pneumonia. There has been no significant change when compared to the prior exam. Ranjit Espinal MD Abdomen/Pelvis CT 08/20/17 0000 Signed Impressions: Service Date/Time: Sunday, August 20, 2017 17:12 - CONCLUSION: 1. No evidence of discrete renal mass however there is decreased sensitivity without the use of contrast. 2. Minimal left perinephric stranding or fluid. 3. No evidence of hydronephrosis, nephrolithiasis or retroperitoneal hematoma. 4. Status post cholecystectomy. 5. Extensive lung infiltration. Mitesh Rojas MD Renal Ultrasound 08/19/17 0000 Signed Impressions: Service Date/Time: Saturday, August 19, 2017 13:50 - CONCLUSION: 1. Mildly increased renal cortical echogenicity consistent with medical renal disease. 2. Questionable minimally hyperechoic solid mass in the mid left kidney measuring 1.2 x 1.4 1.0 cm. Further evaluation may be performed with CT or MRI renal mass protocol on an outpatient basis. Jovi Loaiza MD Upper Extremity Ultrasound 08/16/17 0000 Signed Impressions: Service Date/Time: Wednesday, August 16, 2017 13:39 - CONCLUSION: Extensive right upper extremity DVT Cleve Barnett MD Chest CT 08/10/17 0000 Signed Impressions: Service Date/Time: Thursday, August 10, 2017 17:36 - CONCLUSION: 1. Upper lobe predominant central emphysema with upper lobe predominant diffuse interstitial and groundglass opacities. Differential considerations include developing ARDS, atypical infection, pulmonary edema, sarcoidosis, and drug induced lung disease amongst other etiologies. 2. Trace right pleural effusion. Jovi Loaiza MD Elbow X-Ray 08/07/17 0000 Signed Impressions: Service Date/Time: Monday, August 07, 2017 13:12 - CONCLUSION: Joint effusion, no fracture Naveed Sage MD FACR Elbow MRI 08/07/17 0000 Signed Impressions: Service Date/Time: Monday, August 07, 2017 14:11 - CONCLUSION: Presumed inflammatory process mainly involving the brachialis. The joint is suspected to be infected as well. There is no osteomyelitis as yet. Neurovascular bundle is displaced medially there are brachial bifurcation findings have been discussed with Latosha FRANCOIS on today's date. 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 Has 4 adult children, he children's biological father secondary to suicide 3 years ago. Patient still legally to [employer] however they have been though still on speaking terms. Patient's children all live out of the area. Spiritual:Believes in God but no particular zenobia family does not think she would want architect in training visits at this time. Legal:Patient is not capacitated participate in decision-making. Not clear if or when she will regain capacity. She is still legally , per [place] statutes her would be appropriate legal proxy. Apparently earlier during this admission course this proxy wished to "sign over his rights" to one of pt's 4 adult children; however only a patient can designate a healthcare surrogate therefore the proxy cannot actually designate whom would be the legal decision maker. In This case the would in fact be the legal decision maker; unless he wishes to relinquish his rights, then legal decision making would fall to the majority of 4 adult children Ethical issues impacting care: Important Contacts spouse Haider Hollingsworth [phone] Adult daughter Dimas Hollingsworth -- Adult son Davonte Hollingsworth [phone] Adult son Nahun Hollingsworth [phone] Adult son Naif Hollingsworth [phone] Patient brother Nahun [phone] . Prognosis This patient was admitted with sepsis to the elbow joint-she required I&D. She subsequently has developed acute respiratory failure, acute kidney failure, and is currently experiencing GI motility issues. We'll. She likely had severe/ advanced underlying lung disease. Prognosis for full recovery is poor, possible she may survive current hospitalization with ongoing hospitalization requiring tracheostomy and PEG Code Status: Full Code Plan * Legal decision maker: Patient is not capacitated participate in decision- making. Not clear if or when she will regain capacity. 08/27/17-- [employer] does not wish to be the decision-maker, all the adult children will serve as decision makers. 08/29/17-patient sedation lightened for a short time of approximately 20 minutes, reversal agents given, patient able to communicate her wishes to her family and medical team present. Assist family to complete verbal documentation /verbal advanced directive documenting wishes. Sedation was resumed maintain medical stability, ventilation, so family will continue to need to serve as proxy for patient. * Goals: Palliative met with patient and family at bedside at length regarding conditions and treatment options going forward. Patient sedation was lightened , reversed for this. She was able to indicate she did NOT WANT a tracheostomy, PEG, dialysis or any other artificial measures and wanted removal of artificial measures allowing for a comfortable/peaceful , which would be likely expected in the period of hours to days. Family aware of this, supportive of patient's wishes. anticipatory guidance provided. Family later agreed to proceed with withdrawal around 9/10pm tonight 08/29/17. * Exhibits B, C signed, in chart. comfort orders for pre-withdrawal, withdrawal and post withdrawal to be entered this afternoon and timed to begin no sooner than 9pm. critical care to discontinue other orders at that time. No further escalation of tx that is not comfort oriented before that time (IE no pressors ) Family open to hospice services if pt survives beyond 24 hrs. * CODE STATUS:changed to DNR * SYMPTOMS: --Dyspnea- emergently intubated 08/14, CT chest indicative of severe interstitial lung process, fibrosis. Patient not tolerating ventilator weaning thus far, still requiring 70-90% FiO2. Will likely require tracheostomy for ongoing ventilator support if goals are aggressive; early breathing comfortable with fentanyl drip for sedation --Malnutrition-albumin on admission was low at 2.5 remains low during this course. Initially with high residuals and receiving low rate tube feed 10 mL's an hour, as continued to not tolerate now requiring OG tube to suction; suspected ileus; possible GI bleed. GI consult pending. Some diarrhea stool negative for C. difficile. Will likely require PEG tube for long-term artificial nutrition. --Pain-chronic, patient with RA utilized naproxen outpatient for, with usually good control, in addition to her recent arm injury with severe pain- was comfortable on fentanyl drip. Today comfortable to exam. * Palliative care will continue to follow during hospital course as condition evolves, to assist patient/decision-maker with understanding of medical conditions, weighing benefits/burdens of treatment options, for clarification of goals of treatment. Additionally will assist with any symptoms of palliative concern . Time Spent Total Floor Time (mins): 75 (at length discussion w pt, family, exam, d/w Critical care, RN) Attestation To help prompt me to consider important information that might be impacting today's encounter and assessment, information from prior notes written by myself or my colleagues may have been "brought forward" into today's note. My signature on this note, however, is an attestation that I personally performed the exam, history, and/or decision-making noted today, and, unless otherwise indicated, the interactions with patient, family, and staff as well as the review of records all occurred today. I also attest that the listed assessment and stated plan reflect my best clinical judgment today based on the combination of historical information, prior notes, and today's exam/ interactions. When time spent is documented, it refers only to time spent today by the signer, or if indicated, combined time spent today by collaborating physician/nurse practitioner. Ciera Morales Aug 29, 2017 11:47
--- NOTE | 2017-08-29 12:47 | HHI.PR ---
Subjective Remarks Remains Intubated and on Vent support , critical and on FIO2 at 80 %.On A/ C rate 20 Remains .Sedated. and assisting the vent. Family requests withdrawal vent CXR shows Bilateral infiltrates. Objective Vital Signs Date Time Temp Pulse Resp B/P (MAP) Pulse Ox O2 Delivery O2 Flow Rate FiO2 08/29/17 12:00 55 08/29/17 12:00 99.5 116 23 126/59 (81) 97 08/29/17 12:00 116 08/29/17 11:17 93 55 08/29/17 10:00 102 08/29/17 08:00 55 08/29/17 08:00 99.8 98 20 99/64 (76) 95 08/29/17 08:00 98 08/29/17 07:30 96 55 08/29/17 07:00 95 Mechanical Ventilator 55 08/29/17 06:00 104 08/29/17 04:00 98.2 105 20 96/66 (76) 95 08/29/17 04:00 55 08/29/17 04:00 105 08/29/17 03:12 100 55 08/29/17 02:00 110 08/29/17 01:32 94 55 08/29/17 00:13 116 116/59 08/29/17 00:00 99.2 116 20 116/59 (78) 96 08/29/17 00:00 55 08/29/17 00:00 106 08/28/17 22:00 106 08/28/17 21:57 100 55 08/28/17 20:29 93 55 08/28/17 20:00 112 08/28/17 20:00 99.7 112 20 108/56 (73) 95 08/28/17 20:00 55 08/28/17 19:00 95 Mechanical Ventilator 55 08/28/17 18:00 90 08/28/17 16:00 99.5 101 20 91/53 (66) 96 08/28/17 16:00 101 08/28/17 16:00 60 08/28/17 15:48 95 60 08/28/17 14:30 110 83/53 08/28/17 14:00 120 I/O 08/28/17 08/28/17 08/28/17 08/29/17 08/29/17 08/29/17 06:59 14:59 22:59 06:59 14:59 22:59 Intake Total 361 ml 697 ml 583 ml Output Total 715 ml 3000 ml 685 ml 325 ml Balance -354 ml -3000 ml 12 ml 258 ml IV Total 361 ml 697 ml 583 ml Tube Feeding 0 ml Output Urine Total 15 ml 60 ml Stool Total 50 ml 25 ml 200 ml Gastric Drainage Total 650 ml 600 ml 125 ml Hemodialysis 3000 ml Result Diagram: 08/29/1753908/29/17539 Objective Remarks GENERAL: This is a averagely built middle-aged white female who is intubated HEENT: Head normocephalic. Pupils reactive . Nasal mucosa clear.No thyroid enlargement or lymphadenopathy. CHEST: Decreased excursions. Expiratory wheezes scattered throughout both lung cabrera. HEART: The heart sounds are irregular, S1-S2. No definite murmur. No S3. ABDOMEN: The abdomen is protuberant and soft without masses or organomegaly or tenderness. EXTREMITIES: Mild joint deformities. There is mild peripheral edema. Peripheral pulses felt. Sedated. SKIN: No lesions observed. Assessment and Plan Assessment and Plan IMPRESSION 1. COPD with emphysema and chronic bronchitis. 2. Cellulitis and left elbow joint infection. 3. Nicotine dependency. 4. History of rheumatoid arthritis and interstitial lung disease. 5. Fibromyalgia. 6. ARDS Plan : 1. Cont Nebs qid , duoneb. 2. D/C Vent support per Family . 3. Cont Antibiotics.Per ID 4. Comfort care 5. Cont Heparin S/Q 6. O2 via mask 50 % 7. palliative care to see .Poor prognosis. Perla Gonzalez MD Aug 29, 2017 12:47
--- NOTE | 2017-08-29 12:49 | HHI.PR ---
Subjective Remarks Remains Intubated and on Vent support , critical and on FIO2 at 80 %.On A/ C rate 20 Remains .Sedated. and assisting the vent.Has a UGI bleed. Family requests withdrawal of vent . CXR shows Bilateral infiltrates. Objective Vital Signs Date Time Temp Pulse Resp B/P (MAP) Pulse Ox O2 Delivery O2 Flow Rate FiO2 08/29/17 12:00 55 08/29/17 12:00 99.5 116 23 126/59 (81) 97 08/29/17 12:00 116 08/29/17 11:17 93 55 08/29/17 10:00 102 08/29/17 08:00 55 08/29/17 08:00 99.8 98 20 99/64 (76) 95 08/29/17 08:00 98 08/29/17 07:30 96 55 08/29/17 07:00 95 Mechanical Ventilator 55 08/29/17 06:00 104 08/29/17 04:00 98.2 105 20 96/66 (76) 95 08/29/17 04:00 55 08/29/17 04:00 105 08/29/17 03:12 100 55 08/29/17 02:00 110 08/29/17 01:32 94 55 08/29/17 00:13 116 116/59 08/29/17 00:00 99.2 116 20 116/59 (78) 96 08/29/17 00:00 55 08/29/17 00:00 106 08/28/17 22:00 106 08/28/17 21:57 100 55 08/28/17 20:29 93 55 08/28/17 20:00 112 08/28/17 20:00 99.7 112 20 108/56 (73) 95 08/28/17 20:00 55 08/28/17 19:00 95 Mechanical Ventilator 55 08/28/17 18:00 90 08/28/17 16:00 99.5 101 20 91/53 (66) 96 08/28/17 16:00 101 08/28/17 16:00 60 08/28/17 15:48 95 60 08/28/17 14:30 110 83/53 08/28/17 14:00 120 I/O 08/28/17 08/28/17 08/28/17 08/29/17 08/29/1717 07:00 15:00 23:00 07:00 15:00 23:00 Intake Total 361 ml 697 ml 583 ml Output Total 715 ml 3000 ml 685 ml 325 ml Balance -354 ml -3000 ml 12 ml 258 ml IV Total 361 ml 697 ml 583 ml Tube Feeding 0 ml Output Urine Total 15 ml 60 ml Stool Total 50 ml 25 ml 200 ml Gastric Drainage Total 650 ml 600 ml 125 ml Hemodialysis 3000 ml Result Diagram: 08/29/1753908/29/17539 Objective Remarks GENERAL: This is a averagely built middle-aged white female who is intubated HEENT: Head normocephalic. Pupils reactive . Nasal mucosa clear.No thyroid enlargement or lymphadenopathy. CHEST: Decreased excursions. Expiratory wheezes scattered throughout both lung cabrera. HEART: The heart sounds are irregular, S1-S2. No definite murmur. No S3. ABDOMEN: The abdomen is protuberant and soft without masses or organomegaly or tenderness. EXTREMITIES: Mild joint deformities. There is mild peripheral edema. Peripheral pulses felt. Sedated. SKIN: No lesions observed. Assessment and Plan Assessment and Plan IMPRESSION 1. COPD with emphysema and chronic bronchitis. 2. Cellulitis and left elbow joint infection. 3. Nicotine dependency. 4. History of rheumatoid arthritis and interstitial lung disease. 5. Fibromyalgia. 6. ARDS Plan : 1. Cont Nebs qid , duoneb. 2. D/C Vent support per Family . 3. Cont Antibiotics.Per ID 4. Comfort care 5. Cont Heparin S/Q 6. O2 via mask 50 % 7. palliative care to see .Poor prognosis. Perla Gonzalez MD Aug 29, 2017 12:49
[2017-08-29] MEDS: AZTREONAM INJ 500 MG in SODIUM CHLORIDE 0.9% INJ 100 ML IV SCH ×2 (13:39→20:42)
--- NOTE | 2017-08-29 14:08 | HHI.NPPN ---
Subjective Renal Failure: Acute Interval History She remains intubated, although awake and restless. The pt was able to tell palliative that she wanted compassionate withdrawal of life support. Family agrees. (Yanely Lipscomb) Review of Systems General General Remarks unable to evaluate (Yanely Lipscomb) Objective Data Data Vital Signs Date Time Temp Pulse Resp B/P (MAP) Pulse Ox O2 Delivery O2 Flow Rate FiO2 08/29/17 12:00 55 08/29/17 12:00 99.5 116 23 126/59 (81) 97 08/29/17 12:00 116 08/29/17 11:17 93 55 08/29/17 10:00 102 08/29/17 08:00 55 08/29/17 08:00 99.8 98 20 99/64 (76) 95 08/29/17 08:00 98 08/29/17 07:30 96 55 08/29/17 07:00 95 Mechanical Ventilator 55 08/29/17 06:00 104 08/29/17 04:00 98.2 105 20 96/66 (76) 95 08/29/17 04:00 55 08/29/17 04:00 105 08/29/17 03:12 100 55 08/29/17 02:00 110 08/29/17 01:32 94 55 08/29/17 00:13 116 116/59 08/29/17 00:00 99.2 116 20 116/59 (78) 96 08/29/17 00:00 55 08/29/17 00:00 106 08/28/17 22:00 106 08/28/17 21:57 100 55 08/28/17 20:29 93 55 08/28/17 20:00 112 08/28/17 20:00 99.7 112 20 108/56 (73) 95 08/28/17 20:00 55 08/28/17 19:00 95 Mechanical Ventilator 55 08/28/17 18:00 90 08/28/17 16:00 99.5 101 20 91/53 (66) 96 08/28/17 16:00 101 08/28/17 16:00 60 08/28/17 15:48 95 60 08/28/17 14:30 110 83/53 (Yanely Lipscomb) -: 08/29/17 0540 08/29/17 0540 Imaging Last 72 hours Impressions Chest X-Ray 08/28/17 0600 Signed Impressions: Service Date/Time: Monday, August 28, 2017 03:29 - CONCLUSION: 1. Patchy alveolar disease characteristic of edema or pneumonia. There has been no significant change when compared to the prior exam. Ranjit Espinal MD Tubes & Lines: Vas-Cath, Dee Drip Comment propofol, fentanyl other gtts d/c (Yanely Lipscomb) Physical Exam General Appearance: Well Developed, Well Nourished, Comfortable Appearance Remarks intubated, awake (Yanely Lipscomb) Throat Throat Exam: Oral Mucosa [place] & Moist (Yanely Lipscomb) Pulmonary Resp Exam: Clear Bilaterally, Breath Sounds Equal, Decreased Bases (Yanely Lipscomb) Cardiology CV Exam: Regular, Normal Sinus Rhythm, Good Perfusion (Yanely Lipscomb) Gastrointestinal/Abdomen GI Exam: Soft, Non-Tender, Bowel Sounds Present (Yanely Lipscomb) Musculoskeletal MS Exam: Joints Intact, Normal Tone, Unable to Ambulate (Yanely Lipscomb) Integumentary Skin Exam: Warm, Dry, Intact Skin Remarks left elbow with sutures (Yanely Lipscomb) Extremeties Extremities Exam: Pedal Pulses Palpable, Moderate Edema, Pitting Edema Extremeties Remarks right arm edematous (Yanely Lipscomb) Neurologic Neuro Exam: Unresponsive, Sedated (Yanely Lipscomb) VTE Prophylaxis Device: SCDs (Yanely Lipscomb) Assessment/Plan Assessment Summary: ROLAND/Acute Renal Failure, Acute Tubular Necrosis Problem List: (1) Acute renal failure ICD Codes: N17.9 - Acute kidney failure, unspecified Plan: She has normal renal function at baseline Oliguric renal failure; Suspected ATN from sepsis with hypotension Low complement levels noted Post infectious GN is less likely given negative ANCA; anti-GBM in process S/p vascath placement, HD initiated 08/22, now on MWF HD schedule Dialyzed yesterday with 3L fluid removal Phosphorus has improved Pt and family have decided to withdrawal from life support, stop dialysis support (2) Joint infection ICD Codes: M00.9 - Pyogenic arthritis, unspecified Status: Acute Plan: ID is following s/p I&D on 08/07 On cefepime and clindamycin (3) Anemia ICD Codes: D64.9 - Anemia, unspecified Plan: hb improved s/p transfusion of 2 units 08/21 on heparin for anticoagulation (4) DVT (deep venous thrombosis) ICD Codes: I82.409 - Acute embolism and thrombosis of unspecified deep veins of unspecified lower extremity Plan: extensive right arm DVT Heparin gtt stopped due to decision to withdrawal Plan We will sign off at this time (Yanely Lipscomb) Plan patient was seen and examined. I discussed the clinical status of the patient with her family at the bedside. Family chose to withdraw life support, and further dialytic therapy. (Jaime Moya MD) Yanely Lipscomb Aug 29, 2017 14:07 Jaime Moya MD Aug 29, 2017 20:44
[2017-08-29] MEDS ORDERED: MORPHINE SULFATE 4 MG/ML INJ IV PUSH ONE (15:45)
[2017-08-29] MEDS ORDERED: ACETAMINOPHEN 650 MG SUPP RECTAL PRN ×2 (15:45→16:15)
[2017-08-29] MEDS ORDERED: HYOSCYAMINE 0.5 MG/ML AMP IV PUSH PRN ×2 (15:45→21:00)
[2017-08-29] MEDS ORDERED: LORazepam 2 MG/ML VIAL IV PUSH ONE ×4 (15:45→21:15)
[2017-08-29] MEDS: MIDAZOLAM 100 MG/100 ML INJ 100 ML IV PRN (16:50)
[2017-08-29 17:52] LABS: MYELOPEROXIDASE LESS THAN 1.0 AI (<1.0); PROTEINASE-3 LESS THAN 1.0 AI (<1.0)
[2017-08-29] MEDS ORDERED: LORazepam 2 MG/ML VIAL IV PUSH PRN ×3 (21:00→21:15)
[2017-08-29] MEDS ORDERED: fentaNYL DRIP 250 ML IV PRN (21:00)
[2017-08-29] MEDS ORDERED: HYOSCYAMINE 0.5 MG/ML AMP IV PUSH ONE ×2 (21:00→21:15)
[2017-08-29] MEDS ORDERED: HYDROmorphone HCL PF 2 MG/ML VIAL IV PUSH PRN ×2 (21:15)
[2017-08-29] MEDS ORDERED: MORPHINE SULFATE 8 MG/ML INJ IV PUSH ONE (21:15)
[2017-08-29] MEDS ORDERED: MORPHINE SULFATE 4 MG/ML INJ IV PUSH PRN (21:15)
[2017-08-30] MEDS ORDERED: LORazepam 2 MG/ML VIAL IV PUSH SCH (03:00)
--- NOTE | 2017-08-30 14:45 | HHI.DS ---
Summary Note Date of : Aug 29, 2017 Time Of : 2240 Admission Date Aug 07, 2017 at 16:36 Admitting Diagnosis left elbow joint abscess Diagnosis at Time of : (1) Acute respiratory failure with hypoxia ICD Code: J96.01 - Acute respiratory failure with hypoxia Diagnosis: Principal (2) Joint infection ICD Code: M00.9 - Pyogenic arthritis, unspecified Diagnosis: Principal (3) Septic arthritis of elbow, left ICD Code: M00.9 - Pyogenic arthritis, unspecified Diagnosis: Secondary (4) ROLAND (acute kidney injury) ICD Code: N17.9 - Acute kidney failure, unspecified Diagnosis: Principal (5) DVT (deep venous thrombosis) ICD Code: I82.409 - Acute embolism and thrombosis of unspecified deep veins of unspecified lower extremity Diagnosis: Principal (6) Anemia ICD Code: D64.9 - Anemia, unspecified Diagnosis: Secondary Procedures 08/22 - hemodialysis catheter 07/28 - I&D left septic elbow, drainage of arm abscess Brief History Ms. Hollingsworth is a 57-year-old female patient with a known medical history of COPD , rheumatoid arthritis and fibromyalgia who presented to the ED with complaints of worsening left elbow swelling and pain. Patient states that she was in [place] earlier this month with friends and tripped, falling on her elbow. At the time patient went to the hospital for sutures and 9 days later started to develop swelling and erythema to the site, was placed on Keflex and sutures removed. Patient noticed three days ago the elbow began to swell again and develop erythema with worsening pain so she presented here. Pain is throbbing in nature, focused in the olecranon area, no radiation, 7/10 on pain scale, with activity worsening pain and pain medication relieving pain for a short time. Patient denies any recent illness including associated fevers, chills, cough, headache, lightheadedness, dizziness, shortness of breath, abdominal pain , nausea, vomiting, diarrhea or dysuria. Denies any numbness or tingling to left hand or arm. CBC/BMP: 08/29/17 0540 08/29/17 0540 Significant Findings Laboratory Tests Test 08/28/17 04:25 08/28/17 10:15 08/28/17 14:12 08/29/17 05:40 Activated Partial Thromboplast Time 53.0 SEC (24.3-30.1) 61.1 SEC (24.3-30.1) Blood Urea Nitrogen 131 MG/DL (7-18) 97 MG/DL (7-18) Creatinine 8.39 MG/DL (0.50-1.00) 6.42 MG/DL (0.50-1.00) Total Protein 6.2 GM/DL (6.4-8.2) Albumin 1.9 GM/DL (3.4-5.0) 1.9 GM/DL (3.4-5.0) Calcium Level 6.9 MG/DL (8.5-10.1) 6.9 MG/DL (8.5-10.1) Phosphorus Level 16.7 MG/DL (2.5-4.9) 10.8 MG/DL (2.5-4.9) Sodium Level 134 MEQ/L (136-145) Potassium Level 5.6 MEQ/L (3.5-5.1) Chloride Level 85 MEQ/L (98-107) 93 MEQ/L (98-107) Anion Gap 23 MEQ/L (5-15) 16 MEQ/L (5-15) Estimat Glomerular Filtration Rate 5 ML/MIN (>89) 7 ML/MIN (>89) Protein Corrected Calcium 7.4 MG/DL (8.5-10.1) Blood Gas HCO3 28 mmol/L (22-26) Blood Gas Base Excess 2.9 mmol/L (-2-2) Arterial Blood pH 7.35 (7.380-7.420) Arterial Blood Partial Pressure CO2 52 mmHg (38-42) Blood Gas Hemoglobin 9.5 G/DL (12.0-16.0) White Blood Count 14.0 TH/MM3 (4.0-11.0) Red Blood Count 2.69 MIL/MM3 (4.00-5.30) Hemoglobin 8.4 GM/DL (11.6-15.3) Hematocrit 25.7 % (35.0-46.0) Neutrophils (%) (Auto) 94.9 % (16.0-70.0) Lymphocytes (%) (Auto) 1.8 % (9.0-44.0) Neutrophils # (Auto) 13.3 TH/MM3 (1.8-7.7) Lymphocytes # (Auto) 0.3 TH/MM3 (1.0-4.8) Random Glucose 119 MG/DL (74-106) Imaging Last Impressions Chest X-Ray 08/28/17 0600 Signed Impressions: Service Date/Time: Monday, August 28, 2017 03:29 - CONCLUSION: 1. Patchy alveolar disease characteristic of edema or pneumonia. There has been no significant change when compared to the prior exam. Ranjit Espinal MD Abdomen/Pelvis CT 08/20/17 0000 Signed Impressions: Service Date/Time: Sunday, August 20, 2017 17:12 - CONCLUSION: 1. No evidence of discrete renal mass however there is decreased sensitivity without the use of contrast. 2. Minimal left perinephric stranding or fluid. 3. No evidence of hydronephrosis, nephrolithiasis or retroperitoneal hematoma. 4. Status post cholecystectomy. 5. Extensive lung infiltration. Mitesh Rojas MD Renal Ultrasound 08/19/17 0000 Signed Impressions: Service Date/Time: Saturday, August 19, 2017 13:50 - CONCLUSION: 1. Mildly increased renal cortical echogenicity consistent with medical renal disease. 2. Questionable minimally hyperechoic solid mass in the mid left kidney measuring 1.2 x 1.4 1.0 cm. Further evaluation may be performed with CT or MRI renal mass protocol on an outpatient basis. Jovi Loaiza MD Upper Extremity Ultrasound 08/16/17 0000 Signed Impressions: Service Date/Time: Wednesday, August 16, 2017 13:39 - CONCLUSION: Extensive right upper extremity DVT Cleve Barnett MD Chest CT 08/10/17 0000 Signed Impressions: Service Date/Time: Thursday, August 10, 2017 17:36 - CONCLUSION: 1. Upper lobe predominant central emphysema with upper lobe predominant diffuse interstitial and groundglass opacities. Differential considerations include developing ARDS, atypical infection, pulmonary edema, sarcoidosis, and drug induced lung disease amongst other etiologies. 2. Trace right pleural effusion. Jovi Loaiza MD Elbow X-Ray 08/07/17 0000 Signed Impressions: Service Date/Time: Monday, August 07, 2017 13:12 - CONCLUSION: Joint effusion, no fracture Naveed aSge MD FACR Elbow MRI 08/07/17 0000 Signed Impressions: Service Date/Time: Monday, August 07, 2017 14:11 - CONCLUSION: Presumed inflammatory process mainly involving the brachialis. The joint is suspected to be infected as well. There is no osteomyelitis as yet. Neurovascular bundle is displaced medially there are brachial bifurcation findings have been discussed with Latosha FRANCOIS on today's date. Naveed Sage MD [facility] Hospital Course Neuro/Psych: Fibromyalgia Depression/anxiety Chronic pain syndrome Patient is overnight was on midazolam drip at 2 mg an hour and fentanyl drip at 125 g an hour for analgesia while intubated Both these are currently on hold since 4 AM for sedation vacation Goal of RASS -2 to 0 Daily sedation vacation Continue doxepin 50 milligrams twice a day, fluoxetine 120 mg daily and bupropion 200 mg by mouth twice a day for depression/anxiety Continue gabapentin 300 mg morning and decreased from 600 mg to 300mg at night CV: Patient is currently hemodynamic stable and not requiring vasopressors and/or antihypertensives Phenylephrine was started overnight is currently off PRN metoprolol to medication regimen Resp: Acute hypoxemic respiratory failure secondary due to ILD/COPD Hemoptysis PC/AC rate 14. Inspiratory pressure 16. Tidal volume around 500. PEEP 8. Inspiratory time 2.0. FiO2 55% Ventilator bundle Albuterol/ipratropium aerosols every 4 hours with albuterol aerosols every 2 hours when necessary dyspnea Continue budesonide aerosols 0.5 mg/2 mL one inhalation twice a day Continue 3% hypertonic saline aerosols every 4 hours for thinning secretions Continue guaifenesin 400 every 8 hours Methylprednisolone 40 mg IV 2 times a day will be continued Dr. Lisa Ibarra - pulmonology is following Status post bronchoscopy 08/20 for hemoptysis. There was some suction trauma with cessation of bleeding with cold saline/sodium bicarbonate Wean FiO2 to keep saturations greater than 92% GI: Goals Nepro 50 cc an hour, currently on hold due to ileus Currently on pantoprazole drip at 8 mg an hour Docusate sodium 200 mg twice a day/senna liquid 8.6 mg twice a day for bowel regimen and propylene glycol 17 g twice a day Currently on metoclopramide 5 mg IV every 8 hours for prokinetic bowel activity. Continue E-Mycin 250 mg by tube 3 times daily Check KUB now. Start methylnaltrexone if needed : Dee catheter has been placed for accurate I's and O's in a critically ill patient Endo: Hypothyroidism Continue levothyroxine 50 mcg daily Sliding-scale insulin with Accu-Cheks to maintain euglycemia/medium regimen of Novulin R while on steroids Rheum: RA Currently holding methotrexate 2.5 mg weekly. Likely resume when clinically indicated I discussed w/ Dr. Moya. . Would not resume at the present time. Will review when arrive [facility] regarding underlying rheumatological disease. Rheumatoid factor negative here. Complements both low. Possible post infectious disease Continue folic acid 1 mg by mouth daily Renal: Acute kidney injury Left renal mass Vancomycin discontinued per infectious disease Negative urine eosinophil/creatinine and sodium reveal intrinsic renal disease Hemodialysis yesterday per nephrology Gated C3 and C4 both are low. Rheumatoid factor negative. Renal ultrasound revealed medical renal disease with cortical thickening. Left renal mass 1.2 x 1.[address] did not reveal any evidence of mass.. This is a chronic issue with this patient according to family. Nephrology consultation. Dr. Moya. renal function continues to be poor. Heme: Leukocytosis Macrocytic anemia Right upper extremity DVT Monitor CBC daily. Follow trends Ultrasound reveals nonocclusive thrombus right subclavian/axillary and occlusive thrombus radial/cephalic 08/20 held enoxaparin 80 mg subcutaneous twice a day in light of hemoptysis. Initiate heparin drip 08/23. Continue until final decision on trach/PEG. 08/20 CT abdomen/pelvis ruled out retroperitoneal hematoma ID: MRSA left elbow Cefepime/clindamycin per infectious disease Vancomycin discontinued 08/19. Cefepime discontinued 08/20. Levofloxacin and clindamycin discontinued 08/23. Piperacillin/tazobactam and linezolid discontinued Bronchoscopy cultures 08/19 no growth today. Blood cultures 2, urine and sputum today 08/23 ID on board. FEN: Hyperphosphatemia Hyperkalemia Replace electrolytes as clinically indicated Continue calcium acetate 2001 mg by mouth 3 times a day D50/insulin/Kayexalate/calcium gluconate/bicarbonate 1 now. Recheck potassium in 3 hours MSK: Status post ORIF left septic elbow 07/28 - MRSA - brachialis Long-term antibiotics per infectious disease Access - Right IJ CVL - Left IJ hemodialysis catheter placed 08/22. Prophylaxis - GI -pantoprazole - DVT - SCD/heparin drip currently on hold due to bleeding Patient's family after discussion with patient in a condition decided on withdrawal of care. Do not wish to pursue tracheostomy. Justin Srivastava MD Aug 30, 2017 14:45
== END 2017-08-29 22:41 | disposition expired | DRG 500 ==
LOC: NEPE 11:26 → NEDA 16:36 → N07B 21:37 → N03B 08-11 10:40 → HCIN 08-11 20:56 → N03A 08-14 18:19
PROVIDERS: ADMIT Hospitalist; ATTEND Internal Medicine Critical Care Medicine
PROC: 0K980ZZ Drainage of Left Upper Arm Muscle, Open Approach (ICD-10-PCS; 2017-08-07)
PROC: 0R9M0ZZ Drainage of Left Elbow Joint, Open Approach (ICD-10-PCS; principal; 2017-08-07 19:06)
PROC: 5A1955Z Respiratory Ventilation, Greater than 96 Consecutive Hours (ICD-10-PCS; 2017-08-14)
PROC: 0BH18EZ Insertion of Endotracheal Airway into Trachea, Via Natural or Artificial Opening Endoscopic (ICD-10-PCS; 2017-08-14)
PROC: 05HM33Z Insertion of Infusion Device into Right Internal Jugular Vein, Percutaneous Approach (ICD-10-PCS; 2017-08-14)
PROC: 0B9J8ZX Drainage of Left Lower Lung Lobe, Via Natural or Artificial Opening Endoscopic, Diagnostic (ICD-10-PCS; 2017-08-19)
PROC: 0B968ZZ Drainage of Right Lower Lobe Bronchus, Via Natural or Artificial Opening Endoscopic (ICD-10-PCS; 2017-08-19)
PROC: 0B948ZZ Drainage of Right Upper Lobe Bronchus, Via Natural or Artificial Opening Endoscopic (ICD-10-PCS; 2017-08-19)
PROC: 0B958ZZ Drainage of Right Middle Lobe Bronchus, Via Natural or Artificial Opening Endoscopic (ICD-10-PCS; 2017-08-19)
PROC: 30233N1 Transfusion of Nonautologous Red Blood Cells into Peripheral Vein, Percutaneous Approach (ICD-10-PCS; 2017-08-21)
PROC: 5A1D70Z Performance of Urinary Filtration, Intermittent, Less than 6 Hours Per Day (ICD-10-PCS; 2017-08-22)
PROC: 02HV33Z Insertion of Infusion Device into Superior Vena Cava, Percutaneous Approach (ICD-10-PCS; 2017-08-22)
DX: M00.022 Staphylococcal arthritis, left elbow (principal); J18.9 Pneumonia, unspecified organism; J96.01 Acute respiratory failure with hypoxia; N17.0 Acute kidney failure with tubular necrosis; J80 Acute respiratory distress syndrome; A41.9 Sepsis, unspecified organism; J44.0 Chronic obstructive pulmonary disease with (acute) lower respiratory infection; J84.9 Interstitial pulmonary disease, unspecified; K92.2 Gastrointestinal hemorrhage, unspecified; K56.7 Ileus, unspecified; E46 Unspecified protein-calorie malnutrition; I82.A11 Acute embolism and thrombosis of right axillary vein; M60.022 Infective myositis, left upper arm; J44.1 Chronic obstructive pulmonary disease with (acute) exacerbation; L03.114 Cellulitis of left upper limb; I82.B11 Acute embolism and thrombosis of right subclavian vein; R04.2 Hemoptysis; N39.0 Urinary tract infection, site not specified; J84.10 Pulmonary fibrosis, unspecified; M06.9 Rheumatoid arthritis, unspecified; M79.7 Fibromyalgia; B95.62 Methicillin resistant Staphylococcus aureus infection as the cause of diseases classified elsewhere; E87.6 Hypokalemia; F32.9 Major depressive disorder, single episode, unspecified; D53.9 Nutritional anemia, unspecified; E03.9 Hypothyroidism, unspecified; F17.210 Nicotine dependence, cigarettes, uncomplicated; F41.9 Anxiety disorder, unspecified; E87.70 Fluid overload, unspecified; R00.0 Tachycardia, unspecified; R19.7 Diarrhea, unspecified; E83.39 Other disorders of phosphorus metabolism; E87.5 Hyperkalemia; G89.4 Chronic pain syndrome; N28.89 Other specified disorders of kidney and ureter; Y95 Nosocomial condition; Z51.5 Encounter for palliative care; Z66 Do not resuscitate; R21 Rash and other nonspecific skin eruption; M25.422 Effusion, left elbow; Z79.899 Other long term (current) drug therapy
CPT/HCPCS: 31500; 31624; 36430; 36556; 36569; 36600; 71010; 71250; 73080; 73223; 74176; 76775; 76937; 80048; 80053; 80069; 80202; 80299; 81001; 82565; 82570; 82607; 82746; 82805; 82948; 83010; 83036; 83520; 83605; 83615; 83735; 83880; 84100; 84132; 84155; 84300; 84439; 84443; 84550; 85007; 85014; 85018; 85025; 85027; 85060; 85384; 85610; 85652; 85730; 86021; 86038; 86140; 86160; 86317; 86403; 86430; 86803; 86850; 86900; 86901; 86920; 87015; 87040; 87070; 87086; 87102; 87116; 87147; 87186; 87205; 87206; 87340; 87493; 87641; 87804; 88112; 88305; 89051; 90935; 93005; 93971; 94002; 94003; 94640; 94664; 94667; 96374; 96375; 96376; A9579; C9113; J0171; J0330; J0610; J0692; J0744; J1100; J1120; J1580; J1642; J1644; J1650; J1815; J1956; J1980; J2020; J2060; J2250; J2270; J2370; J2405; J2543; J2765; J2920; J3010; J3370; J7030; J7040; J7050; J7060; J7608; J7613; J7626; J7644; P9016; P9045; P9047